=== PATIENT | male | born 1945 | race Caucasian/White ===

== ENCOUNTER → 2017-02-26 | Outpatient (CLI) | payer MEDICARE ==
[2017-02-26 13:36] LABS: Blood Urea Nitrogen 17 mg/dL (9-20); Non-African American GFR(MDRD) >60 (>60 ml/min/1.73 sqM)
--- NOTE | 2017-02-26 14:47 | CT ---
CT CHEST FOR PULMONARY EMBOLISM. EXAMINATION TYPE: CT angio chest DATE OF EXAM: 02/26/2017 INDICATION: Patient has no complaints at time of study. Follow up study for known thoracic aortic an eurysm. CT DLP: 290.3 mGycm, Automated exposure control for dose reduction was used. CONTRAST: Patient injected with 100 mL of Omnipaque 350. COMPARISON: 02/27/2016 TECHNIQUE: CT of the chest is performed on a spiral scan at 2 mm thick sections. Study is performed with intravenous contrast timed for evaluation for pulmonary embolism. This will limit additional po rtions of the evaluation. 3-D MIP images reconstructed by the technologist are reviewed on the compu ter in the coronal and sagittal planes. FINDINGS: No persistent filling defects are evident to suggest an acute pulmonary embolism. No mediastinal or hilar adenopathy enlarged by CT criteria is evident. The ascending aorta diameter at the level of the main pulmonary artery is 4.0 cm. The main pulmonary artery diameter at the bifur cation is 3.2 cm. Coronary artery calcification is present. There is a 0.5 cm nodule within the left lung base. Series 3 image 49. This is an interval change. So me air bronchograms are within the area of pneumonitis within the right middle lobe right infrahilar region. This is increasing peribronchial thickening this region. Limited CT section through the upper abdomen are unremarkable. IMPRESSIONS: 1. No acute pulmonary embolism. 2. Known thoracic aortic aneurysm currently measuring 4.0 cm in AP dimension . No increase in size fr om prior examination is evident.
== END | disposition home or self-care (01) ==
LOC: RADCTMAIN 12:58
PROVIDERS: ATTEND Thoracic Surgery (Cardiothoracic Vascular Surgery)
DX: I71.2 Thoracic aortic aneurysm, without rupture (principal)
CPT/HCPCS: 82565; 84520; 71275; 36415; Q9967

== ENCOUNTER 2017-05-01 10:38 | Inpatient (IN) | payer MEDICARE ==
[2017-05-01 10:56] LABS: Glucose,Whole Blood 112 mg/dL (75-99)
[2017-05-01] MEDS ORDERED: SODIUM CHLORIDE 0.9% 500 ML IV STA (11:16)
--- NOTE | 2017-05-01 11:22 | ED ---
General Adult HPI - General Chief complaint: Neuro Symptoms/Deficit Stated complaint: CVA Time Seen by Provider: 05/01/17 10:45 Source: patient, RN notes reviewed Mode of arrival: wheelchair Limitations: no limitations - History of Present Illness Initial comments: This is a 72-year-old male who presents emergency Department with a past medical history significant for multiple strokes and TIAs. Patient also spastic medical history significant for multiple myeloma and COPD as well as rheumatoid arthritis. Patient comes in today because approximately an hour and a half prior to arrival he started having some increased numbness to the left lower leg and foot and weakness as well. Patient states when he tried to walk he was dragging his foot. Patient states it's much improved now for the foot still feels a little bit numb. Patient denies any headache patient denies any visual disturbance or new speech disturbance. Patient states he's had a problem with his speech ever since a previous stroke but that is been unchanged today. Patient also has some left hand weakness but that is residual from a previous stroke as well. Patient denies any chest pain palpitations difficulty breathing or shortness of breath. Patient denies any recent fever chills or cough. Patient denies any recent trauma. Patient denies abdominal pain patient denies nausea vomiting or diarrhea. - Related Data Home Medications Medication Instructions Recorded Confirmed Omeprazole [Omeprazole] 20 mg PO QAM 07/31/14 05/01/17 Prazosin [Minipress] 1 mg PO HS 07/31/14 05/01/17 Simvastatin [Simvastatin] 10 mg PO HS 07/31/14 05/01/17 Aspirin 81 mg PO HS 08/03/14 05/01/17 Albuterol Inhaler [Ventolin Hfa 2 puff INHALATION Q6HR PRN 05/01/17 05/01/17 Inhaler] Ipratropium/Albuterol Sulfate 1 puff INHALATION RT-QID 05/01/17 05/01/17 [Combivent Respimat Inhaler] Loratadine-Pseudoeph 10-240 mg 1 tab PO HS 05/01/17 05/01/17 [Claritin-D 24 Hr] Tacoma-3 Fatty Acids [Tacoma-3] 1,000 mg PO HS 05/01/17 05/01/17 guaiFENesin [Mucinex] 600 mg PO BID 05/01/17 05/01/17 Allergies Allergy/AdvReac Type Severity Reaction Status Date / Time Sulfa (Sulfonamide Allergy Rash/Hives Verified 05/01/17 11:20 Antibiotics) Review of Systems ROS Statement: Those systems with pertinent positive or pertinent negative responses have been documented in the HPI. ROS Other: All systems not noted in ROS Statement are negative. 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, RIGHT VOCAL CHORD PARTIAL PARALYSIS, LEFT UPPER PALATE PARTIAL PARALYSIS, STATES POSSIBLE BLOOD CLOT IN PAST IN BRAIN History of Any Multi-Drug Resistant Organisms: None Reported Past Surgical History: Appendectomy, Hernia Repair, Orthopedic Surgery, Tonsillectomy Additional Past Surgical History / Comment(s): LEFT BUNION SX, HEMMORIODECTOMY Additional Past Anesthesia/Blood Transfusion Reaction / Comment(s): PARALYZED VOCAL CHORDS Past Psychological History: No Psychological Hx Reported Smoking Status: Former smoker Past Alcohol Use History: Occasional Past Drug Use History: None Reported General Exam - General Exam Comments Initial Comments: GENERAL: Patient is well-developed and well-nourished. Patient is nontoxic and well- hydrated and is in no acute distress. ENT: Neck is soft and supple. No significant lymphadenopathy is noted. Oropharynx is clear. Moist mucous membranes. Neck has full range of motion without eliciting any pain. EYES: The sclera were anicteric and conjunctiva were pink and moist. Extraocular movements were intact and pupils were equal round and reactive to light. Eyelids were unremarkable. PULMONARY: Unlabored respirations. Good breath sounds bilaterally. No audible rales rhonchi or wheezing was noted. CARDIOVASCULAR: There is a regular rate and rhythm without any murmurs gallops or rubs. ABDOMEN: Soft and nontender with normal bowel sounds. No palpable organomegaly was noted. There is no palpable pulsatile mass. SKIN: Skin is clear with no lesions or rashes and otherwise unremarkable. NEUROLOGIC: Patient is alert and oriented x3. Patient has some left-sided facial droop which she states is normal. Patient has some left arm weakness which she states is normal. Patient has some decreased sensation in the left lower leg and foot which she states is new today. Patient has slurred speech but it is at his baseline from a previous stroke. Symmetrical smile. MUSCULOSKELETAL: Normal extremities with adequate strength and full range of motion. No lower extremity swelling or edema. No calf tenderness. LYMPHATICS: No significant lymphadenopathy is noted PSYCHIATRIC: Normal psychiatric evaluation. Normal interpersonal interactions appears functionally intact in deals appropriately with others. No signs of depression. No signs of anxiety. Limitations: no limitations Course Vital Signs 05/01/17 05/01/17 05/01/17 10:41 10:55 11:10 Temperature 97.4 F L 97.8 F 97.7 F Pulse Rate 72 70 97 Respiratory 16 18 18 Rate Blood Pressure 153/88 161/102 161/102 O2 Sat by Pulse 97 94 L 97 Oximetry 05/01/17 05/01/17 11:25 11:55 Temperature 97.8 F 97.8 F Pulse Rate 70 63 Respiratory 16 16 Rate Blood Pressure 155/99 150/94 O2 Sat by Pulse 96 98 Oximetry Medical Decision Making - Medical Decision Making EKG shows normal sinus rhythm at 71 bpm MA interval is 196 QRS is 82 QT interval 364 QTC is 395 per patient's EKG shows no ST segment elevation or depression or T wave abnormalities are noted. CT of the brain shows no acute abnormality - Lab Data Result diagrams: 05/01/17 11:10 05/01/17 11:10 Lab Results 05/01/17 05/01/17 05/01/17 Range/Units 10:52 11:10 11:10 WBC 3.3 L (3.8-10.6) k/uL RBC 3.98 L (4.30-5.90) m/uL Hgb 13.6 (13.0-17.5) gm/dL Hct 41.5 (39.0-53.0) % MCV 104.4 H (80.0-100.0) fL MCH 34.1 (25.0-35.0) pg MCHC 32.7 (31.0-37.0) g/dL RDW 14.1 (11.5-15.5) % Plt Count 187 (150-450) k/uL Neutrophils % 65 % Lymphocytes % 19 % Monocytes % 5 % Eosinophils % 9 % Basophils % 1 % Neutrophils # 2.2 (1.3-7.7) k/uL Lymphocytes # 0.6 L (1.0-4.8) k/uL Monocytes # 0.2 (0-1.0) k/uL Eosinophils # 0.3 (0-0.7) k/uL Basophils # 0.0 (0-0.2) k/uL Macrocytosis Slight PT (9.0-12.0) sec INR (<1.2) APTT (22.0-30.0) sec Sodium (137-145) mmol/L Potassium (3.5-5.1) mmol/L Chloride (98-107) mmol/L Carbon Dioxide (22-30) mmol/L Anion Gap mmol/L BUN (9-20) mg/dL Creatinine (0.66-1.25) mg/dL Est GFR (MDRD) Af Amer (>60 ml/min/1.73 sqM) Est GFR (MDRD) Non-Af (>60 ml/min/1.73 sqM) Glucose (74-99) mg/dL POC Glucose (mg/dL) 112 H (75-99) mg/dL POC Glu Cold Patcher ID Gopal Arroyo Calcium (8.4-10.2) mg/dL Total Bilirubin (0.2-1.3) mg/dL AST (17-59) U/L ALT (21-72) U/L Alkaline Phosphatase (38-126) U/L Total Creatine Kinase 138 (55-170) U/L CK-MB (CK-2) 3.7 H* (0.0-2.4) ng/mL CK-MB (CK-2) Rel Index 2.7 Troponin I <0.012 (0.000-0.034) ng/mL Total Protein (6.3-8.2) g/dL Albumin (3.5-5.0) g/dL 05/01/17 05/01/17 Range/Units 11:10 11:10 WBC (3.8-10.6) k/uL RBC (4.30-5.90) m/uL Hgb (13.0-17.5) gm/dL Hct (39.0-53.0) % MCV (80.0-100.0) fL MCH (25.0-35.0) pg MCHC (31.0-37.0) g/dL RDW (11.5-15.5) % Plt Count (150-450) k/uL Neutrophils % % Lymphocytes % % Monocytes % % Eosinophils % % Basophils % % Neutrophils # (1.3-7.7) k/uL Lymphocytes # (1.0-4.8) k/uL Monocytes # (0-1.0) k/uL Eosinophils # (0-0.7) k/uL Basophils # (0-0.2) k/uL Macrocytosis PT 10.1 (9.0-12.0) sec INR 1.0 (<1.2) APTT 25.2 (22.0-30.0) sec Sodium 130 L (137-145) mmol/L Potassium 4.6 (3.5-5.1) mmol/L Chloride 91 L (98-107) mmol/L Carbon Dioxide 32 H (22-30) mmol/L Anion Gap 7 mmol/L BUN 12 (9-20) mg/dL Creatinine 0.57 L (0.66-1.25) mg/dL Est GFR (MDRD) Af Amer >60 (>60 ml/min/1.73 sqM) Est GFR (MDRD) Non-Af >60 (>60 ml/min/1.73 sqM) Glucose 90 (74-99) mg/dL POC Glucose (mg/dL) (75-99) mg/dL POC Glu Cold Patcher ID Calcium 9.3 (8.4-10.2) mg/dL Total Bilirubin 0.7 (0.2-1.3) mg/dL AST 35 (17-59) U/L ALT 39 (21-72) U/L Alkaline Phosphatase 80 (38-126) U/L Total Creatine Kinase (55-170) U/L CK-MB (CK-2) (0.0-2.4) ng/mL CK-MB (CK-2) Rel Index Troponin I (0.000-0.034) ng/mL Total Protein 7.6 (6.3-8.2) g/dL Albumin 3.9 (3.5-5.0) g/dL Disposition Clinical Impression: Cerebrovascular accident Disposition: ADMITTED IP TO THIS HOSP Referrals: Harish Alvarado DO [Primary Care Provider] - 1-2 days Time of Disposition: 12:52
[2017-05-01 11:27] LABS: Basophils % (A) 1 %; CH 35.3; Eosinophils # (A) 0.3 k/uL (0-0.7); Eosinophils % (A) 9 %; HCT 41.5 % (39.0-53.0); HDW 2.18; HGB 13.6 gm/dL (13.0-17.5); Luc # (Auto) 0.06; Luc % (Auto) 2; Lymphocytes # (A) 0.6 k/uL (1.0-4.8); Lymphocytes % (A) 19 %; MCH 34.1 pg (25.0-35.0); MCHC 32.7 g/dL (31.0-37.0); MCV 104.4 fL (80.0-100.0); Macrocytosis Slight; Mean Platelet Volume 7.7; Monocytes # (A) 0.2 k/uL (0-1.0); Monocytes % (A) 5 %; Neutrophils # (A) 2.2 k/uL (1.3-7.7); Neutrophils % (A) 65 %; RBC 3.98 m/uL (4.30-5.90); RDW 14.1 % (11.5-15.5); WBC 3.3 k/uL (3.8-10.6); WBC (Perox) 3.33
--- NOTE | 2017-05-01 11:31 | XR ---
EXAMINATION TYPE: XR chest 2V DATE OF EXAM: 05/01/2017 COMPARISON: 05/09/2016 HISTORY: Shortness of breath TECHNIQUE: Frontal and lateral views of the chest are obtained. FINDINGS: Scattered senescent parenchymal changes noted. Hyperinflation compatible with COPD. Right middle lobe infiltrate or atelectasis identified. Heart size is stable. Mediastinal structures are stable and grossly unremarkable. No evidence for hilar prominence. Degenerative changes dorsal spine. IMPRESSION: 1. Right middle lobe infiltrate or atelectasis identified.
[2017-05-01 11:35] LABS: ALT 39 U/L (21-72); AST 35 U/L (17-59); Alkaline Phosphatase 80 U/L (38-126); Anion Gap 7 mmol/L; Blood Urea Nitrogen 12 mg/dL (9-20); Calcium 9.3 mg/dL (8.4-10.2); Carbon Dioxide 32 mmol/L (22-30); Chloride 91 mmol/L (98-107); Glucose 90 mg/dL (74-99); Non-African American GFR(MDRD) >60 (>60 ml/min/1.73 sqM); Potassium 4.6 mmol/L (3.5-5.1); Sodium 130 mmol/L (137-145); Total Bilirubin 0.7 mg/dL (0.2-1.3); Total Protein 7.6 g/dL (6.3-8.2)
[2017-05-01 11:42] LABS: Partial Thromboplastin Time 25.2 sec (22.0-30.0); Prothrombin Time 10.1 sec (9.0-12.0)
[2017-05-01 11:46] LABS: Creatine Kinase 138 U/L (55-170)
--- NOTE | 2017-05-01 11:55 | CT ---
EXAMINATION TYPE: CT brain wo con for TPA DATE OF EXAM: 05/01/2017 HISTORY: CVA. Neuro deficits with inability to move left leg. CT DLP: 1116 mGycm. Automated Exposure Control for Dose Reduction was Utilized. TECHNIQUE: CT scan of the head is performed without contrast. COMPARISON: MRI brain October 27, 2011. FINDINGS: There is no acute intracranial hemorrhage or midline shift identified. There is diffuse v entricular and sulcal prominence consistent with diffuse age-related cerebral atrophy. There is low- attenuation in the periventricular white matter consistent with chronic small vessel ischemic change. New metallic foreign body anterior aspect of right globe causes streak artifact limiting evaluation at this level. There is mild to moderate mucosal thickening involving ethmoid and frontal sinuses zeferino aterally. There is mild mucosal thickening in the left sphenoid sinus. IMPRESSION: No acute intracranial hemorrhage or midline shift. There is mild to moderate diffuse ag e-related cerebral atrophy and chronic small vessel ischemic change noted with progression from 2012 MRI present.
[2017-05-01 11:58] LABS: Troponin I <0.012 ng/mL (0.000-0.034)
[2017-05-01 12:02] LABS: Creatine Kinase MB 3.7 ng/mL (0.0-2.4)
[2017-05-01] MEDS ORDERED: ALBUTEROL NEBULIZED 2.5 MG/3 ML INHALATION PRN (15:05)
[2017-05-01] MEDS ORDERED: ALPRAZolam 0.25 MG TAB PO PRN (15:06)
--- NOTE | 2017-05-01 15:28 | US ---
EXAMINATION TYPE: US carotid duplex BILAT DATE OF EXAM: 05/01/2017 COMPARISON: NONE CLINICAL HISTORY: Stenosis. EXAM MEASUREMENTS: RIGHT: Peak Systolic Velocity (PSV) cm/sec ----- Right CCA: 57.9 ----- Right ICA: 56.6 ----- Right ECA: 53.9 ICA/CCA ratio: 1.0 RIGHT: End Diastole cm/sec ----- Right CCA: 13.8 ----- Right ICA: 17.9 ----- Right ECA: 7.7 LEFT: Peak Systolic Velocity (PSV) cm/sec ----- Left CCA: 69.4 ----- Left ICA: 65.8 ----- Left ECA: 59.0 ICA/CCA ratio: 0.9 LEFT: End Diastole cm/sec ----- Left CCA: 19.1 ----- Left ICA: 20. ----- Left ECA: 9.8 VERTEBRALS (direction of flow): Right Vertebral: Antegrade Left Vertebral: Antegrade Rhythm: Normal Mild atherosclerotic plaque with no velocity elevations. Grayscale images show no significant focal plaque at carotid bulb level bilaterally. Velocity measu rements and ratios are within normal limits bilaterally. IMPRESSION: No hemodynamically significant stenosis is seen in either internal carotid artery.
--- NOTE | 2017-05-01 15:54 | FL ---
EXAMINATION TYPE: FL barium swallow w video DATE OF EXAM: 05/01/2017 MODIFIED SWALLOW / DEGLUTITION STUDY CLINICAL HISTORY: Rule out aspiration. Complex history of known vocal cord paralysis TECHNIQUE: Deglutition study is performed utilizing thin liquid barium, honey and nectar thick liqui d barium, barium thick applesauce, and barium coated cracker.. A total of 49 seconds of fluoroscopic time was utilized during procedure. Approximately 6 cine sequences were captured, no images are sent to PACS. COMPARISON: None. FINDINGS: The oral facial satisfactory initiation but there is marked abnormal propagation as there i s absent epiglottis inversion. Single episode of thin liquid barium shows contrast going to esophagus almost equal noncontrast into the trachea without cough reflex. Subsequent episodes of thicker modal ities showed no aspiration but poor or absent normal hypopharyngeal progression. Pooling of material in the proximal esophagus is seen. IMPRESSION: Abnormal study with perry aspiration and loss of normal pharyngeal propagation. Please re mala to speech therapist notes for further details if necessary.
[2017-05-01] MEDS ORDERED: RX INFO: IV CONTRAST WAS GIVEN 1 EACH MISC MISCELLANE PRN (15:59)
[2017-05-01] MEDS ORDERED: NON-FORMULARY DRUG (Ipratropium/Albuterol Sulfate [Combivent Respimat Inhaler] 1 PUFF) INHALATION SCH (16:00)
[2017-05-01] MEDS: hydrALAZINE HCL 20 MG/ML 1 ML VIAL IVP PRN (16:34)
[2017-05-01] MEDS ORDERED: GLYCOPYRROLATE INHALATION PRN (18:10)
[2017-05-01] MEDS ORDERED: INDACATEROL INHALATION PRN (18:10)
[2017-05-01] MEDS ORDERED: ALBUTEROL INHALATION PRN (18:14)
--- NOTE | 2017-05-01 18:28 | CT ---
EXAMINATION TYPE: CT neck chest w con DATE OF EXAM: 05/01/2017 6:09 PM COMPARISON: Chest CT scan 02/26/2017 HISTORY: Patient poor historian. Patient has known bilateral vocal cord paralysis. Patient complain s of difficulty swallowing. Patient had abnormal swallow test. CT DLP: 534.5 mGycm Automated exposure control for dose reduction was used. CONTRAST: CT scan of the neck is performed following with IV Contrast, patient injected with 100 mL of Omnipaqu e 300. Axial images are obtained, coronal and sagittal reformatted images are reviewed. FINDINGS: There is some patchy linear infiltrate and atelectasis along the right major fissure in the right mid dle lobe. There is linear density at the posterior lung bases consistent with also some infiltrate an d atelectasis. There is no pleural effusion. Heart size is normal. Thoracic aorta is atheromatous. I see no filling defects in the pulmonary arteries. There is no evidence of aortic dissection. Ascendin g aorta measures 4 cm. There is no mediastinal adenopathy. There are no hilar masses. There is air in the thoracic esophagus. There is normal branching pattern of the great vessels on the aortic arch. There is bilateral patency of the common internal and external carotid arteries. The carotid artery bifurcations appear widely patent. There is no evidence of stenosis. There is bilateral arterial flow in the vertebral arteries. There is arterial flow in the vertebrobasilar artery system. There is a large right posterior commun icating artery. IMPRESSION: There is bilateral linear infiltrate and atelectasis in the lower lung perrin as above t hat is slightly worse on the left side compared to last exam. There is no significant change on the right side. 4 cm aneurysm of the ascending aorta. No evidence of carotid artery stenosis. Normal vertebral arteri es. No evidence of pulmonary embolism.
[2017-05-01] MEDS ORDERED: LORazepam 2 MG/ML INJ IV PRN (18:36)
[2017-05-01] MEDS: D5W WITH KCL 20 MEQ/L 1,000 ML IV SCH (19:54)
--- NOTE | 2017-05-01 20:48 | HP ---
HISTORY AND PHYSICAL DATE OF SERVICE: 05/01/2017 CHIEF COMPLAINTS: Numbness and weakness of the left leg. HISTORY OF PRESENT ILLNESS: This 72-year-old gentleman with a past medical history of multiple medical problems, including CVA, TIA, GERD, history of rheumatoid arthritis, history of dysphagia, aspiration, history of multiple myeloma, history of appendectomy, being followed by Dr. Harish Matthews in the outpatient setting, was complaining of left leg numbness and tingling and the patient came to [facility] and was admitted for further evaluation and treatment. The patient was evaluated in the ER. There is no evidence of acute stroke at this time. The patient was apparently dragging the left foot. The patient also had a complicated, rather recent neurological illness where the patient has got weakness of the left vocal cord as well as the palate. The patient had surgery and Field implant. Previously patient was seen by Dr. Cullen. Apparently the patient had progressive dysphagia and was aspirating, according to him. Immediately after admission the patient had a videofluoroscopic swallow which showed abdominal study with perry aspiration and loss of normal pharyngeal propagation. The patient was also losing weight, several pounds. The patient at one time weighed 170 pounds, now 120 pounds, according to the patient and family. There is no history of any fever, rigors or chills. No history of headache, loss of consciousness, seizures. Chest x- ray shows possible atelectatic in the right lower lobe, possibly secondary to aspiration. The patient is complaining of generalized weakness, also. The patient apparently had a workup for lupus also with Dr. Vizcaino. The patient has a history of rheumatoid arthritis. The patient also had a swallow evaluation, as mentioned earlier. PAST MEDICAL HISTORY: 1. History of CVA, TIA. 2. History of rheumatoid arthritis. 3. History of Field implant in the throat. 4. History of multiple myeloma. 5. History of EGD. HOME MEDICATIONS: 1. Combivent 1 puff q.i.d. 2. Ventolin HFA 2 puffs q.6 p.r.n. 3. Mucinex 600 mg p.o. b.i.d. 4. Rousseau-3 1000 mg at bedtime. 5. Simvastatin 10 mg at bedtime. 6. Minipress 1 mg at bedtime. 7. Omeprazole 20 mg each morning. 8. Claritin-D 24 at bedtime. 9. Aspirin 81 mg at bedtime. 10.Utibron Neohaler. ALLERGIES: SULFA. FAMILY HISTORY: No history of strokes and cardiac problems in the family. SOCIAL HISTORY: Previous history of smoking. 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 REVIEW OF SYSTEMS: ENT: As mentioned earlier. CARDIOVASCULAR SYSTEM: No angina, palpitations. RESPIRATORY SYSTEM: As mentioned earlier. GI: As mentioned earlier. : As mentioned earlier. NERVOUS SYSTEM: No numbness. Otherwise as mentioned earlier. ALLERGY/IMMUNOLOGY: No asthma, hayfever. MUSCULOSKELETAL: As mentioned earlier. HEMATOLOGY/ONCOLOGY: No history of anemia. ENDOCRINE: No history of diabetes, hypothyroidism. CONSTITUTIONAL: As mentioned earlier. DERMATOLOGY: Negative. RHEUMATOLOGY: Negative. PSYCHIATRY: As mentioned earlier. PHYSICAL EXAMINATION: Patient is alert and oriented x3. Pulse is 65, blood pressure 181/109, respirations 20, temperature 97.6, pulse ox 96% on 2 L. HEENT: Conjunctivae normal. Oral mucosa moist. NECK: No jugular venous distention. No carotid bruit. No lymph node enlargement. CARDIOVASCULAR SYSTEM: S1, S2 muffled. No S3. No S4. RESPIRATORY SYSTEM: Breath sounds diminished at the bases. A few scattered rhonchi and crackles. ABDOMEN: Soft, scaphoid, nontender. No mass palpable. LEGS: No edema. No swelling. NERVOUS SYSTEM: Higher functions as mentioned earlier. Cranial nerves superior gaze paresis present. Exophthalmos present, right eye specifically. The patient had an implant on the eyelid previously. Moves all 4 limbs. Power is normal. Diffusely wasted. No sensory impairment. LYMPHATICS: No lymph node palpable in neck, axillae or groin. SKIN: No ulcer, rash, bleeding. JOINTS: No active deforming arthropathy. Chronic deformities present. LABS: WBC 3.3, hemoglobin 13.6, sodium 130. CK-MB is 3.7. ASSESSMENT: 1. Numbness and weakness of the left leg; possible acute transient ischemic attack. 2. Progressive dysphagia with left vocal cord as well as paralysis. Rule out bulbar or pseudobulbar palsy. 3. Dysphagia with aspiration risk. 4. Right lower lobe atelectasis. 5. Significant weakness and wasting and severe protein-calorie malnutrition, present on admission. 6. Leukopenia. 7. Increased mean corpuscular volume. 8. Hyponatremia. 9. History of rheumatoid arthritis. 10.History of cerebrovascular accident, transient ischemic attacks. 11.History of Phillips's esophagus and gastroesophageal reflux disease. RECOMMENDATIONS AND DISCUSSION: In this 72-year-old gentleman who presented with multiple complex medical issues , we will monitor the patient closely, continue the current medications, continue symptomatic treatment. Otherwise at this time we will continue with the neurovascular workup. Neurology will be consulted. Of concern is the significant aspiration and the findings on chest x-ray. I would strongly recommend the patient be kept n.p.o. and dietary evaluation for further nutritional supplement and possibly PEG tube placement. The prognosis is extremely guarded. We will continue with the neuro checks to rule out the possibility of an acute stroke. Otherwise, continue the rest of the medications, bronchodilators and incentive spirometry, proton pump inhibitors. Rest of the recommendations from Neurology. I discussed with the family at length, and family understands and agrees. Further recommendations to follow. KLAUS / OJN: [id number] / AFTAB
[2017-05-01] MEDS ORDERED: NON-FORMULARY DRUG (Omega-3 Fatty Acids [Omega-3] 1,000 MG) PO SCH (21:00)
[2017-05-01] MEDS: LEVALBUTEROL NEB 1.25 MG/3 ML AMP INHALATION SCH (21:00)
[2017-05-01] MEDS: GLYCOPYRROLATE INHALATION SCH (21:03)
[2017-05-01] MEDS: INDACATEROL INHALATION SCH (21:03)
[2017-05-01] MEDS: PRAZOSIN 1 MG CAP PO SCH (21:43)
[2017-05-01] MEDS: MELATONIN 3 MG TABLET PO SCH (21:43)
[2017-05-01] MEDS: LORATADINE-PSEUDOEPH 5-120 MG 1 EACH TAB.ER.12H PO SCH (21:43)
[2017-05-01] MEDS: guaiFENesin 600 MG TABLET.ER PO SCH (21:43)
[2017-05-01] MEDS: ATORVASTATIN 40 MG TAB PO SCH (21:43)
[2017-05-01] MEDS: ASPIRIN 81 MG PO SCH (21:43)
[2017-05-01] MEDS: HEPARIN SODIUM,PORCINE 5,000 UNIT/ML 1 ML VIAL SQ SCH (21:50)
[2017-05-01 22:13] LABS: Glucose,Whole Blood 86 mg/dL (75-99)
[2017-05-01] MEDS: OXYMETAZOLINE 0.05% NASL SPRAY 1 SPRAY BOTTLE NASAL SCH (22:21)
[2017-05-01] MEDS: ACETAMINOPHEN IV (For NPO) 1,000 MG in EMPTY BAG 1 BAG IVPB PRN (22:22)
[2017-05-02 05:33] LABS: Appearance,Urine Clear (Clear); Bilirubin,Urine Negative (Negative); Glucose,Urine (UA) Negative (Negative); Ketones,Urine Negative (Negative); Leukocyte Esterase,Urine Negative (Negative); Nitrite,Urine Negative (Negative); Protein,Urine Negative (Negative); Specific Gravity,Urine 1.018 (1.001-1.035); UA Billing (MACRO vs. MICRO) CHEM; Urobilinogen,Urine <2.0 mg/dL (<2.0)
[2017-05-02 05:48] LABS: Glucose,Whole Blood 91 mg/dL (75-99)
--- NOTE | 2017-05-02 05:58 | P.CNNES ---
History of Present Illness Consult date: 05/01/17 Requesting physician: Madison Bernstein Reason for Consult: TIA/CVA Chief complaint: left lower extremity deficit/weakness History of Present Illness: Neurology today requested a consultation a 72-year-old male with past medical history of CVA, TIA, GERD, history of rheumatoid arthritis, history of dysphagia , aspiration, history of multiple myeloma, history of appendectomy who was complaining of left leg numbness and tingling as well as left-sided weakness in the left lower extremity with ambulation. Initially when the patient began ambulating in the morning, the patient was unable to utilize left lower extremity and experienced what appears to be left-sided neglect in the left lower extremity. At home he began reportedly dragging his left lower extremity while ambulating. Patient presented to ED and the patient also complained of left vocal weakness and the left upper palate. Patient had surgery in [facility]. Patient reports he has had intermittent progressive dysphagia and aspiration at home. Patient was sent for a swallow study with imaging which showed perry aspiration and loss of normal pharyngeal propagation. Patient was also losing weight patient has lost approximately 50 pounds according to the ED note however it does not provide a timeframe. No history of fever, rigors or chills. No history of headache, loss of consciousness, seizures. Chest x-ray shows possible atelectasis right lower lobe possibly secondary to aspiration. Patient does have generalized weakness. Rheumatology has evaluated the patient for lupus. He does have a known history of rheumatoid arthritis. On contact, speech therapy was in the room. Speech therapy requested a CT of the neck with contrast. Study was ordered per request. Patient was alert and oriented 3, semi-followers, resting in bed in no acute distress. Patient reiterated medications above stated that with the exception of his vocal changes , he had returned to baseline. Patient expressed no other new neurological deficits other than previous notations. Patient denied any new lateralizing weakness other than stated. Patient denied vision changes, dizziness, new numbness and tingling, confusion. Review of laboratory blood work notes hyponatremia, elevated CK-MB. Review of Systems all systems not noted in HPI or negative Past Medical History Past Medical History: Blood Disorder, CVA/TIA, GERD/Reflux, Rheumatoid Arthritis (RA) Additional Past Medical History / Comment(s): DYSPHAGIA, ASPIRATION PRECAUTIONS , 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 Gaping esophagus, barretts esophagus. EGD. Multiple myeloma History of Any Multi-Drug Resistant Organisms: None Reported Past Surgical History: Appendectomy, Hernia Repair, Orthopedic Surgery, Tonsillectomy Additional Past Surgical History / Comment(s): LEFT BUNION SX, HEMMORIODECTOMY, (R) ring finger sx. Nasal reduction Additional Past Anesthesia/Blood Transfusion Reaction / Comment(s): PARALYZED VOCAL CHORDS Past Psychological History: No Psychological Hx Reported Smoking Status: Former smoker Past Alcohol Use History: Occasional Past Drug Use History: None Reported Medications and Allergies Home Medications Medication Instructions Recorded Confirmed Type Omeprazole [Omeprazole] 20 mg PO QAM 07/31/14 05/01/17 History Prazosin [Minipress] 1 mg PO HS 07/31/14 05/01/17 History Simvastatin [Simvastatin] 10 mg PO HS 07/31/14 05/01/17 History Aspirin 81 mg PO HS 08/03/14 05/01/17 History Albuterol Inhaler [Ventolin Hfa 2 puff INHALATION Q6HR PRN 05/01/17 05/01/17 History Inhaler] Indacaterol/Glycopyrrolate 05/01/17 History [Utibron Neohaler 27.5-15.6 Mcg] Ipratropium/Albuterol Sulfate 1 puff INHALATION RT-QID 05/01/17 05/01/17 History [Combivent Respimat Inhaler] Loratadine-Pseudoeph 10-240 mg 1 tab PO HS 05/01/17 05/01/17 History [Claritin-D 24 Hr] [place]-3 Fatty Acids [[place]-3] 1,000 mg PO HS 05/01/17 05/01/17 History guaiFENesin [Mucinex] 600 mg PO BID 05/01/17 05/01/17 History Allergies Allergy/AdvReac Type Severity Reaction Status Date / Time Sulfa (Sulfonamide Allergy Rash/Hives Verified 05/01/17 11:20 Antibiotics) Physical Examination - Vital Signs Vital Signs: Vital Signs Temp Pulse Pulse Resp BP BP BP 05/02/17 03:53 65 18 05/02/17 03:48 98.0 F 65 18 167/85 05/02/17 00:00 97.8 F 76 18 144/84 05/01/17 21:12 77 05/01/17 21:02 77 05/01/17 20:00 97.7 F 78 19 160/92 05/01/17 16:32 97.6 F 65 20 181/109 186/106 05/01/17 16:31 68 18 05/01/17 13:11 96.8 F L 68 18 192/108 05/01/17 13:06 97.3 F L 68 20 05/01/17 12:55 97.7 F 66 18 162/101 05/01/17 11:55 97.8 F 63 16 150/94 05/01/17 11:40 98 F 61 17 150/94 05/01/17 11:25 97.8 F 70 16 155/99 05/01/17 11:10 97.7 F 97 18 161/102 05/01/17 10:55 97.8 F 70 18 161/102 05/01/17 10:41 97.4 F L 72 16 153/88 Pulse Ox 05/02/17 03:53 05/02/17 03:48 94 L 05/02/17 00:00 97 05/01/17 21:12 05/01/17 21:02 05/01/17 20:00 96 05/01/17 16:32 98 05/01/17 16:31 05/01/17 13:11 96 05/01/17 13:06 98 05/01/17 12:55 97 05/01/17 11:55 98 05/01/17 11:40 96 05/01/17 11:25 96 05/01/17 11:10 97 05/01/17 10:55 94 L 05/01/17 10:41 97 Intake and Output 05/01/17 05/01/17 05/02/17 14:59 22:59 06:59 Intake Total 500 760 Output Total 600 Balance 500 160 Intake: Intake, IV Titration 500 760 Amount ACETAMINOPHEN IV (For NPO 400 ) 1,000 mg In Empty Bag 1 bag @ 400 mls/hr IVPB Q6HR PRN Rx#:[id number] D5w with KCl 20 Meq/l 1, 360 000 ml @ 60 mls/hr IV . [id number] MARILYN Rx#:[id number] Sodium Chloride 0.9% 500 500 ml @ 999 mls/hr IV .Q31M STA Rx#:[id number] Output: Urine 600 Other: Voiding Method Toilet Toilet Urinal # Voids 1 1 Weight 58.967 kg 58.967 kg Patient Weight 05/02/17 06:59 Weight 58.967 kg Constitutional: AOx3, cooperative HEENT: NC/AT, no facial asymmetry is seen. 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 Neurological: CN II-XII in tact, patient was AOx3, speech and language are normal the patient has vocal changes and pitch changes that are altered from baseline, no unilateralizing weakness, no seizure activity note on physical exam. Sensation was normal. Integementary: no rash, no erythema Psychiatric: mood and affect appropriate Results - Laboratory Findings CBC and BMP: 05/01/17 11:10 05/01/17 11:10 Abnormal Lab Findings: Abnormal Labs 05/01/17 05/01/17 05/01/17 10:52 11:10 11:10 WBC 3.3 L RBC 3.98 L MCV 104.4 H Lymphocytes # 0.6 L Sodium Chloride Carbon Dioxide Creatinine POC Glucose (mg/dL) 112 H CK-MB (CK-2) 3.7 H* 05/01/17 11:10 WBC RBC MCV Lymphocytes # Sodium 130 L Chloride 91 L Carbon Dioxide 32 H Creatinine 0.57 L POC Glucose (mg/dL) CK-MB (CK-2) Assessment and Plan (1) TIA (transient ischemic attack) Status: Acute (2) Dysphagia Status: Acute (3) Dysphasia Status: Acute (4) Aspiration into airway Status: Acute (5) Multiple myeloma Status: Acute Plan: Patient is known to have multiple comorbidities and is a complicated patient given his overall health status. Patient did have a CT of the brain which noted no acute intracranial hemorrhage or midline shift. Mild to moderate diffuse age-related cerebral atrophy and chronic small vessel ischemic changes with progression from 2012 MRI. Carotid Doppler noted no hemodynamically significant stenosis. Ordered: Laboratory blood work to include: ESR CRP LRP4 Ab MUSK Ab Acetylcholine receptor binding antibody Serum homocystine level EEG Lipid panel Neuro checks as ordered continue 81 mg aspirin daily prescribed Plavix 75 mg by mouth daily at bedtime Continue Lipitor 40 mg daily at bedtime Given symptoms upon rising, it is possible that the patient did experience a TIA , rule out myasthenia gravis due to the patient's difficulty with speech and swallowing, limb weakness and elevated CK-MB. His current status is returned to baseline with the exception of his vocal changes, speech, swallowing difficulties. status: Neurology will continue to follow and provide further updates as needed or warranted. Any questions contact our office. I discussed the patient's pertinent medical information with Dr. Sanchez. He agrees with the plan of care as implemented.
[2017-05-02 06:32] LABS: Basophils % (A) 1 %; CH 34.6; Eosinophils # (A) 0.2 k/uL (0-0.7); Eosinophils % (A) 10 %; HCT 41.4 % (39.0-53.0); HDW 2.12; HGB 13.6 gm/dL (13.0-17.5); Luc # (Auto) 0.08; Luc % (Auto) 4; Lymphocytes # (A) 0.8 k/uL (1.0-4.8); Lymphocytes % (A) 33 %; MCH 34.5 pg (25.0-35.0); MCHC 32.8 g/dL (31.0-37.0); MCV 105.1 fL (80.0-100.0); Macrocytosis Slight; Mean Platelet Volume 7.4; Monocytes # (A) 0.1 k/uL (0-1.0); Monocytes % (A) 6 %; Neutrophils # (A) 1.1 k/uL (1.3-7.7); Neutrophils % (A) 47 %; RBC 3.94 m/uL (4.30-5.90); RDW 13.4 % (11.5-15.5); WBC 2.3 k/uL (3.8-10.6); WBC (Perox) 2.46
[2017-05-02] MEDS: guaiFENesin 600 MG TABLET.ER PO SCH ×2 (06:46→22:10)
[2017-05-02 07:09] LABS: Anion Gap 6 mmol/L; Blood Urea Nitrogen 8 mg/dL (9-20); Calcium 9.2 mg/dL (8.4-10.2); Carbon Dioxide 31 mmol/L (22-30); Chloride 94 mmol/L (98-107); Cholesterol 140 mg/dL (<200); Glucose 88 mg/dL (74-99); HDL Cholesterol 62 mg/dL (40-60); Non-African American GFR(MDRD) >60 (>60 ml/min/1.73 sqM); Potassium 4.1 mmol/L (3.5-5.1); Sodium 131 mmol/L (137-145)
[2017-05-02 07:29] LABS: C Reactive Protein <5.0 mg/L (<10.0)
[2017-05-02] MEDS ORDERED: PANTOPRAZOLE 40 MG TABLET PO SCH (07:30)
[2017-05-02] MEDS: LEVALBUTEROL NEB 1.25 MG/3 ML AMP INHALATION SCH ×3 (07:47→19:40)
[2017-05-02] MEDS: GLYCOPYRROLATE INHALATION SCH ×2 (07:50→19:40)
[2017-05-02] MEDS: INDACATEROL INHALATION SCH ×2 (07:50→19:40)
[2017-05-02 08:43] LABS: Erythrocyte Sedimentation Rate 10 mm/hr (0-15)
[2017-05-02] MEDS: HEPARIN SODIUM,PORCINE 5,000 UNIT/ML 1 ML VIAL SQ SCH ×2 (08:47→20:16)
[2017-05-02] MEDS: PANTOPRAZOLE 40 MG/10 ML VIAL IVP SCH (08:47)
[2017-05-02] MEDS ORDERED: NON-FORMULARY DRUG (Omeprazole [Omeprazole] 20 MG) PO SCH (09:00)
[2017-05-02] MEDS: OXYMETAZOLINE 0.05% NASL SPRAY 1 SPRAY BOTTLE NASAL SCH ×2 (09:05→22:13)
[2017-05-02] MEDS: D5W WITH KCL 20 MEQ/L 1,000 ML IV SCH (09:05)
[2017-05-02 11:59] LABS: Glucose,Whole Blood 112 mg/dL (75-99)
[2017-05-02] MEDS ORDERED: MVI, ADULT NO.4 WITH VIT K 10 ML, TRACE (CONC-1ML/DOSE) 1 ML in AMINO ACID 4.25%-D10W+L... IV SCH ×3 (15:00)
[2017-05-02 15:09] LABS: Ionized Calcium 4.9 mg/dL (4.5-5.3)
[2017-05-02 15:17] LABS: ALT 38 U/L (21-72); AST 33 U/L (17-59); Alkaline Phosphatase 93 U/L (38-126); Anion Gap 9 mmol/L; Blood Urea Nitrogen 6 mg/dL (9-20); Calcium 9.3 mg/dL (8.4-10.2); Carbon Dioxide 31 mmol/L (22-30); Chloride 92 mmol/L (98-107); Glucose 111 mg/dL (74-99); Magnesium 1.7 mg/dL (1.6-2.3); Non-African American GFR(MDRD) >60 (>60 ml/min/1.73 sqM); Phosphorus 3.9 mg/dL (2.5-4.5); Potassium 4.3 mmol/L (3.5-5.1); Sodium 132 mmol/L (137-145); Total Bilirubin 0.7 mg/dL (0.2-1.3); Total Protein 7.8 g/dL (6.3-8.2)
[2017-05-02] MEDS: ACETAMINOPHEN IV (For NPO) 1,000 MG in EMPTY BAG 1 BAG IVPB PRN (15:33)
[2017-05-02 17:14] LABS: Glucose,Whole Blood 111 mg/dL (75-99)
[2017-05-02] MEDS: INSULIN LISPRO (humaLOG) 300 UNIT/3 ML VIAL SQ SCH ×2 (17:36→23:51)
[2017-05-02] MEDS: FAT EMULSION 20% 250 ML in EMPTY BAG 1 BAG IV SCH (17:50)
--- NOTE | 2017-05-02 18:07 | PN ---
PROGRESS NOTE DATE OF SERVICE: 05/02/2017 INTERVAL HISTORY: This 72-year-old gentleman who was admitted with numbness and weakness of the left side is being evaluated for TIA. Patient also has problems with dysphagia. The patient also has significant laceration also. 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 No chest pain. No palpitations. No fever. PAST MEDICAL HISTORY: Reviewed. REVIEW OF SYSTEMS: CARDIOVASCULAR: No angina. No palpitations. Respiration as mentioned earlier. GI: As mentioned earlier. no dysuria or retention. Nervous system as mentioned earlier. CURRENT MEDICATIONS ARE: Reviewed and include: 1. Tylenol 1000 mg q.6h p.r.n. 2. Ventolin 2 puffs q.i.d. p.r.n. 3. Xanax 0.5 t.i.d. 4. Aspirin 81 mg daily. 5. Lipitor 40 mg q.h.s. 6. TPN. 7. Mucinex. 8. Apresoline. 9. Meloxicam. 10.Xopenex. 11.Claritin-D. 12.Melatonin. 14.Protonix. PHYSICAL EXAM: Patient is alert, oriented times three. Pulse 74, blood pressure 116/68, respiration 18, temp 97 degrees, pulse ox 97% on room air. HEENT: Conjunctivae normal. NECK: No jugular venous distention. CARDIOVASCULAR: S1, S2 muffled. Respiration: Breath sounds diminished in the bases. A few scattered rhonchi and crackles. Emphysematous. ABDOMEN: Soft, nontender. No mass palpable. Legs no edema and no swelling. NERVOUS SYSTEM: Higher functions as mentioned. Moves all four limbs. No focal deficits. Lymphatics: No lymph nodes palpable in the neck, axillae or groin. Skin: No ulcer, rashes or bleeding. LAB STUDIES: WBC 2.6, hemoglobin 13.6, sodium 131. ASSESSMENT: 1. Numbness and weakness left leg possible acute transient ischemic attack. 2. dysphagia with left vocal cord as well as paralysis rule out bulbar palsy palsy. 3. Dysphagia with aspiration risk. 4. Right lower lobe atelectasis. 5. Significant weakness and recent severe protein calorie malnutrition. Present on admission. 6. Gait dysfunction. 7. Leukopenia. 8. Increased MCV. 9. Hyponatremia. 10.History of rheumatoid arthritis. 11.History of cerebrovascular accident, transient ischemic attack. 12.History of Phillips's esophagus and gastroesophageal reflux disease. RECOMMENDATIONS AND DISCUSSION: Recommend to continue current medications, management. Symptomatic treatment. Otherwise, at this time, I would recommend continue with the current medications. Continue the bronchodilators. TPN has been initiated. I would also recommend consultation with Dr. Joseph for a PEG tube. Discussed with dietitian and discussed with family at length. Prognosis extremely guarded because of multiple complex medical issues. Further recommendations to follow. MMODL / IJN: [id number] / MTDD
[2017-05-02 20:50] LABS: Glucose,Whole Blood 118 mg/dL (75-99)
[2017-05-02] MEDS: PRAZOSIN 1 MG CAP PO SCH (22:10)
[2017-05-02] MEDS: ATORVASTATIN 40 MG TAB PO SCH (22:10)
[2017-05-02] MEDS: LORATADINE-PSEUDOEPH 5-120 MG 1 EACH TAB.ER.12H PO SCH (22:10)
[2017-05-02] MEDS: MELATONIN 3 MG TABLET PO SCH (22:10)
[2017-05-02] MEDS: ASPIRIN 81 MG PO SCH (22:10)
--- NOTE | 2017-05-02 23:06 | P.PN ---
Subjective Progress Note Date: 05/02/17 Principal diagnosis: TIA Neurology is following on a 72-year-old male past medical history of CVA, TIA, GERD, history of rheumatoid arthritis, dysphagia, aspiration, history of multiple myeloma, history of appendectomy and was complaining of left leg numbness and tingling as well as left-sided weakness in the left lower extremity with ambulation. Initially when the patient began ambulating yesterday, the patient was unable to utilize the left lower extremity and experienced what appears to be left-sided neglect in the left lower extremity. At home he began reportedly dragging his left lower extremity while ambulating. Patient also complained of left focal weakness in the left upper palate. Patient has a past surgery to the throat with placement of a Field implant. Patient reports he has had intermittent progressive dysphagia, dysphasia and aspiration at home. Patient was sent for a swallow study which showed perry aspiration loss of normal pharyngeal propagation. Patient was also losing weight patient has lost partially 50 pounds according to the ED note however that does not provide a timeframe. No history of fever, rigors or chills. No history of headache, loss of consciousness or seizure. Chest x-ray showed possible atelectasis in the right lower lobe possibly secondary to aspiration. Patient does have generalized weakness. Rheumatology has evaluated the patient for lupus. He does have a known history of rheumatological arthritis. Interval update: May 02, 2017 On contact, patient was alert and oriented 3. He still complained of ongoing dysphagia but stated that his left lower extremity was almost back to baseline. Patient was semi fowlers in bed resting in no acute distress. Previously, the patient stated he had returned to baseline however he clarified stating that he was actually approximately 80% return to baseline yesterday. Patient denied vision changes, dizziness, new numbness and tingling, confusion. Review of laboratory blood work noted hyponatremia and elevated CK-MB. Objective - Vital Signs Vital signs: Vital Signs Temp 97.3 F L 05/02/17 20:00 Pulse 73 05/02/17 20:00 Resp 19 05/02/17 20:00 BP 159/94 05/02/17 20:00 Pulse Ox 93 L 05/02/17 20:00 Intake & Output 05/02/17 05/02/17 05/03/17 06:59 18:59 06:59 Intake Total 760 720 60 Output Total 600 0 Balance 160 720 60 Weight 54.6 kg 54.6 kg Intake: Intake, IV Titration 760 720 60 Amount ACETAMINOPHEN IV (For NPO 400 ) 1,000 mg In Empty Bag 1 bag @ 400 mls/hr IVPB Q6HR PRN Rx#:[id number] D5w with KCl 20 Meq/l 1, 360 720 60 000 ml @ 60 mls/hr IV . [id number] MARILYN Rx#:[id number] Output: Urine 600 0 Other: Voiding Method Toilet Toilet Toilet Urinal Urinal Urinal # Voids 1 1 - Exam Constitutional: AOx3, cooperative HEENT: NC/AT, no facial asymmetry is seen. Throat: Supple, no masses Respiratory: No increased work of breathing Cardiac: Regular rate and Rhythm GI: non tender, non distended Musculoskeletal: Maintenance Foreman strengths are equal bilaterally 4/5, Lower extremity strengths are equal bilaterally at 4/5. Neurological: CN II-XII in tact, patient was AOx3, speech and language are normal the patient has vocal changes and pitch changes that are altered from baseline, unilateralizing weakness in the left lower extremity, no seizure activity note on physical exam. Sensation was normal. Integementary: no rash, no erythema Psychiatric: mood and affect appropriate - Labs CBC & Chem 7: 05/02/17 05:27 05/02/17 14:52 Labs: Abnormal Lab Results - Last 24 Hours (Table) 05/02/17 05/02/17 05/02/17 Range/Units 05:27 05:27 11:33 WBC 2.3 L (3.8-10.6) k/uL RBC 3.94 L (4.30-5.90) m/uL MCV 105.1 H (80.0-100.0) fL Neutrophils # 1.1 L (1.3-7.7) k/uL Lymphocytes # 0.8 L (1.0-4.8) k/uL Sodium 131 L (137-145) mmol/L Chloride 94 L (98-107) mmol/L Carbon Dioxide 31 H (22-30) mmol/L BUN 8 L (9-20) mg/dL Creatinine 0.48 L (0.66-1.25) mg/dL Glucose (74-99) mg/dL POC Glucose (mg/dL) 112 H (75-99) mg/dL HDL Cholesterol 62 H (40-60) mg/dL 05/02/17 05/02/17 05/02/17 Range/Units 14:52 16:54 20:47 WBC (3.8-10.6) k/uL RBC (4.30-5.90) m/uL MCV (80.0-100.0) fL Neutrophils # (1.3-7.7) k/uL Lymphocytes # (1.0-4.8) k/uL Sodium 132 L (137-145) mmol/L Chloride 92 L (98-107) mmol/L Carbon Dioxide 31 H (22-30) mmol/L BUN 6 L (9-20) mg/dL Creatinine 0.49 L (0.66-1.25) mg/dL Glucose 111 H (74-99) mg/dL POC Glucose (mg/dL) 111 H 118 H (75-99) mg/dL HDL Cholesterol (40-60) mg/dL Assessment and Plan (1) TIA (transient ischemic attack) Status: Acute (2) Dysphagia Status: Acute (3) Dysphasia Status: Acute (4) Aspiration into airway Status: Acute (5) Multiple myeloma Status: Acute Plan: Patient is known to have multiple comorbidities and is a complicated patient given his overall health status. Patient did have a CT of the brain which noted no acute intracranial hemorrhage or midline shift. Mild to moderate diffuse age-related cerebral atrophy and chronic small vessel ischemic changes with progression from 2012 MRI. Carotid Doppler noted no hemodynamically significant stenosis. Ordered: Laboratory blood work to include: ESRpending CRPpending LRP4 Ab MUSK Ab-pending Acetylcholine receptor binding antibodypending Serum homocystine levelpending EEGpending Lipid panel Neuro checks as ordered continue 81 mg aspirin daily prescribed Plavix 75 mg by mouth daily at bedtime Continue Lipitor 40 mg daily at bedtime MRI of the brain with and without contrast Given symptoms upon rising, it is possible that the patient did experience a TIA , rule out myasthenia gravis due to the patient's difficulty with speech and swallowing, limb weakness and elevated CK-MB. His current status in the left lower extremity is almost returned to baseline. Patient still has difficulty with his vocal changes, speech, swallowing difficulties. status: Neurology will continue to follow and provide further updates as needed or warranted. Any questions contact our office. I discussed the patient's pertinent medical information with Dr. Sanchez. He agrees with the plan of care as implemented.
[2017-05-02 23:36] LABS: Glucose,Whole Blood 116 mg/dL (75-99)
[2017-05-03] MEDS: D5W WITH KCL 20 MEQ/L 1,000 ML IV SCH (00:40)
[2017-05-03 03:27] LABS: Glucose,Whole Blood 114 mg/dL (75-99)
[2017-05-03] MEDS: 1: MVI, ADULT NO.4 WITH VIT K 10 ML, TRACE (CONC-1ML/DOSE) 1 ML in AMINO ACID 4.25%-D10W IV SCH ×6 (04:22→15:18)
[2017-05-03 05:52] LABS: Glucose,Whole Blood 111 mg/dL (75-99)
[2017-05-03] MEDS: INSULIN LISPRO (humaLOG) 300 UNIT/3 ML VIAL SQ SCH ×4 (06:07→23:59)
[2017-05-03 06:33] LABS: Ionized Calcium 4.9 mg/dL (4.5-5.3)
[2017-05-03 06:44] LABS: Anion Gap 9 mmol/L; Basophils % (A) 0 %; Blood Urea Nitrogen 8 mg/dL (9-20); CH 34.5; CHCM 33.1; Calcium 9.6 mg/dL (8.4-10.2); Carbon Dioxide 29 mmol/L (22-30); Chloride 94 mmol/L (98-107); Eosinophils # (A) 0.2 k/uL (0-0.7); Eosinophils % (A) 6 %; Glucose 112 mg/dL (74-99); HDW 2.13; HGB 14.7 gm/dL (13.0-17.5); Luc # (Auto) 0.09; Luc % (Auto) 3; Lymphocytes # (A) 1.1 k/uL (1.0-4.8); Lymphocytes % (A) 31 %; MCH 34.4 pg (25.0-35.0); MCHC 32.8 g/dL (31.0-37.0); MCV 104.9 fL (80.0-100.0); Macrocytosis Slight; Magnesium 1.9 mg/dL (1.6-2.3); Mean Platelet Volume 7.4; Monocytes # (A) 0.2 k/uL (0-1.0); Monocytes % (A) 6 %; Neutrophils # (A) 1.9 k/uL (1.3-7.7); Neutrophils % (A) 54 %; Non-African American GFR(MDRD) >60 (>60 ml/min/1.73 sqM); Phosphorus 4.5 mg/dL (2.5-4.5); Potassium 4.6 mmol/L (3.5-5.1); RBC 4.29 m/uL (4.30-5.90); RDW 13.4 % (11.5-15.5); Sodium 132 mmol/L (137-145); WBC 3.5 k/uL (3.8-10.6); WBC (Perox) 3.12
[2017-05-03] MEDS: guaiFENesin 600 MG TABLET.ER PO SCH ×2 (06:58→21:05)
[2017-05-03] MEDS: LEVALBUTEROL NEB 1.25 MG/3 ML AMP INHALATION SCH ×4 (08:09→19:18)
[2017-05-03] MEDS: GLYCOPYRROLATE INHALATION SCH ×2 (08:11→19:28)
[2017-05-03] MEDS: INDACATEROL INHALATION SCH ×2 (08:11→19:28)
[2017-05-03] MEDS: OXYMETAZOLINE 0.05% NASL SPRAY 1 SPRAY BOTTLE NASAL SCH ×2 (09:01→21:08)
[2017-05-03] MEDS: HEPARIN SODIUM,PORCINE 5,000 UNIT/ML 1 ML VIAL SQ SCH ×2 (09:01→21:05)
[2017-05-03] MEDS: PANTOPRAZOLE 40 MG/10 ML VIAL IVP SCH (09:01)
[2017-05-03 11:53] LABS: Glucose,Whole Blood 138 mg/dL (75-99)
--- NOTE | 2017-05-03 15:47 | P.PN ---
Subjective Progress Note Date: 05/03/17 Principal diagnosis: TIA Neurology is following on a 72-year-old male past medical history of CVA, TIA, GERD, history of rheumatoid arthritis, dysphagia, aspiration, history of multiple myeloma, history of appendectomy and was complaining of left leg numbness and tingling as well as left-sided weakness in the left lower extremity with ambulation. Initially when the patient began ambulating yesterday, the patient was unable to utilize the left lower extremity and experienced what appears to be left-sided neglect in the left lower extremity. At home he began reportedly dragging his left lower extremity while ambulating. Patient also complained of left focal weakness in the left upper palate. Patient has a past surgery to the throat with placement of a Field implant. Patient reports he has had intermittent progressive dysphagia, dysphasia and aspiration at home. Patient was sent for a swallow study which showed perry aspiration loss of normal pharyngeal propagation. Patient was also losing weight patient has lost partially 50 pounds according to the ED note however that does not provide a timeframe. No history of fever, rigors or chills. No history of headache, loss of consciousness or seizure. Chest x-ray showed possible atelectasis in the right lower lobe possibly secondary to aspiration. Patient does have generalized weakness. Rheumatology has evaluated the patient for lupus. He does have a known history of rheumatological arthritis. Interval update: May 03, 2017 Patient was AOx3, resting in bed and in no acute distress. He states that dysphagia and dysphasia has decreased mildly since yesterday. Patient is inquiring about possible caloric management and supplementation. May 02, 2017 On contact, patient was alert and oriented 3. He still complained of ongoing dysphagia but stated that his left lower extremity was almost back to baseline. Patient was semi fowlers in bed resting in no acute distress. Previously, the patient stated he had returned to baseline however he clarified stating that he was actually approximately 80% return to baseline yesterday. Patient denied vision changes, dizziness, new numbness and tingling, confusion. Review of laboratory blood work noted hyponatremia and elevated CK-MB. Objective - Vital Signs Vital signs: Vital Signs Temp 96.7 F L 05/03/17 15:33 Pulse 65 05/03/17 15:33 Resp 16 05/03/17 15:33 BP 159/95 05/03/17 15:33 Pulse Ox 96 05/03/17 15:33 Intake & Output 05/02/17 05/03/17 05/03/17 18:59 06:59 18:59 Intake Total 720 729 Output Total 650 250 Balance 720 79 -250 Weight 54.6 kg 53.6 kg Intake: Intake, IV Titration 720 729 Amount Amino Acid 4.25%-D10w+ 140 Lytes*E* 1,000 ml @ 90 mls/hr IV .BY DURATION MARILYN Rx#:[id number] D5w with KCl 20 Meq/l 1, 720 000 ml @ 60 mls/hr IV . [id number] MARILYN Rx#:[id number] Fat Emulsion 20% 250 ml 189 In Empty Bag 1 bag @ 21 mls/hr IV DAILY@1800 MARILYN Rx#:[id number] Mvi, Adult No.4 with Vit 400 K 10 ml Trace (Conc-1Ml/ Dose) 1 ml In Amino Acid 4.25%-D10w+Lytes*E* 1,000 ml @ 50 mls/hr IV . [id number] MARILYN Rx#:[id number] Output: Urine 650 250 Other: Voiding Method Toilet Toilet Toilet Urinal Urinal Urinal # Voids 1 1 1 - Exam Constitutional: AOx3, cooperative HEENT: NC/AT, no facial asymmetry is seen. 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 Neurological: CN II-XII in tact, patient was AOx3, speech and language are normal the patient has vocal changes and pitch changes that are altered from baseline, unilateralizing weakness in the left lower extremity, no seizure activity note on physical exam. Sensation was normal. Integementary: no rash, no erythema Psychiatric: mood and affect appropriate - Labs CBC & Chem 7: 05/03/17 05:28 05/03/17 05:28 Labs: Abnormal Lab Results - Last 24 Hours (Table) 05/02/17 05/02/17 05/02/17 Range/Units 16:54 20:47 23:32 WBC (3.8-10.6) k/uL RBC (4.30-5.90) m/uL MCV (80.0-100.0) fL Sodium (137-145) mmol/L Chloride (98-107) mmol/L BUN (9-20) mg/dL Creatinine (0.66-1.25) mg/dL Glucose (74-99) mg/dL POC Glucose (mg/dL) 111 H 118 H 116 H (75-99) mg/dL 05/03/17 05/03/17 05/03/17 Range/Units 03:07 05:28 05:28 WBC 3.5 L (3.8-10.6) k/uL RBC 4.29 L (4.30-5.90) m/uL MCV 104.9 H (80.0-100.0) fL Sodium 132 L (137-145) mmol/L Chloride 94 L (98-107) mmol/L BUN 8 L (9-20) mg/dL Creatinine 0.50 L (0.66-1.25) mg/dL Glucose 112 H (74-99) mg/dL POC Glucose (mg/dL) 114 H (75-99) mg/dL 05/03/17 05/03/17 Range/Units 05:50 11:45 WBC (3.8-10.6) k/uL RBC (4.30-5.90) m/uL MCV (80.0-100.0) fL Sodium (137-145) mmol/L Chloride (98-107) mmol/L BUN (9-20) mg/dL Creatinine (0.66-1.25) mg/dL Glucose (74-99) mg/dL POC Glucose (mg/dL) 111 H 138 H (75-99) mg/dL Assessment and Plan (1) TIA (transient ischemic attack) Status: Acute (2) Dysphagia Status: Acute (3) Dysphasia Status: Acute (4) Aspiration into airway Status: Acute (5) Multiple myeloma Status: Acute Plan: Patient is known to have multiple comorbidities and is a complicated patient given his overall health status. Patient did have a CT of the brain which noted no acute intracranial hemorrhage or midline shift. Mild to moderate diffuse age-related cerebral atrophy and chronic small vessel ischemic changes with progression from 2012 MRI. Carotid Doppler noted no hemodynamically significant stenosis. Ordered: Laboratory blood work to include: ESRpending CRPpending LRP4 Ab MUSK Ab-pending Acetylcholine receptor binding antibodypending Serum homocystine levelpending EEGpending Lipid panel- elevated HDL Neuro checks as ordered continue 81 mg aspirin daily continue Plavix 75 mg by mouth daily at bedtime Continue Lipitor 40 mg daily at bedtime MRI of the brain with and without contrast- pending Given symptoms upon rising, it is possible that the patient did experience a TIA , rule out myasthenia gravis due to the patient's difficulty with speech and swallowing, limb weakness and elevated CK-MB. His current status in the left lower extremity is almost returned to baseline. Patient still has difficulty with his vocal changes, speech, swallowing difficulties. status: Neurology will continue to follow and provide further updates as needed or warranted. Any questions contact our office. I discussed the patient's pertinent medical information with Dr. Sanchez. He agrees with the plan of care as implemented.
--- NOTE | 2017-05-03 17:50 | PN ---
PROGRESS NOTE DATE OF SERVICE: 05/03/2017 INTERVAL HISTORY: This 72-year-old gentleman who was admitted with numbness and weakness of the left leg with possible acute TIA also had dysphagia which is rather progressive in onset. The patient also had bilateral weakness also. Patient also had features of severe malnutrition as well. Because of multiple risk, the PEG tube placement is contemplated. The patient has significant aspiration risk also. PAST MEDICAL HISTORY: Reviewed. REVIEW OF SYSTEMS: CARDIOVASCULAR: No angina. RESPIRATORY: As mentioned. GI: As mentioned earlier. : No dysuria. NERVOUS SYSTEM: As mentioned earlier. CURRENT MEDICATIONS ARE: Reviewed and include: 1. Ventolin 2 puffs q.i.d. and p.r.n. 2. Xanax. 3. PPN. 4. Aspirin 81 mg daily. 5. Lipitor 40 mg. 6. Heparin 3000 daily. 7. Xopenex. 8. Claritin. 9. Ativan. 10.Metolazone. 11.Protonix. 12.Prazosin. PHYSICAL EXAMINATION: Patient is alert, oriented x2. Pulse 68, blood pressure 160/105, respiration 18 , temperature 97 degrees, pulse ox 97% on room air. HEENT: Conjunctivae normal. Oral mucosa moist. NECK: No jugular venous distention. No carotid bruit. No lymph node enlargement. CARDIOVASCULAR: S1, S2. No S3, no S4. RESPIRATORY: Breath sounds diminished in the bases. Bilateral scattered rhonchi and crackles. ABDOMEN: Soft, scaphoid, nontender. No mass palpable. LEGS: No edema. No swelling. NERVOUS SYSTEM: Diffusely weak and emaciated. palsy present. LAB INVESTIGATIONS: WBC 3.2, sodium 132. ASSESSMENT: 1. Numbness and weakness of the left side possible acute transient ischemic attack. 2. Dysphagia with vocal cord as well as paralysis, rule out bulbar palsy. 3. Dysphagia with aspiration risk. 4. Right lower limb atelectasis. 5. Hypertension. 6. Significant weakness with recent weakness. 7. Severe protein calorie malnutrition, present on admission. 8. Gait dysfunction. 9. Leukopenia. 10.Increased MCV. 11.Hyponatremia. 12.History of rheumatoid arthritis. RECOMMENDATIONS AND DISCUSSION: I recommend to continue current management and continue with antiplatelet agents. Otherwise strict N.P.O., aspiration precautions. Consult GI for PEG tube placement. Overall prognosis is extremely guarded. The patient will require further neurologic evaluation also. Possibly tertiary care evaluation because of multiple complex medical issues. I would recommend a gastroenterology consultation as well. Currently the patient is severe malnutrition and patient will need PEG tube for nutrition management also. The prognosis guarded. Further recommendations to follow. Discussed with the family at length who understands and agrees. KLAUS / OJN: [id number] / MTDD
[2017-05-03] MEDS: FAT EMULSION 20% 250 ML in EMPTY BAG 1 BAG IV SCH (17:52)
[2017-05-03 17:59] LABS: Glucose,Whole Blood 133 mg/dL (75-99)
[2017-05-03] MEDS ORDERED: ARTIFICIAL TEARS-HYPROMELLOSE DROPS 15 ML BTL BOTH EYES PRN (20:56)
[2017-05-03] MEDS: ASPIRIN 81 MG PO SCH (21:04)
[2017-05-03] MEDS: MELATONIN 3 MG TABLET PO SCH (21:05)
[2017-05-03] MEDS: ATORVASTATIN 40 MG TAB PO SCH (21:05)
[2017-05-03] MEDS: PRAZOSIN 1 MG CAP PO SCH (21:05)
[2017-05-03] MEDS: LORATADINE-PSEUDOEPH 5-120 MG 1 EACH TAB.ER.12H PO SCH (21:05)
[2017-05-03 23:55] LABS: Glucose,Whole Blood 120 mg/dL (75-99)
--- NOTE | 2017-05-04 02:01 | P.CONS ---
History of Present Illness - Reason for Consult Consult date: 05/02/17 Dysphagia - History of Present Illness The patient is a 72-year-old male who was admitted to the hospital because of multiple issues including left leg numbness and tingling, dysphagia and aspiration. I'm asked to see him regarding dysphagia and weight loss. He had a video fluoroscopy after admission that showed perry aspiration. There is also significant change in his voice. The patient has multiple medical problems including CVA/TIA, gastroesophageal reflux disease, rheumatoid arthritis, multiple myeloma as well as weakness of left vocal cord and palate. He underwent Field procedure. Also had prior appendectomy. Review of Systems 12-point review of systems is otherwise negative except as mentioned above. Past Medical History Past Medical History: Blood Disorder, CVA/TIA, GERD/Reflux, Rheumatoid Arthritis (RA) Additional Past Medical History / Comment(s): DYSPHAGIA, ASPIRATION PRECAUTIONS , 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 Gaping esophagus, barretts esophagus. EGD. Multiple myeloma History of Any Multi-Drug Resistant Organisms: None Reported Past Surgical History: Appendectomy, Hernia Repair, Orthopedic Surgery, Tonsillectomy Additional Past Surgical History / Comment(s): LEFT BUNION SX, HEMMORIODECTOMY, (R) ring finger sx. Nasal reduction Additional Past Anesthesia/Blood Transfusion Reaction / Comm: PARALYZED VOCAL CHORDS Past Psychological History: No Psychological Hx Reported Smoking Status: Former smoker Past Alcohol Use History: Occasional Past Drug Use History: None Reported Medications and Allergies Home Medications Medication Instructions Recorded Confirmed Type Omeprazole [Omeprazole] 20 mg PO QAM 07/31/14 05/01/17 History Prazosin [Minipress] 1 mg PO HS 07/31/14 05/01/17 History Simvastatin [Simvastatin] 10 mg PO HS 07/31/14 05/01/17 History Aspirin 81 mg PO HS 08/03/14 05/01/17 History Albuterol Inhaler [Ventolin Hfa 2 puff INHALATION Q6HR PRN 05/01/17 05/01/17 History Inhaler] Indacaterol/Glycopyrrolate 05/01/17 History [Utibron Neohaler 27.5-15.6 Mcg] Ipratropium/Albuterol Sulfate 1 puff INHALATION RT-QID 05/01/17 05/01/17 History [Combivent Respimat Inhaler] Loratadine-Pseudoeph 10-240 mg 1 tab PO HS 05/01/17 05/01/17 History [Claritin-D 24 Hr] [place]-3 Fatty Acids [[place]-3] 1,000 mg PO HS 05/01/17 05/01/17 History guaiFENesin [Mucinex] 600 mg PO BID 05/01/17 05/01/17 History Allergies Allergy/AdvReac Type Severity Reaction Status Date / Time Sulfa (Sulfonamide Allergy Rash/Hives Verified 05/01/17 11:20 Antibiotics) Physical Exam Vitals: Vital Signs Temp Pulse Pulse Resp BP Pulse Ox 05/02/17 16:00 97.8 F 72 18 158/92 95 05/02/17 15:44 74 18 05/02/17 13:28 74 05/02/17 13:20 74 05/02/17 11:50 97.0 F L 74 18 162/89 97 05/02/17 11:49 75 18 05/02/17 08:00 96.7 F L 70 75 18 154/98 95 05/02/17 07:49 68 05/02/17 03:53 65 18 05/02/17 03:48 98.0 F 65 18 167/85 94 L 05/02/17 00:00 97.8 F 76 18 144/84 97 05/01/17 21:12 77 05/01/17 21:02 77 05/01/17 20:00 97.7 F 78 19 160/92 96 Intake and Output 05/02/17 05/02/17 05/02/17 06:59 14:59 22:59 Intake Total 760 720 Output Total 600 Balance 160 720 Intake: Intake, IV Titration 760 720 Amount ACETAMINOPHEN IV (For NPO 400 ) 1,000 mg In Empty Bag 1 bag @ 400 mls/hr IVPB Q6HR PRN Rx#:[id number] D5w with KCl 20 Meq/l 1, 360 720 000 ml @ 60 mls/hr IV . [id number] MARILYN Rx#:[id number] Output: Urine 600 Other: Voiding Method Toilet Toilet Toilet Urinal Urinal Urinal # Voids 1 1 Weight 54.6 kg 54.6 kg Patient Weight 10/08/17 06:59 Weight 54.6 kg General: Appeared stated age, chronically ill, very pleasant and in no acute distress Head and neck: Normocephalic and atraumatic, conjunctivae pink and sclerae not icteric, no masses and an echo tracheal shifts Lungs: Decreased breath sounds and end-expiratory rhonchi Heart: Regular, no abnormal sounds, murmurs, gallops or friction rubs Abdomen: Scaphoid, no masses or organomegalies or tenderness. Bowel sounds present Extremities: No clubbing, cyanosis or edema Neurologic: Alert and oriented 3. Cranial nerves grossly intact. No gross sensory or motor abnormalities Results CBC & Chem 7: 05/03/17 05:28 05/03/17 05:28 Labs: Abnormal Lab Results - Last 24 Hours (Table) 05/02/17 05/02/17 05/02/17 Range/Units 05:27 05:27 11:33 WBC 2.3 L (3.8-10.6) k/uL RBC 3.94 L (4.30-5.90) m/uL MCV 105.1 H (80.0-100.0) fL Neutrophils # 1.1 L (1.3-7.7) k/uL Lymphocytes # 0.8 L (1.0-4.8) k/uL Sodium 131 L (137-145) mmol/L Chloride 94 L (98-107) mmol/L Carbon Dioxide 31 H (22-30) mmol/L BUN 8 L (9-20) mg/dL Creatinine 0.48 L (0.66-1.25) mg/dL Glucose (74-99) mg/dL POC Glucose (mg/dL) 112 H (75-99) mg/dL HDL Cholesterol 62 H (40-60) mg/dL 05/02/17 05/02/17 Range/Units 14:52 16:54 WBC (3.8-10.6) k/uL RBC (4.30-5.90) m/uL MCV (80.0-100.0) fL Neutrophils # (1.3-7.7) k/uL Lymphocytes # (1.0-4.8) k/uL Sodium 132 L (137-145) mmol/L Chloride 92 L (98-107) mmol/L Carbon Dioxide 31 H (22-30) mmol/L BUN 6 L (9-20) mg/dL Creatinine 0.49 L (0.66-1.25) mg/dL Glucose 111 H (74-99) mg/dL POC Glucose (mg/dL) 111 H (75-99) mg/dL HDL Cholesterol (40-60) mg/dL Assessment and Plan Plan: This 72-year-old male with esophageal dysphagia with voice changes, aspiration and significant weight loss. The possibility of a neurologic disorder is being considered. Meanwhile, because of the significant weight loss, I agree with need of nutritional support and it seems that the patient and the family like to see this happen. I will consider placing a gastrostomy feeding tube on Thursday after I discuss with you.
[2017-05-04] MEDS: 1: MVI, ADULT NO.4 WITH VIT K 10 ML, TRACE (CONC-1ML/DOSE) 1 ML in AMINO ACID 4.25%-D10W IV SCH ×9 (02:09→23:55)
[2017-05-04] MEDS: INSULIN LISPRO (humaLOG) 300 UNIT/3 ML VIAL SQ SCH ×3 (06:06→17:59)
[2017-05-04 06:07] LABS: Glucose,Whole Blood 99 mg/dL (75-99)
[2017-05-04 06:36] LABS: Basophils % (A) 0 %; CH 34.6; CHCM 32.8; Eosinophils # (A) 0.1 k/uL (0-0.7); Eosinophils % (A) 4 %; HCT 43.9 % (39.0-53.0); HGB 14.2 gm/dL (13.0-17.5); Luc # (Auto) 0.08; Luc % (Auto) 3; Lymphocytes # (A) 0.8 k/uL (1.0-4.8); Lymphocytes % (A) 25 %; MCH 34.2 pg (25.0-35.0); MCHC 32.2 g/dL (31.0-37.0); MCV 106.1 fL (80.0-100.0); Macrocytosis Moderate; Mean Platelet Volume 7.1; Monocytes # (A) 0.2 k/uL (0-1.0); Monocytes % (A) 6 %; Neutrophils # (A) 1.8 k/uL (1.3-7.7); Neutrophils % (A) 62 %; RBC 4.14 m/uL (4.30-5.90); RDW 13.3 % (11.5-15.5); WBC (Perox) 3.08
[2017-05-04 06:55] LABS: Anion Gap 6 mmol/L; Blood Urea Nitrogen 14 mg/dL (9-20); Calcium 9.3 mg/dL (8.4-10.2); Carbon Dioxide 29 mmol/L (22-30); Chloride 97 mmol/L (98-107); Glucose 101 mg/dL (74-99); Magnesium 1.9 mg/dL (1.6-2.3); Non-African American GFR(MDRD) >60 (>60 ml/min/1.73 sqM); Phosphorus 4.6 mg/dL (2.5-4.5); Potassium 4.5 mmol/L (3.5-5.1); Sodium 132 mmol/L (137-145)
[2017-05-04] MEDS: LEVALBUTEROL NEB 1.25 MG/3 ML AMP INHALATION SCH ×3 (07:10→20:20)
[2017-05-04] MEDS: GLYCOPYRROLATE INHALATION SCH ×2 (07:59→20:29)
[2017-05-04] MEDS: INDACATEROL INHALATION SCH ×2 (07:59→20:29)
[2017-05-04] MEDS: HEPARIN SODIUM,PORCINE 5,000 UNIT/ML 1 ML VIAL SQ SCH ×2 (08:12→21:24)
[2017-05-04] MEDS: guaiFENesin 600 MG TABLET.ER PO SCH ×2 (08:12→21:57)
[2017-05-04] MEDS: PANTOPRAZOLE 40 MG/10 ML VIAL IVP SCH (08:52)
[2017-05-04] MEDS: OXYMETAZOLINE 0.05% NASL SPRAY 1 SPRAY BOTTLE NASAL SCH ×2 (08:52→21:25)
--- NOTE | 2017-05-04 11:35 | MR ---
EXAMINATION TYPE: MR brain wo/w con DATE OF EXAM: 05/04/2017 COMPARISON: 10/27/2011 HISTORY: CVA TECHNIQUE: Multiplanar, multisequence images of the brain and brainstem is performed without and with IV contras t, utilizing 5.5 mL intravenous Gadavist . FINDINGS: Diffusion weighted images demonstrate no evidence of a recent infarct or other diffusion ab normality. Moderate generalized degenerative change. Diffuse and numerous focal areas of abnormal signal the whi te matter are nonspecific in an noted bilaterally. All lesions measuring less than 5 mm. No enhancing lesions. Changes of chronic sinusitis are noted. There is a 1 cm area signal along the left frontal bone super ior to left orbital rim. This likely represents sinus disease within the frontal sinus. No enhancing mass. No midline shift. No cerebellopontine angle mass. Craniocervical junction maintain ed. Sella turcica is normal. IMPRESSION: 1. No acute process 2. Degenerative and nonspecific white matter changes. Remote microvascular ischemia favored. 3. Chronic sinusitis.
[2017-05-04] MEDS: hydrALAZINE HCL 20 MG/ML 1 ML VIAL IVP PRN (12:39)
[2017-05-04 13:26] LABS: Glucose,Whole Blood 119 mg/dL (75-99)
[2017-05-04] MEDS ORDERED: IV FLUID CONTINUATION 1,000 ML IV ONE (14:21)
[2017-05-04] MEDS ORDERED: PROPOFOL 10 MG/ML 20 ML VIAL IV ONE (14:31)
[2017-05-04] MEDS ORDERED: SODIUM CHLORIDE 0.9% 1,000 ML IV ONE (14:56)
--- NOTE | 2017-05-04 15:23 | P.PCN ---
Date of Procedure: 05/04/17 Procedure(s) Performed: Procedure: Esophagogastroduodenoscopy and placement of gastrostomy feeding tube. Preoperative diagnosis: Pre-esophageal dysphagia, aspiration and weight loss. Postoperative diagnosis: Successful placement of 20-[place] [employer] scientific gastrostomy feeding tube placement. Preparation sedation: Was provided by anesthesia. Brief clinical history: The patient is a 72-year-old male who was admitted to the hospital because of multiple issues including left leg numbness and tingling , dysphagia and aspiration. I was asked to see him regarding dysphagia and weight loss. He had a video fluoroscopy after admission that showed perry aspiration. There is also significant change in his voice. Because of his significant weight loss and aspiration and while his neurologic issues are investigated further, this evaluation was requested to rule out primary GI pathology and to place a gastrostomy feeding tube for nutritional support. The details are summarized in the history and physical and dictated consultation and progress notes. Procedure with the patient in the supine position and after informed consent and adequate sedation, I passed the Olympus-GIF 160 video upper endoscope through the cricopharyngeus down the esophagus. No obvious abnormalities were noted in the esophagus or any physical hindrance to the advancement of the endoscope through the cricopharyngeus. There was some asymetry in the hypopharynx and the arytenoid the area and the vocal cords but no masses seen. The endoscope was then passed into the stomach which was insufflated with air and inspected in detail including the retroflex view in the cardia and finally the endoscope was passed through the pylorus into the duodenum. There was a paraesophageal hiatal hernia but otherwise no obvious abnormalities or obstruction. At this point, we proceeded to cleansed the skin with Betadine, 1% Xylocaine was used for local anesthesia and a small incision was made using #11 blade. The needle trocar was then passed through the incision and once in the gastric lumen it was captured with the snare. A guidewire was then passed through the needle and itself captured with the snare and was withdrawn by withdrawing the endoscope. A 20-[place] [employer] scientific gastrostomy feeding tube was then passed over the guidewire through the mouth down the esophagus into the stomach and once it emerged through the abdominal incision it was pulled into position. I confirm the position of the tube bypassing the endoscope back into the stomach over the guidewire. The patient tolerated the procedure well. Plan: The patient was reassured. Will consult the dietitian regarding prescribing and advancing his tube feedings. Further plans based on his course.
--- NOTE | 2017-05-04 15:56 | P.PN ---
Subjective Progress Note Date: 05/04/17 Principal diagnosis: TIA Neurology is following on a 72-year-old male past medical history of CVA, TIA, GERD, history of rheumatoid arthritis, dysphagia, aspiration, history of multiple myeloma, history of appendectomy and was complaining of left leg numbness and tingling as well as left-sided weakness in the left lower extremity with ambulation. Initially when the patient began ambulating yesterday, the patient was unable to utilize the left lower extremity and experienced what appears to be left-sided neglect in the left lower extremity. At home he began reportedly dragging his left lower extremity while ambulating. Patient also complained of left focal weakness in the left upper palate. Patient has a past surgery to the throat with placement of a Field implant. Patient reports he has had intermittent progressive dysphagia, dysphasia and aspiration at home. Patient was sent for a swallow study which showed perry aspiration loss of normal pharyngeal propagation. Patient was also losing weight patient has lost partially 50 pounds according to the ED note however that does not provide a timeframe. No history of fever, rigors or chills. No history of headache, loss of consciousness or seizure. Chest x-ray showed possible atelectasis in the right lower lobe possibly secondary to aspiration. Patient does have generalized weakness. Rheumatology has evaluated the patient for lupus. He does have a known history of rheumatological arthritis. Interval update: May 04, 2017 Patient is AOx3, resting in bed in no acute distress. Patient has family at the bedside. He states that the dyspahsia and dysphagia have existed for several years in this state. He has actively worked with Dr Cullen. The myasthenia gravis panel has returned negative so far and based on testing it appears that this is mechanical. May 03, 2017 Patient was AOx3, resting in bed and in no acute distress. He states that dysphagia and dysphasia has decreased mildly since yesterday. Patient is inquiring about possible caloric management and supplementation. May 02, 2017 On contact, patient was alert and oriented 3. He still complained of ongoing dysphagia but stated that his left lower extremity was almost back to baseline. Patient was semi fowlers in bed resting in no acute distress. Previously, the patient stated he had returned to baseline however he clarified stating that he was actually approximately 80% return to baseline yesterday. Patient denied vision changes, dizziness, new numbness and tingling, confusion. Review of laboratory blood work noted hyponatremia and elevated CK-MB. Objective - Vital Signs Vital signs: Vital Signs Temp 96.5 F L 05/04/17 15:43 Pulse 72 05/04/17 15:43 Resp 16 05/04/17 15:43 BP 182/105 05/04/17 15:43 Pulse Ox 98 05/04/17 15:43 Intake & Output 05/03/17 05/04/17 05/04/17 18:59 06:59 18:59 Intake Total 1000 1380 50 Output Total 250 Balance 750 1380 50 Weight 53.9 kg 53.9 kg Intake: IV 50 Intake, IV Titration 1000 1380 Amount Amino Acid 4.25%-D10w+ 1000 Lytes*E* 1,000 ml @ 90 mls/hr IV .BY DURATION MARILYN Rx#:[id number] Fat Emulsion 20% 250 ml 189 In Empty Bag 1 bag @ 21 mls/hr IV DAILY@1800 MARILYN Rx#:[id number] Mvi, Adult No.4 with Vit 1191 K 10 ml Trace (Conc-1Ml/ Dose) 1 ml In Amino Acid 4.25%-D10w+Lytes*E* 1,000 ml @ 90 mls/hr IV .BY DURATION MARILYN Rx#: [id number] Output: Urine 250 Other: Voiding Method Toilet Toilet Urinal Urinal # Voids 1 1 - Exam Constitutional: AOx3, cooperative HEENT: NC/AT, no facial asymmetry is seen. Throat: Supple, no masses Respiratory: No increased work of breathing Cardiac: Regular rate and Rhythm GI: non tender, non distended Musculoskeletal: [place] strengths are equal bilaterally 4/5, Lower extremity strengths are equal bilaterally at 4/5. Neurological: CN II-XII in tact, patient was AOx3, speech and language are normal the patient has vocal changes and pitch changes that are altered from baseline, unilateralizing weakness in the left lower extremity, no seizure activity note on physical exam. Sensation was normal. Integementary: no rash, no erythema Psychiatric: mood and affect appropriate - Labs CBC & Chem 7: 05/04/17 05:26 05/04/17 05:26 Labs: Abnormal Lab Results - Last 24 Hours (Table) 05/03/17 05/03/17 05/04/17 Range/Units 17:57 23:52 05:26 WBC 3.0 L (3.8-10.6) k/uL RBC 4.14 L (4.30-5.90) m/uL MCV 106.1 H (80.0-100.0) fL Lymphocytes # 0.8 L (1.0-4.8) k/uL Sodium (137-145) mmol/L Chloride (98-107) mmol/L Creatinine (0.66-1.25) mg/dL Glucose (74-99) mg/dL POC Glucose (mg/dL) 133 H 120 H (75-99) mg/dL Phosphorus (2.5-4.5) mg/dL 05/04/17 05/04/17 Range/Units 05:26 13:13 WBC (3.8-10.6) k/uL RBC (4.30-5.90) m/uL MCV (80.0-100.0) fL Lymphocytes # (1.0-4.8) k/uL Sodium 132 L (137-145) mmol/L Chloride 97 L (98-107) mmol/L Creatinine 0.47 L (0.66-1.25) mg/dL Glucose 101 H (74-99) mg/dL POC Glucose (mg/dL) 119 H (75-99) mg/dL Phosphorus 4.6 H (2.5-4.5) mg/dL Assessment and Plan (1) TIA (transient ischemic attack) Status: Acute (2) Dysphagia Status: Acute (3) Dysphasia Status: Acute (4) Aspiration into airway Status: Acute (5) Multiple myeloma Status: Acute Plan: Patient is known to have multiple comorbidities and is a complicated patient given his overall health status. Patient did have a CT of the brain which noted no acute intracranial hemorrhage or midline shift. Mild to moderate diffuse age-related cerebral atrophy and chronic small vessel ischemic changes with progression from 2012 MRI. Carotid Doppler noted no hemodynamically significant stenosis. Ordered: Laboratory blood work to include: ESRpending CRPnormal MUSK Ab-pending Acetylcholine receptor binding antibody- normal Serum homocystine levelnormal EEGtaken, report yet to be filed Lipid panel- elevated HDL Neuro checks as ordered continue 81 mg aspirin daily continue Plavix 75 mg by mouth daily at bedtime Continue Lipitor 40 mg daily at bedtime MRI of the brain with and without contrast- white matter changes, suspect microvascular ischemia His current status in the left lower extremity is almost returned to baseline. Patient still has difficulty with his vocal changes, speech, swallowing difficulties. myasthenia gravis panel appears to be negative, recommend consult ear nose and throat, Dr. Schaefer. Patient sees a nose and throat physician noted for his condition. Patient did have a PEG tube placed for feeding today. status: Neurology will follow on as-needed basis. Any questions contact our office. Once the patient is discharged, advised the patient to follow up with our office within 10 days. I discussed the patient's pertinent medical information with Dr. Sanchez. He agrees with the plan of care as implemented.
--- NOTE | 2017-05-04 16:55 | P.PN ---
Subjective Progress Note Date: 05/04/17 Progress note being dictated for Dr. Bernstein. Interval history: This a 72-year-old gentleman admitted with left leg numbness, possible acute TIA in a patient with history of dysphagia, Field implant and multiple other medical issues. Presented with severe dysphagia and scheduled for PEG tube placement today with GI. Ambulating to and from bathroom , weak. MRI reporting non acute, degenerative and nonspecific white matter changes, remote microvascular ischemia. Patient states left-lower extremity weakness has returned to baseline. Objective - Vital Signs Vital signs: Vital Signs Temp 96.5 F L 05/04/17 15:43 Pulse 72 05/04/17 15:43 Resp 16 05/04/17 15:43 BP 182/105 05/04/17 15:43 Pulse Ox 98 05/04/17 15:43 Intake & Output 05/03/17 05/04/17 05/04/17 18:59 06:59 18:59 Intake Total 1000 1380 50 Output Total 250 Balance 750 1380 50 Weight 53.9 kg 53.9 kg Intake: IV 50 Intake, IV Titration 1000 1380 Amount Amino Acid 4.25%-D10w+ 1000 Lytes*E* 1,000 ml @ 90 mls/hr IV .BY DURATION MARILYN Rx#:[id number] Fat Emulsion 20% 250 ml 189 In Empty Bag 1 bag @ 21 mls/hr IV DAILY@1800 MARILYN Rx#:[id number] Mvi, Adult No.4 with Vit 1191 K 10 ml Trace (Conc-1Ml/ Dose) 1 ml In Amino Acid 4.25%-D10w+Lytes*E* 1,000 ml @ 90 mls/hr IV .BY DURATION MARILYN Rx#: [id number] Output: Urine 250 Other: Voiding Method Toilet Toilet Urinal Urinal # Voids 1 1 - Exam PHYSICAL EXAM: VITAL SIGNS: As above GENERAL: Sitting up in bed, no acute distress, cachectic, BMI 17.1 HEENT: Conjunctivae normal. eyes normal. NECK: No JVD. No thyroid enlargement. No LNs CARDIOVASCULAR: S1, S2 muffled. No murmur RESPIRATION: Breath sounds diminished in the bases. Scattered rhonchi and crackles. ABDOMEN: Soft, nontender . No guarding. no masses palpable.Bowel sounds heard. LEGS: No edema. no swelling PSYCHIATRY: Alert and oriented -3, mood and affect normal. NERVOUS SYSTEM: Cranial N 2-12 grossly normal. Moves all 4 limbs. Diffuse weakness, No focal deficits. No sensory deficit. Skin: no ulcer no rash - Labs CBC & Chem 7: 05/04/17 05:26 05/04/17 05:26 Labs: Abnormal Lab Results - Last 24 Hours (Table) 05/03/17 05/03/17 05/04/17 Range/Units 17:57 23:52 05:26 WBC 3.0 L (3.8-10.6) k/uL RBC 4.14 L (4.30-5.90) m/uL MCV 106.1 H (80.0-100.0) fL Lymphocytes # 0.8 L (1.0-4.8) k/uL Sodium (137-145) mmol/L Chloride (98-107) mmol/L Creatinine (0.66-1.25) mg/dL Glucose (74-99) mg/dL POC Glucose (mg/dL) 133 H 120 H (75-99) mg/dL Phosphorus (2.5-4.5) mg/dL 05/04/17 05/04/17 Range/Units 05:26 13:13 WBC (3.8-10.6) k/uL RBC (4.30-5.90) m/uL MCV (80.0-100.0) fL Lymphocytes # (1.0-4.8) k/uL Sodium 132 L (137-145) mmol/L Chloride 97 L (98-107) mmol/L Creatinine 0.47 L (0.66-1.25) mg/dL Glucose 101 H (74-99) mg/dL POC Glucose (mg/dL) 119 H (75-99) mg/dL Phosphorus 4.6 H (2.5-4.5) mg/dL Assessment and Plan Plan: 1. Numbness, weakness of the left side, possible acute TIA. 2. [ Dysphasia with vocal cord paralysis, rule out bulbar palsy, history of Field implant]. 3. [ Dysphagia with aspiration risk, PEG tube placement pending]. 4. [ Severe protein calorie malnutrition, BMI 17.1, present on admission]. 5. [ Gait dysfunction, significant weakness]. 6. [ Rheumatoid arthritis history]. 7. Hypertension Plan: Continue on current medication regime ,monitoring and symptomatic treatment. Strict aspiration precautions.NPO, awaiting peg tube placement. Recommend further neurological evaluation and possibly a tertiary center given multiple complex medical issues. Discussed at length with and patient at bedside; verbalized understanding and agreement with. Case management to assist with OP referral. The impression and plan of care has been dictated as directed as a scribe. : I performed a H&P examination of this patient and discussed the same with the dictator. I agree with the dictator's note. Any additional findings/opinions will be noted.
[2017-05-04] MEDS: FAT EMULSION 20% 250 ML in EMPTY BAG 1 BAG IV SCH (17:00)
[2017-05-04] MEDS ORDERED: ACETAMINOPHEN IV (For NPO) 1,000 MG in EMPTY BAG 1 BAG IVPB PRN (17:39)
[2017-05-04 18:02] LABS: Glucose,Whole Blood 118 mg/dL (75-99)
[2017-05-04] MEDS: amLODIPine 2.5 MG TAB PEG/G-TUBE SCH (18:27)
[2017-05-04] MEDS: ASPIRIN 81 MG PO SCH (21:24)
[2017-05-04] MEDS: ATORVASTATIN 40 MG TAB PO SCH (21:24)
[2017-05-04] MEDS: PRAZOSIN 1 MG CAP PO SCH (21:25)
[2017-05-04] MEDS: LORATADINE-PSEUDOEPH 5-120 MG 1 EACH TAB.ER.12H PO SCH (21:25)
[2017-05-04] MEDS: MELATONIN 3 MG TABLET PO SCH (21:25)
[2017-05-04] MEDS ORDERED: SCOPOLAMINE 1.5MG/72HR PATCH TRANSDERM SCH (23:00)
[2017-05-05 00:09] LABS: Glucose,Whole Blood 114 mg/dL (75-99)
[2017-05-05] MEDS: INSULIN LISPRO (humaLOG) 300 UNIT/3 ML VIAL SQ SCH ×4 (01:24→17:23)
--- NOTE | 2017-05-05 05:15 | EEG ---
ELECTROENCEPHALOGRAM REPORT DATE OF SERVICE: 05/04/2017. REASON FOR TESTING: Transient ischemic attack. DESCRIPTION OF THE RECORDING: This EEG was performed using a 21 channel digital electroencephalograph, following international 10-20 system. DESCRIPTION OF THE RECORDING: From the beginning of the tracing, and with patient's eyes closed, the background rhythm was mostly consisting of 8 to 9 Hz alpha frequency in the posterior occipital leads. No obvious asymmetry is seen. Photic stimulation was performed with a good driving response seen. No pathological waves were elicited. Hyperventilation was not performed. Occasional muscle artifacts and movement artifacts are seen. No epileptiform discharges were seen. The patient remains awake throughout the tracing. His EKG lead showed a regular rate and rhythm. INTERPRETATION: This awake EEG can be considered within normal limits. There is no asymmetry seen. No epileptiform discharges were noticed. The absence of epileptiform discharges does not rule out the diagnosis of epilepsy, therefore clinical correlation is recommended. MMGEORGE / OJN: [id number] /
[2017-05-05 05:49] LABS: Glucose,Whole Blood 104 mg/dL (75-99)
[2017-05-05 06:16] LABS: Basophils % (A) 0 %; CHCM 33.8; Eosinophils # (A) 0.1 k/uL (0-0.7); Eosinophils % (A) 1 %; HCT 39.9 % (39.0-53.0); HDW 2.16; HGB 12.8 gm/dL (13.0-17.5); Luc # (Auto) 0.05; Luc % (Auto) 1; Lymphocytes # (A) 0.6 k/uL (1.0-4.8); Lymphocytes % (A) 10 %; MCH 33.5 pg (25.0-35.0); MCHC 32.2 g/dL (31.0-37.0); MCV 104.3 fL (80.0-100.0); Macrocytosis Slight; Mean Platelet Volume 7.7; Monocytes # (A) 0.2 k/uL (0-1.0); Monocytes % (A) 3 %; Neutrophils # (A) 5.1 k/uL (1.3-7.7); Neutrophils % (A) 85 %; RBC 3.83 m/uL (4.30-5.90); RDW 14.1 % (11.5-15.5); WBC (Perox) 6.13
[2017-05-05 06:25] LABS: Anion Gap 7 mmol/L; Blood Urea Nitrogen 17 mg/dL (9-20); Carbon Dioxide 27 mmol/L (22-30); Chloride 95 mmol/L (98-107); Glucose 110 mg/dL (74-99); Magnesium 1.9 mg/dL (1.6-2.3); Non-African American GFR(MDRD) >60 (>60 ml/min/1.73 sqM); Phosphorus 4.4 mg/dL (2.5-4.5); Potassium 4.5 mmol/L (3.5-5.1); Sodium 129 mmol/L (137-145)
[2017-05-05] MEDS: GLYCOPYRROLATE INHALATION SCH ×2 (07:35→20:43)
[2017-05-05] MEDS: INDACATEROL INHALATION SCH ×2 (07:35→20:43)
[2017-05-05] MEDS: LEVALBUTEROL NEB 1.25 MG/3 ML AMP INHALATION SCH ×3 (08:47→20:42)
[2017-05-05] MEDS: amLODIPine 2.5 MG TAB PEG/G-TUBE SCH (08:50)
[2017-05-05] MEDS: OXYMETAZOLINE 0.05% NASL SPRAY 1 SPRAY BOTTLE NASAL SCH ×2 (08:50→21:22)
[2017-05-05] MEDS: PANTOPRAZOLE 40 MG/10 ML VIAL IVP SCH (08:50)
[2017-05-05] MEDS: HEPARIN SODIUM,PORCINE 5,000 UNIT/ML 1 ML VIAL SQ SCH ×2 (08:50→21:22)
--- NOTE | 2017-05-05 10:04 | P.PN ---
Subjective Progress Note Date: 05/05/17 Principal diagnosis: dysphagia S/P PEG. No complaints. TPN being weaned. Objective - Vital Signs Vital signs: Vital Signs Temp 96.1 F L 05/05/17 04:00 Pulse 94 05/05/17 09:02 Resp 18 05/05/17 04:00 BP 150/89 05/05/17 04:00 Pulse Ox 94 L 05/05/17 08:50 Intake & Output 05/04/17 05/05/17 05/05/17 18:59 06:59 18:59 Intake Total 1050 0 Output Total 0 Balance 1050 0 Weight 53.9 kg 54.7 kg Intake: IV 50 Intake, IV Titration 1000 Amount Amino Acid 4.25%-D10w+ 1000 Lytes*E* 1,000 ml @ 90 mls/hr IV .BY DURATION [facility]ILY[facility] Rx#:[id number] Oral 0 Output: Urine 0 Other: Voiding Method Toilet Urinal # Voids 1 1 0 - Constitutional General appearance: Present: no acute distress - EENT Eyes: Present: normal appearance ENT: Present: normal oropharynx - Neck Neck: Present: normal ROM - Respiratory Respiratory: bilateral: CTA - Cardiovascular Heart sounds: normal: S1, S2 - Gastrointestinal Gastrointestinal Comment(s): peg without erythema bleeding or drainage. BS positive. General gastrointestinal: Present: soft - Integumentary Integumentary: Present: normal turgor - Psychiatric Psychiatric: Present: A&O x's 3 - Labs CBC & Chem 7: 05/05/17 05:22 05/05/17 05:22 Labs: Abnormal Lab Results - Last 24 Hours (Table) 05/04/17 05/04/17 05/04/17 Range/Units 13:13 17:58 23:56 RBC (4.30-5.90) m/uL Hgb (13.0-17.5) gm/dL MCV (80.0-100.0) fL Lymphocytes # (1.0-4.8) k/uL Sodium (137-145) mmol/L Chloride (98-107) mmol/L Creatinine (0.66-1.25) mg/dL Glucose (74-99) mg/dL POC Glucose (mg/dL) 119 H 118 H 114 H (75-99) mg/dL 05/05/17 05/05/17 05/05/17 Range/Units 05:22 05:22 05:47 RBC 3.83 L (4.30-5.90) m/uL Hgb 12.8 L (13.0-17.5) gm/dL MCV 104.3 H (80.0-100.0) fL Lymphocytes # 0.6 L (1.0-4.8) k/uL Sodium 129 L (137-145) mmol/L Chloride 95 L (98-107) mmol/L Creatinine 0.40 L (0.66-1.25) mg/dL Glucose 110 H (74-99) mg/dL POC Glucose (mg/dL) 104 H (75-99) mg/dL Assessment and Plan Plan: Impression: 1. Preesophageal dysphagia with weight loss aspiration status post insertion of gastrostomy feeding tube. 2. Left-sided weakness possible acute TIA possible bulbar palsy history of Field implant. Recommendations: 1. Wean TPN. Aspiration precautions. GI prophylaxis. Start tube feeds 10 mL an hour and titrate up 10 mL every hour until goal is reached. Assessment and plan a care discussed with Dr. Dill
[2017-05-05] MEDS: 1: MVI, ADULT NO.4 WITH VIT K 10 ML, TRACE (CONC-1ML/DOSE) 1 ML in AMINO ACID 4.25%-D10W IV SCH ×6 (10:49→23:13)
[2017-05-05 11:23] LABS: Glucose,Whole Blood 100 mg/dL (75-99)
[2017-05-05 16:32] LABS: Glucose,Whole Blood 93 mg/dL (75-99)
[2017-05-05] MEDS: FAT EMULSION 20% 250 ML in EMPTY BAG 1 BAG IV SCH (17:23)
[2017-05-05] MEDS: MELATONIN 3 MG TABLET PO SCH (21:22)
[2017-05-05] MEDS: PRAZOSIN 1 MG CAP PO SCH (21:23)
[2017-05-05] MEDS: ATORVASTATIN 40 MG TAB PO SCH (21:23)
[2017-05-05] MEDS: LORATADINE-PSEUDOEPH 5-120 MG 1 EACH TAB.ER.12H PO SCH (21:23)
[2017-05-05] MEDS: ASPIRIN 81 MG PO SCH (21:23)
[2017-05-05 21:47] VITALS: RESP 16
[2017-05-05 23:57] LABS: Glucose,Whole Blood 105 mg/dL (75-99)
[2017-05-06] MEDS: INSULIN LISPRO (humaLOG) 300 UNIT/3 ML VIAL SQ SCH ×3 (01:24→12:02)
[2017-05-06 05:54] LABS: Glucose,Whole Blood 115 mg/dL (75-99)
[2017-05-06 05:56] LABS: Basophils % (A) 0 %; CH 34.8; CHCM 33.2; Eosinophils # (A) 0.1 k/uL (0-0.7); Eosinophils % (A) 3 %; HCT 39.7 % (39.0-53.0); HDW 2.14; Luc # (Auto) 0.09; Luc % (Auto) 2; Lymphocytes # (A) 0.8 k/uL (1.0-4.8); Lymphocytes % (A) 22 %; MCH 34.3 pg (25.0-35.0); MCHC 32.6 g/dL (31.0-37.0); MCV 105.3 fL (80.0-100.0); Macrocytosis Slight; Mean Platelet Volume 7.4; Monocytes # (A) 0.2 k/uL (0-1.0); Monocytes % (A) 6 %; Neutrophils # (A) 2.4 k/uL (1.3-7.7); Neutrophils % (A) 67 %; RBC 3.77 m/uL (4.30-5.90); RDW 13.4 % (11.5-15.5); WBC 3.5 k/uL (3.8-10.6); WBC (Perox) 3.65
[2017-05-06 06:03] LABS: Anion Gap 6 mmol/L; Blood Urea Nitrogen 14 mg/dL (9-20); Calcium 9.1 mg/dL (8.4-10.2); Carbon Dioxide 30 mmol/L (22-30); Chloride 95 mmol/L (98-107); Glucose 91 mg/dL (74-99); Magnesium 1.9 mg/dL (1.6-2.3); Non-African American GFR(MDRD) >60 (>60 ml/min/1.73 sqM); Phosphorus 4.6 mg/dL (2.5-4.5); Potassium 4.5 mmol/L (3.5-5.1); Sodium 131 mmol/L (137-145)
[2017-05-06] MEDS: INDACATEROL INHALATION SCH (09:02)
[2017-05-06] MEDS: GLYCOPYRROLATE INHALATION SCH (09:02)
[2017-05-06] MEDS: HEPARIN SODIUM,PORCINE 5,000 UNIT/ML 1 ML VIAL SQ SCH (09:04)
[2017-05-06] MEDS: amLODIPine 2.5 MG TAB PEG/G-TUBE SCH (09:04)
[2017-05-06] MEDS: PANTOPRAZOLE 40 MG/10 ML VIAL IVP SCH (09:04)
[2017-05-06] MEDS: OXYMETAZOLINE 0.05% NASL SPRAY 1 SPRAY BOTTLE NASAL SCH (09:05)
[2017-05-06] MEDS ORDERED: SODIUM CHLORIDE 0.9% 1,000 ML IV ONE (09:45)
--- NOTE | 2017-05-06 09:45 | P.PN ---
Subjective Progress Note Date: 05/05/17 Progress note being dictated for Dr. Edge 04/04/17 Interval history: This a 72-year-old gentleman admitted with left leg numbness, possible acute TIA in a patient with history of dysphagia, Field implant and multiple other medical issues. Presented with severe dysphagia and scheduled for PEG tube placement today with GI. Ambulating to and from bathroom , weak. MRI reporting non acute, degenerative and nonspecific white matter changes, remote microvascular ischemia. Patient states left-lower extremity weakness has returned to baseline. 04/05/17 doing well, left lower extremity weakness remains at baseline. status post PEG tube placement, tolerated procedure well. Tube feeds currently at 20 MLS/hr, with goal of 50 MLS per hour-tolerating well with minimal to no residuals. TPN and/lipids currently being weaned off. Denies chest pain, palpitations or increased shortness of breath. Sodium 129. Objective - Vital Signs Vital signs: Vital Signs Temp 97.1 F L 05/05/17 16:00 Pulse 70 05/05/17 16:00 Resp 18 05/05/17 16:00 BP 156/94 05/05/17 16:00 Pulse Ox 91 L 05/05/17 16:00 Intake & Output 05/04/17 05/05/17 05/05/17 18:59 06:59 18:59 Intake Total 1050 0 Output Total 0 Balance 1050 0 Weight 53.9 kg 54.7 kg Intake: IV 50 Intake, IV Titration 1000 Amount Amino Acid 4.25%-D10w+ 1000 Lytes*E* 1,000 ml @ 90 mls/hr IV .BY DURATION [facility] Rx#:[id number] Oral 0 Output: Urine 0 Other: Voiding Method Toilet Urinal # Voids 1 1 1 # Bowel Movements 0 - Exam PHYSICAL EXAM: VITAL SIGNS: As above GENERAL: Sitting up in bed, no acute distress, cachectic, HEENT: Conjunctivae normal. eyes normal. NECK: No JVD. No thyroid enlargement. No LNs CARDIOVASCULAR: S1, S2 muffled. No murmur RESPIRATION: Breath sounds diminished in the bases. Scattered rhonchi and crackles. ABDOMEN: Soft, nontender . PEG tube present-site clean dry, no erythema,No guarding. no masses palpable.positive Bowel sounds LEGS: No edema. no swelling PSYCHIATRY: Alert and oriented -3, mood and affect normal. NERVOUS SYSTEM: Cranial N 2-12 grossly normal. Moves all 4 limbs. Diffuse weakness, No focal deficits. No sensory deficit. Skin: no ulcer no rash - Labs CBC & Chem 7: 05/06/17 05:15 05/06/17 05:15 Labs: Abnormal Lab Results - Last 24 Hours (Table) 05/04/17 05/05/17 05/05/17 Range/Units 23:56 05:22 05:22 RBC 3.83 L (4.30-5.90) m/uL Hgb 12.8 L (13.0-17.5) gm/dL MCV 104.3 H (80.0-100.0) fL Lymphocytes # 0.6 L (1.0-4.8) k/uL Sodium 129 L (137-145) mmol/L Chloride 95 L (98-107) mmol/L Creatinine 0.40 L (0.66-1.25) mg/dL Glucose 110 H (74-99) mg/dL POC Glucose (mg/dL) 114 H (75-99) mg/dL 05/05/17 05/05/17 Range/Units 05:47 11:21 RBC (4.30-5.90) m/uL Hgb (13.0-17.5) gm/dL MCV (80.0-100.0) fL Lymphocytes # (1.0-4.8) k/uL Sodium (137-145) mmol/L Chloride (98-107) mmol/L Creatinine (0.66-1.25) mg/dL Glucose (74-99) mg/dL POC Glucose (mg/dL) 104 H 100 H (75-99) mg/dL Assessment and Plan Plan: 1. Numbness, weakness of the left side, possible acute TIA. 2. [ Dysphasia with vocal cord paralysis, rule out bulbar palsy, history of Field implant]. 3. [ Dysphagia with aspiration risk, status post PEG tube placement. 4. [ Severe protein calorie malnutrition, BMI 17.1, present on admission]. 5. [ Gait dysfunction, significant weakness]. 6. [ Rheumatoid arthritis history]. 7. Hypertension 8. Hypovolemic hyponatremia secondary to decreased intake. Plan: Continue on current medication regime , GI prophylaxis, monitoring and symptomatic treatment. Maintain strict aspiration precautions. Tube feeding advancement in progress to goal of 50. TPN/lipids as mentioned above currently being weaned off. Sodium 129, Fluid bolus ordered. Close monitoring of electrolytes with repeat labs ordered for a.m. Discharge planning in progress for tomorrow once tube feeds at goal, feeding pump arranged for home. currently away from bedside, patient updated on plan of care, verbalized understanding and agreement with. The impression and plan of care has been dictated as directed as a scribe. : I performed a H&P examination of this patient and discussed the same with the dictator. I agree with the dictator's note. Any additional findings/opinions will be noted.
[2017-05-06] MEDS: LEVALBUTEROL NEB 1.25 MG/3 ML AMP INHALATION SCH (10:53)
[2017-05-06] MEDS ORDERED: ACETAMINOPHEN TAB 500 MG TAB PO PRN (11:06)
[2017-05-06 11:29] LABS: Glucose,Whole Blood 113 mg/dL (75-99)
[2017-05-06] MEDS ORDERED: ALBUTEROL NEBULIZED 2.5 MG/3 ML INHALATION SCH (12:00)
[2017-05-06 14:04] VITALS: BP 127/82; PULSE 76; TEMP 96.6
--- NOTE | 2017-05-06 14:16 | P.DS ---
Providers Date of admission: 05/01/17 12:53 Expected date of discharge: 05/06/17 Attending physician: Madison Art Consults: 05/01/17 12:53 Consult Physician Routine Consulting Provider: Nba Sanchez Consult Reason/Comments: CVA Do you want consulting provider notified?: Yes GI, Dr. Nuha Dill, Dr. Joseph Primary care physician: [facility] Course: Final Diagnoses: 1. Numbness, weakness of the left side, possible acute TIA.MG work-up in progress. 2. [ Dysphasia with vocal cord paralysis, rule out bulbar palsy, history of Field implant]. 3. [ Dysphagia with aspiration risk, s/p PEG tube placement]. 4. [ Severe protein calorie malnutrition, BMI 17.1, present on admission]. 5. [ Gait dysfunction, significant weakness]. 6. [ Rheumatoid arthritis history]. 7. Hypertension 8. Hypovolemic Hyponatremia r/t decreased oral intake Hospital COurse:This is a 72-year-old gentleman admitted with left leg numbness , possible acute TIA in a patient with history of dysphagia,vocal cord paralysis , Field implant and multiple other medical issues. Evaluated by Neurology & GI. Neurology work-up completed.EEG within normal limits. Carotid dopple with no significant hemodynamic stenosis. MRI reporting non acute, degenerative and nonspecific white matter changes, remote microvascular ischemia.CT neck,CHest reported bibasilar atlectasis,4cm aneurysm of ascending aorta. Patient states left-lower extremity weakness has returned to baseline. Presented with severe dysphagia and underwent PEG tube placement. Tolerating TF at Goal with minimal to no residuals. Cleared by all consults for discharge.Recommend further neurological evaluation at a tertiary center given multiple complex medical issues.Referral sent TO [facility].Patient is being discharged home in a stable condition with guarded prognosis. The impression and plan of care has been dictated as directed as a scribe. : I performed a H&P examination of this patient and discussed the same with the dictator. I agree with the dictator's note. Any additional findings/opinions will be noted. Patient Condition at Discharge: Stable Plan - Discharge Summary New Discharge Prescriptions: New Artificial Tears-Hypromellose [Artificial Tear Drops] 1 drops BOTH EYES QID PRN bottle PRN Reason: Dry Eye(S) Atorvastatin [Lipitor] 40 mg PO HS #30 tab Oxymetazoline 0.05% Nasl [place] [Afrin 0.05% Nasal [place]] 2 spray NASAL BID bottle amLODIPine [Norvasc] 2.5 mg PEG/G-TUBE DAILY #30 tab Continue Prazosin [Minipress] 1 mg PO HS Omeprazole 20 mg PO QAM Aspirin 81 mg PO HS Loratadine-Pseudoeph 10-240 mg [Claritin-D 24 Hour] 1 tab PO HS guaiFENesin [Mucinex] 600 mg PO BID [place]-3 Fatty Acids [[place]-3] 1,000 mg PO HS Albuterol Inhaler [Ventolin Hfa Inhaler] 2 puff INHALATION Q6HR PRN PRN Reason: Shortness Of Breath Ipratropium/Albuterol Sulfate [Combivent Respimat Inhaler] 1 puff INHALATION RT-QID Indacaterol/Glycopyrrolate [Utibron Neohaler 27.5-15.6 Mcg] Discontinued Simvastatin [Simvastatin] 10 mg PO HS Discharge Medication List Omeprazole 20 mg PO QAM 07/31/14 [History] Prazosin [Minipress] 1 mg PO HS 07/31/14 [History] Aspirin 81 mg PO HS 08/03/14 [History] Albuterol Inhaler [Ventolin Hfa Inhaler] 2 puff INHALATION Q6HR PRN 05/01/17 [ History] Indacaterol/Glycopyrrolate [Ut[place]ron Neohaler 27.5-15.6 Mcg] 05/01/17 [History] Ipratropium/Albuterol Sulfate [Combivent Respimat Inhaler] 1 puff INHALATION RT- QID 05/01/17 [History] Loratadine-Pseudoeph 10-240 mg [Claritin-D 24 Hour] 1 tab PO HS 05/01/17 [ History] [place]-3 Fatty Acids [[place]-3] 1,000 mg PO HS 05/01/17 [History] guaiFENesin [Mucinex] 600 mg PO BID 05/01/17 [History] Artificial Tears-Hypromellose [Artificial Tear Drops] 1 drops BOTH EYES QID PRN bottle 05/06/17 [Rx] Atorvastatin [Lipitor] 40 mg PO HS #30 tab 05/06/17 [Rx] Oxymetazoline 0.05% Nasl [place] [Afrin 0.05% Nasal [place]] 2 spray NASAL BID bottle 05/06/17 [Rx] amLODIPine [Norvasc] 2.5 mg PEG/G-TUBE DAILY #30 tab 05/06/17 [Rx] Follow up Appointment(s)/Referral(s): [facility] neurology [Other] - 2 Weeks (Dr. Terrazas or Dr. Cruz at Neurology clinic.) Rolando Joseph MD [STAFF PHYSICIAN] - 1 Week [facility], [NON-STAFF] - 1 Week Harish Alvarado DO [Primary Care Provider] - 3 Days [facility], [REFERRING] - 1 Week Ambulatory/Diagnostic Orders: Basic Metabolic Panel [LAB.AMB] Time Frame: 3 Days, Location: Determined By Patient Patient Instructions/Handouts: Percutaneous Endoscopic Gastrostomy Insertion ( DC), How to Use and Care for Your PEG Tube (DC), Surgical Site Infections (DC), Tube Feeding (DC) Activity/Diet/Wound Care/Special Instructions: change mucinex, fish oil to liquid for peg tube. carotid US-CT of neck-H&P-Neurology [id number] and labs faxed to [facility] fax# [phone] phone# [phone] Strict Aspiration Precautions Peg tube feedings Jevity 1.5 at 50ml/hr Activity: limited till f/u Discharge Disposition: HOME WITH HOME HEALTH SERVICES
[2017-05-06 15:35] VITALS: BMI 17.8
== END 2017-05-06 15:45 | disposition home health service (06) | DRG 69 ==
LOC: EC 10:38 → 6SEL 12:53
PROVIDERS: ADMIT Hospitalist; ATTEND Hospitalist
PROC: 3E0336Z Introduction of Nutritional Substance into Peripheral Vein, Percutaneous Approach (ICD-10-PCS; 2017-05-02)
PROC: 0DJ08ZZ Inspection of Upper Intestinal Tract, Via Natural or Artificial Opening Endoscopic (ICD-10-PCS; 2017-05-04)
PROC: 0DH63UZ Insertion of Feeding Device into Stomach, Percutaneous Approach (ICD-10-PCS; principal; 2017-05-04 07:30)
DX: G45.9 Transient cerebral ischemic attack, unspecified (principal); E43 Unspecified severe protein-calorie malnutrition; J38.00 Paralysis of vocal cords and larynx, unspecified; I71.2 Thoracic aortic aneurysm, without rupture; J44.9 Chronic obstructive pulmonary disease, unspecified; E87.1 Hypo-osmolality and hyponatremia; J98.11 Atelectasis; Z68.1 Body mass index [BMI] 19.9 or less, adult; R13.10 Dysphagia, unspecified; M06.9 Rheumatoid arthritis, unspecified; R53.1 Weakness; K22.70 Barrett's esophagus without dysplasia; R26.9 Unspecified abnormalities of gait and mobility; I10 Essential (primary) hypertension; K44.9 Diaphragmatic hernia without obstruction or gangrene; K21.9 Gastro-esophageal reflux disease without esophagitis; R47.02 Dysphasia; E78.5 Hyperlipidemia, unspecified; Z87.891 Personal history of nicotine dependence; Z88.2 Allergy status to sulfonamides; Z79.82 Long term (current) use of aspirin; Z79.899 Other long term (current) drug therapy; Z85.79 Personal history of other malignant neoplasms of lymphoid, hematopoietic and related tissues; Z90.89 Acquired absence of other organs; Z90.49 Acquired absence of other specified parts of digestive tract; Z87.19 Personal history of other diseases of the digestive system; Z86.718 Personal history of other venous thrombosis and embolism
CPT/HCPCS: 36415; 43246; 70450; 70491; 70553; 71020; 71260; 74230; 80048; 80053; 80061; 81003; 82040; 82330; 82550; 82553; 83090; 83516; 83519; 83735; 84100; 84484; 85025; 85610; 85652; 85730; 86140; 93005; 93880; 94640; 94760; 95819; 99285

== ENCOUNTER 2017-08-08 21:01 | Inpatient (IN) | payer MEDICARE ==
[2017-08-08] MEDS ORDERED: ALBUTEROL NEBULIZED 2.5 MG/3 ML INHALATION STA (22:08)
[2017-08-08] MEDS ORDERED: SODIUM CHLORIDE 0.9% 1,000 ML IV STA (22:08)
[2017-08-08 22:19] LABS: Basophils % (A) 1 %; Eosinophils # (A) 0.1 k/uL (0-0.7); Eosinophils % (A) 1 %; HCT 36.6 % (39.0-53.0); Lymphocytes # (A) 0.9 k/uL (1.0-4.8); Lymphocytes % (A) 14 %; MCH 34.6 pg (25.0-35.0); MCHC 32.8 g/dL (31.0-37.0); MCV 105.5 fL (80.0-100.0); Macrocytosis Moderate; Mean Platelet Volume 8.3; Monocytes # (A) 0.2 k/uL (0-1.0); Monocytes % (A) 3 %; Neutrophils # (A) 5.1 k/uL (1.3-7.7); Neutrophils % (A) 81 %; Platelet Count 161 k/uL (150-450); RBC 3.47 m/uL (4.30-5.90); RDW 14.1 % (11.5-15.5); WBC 6.4 k/uL (3.8-10.6)
--- NOTE | 2017-08-08 22:20 | ED ---
General Adult HPI - General Chief complaint: Weakness Stated complaint: Weakness Time Seen by Provider: 08/08/17 21:25 Source: patient, family, RN notes reviewed, old records reviewed Mode of arrival: EMS Limitations: no limitations - History of Present Illness Initial comments: 72-year-old male history of multiple myeloma, COPD, Phillips's esophagus presenting with generalized weakness. Patient states he has had increase in his cough which is productive over the past several days. Denies fever. Denies headache. Denies vision changes or lightheadedness. Denies focal weakness. Denies chest pain. Denies abdominal pain. Patient is fed through a PEG tube. No diarrhea. Patient denies any lower extremity swelling. Denies any pain complaints. According to patient's he had an episode of confusion this was earlier in the day, patient was not answering patient's appropriately. This has resolved by the time my evaluation, he is alert and oriented. - Related Data Home Medications Medication Instructions Recorded Confirmed Omeprazole 20 mg PO QAM 07/31/14 05/01/17 Prazosin [Minipress] 1 mg PO HS 07/31/14 05/01/17 Aspirin 81 mg PO HS 08/03/14 05/01/17 Albuterol Inhaler [Ventolin Hfa 2 puff INHALATION Q6HR PRN 05/01/17 05/01/17 Inhaler] Indacaterol/Glycopyrrolate 05/01/17 [Utibron Neohaler 27.5-15.6 Mcg] Ipratropium/Albuterol Sulfate 1 puff INHALATION RT-QID 05/01/17 05/01/17 [Combivent Respimat Inhaler] Loratadine-Pseudoeph 10-240 mg 1 tab PO HS 05/01/17 05/01/17 [Claritin-D 24 Hour] [place]-3 Fatty Acids [[place]-3] 1,000 mg PO HS 05/01/17 05/01/17 guaiFENesin [Mucinex] 600 mg PO BID 05/01/17 05/01/17 Previous Rx's Medication Instructions Recorded Artificial Tears-Hypromellose 1 drops BOTH EYES QID PRN bottle 05/06/17 [Artificial Tear Drops] Atorvastatin [Lipitor] 40 mg PO HS #30 tab 05/06/17 Oxymetazoline 0.05% Nasl [place] 2 spray NASAL BID bottle 05/06/17 [Afrin 0.05% Nasal [place]] amLODIPine [Norvasc] 2.5 mg PEG/G-TUBE DAILY #30 tab 05/06/17 Allergies Allergy/AdvReac Type Severity Reaction Status Date / Time Sulfa (Sulfonamide Allergy Rash/Hives Verified 08/08/17 21:14 Antibiotics) Review of Systems ROS Statement: Those systems with pertinent positive or pertinent negative responses have been documented in the HPI. ROS Other: All systems not noted in ROS Statement are negative. Past Medical History Past Medical History: Blood Disorder, CVA/TIA, GERD/Reflux, Rheumatoid Arthritis (RA) Additional Past Medical History / Comment(s): DYSPHAGIA, ASPIRATION PRECAUTIONS , 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 Gaping esophagus, barretts esophagus. EGD. Multiple myeloma History of Any Multi-Drug Resistant Organisms: None Reported Past Surgical History: Appendectomy, Hernia Repair, Orthopedic Surgery, Tonsillectomy Additional Past Surgical History / Comment(s): LEFT BUNION SX, HEMMORIODECTOMY, (R) ring finger sx. Nasal reduction Additional Past Anesthesia/Blood Transfusion Reaction / Comment(s): PARALYZED VOCAL CHORDS Past Psychological History: No Psychological Hx Reported Smoking Status: Former smoker Past Alcohol Use History: Occasional Past Drug Use History: None Reported General Exam Limitations: no limitations General appearance: alert, cachectic Head exam: Present: atraumatic, normocephalic Eye exam: Present: normal appearance, PERRL ENT exam: Present: mucous membranes dry Neck exam: Present: normal inspection. Absent: tenderness, meningismus Respiratory exam: Present: wheezes, rales, rhonchi. Absent: respiratory distress Cardiovascular Exam: Present: regular rate, normal rhythm GI/Abdominal exam: Present: soft. Absent: distended, tenderness Extremities exam: Present: normal inspection, normal capillary refill. Absent: pedal edema Back exam: Present: normal inspection, full ROM. Absent: tenderness Neurological exam: Present: alert, oriented X3, CN II-XII intact. Absent: motor sensory deficit Psychiatric exam: Present: normal affect, normal mood Skin exam: Present: warm, dry, intact. Absent: cyanosis, diaphoretic Course Vital Signs 08/08/17 08/08/1718 21:04 21:10 22:18 Temperature 97.6 F Pulse Rate 77 76 97 Respiratory 18 18 Rate Blood Pressure 89/52 87/53 O2 Sat by Pulse 99 96 Oximetry 08/08/17 08/08/17 08/08/17 22:34 23:14 23:27 Temperature 100.2 F H Pulse Rate 98 75 87 Respiratory 18 18 Rate Blood Pressure 97/54 102/54 O2 Sat by Pulse 98 97 Oximetry 08/09/17 08/09/17 00:21 00:29 Temperature 99.4 F Pulse Rate 80 76 Respiratory 18 18 Rate Blood Pressure 88/58 99/58 O2 Sat by Pulse 96 94 L Oximetry EKG Findings - EKG Comments: EKG Findings:: EKG shows normal sinus rhythm, ventricular rate 72, AL of 01 90, QRS duration 80, QTc 396, no ST segment elevation Medical Decision Making - Medical Decision Making 72-year-old male presenting with generalized weakness, cough, dyspnea, fever. Patient blood pressure initially low, does respond to fluid hydration. According to family had an episode of altered mental status and confusion, this is resolved, likely secondary to low blood pressure. Laboratory studies reveal white blood cell count 6.4, hemoglobin 12, sodium 133, lactic acid normal 1.9, troponin negative, influenza is positive. CT negative for acute intracranial abnormality. Chest x-ray shows no right middle lung pneumonia versus atelectasis. Patient is started on antibiotics for concurrent community- acquired pneumonia in addition to his influenza. He will be admitted for IV antibiotics, IV hydration, and pulmonary evaluation. Diagnosis: COPD, community acquired pneumonia, influenza - Lab Data Result diagrams: 08/08/17 21:50 08/08/17 21:50 Lab Results 08/08/17 08/08/17 08/08/17 Range/Units 21:50 21:50 21:50 WBC 6.4 (3.8-10.6) k/uL RBC 3.47 L (4.30-5.90) m/uL Hgb 12.0 L (13.0-17.5) gm/dL Hct 36.6 L (39.0-53.0) % MCV 105.5 H (80.0-100.0) fL MCH 34.6 (25.0-35.0) pg MCHC 32.8 (31.0-37.0) g/dL RDW 14.1 (11.5-15.5) % Plt Count 161 (150-450) k/uL Neutrophils % 81 % Lymphocytes % 14 % Monocytes % 3 % Eosinophils % 1 % Basophils % 1 % Neutrophils # 5.1 (1.3-7.7) k/uL Lymphocytes # 0.9 L (1.0-4.8) k/uL Monocytes # 0.2 (0-1.0) k/uL Eosinophils # 0.1 (0-0.7) k/uL Basophils # 0.0 (0-0.2) k/uL Macrocytosis Moderate PT (9.0-12.0) sec INR (<1.2) APTT (22.0-30.0) sec Sodium 133 L (137-145) mmol/L Potassium 4.5 (3.5-5.1) mmol/L Chloride 95 L (98-107) mmol/L Carbon Dioxide 32 H (22-30) mmol/L Anion Gap 6 mmol/L BUN 20 (9-20) mg/dL Creatinine 0.80 (0.66-1.25) mg/dL Est GFR (MDRD) Af Amer >60 (>60 ml/min/1.73 sqM) Est GFR (MDRD) Non-Af >60 (>60 ml/min/1.73 sqM) Glucose 136 H (74-99) mg/dL Plasma Lactic Acid Cristian (0.7-2.0) mmol/L Calcium 8.8 (8.4-10.2) mg/dL Magnesium 1.8 (1.6-2.3) mg/dL Total Bilirubin 0.6 (0.2-1.3) mg/dL AST 53 (17-59) U/L ALT 59 (21-72) U/L Alkaline Phosphatase 80 (38-126) U/L Total Creatine Kinase 149 (55-170) U/L CK-MB (CK-2) 1.2 (0.0-2.4) ng/mL CK-MB (CK-2) Rel Index 0.8 Troponin I <0.012 (0.000-0.034) ng/mL Total Protein 7.3 (6.3-8.2) g/dL Albumin 3.6 (3.5-5.0) g/dL Urine Color Urine Appearance (Clear) Urine pH (5.0-8.0) Ur Specific [place] (1.001-1.035) Urine Protein (Negative) Urine Glucose (UA) (Negative) Urine Ketones (Negative) Urine Blood (Negative) Urine Nitrite (Negative) Urine Bilirubin (Negative) Urine Urobilinogen (<2.0) mg/dL Ur Leukocyte Esterase (Negative) Urine RBC (0-5) /hpf Urine WBC (0-5) /hpf Ur Squamous Epith Cells (0-4) /hpf Amorphous Sediment (None) /hpf Urine Bacteria (None) /hpf Hyaline Casts (0-2) /lpf Urine Mucus (None) /hpf Influenza Type A RNA (Not Detectd) Influenza Type B (PCR) (Not Detectd) 08/08/17 08/08/17 08/08/17 Range/Units 21:50 21:50 22:15 WBC (3.8-10.6) k/uL RBC (4.30-5.90) m/uL Hgb (13.0-17.5) gm/dL Hct (39.0-53.0) % MCV (80.0-100.0) fL MCH (25.0-35.0) pg MCHC (31.0-37.0) g/dL RDW (11.5-15.5) % Plt Count (150-450) k/uL Neutrophils % % Lymphocytes % % Monocytes % % Eosinophils % % Basophils % % Neutrophils # (1.3-7.7) k/uL Lymphocytes # (1.0-4.8) k/uL Monocytes # (0-1.0) k/uL Eosinophils # (0-0.7) k/uL Basophils # (0-0.2) k/uL Macrocytosis PT 10.5 (9.0-12.0) sec INR 1.1 (<1.2) APTT 24.7 (22.0-30.0) sec Sodium (137-145) mmol/L Potassium (3.5-5.1) mmol/L Chloride (98-107) mmol/L Carbon Dioxide (22-30) mmol/L Anion Gap mmol/L BUN (9-20) mg/dL Creatinine (0.66-1.25) mg/dL Est GFR (MDRD) Af Amer (>60 ml/min/1.73 sqM) Est GFR (MDRD) Non-Af (>60 ml/min/1.73 sqM) Glucose (74-99) mg/dL Plasma Lactic Acid Cristian 1.9 (0.7-2.0) mmol/L Calcium (8.4-10.2) mg/dL Magnesium (1.6-2.3) mg/dL Total Bilirubin (0.2-1.3) mg/dL AST (17-59) U/L ALT (21-72) U/L Alkaline Phosphatase (38-126) U/L Total Creatine Kinase (55-170) U/L CK-MB (CK-2) (0.0-2.4) ng/mL CK-MB (CK-2) Rel Index Troponin I (0.000-0.034) ng/mL Total Protein (6.3-8.2) g/dL Albumin (3.5-5.0) g/dL Urine Color Urine Appearance (Clear) Urine pH (5.0-8.0) Ur Specific [place] (1.001-1.035) Urine Protein (Negative) Urine Glucose (UA) (Negative) Urine Ketones (Negative) Urine Blood (Negative) Urine Nitrite (Negative) Urine Bilirubin (Negative) Urine Urobilinogen (<2.0) mg/dL Ur Leukocyte Esterase (Negative) Urine RBC (0-5) /hpf Urine WBC (0-5) /hpf Ur Squamous Epith Cells (0-4) /hpf Amorphous Sediment (None) /hpf Urine Bacteria (None) /hpf Hyaline Casts (0-2) /lpf Urine Mucus (None) /hpf Influenza Type A RNA Detected H (Not Detectd) Influenza Type B (PCR) Not Detected (Not Detectd) 08/08/17 Range/Units 22:22 WBC (3.8-10.6) k/uL RBC (4.30-5.90) m/uL Hgb (13.0-17.5) gm/dL Hct (39.0-53.0) % MCV (80.0-100.0) fL MCH (25.0-35.0) pg MCHC (31.0-37.0) g/dL RDW (11.5-15.5) % Plt Count (150-450) k/uL Neutrophils % % Lymphocytes % % Monocytes % % Eosinophils % % Basophils % % Neutrophils # (1.3-7.7) k/uL Lymphocytes # (1.0-4.8) k/uL Monocytes # (0-1.0) k/uL Eosinophils # (0-0.7) k/uL Basophils # (0-0.2) k/uL Macrocytosis PT (9.0-12.0) sec INR (<1.2) APTT (22.0-30.0) sec Sodium (137-145) mmol/L Potassium (3.5-5.1) mmol/L Chloride (98-107) mmol/L Carbon Dioxide (22-30) mmol/L Anion Gap mmol/L BUN (9-20) mg/dL Creatinine (0.66-1.25) mg/dL Est GFR (MDRD) Af Amer (>60 ml/min/1.73 sqM) Est GFR (MDRD) Non-Af (>60 ml/min/1.73 sqM) Glucose (74-99) mg/dL Plasma Lactic Acid Cristian (0.7-2.0) mmol/L Calcium (8.4-10.2) mg/dL Magnesium (1.6-2.3) mg/dL Total Bilirubin (0.2-1.3) mg/dL AST (17-59) U/L ALT (21-72) U/L Alkaline Phosphatase (38-126) U/L Total Creatine Kinase (55-170) U/L CK-MB (CK-2) (0.0-2.4) ng/mL CK-MB (CK-2) Rel Index Troponin I (0.000-0.034) ng/mL Total Protein (6.3-8.2) g/dL Albumin (3.5-5.0) g/dL Urine Color Yellow Urine Appearance Cloudy (Clear) Urine pH 7.5 (5.0-8.0) Ur Specific [place] 1.015 (1.001-1.035) Urine Protein 1+ H (Negative) Urine Glucose (UA) Negative (Negative) Urine Ketones Negative (Negative) Urine Blood Negative (Negative) Urine Nitrite Negative (Negative) Urine Bilirubin Negative (Negative) Urine Urobilinogen 4.0 (<2.0) mg/dL Ur Leukocyte Esterase Negative (Negative) Urine RBC 1 (0-5) /hpf Urine WBC 3 (0-5) /hpf Ur Squamous Epith Cells <1 (0-4) /hpf Amorphous Sediment Rare H (None) /hpf Urine Bacteria Rare H (None) /hpf Hyaline Casts 76 H (0-2) /lpf Urine Mucus Few H (None) /hpf Influenza Type A RNA (Not Detectd) Influenza Type B (PCR) (Not Detectd) Disposition Clinical Impression: Dehydration, COPD exacerbation, Community acquired pneumonia, Influenza A Disposition: ADMITTED IP TO THIS HOSP Condition: Stable Referrals: Harish Alvarado DO [Primary Care Provider] - 1-2 days Decision to Admit Reason: Admit from EC Decision Date: 08/09/17 Decision Time: 00:42
[2017-08-08 22:28] LABS: ALT 59 U/L (21-72); AST 53 U/L (17-59); Albumin 3.6 g/dL (3.5-5.0); Alkaline Phosphatase 80 U/L (38-126); Anion Gap 6 mmol/L; Blood Urea Nitrogen 20 mg/dL (9-20); Calcium 8.8 mg/dL (8.4-10.2); Carbon Dioxide 32 mmol/L (22-30); Chloride 95 mmol/L (98-107); Glucose 136 mg/dL (74-99); Magnesium 1.8 mg/dL (1.6-2.3); Potassium 4.5 mmol/L (3.5-5.1); Sodium 133 mmol/L (137-145); Total Bilirubin 0.6 mg/dL (0.2-1.3); Total Protein 7.3 g/dL (6.3-8.2)
[2017-08-08 22:39] LABS: Creatine Kinase 149 U/L (55-170)
[2017-08-08 22:52] LABS: Creatine Kinase MB 1.2 ng/mL (0.0-2.4); Troponin I <0.012 ng/mL (0.000-0.034)
[2017-08-08 23:15] LABS: INR 1.1 (<1.2); Partial Thromboplastin Time 24.7 sec (22.0-30.0); Prothrombin Time 10.5 sec (9.0-12.0)
--- NOTE | 2017-08-08 23:50 | CT ---
EXAMINATION TYPE: CT brain wo con DATE OF EXAM: 08/08/2017 COMPARISON: 05/01/2017 HISTORY: Weakness and chest congestion. CT DLP: 1051.7 mGycm Automated exposure control for dose reduction was used. FINDINGS: There is some cerebral cortical atrophy. There is no mass effect nor midline shift. There is no sign of intracranial hemorrhage. There is minimal hypodensity in the periventricular white matter. [place] um is intact. There is fluid level in right maxillary sinus. IMPRESSION: CEREBRAL ATROPHY AND MILD CHRONIC SMALL VESSEL ISCHEMIA. NO ACUTE INTRACRANIAL ABNORMALITY. NO CHANGE . NEW MILD RIGHT MAXILLARY SINUSITIS.
[2017-08-08 23:51] LABS: Amorphous Sediment,Urine Rare /hpf; Appearance,Urine Cloudy (Clear); Bacteria,Urine Rare /hpf; Bilirubin,Urine Negative (Negative); Blood,Urine Negative (Negative); Color,Urine Yellow; Glucose,Urine (UA) Negative (Negative); Hyaline Casts,Urine 76 /lpf (0-2); Ketones,Urine Negative (Negative); Leukocyte Esterase,Urine Negative (Negative); Mucus,Urine Few /hpf; Nitrite,Urine Negative (Negative); PH, Urine 7.5 (5.0-8.0); Protein,Urine 1+ (Negative); RBC,Urine 1 /hpf (0-5); Specific Gravity,Urine 1.015 (1.001-1.035); Squamous Epithelial Cell,Urine <1 /hpf (0-4); WBC,Urine 3 /hpf (0-5)
--- NOTE | 2017-08-08 23:57 | XR ---
EXAM: XR Chest, 2 Views CLINICAL HISTORY: Reason: Weakness TECHNIQUE: Frontal and lateral views of the chest. COMPARISON: No relevant prior studies available. FINDINGS: Lungs: Medial right lower lobe airspace opacities, suspicious for pneumonia versus atelectasis. Pleural space: No pleural effusion. No pneumothorax. Heart: No cardiomegaly. Mediastinum: Unremarkable. Bones/joints: No acute findings. Upper abdomen: Increased elevation of the right hemidiaphragm. IMPRESSION: 1. Medial right lower lobe airspace opacities, suspicious for pneumonia versus atelectasis. Correlate for pneumonia. 2. Increased elevation of the right hemidiaphragm.
[2017-08-09] MEDS ORDERED: SODIUM CHLORIDE 0.9% 500 ML IV ONE (00:18)
[2017-08-09] MEDS ORDERED: IPRATROPIUM-ALBUTEROL 3 ML NEB INHALATION PRN (00:30)
[2017-08-09] MEDS ORDERED: AZITHROMYCIN 500 MG in SODIUM CHLORIDE 0.9% 250 ML IVPB STA (00:34)
[2017-08-09] MEDS ORDERED: cefTRIAXone IN SWFI 1,000 MG/10 ML SYRINGE IVP STA (00:34)
[2017-08-09] MEDS ORDERED: ACETAMINOPHEN IV (For NPO) 1,000 MG in EMPTY BAG 1 BAG IVPB PRN (03:00)
[2017-08-09] MEDS: IPRATROPIUM-ALBUTEROL 3 ML NEB INHALATION SCH ×4 (07:00→20:32)
[2017-08-09] MEDS: guaiFENesin SYRUP 100MG/5ML 200 MG/10 ML CUP PO PRN (08:11)
[2017-08-09] MEDS ORDERED: predniSONE 20 MG TAB PO SCH (09:00)
[2017-08-09] MEDS ORDERED: guaiFENesin 600 MG TABLET.ER PO SCH (09:00)
[2017-08-09] MEDS ORDERED: methylPREDNISolone SOD SUCCI 40 MG/ML 1 ML VIAL IV SCH (09:00)
[2017-08-09 09:55] VITALS: BMI 19.7
--- NOTE | 2017-08-09 12:47 | P.CNPUL ---
History of Present Illness Consult date: 08/09/17 Requesting physician: Jovani Oglesby Reason for consult: pneumonia Chief complaint: productive cough, shortness of breath. History of present illness: this is a 72-year-old white male with history of multiple medical problems including severe COPD for which she sees Dr. Magdaleno on a regular basis. History of bulbar palsy disease,patient is still undergoing diagnostic workup at the [facility] for his bulbar palsy,but it is almost confirmed that this is what he truly has. Patient had long-standing history of dysphagia , recurrent episodes of aspiration, dysphonia and slurred speech, and history of dysarthria. No history of tongue fasciculations.patient also had previous history of CVA which may have been a contributing factor to his bulbar palsy.considering his previous history of aspiration, patient had a PEG tube placement, and he is only fed via PEG tube. Today the patient presented to the ER with mostly symptoms of cough, fever, shortness of breath. Cough was described as productive with thick yellow greenish phlegm. Chest x-ray showed evidence of right lower lobe pneumonia hence the patient was admitted, and this consult was initiated. Patient denies any headaches, no blurred vision, no dizziness, he does have symptoms of bulbar palsy as noted above. He has pulmonary symptoms as noted above. Had difficulty swallowing as noted above. Uses his PEG tube a regular basis. Denies any dysuria frequency urgency or hematuria, no aches and pains. Review of Systems 14 point review of systems were obtained, please refer to pertinent positives as noted in HPI otherwise remaining systems are negative. 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 Gaping esophagus, barretts esophagus. EGD. 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 Nasal reduction, PEG tube placement 10-2017 Additional Past Anesthesia/Blood Transfusion Reaction / Comment(s): PARALYZED VOCAL CHORDS Past Psychological History: No Psychological Hx Reported Smoking Status: Former smoker Past Alcohol Use History: Occasional Past Drug Use History: None Reported Medications and Allergies Home Medications Medication Instructions Recorded Confirmed Type Omeprazole 20 mg PO BID 07/31/14 08/09/17 History Prazosin [Minipress] 1 mg PO HS 07/31/14 08/09/17 History Aspirin 81 mg PO HS 08/03/14 08/09/17 History Albuterol Inhaler [Ventolin Hfa 2 puff INHALATION RT-Q6H PRN 05/01/17 08/09/17 History Inhaler] Ipratropium/Albuterol Sulfate 1 puff INHALATION RT-QID 05/01/17 08/09/17 History [Combivent Respimat Inhaler] Loratadine-Pseudoeph 10-240 mg 1 tab PO HS 05/01/17 08/09/17 History [Claritin-D 24 Hour] guaiFENesin [Mucinex] 600 mg PO BID 05/01/17 08/09/17 History Atorvastatin [Lipitor] 40 mg PO HS #30 tab 05/06/17 08/09/17 Rx Multivit-Min/FA/Lycopen/Lutein 1 tab PO DAILY 08/09/17 08/09/17 History [Centrum Silver Men Tablet] Allergies Allergy/AdvReac Type Severity Reaction Status Date / Time Sulfa (Sulfonamide Allergy Rash/Hives Verified 08/09/17 08:18 Antibiotics) Physical Exam Vitals: Vital Signs Temp Pulse Pulse Resp BP BP Pulse Ox 08/09/17 12:18 120 H 14 95/61 96 08/09/17 11:10 74 08/09/17 10:57 70 08/09/17 07:17 72 08/09/17 07:04 68 96 08/09/17 07:00 96.6 F L 67 20 96/63 96 08/09/17 01:57 98.6 F 78 18 103/67 97 08/09/17 01:34 101.7 F H 78 18 106/56 96 08/09/17 00:29 99.4 F 76 18 99/58 94 L 08/09/17 00:21 80 18 88/58 96 08/08/17 23:27 100.2 F H 87 18 102/54 97 08/08/17 23:14 75 18 97/54 98 08/08/17 22:34 98 08/08/17 22:18 97 08/08/17 21:10 76 18 87/53 96 08/08/17 21:04 97.6 F 77 18 89/52 99 Intake and Output 08/08/17 08/09/17 08/09/17 22:59 06:59 14:59 Intake Total 0 2880 Balance 0 2880 Intake: Oral 0 Tube Feeding 2880 Other: Voiding Method Toilet Toilet # Voids 1 Weight 60.781 kg 62.369 kg 62.369 kg Patient Weight 08/10/17 06:59 Weight 62.369 kg General appearance: alert, cachectic, in no form of respiratory distress. Head exam: Present: atraumatic, normocephalic Eye exam:PERRLA, EOMI, ENT exam: neck supple no neck masses no thyromegaly. No stridor noted. Neck exam: Present: normal inspection. Absent: tenderness, meningismus. No cervical lymphadenopathy noted. Respiratory exam:crackles or rhonchi and wheezes noted bilaterally especially at the right base. No chest wall tenderness. Cardiovascular Exam: Present: regular rate, normal rhythm GI/Abdominal exam: Present: soft. Absent: distended, tenderness. PEG tube is noted. No areas of erythema or cellulitis around the PEG tube. Extremities exam: Present: normal inspection, normal capillary refill. Absent: pedal edema Back exam: Present: normal inspection, full ROM. Absent: tenderness Neurological exam: no gross focal neurologic deficit, however the patient is noted to have difficulty with his speech, dysphonia is noted, dysarthria is noted, no evidence of fasciculations. Psychiatric exam: normal mood affect and normal mental status examination noted. Skin exam: no evidence of rashes erythema, and no cyanosis. Results - Laboratory Findings CBC and BMP: 08/08/17 21:50 08/08/17 21:50 PT/INR, D-dimer PT 10.5 sec (9.0-12.0) 08/08/17 21:50 INR 1.1 (<1.2) 08/08/17 21:50 Abnormal lab findings: Abnormal Labs 08/08/17 08/08/17 08/08/17 21:50 21:50 22:15 RBC 3.47 L Hgb 12.0 L Hct 36.6 L MCV 105.5 H Lymphocytes # 0.9 L Sodium 133 L Chloride 95 L Carbon Dioxide 32 H Glucose 136 H Urine Protein Amorphous Sediment Urine Bacteria Hyaline Casts Urine Mucus Influenza Type A RNA Detected H 08/08/17 22:22 RBC Hgb Hct MCV Lymphocytes # Sodium Chloride Carbon Dioxide Glucose Urine Protein 1+ H Amorphous Sediment Rare H Urine Bacteria Rare H Hyaline Casts 76 H Urine Mucus Few H Influenza Type A RNA - Diagnostic Findings Chest x-ray: image reviewed (right lower lobe pneumonia is strongly suspected.) Additional studies: CT of the brain showed cerebral atrophy, no acute intracranial abnormality noted. And mild right maxillary sinusitis was noted. Assessment and Plan Assessment: impression: 1Acute right lower lobe aspiration pneumonia in a patient with history of dysphagia, and history of bulbar palsy disease. 2history of multiple comorbidities including bulbar palsy disease, chronic dysphagia, chronic aspiration, history of left vocal cord paralysis, history of multiple myeloma, history of Phillips esophagus, history of previous CVA, history of rheumatoid arthritis, and history of severe underlying COPD. Recommendation:continue present course of bronchodilators, IV Solu-Medrol, discontinue Zithromax and Rocephin, patient will need to be placed on Zosyn, I will also recommend adding Levaquin,aspiration precautions, and will continue to follow. Patient will need to have GI and DVT prophylaxis also.prognosis is definitely guarded at this point. Time with Patient: Greater than 30
[2017-08-09] MEDS: PANTOPRAZOLE 40 MG/10 ML VIAL IVP SCH (14:26)
[2017-08-09] MEDS: methylPREDNISolone SOD SUCCI 40 MG/ML 1 ML VIAL IV SCH ×2 (14:26→23:29)
[2017-08-09] MEDS: ENOXAPARIN 40 MG/0.4 ML SYRINGE SQ SCH ×2 (14:27→14:33)
[2017-08-09] MEDS: LEVOFLOXACIN 750MG-D5W PMX 750 MG in DEXTROSE/WATER 1 150ML.BAG IVPB SCH (14:27)
[2017-08-09] MEDS ORDERED: PIPERACILLIN-TAZOBACTAM 3.375 GM in DEXTROSE/WATER 1 50ML.BAG IVPB SCH (16:00)
--- NOTE | 2017-08-09 16:34 | HP ---
HISTORY AND PHYSICAL CHIEF COMPLAINT: A 72-year-old white male with influenza A positive, cough, shortness of breath. HISTORY OF PRESENT ILLNESS: This is a 72-year-old white male with history of COPD, bulbar palsy disease for which he is seen at [facility]. He has a longstanding history of dysphagia, recurrent aspiration, dysphonia, slurred speech. He has a PEG tube in place. History of dysarthria. He became dehydrated with the flu. He came to the hospital with fever, shortness of breath, green yellow phlegm. Chest x-ray showed right lower lobe pneumonia. The patient placed on IV antibiotics, IV steroids and IV fluids and was admitted. He feels better since his admission. REVIEW OF SYSTEMS: Fourteen point review of systems negative except for as mentioned in HPI. PAST MEDICAL HISTORY: COPD, CVA, GERD, rheumatoid arthritis, esophageal dysmobility with PEG tube, blood disorder, vocal cord paralysis, [place] implant in throat, Phillips's esophagus, multiple myeloma, possible kidney disease he states, neurodegenerative disease. SURGERIES: Appendectomy, hernia repair, orthopedic surgery, tonsillectomy, nasal reduction, PEG tube placement in 2017, bunion surgery, hemorrhoidectomy, he has paralyzed vocal cords apparently. HOME MEDICINES: Include omeprazole, Minipress, aspirin, Ventolin HFA, Combivent, Claritin-D, Mucinex, Lipitor, Centrum Silver. PHYSICAL EXAMINATION: Pulse is 60s to 120s, respiratory 14-20, O2 94% to 96%, temp 97-100. CARDIOVASCULAR: S1, S2. LUNGS: Transmitted upper sounds, scattered wheeze and rhonchi. GI: PEG tube in place. VASCULAR: Normal dorsalis pedis, posterior tibial pulse. OPHTHALMOLOGIC: Pupils equal, round, reactive to light and accommodation. PSYCH: Fair mood and affect. NEUROLOGIC: Alert and orient x3. LABORATORY DATA: Sodium 133, potassium 4.5, BUN 20, creatinine 0.8, hemoglobin 12.0, white count 6.4. ASSESSMENT: 1. Chronic obstructive pulmonary disease exacerbation. 2. Right lower lobe pneumonia. 3. Aspiration pneumonia. 4. Possibly bulbar palsy disease. Continue IV is Solu-Medrol, IV antibiotics. Prognosis guarded. MMODL / IJN: [id number] /
[2017-08-09] MEDS: OSELTAMIVIR 75 MG CAP PO SCH (20:24)
[2017-08-09] MEDS ORDERED: AZITHROMYCIN 500 MG in SODIUM CHLORIDE 0.9% 250 ML IVPB SCH (23:00)
[2017-08-09] MEDS ORDERED: cefTRIAXone IN SWFI 1,000 MG/10 ML SYRINGE IVP SCH (23:00)
[2017-08-10] MEDS: ATENOLOL 25 MG TAB PO SCH ×3 (03:37→21:08)
[2017-08-10] MEDS: ENOXAPARIN 40 MG/0.4 ML SYRINGE SQ SCH (07:35)
[2017-08-10] MEDS: PANTOPRAZOLE 40 MG/10 ML VIAL IVP SCH (07:35)
[2017-08-10] MEDS: OSELTAMIVIR 75 MG CAP PO SCH ×2 (07:36→21:08)
[2017-08-10] MEDS: methylPREDNISolone SOD SUCCI 40 MG/ML 1 ML VIAL IV SCH ×3 (07:36→23:33)
[2017-08-10] MEDS: IPRATROPIUM-ALBUTEROL 3 ML NEB INHALATION SCH ×4 (08:04→19:53)
--- NOTE | 2017-08-10 08:39 | XR ---
EXAMINATION TYPE: XR chest 1V portable DATE OF EXAM: 08/10/2017 COMPARISON: 08/08/2017 HISTORY: Right lower lobe pneumonia TECHNIQUE: Single frontal view of the chest is obtained. FINDINGS: Persistent right-sided lower lobe consolidation. Left lung clear. No pneumothorax or inter stitial edema. Diffuse osteopenia and arthropathy of the shoulders. Heart size stable. IMPRESSION: Stable right lower lobe infiltrate.
[2017-08-10] MEDS: guaiFENesin SYRUP 100MG/5ML 200 MG/10 ML CUP PO PRN (08:54)
--- NOTE | 2017-08-10 10:23 | P.CRDCN ---
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 He came to hospital on the . Cardiology has been consulted because of atrial fibrillation. On his initial presentation patient was in sinus rhythm subsequently developed atrial fibrillation. At the time of my evaluation this morning he appears comfortable at rest hemodynamically stable and overall is getting better. When he first came to the hospital he was hypotensive. There is no prior cardiac history. He denies coronary artery disease hypertension diabetes congestive heart failure cardiac arrhythmia R valvular heart disease. Patient is currently on Tenormin 25 mg twice a day with better control of heart rate. I will continue this. I talked to patient about starting him on an anticoagulant understanding risks benefits he does not wish to start an anticoagulant at this time. Patient states that he bleeds easily even with an aspirin. I will check thyroid functions have not been done so far. I'm going to obtain a 2-D echo on him. Anticipate his atrial fibrillation resolving once the flu symptoms improved. Review of Systems Constitutional: Patient had fatigue tiredness and not feeling well and initial presentation Eyes: Denies blurred vision. Denies pain. Ears, nose, mouth and throat: Denies headache. Denies sore throat. Cardiovascular: Denies chest pain. Denies shortness of breath. Respiratory: Has cough with productive sputum Gastrointestinal: Denies abdominal pain. Denies diarrhea. Denies nausea. Denies vomiting. Has history of Phillips's esophagus Musculoskeletal: Denies myalgias. Integumentary: Denies pruritus. Denies rash. Neurological: Denies numbness. has weakness. Psychiatric: Denies anxiety. Denies depression. Endocrine: Denies fatigue. Denies weight change. Genitourinary: Denies burning, hematuria, frequency of urination. Hematological: No anemia or excess bleeding. 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 Gaping esophagus, barretts esophagus. EGD. 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 Nasal reduction, PEG tube placement Additional Past Anesthesia/Blood Transfusion Reaction / Comment(s): PARALYZED VOCAL CHORDS Past Psychological History: No Psychological Hx Reported Smoking Status: Former smoker Past Alcohol Use History: Occasional Past Drug Use History: None Reported Medications and Allergies Home Medications Medication Instructions Recorded Confirmed Type Omeprazole 20 mg PO BID 07/31/14 08/09/17 History Prazosin [Minipress] 1 mg PO HS 07/31/14 08/09/17 History Aspirin 81 mg PO HS 08/03/14 08/09/17 History Albuterol Inhaler [Ventolin Hfa 2 puff INHALATION RT-Q6H PRN 05/01/17 08/09/17 History Inhaler] Ipratropium/Albuterol Sulfate 1 puff INHALATION RT-QID 05/01/17 08/09/17 History [Combivent Respimat Inhaler] Loratadine-Pseudoeph 10-240 mg 1 tab PO HS 05/01/17 08/09/17 History [Claritin-D 24 Hour] guaiFENesin [Mucinex] 600 mg PO BID 05/01/17 08/09/17 History Atorvastatin [Lipitor] 40 mg PO HS #30 tab 05/06/17 08/09/17 Rx Multivit-Min/FA/Lycopen/Lutein 1 tab PO DAILY 08/09/17 08/09/17 History [Centrum Silver Men Tablet] Allergies Allergy/AdvReac Type Severity Reaction Status Date / Time Sulfa (Sulfonamide Allergy Rash/Hives Verified 08/09/17 08:18 Antibiotics) Physical Exam Vitals: Vital Signs Temp Pulse Pulse Pulse Resp BP BP 08/10/17 08:16 84 16 08/10/17 08:04 82 16 08/10/17 07:00 97.8 F 74 16 128/58 08/10/17 00:00 121 H 08/09/17 23:00 98.4 F 121 H 16 109/68 08/09/17 20:45 74 08/09/17 20:32 75 08/09/17 16:12 70 08/09/17 15:58 70 08/09/17 15:00 99.5 F 124 H 16 121/83 08/09/17 12:18 120 H 14 95/61 08/09/17 11:10 74 08/09/17 10:57 70 Pulse Ox 08/10/17 08:16 08/10/17 08:04 08/10/17 07:00 97 08/10/17 00:00 08/09/17 23:00 95 08/09/17 20:45 08/09/17 20:32 08/09/17 16:12 08/09/17 15:58 08/09/17 15:00 98 08/09/17 12:18 96 08/09/17 11:10 08/09/17 10:57 Intake and Output 08/09/17 08/10/17 08/10/17 22:59 06:59 14:59 Intake Total 1440 480 Balance 1440 480 Intake: Tube Feeding 1440 480 Other: Voiding Method Toilet Toilet # Voids 1 # Bowel Movements 1 General: The patient is awake and alert, in no distress, and does not appear acutely ill. Skin: Skin is warm and dry and no rashes or lesions are noted. Eye: Pupils are equal, round and reactive to light, extra-ocular movements are intact; there is normal conjunctiva bilaterally. Ears, nose, mouth and throat: There are moist mucous membranes and no oral lesions. Neck: The neck is supple, there is no tenderness or JVD. Cardiovascular: Irregular No murmur, rub or gallop is appreciated. Respiratory: Diminished air entry with occasional rhonchi bilaterally Gastrointestinal: Soft, non-distended, non-tender abdomen without masses or organomegaly noted. There is no rebound or guarding present. Bowel sounds are unremarkable. Back: There is no tenderness to palpation in the midline. There is no obvious deformity. Musculoskeletal: Normal ROM, no tenderness, There is no pedal edema. There is no calf tenderness or swelling. Extremities: No edema. Vascular: Femoral pulse is normal. Posterior tibial pulses are normal .Dorsalis pedis is palpable. Neurological: CN II-XII intact. There are no obvious motor or sensory deficits. Speech is normal. Psychiatric: Cooperative, appropriate mood & affect, normal judgment. Results 08/08/17 21:50 08/08/17 21:50 Current Medications Generic Name Dose Route Start Last Admin Trade Name Freq PRN Reason Stop Dose Admin Albuterol/Ipratropium 3 ml 08/09/17 00:30 Duoneb 0.5 Mg-3 Mg/3 Ml Soln INHALATION RT-Q4H PRN Shortness Of Breath Or Wheezing Albuterol/Ipratropium 3 ml 08/09/17 08:00 08/10/17 08:04 Duoneb 0.5 Mg-3 Mg/3 Ml Soln INHALATION 3 ml RT-QID MARILYN Administration Atenolol 25 mg 08/10/17 02:59 08/10/17 07:36 Tenormin PO 25 mg BID MARILYN Administration Enoxaparin Sodium 40 mg 08/09/17 13:00 08/10/17 07:35 Lovenox SQ 40 mg DAILY MARILYN Administration Guaifenesin 200 mg 08/09/17 02:52 08/10/17 08:54 Robitussin PO 200 mg Q4H PRN Administration Cough Acetaminophen 1,000 mg/ IV 100 mls @ 400 mls/hr 08/09/17 03:00 08/09/17 03:59 Solution IVPB 400 mls/hr Q4H PRN Administration Fever and/ or Pain Levofloxacin 750 mg/ IV 150 mls @ 100 mls/hr 08/09/17 13:00 08/09/17 14:27 Solution IVPB 100 mls/hr Q24H MARILYN Administration Methylprednisolone Sodium Succinate 40 mg 08/09/17 16:00 08/10/17 07:36 Solu-Medrol IV 40 mg Q8HR MARILYN Administration Oseltamivir Phosphate 75 mg 08/09/17 21:00 08/10/17 07:36 Tamiflu PO 08/14/17 09:01 75 mg Q12HR MARILYN Administration Pantoprazole Sodium 40 mg 08/09/17 13:00 08/10/17 07:35 Protonix IVP 40 mg DAILY MARILYN Administration Intake and Output 08/09/17 08/10/17 08/10/17 22:59 06:59 14:59 Intake Total 1440 480 Balance 1440 480 Intake: Tube Feeding 1440 480 Other: Voiding Method Toilet Toilet # Voids 1 # Bowel Movements 1 08/08/17 21:50 08/08/17 21:50 EKG Interpretations (text) Atrial fibrillation with nonspecific ST-T wave changes D she'll EKG showed normal sinus rhythm with baseline artifact Assessment and Plan Plan: Persistent atrial fibrillation New onset probably related to the influenza patient will not be started on anticoagulants as per his wishes I will obtain a 2-D echo I will treat him with beta blockers Anticipate his getting better once the influenza improves
--- NOTE | 2017-08-10 12:21 | P.CONS ---
History of Present Illness - Reason for Consult Consult date: 08/10/17 Reaction to Zosyn - History of Present Illness This is a 72-year-old male who has history of COPD and undergoing diagnostic workup in [facility] for bulbar palsy. He states his next visit is on August 18 when he is having genetic testing done. He has had a long-standing history of dysphagia, recurrent episodes of aspiration, dysphonia and slurred speech and dysarthria. Patient has had a PEG tube placed due to history of aspiration and this is his only source of nutrition. He receives 3 meals per day +2 servings after each of water. Patient states that on Thursday he did not get any sleep and on Thursday he was sleeping all day was feeling weak, disoriented and he couldn't stand up. Patient usually uses a cane for ambulation. 911 was called and he came into [facility] by ambulance for further evaluation. CAT scan of the brain showed cerebral atrophy and mild chronic small vessel ischemic changes. No acute intracranial process. New mid right maxillary sinusitis. He had a temperature of 101.7 but denies feeling he had fever, chills or rigors at home. He was tachycardic with hypotension. White count was 6.4. Creatinine 0.8. Urinalysis was cloudy, nitrate and leukoesterase negative, bacteria rare. Albumin 3.6. Blood culture showing no growth at 24 hours. Influenza testing positive for A. chest x-ray shows stable right lower lobe infiltrate. patient was started on IV Tylenol, Levaquin and Solu-Medrol. He was admitted to the [facility] floor and has been seen in consultation by Dr. Burton for right lower lobe pneumonia. Cardiology is also on consult for new onset atrial fibrillation with RVR. Patient does not have oxygen at home. He denies shortness of breath. He did have a little diarrhea or loose stool yesterday and this morning. He denies any dysuria. Patient does voice concern that he has not been resumed on Flomax. Regarding the reaction to Zosyn. Patient states that he developed a picky feeling in his hands and feet immediately when the Zosyn started infusing. He called the nurse back to his bedside even before she could get to the desk. He denies having any rash or increased shortness of breath, swelling. Review of Systems All systems: negative Constitutional: Reports chills, Reports fatigue, Reports fever, Reports malaise , Reports weakness Eyes: denies blurred vision, denies pain Ears, nose, mouth and throat: Reports mouth pain, Denies dental pain, Denies headache, Denies sore throat Cardiovascular: Reports shortness of breath, Denies chest pain, Denies edema, Denies leg edema, Denies lightheadedness, Denies syncope Respiratory: Reports cough, Reports dyspnea, Denies excessive sputum, Denies hemoptysis, Denies home oxygen Gastrointestinal: Reports diarrhea, Denies abdominal pain, Denies nausea, Denies vomiting Genitourinary: Denies dysuria Musculoskeletal: Reports muscle weakness, Denies myalgias Integumentary: Denies pruritus, Denies rash Neurological: Denies numbness, Denies weakness Psychiatric: Denies anxiety, Denies depression Endocrine: Denies fatigue, Denies weight change Past Medical History Past Medical History: Blood Disorder, COPD, CVA/TIA, GERD/Reflux, Rheumatoid Arthritis (RA) Additional Past Medical History / Comment(s): DYSPHAGIA, ASPIRATION PRECAUTIONS , 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 Gaping esophagus, barretts esophagus. EGD. 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 Nasal reduction, PEG tube placement , local cord surgery Additional Past Anesthesia/Blood Transfusion Reaction / Comm: PARALYZED VOCAL CHORDS Past Psychological History: No Psychological Hx Reported Smoking Status: Former smoker Past Alcohol Use History: Occasional Additional Past Alcohol Use History / Comment(s): Patient was a smoker for 10 years and quit in 1971. He lives at home with his . 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 He uses a cane for ambulation. Past Drug Use History: None Reported Medications and Allergies Home Medications Medication Instructions Recorded Confirmed Type Omeprazole 20 mg PO BID 07/31/14 08/09/17 History Prazosin [Minipress] 1 mg PO HS 07/31/14 08/09/17 History Aspirin 81 mg PO HS 08/03/14 08/09/17 History Albuterol Inhaler [Ventolin Hfa 2 puff INHALATION RT-Q6H PRN 05/01/17 08/09/17 History Inhaler] Ipratropium/Albuterol Sulfate 1 puff INHALATION RT-QID 05/01/17 08/09/17 History [Combivent Respimat Inhaler] Loratadine-Pseudoeph 10-240 mg 1 tab PO HS 05/01/17 08/09/17 History [Claritin-D 24 Hour] guaiFENesin [Mucinex] 600 mg PO BID 05/01/17 08/09/17 History Atorvastatin [Lipitor] 40 mg PO HS #30 tab 05/06/17 08/09/17 Rx Multivit-Min/FA/Lycopen/Lutein 1 tab PO DAILY 08/09/17 08/09/17 History [Centrum Silver Men Tablet] Allergies Allergy/AdvReac Type Severity Reaction Status Date / Time Sulfa (Sulfonamide Allergy Rash/Hives Verified 08/09/17 08:18 Antibiotics) Physical Exam Vitals: Vital Signs Temp Pulse Pulse Pulse Resp BP BP 08/10/17 08:16 84 16 08/10/17 08:04 82 16 08/10/17 07:00 97.8 F 74 16 128/58 08/10/17 00:00 121 H 08/09/17 23:00 98.4 F 121 H 16 109/68 08/09/17 20:45 74 08/09/17 20:32 75 08/09/17 16:12 70 08/09/17 15:58 70 08/09/17 15:00 99.5 F 124 H 16 121/83 08/09/17 12:18 120 H 14 95/61 Pulse Ox 08/10/17 08:16 08/10/17 08:04 08/10/17 07:00 97 08/10/17 00:00 08/09/17 23:00 95 08/09/17 20:45 08/09/17 20:32 08/09/17 16:12 08/09/17 15:58 08/09/17 15:00 98 08/09/17 12:18 96 Intake and Output 08/09/17 08/10/17 08/10/17 22:59 06:59 14:59 Intake Total 1440 480 Balance 1440 480 Intake: Tube Feeding 1440 480 Other: Voiding Method Toilet Toilet # Voids 1 # Bowel Movements 1 Gen: This is a thin 72-year-old male. He is sitting up in bed and appears to be in no acute distress. No respiratory distress is noted. HEENT: Head is atraumatic, normocephalic. Pupils equal, round. Sclerae is anicteric. Conjunctiva pink. Mucous membranes of the mouth are dry. Tongue is noted to have a crack in the center. NECK: Supple. No JVD. No lymphadenopathy. No thyromegaly. LUNGS: Crackles noted to bilateral bases. No intercostal retractions. HEART: Irregular rate and rhythm. No murmur. ABDOMEN: Soft. Bowel sounds are present. No masses. No tenderness. PEG tube in place. EXTREMITIES: No pedal edema. No calf tenderness. Dorsalis pedis +2 bilaterally. NEUROLOGICAL: Patient is awake, alert and oriented x3. Dysphonia and dysarthria noted.. Results Results: Laboratory Results WBC 6.4 k/uL (3.8-10.6) 08/08/17 21:50 RBC 3.47 m/uL (4.30-5.90) L 08/08/17 21:50 Hgb 12.0 gm/dL (13.0-17.5) L 08/08/17 21:50 Hct 36.6 % (39.0-53.0) L 08/08/17 21:50 MCV 105.5 fL (80.0-100.0) H 08/08/17 21:50 MCH 34.6 pg (25.0-35.0) 08/08/17 21:50 MCHC 32.8 g/dL (31.0-37.0) 08/08/17 21:50 RDW 14.1 % (11.5-15.5) 08/08/17 21:50 Plt Count 161 k/uL (150-450) 08/08/17 21:50 Neutrophils % 81 % 08/08/17 21:50 Lymphocytes % 14 % 08/08/17 21:50 Monocytes % 3 % 08/08/17 21:50 Eosinophils % 1 % 08/08/17 21:50 Basophils % 1 % 08/08/17 21:50 Neutrophils # 5.1 k/uL (1.3-7.7) 08/08/17 21:50 Lymphocytes # 0.9 k/uL (1.0-4.8) L 08/08/17 21:50 Monocytes # 0.2 k/uL (0-1.0) 08/08/17 21:50 Eosinophils # 0.1 k/uL (0-0.7) 08/08/17 21:50 Basophils # 0.0 k/uL (0-0.2) 08/08/17 21:50 Macrocytosis Moderate 08/08/17 21:50 PT 10.5 sec (9.0-12.0) 08/08/17 21:50 INR 1.1 (<1.2) 08/08/17 21:50 APTT 24.7 sec (22.0-30.0) 08/08/17 21:50 Sodium 133 mmol/L (137-145) L 08/08/17 21:50 Potassium 4.5 mmol/L (3.5-5.1) 08/08/17 21:50 Chloride 95 mmol/L (98-107) L 08/08/17 21:50 Carbon Dioxide 32 mmol/L (22-30) H 08/08/17 21:50 Anion Gap 6 mmol/L 08/08/17 21:50 BUN 20 mg/dL (9-20) 08/08/17 21:50 Creatinine 0.80 mg/dL (0.66-1.25) 08/08/17 21:50 Est GFR (MDRD) Af Amer >60 (>60 ml/min/1.73 sqM) 08/08/17 21:50 Est GFR (MDRD) Non-Af >60 (>60 ml/min/1.73 sqM) 08/08/17 21:50 Glucose 136 mg/dL (74-99) H 08/08/17 21:50 Plasma Lactic Acid Cristian 1.9 mmol/L (0.7-2.0) 08/08/17 21:50 Calcium 8.8 mg/dL (8.4-10.2) 08/08/17 21:50 Magnesium 1.8 mg/dL (1.6-2.3) 08/08/17 21:50 Total Bilirubin 0.6 mg/dL (0.2-1.3) 08/08/17 21:50 AST 53 U/L (17-59) 08/08/17 21:50 ALT 59 U/L (21-72) 08/08/17 21:50 Alkaline Phosphatase 80 U/L (38-126) 08/08/17 21:50 Total Creatine Kinase 149 U/L (55-170) 08/08/17 21:50 CK-MB (CK-2) 1.2 ng/mL (0.0-2.4) 08/08/17 21:50 CK-MB (CK-2) Rel Index 0.8 08/08/17 21:50 Troponin I <0.012 ng/mL (0.000-0.034) 08/08/17 21:50 Total Protein 7.3 g/dL (6.3-8.2) 08/08/17 21:50 Albumin 3.6 g/dL (3.5-5.0) 08/08/17 21:50 Urine Color Yellow 08/08/17 22:22 Urine Appearance Cloudy (Clear) 08/08/17 22:22 Urine pH 7.5 (5.0-8.0) 08/08/17 22:22 Ur Specific [place] 1.015 (1.001-1.035) 08/08/17 22:22 Urine Protein 1+ (Negative) H 08/08/17 22:22 Urine Glucose (UA) Negative (Negative) 08/08/17 22:22 Urine Ketones Negative (Negative) 08/08/17 22:22 Urine Blood Negative (Negative) 08/08/17 22:22 Urine Nitrite Negative (Negative) 08/08/17 22:22 Urine Bilirubin Negative (Negative) 08/08/17 22:22 Urine Urobilinogen 4.0 mg/dL (<2.0) 08/08/17 22:22 Ur Leukocyte Esterase Negative (Negative) 08/08/17 22:22 Urine RBC 1 /hpf (0-5) 08/08/17 22:22 Urine WBC 3 /hpf (0-5) 08/08/17 22:22 Ur Squamous Epith Cells <1 /hpf (0-4) 08/08/17 22:22 Amorphous Sediment Rare /hpf (None) H 08/08/17 22:22 Urine Bacteria Rare /hpf (None) H 08/08/17 22:22 Hyaline Casts 76 /lpf (0-2) H 08/08/17 22:22 Urine Mucus Few /hpf (None) H 08/08/17 22:22 Influenza Type A RNA Detected (Not Detectd) H 08/08/17 22:15 Influenza Type B (PCR) Not Detected (Not Detectd) 08/08/17 22:15 CBC & Chem 7: 08/08/17 21:50 08/08/17 21:50 Labs: Microbiology - Last 24 Hours (Table) 08/08/17 21:50 Blood Culture - Preliminary Blood No Growth after 24 hours Assessment and Plan Plan: This is a 72-year-old male patient presented to the hospital with signs of sepsis, influenza and right lower lobe pneumonia. Patient has been started on Tamiflu and is in isolation. Blood culture is showing no growth at 48 hours. Patient is also on Levaquin. There is concern the patient reaction to Zosyn for he developed a picky feeling in his hands and feet at the time the confusion started but did not have any rash, swelling, shortness of breath. Continue supportive care. Further recommendations as patient progresses. The above dictated assessment and findings were discussed with Dr. Sahu. The impression and plan of care have been directed as dictated. Bridget Valdez nurse practitioner acting as scribe for Dr. Sahu.
[2017-08-10] MEDS: LEVOFLOXACIN 750MG-D5W PMX 750 MG in DEXTROSE/WATER 1 150ML.BAG IVPB SCH (12:23)
--- NOTE | 2017-08-10 15:47 | P.PN ---
Subjective Progress Note Date: 08/10/17 Principal diagnosis: Acute right lower lobe aspiration pneumonia, influenza A positive this is a 72-year-old white male with history of multiple medical problems including severe COPD for which she sees Dr. Magdaleno on a regular basis. History of bulbar palsy disease,patient is still undergoing diagnostic workup at the [facility] for his bulbar palsy,but it is almost confirmed that this is what he truly has. Patient had long-standing history of dysphagia , recurrent episodes of aspiration, dysphonia and slurred speech, and history of dysarthria. No history of tongue fasciculations.patient also had previous history of CVA which may have been a contributing factor to his bulbar palsy.considering his previous history of aspiration, patient had a PEG tube placement, and he is only fed via PEG tube. Today the patient presented to the ER with mostly symptoms of cough, fever, shortness of breath. Cough was described as productive with thick yellow greenish phlegm. Chest x-ray showed evidence of right lower lobe pneumonia hence the patient was admitted, and this consult was initiated. Patient denies any headaches, no blurred vision, no dizziness, he does have symptoms of bulbar palsy as noted above. He has pulmonary symptoms as noted above. Had difficulty swallowing as noted above. Uses his PEG tube a regular basis. Denies any dysuria frequency urgency or hematuria, no aches and pains. On day 10/08/2017 patient seen in follow-up on medical surgical floor. Denies any acute distress. Remains on 2 L per nasal cannula with O2 sat at 97%. Afebrile, hemodynamically stable. Denies any worsening shortness of breath. X- ray from today shows cyst and right-sided lower lobe consolidation, left lung was clear, maybe a small improvement noted on the chest x-ray. Lung sounds are positive for a few scattered rhonchi over left lower lobe. Blood culture shows no growth at the 24-hour channing. No new lab work today. Patient's influenza screen was positive for influenza a, patient's currently on Tamiflu and Levaquin , azithromycin and Rocephin were discontinued. Overall continues to improve Objective - Vital Signs Vital signs: Vital Signs Temp 97.8 F 08/10/17 07:00 Pulse 82 08/10/17 11:56 Resp 16 08/10/17 11:56 BP 128/58 08/10/17 07:00 Pulse Ox 97 08/10/17 07:00 Intake & Output 08/09/17 08/10/17 08/10/17 18:59 06:59 18:59 Intake Total 4320 960 Balance 4320 960 Weight 62.369 kg 62.737 kg Intake: Tube Feeding 4320 960 Other: Voiding Method Toilet Toilet Toilet # Voids 1 # Bowel Movements 1 - Exam General appearance: alert, cachectic, in no form of respiratory distress. Head exam: Present: atraumatic, normocephalic Eye exam:PERRLA, EOMI, ENT exam: neck supple no neck masses no thyromegaly. No stridor noted. Neck exam: Present: normal inspection. Absent: tenderness, meningismus. No cervical lymphadenopathy noted. Respiratory exam: Generally diminished with a few scattered rhonchi at the lower lobe, no wheezes, no rales Cardiovascular Exam: Present: regular rate, normal rhythm GI/Abdominal exam: Present: soft. Absent: distended, tenderness. PEG tube is noted. No areas of erythema or cellulitis around the PEG tube. Extremities exam: Present: normal inspection, normal capillary refill. Absent: pedal edema Back exam: Present: normal inspection, full ROM. Absent: tenderness Neurological exam: no gross focal neurologic deficit, however the patient is noted to have difficulty with his speech, dysphonia is noted, dysarthria is noted, no evidence of fasciculations. Psychiatric exam: normal mood affect and normal mental status examination noted. Skin exam: no evidence of rashes erythema, and no cyanosis. - Labs CBC & Chem 7: 08/08/17 21:50 08/08/17 21:50 Labs: Microbiology - Last 24 Hours (Table) 08/08/17 21:50 Blood Culture - Preliminary Blood No Growth after 24 hours Assessment and Plan Plan: Assessment: 1 Acute right lower lobe aspiration pneumonia in a patient with history of dysphagia, and history of bulbar palsy disease. Empirically covered with Levaquin, Zithromax and Rocephin had been discontinued 2 Acute influenza A, patient was initiated on Tamiflu 3 history of multiple comorbidities including bulbar palsy disease, chronic dysphagia, chronic aspiration, history of left vocal cord paralysis, history of multiple myeloma, history of Phillips esophagus, history of previous CVA, history of rheumatoid arthritis, and history of severe underlying COPD. Recommendation: Continue bronchodilators, she was started on Zosyn last night, unfortunately he developed a reaction to it, with itching and rash. This was discontinued, patient was started on Levaquin. Continue Tamiflu continue with the rest of the medical treatments. I performed a history & physical examination of the patient and discussed their management with my nurse practitioner, Carol Key. I reviewed the nurse practitioner's note and agree with the documented findings and plan of care. Lung sounds are positive for a few scattered rhonchi at the left lower base. The findings and the impression was discussed with the patient. I attest to the documentation by the nurse practitioner. Time with Patient: Less than 30
--- NOTE | 2017-08-10 16:13 | CDI ---
Last Revision, June 2017 Documentation Clarification Form Date: 08/10/2017 3:11:00 PM From: Shauna Apodaca Admit Date: 08/08/2017 12:11:00 AM Patient Name: Sharri Ma Visit Number: [id number] ATTENTION: The Clinical Documentation Specialists (CDI) and [facility] Coding Staff appreciate your assistance in clarifying documentation. Please respond to the clarification below the line at the bottom and electronically sign. The CDI & [facility] Coding staff will review the response and follow-up if needed. Please note: Queries are made part of the Legal Health Record. If you have any questions, please contact the author of this message via ITS. Dr. Aaron Del Rosario, History/Risk factors: Blood disorder, cancer with chemo, copd, OA, SZ., thyroid disorder, B-12 Anemia presented to hospital with fever pericardial effusion present Clinical Indicators: Labs on admission: TOTAL PROTEIN 5.6, ALBUMIN 3.1, B12 294. labs 08/10: total protein 4.8, albumin 2.5 current BMI: 21.8 Treatment: Consults: Dr. Mantilla, Cardiothoracic surgery , Dr Sahu, Dr Arrington IV fluids with bolus x1 Lab monitoring Social Work Consult In your professional opinion, can you please specify: Mild Protein Malnutrition Mild Protein-Calorie Malnutrition Moderate Protein Malnutrition Moderate Protein-Calorie Malnutrition Other condition, please specify Unable to determine Please continue to document in your progress notes and discharge summary in order to capture severity of illness and risk of mortality. Include clinical findings that support your diagnosis. MTDD
--- NOTE | 2017-08-10 20:43 | P.PN ---
Subjective Progress Note Date: 08/10/17 Principal diagnosis: Influenza This is a 72-year-old male who has history of COPD and undergoing diagnostic workup in [facility] for bulbar palsy. He states his next visit is on August 18 when he is having genetic testing done. He has had a long-standing history of dysphagia, recurrent episodes of aspiration, dysphonia and slurred speech and dysarthria. Patient has had a PEG tube placed due to history of aspiration and this is his only source of nutrition. He receives 3 meals per day +2 servings after each of water. Patient states that on Thursday he did not get any sleep and on Thursday he was sleeping all day was feeling weak, disoriented and he couldn't stand up. Patient usually uses a cane for ambulation. 911 was called and he came into [facility] emergency center by ambulance for further evaluation. CAT scan of the brain showed cerebral atrophy and mild chronic small vessel ischemic changes. No acute intracranial process. New mid right maxillary sinusitis. He had a temperature of 101.7 but denies feeling he had fever, chills or rigors at home. He was tachycardic with hypotension. White count was 6.4. Creatinine 0.8. Urinalysis was cloudy, nitrate and leukoesterase negative, bacteria rare. Albumin 3.6. Blood culture showing no growth at 24 hours. Influenza testing positive for A. chest x-ray shows stable right lower lobe infiltrate. patient was started on IV Tylenol, Levaquin and Solu-Medrol. He was admitted to the [facility] floor and has been seen in consultation by Dr. Burton for right lower lobe pneumonia. Cardiology is also on consult for new onset atrial fibrillation with RVR. Patient does not have oxygen at home. He denies shortness of breath. He did have a little diarrhea or loose stool yesterday and this morning. He denies any dysuria. Patient does voice concern that he has not been resumed on Flomax. Regarding the reaction to Zosyn. Patient states that he developed a picky feeling in his hands and feet immediately when the Zosyn started infusing. He called the nurse back to his bedside even before she could get to the desk. He denies having any rash or increased shortness of breath, swelling. Please see the consult note is dictated by nurse practitioner Mrs. Bridget Valdez. Pleasant 72-year-old gentleman who's been having significant neurological disease under workup for diagnosis of bulbar palsy is developed a significant respiratory infection. Influenza A has been found. Receiving Tamiflu. Patient has many grandchildren who have been ill as is his . He does go to [employer] and has exposure the general public. Patient appears to have had a reaction to piperacillin tazobactam. His been stopped and is doing well this time. Secondary pneumonia which is of concern is being treated with the levofloxacin which is adequate at this time. Patient does have great difficulties but no perry aspiration has been noted as of late. Avoidance of Zosyn in the future. Fortunately is improving at this point in time. We'll complete the entire course of Tamiflu for his influenza A. I agree with evaluation, assessment and plan as dictated by nurse practitioner Mrs. Bridget Valdez. Objective - Vital Signs Vital signs: Vital Signs Temp 98.3 F 08/10/17 15:00 Pulse 80 08/10/17 20:12 Resp 16 08/10/17 15:00 BP 122/69 08/10/17 15:00 Pulse Ox 96 08/10/17 16:03 Intake & Output 08/10/17 08/10/17 08/11/17 06:59 18:59 06:59 Intake Total 960 Balance 960 Weight 62.737 kg Intake: Tube Feeding 960 Other: Voiding Method Toilet Toilet # Voids 1 # Bowel Movements 1 - Labs CBC & Chem 7: 08/08/17 21:50 08/08/17 21:50 Labs: Microbiology - Last 24 Hours (Table) 08/08/17 21:50 Blood Culture - Preliminary Blood No Growth after 24 hours
[2017-08-10] MEDS ORDERED: IBUPROFEN 400 MG TAB PO PRN (20:53)
[2017-08-10] MEDS ORDERED: PRAZOSIN 1 MG CAP PO SCH (21:00)
[2017-08-10 23:07] VITALS: RESP 17
[2017-08-11] MEDS: IPRATROPIUM-ALBUTEROL 3 ML NEB INHALATION SCH ×2 (07:40→11:34)
[2017-08-11 07:47] VITALS: TEMP 97.6
--- NOTE | 2017-08-11 09:21 | CDI ---
Last Revision, June 2017 Documentation Clarification Form Date: 08/10/2017 4:01:00 PM From: Shauna Apodaca RN Admit Date: 08/09/2017 12:34:00 AM Patient Name: Kae Ferro Visit Number: [id number] ATTENTION: The Clinical Documentation Specialists (CDI) and [facility] Coding Staff appreciate your assistance in clarifying documentation. Please respond to the clarification below the line at the bottom and electronically sign. The CDI & [facility] Coding staff will review the response and follow-up if needed. Please note: Queries are made part of the Legal Health Record. If you have any questions, please contact the author of this message via ITS. Dr. Jovani Oglesby Patient has been described as cachectic by pulmonary on 08/10 and the ED physician on 08/08. History/Risk Factors: pneumonia, dysphagia, recurrent aspiration, copd, peg tube, bulbar palsy disease, vocal cord paralysis, gerd, cva, barretts esophagus, multiple myeloma Clinical Indicators: Patients weight is 62.73 kg Patients height is 5f 10in Calculated BMI is 19.8 ID is reporting muscle weakness on 08/10 Treatments: Daily weights Dietary Consult Tube Feeding Dietitian to order With patient BMI of 19.8 , a clinical diagnoses needs to be documented by the physician. Please clarify: Emaciated Cachexia Underweight Other please specify Unable to determine Please continue to document in your progress notes and discharge summary in order to capture severity of illness and risk of mortality. Include clinical findings that support your diagnosis. MTDD
[2017-08-11] MEDS: methylPREDNISolone SOD SUCCI 40 MG/ML 1 ML VIAL IV SCH (09:25)
[2017-08-11] MEDS: ATENOLOL 25 MG TAB PO SCH (09:27)
[2017-08-11] MEDS: ENOXAPARIN 40 MG/0.4 ML SYRINGE SQ SCH (09:27)
[2017-08-11] MEDS: OSELTAMIVIR 75 MG CAP PO SCH (09:27)
[2017-08-11] MEDS: PANTOPRAZOLE 40 MG/10 ML VIAL IVP SCH (09:28)
--- NOTE | 2017-08-11 10:33 | ECHOF ---
Referral Reason:a-fib MEASUREMENTS -------- HEIGHT: 177.8 cm WEIGHT: 62.1 kg BP: 128/58 IVSd: 1.3 cm (0.6 - 1.1) LVIDd: 4.4 cm (3.9 - 5.3) LVPWd: 1.3 cm (0.6 - 1.1) IVSs: 1.6 cm LVIDs: 2.6 cm LVPWs: 1.6 cm LAESV Index (A-L): 45.76 ml/m Ao Diam: 3.2 cm (2.0 - 3.7) AV Cusp: 1.5 cm (1.5 - 2.6) LA Diam: 2.8 cm (2.7 - 3.8) RAP: 5.00 mmHg RVSP: 42.67 mmHg FINDINGS -------- Atrial fibrillation. This was a technically good study. No subcostals due to feeding tube. The left ventricular size is normal. There is mild concentric left ventricular hypertrophy. Overa ll left ventricular systolic function is normal with, an EF between 60 - 65 %. The right ventricle is normal in size and function. LA is severely dilated >40 ml/m2 RA appears enlarged. Aortic valve is trileaflet and is mildly thickened. There is no evidence of aortic regurgitation. There is no evidence of aortic stenosis. The mitral valve leaflets are mildly thickened. Moderate mitral regurgitation is present. Moderate tricuspid regurgitation present. There is mild pulmonary hypertension. The right ventric ular systolic pressure, as measured by Doppler, is 42.67mmHg. The pulmonic valve was not well visualized. The aortic root size is normal. IVC Not well visulized. The pericardium is normal. There is no pericardial effusion. CONCLUSIONS -------- 1. Atrial fibrillation. 2. This was a technically good study. 3. No subcostals due to feeding tube. 4. The left ventricular size is normal. 5. There is mild concentric left ventricular hypertrophy. 6. Overall left ventricular systolic function is normal with, an EF between 60 - 65 %. 7. LA is severely dilated >40 ml/m2 8. RA appears enlarged. 9. Aortic valve is trileaflet and is mildly thickened. 10. The mitral valve leaflets are mildly thickened. 11. Moderate mitral regurgitation is present. 12. Moderate tricuspid regurgitation present. 13. There is mild pulmonary hypertension. 14. The right ventricular systolic pressure, as measured by Doppler, is 42.67mmHg. 15. The pulmonic valve was not well visualized. 16. The aortic root size is normal. 17. IVC Not well visulized. 18. There is no pericardial effusion. PIPE COVERER: Nithin Shepard RDCS
--- NOTE | 2017-08-11 10:59 | P.PN ---
Subjective Progress Note Date: 08/11/17 Principal diagnosis: Acute right lower lobe aspiration pneumonia, influenza A positive this is a 72-year-old white male with history of multiple medical problems including severe COPD for which she sees Dr. Magdaleno on a regular basis. History of bulbar palsy disease,patient is still undergoing diagnostic workup at the [facility] for his bulbar palsy,but it is almost confirmed that this is what he truly has. Patient had long-standing history of dysphagia , recurrent episodes of aspiration, dysphonia and slurred speech, and history of dysarthria. No history of tongue fasciculations.patient also had previous history of CVA which may have been a contributing factor to his bulbar palsy.considering his previous history of aspiration, patient had a PEG tube placement, and he is only fed via PEG tube. Today the patient presented to the ER with mostly symptoms of cough, fever, shortness of breath. Cough was described as productive with thick yellow greenish phlegm. Chest x-ray showed evidence of right lower lobe pneumonia hence the patient was admitted, and this consult was initiated. Patient denies any headaches, no blurred vision, no dizziness, he does have symptoms of bulbar palsy as noted above. He has pulmonary symptoms as noted above. Had difficulty swallowing as noted above. Uses his PEG tube a regular basis. Denies any dysuria frequency urgency or hematuria, no aches and pains. On day 10/08/2017 patient seen in follow-up on medical surgical floor. Denies any acute distress. Remains on 2 L per nasal cannula with O2 sat at 97%. Afebrile, hemodynamically stable. Denies any worsening shortness of breath. X- ray from today shows cyst and right-sided lower lobe consolidation, left lung was clear, maybe a small improvement noted on the chest x-ray. Lung sounds are positive for a few scattered rhonchi over left lower lobe. Blood culture shows no growth at the 24-hour channing. No new lab work today. Patient's influenza screen was positive for influenza a, patient's currently on Tamiflu and Levaquin , azithromycin and Rocephin were discontinued. Overall continues to improve On 08/11/2017 patient seen again in follow-up. Doing well, no signs of any distress.remains on room air, denies any dyspnea. Vital signs are stable. Lung sounds are positive for a few scattered rhonchi at the lateral bases, patient is occasionally able to bring up some sputum. He states occasionally it is slightly blood-tinged, thinks it's from the dry nasal passages which have some intermittent bleeding. But he states the amount is very small. Blood culture remains negative at the 48 hour channing. No new lab work or chest x-ray today. Patient clinically continues to improve, requesting to go home today. Objective - Vital Signs Vital signs: Vital Signs Temp 97.6 F 08/11/17 07:00 Pulse 82 08/11/17 07:54 Resp 17 08/11/17 07:00 BP 142/94 08/11/17 07:00 Pulse Ox 96 08/11/17 07:00 Intake & Output 08/10/17 08/11/17 08/11/17 18:59 06:59 18:59 Intake Total 960 200 Balance 960 200 Weight 62.737 kg 62.5 kg Intake: Oral 200 Tube Feeding 960 Other: Voiding Method Toilet Toilet # Voids 3 - Exam General appearance: alert, cachectic, in no form of respiratory distress. Head exam: Present: atraumatic, normocephalic Eye exam:PERRLA, EOMI, ENT exam: neck supple no neck masses no thyromegaly. No stridor noted. Neck exam: Present: normal inspection. Absent: tenderness, meningismus. No cervical lymphadenopathy noted. Respiratory exam: Generally diminished with a few scattered rhonchi at the lower lobe, no wheezes, no rales Cardiovascular Exam: Present: regular rate, normal rhythm GI/Abdominal exam: Present: soft. Absent: distended, tenderness. PEG tube is noted. No areas of erythema or cellulitis around the PEG tube. Extremities exam: Present: normal inspection, normal capillary refill. Absent: pedal edema Back exam: Present: normal inspection, full ROM. Absent: tenderness Neurological exam: no gross focal neurologic deficit, however the patient is noted to have difficulty with his speech, dysphonia is noted, dysarthria is noted, no evidence of fasciculations. Psychiatric exam: normal mood affect and normal mental status examination noted. Skin exam: no evidence of rashes erythema, and no cyanosis. - Labs CBC & Chem 7: 08/08/17 21:50 08/08/17 21:50 Labs: Microbiology - Last 24 Hours (Table) 08/08/17 21:50 Blood Culture - Preliminary Blood No Growth after 48 hours Assessment and Plan Plan: Assessment: 1 Acute right lower lobe aspiration pneumonia in a patient with history of dysphagia, and history of bulbar palsy disease. Empirically covered with Levaquin, Zithromax and Rocephin had been discontinued 2 Acute influenza A, patient was initiated on Tamiflu 3 history of multiple comorbidities including bulbar palsy disease, chronic dysphagia, chronic aspiration, history of left vocal cord paralysis, history of multiple myeloma, history of Phillips esophagus, history of previous CVA, history of rheumatoid arthritis, and history of severe underlying COPD. Recommendation: Patient continues to improve, no acute complaints, no acute events overnight. Vital signs are stable, remains afebrile. Blood culture showed no growth. Continue outpatient course of Levaquin and Tamiflu. Prednisone taper. Patient will need a follow-up appointment with Dr. Magdaleno in the office in 7 days. Patient is stable for discharge home today. I performed a history & physical examination of the patient and discussed their management with my nurse practitioner, Carol Key. I reviewed the nurse practitioner's note and agree with the documented findings and plan of care. Lung sounds are positive for a few scattered rhonchi at the left lower base. The findings and the impression was discussed with the patient. I attest to the documentation by the nurse practitioner. Time with Patient: Less than 30
--- NOTE | 2017-08-11 11:14 | P.PN ---
Subjective Progress Note Date: 08/11/17 72-year-old gentleman with history of COPD dyslipidemia and bulbar palsey who is status post PEG tube placement comes in with symptoms of cough productive sputum not feeling well and was found to have influenza a along with pneumonia. He came to hospital on the . Cardiology has been consulted because of atrial fibrillation. On his initial presentation patient was in sinus rhythm subsequently developed atrial fibrillation. At the time of my evaluation this morning he appears comfortable at rest hemodynamically stable and overall is getting better. When he first came to the hospital he was hypotensive. There is no prior cardiac history. He denies coronary artery disease hypertension diabetes congestive heart failure cardiac arrhythmia R valvular heart disease. Patient is currently on Tenormin 25 mg twice a day with better control of heart rate. I will continue this. I talked to patient about starting him on an anticoagulant understanding risks benefits he does not wish to start an anticoagulant at this time. Patient states that he bleeds easily even with an aspirin. I will check thyroid functions have not been done so far. I'm going to obtain a 2-D echo on him. Anticipate his atrial fibrillation resolving once the flu symptoms improved. 08/11/2017 Mr. Ferro is see today in follow-up. He is currently maintaining sinus mechanism. He continues to deny chest pain, shortness of breath, palpitations or dizziness. Echocardiogram performed yesterday reveals preserved LV systolic function with EF 60-65&, severely dilated LA, enlarged RA, mildly thickened mitral valve with moderate MR, moderate TR and mild pulmonary hypertension with RVSP 42.67 mmHg. TSH 1.53. Objective - Vital Signs Vital signs: Vital Signs Temp 97.6 F 08/11/17 07:00 Pulse 82 08/11/17 07:54 Resp 17 08/11/17 07:00 BP 142/94 08/11/17 07:00 Pulse Ox 96 08/11/17 07:00 Intake & Output 08/10/17 08/11/17 08/11/17 18:59 06:59 18:59 Intake Total 960 200 Balance 960 200 Weight 62.737 kg 62.5 kg Intake: Oral 200 Tube Feeding 960 Other: Voiding Method Toilet Toilet # Voids 3 - Exam Blood pressure 142/94 heart rate 62 afebrile GENERAL: Well-appearing and in no acute distress. NECK: Supple without JVD or thyromegaly. LUNGS: Breath sounds clear to auscultation bilaterally. Respiration equal and unlabored. No wheezes, rales or rhonchi. Diminished. HEART: Regular rate and rhythm with systolic murmur at the apex, no rubs or gallops. S1 and S2 heard. EXTREMITIES: Normal range of motion, no edema. No clubbing or cyanosis. Peripheral pulses intact and strong. - Labs CBC & Chem 7: 08/08/17 21:50 08/08/17 21:50 Labs: Microbiology - Last 24 Hours (Table) 08/08/17 21:50 Blood Culture - Preliminary Blood No Growth after 48 hours Assessment and Plan Assessment: ASSESSMENT 1. New onset paroxysmal atrial fibrillation, no anticoagulation per patient request 2. Influenza A PLAN Continue with atenolol 25 mg PO BID as we previously ordered. Follow up with Holter monitor in [address] Dill in 4 weeks. We will continue to see him on an as needed basis. The above impression and plan of care have been discussed and directed by the signing physician. Mela Recio, nurse practitioner, acting as scribe for signing physician.
[2017-08-11] MEDS: LEVOFLOXACIN 750MG-D5W PMX 750 MG in DEXTROSE/WATER 1 150ML.BAG IVPB SCH (13:02)
[2017-08-11 15:29] VITALS: BP 130/78; PULSE 68
--- NOTE | 2017-08-13 13:40 | CDI ---
Last Revision, June 2017 Documentation Clarification Form Date: 08/10/2017 4:01:00 PM From: Shauna Apodaca RN Admit Date: 08/09/2017 12:34:00 AM Patient Name: Kae Ferro Visit Number: [id number] ATTENTION: The Clinical Documentation Specialists (CDI) and [facility] Coding Staff appreciate your assistance in clarifying documentation. Please respond to the clarification below the line at the bottom and electronically sign. The CDI & [facility] Coding staff will review the response and follow-up if needed. Please note: Queries are made part of the Legal Health Record. If you have any questions, please contact the author of this message via ITS. Dr. Jovani Oglesby, (Please answer at bottom of query or in an addenum) Patient has been described as cachectic by pulmonary on 08/10 and the ED physician on 08/08. History/Risk Factors: pneumonia, dysphagia, recurrent aspiration, copd, peg tube, bulbar palsy disease , vocal cord paralysis, gerd, cva, barretts esophagus, multiple myeloma Clinical Indicators: Patients weight is 62.73 kg Patients height is 5f 10in Calculated BMI is 19.8 ID is reporting muscle weakness on 08/10 Treatments: Daily weights Dietary Consult Tube Feeding Dietitian to order With patient BMI of 19.8 , a clinical diagnoses needs to be documented by the physician. Please clarify: Emaciated Cachexia Underweight Other please specify Unable to determine Please continue to document in your progress notes and discharge summary in order to capture severity of illness and risk of mortality. Include clinical findings that support your diagnosis. MTDD
--- NOTE | 2017-08-17 08:10 | CDI ---
Last Revision, June 2017 Documentation Clarification Form Date: 08/10/2017 4:01:00 PM From: Shauna Apodaca RN Admit Date: 08/09/2017 12:34:00 AM Patient Name: Kae Ferro Visit Number: [id number] ATTENTION: The Clinical Documentation Specialists (CDI) and [facility] Coding Staff appreciate your assistance in clarifying documentation. Please respond to the clarification below the line at the bottom and electronically sign. The CDI & [facility] Coding staff will review the response and follow-up if needed. Please note: Queries are made part of the Legal Health Record. If you have any questions, please contact the author of this message via ITS. Dr. Jovani Oglesby, Patient has been described as cachectic by pulmonary on 08/10 and the ED physician on 08/08. History/Risk Factors: pneumonia, dysphagia, recurrent aspiration, copd, peg tube, bulbar palsy disease, vocal cord paralysis, gerd, cva, barretts esophagus, multiple myeloma Clinical Indicators: Patients weight is 62.73 kg Patients height is 5f 10in Calculated BMI is 19.8 ID is reporting muscle weakness on 08/10 Treatments: Daily weights Dietary Consult Tube Feeding Dietitian to order With patient BMI of 19.8 , a clinical diagnoses needs to be documented by the physician. Please clarify: Emaciated Cachexia Underweight Other please specify Unable to determine Please continue to document in your progress notes and discharge summary in order to capture severity of illness and risk of mortality. Include clinical findings that support your diagnosis. MTDD
--- NOTE | 2017-09-14 00:45 | DS ---
DISCHARGE SUMMARY DATE OF ADMISSION: 08/09/2017. DATE OF DISCHARGE: 08/11/2017 MEDICATIONS: 1. Minipress 1 mg q.h.s. 2. Omeprazole 20 mg b.i.d. 3. Aspirin 81 mg daily. 4. Claritin-D 24 1 daily. 5. Mucinex 600 b.i.d. 6. Ventolin HFA inhaler 2 puffs q.6 hours p.r.n. 7. Combivent 1 puff q.i.d. 8. Tenormin 25 b.i.d. 9. Lipitor 40 mg daily. 10.Medrol Dosepak. 11.Levaquin 500 mg daily. 12.Tamiflu 75 b.i.d. CONDITION: Stable. PROGNOSIS: Guarded. Ambulate as tolerated. HOSPITAL COURSE OF EVENTS: 72-year-old female, who was admitted with cough, shortness of breath, and influenza A and found to have COPD exacerbation, right lower lobe pneumonia, aspiration pneumonia, possible bulbar palsy disease, IV steroids, IV antibiotics were given to the patient. He states cardiology saw the patient for atrial fibrillation. Had acute on chronic anemia. Patient was diagnosed with acute versus atrial fibrillation, new onset influenza. Beta blockers were given. Influenza was treated. Clearance Cutter, lehr cutter saw the patient. The patient was stabilized from medical standpoint. Infectious Disease, pulmonology saw him as well as cardiology. Follow up as outpatient. KLAUS / JESENIA: [id number] /
== END 2017-08-11 16:50 | disposition home or self-care (01) | DRG 178 ==
LOC: EC 21:01 → 4MS4W 08-09 00:34
PROVIDERS: ADMIT Family Medicine; ATTEND Family Medicine
DX: J69.0 Pneumonitis due to inhalation of food and vomit (principal); J44.1 Chronic obstructive pulmonary disease with (acute) exacerbation; I27.20 Pulmonary hypertension, unspecified; I48.0 Paroxysmal atrial fibrillation; I08.1 Rheumatic disorders of both mitral and tricuspid valves; J38.01 Paralysis of vocal cords and larynx, unilateral; R13.10 Dysphagia, unspecified; E86.0 Dehydration; J32.0 Chronic maxillary sinusitis; G83.9 Paralytic syndrome, unspecified; M06.9 Rheumatoid arthritis, unspecified; K21.9 Gastro-esophageal reflux disease without esophagitis; K22.70 Barrett's esophagus without dysplasia; J10.1 Influenza due to other identified influenza virus with other respiratory manifestations; E78.5 Hyperlipidemia, unspecified; T36.0X5A Adverse effect of penicillins, initial encounter; R47.1 Dysarthria and anarthria; Z90.49 Acquired absence of other specified parts of digestive tract; Z79.82 Long term (current) use of aspirin; Z79.899 Other long term (current) drug therapy; Z86.73 Personal history of transient ischemic attack (TIA), and cerebral infarction without residual deficits; Z93.1 Gastrostomy status; Z90.89 Acquired absence of other organs; Z87.19 Personal history of other diseases of the digestive system; Z87.891 Personal history of nicotine dependence; Z88.2 Allergy status to sulfonamides; Z85.79 Personal history of other malignant neoplasms of lymphoid, hematopoietic and related tissues
CPT/HCPCS: 36415; 70450; 71045; 71046; 80053; 81001; 82550; 82553; 83605; 83735; 84443; 84484; 85025; 85610; 85730; 87040; 87502; 93005; 93306; 94640; 94760; 96361; 96365; 96375; 99285

== ENCOUNTER 2017-08-22 08:36 | Emergency (ER) | payer MEDICARE ==
[2017-08-22] MEDS ORDERED: ACETAMINOPHEN TAB 500 MG TAB PO STA (08:54)
[2017-08-22] MEDS ORDERED: IPRATROPIUM-ALBUTEROL 3 ML NEB INHALATION STA (08:55)
--- NOTE | 2017-08-22 08:58 | ED ---
General Adult HPI - General Chief complaint: Shortness of Breath Stated complaint: SOB Time Seen by Provider: 08/22/17 08:42 Source: patient, family, EMS, RN notes reviewed Mode of arrival: EMS Limitations: no limitations - History of Present Illness Initial comments: Patient is a pleasant 72-year-old male presenting to the emergency department complaining of shortness of breath. Onset of symptoms was this morning. Patient has occasional productive cough. No fever. Patient feels much better with oxygen applied. Patient was in the hospital a week ago with pneumonia and influenza. Patient does have a history of similar symptoms previously associated with COPD. - Related Data Home Medications Medication Instructions Recorded Confirmed Omeprazole 20 mg PO BID 07/31/14 08/09/17 Prazosin [Minipress] 1 mg PO HS 07/31/14 08/09/17 Aspirin 81 mg PO HS 08/03/14 08/09/17 Albuterol Inhaler [Ventolin Hfa 2 puff INHALATION RT-Q6H PRN 05/01/17 08/09/17 Inhaler] Ipratropium/Albuterol Sulfate 1 puff INHALATION RT-QID 05/01/17 08/09/17 [Combivent Respimat Inhaler] Loratadine-Pseudoeph 10-240 mg 1 tab PO HS 05/01/17 08/09/17 [Claritin-D 24 Hour] guaiFENesin [Mucinex] 600 mg PO BID 05/01/17 08/09/17 Multivit-Min/FA/Lycopen/Lutein 1 tab PO DAILY 08/09/17 08/09/17 [Centrum Silver Men Tablet] Atenolol 25 mg PO BID 08/11/17 08/11/17 Levofloxacin [Levaquin] 500 mg PO DAILY 08/11/17 08/11/17 Oseltamivir [Tamiflu] BID 08/11/17 methylPREDNISolone [Medrol Dose 4 mg PO DIRECTED 08/11/17 08/11/17 Pack] Previous Rx's Medication Instructions Recorded Atorvastatin [Lipitor] 40 mg PO HS #30 tab 05/06/17 Atenolol [Tenormin] 25 mg PO BID #60 tab 08/11/17 Albuterol Nebulized [Ventolin 2.5 mg INHALATION QID PRN #125 nebu 08/22/17 Nebulized] predniSONE 20 mg PO BID #6 tab 08/22/17 Allergies Allergy/AdvReac Type Severity Reaction Status Date / Time Penicillins Allergy Itching Verified 08/22/17 08:46 piperacillin [From Zosyn] Allergy Itching Verified 08/11/17 15:36 Sulfa (Sulfonamide Allergy Rash/Hives Verified 08/09/17 08:18 Antibiotics) tazobactam [From Zosyn] Allergy Itching Verified 08/11/17 15:36 Review of Systems ROS Statement: Those systems with pertinent positive or pertinent negative responses have been documented in the HPI. ROS Other: All systems not noted in ROS Statement are negative. Constitutional: Denies: fever, chills Eyes: Denies: eye pain ENT: Denies: ear pain Respiratory: Reports: cough, dyspnea Cardiovascular: Denies: chest pain Endocrine: Reports: fatigue Gastrointestinal: Denies: abdominal pain Genitourinary: Denies: dysuria Musculoskeletal: Denies: back pain Skin: Denies: rash Neurological: Denies: weakness Past Medical History Past Medical History: Blood Disorder, COPD, CVA/TIA, GERD/Reflux, Rheumatoid Arthritis (RA) Additional Past Medical History / Comment(s): DYSPHAGIA, ASPIRATION PRECAUTIONS , 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 Gaping esophagus, barretts esophagus. EGD. 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 Nasal reduction, PEG tube placement , local cord surgery Additional Past Anesthesia/Blood Transfusion Reaction / Comment(s): PARALYZED VOCAL CHORDS Past Psychological History: Anxiety Smoking Status: Former smoker Past Alcohol Use History: Occasional Past Drug Use History: None Reported General Exam Limitations: no limitations General appearance: alert, in no apparent distress Head exam: Present: atraumatic Eye exam: Present: normal appearance, PERRL ENT exam: Present: normal oropharynx Neck exam: Present: normal inspection Respiratory exam: Present: wheezes Cardiovascular Exam: Present: regular rate, normal rhythm GI/Abdominal exam: Present: soft. Absent: tenderness Extremities exam: Present: normal inspection Back exam: Present: normal inspection Neurological exam: Present: alert Psychiatric exam: Present: normal affect, normal mood Skin exam: Present: normal color Course Vital Signs 08/22/17 08/22/17 08/22/17 08:37 09:41 09:51 Temperature 97.3 F L Pulse Rate 72 82 79 Respiratory 22 18 Rate Blood Pressure 111/66 106/72 O2 Sat by Pulse 99 100 Oximetry 08/22/17 08/22/17 08/22/17 09:52 10:14 10:48 Temperature Pulse Rate 80 82 Respiratory 18 Rate Blood Pressure 130/85 O2 Sat by Pulse 96 97 Oximetry EKG Findings - EKG Comments: EKG Findings:: Sinus rhythm at 69. PVC is present. IA 182. QRS 86. QT 390. QTC 417. Left axis. Normal QRS. No acute ST change. Medical Decision Making - Medical Decision Making Patient reevaluated and improved. Patient able to ambulate without desaturating. Patient is comfortable with discharge home. Patient and family updated on results and need for follow-up. Patient has no appointment with pulmonary Thursday however will try to get in sooner. - Lab Data Result diagrams: 08/22/17 08:45 08/22/17 08:45 Lab Results 08/22/17 08/22/17 08/22/17 Range/Units 08:45 08:45 08:45 WBC 6.4 (3.8-10.6) k/uL RBC 3.91 L (4.30-5.90) m/uL Hgb 13.3 (13.0-17.5) gm/dL Hct 39.9 (39.0-53.0) % MCV 102.1 H (80.0-100.0) fL MCH 34.0 (25.0-35.0) pg MCHC 33.3 (31.0-37.0) g/dL RDW 13.1 (11.5-15.5) % Plt Count 230 (150-450) k/uL Neutrophils % 59 % Lymphocytes % 32 % Monocytes % 4 % Eosinophils % 2 % Basophils % 0 % Neutrophils # 3.8 (1.3-7.7) k/uL Lymphocytes # 2.1 (1.0-4.8) k/uL Monocytes # 0.3 (0-1.0) k/uL Eosinophils # 0.1 (0-0.7) k/uL Basophils # 0.0 (0-0.2) k/uL Macrocytosis Slight PT (9.0-12.0) sec INR (<1.2) APTT (22.0-30.0) sec Sodium 134 L (137-145) mmol/L Potassium 4.5 (3.5-5.1) mmol/L Chloride 95 L (98-107) mmol/L Carbon Dioxide 29 (22-30) mmol/L Anion Gap 10 mmol/L BUN 22 H (9-20) mg/dL Creatinine 0.70 (0.66-1.25) mg/dL Est GFR (MDRD) Af Amer >60 (>60 ml/min/1.73 sqM) Est GFR (MDRD) Non-Af >60 (>60 ml/min/1.73 sqM) Glucose 97 (74-99) mg/dL Plasma Lactic Acid Cristian 2.9 H* (0.7-2.0) mmol/L Calcium 9.5 (8.4-10.2) mg/dL Total Bilirubin 1.0 (0.2-1.3) mg/dL AST 34 (17-59) U/L ALT 38 (21-72) U/L Alkaline Phosphatase 129 H (38-126) U/L Total Protein 7.4 (6.3-8.2) g/dL Albumin 3.6 (3.5-5.0) g/dL 08/22/17 Range/Units 08:45 WBC (3.8-10.6) k/uL RBC (4.30-5.90) m/uL Hgb (13.0-17.5) gm/dL Hct (39.0-53.0) % MCV (80.0-100.0) fL MCH (25.0-35.0) pg MCHC (31.0-37.0) g/dL RDW (11.5-15.5) % Plt Count (150-450) k/uL Neutrophils % % Lymphocytes % % Monocytes % % Eosinophils % % Basophils % % Neutrophils # (1.3-7.7) k/uL Lymphocytes # (1.0-4.8) k/uL Monocytes # (0-1.0) k/uL Eosinophils # (0-0.7) k/uL Basophils # (0-0.2) k/uL Macrocytosis PT 10.1 (9.0-12.0) sec INR 1.0 (<1.2) APTT 23.5 (22.0-30.0) sec Sodium (137-145) mmol/L Potassium (3.5-5.1) mmol/L Chloride (98-107) mmol/L Carbon Dioxide (22-30) mmol/L Anion Gap mmol/L BUN (9-20) mg/dL Creatinine (0.66-1.25) mg/dL Est GFR (MDRD) Af Amer (>60 ml/min/1.73 sqM) Est GFR (MDRD) Non-Af (>60 ml/min/1.73 sqM) Glucose (74-99) mg/dL Plasma Lactic Acid Cristian (0.7-2.0) mmol/L Calcium (8.4-10.2) mg/dL Total Bilirubin (0.2-1.3) mg/dL AST (17-59) U/L ALT (21-72) U/L Alkaline Phosphatase (38-126) U/L Total Protein (6.3-8.2) g/dL Albumin (3.5-5.0) g/dL - Radiology Data Radiology results: image reviewed (Chest x-ray shows improved aeration right lung base.) Disposition Clinical Impression: Acute exacerbation of chronic obstructive airways disease Disposition: HOME SELF-CARE Condition: Stable Instructions: COPD (Chronic Obstructive Pulmonary Disease) (ED) Additional Instructions: Please follow-up with Dr. Magdaleno in the beginning of the week. Please also follow-up with primary care physician in the next day or 2 for recheck. Return for fevers, difficulty breathing, worsening symptoms or other concerns. Prescriptions: Albuterol Nebulized [Ventolin Nebulized] 2.5 mg INHALATION QID PRN #125 nebu PRN Reason: Dyspnea predniSONE 20 mg PO BID #6 tab Referrals: Harish Alvarado DO [Primary Care Provider] - 1-2 days Gina Magdaleno MD [STAFF PHYSICIAN] - 1-2 days Time of Disposition: 11:16
[2017-08-22 09:16] LABS: Basophils % (A) 0 %; Eosinophils # (A) 0.1 k/uL (0-0.7); Eosinophils % (A) 2 %; HCT 39.9 % (39.0-53.0); HGB 13.3 gm/dL (13.0-17.5); Lymphocytes # (A) 2.1 k/uL (1.0-4.8); Lymphocytes % (A) 32 %; MCHC 33.3 g/dL (31.0-37.0); MCV 102.1 fL (80.0-100.0); Macrocytosis Slight; Mean Platelet Volume 8.1; Monocytes # (A) 0.3 k/uL (0-1.0); Monocytes % (A) 4 %; Neutrophils # (A) 3.8 k/uL (1.3-7.7); Neutrophils % (A) 59 %; Platelet Count 230 k/uL (150-450); RBC 3.91 m/uL (4.30-5.90); RDW 13.1 % (11.5-15.5); WBC 6.4 k/uL (3.8-10.6)
[2017-08-22 09:21] LABS: Partial Thromboplastin Time 23.5 sec (22.0-30.0); Prothrombin Time 10.1 sec (9.0-12.0)
[2017-08-22 09:24] LABS: ALT 38 U/L (21-72); AST 34 U/L (17-59); Albumin 3.6 g/dL (3.5-5.0); Alkaline Phosphatase 129 U/L (38-126); Anion Gap 10 mmol/L; Blood Urea Nitrogen 22 mg/dL (9-20); Calcium 9.5 mg/dL (8.4-10.2); Carbon Dioxide 29 mmol/L (22-30); Chloride 95 mmol/L (98-107); Glucose 97 mg/dL (74-99); Potassium 4.5 mmol/L (3.5-5.1); Sodium 134 mmol/L (137-145); Total Protein 7.4 g/dL (6.3-8.2)
[2017-08-22] MEDS ORDERED: METOPROLOL TARTRATE 25 MG TAB PO STA (09:25)
--- NOTE | 2017-08-22 09:39 | XR ---
EXAMINATION TYPE: XR chest 2V DATE OF EXAM: 08/22/2017 HISTORY: Fever. REFERENCE: Previous study dated 08/10/2017. FINDINGS: There is improved aeration of the right lung base. Some residual airspace disease persists. Pleural space are clear. The heart is not enlarged. There is unfolding of the thoracic aorta. IMPRESSION: IMPROVED AERATION, RIGHT LUNG BASE.
[2017-08-22] MEDS ORDERED: SODIUM CHLORIDE 0.9% 500 ML IV STA (10:13)
[2017-08-22 11:52] VITALS: BP 107/65; PULSE 78; RESP 20; TEMP 97.8
== END 2017-08-22 11:52 | disposition home or self-care (01) ==
LOC: EC 08:36
DX: J44.1 Chronic obstructive pulmonary disease with (acute) exacerbation (principal); K21.9 Gastro-esophageal reflux disease without esophagitis; M06.9 Rheumatoid arthritis, unspecified; F41.9 Anxiety disorder, unspecified; Z86.73 Personal history of transient ischemic attack (TIA), and cerebral infarction without residual deficits; Z87.891 Personal history of nicotine dependence; Z85.79 Personal history of other malignant neoplasms of lymphoid, hematopoietic and related tissues; Z79.82 Long term (current) use of aspirin; Z79.899 Other long term (current) drug therapy; Z88.0 Allergy status to penicillin; Z88.1 Allergy status to other antibiotic agents; Z88.2 Allergy status to sulfonamides; Z53.8 Procedure and treatment not carried out for other reasons
CPT/HCPCS: 36415; 71046; 80053; 83605; 85025; 85610; 85730; 87040; 93005; 94640; 99285

== ENCOUNTER 2018-01-28 15:22 | Emergency (ER) | payer MEDICARE ==
[2018-01-28 15:48] VITALS: RESP 20; TEMP 98.1
--- NOTE | 2018-01-28 18:06 | ED ---
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 Leakage from the PEG tube it isn't flushing well he does have the ability take some swallow fluid and pills per mouth. He does say he's been constipated recently no reports of fevers chills nausea vomiting sweats or other symptoms no diarrhea. No overt abdominal pain. - Related Data Home Medications Medication Instructions Recorded Confirmed Omeprazole 20 mg PO BID 07/31/14 01/28/18 Ipratropium/Albuterol Sulfate 1 puff INHALATION RT-QID 05/01/17 01/28/18 [Combivent Respimat Inhaler] Loratadine-Pseudoeph 10-240 mg 1 tab PO HS 05/01/17 01/28/18 [Claritin-D 24 Hour] guaiFENesin [Mucinex] 600 mg PO BID PRN 05/01/17 01/28/18 Multivit-Min/FA/Lycopen/Lutein 1 tab PO DAILY 08/09/17 01/28/18 [Centrum Silver Men Tablet] Albuterol Sulfate [Proventil Hfa] 2 puff INHALATION RT-QID PRN 01/28/18 01/28/18 Aspirin EC [Ecotrin Low Dose] 81 mg PO DAILY 01/28/18 01/28/18 Metoprolol Tartrate [Lopressor] 12.5 mg PO BID 01/28/18 01/28/18 Zolpidem Tartrate [Ambien] 5 mg PO Q48H PRN 01/28/18 01/28/18 Allergies Allergy/AdvReac Type Severity Reaction Status Date / Time Penicillins Allergy Itching Verified 01/28/18 15:50 piperacillin [From Zosyn] Allergy Itching Verified 01/28/18 17:27 Sulfa (Sulfonamide Allergy Rash/Hives Verified 01/28/18 17:27 Antibiotics) tazobactam [From Zosyn] Allergy Itching Verified 01/28/18 17:27 Review of Systems ROS Statement: Those systems with pertinent positive or pertinent negative responses have been documented in the HPI. ROS Other: All systems not noted in ROS Statement are negative. 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 Gaping esophagus, barretts esophagus. EGD. 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 Nasal reduction, PEG tube placement , local cord surgery Additional Past Anesthesia/Blood Transfusion Reaction / Comment(s): PARALYZED VOCAL CHORDS Past Psychological History: Anxiety Smoking Status: Former smoker Past Alcohol Use History: Occasional Past Drug Use History: None Reported General Exam - General Exam Comments Initial Comments: This is a well-developed asthenic appearing male who is awake alert oriented 3 Limitations: no limitations General appearance: alert, in no apparent distress Head exam: Present: atraumatic, normocephalic, normal inspection Eye exam: Present: normal appearance, PERRL, EOMI. Absent: scleral icterus, conjunctival injection, periorbital swelling ENT exam: Present: normal exam, mucous membranes moist Neck exam: Present: normal inspection. Absent: tenderness, meningismus, lymphadenopathy Respiratory exam: Present: normal lung sounds bilaterally. Absent: respiratory distress, wheezes, rales, rhonchi, stridor Cardiovascular Exam: Present: regular rate, normal rhythm, normal heart sounds. Absent: systolic murmur, diastolic murmur, rubs, gallop, clicks GI/Abdominal exam: Present: soft, normal bowel sounds, other (PEG tube is placed no active drainage at this time. Some proud flesh is noted around the site no evidence of any bleeding.). Absent: distended, tenderness, guarding, rebound, rigid Extremities exam: Present: normal inspection, full ROM, normal capillary refill. Absent: tenderness, pedal edema, joint swelling, calf tenderness Back exam: Present: normal inspection Neurological exam: Present: alert, oriented X3, CN II-XII intact Psychiatric exam: Present: normal affect, normal mood Skin exam: Present: warm, dry, intact, normal color. Absent: rash Course Vital Signs 01/28/18 15:47 Temperature 98.1 F Pulse Rate 76 Respiratory 20 Rate Blood Pressure 116/74 O2 Sat by Pulse 96 Oximetry Medical Decision Making - Radiology Data Radiology results: report reviewed (I did review the imaging and reports no acute findings are seen other than there is increased stool.), image reviewed Disposition Clinical Impression: Leaking PEG tube, Constipation Disposition: HOME SELF-CARE Condition: Good Instructions: Constipation (ED), How to Use and Care for Your PEG Tube (ED) Is patient prescribed a controlled substance at d/c from ED?: No Referrals: Gina Magdaleno MD [Primary Care Provider] - 1-2 days
--- NOTE | 2018-01-28 18:39 | XR ---
EXAMINATION TYPE: XR chest 2V DATE OF EXAM: 01/28/2018 COMPARISON: 08/28/2017 HISTORY: PEG tube loops. COPD. TECHNIQUE: Frontal and lateral views of the chest are obtained. FINDINGS: Heart size is normal. Thoracic aorta is atheromatous. There is slight elevated right diaphragm. Lungs are clear of consolidation. There is no heart failure. There is no sign of pleural effusion. The bon y thorax appears intact. IMPRESSION: Elevated right diaphragm could relate to partial paralysis. This is similar to old exam. No acute huang g disease.
--- NOTE | 2018-01-28 18:41 | XR ---
EXAMINATION TYPE: XR KUB DATE OF EXAM: 01/28/2018 COMPARISON: NONE HISTORY: PEG tube Loose TECHNIQUE: 2 upright views FINDINGS: There appears to be a PEG tube projected over the epigastrium. Its location is unclear. The re is no sign of intestinal obstruction or pneumoperitoneum. Fecal pattern is normal. IMPRESSION: Location of the PEG tube is unclear. The tip is projected over some air in the stomach an d this could be in the body of the stomach.
[2018-01-28] MEDS ORDERED: MAGNESIUM CITRATE 296 ML BOTTLE PO ONE (19:05)
[2018-01-28 19:29] VITALS: BP 118/74; PULSE 74
== END 2018-01-28 19:27 | disposition home or self-care (01) ==
LOC: EC 15:22
DX: K94.23 Gastrostomy malfunction (principal); K59.00 Constipation, unspecified; K21.9 Gastro-esophageal reflux disease without esophagitis; J44.9 Chronic obstructive pulmonary disease, unspecified; M06.9 Rheumatoid arthritis, unspecified; Z87.891 Personal history of nicotine dependence; Z79.82 Long term (current) use of aspirin; Z79.899 Other long term (current) drug therapy; Z88.0 Allergy status to penicillin; Z88.2 Allergy status to sulfonamides; Z90.49 Acquired absence of other specified parts of digestive tract
CPT/HCPCS: 71046; 74018; 99283

== ENCOUNTER 2018-04-13 20:59 | Inpatient (IN) | payer MEDICARE ==
[2018-04-13] MEDS ORDERED: SODIUM CHLORIDE 0.9% 1,000 ML IV STA (21:03)
[2018-04-13] MEDS ORDERED: methylPREDNISolone SOD SUCCI 125 MG/2 ML VIAL IV STA (21:03)
[2018-04-13] MEDS ORDERED: IPRATROPIUM-ALBUTEROL 3 ML NEB INHALATION STA ×2 (21:03→21:05)
--- NOTE | 2018-04-13 21:06 | ED ---
General Adult HPI - General Stated complaint: AIDE Time Seen by Provider: 04/13/18 21:03 Source: patient, EMS, RN notes reviewed Mode of arrival: EMS Limitations: no limitations - History of Present Illness Initial comments: Patient is a pleasant 73-year-old male presenting to the emergency department with difficulty breathing. Onset of symptoms was a few hours ago. Patient did take his inhaler once. Patient also received nebulizer treatment by EMS. Patient has had some improvement. Patient states his oxygen saturation was 98 home. EMS got 88. Patient states he is coughing however cannot bring up any congestion. No fevers. Patient does have a history of similar symptoms multiple times previously associated with COPD. - Related Data Home Medications Medication Instructions Recorded Confirmed Omeprazole 20 mg PO BID 07/31/14 04/13/18 Ipratropium/Albuterol Sulfate 1 puff INHALATION RT-QID 05/01/17 04/13/18 [Combivent Respimat Inhaler] Loratadine-Pseudoeph 10-240 mg 1 tab PO DAILY 05/01/17 04/13/18 [Claritin-D 24 Hour] guaiFENesin [Mucinex] 600 mg PO BID PRN 05/01/17 04/13/18 Multivit-Min/FA/Lycopen/Lutein 1 tab PO DAILY 08/09/17 04/13/18 [Centrum Silver Men Tablet] Albuterol Sulfate [Proventil Hfa] 2 puff INHALATION RT-QID PRN 01/28/18 04/13/18 Aspirin EC [Ecotrin Low Dose] 81 mg PO DAILY 01/28/18 04/13/18 Metoprolol Tartrate [Lopressor] 12.5 mg PO DAILY 01/28/18 04/13/18 Melatonin 5 mg PO HS 04/13/18 04/13/18 Prazosin [Minipress] 1 mg PO DAILY 04/13/18 04/13/18 Zolpidem [Ambien] 10 mg PO HS PRN 04/13/18 04/13/18 Allergies Allergy/AdvReac Type Severity Reaction Status Date / Time Penicillins Allergy Itching Verified 04/13/18 21:24 piperacillin [From Zosyn] Allergy Itching Verified 04/13/18 21:24 Sulfa (Sulfonamide Allergy Rash/Hives Verified 04/13/18 21:24 Antibiotics) tazobactam [From Zosyn] Allergy Itching Verified 04/13/18 21:24 Review of Systems ROS Statement: Those systems with pertinent positive or pertinent negative responses have been documented in the HPI. ROS Other: All systems not noted in ROS Statement are negative. 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 Gaping esophagus, barretts esophagus. EGD. 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 Nasal reduction, PEG tube placement , local cord surgery Additional Past Anesthesia/Blood Transfusion Reaction / Comment(s): PARALYZED VOCAL CHORDS Past Psychological History: Anxiety Smoking Status: Former smoker Past Alcohol Use History: Occasional Past Drug Use History: None Reported General Exam Limitations: no limitations General appearance: alert Head exam: Present: atraumatic Eye exam: Present: normal appearance, PERRL ENT exam: Present: normal oropharynx Neck exam: Present: normal inspection Respiratory exam: Present: wheezes, accessory muscle use Cardiovascular Exam: Present: regular rate, normal rhythm GI/Abdominal exam: Present: soft. Absent: tenderness Extremities exam: Present: normal inspection. Absent: pedal edema, calf tenderness Neurological exam: Present: alert Psychiatric exam: Present: normal affect, normal mood Skin exam: Present: normal color Course Vital Signs 04/13/18 04/13/18 04/13/18 21:01 21:08 21:14 Temperature 98.1 F Pulse Rate 88 80 Respiratory 18 20 Rate Blood Pressure 133/72 O2 Sat by Pulse 88 L Oximetry 04/13/18 21:29 Temperature Pulse Rate 88 Respiratory Rate Blood Pressure O2 Sat by Pulse Oximetry - Reevaluation(s) Reevaluation #1: 04/13/18 22:04 Patient does not meet sepsis criteria EKG Findings - EKG Comments: EKG Findings:: Normal sinus rhythm at 80. WA 180. QRS 82. QT 356. QTc 410. Left axis. LVH. No acute ST change. Medical Decision Making - Medical Decision Making Patient reevaluated and improved. Pulse ox 90% on 2 L. Patient and family updated on results and plan. - Lab Data Result diagrams: 04/13/18 21:08 04/13/18 21:08 Lab Results 04/13/18 04/13/18 04/13/18 Range/Units 21:08 21:08 21:08 WBC 5.2 (3.8-10.6) k/uL RBC 4.15 L (4.30-5.90) m/uL Hgb 13.7 (13.0-17.5) gm/dL Hct 42.4 (39.0-53.0) % MCV 102.0 H (80.0-100.0) fL MCH 32.9 (25.0-35.0) pg MCHC 32.3 (31.0-37.0) g/dL RDW 13.5 (11.5-15.5) % Plt Count 260 (150-450) k/uL Neutrophils % 58 % Lymphocytes % 33 % Monocytes % 4 % Eosinophils % 3 % Basophils % 0 % Neutrophils # 3.0 (1.3-7.7) k/uL Lymphocytes # 1.7 (1.0-4.8) k/uL Monocytes # 0.2 (0-1.0) k/uL Eosinophils # 0.1 (0-0.7) k/uL Basophils # 0.0 (0-0.2) k/uL Macrocytosis Slight PT (9.0-12.0) sec INR (<1.2) APTT (22.0-30.0) sec Sodium 131 L (137-145) mmol/L Potassium 4.6 (3.5-5.1) mmol/L Chloride 88 L (98-107) mmol/L Carbon Dioxide 34 H (22-30) mmol/L Anion Gap 9 mmol/L BUN 19 (9-20) mg/dL Creatinine 0.46 L (0.66-1.25) mg/dL Est GFR (CKD-EPI)AfAm >90 (>60 ml/min/1.73 sqM) Est GFR (CKD-EPI)NonAf >90 (>60 ml/min/1.73 sqM) Glucose 100 H (74-99) mg/dL Calcium 9.2 (8.4-10.2) mg/dL Total Bilirubin 0.5 (0.2-1.3) mg/dL AST 49 (17-59) U/L ALT 49 (21-72) U/L Alkaline Phosphatase 135 H (38-126) U/L Total Creatine Kinase 230 H (55-170) U/L CK-MB (CK-2) 4.7 H (0.0-2.4) ng/mL CK-MB (CK-2) Rel Index 2.0 Troponin I <0.012 (0.000-0.034) ng/mL Total Protein 8.3 H (6.3-8.2) g/dL Albumin 4.2 (3.5-5.0) g/dL 04/13/18 Range/Units 21:08 WBC (3.8-10.6) k/uL RBC (4.30-5.90) m/uL Hgb (13.0-17.5) gm/dL Hct (39.0-53.0) % MCV (80.0-100.0) fL MCH (25.0-35.0) pg MCHC (31.0-37.0) g/dL RDW (11.5-15.5) % Plt Count (150-450) k/uL Neutrophils % % Lymphocytes % % Monocytes % % Eosinophils % % Basophils % % Neutrophils # (1.3-7.7) k/uL Lymphocytes # (1.0-4.8) k/uL Monocytes # (0-1.0) k/uL Eosinophils # (0-0.7) k/uL Basophils # (0-0.2) k/uL Macrocytosis PT 9.8 (9.0-12.0) sec INR 1.0 (<1.2) APTT 22.6 (22.0-30.0) sec Sodium (137-145) mmol/L Potassium (3.5-5.1) mmol/L Chloride (98-107) mmol/L Carbon Dioxide (22-30) mmol/L Anion Gap mmol/L BUN (9-20) mg/dL Creatinine (0.66-1.25) mg/dL Est GFR (CKD-EPI)AfAm (>60 ml/min/1.73 sqM) Est GFR (CKD-EPI)NonAf (>60 ml/min/1.73 sqM) Glucose (74-99) mg/dL Calcium (8.4-10.2) mg/dL Total Bilirubin (0.2-1.3) mg/dL AST (17-59) U/L ALT (21-72) U/L Alkaline Phosphatase (38-126) U/L Total Creatine Kinase (55-170) U/L CK-MB (CK-2) (0.0-2.4) ng/mL CK-MB (CK-2) Rel Index Troponin I (0.000-0.034) ng/mL Total Protein (6.3-8.2) g/dL Albumin (3.5-5.0) g/dL - Radiology Data Radiology results: image reviewed (X-ray shows left lower lobe infiltrate) Disposition Clinical Impression: COPD exacerbation, Pneumonia Disposition: ADMITTED IP TO THIS HOSP Is patient prescribed a controlled substance at d/c from ED?: No Referrals: None,Stated [REFERRING] - 1-2 days Decision Time: 22:05
[2018-04-13 21:25] LABS: Basophils % (A) 0 %; Eosinophils # (A) 0.1 k/uL (0-0.7); Eosinophils % (A) 3 %; HCT 42.4 % (39.0-53.0); HGB 13.7 gm/dL (13.0-17.5); Lymphocytes # (A) 1.7 k/uL (1.0-4.8); Lymphocytes % (A) 33 %; MCH 32.9 pg (25.0-35.0); MCHC 32.3 g/dL (31.0-37.0); Macrocytosis Slight; Mean Platelet Volume 8.3; Monocytes # (A) 0.2 k/uL (0-1.0); Monocytes % (A) 4 %; Neutrophils % (A) 58 %; Platelet Count 260 k/uL (150-450); RBC 4.15 m/uL (4.30-5.90); RDW 13.5 % (11.5-15.5); WBC 5.2 k/uL (3.8-10.6)
[2018-04-13 21:31] LABS: Partial Thromboplastin Time 22.6 sec (22.0-30.0); Prothrombin Time 9.8 sec (9.0-12.0)
[2018-04-13 21:32] LABS: ALT 49 U/L (21-72); AST 49 U/L (17-59); Albumin 4.2 g/dL (3.5-5.0); Alkaline Phosphatase 135 U/L (38-126); Anion Gap 9 mmol/L; Blood Urea Nitrogen 19 mg/dL (9-20); Calcium 9.2 mg/dL (8.4-10.2); Carbon Dioxide 34 mmol/L (22-30); Chloride 88 mmol/L (98-107); Glucose 100 mg/dL (74-99); Potassium 4.6 mmol/L (3.5-5.1); Sodium 131 mmol/L (137-145); Total Bilirubin 0.5 mg/dL (0.2-1.3); Total Protein 8.3 g/dL (6.3-8.2)
[2018-04-13 21:43] LABS: Creatine Kinase 230 U/L (55-170)
--- NOTE | 2018-04-13 21:43 | XR ---
EXAMINATION TYPE: XR chest 1V portable DATE OF EXAM: 04/13/2018 COMPARISON: 01/28/2018 HISTORY: Difficulty breathing TECHNIQUE: Single frontal view of the chest is obtained. FINDINGS: There is some infiltrate in the left lower lobe. There is elevated right diaphragm and opa cification of the right lower hemithorax. Location of the right diaphragm is not clear. There is no h eart failure. IMPRESSION: There is new left lower lobe pneumonia compared to last exam. There is increased density at the right lung base consistent with elevated right diaphragm and right basilar atelectasis. Right pleural effusion is possible. This appears worse than last exam.
[2018-04-13 21:56] LABS: Creatine Kinase MB 4.7 ng/mL (0.0-2.4); Troponin I <0.012 ng/mL (0.000-0.034)
[2018-04-13] MEDS ORDERED: LEVOFLOXACIN 750MG-D5W PMX 750 MG in DEXTROSE/WATER 1 150ML.BAG IVPB STA (22:05)
[2018-04-13] MEDS ORDERED: PNEUMONIA PROTOCOL UTILIZED 1 EACH MISC PO PRN (22:05)
[2018-04-13] MEDS ORDERED: guaiFENesin 600 MG TABLET.ER PO PRN (22:07)
[2018-04-13] MEDS: SODIUM CHLORIDE 0.9% 1,000 ML IV SCH (22:40)
[2018-04-14] MEDS: IPRATROPIUM-ALBUTEROL 3 ML NEB INHALATION PRN ×2 (01:18→03:57)
--- NOTE | 2018-04-14 01:20 | P.HPIM ---
History of Present Illness H&P Date: 04/14/18 Chief Complaint: Difficulty in breathing after vomiting and aspirating 73-year-old male with history of COPD, partial vocal cord paralysis status post PEG tube insertion, Phillips's esophagus Patient presented to the hospital due to difficulty in breathing after aspirating. He reported that he was at his baseline status of health when he suddenly felt that occurred symptoms and eventually he throughout aspirated after which immediately his oxygen saturation has dropped he felt congested and creatinine pre-. He tried breathing treatment at home with no benefit and decided to call EMS and was brought to the hospital patient otherwise denies any fevers or chills denies any coughing denies any abdominal pain denies any changes in his bowel habits or urinary habits denies any GI bleeding. Patient has history of smoldering multiple myeloma. In the emergency department chest x-ray didn't show evidence of left lower lobe infiltrates suggestive of pneumonia. Patient otherwise denies any sick contact , recent traveling Review of Systems Pertinent positives as noted in HPI. 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 Gaping esophagus, barretts esophagus. EGD. 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 Nasal reduction, PEG tube placement , local cord surgery Additional Past Anesthesia/Blood Transfusion Reaction / Comment(s): PARALYZED VOCAL CHORDS Past Psychological History: Anxiety Smoking Status: Former smoker Past Alcohol Use History: Occasional Past Drug Use History: None Reported - Past Family History Sister(s) Additional Family Medical History / Comment(s): passed colon CA Brother(s) Additional Family Medical History / Comment(s): sarcidosis Mother Additional Family Medical History / Comment(s): lung CA Son(s) Family Medical History: Hypertension Additional Family Medical History / Comment(s): lymphoma, sarcoidosis Medications and Allergies Home Medications Medication Instructions Recorded Confirmed Type Omeprazole 20 mg PO BID 07/31/14 04/13/18 History Ipratropium/Albuterol Sulfate 1 puff INHALATION RT-QID 05/01/17 04/13/18 History [Combivent Respimat Inhaler] Loratadine-Pseudoeph 10-240 mg 1 tab PO DAILY 05/01/17 04/13/18 History [Claritin-D 24 Hour] guaiFENesin [Mucinex] 600 mg PO BID PRN 05/01/17 04/13/18 History Multivit-Min/FA/Lycopen/Lutein 1 tab PO DAILY 08/09/17 04/13/18 History [Centrum Silver Men Tablet] Albuterol Sulfate [Proventil Hfa] 2 puff INHALATION RT-QID PRN 01/28/18 History Aspirin EC [Ecotrin Low Dose] 81 mg PO DAILY 01/28/18 04/13/18 History Metoprolol Tartrate [Lopressor] 12.5 mg PO DAILY 01/28/18 04/13/18 History Melatonin 5 mg PO HS 04/13/18 04/13/18 History Prazosin [Minipress] 1 mg PO DAILY 04/13/18 04/13/18 History Zolpidem [Ambien] 10 mg PO HS PRN 04/13/18 04/13/18 History Allergies Allergy/AdvReac Type Severity Reaction Status Date / Time Penicillins Allergy Itching Verified 04/13/18 21:24 piperacillin [From Zosyn] Allergy Itching Verified 04/13/18 21:24 Sulfa (Sulfonamide Allergy Rash/Hives Verified 04/13/18 21:24 Antibiotics) tazobactam [From Zosyn] Allergy Itching Verified 04/13/18 21:24 Physical Exam Vitals: Vital Signs Temp Pulse Pulse Resp BP BP Pulse Ox 04/14/18 00:05 98.0 F 96 16 112/68 94 L 04/13/18 23:43 98.0 F 97 18 128/73 96 04/13/18 23:24 95 18 96 04/13/18 21:29 88 04/13/18 21:14 20 04/13/18 21:08 80 04/13/18 21:01 98.1 F 88 18 133/72 88 L Intake and Output 04/13/18 04/13/18 04/14/18 14:59 22:59 06:59 Other: Weight 68.039 kg Constitutional: No acute distress, conversant, pleasant, hoarseness of voice due to partial vocal cord paralysis Eyes: Anicteric sclerae, moist conjunctiva, no lid-lag Pupils equal round reactive to light ENMT: NC/AT Oropharynx clear, no erythema, exudates Neck: Supple, FROM, no masses, or JVD No carotid bruits No thyromegaly Lungs: Decreased breath sounds throughout, diffuse expiratory rhonchi and wheezes. Decreased breath sounds at lung base right worse than left Patient is using accessory muscles of respiration Cardiovascular: Heart regular in rate and rhythm, No murmurs, gallops, or rubs No peripheral edema Abdominal: Soft, PEG tube in place with healthy dry clean base Nontender, no guarding, rebound or rigidity Abdomen moving with respiration Normoactive bowel sounds No hepatomegaly, No splenomegaly No palpable mass No abdominal wall hernia noted Skin: Normal temperature, tone, texture, turgor No induration No subcutaneous nodules No rash, lesions No ulcers Extremities: No digital cyanosis No clubbing Pedal pulses intact and symmetrical Radial pulses intact and symmetrical No calf tenderness Psychiatric: Alert and oriented to person, place and time Appropriate affect fair judgment Neuro Muscles Strength 4/5 in all 4 extremities Sensation to light touch grossly present throughout Cranial nerves II-XII grossly intact No focal sensory deficits Lymphatics: no palpable cervical or supraclavicular , or inguinal lymph nodes Results CBC & Chem 7: 04/13/18 21:08 04/13/18 21:08 Labs: Abnormal Lab Results - Last 24 Hours (Table) 04/13/18 04/13/18 04/13/18 Range/Units 21:08 21:08 21:08 RBC 4.15 L (4.30-5.90) m/uL MCV 102.0 H (80.0-100.0) fL Sodium 131 L (137-145) mmol/L Chloride 88 L (98-107) mmol/L Carbon Dioxide 34 H (22-30) mmol/L Creatinine 0.46 L (0.66-1.25) mg/dL Glucose 100 H (74-99) mg/dL Alkaline Phosphatase 135 H (38-126) U/L Total Creatine Kinase 230 H (55-170) U/L CK-MB (CK-2) 4.7 H (0.0-2.4) ng/mL Total Protein 8.3 H (6.3-8.2) g/dL Assessment and Plan Assessment: 73 year old male with history of partial vocal cord paralysis, GERD, admitted as inpatient with anticipated length of stay of >48 hrs due to acute hypoxic respiratory failure due to aspiration pneumonia resulting in acute COPD exacerbation Plan: acute hypoxic respiratory failure acute aspiration pneumonia acute COPD exacerbation partial vocal cord paralysis smoldering multiple myeloma Hyponatremia , mild , asymptomatic histroy of barrettes esophagus GERD oxygen via nasal canula, keep O2 sat >92% levofloxacin , follow up cultures, and urine legionella antigen IV steroids , inhalers supportive care aspiration precautions PEG tube feeding mucinex BID Heparin sc tid for DVT prophylaxis resume home medications continue PPI Preformed a thorough record review from recent hospitalization Aug 2017, for Pneumonia 2/2 flu. Surrogate decision-maker: patients CODE STATUS:full code Discussed with: Patient, ER, RN Anticipated discharge: 48-[address]: home A total of 50 minutes was spent on the care of this complex patient more than 50 % of the time was spent in counseling and care coordination.
[2018-04-14] MEDS: methylPREDNISolone SOD SUCCI 125 MG/2 ML VIAL IV SCH ×5 (01:38→23:30)
[2018-04-14] MEDS: IPRATROPIUM-ALBUTEROL 3 ML NEB INHALATION SCH ×4 (07:22→19:38)
[2018-04-14 08:22] LABS: Glucose,Whole Blood 154 mg/dL (75-99)
[2018-04-14] MEDS: HEPARIN SODIUM,PORCINE 5,000 UNIT/ML 1 ML VIAL SQ SCH ×3 (09:46→23:30)
[2018-04-14] MEDS: PANTOPRAZOLE 40 MG TABLET PO SCH ×2 (09:47→21:51)
[2018-04-14] MEDS: ASPIRIN 81 MG PO SCH (09:47)
[2018-04-14] MEDS: LORATADINE-PSEUDOEPH 5-120 MG 1 EACH TAB.ER.12H PO SCH (09:47)
[2018-04-14] MEDS: METOPROLOL TARTRATE 12.5 MG TAB PO SCH (09:47)
[2018-04-14] MEDS: PRAZOSIN 1 MG CAP PO SCH (09:48)
[2018-04-14 09:50] VITALS: BMI 22.8
[2018-04-14 09:52] LABS: ALT 42 U/L (21-72); AST 44 U/L (17-59); Albumin 3.7 g/dL (3.5-5.0); Alkaline Phosphatase 111 U/L (38-126); Anion Gap 12 mmol/L; Blood Urea Nitrogen 12 mg/dL (9-20); Calcium 9.2 mg/dL (8.4-10.2); Carbon Dioxide 26 mmol/L (22-30); Chloride 91 mmol/L (98-107); Glucose 146 mg/dL (74-99); Potassium 5.1 mmol/L (3.5-5.1); Sodium 129 mmol/L (137-145); Total Bilirubin 0.6 mg/dL (0.2-1.3); Total Protein 7.4 g/dL (6.3-8.2)
[2018-04-14 10:01] LABS: HCT 39.4 % (39.0-53.0); HGB 12.7 gm/dL (13.0-17.5); MCH 33.3 pg (25.0-35.0); MCHC 32.3 g/dL (31.0-37.0); MCV 102.9 fL (80.0-100.0); Macrocytosis Slight; Mean Platelet Volume 7.2; Platelet Count 229 k/uL (150-450); RBC 3.83 m/uL (4.30-5.90); RDW 13.7 % (11.5-15.5); WBC 5.9 k/uL (3.8-10.6)
[2018-04-14] MEDS: SODIUM CHLORIDE 0.9% 1,000 ML IV SCH (10:21)
[2018-04-14 10:40] LABS: Lymphocytes # (M) 0.18 k/uL (1.0-4.8); Monocytes # (M) 0.18 k/uL (0-1.0); Myelocytes # (M) 0.06 k/uL (0); Myelocytes % 1 %; Nucleated Red Blood Cells 0 /100 WBC (0-0)
[2018-04-14 10:41] LABS: Band Neutrophils % 12 %; Metamyelocytes # (M) 0.12 k/uL (0); Metamyelocytes % 2 %; Neutrophils % (M) 80 %; Total Cells Counted 200; Toxic Granulation Present
--- NOTE | 2018-04-14 10:41 | XR ---
EXAMINATION TYPE: XR chest 2V DATE OF EXAM: 04/14/2018 COMPARISON: Prior chest 04/13/2018 HISTORY: Pneumonia TECHNIQUE: Frontal and lateral views of the chest are obtained. FINDINGS: Findings are similar. The right hemidiaphragm is obscured, there is blunting of the costop hrenic angles. Patient is rotated. No evident pneumothorax. Heart size is likely stable but obscured. Pulmonary vascularity and amira are unchanged. Prominent lung volumes suggest underlying COPD. The ao rta is dense. There is elevated right hemidiaphragm. IMPRESSION: There may be lower lobe atelectasis versus pneumonia and associated effusion right great er than left. Follow-up to resolution.
[2018-04-14 11:42] LABS: Glucose,Whole Blood 259 mg/dL (75-99)
[2018-04-14] MEDS ORDERED: guaiFENesin SYRUP 100MG/5ML 200 MG/10 ML CUP PO PRN (13:18)
--- NOTE | 2018-04-14 13:19 | P.CNPUL ---
History of Present Illness Consult date: 04/14/18 Requesting physician: Tiny Monreal Reason for consult: dyspnea, cough, hypoxemia, pneumonia, abnormal CXR/CT Chief complaint: Aspiration pneumonia, hypoxemia, cough History of present illness: This is a 73-year-old white male patient who follows with Dr. Matthews from [place] as his PCP, presented to the emergency department by ambulance, on oral 04/15/2018 at 2100 for difficulty breathing. 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 Patient was also evaluated for bulbar palsy at the [facility], and the genetic testing came back negative. Patient does bolus tube feedings, with Jevity 1.5 2 8 ounce cans 3 times daily, patient took his evening tube feedings, and shortly afterward started experiencing reflux of gastric contents, and started vigorously coughing, and choking subsequently desaturated into the 70s. Patient had undergone medialization thyroplasty of the left vocal cord by ENT specialist which helped with his symptoms of dyspnea and aspiration, however he continues to have episodes of on and off aspiration especially with liquids. Patient does take some fluids by mouth, small amounts of water, and occasionally coffee, but otherwise no other food. In terms of the COPD, the patient is maintained on Anoro Ellipta and Combivent, and he has a portable oxygen as well as oxygen concentrator on as-needed basis at 2 L/m. Patient has been active on the regular basis, and his COPD has been well controlled. Quit smoking many years ago. Other medical history includes multiple myeloma, rheumatoid arthritis, anxiety. Chest x-ray completed in the emergency room showed left lower lobe infiltrate and elevation of the right hemidiaphragm with right basilar atelectasis or pleural effusion. Patient has ALLERGIES to penicillins, sulfonamides, and tazobactam, hence patient was started on Levaquin , nebulized bronchodilators, IV steroids, and admitted for further management. Review of Systems All systems: negative Constitutional: Denies chills, Denies fever Eyes: denies blurred vision, denies pain Ears, nose, mouth and throat: Denies headache, Denies sore throat Cardiovascular: Denies chest pain, Denies shortness of breath Respiratory: Reports dyspnea, Reports home oxygen, Reports respiratory infections, Reports wheezing, Denies cough Gastrointestinal: Reports as per HPI, Denies abdominal pain, Denies diarrhea, Denies nausea, Denies vomiting Musculoskeletal: Denies myalgias Integumentary: Denies pruritus, Denies rash Neurological: Reports as per HPI, Denies numbness, Denies weakness Psychiatric: Denies anxiety, Denies depression Endocrine: Denies fatigue, Denies weight change Past Medical History Past Medical History: Blood Disorder, COPD, CVA/TIA, GERD/Reflux, Rheumatoid Arthritis (RA) Additional Past Medical History / Comment(s): DYSPHAGIA, ASPIRATION PRECAUTIONS , 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 Gaping esophagus, barretts esophagus. EGD. 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 Nasal reduction, PEG tube placement , local cord surgery Additional Past Anesthesia/Blood Transfusion Reaction / Comment(s): PARALYZED VOCAL CHORDS Past Psychological History: Anxiety Smoking Status: Former smoker Past Alcohol Use History: Occasional Past Drug Use History: None Reported - Past Family History Sister(s) Additional Family Medical History / Comment(s): passed colon CA Brother(s) Additional Family Medical History / Comment(s): sarcidosis Mother Additional Family Medical History / Comment(s): lung CA Son(s) Family Medical History: Hypertension Additional Family Medical History / Comment(s): lymphoma, sarcoidosis Medications and Allergies Home Medications Medication Instructions Recorded Confirmed Type Omeprazole 20 mg PO BID 07/31/14 04/13/18 History Ipratropium/Albuterol Sulfate 1 puff INHALATION RT-QID 05/01/17 04/13/18 History [Combivent Respimat Inhaler] Loratadine-Pseudoeph 10-240 mg 1 tab PO DAILY 05/01/17 04/13/18 History [Claritin-D 24 Hour] guaiFENesin [Mucinex] 600 mg PO BID PRN 05/01/17 04/13/18 History Multivit-Min/FA/Lycopen/Lutein 1 tab PO DAILY 08/09/17 04/13/18 History [Centrum Silver Men Tablet] Albuterol Sulfate [Proventil Hfa] 2 puff INHALATION RT-QID PRN 01/28/18 History Aspirin EC [Ecotrin Low Dose] 81 mg PO DAILY 01/28/18 04/13/18 History Metoprolol Tartrate [Lopressor] 12.5 mg PO DAILY 01/28/18 04/13/18 History Melatonin 5 mg PO HS 04/13/18 04/13/18 History Prazosin [Minipress] 1 mg PO DAILY 04/13/18 04/13/18 History Zolpidem [Ambien] 10 mg PO HS PRN 04/13/18 04/13/18 History Allergies Allergy/AdvReac Type Severity Reaction Status Date / Time Penicillins Allergy Itching Verified 04/13/18 21:24 piperacillin [From Zosyn] Allergy Itching Verified 04/13/18 21:24 Sulfa (Sulfonamide Allergy Rash/Hives Verified 04/13/18 21:24 Antibiotics) tazobactam [From Zosyn] Allergy Itching Verified 04/13/18 21:24 Physical Exam Vitals: Vital Signs Temp Pulse Pulse Resp BP BP Pulse Ox 04/14/18 11:08 84 04/14/18 10:58 83 04/14/18 07:33 82 04/14/18 07:24 80 04/14/18 06:18 96.8 F L 107 H 18 136/87 97 04/14/18 04:08 88 04/14/18 03:57 84 04/14/18 01:20 92 04/14/18 00:05 98.0 F 96 16 112/68 94 L 04/13/18 23:56 94 L 04/13/18 23:43 98.0 F 97 18 128/73 96 04/13/18 23:24 95 18 96 04/13/18 21:29 88 04/13/18 21:14 20 04/13/18 21:08 80 04/13/18 21:01 98.1 F 88 18 133/72 88 L Intake and Output 04/13/18 04/14/18 04/14/18 22:59 06:59 14:59 Output Total 625 Balance -625 Output: Urine 625 Other: # Voids 3 Weight 68.039 kg 68.039 kg GENERAL EXAM: Alert, pleasant, 73-year-old white male comfortable in no apparent distress. HEAD: Normocephalic/atraumatic. EYES: Normal reaction of pupils, equal size. Conjunctiva pink, sclera white. NOSE: Clear with pink turbinates. THROAT: No erythema or exudates. NECK: No masses, no JVD, no thyroid enlargement, no adenopathy. CHEST: No chest wall deformity. Symmetrical expansion. LUNGS: Equal air entry with diffuse rhonchi, rales, and end expiratory wheezing. CVS: Regular rate and rhythm, normal S1 and S2, no gallops, no murmurs, no rubs ABDOMEN: Soft, nontender. No hepatosplenomegaly, normal bowel sounds, no guarding or rigidity. Patient has a left abdominal PEG tube in place EXTREMITIES: No clubbing, no edema, no cyanosis, 2+ pulses and upper and lower extremities. MUSCULOSKELETAL: Muscle strength and tone normal. SPINE: No scoliosis or deformity SKIN: No rashes CENTRAL NERVOUS SYSTEM: Alert and oriented -3. No focal deficits, tone is normal in all 4 extremities. PSYCHIATRIC: Alert and oriented -3. Appropriate affect. Intact judgment and insight. Results - Laboratory Findings CBC and BMP: 04/14/18 09:02 04/14/18 09:02 PT/INR, D-dimer PT 9.8 sec (9.0-12.0) 04/13/18 21:08 INR 1.0 (<1.2) 04/13/18 21:08 Abnormal lab findings: Abnormal Labs 04/13/18 04/13/18 04/13/18 21:08 21:08 21:08 RBC 4.15 L Hgb MCV 102.0 H Lymphocytes # (Manual) Metamyelocytes # (Man) Myelocytes # (Manual) Sodium 131 L Chloride 88 L Carbon Dioxide 34 H Creatinine 0.46 L Glucose 100 H POC Glucose (mg/dL) Alkaline Phosphatase 135 H Total Creatine Kinase 230 H CK-MB (CK-2) 4.7 H Total Protein 8.3 H 04/14/18 04/14/18 04/14/18 07:25 09:02 09:02 RBC 3.83 L Hgb 12.7 L MCV 102.9 H Lymphocytes # (Manual) 0.18 L Metamyelocytes # (Man) 0.12 H Myelocytes # (Manual) 0.06 H Sodium 129 L Chloride 91 L Carbon Dioxide Creatinine 0.38 L Glucose 146 H POC Glucose (mg/dL) 154 H Alkaline Phosphatase Total Creatine Kinase CK-MB (CK-2) Total Protein 04/14/18 11:28 RBC Hgb MCV Lymphocytes # (Manual) Metamyelocytes # (Man) Myelocytes # (Manual) Sodium Chloride Carbon Dioxide Creatinine Glucose POC Glucose (mg/dL) 259 H Alkaline Phosphatase Total Creatine Kinase CK-MB (CK-2) Total Protein - Diagnostic Findings Chest x-ray: report reviewed, image reviewed Additional studies: EKG reviewed Assessment and Plan Plan: Assessment: #1. Acute on chronic hypoxemic respiratory failure secondary to acute aspiration on tube feeding. Chest x-ray showed new left lower lobe infiltrate, and elevated right hemidiaphragm with basilar atelectasis. #2. Acute COPD exacerbation secondary to above #3. Chronic dysphagia and aspiration due to vocal cord paralysis related to history of CVA. Patient receives all of his nutrition via his PEG tube, Jevity 1.5, 2 cans 3 times a day. Patient only takes sips of water and occasionally coffee by mouth #4. Previous episodes of aspiration pneumonia #5. Hyponatremia, patient has a degree of chronic hyponatremia with serum sodium ranging from 129-134 #6. Chronic obstructive pulmonary disease with chronic hypoxemic respiratory failure #7. History multiple myeloma #8. GERD/reflux, history of Phillips esophagus #9. History of rheumatoid arthritis Plan: Continue IV antibiotics, IV Solu-Medrol, nebulized bronchodilators. Patient can resume his tube feedings, he is requesting bolus feedings instead of continuous tube feedings. We will decrease the amount of cans given in one time , and increased the frequency instead to meet his nutritional goals. We'll consult RD for recommendations. Continue GI and DVT prophylaxis, we'll continue to follow I performed a history & physical examination of the patient and discussed their management with my nurse practitioner, Carol Key. I reviewed the nurse practitioner's note and agree with the documented findings and plan of care. Lung sounds are positive for diffuse rhonchi, and wheezes. The findings and the impression was discussed with the patient. I attest to the documentation by the nurse practitioner. Time with Patient: Greater than 30
--- NOTE | 2018-04-14 14:59 | P.PN ---
Progress Note - Text Progress Note Date: 04/14/18 Interval note for no associated with billing on 04/14 please see H&P by Dr. Tamayo Patient seen and examined at bedside. He is feeling much improved. Her shortness of breath is almost completely resolved. His coughing is much decreased. No nausea or vomiting at this point in time. He has already tolerated 1 bolus tube feeding. Aspiration event, rule out aspiration pneumonia -Pulmonary recommendations -IV antibiotics -Repeat chest x-ray in a.m. Vocal cord paralysis Acute exacerbation of COPD Smoldering multiple myeloma Hyponatremia, chronic, slightly below baseline History of Phillips's esophagus
[2018-04-14 16:11] LABS: Hemoglobin A1C 5.3 % (4.0-6.0)
[2018-04-14] MEDS: CLINDAMYCIN 600 MG in DEXTROSE 5% IN WATER 50 ML IVPB SCH ×2 (16:21)
[2018-04-14 17:15] LABS: Glucose,Whole Blood 181 mg/dL (75-99)
[2018-04-14 21:16] LABS: Glucose,Whole Blood 150 mg/dL (75-99)
[2018-04-14] MEDS: ZOLPIDEM 10 MG TAB PO PRN (21:51)
[2018-04-14] MEDS: MELATONIN 5 MG TABLET PO SCH (23:26)
[2018-04-14] MEDS: LEVOFLOXACIN 750MG-D5W PMX 750 MG in DEXTROSE/WATER 1 150ML.BAG IVPB SCH (23:28)
[2018-04-15] MEDS: CLINDAMYCIN 600 MG in DEXTROSE 5% IN WATER 50 ML IVPB SCH ×6 (01:30→15:24)
[2018-04-15] MEDS: methylPREDNISolone SOD SUCCI 125 MG/2 ML VIAL IV SCH ×4 (05:54→22:29)
[2018-04-15] MEDS: IPRATROPIUM-ALBUTEROL 3 ML NEB INHALATION SCH ×4 (07:11→19:55)
[2018-04-15 07:40] LABS: Glucose,Whole Blood 134 mg/dL (75-99)
[2018-04-15 07:57] LABS: HCT 37.6 % (39.0-53.0); HGB 12.8 gm/dL (13.0-17.5); MCH 34.7 pg (25.0-35.0); MCV 102.1 fL (80.0-100.0); Macrocytosis Slight; Mean Platelet Volume 7.4; Platelet Count 221 k/uL (150-450); RBC 3.68 m/uL (4.30-5.90); RDW 13.4 % (11.5-15.5)
[2018-04-15 08:18] LABS: Anion Gap 7 mmol/L; Blood Urea Nitrogen 15 mg/dL (9-20); Calcium 9.6 mg/dL (8.4-10.2); Carbon Dioxide 32 mmol/L (22-30); Chloride 92 mmol/L (98-107); Glucose 123 mg/dL (74-99); Potassium 4.9 mmol/L (3.5-5.1); Sodium 131 mmol/L (137-145)
[2018-04-15] MEDS: METOPROLOL TARTRATE 12.5 MG TAB PO SCH (08:30)
[2018-04-15] MEDS: PANTOPRAZOLE 40 MG TABLET PO SCH ×2 (08:30→22:05)
[2018-04-15] MEDS: HEPARIN SODIUM,PORCINE 5,000 UNIT/ML 1 ML VIAL SQ SCH ×2 (08:30→15:24)
[2018-04-15] MEDS: PRAZOSIN 1 MG CAP PO SCH (08:30)
[2018-04-15] MEDS: LORATADINE-PSEUDOEPH 5-120 MG 1 EACH TAB.ER.12H PO SCH (08:30)
[2018-04-15] MEDS: ASPIRIN 81 MG PO SCH (08:30)
--- NOTE | 2018-04-15 08:39 | XR ---
EXAMINATION TYPE: XR chest 2V DATE OF EXAM: 04/15/2018 COMPARISON: 04/14/2018 HISTORY: Shortness of breath TECHNIQUE: Frontal and lateral views of the chest are obtained. FINDINGS: Scattered senescent parenchymal changes noted. Hyperinflation compatible with COPD. Patchy basilar densities persist although are improved. Heart size is stable. Mediastinal structures are stable and grossly unremarkable. No evidence for hilar prominence. Degenerative changes dorsal spine. IMPRESSION: 1. Improving basilar pneumonia.
[2018-04-15 11:36] LABS: Glucose,Whole Blood 142 mg/dL (75-99)
[2018-04-15] MEDS: guaiFENesin 600 MG TABLET.ER PO SCH ×2 (12:30→22:05)
[2018-04-15 16:57] LABS: Glucose,Whole Blood 151 mg/dL (75-99)
--- NOTE | 2018-04-15 17:25 | P.PN ---
Subjective Progress Note Date: 04/15/18 Principal diagnosis: Acute on chronic hypoxemic respiratory failure secondary to acute aspiration pneumonia This is a 73-year-old white male patient who follows with Dr. Matthews from [place] as his PCP, presented to the emergency department by ambulance, on oral at 2100 for difficulty breathing. 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 Patient was also evaluated for bulbar palsy at the [facility], and the genetic testing came back negative. Patient does bolus tube feedings, with Jevity 1.5 2 8 ounce cans 3 times daily, patient took his evening tube feedings, and shortly afterward started experiencing reflux of gastric contents, and started vigorously coughing , and choking subsequently desaturated into the 70s. Patient had undergone medialization thyroplasty of the left vocal cord by ENT specialist which helped with his symptoms of dyspnea and aspiration, however he continues to have episodes of on and off aspiration especially with liquids. Patient does take some fluids by mouth, small amounts of water, and occasionally coffee, but otherwise no other food. In terms of the COPD, the patient is maintained on Anoro Ellipta and Combivent, and he has a portable oxygen as well as oxygen concentrator on as-needed basis at 2 L/m. Patient has been active on the regular basis, and his COPD has been well controlled. Quit smoking many years ago. Other medical history includes multiple myeloma, rheumatoid arthritis, anxiety. Chest x-ray completed in the emergency room showed left lower lobe infiltrate and elevation of the right hemidiaphragm with right basilar atelectasis or pleural effusion. Patient has ALLERGIES to penicillins, sulfonamides, and tazobactam, hence patient was started on Levaquin, nebulized bronchodilators, IV steroids, and admitted for further management. On 04/15/2018 patient seen in follow-up on medical surgical floor. Feeling and breathing better today, less congested. And sounds are positive for dementia breath sounds over right lower lobe, scattered rhonchi. Patient continues on Levaquin and clindamycin, nebulized bronchodilators, and IV steroids, improving. No fever or chills, currently on 2 L per nasal cannula his pulse ox is 92%. Tolerating his tube feedings, and is instilling 1 can at a time, and waiting in between the second can. No recurrent aspiration. As remains stable , patient is ambulating to the bathroom, when well. Cultures are negative. He is bringing up some sputum. Objective - Vital Signs Vital signs: Vital Signs Temp 98.6 F 04/15/18 07:20 Pulse 88 04/15/18 11:00 Resp 16 04/15/18 08:00 BP 157/89 04/15/18 07:20 Pulse Ox 92 L 04/15/18 07:20 Intake & Output 04/14/18 04/15/18 04/15/18 18:59 06:59 18:59 Intake Total 600 Balance 600 Weight 68.039 kg 64 kg Intake: Oral 600 Other: Voiding Method Toilet # Voids 5 - Exam GENERAL EXAM: Alert, pleasant, 73-year-old white male comfortable in no apparent distress. HEAD: Normocephalic/atraumatic. EYES: Normal reaction of pupils, equal size. Conjunctiva pink, sclera white. NOSE: Clear with pink turbinates. THROAT: No erythema or exudates. NECK: No masses, no JVD, no thyroid enlargement, no adenopathy. CHEST: No chest wall deformity. Symmetrical expansion. LUNGS: Diminished breath sounds over right lower lobe, diffuse rhonchi CVS: Regular rate and rhythm, normal S1 and S2, no gallops, no murmurs, no rubs ABDOMEN: Soft, nontender. No hepatosplenomegaly, normal bowel sounds, no guarding or rigidity. Patient has a left abdominal PEG tube in place EXTREMITIES: No clubbing, no edema, no cyanosis, 2+ pulses and upper and lower extremities. MUSCULOSKELETAL: Muscle strength and tone normal. SPINE: No scoliosis or deformity SKIN: No rashes CENTRAL NERVOUS SYSTEM: Alert and oriented -3. No focal deficits, tone is normal in all 4 extremities. PSYCHIATRIC: Alert and oriented -3. Appropriate affect. Intact judgment and insight. - Labs CBC & Chem 7: 04/15/18 07:37 04/15/18 07:37 Labs: Abnormal Lab Results - Last 24 Hours (Table) 04/14/18 04/14/18 04/15/18 Range/Units 16:56 20:47 07:37 RBC 3.68 L (4.30-5.90) m/uL Hgb 12.8 L (13.0-17.5) gm/dL Hct 37.6 L (39.0-53.0) % MCV 102.1 H (80.0-100.0) fL Sodium (137-145) mmol/L Chloride (98-107) mmol/L Carbon Dioxide (22-30) mmol/L Creatinine (0.66-1.25) mg/dL Glucose (74-99) mg/dL POC Glucose (mg/dL) 181 H 150 H (75-99) mg/dL 04/15/18 04/15/18 04/15/18 Range/Units 07:37 07:38 11:22 RBC (4.30-5.90) m/uL Hgb (13.0-17.5) gm/dL Hct (39.0-53.0) % MCV (80.0-100.0) fL Sodium 131 L (137-145) mmol/L Chloride 92 L (98-107) mmol/L Carbon Dioxide 32 H (22-30) mmol/L Creatinine 0.40 L (0.66-1.25) mg/dL Glucose 123 H (74-99) mg/dL POC Glucose (mg/dL) 134 H 142 H (75-99) mg/dL Microbiology - Last 24 Hours (Table) 04/13/18 21:15 Blood Culture - Preliminary Blood No Growth after 24 hours Assessment and Plan Plan: Assessment: #1. Acute on chronic hypoxemic respiratory failure secondary to acute aspiration pneumonia, bilaterally. Chest x-ray showed new left lower lobe infiltrate, and elevated right hemidiaphragm with right basilar consolidation #2. Acute COPD exacerbation secondary to above #3. Chronic dysphagia and aspiration due to vocal cord paralysis related to history of CVA. Patient receives all of his nutrition via his PEG tube, Jevity 1.5, 2 cans 3 times a day. Patient only takes sips of water and occasionally coffee by mouth #4. Previous episodes of aspiration pneumonia #5. Hyponatremia, patient has a degree of chronic hyponatremia with serum sodium ranging from 129-134 #6. Chronic obstructive pulmonary disease with chronic hypoxemic respiratory failure #7. History multiple myeloma #8. GERD/reflux, history of Phillips esophagus #9. History of rheumatoid arthritis Plan: Continue Levaquin and clindamycin, IV Solu-Medrol, nebulized bronchodilators, Mucinex. Remains congested although improving, will schedule patient for bronchoscopy with BAL tomorrow with Dr. Burton. NPO after midnight. I performed a history & physical examination of the patient and discussed their management with my nurse practitioner, Carol Key. I reviewed the nurse practitioner's note and agree with the documented findings and plan of care. Lung sounds are positive for diffuse rhonchi, and wheezes. The findings and the impression was discussed with the patient. I attest to the documentation by the nurse practitioner. Time with Patient: Less than 30
--- NOTE | 2018-04-15 20:27 | P.PN ---
Subjective Progress Note Date: 04/15/18 (Delayed charting patient seen at 1030) Principal diagnosis: shortness of breath Patient health history of COPD, partial paralysis with history of multiple aspirations status post PEG tube, and Phillips's esophagus who presented to the emergency department after an aspiration event. On arrival to the emergency department he was hypoxic with O2 sat of 88% on 4 L nasal cannula. Initial laboratory analysis was unremarkable other than his chronic hyponatremia. Chest x-ray some mild basilar pneumonia. He was started on Levaquin and admitted for further monitoring. By pulmonary who recommended continuing antibiotics. His home Mucinex was restarted. Plan is for bronchoscopy on 04/16. Patient seen and examined at bedside. Feeling much better than yesterday, coughing up less. Shortness of breath improving. Feeling almost back to baseline. No nausea or vomiting. No diarrhea. Patient states that doing his bolus feeds more often the left liquid seems to agree with him. We discussed the importance of spacing out his flushes accordingly and using half the amount of clot should as he is taking twice the frequency of feedings. Objective - Vital Signs Vital signs: Vital Signs Temp 98.4 F 04/15/18 13:50 Pulse 86 04/15/18 19:56 Resp 16 04/15/18 16:00 BP 139/77 04/15/18 13:50 Pulse Ox 95 04/15/18 19:56 Intake & Output 04/15/18 04/15/18 04/16/18 06:59 18:59 06:59 Weight 64 kg Other: Voiding Method Toilet # Voids 1 - Exam General: Ill appearing, no distress, appears at stated age Derm: warm, dry Head: atraumatic, normocephalic, symmetric Eyes: EOMI, no lid lag, anicteric sclera Mouth: no lip lesion, mucus membranes moist Cardiovascular: S1S2 reg, no murmur, positive posterior tibial pulse bilateral, Lungs: Coarse breath sounds bilateral, no rhonchi, no rales , no accessory muscle use Abdominal: soft, nontender to palpation, no guarding, no appreciable organomegaly Ext: no gross muscle atrophy, no edema, no contractures Neuro: Hyphophonia, Proprioception intact Psych: Alert, oriented, appropriate affect - Labs CBC & Chem 7: 04/15/18 07:37 04/15/18 07:37 Labs: Abnormal Lab Results - Last 24 Hours (Table) 04/14/18 04/15/18 04/15/18 Range/Units 20:47 07:37 07:37 RBC 3.68 L (4.30-5.90) m/uL Hgb 12.8 L (13.0-17.5) gm/dL Hct 37.6 L (39.0-53.0) % MCV 102.1 H (80.0-100.0) fL Sodium 131 L (137-145) mmol/L Chloride 92 L (98-107) mmol/L Carbon Dioxide 32 H (22-30) mmol/L Creatinine 0.40 L (0.66-1.25) mg/dL Glucose 123 H (74-99) mg/dL POC Glucose (mg/dL) 150 H (75-99) mg/dL 04/15/18 04/15/18 04/15/18 Range/Units 07:38 11:22 16:56 RBC (4.30-5.90) m/uL Hgb (13.0-17.5) gm/dL Hct (39.0-53.0) % MCV (80.0-100.0) fL Sodium (137-145) mmol/L Chloride (98-107) mmol/L Carbon Dioxide (22-30) mmol/L Creatinine (0.66-1.25) mg/dL Glucose (74-99) mg/dL POC Glucose (mg/dL) 134 H 142 H 151 H (75-99) mg/dL Microbiology - Last 24 Hours (Table) 04/13/18 21:15 Blood Culture - Preliminary Blood No Growth after 24 hours Assessment and Plan Assessment: Aspiration event with bilateral aspiration pneumonia -Pulmonary recommendations -Levaquin - decrease amount of tube feeding but increase frequency of feedings. 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
[2018-04-15 20:52] LABS: Glucose,Whole Blood 157 mg/dL (75-99)
[2018-04-15] MEDS: MELATONIN 5 MG TABLET PO SCH (22:05)
[2018-04-15] MEDS: ZOLPIDEM 10 MG TAB PO PRN (22:52)
[2018-04-15] MEDS: LEVOFLOXACIN 750MG-D5W PMX 750 MG in DEXTROSE/WATER 1 150ML.BAG IVPB SCH (22:52)
[2018-04-15 23:45] VITALS: RESP 20
[2018-04-16] MEDS: CLINDAMYCIN 600 MG in DEXTROSE 5% IN WATER 50 ML IVPB SCH ×4 (01:00→07:41)
[2018-04-16] MEDS: HEPARIN SODIUM,PORCINE 5,000 UNIT/ML 1 ML VIAL SQ SCH ×2 (01:01→07:42)
[2018-04-16 07:01] VITALS: BP 137/89; TEMP 96.8
[2018-04-16 07:27] LABS: Glucose,Whole Blood 129 mg/dL (75-99)
[2018-04-16] MEDS: ASPIRIN 81 MG PO SCH (07:42)
[2018-04-16] MEDS: LORATADINE-PSEUDOEPH 5-120 MG 1 EACH TAB.ER.12H PO SCH (07:42)
[2018-04-16] MEDS: guaiFENesin 600 MG TABLET.ER PO SCH (07:42)
[2018-04-16] MEDS: METOPROLOL TARTRATE 12.5 MG TAB PO SCH (07:43)
[2018-04-16] MEDS: PANTOPRAZOLE 40 MG TABLET PO SCH (07:43)
[2018-04-16] MEDS: methylPREDNISolone SOD SUCCI 125 MG/2 ML VIAL IV SCH (07:43)
[2018-04-16] MEDS: PRAZOSIN 1 MG CAP PO SCH (07:43)
[2018-04-16] MEDS: IPRATROPIUM-ALBUTEROL 3 ML NEB INHALATION SCH ×3 (08:16→15:27)
[2018-04-16 08:57] LABS: Anion Gap 5 mmol/L; Blood Urea Nitrogen 19 mg/dL (9-20); Calcium 9.2 mg/dL (8.4-10.2); Carbon Dioxide 33 mmol/L (22-30); Chloride 92 mmol/L (98-107); Glucose 109 mg/dL (74-99); Potassium 4.7 mmol/L (3.5-5.1); Sodium 130 mmol/L (137-145)
[2018-04-16 11:20] LABS: Glucose,Whole Blood 116 mg/dL (75-99)
[2018-04-16] MEDS ORDERED: ARTIFICIAL TEARS-HYPROMELLOSE DROPS 15 ML BTL BOTH EYES PRN (12:02)
[2018-04-16] MEDS ORDERED: IV FLUID CONTINUATION 1,000 ML IV ONE (12:14)
[2018-04-16] MEDS ORDERED: GLYCOPYRROLATE 0.2 MG/ML 2 ML VIAL ONE (12:32)
[2018-04-16] MEDS ORDERED: PROPOFOL 10 MG/ML 20 ML VIAL IV ONE (12:32)
[2018-04-16] MEDS ORDERED: KETAMINE 10 MG/ML 20 ML VIAL ONE (12:32)
[2018-04-16] MEDS ORDERED: MIDAZOLAM 2 MG/2 ML VIAL ONE (12:32)
[2018-04-16] MEDS ORDERED: LIDOCAINE 2% INJ 20 MG/ML INTRATRACH ONE (12:42)
--- NOTE | 2018-04-16 13:04 | P.PN ---
Subjective Progress Note Date: 04/16/18 Principal diagnosis: Acute on chronic hypoxemic respiratory failure secondary to acute aspiration pneumonia This is a 73-year-old white male patient who follows with Dr. Matthews from [facility] as his PCP, presented to the emergency department by ambulance, on oral at 2100 for difficulty breathing. 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 Patient was also evaluated for bulbar palsy at the [facility], and the genetic testing came back negative. Patient does bolus tube feedings, with Jevity 1.5 2 8 ounce cans 3 times daily, patient took his evening tube feedings, and shortly afterward started experiencing reflux of gastric contents, and started vigorously coughing , and choking subsequently desaturated into the 70s. Patient had undergone medialization thyroplasty of the left vocal cord by ENT specialist which helped with his symptoms of dyspnea and aspiration, however he continues to have episodes of on and off aspiration especially with liquids. Patient does take some fluids by mouth, small amounts of water, and occasionally coffee, but otherwise no other food. In terms of the COPD, the patient is maintained on Anoro Ellipta and Combivent, and he has a portable oxygen as well as oxygen concentrator on as-needed basis at 2 L/m. Patient has been active on the regular basis, and his COPD has been well controlled. Quit smoking many years ago. Other medical history includes multiple myeloma, rheumatoid arthritis, anxiety. Chest x-ray completed in the emergency room showed left lower lobe infiltrate and elevation of the right hemidiaphragm with right basilar atelectasis or pleural effusion. Patient has ALLERGIES to penicillins, sulfonamides, and tazobactam, hence patient was started on Levaquin, nebulized bronchodilators, IV steroids, and admitted for further management. On 04/15/2018 patient seen in follow-up on medical surgical floor. Feeling and breathing better today, less congested. And sounds are positive for dementia breath sounds over right lower lobe, scattered rhonchi. Patient continues on Levaquin and clindamycin, nebulized bronchodilators, and IV steroids, improving. No fever or chills, currently on 2 L per nasal cannula his pulse ox is 92%. Tolerating his tube feedings, and is instilling 1 can at a time, and waiting in between the second can. No recurrent aspiration. As remains stable , patient is ambulating to the bathroom, when well. Cultures are negative. He is bringing up some sputum. On 04/16/2018 patient seen in follow-up on medical surgical floor. Still remains congested, at times he is able to bring up some sputum, lung sounds are positive for diffuse rhonchi. Continues on abiotic coverage including Levaquin and clindamycin, blood cultures showed no growth after 48 hours, sputum culture was not collected. Patient is awaiting his bronchoscopy today. Remains afebrile, he is ambulating in the room, tolerating activity well. Pulse ox is 92% on 2 L. Today's labs have been reviewed, no CBC, BMP showed sodium of 1:30 , potassium is 4.7, chloride is 92, CO2 is 33, BUN is 19, creatinine is 0.40. Urine Legionella antigen was negative. Objective - Vital Signs Vital signs: Vital Signs Temp 96.8 F L 04/16/18 05:50 Pulse 80 04/16/18 08:27 Resp 20 04/16/18 05:50 BP 137/89 04/16/18 05:50 Pulse Ox 92 L 04/16/18 05:50 Intake & Output 04/15/18 04/16/18 04/16/18 18:59 06:59 18:59 Intake Total 200 Balance 200 Weight 66.5 kg Intake: IV 200 Other: # Voids 1 1 - Exam GENERAL EXAM: Alert, pleasant, 73-year-old white male comfortable in no apparent distress. HEAD: Normocephalic/atraumatic. EYES: Normal reaction of pupils, equal size. Conjunctiva pink, sclera white. NOSE: Clear with pink turbinates. THROAT: No erythema or exudates. NECK: No masses, no JVD, no thyroid enlargement, no adenopathy. CHEST: No chest wall deformity. Symmetrical expansion. LUNGS: Diminished breath sounds over right lower lobe, diffuse rhonchi CVS: Regular rate and rhythm, normal S1 and S2, no gallops, no murmurs, no rubs ABDOMEN: Soft, nontender. No hepatosplenomegaly, normal bowel sounds, no guarding or rigidity. Patient has a left abdominal PEG tube in place EXTREMITIES: No clubbing, no edema, no cyanosis, 2+ pulses and upper and lower extremities. MUSCULOSKELETAL: Muscle strength and tone normal. SPINE: No scoliosis or deformity SKIN: No rashes CENTRAL NERVOUS SYSTEM: Alert and oriented -3. No focal deficits, tone is normal in all 4 extremities. PSYCHIATRIC: Alert and oriented -3. Appropriate affect. Intact judgment and insight. - Labs CBC & Chem 7: 04/15/18 07:37 04/16/18 08:09 Labs: Abnormal Lab Results - Last 24 Hours (Table) 04/15/18 04/15/18 04/16/18 Range/Units 16:56 20:36 07:24 Sodium (137-145) mmol/L Chloride (98-107) mmol/L Carbon Dioxide (22-30) mmol/L Creatinine (0.66-1.25) mg/dL Glucose (74-99) mg/dL POC Glucose (mg/dL) 151 H 157 H 129 H (75-99) mg/dL 04/16/18 04/16/18 Range/Units 08:09 11:15 Sodium 130 L (137-145) mmol/L Chloride 92 L (98-107) mmol/L Carbon Dioxide 33 H (22-30) mmol/L Creatinine 0.40 L (0.66-1.25) mg/dL Glucose 109 H (74-99) mg/dL POC Glucose (mg/dL) 116 H (75-99) mg/dL Microbiology - Last 24 Hours (Table) 04/13/18 21:15 Blood Culture - Preliminary Blood No Growth after 48 hours Assessment and Plan Plan: Assessment: #1. Acute on chronic hypoxemic respiratory failure secondary to acute aspiration pneumonia, bilaterally. Chest x-ray showed new left lower lobe infiltrate, and elevated right hemidiaphragm with right basilar consolidation #2. Acute COPD exacerbation secondary to above #3. Chronic dysphagia and aspiration due to vocal cord paralysis related to history of CVA. Patient receives all of his nutrition via his PEG tube, Jevity 1.5, 2 cans 3 times a day. Patient only takes sips of water and occasionally coffee by mouth #4. Previous episodes of aspiration pneumonia #5. Hyponatremia, patient has a degree of chronic hyponatremia with serum sodium ranging from 129-134 #6. Chronic obstructive pulmonary disease with chronic hypoxemic respiratory failure #7. History multiple myeloma #8. GERD/reflux, history of Phillips esophagus #9. History of rheumatoid arthritis Plan: We'll proceed with bronchoscopy today, continue current antibiotic coverage for now, with Levaquin and clindamycin. Remains congested, although improving, but slowly. Continue IV steroids, nebulized bronchodilators. We'll continue to follow. I performed a history & physical examination of the patient and discussed their management with my nurse practitioner, Carol Key. I reviewed the nurse practitioner's note and agree with the documented findings and plan of care. Lung sounds are positive for diffuse rhonchi, and wheezes. The findings and the impression was discussed with the patient. I attest to the documentation by the nurse practitioner. Time with Patient: Less than 30
--- NOTE | 2018-04-16 13:52 | PCN ---
PROCEDURE NOTE PROCEDURE PERFORMED: Bronchoscopy, bronchoalveolar lavage, washings of both lower lobes, and random washings from both lungs. PREOPERATIVE DIAGNOSIS: Aspiration pneumonia, unable to clear secretions. POSTOPERATIVE DIAGNOSIS: Aspiration pneumonia. Unable to clear secretions. ANESTHESIA USED: IV conscious sedation. Please refer to [facility] documentation. PROCEDURE: The patient was prepared according to the bronchoscopy protocol. The patient was placed in a supine position, O2 was applied via nasal cannula, we monitored his O2 saturation continuously, blood pressure was intermittently monitored, and cardiac rhythm was continuously monitored. After adequate IV conscious sedation, a few mL of lidocaine were instilled into the right naris, bronchoscope was advanced through the right naris down to the area of the vocal cords. Lidocaine was applied over the vocal cords, which were noted to be patent, and the bronchoscope was advanced further down to the trachea, thorough examination was done of the trachea, lui, right upper lobe, right middle lobe, right lower lobe, left upper lobe lingula and left lower lobe. There was evidence of significant thick purulent secretions in both lungs, and in all different lobes but mostly in the right middle lobe, right lower lobe, left lower lobe and lingula. Bronchoalveolar lavage of the lower lobes done on both sides, washings of all the purulent secretions and suctioning done from all different lobes and segments. The procedure was well tolerated, no evidence of any immediate complications. The fluid which was obtained was sent for different diagnostic studies. MMODL / IJN: [id number] /
[2018-04-16 15:40] VITALS: PULSE 82
[2018-04-16] MEDS ORDERED: CLINDAMYCIN 150 MG CAP PO SCH (16:00)
[2018-04-16 18:29] LABS: Appearance,BF Cloudy; Color,BF Yellow
[2018-04-16 18:30] LABS: Nucleated Cells, Body Fluid 19750 /uL; RBC, Body Fluid 2125 /uL
[2018-04-16 18:43] LABS: Mononuclear WBC,Body Fluid 3 %; Polynuclear WBC,Body Fluid 97 %; Total Cells Counted,Body Fluid 100
--- NOTE | 2018-04-16 20:03 | P.DS ---
Providers Date of admission: 04/13/18 22:05 Expected date of discharge: 04/16/18 Attending physician: Tiny Monreal MD Consults: 04/13/18 22:05 Consult Physician Routine Consulting Provider: Gina Magdaleno Consult Reason/Comments: dyspnea Do you want consulting provider notified?: Yes Primary care physician: Harish Alvarado [facility] Course: Discharge Diagnosis: Aspiration event Bilateral aspiration pneumonia Acute exacerbation of COPD Chronic hyponatremia Acute hypoxic respiratory failure Focal cord paralysis Smoldering multiple myeloma History of Phillips's esophagus Hospital Course: Patient health history of COPD, partial paralysis with history of multiple aspirations status post PEG tube, and Phillips's esophagus who presented to the emergency department after an aspiration event. On arrival to the emergency department he was hypoxic with O2 sat of 88% on 4 L nasal cannula. Initial laboratory analysis was unremarkable other than his chronic hyponatremia. Chest x-ray showed mild basilar pneumonia. He was started on Levaquin and admitted for further monitoring. He was seen by pulmonary who recommended continuing antibiotics. His home Mucinex was restarted. His oxygenation improved daily. His tube feeding regimen was transitioned from 2 cans per feeding to 1 can per feeding with increased frequency. We subsequently reduced his free water by half with each feeding. He underwent bronchoscopy on 04/16 was found to have thick purulent secretions. Dr. Mathias suggested starting clindamycin instead of Levaquin to finish treating his aspiration pneumonia. His breathing had much improved. He was determined stable for discharge home. He will complete an additional 5 day course of clindamycin. He will follow-up with Dr. Magdaleno next week and Dr. Matthews as well. He was given a prescription have a repeat basic metabolic profile drawn in one week's time to ensure that his hyponatremia remained stable with adjustment of his tube feeding regimen. Patient seen and examined at bedside. Breathing much improved. No nausea, vomiting, or diarrhea. No chest pain. No questions on discharge injections. Vital signs reviewed and stable. General: non toxic, no distress, appears at stated age Derm: warm, dry Head: atraumatic, normocephalic, symmetric Eyes: EOMI, no lid lag, anicteric sclera Mouth: no lip lesion, mucus membranes moist Cardiovascular: S1S2 reg, no murmur, positive posterior tibial pulse bilateral, Lungs: Course breath sounds bilaterally, no rhonchi, no rales , no accessory muscle use Abdominal: soft, nontender to palpation, no guarding, no appreciable organomegaly Ext: no gross muscle atrophy, no edema, no contractures Neuro: CN II-XI grossly intact, no focal neuro deficits Psych: Alert, oriented, appropriate affect A total of 35 minutes of time were spent preparing this complex discharge summary . Pertinent Studies: Checks left valentine-new left lower lobe pneumonia was persistent increased density right lung base consistent with elevated right hemidiaphragm Procedures: Bronchoscopy with bronchial washing 04/16 Patient Condition at Discharge: Good Plan - Discharge Summary Discharge Rx Participant: No New Discharge Prescriptions: New Clindamycin [Cleocin] 450 mg PO Q8H #45 capsule Continue Omeprazole 20 mg PO BID Loratadine-Pseudoeph 10-240 mg [Claritin-D 24 Hour] 1 tab PO DAILY guaiFENesin [Mucinex] 600 mg PO BID PRN PRN Reason: Congestion Ipratropium/Albuterol Sulfate [Combivent Respimat Inhaler] 1 puff INHALATION RT-QID Multivit-Min/FA/Lycopen/Lutein [Centrum Silver Men Tablet] 1 tab PO DAILY Metoprolol Tartrate [Lopressor] 12.5 mg PO DAILY Aspirin EC [Ecotrin Low Dose] 81 mg PO DAILY Albuterol Sulfate [Proventil Hfa] 2 puff INHALATION RT-QID PRN PRN Reason: Shortness Of Breath Zolpidem [Ambien] 10 mg PO HS PRN PRN Reason: Insomnia Prazosin [Minipress] 1 mg PO DAILY Melatonin 5 mg PO HS Discharge Medication List Omeprazole 20 mg PO BID 07/31/14 [History] Ipratropium/Albuterol Sulfate [Combivent Respimat Inhaler] 1 puff INHALATION RT- QID 05/01/17 [History] Loratadine-Pseudoeph 10-240 mg [Claritin-D 24 Hour] 1 tab PO DAILY 05/01/17 [ History] guaiFENesin [Mucinex] 600 mg PO BID PRN 05/01/17 [History] Multivit-Min/FA/Lycopen/Lutein [Centrum Silver Men Tablet] 1 tab PO DAILY [History] Albuterol Sulfate [Proventil Hfa] 2 puff INHALATION RT-QID PRN 01/28/18 [History ] Aspirin EC [Ecotrin Low Dose] 81 mg PO DAILY 01/28/18 [History] Metoprolol Tartrate [Lopressor] 12.5 mg PO DAILY 01/28/18 [History] Melatonin 5 mg PO HS 04/13/18 [History] Prazosin [Minipress] 1 mg PO DAILY 04/13/18 [History] Zolpidem [Ambien] 10 mg PO HS PRN 04/13/18 [History] Clindamycin [Cleocin] 450 mg PO Q8H #45 capsule 04/16/18 [Rx] Follow up Appointment(s)/Referral(s): Harish Alvarado DO [Primary Care Provider] - 3 Days [facility], [REFERRING] - As Needed (Tube feedings) Gina Magdaleno MD [STAFF PHYSICIAN] - 1 Week Ambulatory/Diagnostic Orders: Basic Metabolic Panel [LAB.AMB] Time Frame: 1 Week, Location: None Selected Patient Instructions/Handouts: Aspiration Pneumonia (DC), COPD (Chronic Obstructive Pulmonary Disease) (DC) Activity/Diet/Wound Care/Special Instructions: Continue current tube feeding regiment as adjusted in the hospital Activity as tolerated. Discharge Disposition: HOME WITH HOME HEALTH SERVICES
== END 2018-04-16 17:33 | disposition home health service (06) | DRG 166 ==
LOC: SUPCPDRO 20:59 → EC 20:59 → 4MS4W 22:05
PROVIDERS: ADMIT Internal Medicine; ATTEND Internal Medicine
PROC: 0BDJ8ZX Extraction of Left Lower Lung Lobe, Via Natural or Artificial Opening Endoscopic, Diagnostic (ICD-10-PCS; 2018-04-16)
PROC: 0BDD8ZX Extraction of Right Middle Lung Lobe, Via Natural or Artificial Opening Endoscopic, Diagnostic (ICD-10-PCS; 2018-04-16)
PROC: 0BDH8ZX Extraction of Lung Lingula, Via Natural or Artificial Opening Endoscopic, Diagnostic (ICD-10-PCS; 2018-04-16)
PROC: 0BDF8ZX Extraction of Right Lower Lung Lobe, Via Natural or Artificial Opening Endoscopic, Diagnostic (ICD-10-PCS; 2018-04-16)
PROC: 0B9J8ZX Drainage of Left Lower Lung Lobe, Via Natural or Artificial Opening Endoscopic, Diagnostic (ICD-10-PCS; principal; 2018-04-16 08:05)
PROC: 0B9F8ZX Drainage of Right Lower Lung Lobe, Via Natural or Artificial Opening Endoscopic, Diagnostic (ICD-10-PCS; 2018-04-16 08:05)
DX: J69.0 Pneumonitis due to inhalation of food and vomit (principal); J96.21 Acute and chronic respiratory failure with hypoxia; J44.1 Chronic obstructive pulmonary disease with (acute) exacerbation; C90.00 Multiple myeloma not having achieved remission; E87.1 Hypo-osmolality and hyponatremia; J38.00 Paralysis of vocal cords and larynx, unspecified; R13.10 Dysphagia, unspecified; E86.0 Dehydration; Z93.1 Gastrostomy status; M06.9 Rheumatoid arthritis, unspecified; F03.90 Unspecified dementia, unspecified severity, without behavioral disturbance, psychotic disturbance, mood disturbance, and anxiety; K21.9 Gastro-esophageal reflux disease without esophagitis; K22.70 Barrett's esophagus without dysplasia; K13.79 Other lesions of oral mucosa; Z79.82 Long term (current) use of aspirin; Z79.899 Other long term (current) drug therapy; Z87.891 Personal history of nicotine dependence; Z90.49 Acquired absence of other specified parts of digestive tract; Z86.59 Personal history of other mental and behavioral disorders; Z86.73 Personal history of transient ischemic attack (TIA), and cerebral infarction without residual deficits; Z88.1 Allergy status to other antibiotic agents; Z88.0 Allergy status to penicillin; Z88.2 Allergy status to sulfonamides; Z80.0 Family history of malignant neoplasm of digestive organs; Z80.1 Family history of malignant neoplasm of trachea, bronchus and lung; Z80.7 Family history of other malignant neoplasms of lymphoid, hematopoietic and related tissues; Z82.49 Family history of ischemic heart disease and other diseases of the circulatory system
CPT/HCPCS: 31624; 31645; 36415; 71045; 71046; 80048; 80053; 82550; 82553; 83036; 84484; 85025; 85027; 85610; 85730; 87040; 87070; 87102; 87116; 87205; 87206; 87449; 89050; 93005; 94640; 94760; 96361; 96365; 96374; 99285

== ENCOUNTER 2018-04-19 00:48 | Emergency (ER) | payer MEDICARE ==
[2018-04-19 01:12] LABS: Basophils % (A) 0 %; Eosinophils # (A) 0.1 k/uL (0-0.7); Eosinophils % (A) 2 %; HCT 40.2 % (39.0-53.0); HGB 13.6 gm/dL (13.0-17.5); Lymphocytes # (A) 0.9 k/uL (1.0-4.8); Lymphocytes % (A) 15 %; MCH 34.6 pg (25.0-35.0); MCHC 33.9 g/dL (31.0-37.0); MCV 102.1 fL (80.0-100.0); Macrocytosis Slight; Mean Platelet Volume 7.9; Monocytes # (A) 0.3 k/uL (0-1.0); Monocytes % (A) 6 %; Neutrophils # (A) 4.3 k/uL (1.3-7.7); Neutrophils % (A) 76 %; Platelet Count 213 k/uL (150-450); RBC 3.93 m/uL (4.30-5.90); RDW 13.2 % (11.5-15.5); WBC 5.7 k/uL (3.8-10.6)
[2018-04-19 01:20] LABS: Partial Thromboplastin Time 23.4 sec (22.0-30.0)
[2018-04-19 01:23] LABS: Anion Gap 7 mmol/L; Calcium 8.9 mg/dL (8.4-10.2); Carbon Dioxide 33 mmol/L (22-30); Chloride 91 mmol/L (98-107); Glucose 104 mg/dL (74-99); Sodium 131 mmol/L (137-145); Total Bilirubin 0.8 mg/dL (0.2-1.3)
[2018-04-19 01:26] LABS: Albumin 3.2 g/dL (3.5-5.0); Blood Urea Nitrogen 26 mg/dL (9-20); Magnesium 2.1 mg/dL (1.6-2.3); Potassium 5.1 mmol/L (3.5-5.1); Total Protein 6.9 g/dL (6.3-8.2)
--- NOTE | 2018-04-19 01:26 | XR ---
EXAMINATION TYPE: XR chest 1V portable DATE OF EXAM: 04/19/2018 COMPARISON: 04/15/2018 HISTORY: Difficulty breathing TECHNIQUE: Single frontal view of the chest is obtained. FINDINGS: There is blunting of right costophrenic angle. There is probably a subpulmonic pleural eff usion. There is some linear density at the left lung base consistent with subsegmental atelectasis. T here is no heart failure. Thoracic aorta is atheromatous. There are chest leads. IMPRESSION: There is subpulmonic right pleural effusion and probably some infiltrate and atelectasis at the right lung base that is unchanged. Left lower lobe infiltrate and atelectasis unchanged. No h eart failure.
[2018-04-19 01:27] LABS: ALT 40 U/L (21-72); AST 39 U/L (17-59); Alkaline Phosphatase 85 U/L (38-126)
[2018-04-19 01:39] LABS: Creatine Kinase 74 U/L (55-170)
[2018-04-19 01:52] LABS: Creatine Kinase MB 2.6 ng/mL (0.0-2.4); Troponin I <0.012 ng/mL (0.000-0.034)
[2018-04-19] MEDS ORDERED: IPRATROPIUM-ALBUTEROL 3 ML NEB INHALATION STA (02:18)
[2018-04-19] MEDS ORDERED: SODIUM CHLORIDE 0.9% 500 ML IV STA (02:29)
[2018-04-19 03:02] LABS: Appearance,Urine Clear (Clear); Bilirubin,Urine Negative (Negative); Blood,Urine Negative (Negative); Color,Urine Yellow; Glucose,Urine (UA) Negative (Negative); Ketones,Urine Negative (Negative); Leukocyte Esterase,Urine Negative (Negative); Nitrite,Urine Negative (Negative); Protein,Urine Trace (Negative); Specific Gravity,Urine 1.021 (1.001-1.035)
--- NOTE | 2018-04-19 03:46 | ED ---
SOB HPI - General Chief Complaint: Shortness of Breath Stated Complaint: AIDE Time Seen by Provider: 04/19/18 00:56 Source: EMS Mode of arrival: EMS Limitations: altered mental status, physical limitation - History of Present Illness Initial Comments: This patient is a 73-year-old man with a history of COPD as well as a neuromuscular disorder that he did not recall name of. Patient states he is currently being worked up for this new diagnosis. He comes tonight because she was feeling a little more short of breath than usual, having a nonproductive cough, and his stated that he appeared confused. Denying fever or chills. No productive cough. No chest pain. No leg pain or swelling MD Complaint: shortness of breath -: hour(s) Severity: mild Consistency: constant Improves With: nothing Worsens With: nothing Known History Of: COPD Associated Symptoms: denies other symptoms - Related Data Home Medications Medication Instructions Recorded Confirmed Omeprazole 20 mg PEG/G-TUBE BID 07/31/14 04/22/18 Ipratropium/Albuterol Sulfate 1 puff INHALATION RT-QID 05/01/17 04/22/18 [Combivent Respimat Inhaler] Loratadine-Pseudoeph 10-240 mg 1 tab PEG/G-TUBE DAILY 05/01/17 04/22/18 [Claritin-D 24 Hour] Multivit-Min/FA/Lycopen/Lutein 1 tab PEG/G-TUBE DAILY 08/09/17 04/22/18 [Centrum Silver Men Tablet] Albuterol Sulfate [Proventil Hfa] 2 puff INHALATION RT-QID PRN 01/28/18 04/22/18 Aspirin EC [Ecotrin Low Dose] 81 mg PEG/G-TUBE DAILY 01/28/18 04/22/18 Metoprolol Tartrate [Lopressor] 12.5 mg PEG/G-TUBE DAILY 01/28/18 04/22/18 Melatonin 5 mg PEG/G-TUBE HS 04/13/18 04/22/18 Prazosin [Minipress] 1 mg PEG/G-TUBE DAILY 04/13/18 04/22/18 Zolpidem [Ambien] 10 mg PEG/G-TUBE HS PRN 04/13/18 04/22/18 Tamsulosin HCl [Flomax] 1 tablet PEG/G-TUBE DAILY 04/19/18 04/22/18 Acetylcysteine [Mucomyst] 4 ml PO DAILY PRN 04/22/18 04/22/18 guaiFENesin [Mucinex] 600 mg PO BID 04/23/18 04/23/18 Previous Rx's Medication Instructions Recorded Cefdinir Oral Susp [Omnicef Oral 15 ml PO Q12H #90 ml 04/26/18 Susp] Allergies Allergy/AdvReac Type Severity Reaction Status Date / Time Penicillins Allergy Itching Verified 04/22/18 11:11 piperacillin [From Zosyn] Allergy Itching Verified 04/22/18 11:11 Sulfa (Sulfonamide Allergy Rash/Hives Verified 04/22/18 11:11 Antibiotics) tazobactam [From Zosyn] Allergy Itching Verified 04/22/18 11:11 Review of Systems ROS Statement: Those systems with pertinent positive or pertinent negative responses have been documented in the HPI. ROS Other: All systems not noted in ROS Statement are negative. Constitutional: Denies: fever, chills Respiratory: Reports: cough, dyspnea. 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 Gaping esophagus, barretts esophagus. EGD,. 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 Nasal reduction, PEG tube placement , local cord surgery, Additional Past Anesthesia/Blood Transfusion Reaction / Comment(s): PARALYZED VOCAL CHORDS Past Psychological History: Anxiety Smoking Status: Former smoker Past Alcohol Use History: Occasional Past Drug Use History: None Reported - Past Family History Sister(s) Additional Family Medical History / Comment(s): passed colon CA Brother(s) Additional Family Medical History / Comment(s): sarcidosis Mother Additional Family Medical History / Comment(s): lung CA Son(s) Family Medical History: Hypertension Additional Family Medical History / Comment(s): lymphoma, sarcoidosis General Exam Limitations: altered mental status, physical limitation General appearance: alert, in no apparent distress Head exam: Present: atraumatic, normocephalic Eye exam: Present: normal appearance. Absent: scleral icterus, conjunctival injection ENT exam: Present: normal oropharynx Respiratory exam: Present: wheezes. Absent: respiratory distress, rales, rhonchi, stridor, chest wall tenderness, accessory muscle use, decreased breath sounds Cardiovascular Exam: Present: regular rate, normal rhythm, normal heart sounds. Absent: systolic murmur, diastolic murmur, rubs, gallop GI/Abdominal exam: Present: soft. Absent: tenderness, guarding Extremities exam: Present: normal inspection, normal capillary refill. Absent: pedal edema, calf tenderness Neurological exam: Present: alert, oriented X3, CN II-XII intact, other (Mild dysarthria which the patient's states is his baseline). Absent: motor sensory deficit Skin exam: Present: warm, dry, intact, normal color. Absent: rash Course Vital Signs 04/19/18 04/19/18 04/19/18 00:50 02:15 02:36 Temperature 96.9 F L Pulse Rate 130 H 83 88 Respiratory 32 H 26 H Rate Blood Pressure 94/63 91/62 O2 Sat by Pulse 100 95 Oximetry 04/19/18 04/19/18 04/19/18 02:40 02:44 04:09 Temperature 97.7 F Pulse Rate 84 83 81 Respiratory 20 18 Rate Blood Pressure 105/72 108/71 O2 Sat by Pulse 99 97 Oximetry 04/19/18 04:15 Temperature Pulse Rate 85 Respiratory 18 Rate Blood Pressure 120/74 O2 Sat by Pulse 97 Oximetry Medical Decision Making - Medical Decision Making Following patient's evaluation, he is reassessed and feels well, wants go home. We discussed appropriate follow-up as well as further care and return parameters. - Lab Data Result diagrams: 04/19/18 00:55 04/19/18 00:55 Lab Results 04/19/18 04/19/18 04/19/18 Range/Units 00:55 00:55 00:55 WBC 5.7 (3.8-10.6) k/uL RBC 3.93 L (4.30-5.90) m/uL Hgb 13.6 (13.0-17.5) gm/dL Hct 40.2 (39.0-53.0) % MCV 102.1 H (80.0-100.0) fL MCH 34.6 (25.0-35.0) pg MCHC 33.9 (31.0-37.0) g/dL RDW 13.2 (11.5-15.5) % Plt Count 213 (150-450) k/uL Neutrophils % 76 % Lymphocytes % 15 % Monocytes % 6 % Eosinophils % 2 % Basophils % 0 % Neutrophils # 4.3 (1.3-7.7) k/uL Lymphocytes # 0.9 L (1.0-4.8) k/uL Monocytes # 0.3 (0-1.0) k/uL Eosinophils # 0.1 (0-0.7) k/uL Basophils # 0.0 (0-0.2) k/uL Macrocytosis Slight PT (9.0-12.0) sec INR (<1.2) APTT (22.0-30.0) sec Sodium 131 L (137-145) mmol/L Potassium 5.1 (3.5-5.1) mmol/L Chloride 91 L (98-107) mmol/L Carbon Dioxide 33 H (22-30) mmol/L Anion Gap 7 mmol/L BUN 26 H (9-20) mg/dL Creatinine 0.50 L (0.66-1.25) mg/dL Est GFR (CKD-EPI)AfAm >90 (>60 ml/min/1.73 sqM) Est GFR (CKD-EPI)NonAf >90 (>60 ml/min/1.73 sqM) Glucose 104 H (74-99) mg/dL Calcium 8.9 (8.4-10.2) mg/dL Magnesium 2.1 (1.6-2.3) mg/dL Total Bilirubin 0.8 (0.2-1.3) mg/dL AST 39 (17-59) U/L ALT 40 (21-72) U/L Alkaline Phosphatase 85 (38-126) U/L Total Creatine Kinase 74 (55-170) U/L CK-MB (CK-2) 2.6 H (0.0-2.4) ng/mL CK-MB (CK-2) Rel Index 3.5 Troponin I <0.012 (0.000-0.034) ng/mL NT-Pro-B Natriuret Pep pg/mL Total Protein 6.9 (6.3-8.2) g/dL Albumin 3.2 L (3.5-5.0) g/dL Urine Color Urine Appearance (Clear) Urine pH (5.0-8.0) Ur Specific [place] (1.001-1.035) Urine Protein (Negative) Urine Glucose (UA) (Negative) Urine Ketones (Negative) Urine Blood (Negative) Urine Nitrite (Negative) Urine Bilirubin (Negative) Urine Urobilinogen (<2.0) mg/dL Ur Leukocyte Esterase (Negative) 04/19/18 04/19/18 04/19/18 Range/Units 00:55 00:55 02:37 WBC (3.8-10.6) k/uL RBC (4.30-5.90) m/uL Hgb (13.0-17.5) gm/dL Hct (39.0-53.0) % MCV (80.0-100.0) fL MCH (25.0-35.0) pg MCHC (31.0-37.0) g/dL RDW (11.5-15.5) % Plt Count (150-450) k/uL Neutrophils % % Lymphocytes % % Monocytes % % Eosinophils % % Basophils % % Neutrophils # (1.3-7.7) k/uL Lymphocytes # (1.0-4.8) k/uL Monocytes # (0-1.0) k/uL Eosinophils # (0-0.7) k/uL Basophils # (0-0.2) k/uL Macrocytosis PT 10.0 (9.0-12.0) sec INR 1.0 (<1.2) APTT 23.4 (22.0-30.0) sec Sodium (137-145) mmol/L Potassium (3.5-5.1) mmol/L Chloride (98-107) mmol/L Carbon Dioxide (22-30) mmol/L Anion Gap mmol/L BUN (9-20) mg/dL Creatinine (0.66-1.25) mg/dL Est GFR (CKD-EPI)AfAm (>60 ml/min/1.73 sqM) Est GFR (CKD-EPI)NonAf (>60 ml/min/1.73 sqM) Glucose (74-99) mg/dL Calcium (8.4-10.2) mg/dL Magnesium (1.6-2.3) mg/dL Total Bilirubin (0.2-1.3) mg/dL AST (17-59) U/L ALT (21-72) U/L Alkaline Phosphatase (38-126) U/L Total Creatine Kinase (55-170) U/L CK-MB (CK-2) (0.0-2.4) ng/mL CK-MB (CK-2) Rel Index Troponin I (0.000-0.034) ng/mL NT-Pro-B Natriuret Pep 5710 pg/mL Total Protein (6.3-8.2) g/dL Albumin (3.5-5.0) g/dL Urine Color Yellow Urine Appearance Clear (Clear) Urine pH 6.0 (5.0-8.0) Ur Specific [place] 1.021 (1.001-1.035) Urine Protein Trace H (Negative) Urine Glucose (UA) Negative (Negative) Urine Ketones Negative (Negative) Urine Blood Negative (Negative) Urine Nitrite Negative (Negative) Urine Bilirubin Negative (Negative) Urine Urobilinogen 6.0 (<2.0) mg/dL Ur Leukocyte Esterase Negative (Negative) Disposition Clinical Impression: COPD exacerbation, Dehydration Disposition: HOME SELF-CARE Condition: Fair Instructions: Dehydration (ED), COPD (Chronic Obstructive Pulmonary Disease) ( ED) Is patient prescribed a controlled substance at d/c from ED?: No Referrals: Harish Alvarado DO [Primary Care Provider] - 1-2 days
[2018-04-19 04:14] VITALS: RESP 18; TEMP 97.7
[2018-04-19 04:16] VITALS: BP 120/74; PULSE 85
== END 2018-04-19 04:33 | disposition home or self-care (01) ==
LOC: EC 00:48
DX: J44.1 Chronic obstructive pulmonary disease with (acute) exacerbation (principal); E86.0 Dehydration; K21.9 Gastro-esophageal reflux disease without esophagitis; F41.9 Anxiety disorder, unspecified; Z87.891 Personal history of nicotine dependence; Z86.73 Personal history of transient ischemic attack (TIA), and cerebral infarction without residual deficits; Z90.49 Acquired absence of other specified parts of digestive tract; Z98.890 Other specified postprocedural states; Z79.82 Long term (current) use of aspirin; Z79.899 Other long term (current) drug therapy; Z88.0 Allergy status to penicillin; Z88.1 Allergy status to other antibiotic agents; Z88.2 Allergy status to sulfonamides
CPT/HCPCS: 36415; 71045; 80053; 81003; 82550; 82553; 83735; 83880; 84484; 85025; 85610; 85730; 87040; 93005; 96360; 99285

== ENCOUNTER 2018-04-22 10:36 | Inpatient (IN) | payer MEDICARE ==
[2018-04-22] MEDS ORDERED: SODIUM CHLORIDE 0.9% 500 ML IV STA (10:38)
[2018-04-22] MEDS ORDERED: IPRATROPIUM-ALBUTEROL 3 ML NEB INHALATION STA (10:38)
[2018-04-22 11:15] LABS: Basophils % (A) 0 %; Eosinophils # (A) 0.1 k/uL (0-0.7); Eosinophils % (A) 1 %; HCT 38.3 % (39.0-53.0); Lymphocytes # (A) 0.4 k/uL (1.0-4.8); Lymphocytes % (A) 8 %; MCHC 33.9 g/dL (31.0-37.0); MCV 103.1 fL (80.0-100.0); Macrocytosis Slight; Mean Platelet Volume 7.7; Monocytes # (A) 0.3 k/uL (0-1.0); Monocytes % (A) 5 %; Neutrophils # (A) 4.8 k/uL (1.3-7.7); Neutrophils % (A) 85 %; Platelet Count 227 k/uL (150-450); RBC 3.71 m/uL (4.30-5.90); RDW 13.2 % (11.5-15.5); WBC 5.6 k/uL (3.8-10.6)
[2018-04-22 11:25] LABS: Partial Thromboplastin Time 23.7 sec (22.0-30.0); Prothrombin Time 9.7 sec (9.0-12.0)
[2018-04-22 11:26] LABS: ALT 33 U/L (21-72); AST 28 U/L (17-59); Albumin 3.1 g/dL (3.5-5.0); Alkaline Phosphatase 92 U/L (38-126); Anion Gap 5 mmol/L; Blood Urea Nitrogen 20 mg/dL (9-20); Calcium 8.7 mg/dL (8.4-10.2); Carbon Dioxide 34 mmol/L (22-30); Chloride 92 mmol/L (98-107); Glucose 104 mg/dL (74-99); Magnesium 1.9 mg/dL (1.6-2.3); Potassium 4.7 mmol/L (3.5-5.1); Sodium 131 mmol/L (137-145); Total Bilirubin 0.6 mg/dL (0.2-1.3); Total Protein 6.3 g/dL (6.3-8.2)
--- NOTE | 2018-04-22 11:31 | ED ---
General Adult HPI - General Chief complaint: Shortness of Breath Stated complaint: low pulse ox Time Seen by Provider: 04/22/18 10:37 Source: patient, EMS, RN notes reviewed, old records reviewed Mode of arrival: EMS Limitations: no limitations - History of Present Illness Initial comments: 73-year-old male history of COPD and multiple myeloma presents for evaluation of cough and dyspnea. Patient has had recent admission with aspiration pneumonia. He had completed antibiotics this morning. He was noted at home to be both hypoxic and hypotensive. EMS reported blood pressure 70 systolic, oxygen saturation initially in the 70s however this responded to supplemental oxygen. Patient is normally on 2 L home O2 which he does use intermittently. He is being worked up at the [facility] for neuromuscular weakness, possible amyloidosis. Patient denies fever or chills. Denies chest pain. Cough is productive of yellow sputum. - Related Data Home Medications Medication Instructions Recorded Confirmed Omeprazole 20 mg PEG/G-TUBE BID 07/31/14 04/22/18 Ipratropium/Albuterol Sulfate 1 puff INHALATION RT-QID 05/01/17 04/22/18 [Combivent Respimat Inhaler] Loratadine-Pseudoeph 10-240 mg 1 tab PEG/G-TUBE DAILY 05/01/17 04/22/18 [Claritin-D 24 Hour] Multivit-Min/FA/Lycopen/Lutein 1 tab PEG/G-TUBE DAILY 08/09/17 04/22/18 [Centrum Silver Men Tablet] Albuterol Sulfate [Proventil Hfa] 2 puff INHALATION RT-QID PRN 01/28/18 04/22/18 Aspirin EC [Ecotrin Low Dose] 81 mg PEG/G-TUBE DAILY 01/28/18 04/22/18 Metoprolol Tartrate [Lopressor] 12.5 mg PEG/G-TUBE DAILY 01/28/18 04/22/18 Melatonin 5 mg PEG/G-TUBE HS 04/13/18 04/22/18 Prazosin [Minipress] 1 mg PEG/G-TUBE DAILY 04/13/18 04/22/18 Zolpidem [Ambien] 10 mg PEG/G-TUBE HS PRN 04/13/18 04/22/18 Tamsulosin HCl [Flomax] 1 tablet PEG/G-TUBE DAILY 04/19/18 04/22/18 Acetylcysteine [Mucomyst] 4 ml PO DAILY PRN 04/22/18 04/22/18 Allergies Allergy/AdvReac Type Severity Reaction Status Date / Time Penicillins Allergy Itching Verified 04/22/18 11:11 piperacillin [From Zosyn] Allergy Itching Verified 04/22/18 11:11 Sulfa (Sulfonamide Allergy Rash/Hives Verified 04/22/18 11:11 Antibiotics) tazobactam [From Zosyn] Allergy Itching Verified 04/22/18 11:11 Review of Systems ROS Statement: Those systems with pertinent positive or pertinent negative responses have been documented in the HPI. ROS Other: All systems not noted in ROS Statement are negative. 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 Gaping esophagus, barretts esophagus. EGD,. 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 Nasal reduction, PEG tube placement , local cord surgery, Additional Past Anesthesia/Blood Transfusion Reaction / Comment(s): PARALYZED VOCAL CHORDS Past Psychological History: Anxiety Smoking Status: Former smoker Past Alcohol Use History: Occasional Past Drug Use History: None Reported - Past Family History Sister(s) Additional Family Medical History / Comment(s): passed colon CA Brother(s) Additional Family Medical History / Comment(s): sarcidosis Mother Additional Family Medical History / Comment(s): lung CA Son(s) Family Medical History: Hypertension Additional Family Medical History / Comment(s): lymphoma, sarcoidosis General Exam Limitations: no limitations General appearance: alert, in no apparent distress Head exam: Present: atraumatic, normocephalic Eye exam: Present: normal appearance, PERRL ENT exam: Present: normal exam Neck exam: Present: normal inspection. Absent: tenderness, meningismus Respiratory exam: Present: wheezes, rhonchi Cardiovascular Exam: Present: regular rate, normal rhythm GI/Abdominal exam: Present: soft, other (PEG tube). Absent: distended, tenderness Extremities exam: Present: normal inspection, normal capillary refill Neurological exam: Present: alert, oriented X3 Psychiatric exam: Present: normal affect, normal mood Skin exam: Present: warm, dry, intact. Absent: cyanosis, diaphoretic Course Vital Signs 04/22/18 04/22/18 04/22/18 10:39 11:05 11:07 Temperature 97.0 F L Pulse Rate 69 67 Respiratory 18 20 Rate Blood Pressure 87/54 O2 Sat by Pulse 99 Oximetry 04/22/18 04/22/18 04/22/18 11:15 11:50 13:20 Temperature Pulse Rate 69 67 66 Respiratory 18 18 Rate Blood Pressure 122/77 130/79 O2 Sat by Pulse 98 99 Oximetry EKG Findings - EKG Comments: EKG Findings:: EKG: Normal sinus rhythm, there is some baseline artifact, no ST segment elevation, rate of 66, AK interval 188, QRS duration 82, QTC 383 Medical Decision Making - Medical Decision Making 73-year-old male presenting with hypotension, hypoxia, and dyspnea. Chest x- ray obtained, does show concern for bilateral atelectasis versus infiltrate. Patient has normal white blood cell count, stable hemoglobin, troponin and BNP are negative. Urinalysis is pending. Given the initial vital signs patient will be admitted for treatment of presumed early pneumonia. Given antibiotics in the emergency department. Patient is evaluated by Dr. España, will be admitted for further treatment and evaluation. - Lab Data Result diagrams: 04/22/18 10:55 04/22/18 10:55 Lab Results 04/22/18 04/22/18 04/22/18 Range/Units 10:55 10:55 10:55 WBC 5.6 (3.8-10.6) k/uL RBC 3.71 L (4.30-5.90) m/uL Hgb 13.0 (13.0-17.5) gm/dL Hct 38.3 L (39.0-53.0) % MCV 103.1 H (80.0-100.0) fL MCH 35.0 (25.0-35.0) pg MCHC 33.9 (31.0-37.0) g/dL RDW 13.2 (11.5-15.5) % Plt Count 227 (150-450) k/uL Neutrophils % 85 % Lymphocytes % 8 % Monocytes % 5 % Eosinophils % 1 % Basophils % 0 % Neutrophils # 4.8 (1.3-7.7) k/uL Lymphocytes # 0.4 L (1.0-4.8) k/uL Monocytes # 0.3 (0-1.0) k/uL Eosinophils # 0.1 (0-0.7) k/uL Basophils # 0.0 (0-0.2) k/uL Macrocytosis Slight PT (9.0-12.0) sec INR (<1.2) APTT (22.0-30.0) sec Sodium 131 L (137-145) mmol/L Potassium 4.7 (3.5-5.1) mmol/L Chloride 92 L (98-107) mmol/L Carbon Dioxide 34 H (22-30) mmol/L Anion Gap 5 mmol/L BUN 20 (9-20) mg/dL Creatinine 0.54 L (0.66-1.25) mg/dL Est GFR (CKD-EPI)AfAm >90 (>60 ml/min/1.73 sqM) Est GFR (CKD-EPI)NonAf >90 (>60 ml/min/1.73 sqM) Glucose 104 H (74-99) mg/dL Calcium 8.7 (8.4-10.2) mg/dL Magnesium 1.9 (1.6-2.3) mg/dL Total Bilirubin 0.6 (0.2-1.3) mg/dL AST 28 (17-59) U/L ALT 33 (21-72) U/L Alkaline Phosphatase 92 (38-126) U/L Total Creatine Kinase 60 (55-170) U/L CK-MB (CK-2) 2.1 (0.0-2.4) ng/mL CK-MB (CK-2) Rel Index 3.5 Troponin I <0.012 (0.000-0.034) ng/mL NT-Pro-B Natriuret Pep pg/mL Total Protein 6.3 (6.3-8.2) g/dL Albumin 3.1 L (3.5-5.0) g/dL Urine Color Urine Appearance (Clear) Urine pH (5.0-8.0) Ur Specific [place] (1.001-1.035) Urine Protein (Negative) Urine Glucose (UA) (Negative) Urine Ketones (Negative) Urine Blood (Negative) Urine Nitrite (Negative) Urine Bilirubin (Negative) Urine Urobilinogen (<2.0) mg/dL Ur Leukocyte Esterase (Negative) Urine RBC (0-5) /hpf Urine WBC (0-5) /hpf Ur Squamous Epith Cells (0-4) /hpf Amorphous Sediment (None) /hpf Urine Mucus (None) /hpf 04/22/18 04/22/18 04/22/18 Range/Units 10:55 10:55 13:00 WBC (3.8-10.6) k/uL RBC (4.30-5.90) m/uL Hgb (13.0-17.5) gm/dL Hct (39.0-53.0) % MCV (80.0-100.0) fL MCH (25.0-35.0) pg MCHC (31.0-37.0) g/dL RDW (11.5-15.5) % Plt Count (150-450) k/uL Neutrophils % % Lymphocytes % % Monocytes % % Eosinophils % % Basophils % % Neutrophils # (1.3-7.7) k/uL Lymphocytes # (1.0-4.8) k/uL Monocytes # (0-1.0) k/uL Eosinophils # (0-0.7) k/uL Basophils # (0-0.2) k/uL Macrocytosis PT 9.7 (9.0-12.0) sec INR 1.0 (<1.2) APTT 23.7 (22.0-30.0) sec Sodium (137-145) mmol/L Potassium (3.5-5.1) mmol/L Chloride (98-107) mmol/L Carbon Dioxide (22-30) mmol/L Anion Gap mmol/L BUN (9-20) mg/dL Creatinine (0.66-1.25) mg/dL Est GFR (CKD-EPI)AfAm (>60 ml/min/1.73 sqM) Est GFR (CKD-EPI)NonAf (>60 ml/min/1.73 sqM) Glucose (74-99) mg/dL Calcium (8.4-10.2) mg/dL Magnesium (1.6-2.3) mg/dL Total Bilirubin (0.2-1.3) mg/dL AST (17-59) U/L ALT (21-72) U/L Alkaline Phosphatase (38-126) U/L Total Creatine Kinase (55-170) U/L CK-MB (CK-2) (0.0-2.4) ng/mL CK-MB (CK-2) Rel Index Troponin I (0.000-0.034) ng/mL NT-Pro-B Natriuret Pep 110 pg/mL Total Protein (6.3-8.2) g/dL Albumin (3.5-5.0) g/dL Urine Color Yellow Urine Appearance Cloudy (Clear) Urine pH 8.0 (5.0-8.0) Ur Specific [place] 1.018 (1.001-1.035) Urine Protein 1+ H (Negative) Urine Glucose (UA) Negative (Negative) Urine Ketones Negative (Negative) Urine Blood Trace H (Negative) Urine Nitrite Negative (Negative) Urine Bilirubin Negative (Negative) Urine Urobilinogen 8.0 (<2.0) mg/dL Ur Leukocyte Esterase Negative (Negative) Urine RBC 26 H (0-5) /hpf Urine WBC 2 (0-5) /hpf Ur Squamous Epith Cells 1 (0-4) /hpf Amorphous Sediment Rare H (None) /hpf Urine Mucus Rare H (None) /hpf Disposition Clinical Impression: COPD exacerbation, Pneumonia Disposition: ADMITTED IP TO THIS [facility] Condition: Stable Is patient prescribed a controlled substance at d/c from ED?: No Referrals: Harish Alvarado DO [Primary Care Provider] - 1-2 days Decision to Admit Reason: Admit from EC Decision Date: 04/22/18 Decision Time: 13:49
[2018-04-22 11:33] LABS: Creatine Kinase 60 U/L (55-170)
[2018-04-22 11:46] LABS: Creatine Kinase MB 2.1 ng/mL (0.0-2.4); Troponin I <0.012 ng/mL (0.000-0.034)
--- NOTE | 2018-04-22 11:51 | XR ---
EXAMINATION TYPE: XR chest 2V DATE OF EXAM: 04/22/2018 COMPARISON: 04/19/2018 TECHNIQUE: PA and lateral views submitted. HISTORY: Difficulty breathing FINDINGS: The lungs are clear and there is no pneumothorax, pleural effusion, or focal pneumonia. Arthropathy of the shoulders. Elevated right hemidiaphragm. Subsegmental consolidation at both lung bases. IMPRESSION: 1. Stable elevated right hemidiaphragm with bilateral atelectasis or infiltrate..
[2018-04-22] MEDS ORDERED: VANCOMYCIN IV PER PHARMACY 1 EACH MISC MISCELLANE PRN (12:41)
[2018-04-22] MEDS ORDERED: LEVOFLOXACIN 500MG-D5W PMX 500 MG in DEXTROSE/WATER 1 100ML.BAG IVPB STA (12:41)
[2018-04-22] MEDS ORDERED: DEXAMETHASONE SOD PHOSPHATE 10 MG/ML 1 ML VIAL IV STA (12:42)
[2018-04-22] MEDS ORDERED: VANCOMYCIN 1,250 MG in SODIUM CHLORIDE 0.9% 250 ML IVPB STA (12:43)
[2018-04-22] MEDS: SODIUM CHLORIDE 0.9% 1,000 ML IV SCH (13:14)
[2018-04-22 13:22] LABS: Amorphous Sediment,Urine Rare /hpf; Appearance,Urine Cloudy (Clear); Bilirubin,Urine Negative (Negative); Blood,Urine Trace (Negative); Color,Urine Yellow; Glucose,Urine (UA) Negative (Negative); Ketones,Urine Negative (Negative); Leukocyte Esterase,Urine Negative (Negative); Mucus,Urine Rare /hpf; Nitrite,Urine Negative (Negative); Protein,Urine 1+ (Negative); RBC,Urine 26 /hpf (0-5); Specific Gravity,Urine 1.018 (1.001-1.035); Squamous Epithelial Cell,Urine 1 /hpf (0-4); WBC,Urine 2 /hpf (0-5)
[2018-04-22] MEDS ORDERED: NALOXONE 0.4 MG/ML 1 ML VIAL IV PRN (13:46)
--- NOTE | 2018-04-22 14:24 | P.HPIM ---
History of Present Illness This is a pleasant 73 years old male with past medical history: Multiple myeloma , COPD, CVA/TIA, GERD, rheumatoid arthritis, dysphagia with aspiration precautions with vocal cord paralysis status post PEG tube , rheumatoid arthritis Phillips's esophagus. Ex-smoker He is a patient of Harish Nobles. Patient was recently discharged from the hospital for aspiration pneumonia. Today he presents because of dizziness when he told his 5 that he needs a chair to sit on. His been going on for a few hours today and when they checked his blood pressure at home it was low at 86/63 and his oxygen saturation was 74%. On 2 L oxygen via nasal cannula at home for his COPD. He is not steroid dependent, patient also gives a history of loose bowel movements for about one week since he hasn't hospital. The last 24 hours he had 4-5 bowel movements which are very soft/loose. No blood there light brown in color. Patient has some breathing problems this morning also his known case of COPD. Denies chest pain. Patient states that he had some reflux and possibly aspirated last week when he was in the hospital.. Patient also complaining of from cough with white phlegm for about one week and a half. At baseline patients can ambulate using a cane In the emergency room, his vitals were stable he was not febrile with temperature 90.7 oxygen saturating 99% on 4 L oxygen via NC. On admission his blood pressure was 87/54, currently 1:30/79 No leukocytosis. Rest of the CBC was unremarkable. Sodium mildly low at 131, potassium 4.7, creatinine 0.54. Unremarkable. UA was positive for 26 RBCs in the urine. Chest x-ray shows stable elevated right hemidiaphragm with bilateral atelectasis or infiltrate in ED patient received 10 mg of IV Decadron, breathing treatment rate was started on Levaquin and vancomycin plus IV fluids Review of Systems CONSTITUTIONAL: No fever, no malaise, no fatigue. HEENT: No recent visual problems or hearing problems. Denied any sore throat. CARDIOVASCULAR: No orthopnea, PND, no palpitations, no syncope. PULMONARY: No shortness of breath, no cough, no hemoptysis. GASTROINTESTINAL: No diarrhea, no nausea, no vomiting, no abdominal pain. Normoactive bowel sounds. NEUROLOGICAL: No headaches, no weakness, no numbness. HEMATOLOGICAL: Denies any bleeding or petechiae. GENITOURINARY: Denies any burning micturition, frequency, or urgency. MUSCULOSKELETAL/RHEUMATOLOGICAL: Denies any joint pain, swelling, or any muscle pain. ENDOCRINE: Denies any polyuria or polydipsia. 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 Gaping esophagus, barretts esophagus. EGD,. 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 Nasal reduction, PEG tube placement , local cord surgery, Additional Past Anesthesia/Blood Transfusion Reaction / Comment(s): PARALYZED VOCAL CHORDS Past Psychological History: Anxiety Smoking Status: Former smoker Past Alcohol Use History: Occasional Past Drug Use History: None Reported - Past Family History Sister(s) Additional Family Medical History / Comment(s): passed colon CA Brother(s) Additional Family Medical History / Comment(s): sarcidosis Mother Additional Family Medical History / Comment(s): lung CA Son(s) Family Medical History: Hypertension Additional Family Medical History / Comment(s): lymphoma, sarcoidosis Medications and Allergies Home Medications Medication Instructions Recorded Confirmed Type Omeprazole 20 mg PEG/G-TUBE BID 07/31/14 04/22/18 History Ipratropium/Albuterol Sulfate 1 puff INHALATION RT-QID 05/01/17 04/22/18 History [Combivent Respimat Inhaler] Loratadine-Pseudoeph 10-240 mg 1 tab PEG/G-TUBE DAILY 05/01/17 04/22/18 History [Claritin-D 24 Hour] Multivit-Min/FA/Lycopen/Lutein 1 tab PEG/G-TUBE DAILY 08/09/17 04/22/18 History [Centrum Silver Men Tablet] Albuterol Sulfate [Proventil Hfa] 2 puff INHALATION RT-QID PRN 01/28/18 History Aspirin EC [Ecotrin Low Dose] 81 mg PEG/G-TUBE DAILY 01/28/18 04/22/18 History Metoprolol Tartrate [Lopressor] 12.5 mg PEG/G-TUBE DAILY 01/28/18 04/22/18 History Melatonin 5 mg PEG/G-TUBE HS 04/13/18 04/22/18 History Prazosin [Minipress] 1 mg PEG/G-TUBE DAILY 04/13/18 04/22/18 History Zolpidem [Ambien] 10 mg PEG/G-TUBE HS PRN 04/13/18 04/22/18 History Tamsulosin HCl [Flomax] 1 tablet PEG/G-TUBE DAILY 04/19/18 04/22/18 History Acetylcysteine [Mucomyst] 4 ml PO DAILY PRN 04/22/18 04/22/18 History Allergies Allergy/AdvReac Type Severity Reaction Status Date / Time Penicillins Allergy Itching Verified 04/22/18 11:11 piperacillin [From Zosyn] Allergy Itching Verified 04/22/18 11:11 Sulfa (Sulfonamide Allergy Rash/Hives Verified 04/22/18 11:11 Antibiotics) tazobactam [From Zosyn] Allergy Itching Verified 04/22/18 11:11 Physical Exam Vitals: Vital Signs Temp Pulse Resp BP Pulse Ox 04/22/18 13:20 66 18 130/79 99 04/22/18 11:50 67 18 122/77 98 04/22/18 11:15 69 04/22/18 11:07 20 04/22/18 11:05 67 04/22/18 10:39 97.0 F L 69 18 87/54 99 Intake and Output 04/21/18 04/22/18 04/22/18 22:59 06:59 14:59 Other: Weight 67.132 kg -GENERAL: The patient is alert and oriented x3, not in any acute distress. He looks thin and emaciated. Patient with slurred speech, which is his baseline from vocal cord paralysis probably HEENT: Pupils are round and equally reacting to light. EOMI. No scleral icterus. No conjunctival pallor. Normocephalic, atraumatic. No pharyngeal erythema. No thyromegaly. CARDIOVASCULAR: S1 and S2 present. No murmurs, rubs, or gallops. -PULMONARY: Chest is clear to auscultation, no wheezing, bilateral basal crepitation and harsh breath sounds -ABDOMEN: Soft, nontender, nondistended, normoactive bowel sounds. No palpable organomegaly. PEG tube is in a Place with no surrounding inflammation or cellulitis MUSCULOSKELETAL: No joint swelling or deformity. EXTREMITIES: No cyanosis, clubbing, or pedal edema. NEUROLOGICAL: Gross neurological examination did not reveal any focal deficits. SKIN: No rashes. Results CBC & Chem 7: 04/22/18 10:55 04/22/18 10:55 Labs: Abnormal Lab Results - Last 24 Hours (Table) 04/22/18 04/22/18 04/22/18 Range/Units 10:55 10:55 13:00 RBC 3.71 L (4.30-5.90) m/uL Hct 38.3 L (39.0-53.0) % MCV 103.1 H (80.0-100.0) fL Lymphocytes # 0.4 L (1.0-4.8) k/uL Sodium 131 L (137-145) mmol/L Chloride 92 L (98-107) mmol/L Carbon Dioxide 34 H (22-30) mmol/L Creatinine 0.54 L (0.66-1.25) mg/dL Glucose 104 H (74-99) mg/dL Albumin 3.1 L (3.5-5.0) g/dL Urine Protein 1+ H (Negative) Urine Blood Trace H (Negative) Urine RBC 26 H (0-5) /hpf Amorphous Sediment Rare H (None) /hpf Urine Mucus Rare H (None) /hpf Assessment and Plan Assessment: Possible bilateral pneumonia, rule out aspiration pneumonia Loose bowel movement for about a week, rule out C. diff Hypotension, resolved History of multiple myeloma History of vocal cord paralysis with aspiration precautions History of Phillips's esophagus. COPD, not in acute exacerbation History of CVA/TIA Plan: This is a pleasant 73 years old male who presents with possible bilateral lower lobe pneumonia. Continue with antibiotics, continue same treatment. Continue symptomatic treatment. Resume home medication. cAll infectious disease consult. We'll ask oncology team with Dr. Arrington to evaluate the patient. Follow- up culture results. Monitor lytes and vitals. DVT and GI prophylaxis. Further recommendations based on the clinical course of the patient. DVT prophylaxis: Subcutaneous heparin GI prophylaxis: Pepcid PT/OT: Pending Prognosis is
[2018-04-22] MEDS ORDERED: ACETYLCYSTEINE 800 MG/4 ML VIAL PO PRN (18:11)
[2018-04-22] MEDS: IPRATROPIUM-ALBUTEROL 3 ML NEB INHALATION SCH (19:53)
[2018-04-22] MEDS: TAMSULOSIN 0.4 MG CAP.ER.24H PO SCH (20:06)
[2018-04-22] MEDS: PANTOPRAZOLE SODIUM 40 MG GRANULE PKT PEG/G-TUBE SCH (20:06)
[2018-04-22] MEDS: MELATONIN 5 MG TABLET PEG/G-TUBE SCH (20:07)
[2018-04-22] MEDS: HEPARIN SODIUM,PORCINE 5,000 UNIT/ML 1 ML VIAL SQ SCH (20:07)
[2018-04-23] MEDS ORDERED: VANCOMYCIN 1,500 MG in SODIUM CHLORIDE 0.9% 250 ML IVPB SCH (06:00)
[2018-04-23 07:22] LABS: Anion Gap 2 mmol/L; Blood Urea Nitrogen 14 mg/dL (9-20); Calcium 8.5 mg/dL (8.4-10.2); Carbon Dioxide 35 mmol/L (22-30); Chloride 93 mmol/L (98-107); Glucose 89 mg/dL (74-99); Potassium 4.8 mmol/L (3.5-5.1); Sodium 130 mmol/L (137-145)
[2018-04-23 07:23] LABS: Basophils % (A) 0 %; Eosinophils % (A) 0 %; HCT 37.1 % (39.0-53.0); HGB 11.9 gm/dL (13.0-17.5); Lymphocytes # (A) 0.8 k/uL (1.0-4.8); Lymphocytes % (A) 14 %; MCH 33.9 pg (25.0-35.0); MCHC 32.2 g/dL (31.0-37.0); MCV 105.4 fL (80.0-100.0); Macrocytosis Slight; Mean Platelet Volume 7.2; Monocytes # (A) 0.3 k/uL (0-1.0); Monocytes % (A) 5 %; Neutrophils # (A) 4.4 k/uL (1.3-7.7); Neutrophils % (A) 78 %; Platelet Count 221 k/uL (150-450); RBC 3.52 m/uL (4.30-5.90); RDW 13.1 % (11.5-15.5); WBC 5.6 k/uL (3.8-10.6)
[2018-04-23] MEDS: PRAZOSIN 1 MG CAP PEG/G-TUBE SCH (08:40)
[2018-04-23] MEDS: METOPROLOL TARTRATE 12.5 MG TAB PEG/G-TUBE SCH (08:41)
[2018-04-23] MEDS: PANTOPRAZOLE SODIUM 40 MG GRANULE PKT PEG/G-TUBE SCH (08:41)
[2018-04-23] MEDS: MULTIVITAMINS, THERA 1 EACH TAB PEG/G-TUBE SCH (08:41)
[2018-04-23] MEDS: HEPARIN SODIUM,PORCINE 5,000 UNIT/ML 1 ML VIAL SQ SCH ×2 (08:42→21:12)
[2018-04-23] MEDS: LORATADINE-PSEUDOEPH 5-120 MG 1 EACH TAB.ER.12H PO SCH ×2 (08:42→21:03)
[2018-04-23] MEDS: ASPIRIN 81 MG PEG/G-TUBE SCH (08:42)
[2018-04-23] MEDS: SODIUM CHLORIDE 0.9% 1,000 ML IV SCH ×2 (08:43→16:26)
[2018-04-23] MEDS: IPRATROPIUM-ALBUTEROL 3 ML NEB INHALATION SCH ×4 (08:54→19:46)
--- NOTE | 2018-04-23 12:08 | P.CNPUL ---
History of Present Illness Consult date: 04/23/18 Reason for consult: dyspnea, cough, pneumonia, abnormal CXR/CT Chief complaint: Cough and shortness of breath History of present illness: Pulmonary consultation dated 04/23/2018 This is a 73-year-old male with a history of multiple myeloma and COPD who presents with complaints of cough and shortness of breath. The patient was recently inpatient with an episode of aspiration pneumonia. The patient apparently underwent bronchoscopy by my partner and sampling was negative. The patient's chest x-ray on this admission shows a chronic elevation of the right hemidiaphragm and some minimal atelectasis at the lung bases. Nothing really looks significant in the way of pneumonia. Anyway, the patient presented to the emergency department with saturations in the 70s and blood pressures in the 70s. Currently doing much better. Normally he is on 2 L of oxygen 24 7. He is apparently being worked up at [facility] for neuromuscular weakness and possible amyloidosis. He apparently does have a history of multiple myeloma. Today, the patient is feeling better. His was in the room with him. He typically does not lay flat but rather sleeps in a lazy boy with a head of his bed elevated. In addition to multiple myeloma, he has a history of COPD, CVA, GERD, rheumatoid arthritis, this patient with previous episodes of aspiration pneumonia, left vocal cord paralysis, partial vocal cord paralysis on the right and a history of Phillips's esophagus. The patient is a former smoker. Review of Systems A 14 point review of system is positive for shortness of breath chest congestion cough and occasional phlegm production. He apparently was recently admitted with a diagnosis of aspiration pneumonia and underwent bronchoscopy by my partner. Sampling at that time was negative. 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 Gaping esophagus, barretts esophagus. EGD, pt stated had flu and pne vaccines but not sure of dates,senior writer unable to verify dates at time of admit d/t office closed. 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 Nasal reduction, PEG tube placement , local cord surgery, Additional Past Anesthesia/Blood Transfusion Reaction / Comment(s): PARALYZED VOCAL CHORDS Past Psychological History: Anxiety Smoking Status: Former smoker Past Alcohol Use History: Occasional Additional Past Alcohol Use History / Comment(s): Patient started smoking 1961 and quit in 1971-smoked 1 ppd. He lives at home with his . 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 home , [employer]. He uses a cane for ambulation. 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 Past Drug Use History: None Reported - Past Family History Sister(s) Additional Family Medical History / Comment(s): passed colon CA Brother(s) Additional Family Medical History / Comment(s): sarcidosis Mother Additional Family Medical History / Comment(s): lung CA Son(s) Family Medical History: Hypertension Additional Family Medical History / Comment(s): lymphoma, sarcoidosis Medications and Allergies Home Medications Medication Instructions Recorded Confirmed Type Omeprazole 20 mg PEG/G-TUBE BID 07/31/14 04/22/18 History Ipratropium/Albuterol Sulfate 1 puff INHALATION RT-QID 05/01/17 04/22/18 History [Combivent Respimat Inhaler] Loratadine-Pseudoeph 10-240 mg 1 tab PEG/G-TUBE DAILY 05/01/17 04/22/18 History [Claritin-D 24 Hour] Multivit-Min/FA/Lycopen/Lutein 1 tab PEG/G-TUBE DAILY 08/09/17 04/22/18 History [Centrum Silver Men Tablet] Albuterol Sulfate [Proventil Hfa] 2 puff INHALATION RT-QID PRN 01/28/18 History Aspirin EC [Ecotrin Low Dose] 81 mg PEG/G-TUBE DAILY 01/28/18 04/22/18 History Metoprolol Tartrate [Lopressor] 12.5 mg PEG/G-TUBE DAILY 01/28/18 04/22/18 History Melatonin 5 mg PEG/G-TUBE HS 04/13/18 04/22/18 History Prazosin [Minipress] 1 mg PEG/G-TUBE DAILY 04/13/18 04/22/18 History Zolpidem [Ambien] 10 mg PEG/G-TUBE HS PRN 04/13/18 04/22/18 History Tamsulosin HCl [Flomax] 1 tablet PEG/G-TUBE DAILY 04/19/18 04/22/18 History Acetylcysteine [Mucomyst] 4 ml PO DAILY PRN 04/22/18 04/22/18 History Allergies Allergy/AdvReac Type Severity Reaction Status Date / Time Penicillins Allergy Itching Verified 04/22/18 11:11 piperacillin [From Zosyn] Allergy Itching Verified 04/22/18 11:11 Sulfa (Sulfonamide Allergy Rash/Hives Verified 04/22/18 11:11 Antibiotics) tazobactam [From Zosyn] Allergy Itching Verified 04/22/18 11:11 Physical Exam Osteopathic Statement: *. No significant issues noted on an osteopathic structural exam other than those noted in the History and Physical/Consult. Vitals: Vital Signs Temp Pulse Pulse Resp BP BP Pulse Ox 04/23/18 09:10 100 04/23/18 08:55 86 04/23/18 05:00 97.5 F L 81 16 159/94 98 04/22/18 21:00 98.6 F 97 16 151/89 93 L 04/22/18 20:12 94 04/22/18 19:54 96 20 95 04/22/18 16:27 97.8 F 82 18 160/87 96 04/22/18 15:10 97.7 F 74 18 141/78 97 04/22/18 13:20 66 18 130/79 99 Intake and Output 04/22/18 04/23/18 04/23/18 22:59 06:59 14:59 Intake Total 590 590 Balance 590 590 Intake: Oral 590 590 Other: Voiding Method Toilet Toilet # Voids 2 No acute distress, oriented 3. Nasal O2 in place. HEENT examination is grossly unremarkable. Mucous membranes are moist. No oral lesions. Neck supple. Full range of motion. No adenopathy thyromegaly or neck vein distention. Cardiovascular examination reveals regular rhythm rate. S1-S2 normal. No S3 or S4. No discernible murmur noted. Lungs reveal occasional coarse rhonchi. A few scattered crackles are appreciated. Breath sounds equal bilaterally. No wheezes. Abdomen soft bowel sounds are heard. No masses or tenderness. Extremities are intact. No cyanosis clubbing or edema. Skin is without rash or lesion. Neurologic examination is brief but nonfocal. Results - Laboratory Findings CBC and BMP: 04/23/18 06:44 04/23/18 06:44 PT/INR, D-dimer PT 9.7 sec (9.0-12.0) 04/22/18 10:55 INR 1.0 (<1.2) 04/22/18 10:55 Abnormal lab findings: Abnormal Labs 04/22/18 04/22/18 04/22/18 10:55 10:55 13:00 RBC 3.71 L Hgb Hct 38.3 L MCV 103.1 H Lymphocytes # 0.4 L Sodium 131 L Chloride 92 L Carbon Dioxide 34 H Creatinine 0.54 L Glucose 104 H Albumin 3.1 L Urine Protein 1+ H Urine Blood Trace H Urine RBC 26 H Amorphous Sediment Rare H Urine Mucus Rare H 04/23/18 04/23/18 06:44 06:44 RBC 3.52 L Hgb 11.9 L Hct 37.1 L MCV 105.4 H Lymphocytes # 0.8 L Sodium 130 L Chloride 93 L Carbon Dioxide 35 H Creatinine 0.40 L Glucose Albumin Urine Protein Urine Blood Urine RBC Amorphous Sediment Urine Mucus - Diagnostic Findings Chest x-ray: report reviewed, image reviewed (Chest x-ray, labs, and medications are reviewed.) Assessment and Plan Assessment: Assessment Cough and shortness of breath, likely reflecting a episode of tracheobronchitis rather than perry pneumonia. Chronically elevated right hemidiaphragm Bibasilar atelectasis Recent episode of aspiration pneumonia requiring bronchoscopy and BAL, samples alternating out negative History of multiple myeloma Vocal cord paralysis History of COPD History of CVA History of GERD History of rheumatoid arthritis History of chronic dysphagia History of Phillips's esophagus Currently being evaluated by [facility] for a neurodegenerative disease Plan: Plan dated 04/23/2018 White count 5.6 hemoglobin 11.9 hematocrit 37.1 and normal platelet count. Sodium 138 potassium 4.8 chloride 73 CO2 35. Anion gap normal. BUN and creatinine were 14 and 0.40, respectively. C. diff studies were negative. X- ray labs and medications are reviewed. Chest x-ray reveals only bibasilar linear atelectasis and a chronically elevated right diaphragm. No perry pneumonia seen in my opinion. I doubt the need for anything other than oral antibiotics. I will also add a Medrol Dosepak for some bronchospasm and bronchial inflammation. Time with Patient: Greater than 30
--- NOTE | 2018-04-23 13:47 | P.CONS ---
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 Vision has history of rheumatoid arthritis not currently on DMARD. He is status post PEG tube placement due to history of aspiration and weight loss. He states he has had a weight gain of 32 pounds over the past year secondary to the PEG tube. He is taking medications orally but most are being crushed and go through his PEG tube. He had a recent hospitalization April 13 through April 16 at which time he was treated for aspiration pneumonia, COPD exacerbation, acute hypoxic respiratory failure. He was discharged on clindamycin for 5 day course which she completed and he was also set up for oxygen. He came into the [facility] ER on April 19 due to shortness of breath and he noted trouble swallowing his pills that day. He was stabilized and then discharged home. Yesterday he was experiencing dizziness and felt like he was going to pass out and his blood pressure was 86/63 and pulse ox was 74% on oxygen. His called 911 and ambulance brought him into [facility] emergency center for evaluation. His chest x-ray showed stable elevated right hemidiaphragm with bilateral atelectasis or infiltrate. His white count was at 5.6, he was afebrile, creatinine 0.54. Albumin 3.1. He was checked for C. diff which was negative. He states he was having loose stools for about a week 4-5 stools per day but this morning he had a soft formed bowel movement. Blood cultures status received and sputum culture has been sent. Patient has been seen by Dr. Mendez with no perry pneumonia seen in his opinion. And no need for any other antibiotics but oral. Medrol dose pack was ordered Dr. Ricci. Patient did receive Decadron in the ER.. Patient did receive Decadron, Levaquin and vancomycin in the emergency center and admitted to the [facility] floor and continued on vancomycin. Patient has a follow-up appointment with [facility] for a muscle and nerve biopsies and is known to have an abdominal aneurysm that is being monitored. Review of Systems All systems: negative Constitutional: Reports weakness, Reports weight gain, Denies chills, Denies fever Eyes: denies blurred vision, denies pain Ears, nose, mouth and throat: Reports vertigo, Denies dental pain, Denies headache, Denies mouth pain, Denies sore throat Cardiovascular: Reports dyspnea on exertion, Reports lightheadedness, Denies chest pain, Denies edema, Denies leg edema, Denies shortness of breath, Denies syncope Respiratory: Reports cough with sputum, Reports dyspnea, Reports home oxygen, Denies cough, Denies excessive sputum, Denies hemoptysis, Denies wheezing Gastrointestinal: Denies abdominal pain, Denies diarrhea, Denies melena, Denies nausea, Denies vomiting Genitourinary: Denies dysuria, Denies urinary frequency Musculoskeletal: Denies myalgias Integumentary: Denies color changes, Denies pruritus, Denies rash, Denies wounds Neurological: Denies numbness, Denies weakness Psychiatric: Denies anxiety, Denies depression Endocrine: Denies fatigue, Denies weight change Past Medical History Past Medical History: Blood Disorder, COPD, CVA/TIA, GERD/Reflux, Rheumatoid Arthritis (RA) Additional Past Medical History / Comment(s): DYSPHAGIA, ASPIRATION PRECAUTIONS , 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 Gaping esophagus, barretts esophagus. 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 Nasal reduction, PEG tube placement , local cord surgery, Additional Past Anesthesia/Blood Transfusion Reaction / Comm: PARALYZED VOCAL CHORDS Past Psychological History: Anxiety Smoking Status: Former smoker Past Alcohol Use History: Occasional Additional Past Alcohol Use History / Comment(s): Patient started smoking 1961 and quit in 1971-smoked 1 ppd. He lives at home with his . 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 There are no animals in the home. He enjoys deer hunting. He has traveled throughout the [place] with his and cruises to [place] in the [facility]. home 02, neb. He uses a cane for ambulation. Past Drug Use History: None Reported - Past Family History Sister(s) Additional Family Medical History / Comment(s): passed colon CA Brother(s) Additional Family Medical History / Comment(s): sarcidosis Mother Additional Family Medical History / Comment(s): lung CA Son(s) Family Medical History: Hypertension Additional Family Medical History / Comment(s): lymphoma, sarcoidosis Medications and Allergies Home Medications Medication Instructions Recorded Confirmed Type Omeprazole 20 mg PEG/G-TUBE BID 07/31/14 04/22/18 History Ipratropium/Albuterol Sulfate 1 puff INHALATION RT-QID 05/01/17 04/22/18 History [Combivent Respimat Inhaler] Loratadine-Pseudoeph 10-240 mg 1 tab PEG/G-TUBE DAILY 05/01/17 04/22/18 History [Claritin-D 24 Hour] Multivit-Min/FA/Lycopen/Lutein 1 tab PEG/G-TUBE DAILY 08/09/17 04/22/18 History [Centrum Silver Men Tablet] Albuterol Sulfate [Proventil Hfa] 2 puff INHALATION RT-QID PRN 01/28/18 History Aspirin EC [Ecotrin Low Dose] 81 mg PEG/G-TUBE DAILY 01/28/18 04/22/18 History Metoprolol Tartrate [Lopressor] 12.5 mg PEG/G-TUBE DAILY 01/28/18 04/22/18 History Melatonin 5 mg PEG/G-TUBE HS 04/13/18 04/22/18 History Prazosin [Minipress] 1 mg PEG/G-TUBE DAILY 04/13/18 04/22/18 History Zolpidem [Ambien] 10 mg PEG/G-TUBE HS PRN 04/13/18 04/22/18 History Tamsulosin HCl [Flomax] 1 tablet PEG/G-TUBE DAILY 04/19/18 04/22/18 History Acetylcysteine [Mucomyst] 4 ml PO DAILY PRN 04/22/18 04/22/18 History guaiFENesin [Mucinex] 600 mg PO BID 04/23/18 04/23/18 History Cefdinir Oral Susp [Omnicef Oral 15 ml PO Q12H #90 ml 04/26/18 Rx Susp] Furosemide [Lasix] 20 mg PO DAILY #30 tab 04/29/18 Rx Allergies Allergy/AdvReac Type Severity Reaction Status Date / Time Penicillins Allergy Itching Verified 04/22/18 11:11 piperacillin [From Zosyn] Allergy Itching Verified 04/22/18 11:11 Sulfa (Sulfonamide Allergy Rash/Hives Verified 04/22/18 11:11 Antibiotics) tazobactam [From Zosyn] Allergy Itching Verified 04/22/18 11:11 Physical Exam Vitals: Vital Signs Temp Pulse Pulse Resp BP BP Pulse Ox 04/23/18 09:10 100 04/23/18 08:55 86 04/23/18 05:00 97.5 F L 81 16 159/94 98 04/22/18 21:00 98.6 F 97 16 151/89 93 L 04/22/18 20:12 94 04/22/18 19:54 96 20 95 04/22/18 16:27 97.8 F 82 18 160/87 96 04/22/18 15:10 97.7 F 74 18 141/78 97 04/22/18 13:20 66 18 130/79 99 04/22/18 11:50 67 18 122/77 98 04/22/18 11:15 69 04/22/18 11:07 20 04/22/18 11:05 67 04/22/18 10:39 97.0 F L 69 18 87/54 99 Intake and Output 04/22/18 04/23/18 04/23/18 22:59 06:59 14:59 Intake Total 590 590 Balance 590 590 Intake: Oral 590 590 Other: Voiding Method Toilet Toilet # Voids 2 Gen: This is a 73-year-old male patient. He is sitting up in bed and appears to be comfortable. HEENT: Head is atraumatic, normocephalic. Pupils equal, round. Sclerae is anicteric. Conjunctiva slightly pale. Mucous members of the mouth are moist. No oral lesions or thrush noted. NECK: Supple. No JVD. No lymphadenopathy. No thyromegaly. LUNGS: Coarse breath sounds. No wheezing. No accessory muscle usage. No intercostal retractions. HEART: Regular rate and rhythm. No murmur. ABDOMEN: Soft. Bowel sounds are present. No masses. No tenderness. PEG tube in place with no erythema or significant drainage at the site. EXTREMITIES: No pedal edema. No calf tenderness. Dorsalis pedis palpable bilaterally. NEUROLOGICAL: Patient is awake, alert and oriented x3. No focal neural deficits. Results Results: Laboratory Results WBC 5.6 k/uL (3.8-10.6) 04/23/18 06:44 RBC 3.52 m/uL (4.30-5.90) L 04/23/18 06:44 Hgb 11.9 gm/dL (13.0-17.5) L 04/23/18 06:44 Hct 37.1 % (39.0-53.0) L 04/23/18 06:44 MCV 105.4 fL (80.0-100.0) H 04/23/18 06:44 MCH 33.9 pg (25.0-35.0) 04/23/18 06:44 MCHC 32.2 g/dL (31.0-37.0) 04/23/18 06:44 RDW 13.1 % (11.5-15.5) 04/23/18 06:44 Plt Count 221 k/uL (150-450) 04/23/18 06:44 Neutrophils % 78 % 04/23/18 06:44 Lymphocytes % 14 % 04/23/18 06:44 Monocytes % 5 % 04/23/18 06:44 Eosinophils % 0 % 04/23/18 06:44 Basophils % 0 % 04/23/18 06:44 Neutrophils # 4.4 k/uL (1.3-7.7) 04/23/18 06:44 Lymphocytes # 0.8 k/uL (1.0-4.8) L 04/23/18 06:44 Monocytes # 0.3 k/uL (0-1.0) 04/23/18 06:44 Eosinophils # 0.0 k/uL (0-0.7) 04/23/18 06:44 Basophils # 0.0 k/uL (0-0.2) 04/23/18 06:44 Macrocytosis Slight 04/23/18 06:44 PT 9.7 sec (9.0-12.0) 04/22/18 10:55 INR 1.0 (<1.2) 04/22/18 10:55 APTT 23.7 sec (22.0-30.0) 04/22/18 10:55 Sodium 130 mmol/L (137-145) L 04/23/18 06:44 Potassium 4.8 mmol/L (3.5-5.1) 04/23/18 06:44 Chloride 93 mmol/L (98-107) L 04/23/18 06:44 Carbon Dioxide 35 mmol/L (22-30) H 04/23/18 06:44 Anion Gap 2 mmol/L 04/23/18 06:44 BUN 14 mg/dL (9-20) 04/23/18 06:44 Creatinine 0.40 mg/dL (0.66-1.25) L 04/23/18 06:44 Est GFR (CKD-EPI)AfAm >90 (>60 ml/min/1.73 sqM) 04/23/18 06:44 Est GFR (CKD-EPI)NonAf >90 (>60 ml/min/1.73 sqM) 04/23/18 06:44 Glucose 89 mg/dL (74-99) 04/23/18 06:44 Calcium 8.5 mg/dL (8.4-10.2) 04/23/18 06:44 Magnesium 1.9 mg/dL (1.6-2.3) 04/22/18 10:55 Total Bilirubin 0.6 mg/dL (0.2-1.3) 04/22/18 10:55 AST 28 U/L (17-59) 04/22/18 10:55 ALT 33 U/L (21-72) 04/22/18 10:55 Alkaline Phosphatase 92 U/L (38-126) 04/22/18 10:55 Total Creatine Kinase 60 U/L (55-170) 04/22/18 10:55 CK-MB (CK-2) 2.1 ng/mL (0.0-2.4) 04/22/18 10:55 CK-MB (CK-2) Rel Index 3.5 04/22/18 10:55 Troponin I <0.012 ng/mL (0.000-0.034) 04/22/18 10:55 NT-Pro-B Natriuret Pep 110 pg/mL 04/22/18 10:55 Total Protein 6.3 g/dL (6.3-8.2) 04/22/18 10:55 Albumin 3.1 g/dL (3.5-5.0) L 04/22/18 10:55 Urine Color Yellow 04/22/18 13:00 Urine Appearance Cloudy (Clear) 04/22/18 13:00 Urine pH 8.0 (5.0-8.0) 04/22/18 13:00 Ur Specific [place] 1.018 (1.001-1.035) 04/22/18 13:00 Urine Protein 1+ (Negative) H 04/22/18 13:00 Urine Glucose (UA) Negative (Negative) 04/22/18 13:00 Urine Ketones Negative (Negative) 04/22/18 13:00 Urine Blood Trace (Negative) H 04/22/18 13:00 Urine Nitrite Negative (Negative) 04/22/18 13:00 Urine Bilirubin Negative (Negative) 04/22/18 13:00 Urine Urobilinogen 8.0 mg/dL (<2.0) 04/22/18 13:00 Ur Leukocyte Esterase Negative (Negative) 04/22/18 13:00 Urine RBC 26 /hpf (0-5) H 04/22/18 13:00 Urine WBC 2 /hpf (0-5) 04/22/18 13:00 Ur Squamous Epith Cells 1 /hpf (0-4) 04/22/18 13:00 Amorphous Sediment Rare /hpf (None) H 04/22/18 13:00 Urine Mucus Rare /hpf (None) H 04/22/18 13:00 C. difficile (EIA) Intrp Negative (Negative) 04/23/18 06:00 CBC & Chem 7: 04/28/18 09:55 04/29/18 07:10 Labs: Abnormal Lab Results - Last 24 Hours (Table) 04/22/18 04/22/18 04/22/18 Range/Units 10:55 10:55 13:00 RBC 3.71 L (4.30-5.90) m/uL Hgb (13.0-17.5) gm/dL Hct 38.3 L (39.0-53.0) % MCV 103.1 H (80.0-100.0) fL Lymphocytes # 0.4 L (1.0-4.8) k/uL Sodium 131 L (137-145) mmol/L Chloride 92 L (98-107) mmol/L Carbon Dioxide 34 H (22-30) mmol/L Creatinine 0.54 L (0.66-1.25) mg/dL Glucose 104 H (74-99) mg/dL Albumin 3.1 L (3.5-5.0) g/dL Urine Protein 1+ H (Negative) Urine Blood Trace H (Negative) Urine RBC 26 H (0-5) /hpf Amorphous Sediment Rare H (None) /hpf Urine Mucus Rare H (None) /hpf 04/23/18 04/23/18 Range/Units 06:44 06:44 RBC 3.52 L (4.30-5.90) m/uL Hgb 11.9 L (13.0-17.5) gm/dL Hct 37.1 L (39.0-53.0) % MCV 105.4 H (80.0-100.0) fL Lymphocytes # 0.8 L (1.0-4.8) k/uL Sodium 130 L (137-145) mmol/L Chloride 93 L (98-107) mmol/L Carbon Dioxide 35 H (22-30) mmol/L Creatinine 0.40 L (0.66-1.25) mg/dL Glucose (74-99) mg/dL Albumin (3.5-5.0) g/dL Urine Protein (Negative) Urine Blood (Negative) Urine RBC (0-5) /hpf Amorphous Sediment (None) /hpf Urine Mucus (None) /hpf Assessment and Plan Plan: This is a 73-year-old male patient who presented to the hospital with acute hypoxic respiratory failure and most likely tracheobronchitis on x-ray versus pneumonia and hypotension possibly related to dehydration from diarrhea which has subsequently resolved. Antibiotics will be addressed. Did use supportive care. Further recommendations as patient progresses. The above dictated assessment and findings were discussed with Dr. Sahu. The impression and plan of care have been directed as dictated. Bridget Valdez nurse practitioner acting as scribe for Dr. Sahu.
[2018-04-23 14:06] VITALS: BMI 22.5
[2018-04-23] MEDS: methylPREDNISolone 4 MG TAB TAPER PO SCH (14:59)
[2018-04-23] MEDS: guaiFENesin SYRUP 100MG/5ML 200 MG/10 ML CUP PO SCH ×3 (15:00→21:12)
[2018-04-23] MEDS: BACITRACIN OINT 1 EACH PACKET TOPICAL SCH (15:01)
--- NOTE | 2018-04-23 16:46 | P.CON ---
Consult Note - . 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 Vision has history of rheumatoid arthritis not currently on DMARD. He is status post PEG tube placement due to history of aspiration and weight loss. He states he has had a weight gain of 32 pounds over the past year secondary to the PEG tube. He is taking medications orally but most are being crushed and go through his PEG tube. He had a recent hospitalization April 13 through April 16 at which time he was treated for aspiration pneumonia, COPD exacerbation, acute hypoxic respiratory failure. He was discharged on clindamycin for 5 day course which she completed and he was also set up for oxygen. He came into the [facility] ER on April 19 due to shortness of breath and he noted trouble swallowing his pills that day. He was stabilized and then discharged home. Yesterday he was experiencing dizziness and felt like he was going to pass out and his blood pressure was 86/63 and pulse ox was 74% on oxygen. His called 911 and ambulance brought him into [facility] emergency center for evaluation. His chest x-ray showed stable elevated right hemidiaphragm with bilateral atelectasis or infiltrate. His white count was at 5.6, he was afebrile, creatinine 0.54. Albumin 3.1. He was checked for C. diff which was negative. He states he was having loose stools for about a week 4-5 stools per day but this morning he had a soft formed bowel movement. Blood cultures status received and sputum culture has been sent. Patient has been seen by Dr. Mendez with no perry pneumonia seen in his opinion. And no need for any other antibiotics but oral. Medrol dose pack was ordered Dr. Ricci. Patient did receive Decadron in the ER.. Patient did receive Decadron, Levaquin and vancomycin in the emergency center and [facility] and continued on vancomycin. Patient has a follow-up appointment with [facility] for a muscle and nerve biopsies and is known to have an abdominal aneurysm that is being monitored. Please see the consult note is dictated by nurse practitioner Mrs. Bridget Valdez. Has related this very pleasant 73-year-old gym and has significant neuromuscular disease that is being worked up [facility]. He has been seen by pulmonary critical care at this time does not appear to have pneumonia. He is being treated with steroids for some bronchospasm and was some purulent tracheobronchitis oral antibiotic therapy will be initiated with cefuroxime. The patient does have some difficulties with the thickness of the secretions and relates that Mucomyst at home has helped him at times. We discussed that he likely is not getting enough free water and a daily basis. This will keep him somewhat chronically dehydrated which will keep his secretions thick. I suggested they get a picture that is clear that they can put his name on and fill it daily with water, the patient can then throughout the day make sure he is getting enough fluid through his PEG tube to keep his hydration well. The family can also help him to ensure that after medications due to free water flush. And I am in full agreement to limit the amount of free water to get him right before a meal so that doesn't decrease his ability to take in protein nutrition and reduce the risk of reflux. I agree with evaluation, assessment and plan as dictated by nurse practitioner Mrs. Bridget Valdez.
--- NOTE | 2018-04-23 17:58 | P.PN ---
Subjective Assessment: Possible tracheobronchitis rather than bilateral pneumonia Loose bowel movement for about a week, C. diff: Negative Hypotension, resolved Essential hypertension History of neuromuscular disorder History of vocal cord paralysis with aspiration precautions History of Phillips's esophagus. COPD, not in acute exacerbation History of CVA/TIA Plan: This is a pleasant 73 years old male who presents with Possible tracheobronchitis rather than bilateral pneumonia as per pulmonary evaluation. Pulmonary and infectious disease evaluation is appreciated. Vancomycin has been discontinued went and patient was started on CEFDINIR oral syrup, as well as Medrol Dosepak . Metoprolol was started at 12.5 mg. Continue with antibiotics, continue same treatment. Continue symptomatic treatment. Resume home medication. Follow-up culture results. Monitor lytes and vitals. DVT and GI prophylaxis. Further recommendations based on the clinical course of the patient. DVT prophylaxis: Subcutaneous heparin GI prophylaxis: Pepcid PT/OT: Home with family Prognosis is Objective - Vital Signs Vital signs: Vital Signs Temp 98.2 F 04/23/18 13:10 Pulse 88 04/23/18 16:32 Resp 18 04/23/18 13:10 BP 110/67 04/23/18 13:10 Pulse Ox 97 04/23/18 13:10 Intake & Output 04/22/18 04/23/18 04/23/18 18:59 06:59 18:59 Intake Total 1180 474 Balance 1180 474 Weight 67.132 kg 67.132 kg Intake: Oral 1180 Tube Feeding 474 Other: Voiding Method Toilet Toilet Toilet # Voids 2 3 # Bowel Movements 1 - Exam -GENERAL: The patient is alert and oriented x3, not in any acute distress. He looks thin and emaciated. Patient with slurred speech, which is his baseline from vocal cord paralysis probably HEENT: Pupils are round and equally reacting to light. EOMI. No scleral icterus. No conjunctival pallor. Normocephalic, atraumatic. No pharyngeal erythema. No thyromegaly. CARDIOVASCULAR: S1 and S2 present. No murmurs, rubs, or gallops. -PULMONARY: Chest is clear to auscultation, no wheezing, bilateral basal crepitation and harsh breath sounds -ABDOMEN: Soft, nontender, nondistended, normoactive bowel sounds. No palpable organomegaly. PEG tube is in a Place with no surrounding inflammation or cellulitis MUSCULOSKELETAL: No joint swelling or deformity. EXTREMITIES: No cyanosis, clubbing, or pedal edema. NEUROLOGICAL: Gross neurological examination did not reveal any focal deficits. SKIN: No rashes. - Labs CBC & Chem 7: 04/23/18 06:44 04/23/18 06:44 Labs: Abnormal Lab Results - Last 24 Hours (Table) 04/23/18 04/23/18 Range/Units 06:44 06:44 RBC 3.52 L (4.30-5.90) m/uL Hgb 11.9 L (13.0-17.5) gm/dL Hct 37.1 L (39.0-53.0) % MCV 105.4 H (80.0-100.0) fL Lymphocytes # 0.8 L (1.0-4.8) k/uL Sodium 130 L (137-145) mmol/L Chloride 93 L (98-107) mmol/L Carbon Dioxide 35 H (22-30) mmol/L Creatinine 0.40 L (0.66-1.25) mg/dL Microbiology - Last 24 Hours (Table) 04/23/18 09:26 Sputum Culture - Preliminary Sputum 04/22/18 10:55 Blood Culture - Preliminary Blood No Growth after 24 hours Assessment and Plan Assessment: Possible bilateral pneumonia, rule out aspiration pneumonia Loose bowel movement for about a week, rule out C. diff Hypotension, resolved History of multiple myeloma History of vocal cord paralysis with aspiration precautions History of Phillips's esophagus. COPD, not in acute exacerbation History of CVA/TIA Plan: This is a pleasant 73 years old male who presents with possible bilateral lower lobe pneumonia. Continue with antibiotics, continue same treatment. Continue symptomatic treatment. Resume home medication. cAll infectious disease consult. We'll ask oncology team with Dr. Arrington to evaluate the patient. Follow- up culture results. Monitor lytes and vitals. DVT and GI prophylaxis. Further recommendations based on the clinical course of the patient. DVT prophylaxis: Subcutaneous heparin GI prophylaxis: Pepcid PT/OT: Pending Prognosis is
[2018-04-23] MEDS: MELATONIN 5 MG TABLET PEG/G-TUBE SCH (21:03)
[2018-04-23] MEDS: TAMSULOSIN 0.4 MG CAP.ER.24H PO SCH (21:03)
[2018-04-23] MEDS: CEFDINIR ORAL SUSP 1,500 MG/60 ML BOTTLE PEG/G-TUBE SCH (21:04)
[2018-04-23 21:42] LABS: Appearance,Urine Clear (Clear); Bilirubin,Urine Negative (Negative); Blood,Urine Negative (Negative); Color,Urine Yellow; Glucose,Urine (UA) Negative (Negative); Ketones,Urine Negative (Negative); Leukocyte Esterase,Urine Negative (Negative); Nitrite,Urine Negative (Negative); Protein,Urine Negative (Negative); Specific Gravity,Urine 1.015 (1.001-1.035)
[2018-04-24] MEDS ORDERED: VANCOMYCIN TROUGH DUE 1 EACH MISC MISCELLANE ONE (05:00)
[2018-04-24 05:41] LABS: Basophils % (A) 0 %; Eosinophils % (A) 0 %; HCT 35.6 % (39.0-53.0); HGB 11.6 gm/dL (13.0-17.5); Lymphocytes % (A) 20 %; MCH 34.3 pg (25.0-35.0); MCHC 32.6 g/dL (31.0-37.0); MCV 105.2 fL (80.0-100.0); Macrocytosis Slight; Mean Platelet Volume 7.1; Monocytes # (A) 0.3 k/uL (0-1.0); Monocytes % (A) 6 %; Neutrophils # (A) 3.4 k/uL (1.3-7.7); Neutrophils % (A) 71 %; Platelet Count 211 k/uL (150-450); RBC 3.39 m/uL (4.30-5.90); RDW 13.4 % (11.5-15.5); WBC 4.8 k/uL (3.8-10.6)
[2018-04-24 05:53] LABS: Anion Gap 3 mmol/L; Blood Urea Nitrogen 14 mg/dL (9-20); Calcium 8.5 mg/dL (8.4-10.2); Carbon Dioxide 34 mmol/L (22-30); Chloride 89 mmol/L (98-107); Glucose 88 mg/dL (74-99); Potassium 4.4 mmol/L (3.5-5.1); Sodium 126 mmol/L (137-145)
[2018-04-24] MEDS: IPRATROPIUM-ALBUTEROL 3 ML NEB INHALATION SCH ×4 (07:14→20:02)
[2018-04-24] MEDS: guaiFENesin SYRUP 100MG/5ML 200 MG/10 ML CUP PO SCH ×4 (09:00→23:07)
[2018-04-24] MEDS: MULTIVITAMINS, THERA 1 EACH TAB PEG/G-TUBE SCH (09:12)
[2018-04-24] MEDS: methylPREDNISolone 4 MG TAB TAPER PO SCH (09:14)
[2018-04-24] MEDS: ASPIRIN 81 MG PEG/G-TUBE SCH (09:14)
[2018-04-24] MEDS: LORATADINE-PSEUDOEPH 5-120 MG 1 EACH TAB.ER.12H PO SCH ×2 (09:14→21:03)
[2018-04-24] MEDS: HEPARIN SODIUM,PORCINE 5,000 UNIT/ML 1 ML VIAL SQ SCH ×2 (09:14→21:03)
[2018-04-24] MEDS: PANTOPRAZOLE SODIUM 40 MG GRANULE PKT PEG/G-TUBE SCH (09:14)
[2018-04-24] MEDS: METOPROLOL TARTRATE 12.5 MG TAB PEG/G-TUBE SCH (09:14)
[2018-04-24] MEDS: PRAZOSIN 1 MG CAP PEG/G-TUBE SCH (09:14)
[2018-04-24] MEDS: CEFDINIR ORAL SUSP 1,500 MG/60 ML BOTTLE PEG/G-TUBE SCH ×2 (09:14→21:03)
[2018-04-24] MEDS: SODIUM CHLORIDE 0.9% 1,000 ML IV SCH (09:16)
[2018-04-24] MEDS: BACITRACIN OINT 1 EACH PACKET TOPICAL SCH (12:16)
--- NOTE | 2018-04-24 13:52 | P.PN ---
Subjective Progress Note Date: 04/24/18 Principal diagnosis: Acute bronchitis and diarrhea Mr. Ferro is a 72-year-old male with a past medical history of partial paralysis of left throat, pallor, vocal cord, and in face, history of Phillips's esophagitis coming to the hospital with a chief complaint of dizziness and feeling like passing out. Patient was having diarrhea for about a week 4-5 loose stools. She has blood pressure at home was very low 86 x 63 and his oxygen saturation was 74% and so 911 was called and patient brought into the hospital. Patient was recently admitted to the hospital from April 13 was April 16 and he was treated for aspiration pneumonia, COPD exacerbation and a acute hypoxic respiratory failure. Patient was discharged on clindamycin that he completed. Patient had C. diff checked that was negative. 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 He states he is supposed to get a nerve and muscle biopsy. Today the patient is sitting up in the bed appears to be no acute distress he does not have any active ongoing complaints. Review of systems Constitutional: Denies having any fevers chills or rigors Cardiovascular: No chest pain or palpitations Respiratory: Patient complains that he has sputum that is very thick in consistency when he coughs it up and that it is difficult for him to cough without. GI: No abdominal pain nausea vomiting , diarrhea - resolved. : denies hematuria or dysuria Objective - Vital Signs Vital signs: Vital Signs Temp 97.5 F L 04/24/18 11:17 Pulse 78 04/24/18 11:17 Resp 20 04/24/18 11:17 BP 141/77 04/24/18 11:17 Pulse Ox 97 04/24/18 11:17 Intake & Output 04/23/18 04/24/18 04/24/18 18:59 06:59 18:59 Intake Total 948 815 960 Balance 948 815 960 Weight 67.132 kg Intake: Intake, IV Titration 225 Amount Sodium Chloride 0.9% 1, 225 000 ml @ 75 mls/hr IV . [id number] [facility] Rx#:[id number] Oral 590 Tube Feeding 948 960 Other: Voiding Method Toilet Toilet Toilet # Voids 3 2 # Bowel Movements 1 - Exam Gen: This is a 73-year-old male patient. No acute distress HEENT: Temporal wasting is noted .Head is atraumatic, normocephalic. Pupils equal, round. Sclerae is anicteric. Conjunctiva slightly pale. Mucous members of the mouth are moist. No oral lesions or thrush noted. NECK: Supple. No JVD. No lymphadenopathy. No thyromegaly. LUNGS: Coarse breath sounds. No wheezing. No accessory muscle usage. No intercostal retractions. HEART: Regular rate and rhythm. No murmur. ABDOMEN: Soft. Bowel sounds are present. No masses. No tenderness. PEG tube in place with no erythema or significant drainage at the site. EXTREMITIES: No pedal edema. No calf tenderness. Dorsalis pedis palpable bilaterally. NEUROLOGICAL: Patient is awake, alert and oriented x3. No focal neural deficits. - Labs CBC & Chem 7: 04/24/18 05:30 04/24/18 05:30 Labs: Abnormal Lab Results - Last 24 Hours (Table) 04/24/18 04/24/18 Range/Units 05:30 05:30 RBC 3.39 L (4.30-5.90) m/uL Hgb 11.6 L (13.0-17.5) gm/dL Hct 35.6 L (39.0-53.0) % MCV 105.2 H (80.0-100.0) fL Sodium 126 L (137-145) mmol/L Chloride 89 L (98-107) mmol/L Carbon Dioxide 34 H (22-30) mmol/L Creatinine 0.34 L (0.66-1.25) mg/dL Microbiology - Last 24 Hours (Table) 04/22/18 10:55 Blood Culture - Preliminary Blood No Growth after 48 hours 04/23/18 09:26 Gram Stain - Preliminary Sputum Sputum Culture - Preliminary Gram Neg Bacilli Assessment and Plan Assessment: ASSESSMENT Cough most likely secondary to tracheobronchitis Acute diarrhea; resolved; C. 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 Multiple myeloma Neuromuscular disorder -he is currently being evaluated for related at [facility] Recent episode of aspiration pneumonia Chronically elevated right hemidiaphragm History of rheumatoid arthritis PEG tube for feeding At risk for aspiration GI DVT prophylaxis Plan: Patient was initially started on IV vancomycin that was discontinued and patient was started on Cefdinir oral syrup by ESAU Sahu. Continue with Medrol Dosepak. Sputum cultures pending. Patient's sodium dropped to 126 and he is getting IV fluids which will be discontinued and now monitor lytes for tomorrow morning. Continue with the rest of his medication regimen. Continue with PEG tube feeds. Elevation of the head end of the bed for a risk of aspiration pneumonia. Overall prognosis is guarded. Hematology consult pending. Further recommendations to follow depending on the progress of the patient.
--- NOTE | 2018-04-24 13:53 | P.PN ---
Subjective Progress Note Date: 04/24/18 Principal diagnosis: Cough shortness of breath and phlegm production Progress note dated 04/24/2018 73-year-old male who we thought we saw him yesterday likely had an episode of tracheobronchitis rather than perry pneumonia. The patient does have a history of chronically elevated right hemidiaphragm by basilar atelectasis recent episode of aspiration pneumonia requiring bronchoscopy/BAL, multiple myeloma, vocal cord paralysis, COPD, CVA, GERD, rheumatoid arthritis, chronic dysphagia, Phillips's esophagus, and possibly a neurodegenerative disease which is being evaluated and worked up at [facility]. Currently, the patient is doing reasonably well. Apparently last night he had loss of phlegm and secretions. Sometimes is difficult for him to get it out. He clinically looks relatively well though. His chest x-ray showed a chronically elevated right hemidiaphragm and some right basilar atelectasis. Labs from today show a white count of 4.8 hemoglobin 11.6 hematocrit 35.6 and a normal platelet count. Sodium 126, potassium 4.4 chloride is 89 CO2 34. BUN and creatinine were normal. Sputum sample showing gram-negative bacilli yet to be identified. Blood cultures were negative. Clinically, the patient looks reasonably well. We did recommend aspiration precautions with head of bed elevated at all times. Objective - Vital Signs Vital signs: Vital Signs Temp 97.5 F L 04/24/18 11:17 Pulse 78 04/24/18 11:17 Resp 20 04/24/18 11:17 BP 141/77 04/24/18 11:17 Pulse Ox 97 04/24/18 11:17 Intake & Output 04/23/18 04/24/18 04/24/18 18:59 06:59 18:59 Intake Total 948 815 960 Balance 948 815 960 Weight 67.132 kg Intake: Intake, IV Titration 225 Amount Sodium Chloride 0.9% 1, 225 000 ml @ 75 mls/hr IV . [id number] [facility] Rx#:[id number] Oral 590 Tube Feeding 948 960 Other: Voiding Method Toilet Toilet Toilet # Voids 3 2 # Bowel Movements 1 - Exam No acute distress, oriented 3. Nasal O2 in place. HEENT examination is grossly unremarkable. Mucous membranes are moist. No oral lesions. Neck supple. Full range of motion. No adenopathy thyromegaly or neck vein distention. Cardiovascular examination reveals regular rhythm rate. S1-S2 normal. No S3 or S4. No discernible murmur noted. Heart sounds are distant. Heart rate is 80 bpm. Lungs reveal diffuse coarse rhonchi bilaterally. A few crackles are appreciated. Breath sounds equal bilaterally. No wheezes. Abdomen soft bowel sounds are heard. No masses or tenderness. Extremities are intact. No cyanosis clubbing or edema. Skin is without rash or lesion. Neurologic examination is brief but nonfocal. - Labs CBC & Chem 7: 04/24/18 05:30 04/24/18 05:30 Labs: Abnormal Lab Results - Last 24 Hours (Table) 04/24/18 04/24/18 Range/Units 05:30 05:30 RBC 3.39 L (4.30-5.90) m/uL Hgb 11.6 L (13.0-17.5) gm/dL Hct 35.6 L (39.0-53.0) % MCV 105.2 H (80.0-100.0) fL Sodium 126 L (137-145) mmol/L Chloride 89 L (98-107) mmol/L Carbon Dioxide 34 H (22-30) mmol/L Creatinine 0.34 L (0.66-1.25) mg/dL Microbiology - Last 24 Hours (Table) 04/22/18 10:55 Blood Culture - Preliminary Blood No Growth after 48 hours 04/23/18 09:26 Gram Stain - Preliminary Sputum Sputum Culture - Preliminary Gram Neg Bacilli Assessment and Plan Assessment: Assessment Cough and shortness of breath, likely reflecting a episode of tracheobronchitis rather than perry pneumonia. Chronically elevated right hemidiaphragm Bibasilar atelectasis Recent episode of aspiration pneumonia requiring bronchoscopy and BAL, samples negative History of multiple myeloma Vocal cord paralysis History of COPD History of CVA History of GERD History of rheumatoid arthritis History of chronic dysphagia History of Phillips's esophagus Currently being evaluated by [facility] for a neurodegenerative disease Plan: Plan dated 04/23/2018 White count 5.6 hemoglobin 11.9 hematocrit 37.1 and normal platelet count. Sodium 138 potassium 4.8 chloride 73 CO2 35. Anion gap normal. BUN and creatinine were 14 and 0.40, respectively. C. diff studies were negative. X- ray labs and medications are reviewed. Chest x-ray reveals only bibasilar linear atelectasis and a chronically elevated right diaphragm. No perry pneumonia seen in my opinion. I doubt the need for anything other than oral antibiotics. I will also add a Medrol Dosepak for some bronchospasm and bronchial inflammation. Plan dated 04/24/2018 Sputum from April 23 shows gram-negative bacilli yet to be identified. Also , from April 24, white count 4.8 implement 11.6 hematocrit 35.6 and platelet count is normal. Sodium 126 potassium 4.4 chloride 89 CO2 34. BUN 14 with a creatinine of 0.34. Medications are reviewed. Given the gram-negative bacilli which is not yet been identified in the sputum from the , antibiotics may need to be changed. We'll allow infectious disease to do that. Additional recommendations and suggestions are forthcoming. The patient should be chronically an aspiration precautions. He such as food slowly. Additional recommendations and suggestions are forthcoming. Time with Patient: Less than 30
[2018-04-24] MEDS: TAMSULOSIN 0.4 MG CAP.ER.24H PO SCH (21:03)
[2018-04-24] MEDS: MELATONIN 5 MG TABLET PEG/G-TUBE SCH (21:03)
[2018-04-25] MEDS: IPRATROPIUM-ALBUTEROL 3 ML NEB INHALATION SCH ×4 (06:55→20:08)
[2018-04-25 07:15] LABS: Basophils % (A) 0 %; Eosinophils % (A) 0 %; HCT 35.9 % (39.0-53.0); HGB 11.8 gm/dL (13.0-17.5); Lymphocytes # (A) 1.3 k/uL (1.0-4.8); Lymphocytes % (A) 23 %; Macrocytosis Slight; Mean Platelet Volume 7.3; Monocytes # (A) 0.3 k/uL (0-1.0); Monocytes % (A) 5 %; Neutrophils # (A) 3.8 k/uL (1.3-7.7); Neutrophils % (A) 68 %; Platelet Count 219 k/uL (150-450); RBC 3.48 m/uL (4.30-5.90); RDW 13.2 % (11.5-15.5); WBC 5.5 k/uL (3.8-10.6)
[2018-04-25 07:26] LABS: Anion Gap 4 mmol/L; Blood Urea Nitrogen 13 mg/dL (9-20); Calcium 8.5 mg/dL (8.4-10.2); Carbon Dioxide 35 mmol/L (22-30); Chloride 85 mmol/L (98-107); Glucose 76 mg/dL (74-99); Potassium 4.5 mmol/L (3.5-5.1); Sodium 124 mmol/L (137-145)
[2018-04-25] MEDS: HEPARIN SODIUM,PORCINE 5,000 UNIT/ML 1 ML VIAL SQ SCH ×2 (09:05→21:09)
[2018-04-25] MEDS: LORATADINE-PSEUDOEPH 5-120 MG 1 EACH TAB.ER.12H PO SCH ×2 (09:05→21:08)
[2018-04-25] MEDS: guaiFENesin SYRUP 100MG/5ML 200 MG/10 ML CUP PO SCH ×4 (09:05→21:12)
[2018-04-25] MEDS: CEFDINIR ORAL SUSP 1,500 MG/60 ML BOTTLE PEG/G-TUBE SCH ×2 (09:05→21:09)
[2018-04-25] MEDS: METOPROLOL TARTRATE 12.5 MG TAB PEG/G-TUBE SCH (09:06)
[2018-04-25] MEDS: MULTIVITAMINS, THERA 1 EACH TAB PEG/G-TUBE SCH (09:06)
[2018-04-25] MEDS: PANTOPRAZOLE SODIUM 40 MG GRANULE PKT PEG/G-TUBE SCH (09:06)
[2018-04-25] MEDS: PRAZOSIN 1 MG CAP PEG/G-TUBE SCH (09:06)
[2018-04-25] MEDS: ASPIRIN 81 MG PEG/G-TUBE SCH (09:06)
[2018-04-25] MEDS: methylPREDNISolone 4 MG TAB TAPER PO SCH (09:06)
--- NOTE | 2018-04-25 12:00 | P.PN ---
Subjective Progress Note Date: 04/25/18 Principal diagnosis: Cough shortness of breath and phlegm production Progress note dated 04/24/2018 73-year-old male who we thought we saw him yesterday likely had an episode of tracheobronchitis rather than perry pneumonia. The patient does have a history of chronically elevated right hemidiaphragm by basilar atelectasis recent episode of aspiration pneumonia requiring bronchoscopy/BAL, multiple myeloma, vocal cord paralysis, COPD, CVA, GERD, rheumatoid arthritis, chronic dysphagia, Phillips's esophagus, and possibly a neurodegenerative disease which is being evaluated and worked up at [facility]. Currently, the patient is doing reasonably well. Apparently last night he had loss of phlegm and secretions. Sometimes is difficult for him to get it out. He clinically looks relatively well though. His chest x-ray showed a chronically elevated right hemidiaphragm and some right basilar atelectasis. Labs from today show a white count of 4.8 hemoglobin 11.6 hematocrit 35.6 and a normal platelet count. Sodium 126, potassium 4.4 chloride is 89 CO2 34. BUN and creatinine were normal. Sputum sample showing gram-negative bacilli yet to be identified. Blood cultures were negative. Clinically, the patient looks reasonably well. We did recommend aspiration precautions with head of bed elevated at all times. Progress note dated 04/25/2018 73-year-old male seen in consultation at couple days ago with an episode of tracheobronchitis. The patient does have a history of chronically elevated right hemidiaphragm, and also has a history of aspiration pneumonia multiple myeloma vocal cord paralysis COPD CVA GERD rheumatoid arthritis chronic dysphagia Phillips's esophagus and a neurodegenerative disease which is currently being evaluated at the [facility]. The patient continues to be improved each day. Less and less in the way of secretions or any other pulmonary complaints for that matter. Slept well last night. We do recommend that of the bed elevated at 45 at all times. The patient's white count is 5.5 hemoglobin 11.8 hematocrit 35.9 and platelet count is normal. Sodium 124 potassium 4.5 chloride 85 CO2 35 BUN 13 and creatinine 0.39. Sputum showing 2 different gram-negative bacilli, they have yet to be identified. Blood cultures were negative. Objective - Vital Signs Vital signs: Vital Signs Temp 98.1 F 04/25/18 05:00 Pulse 92 04/25/18 11:19 Resp 16 04/25/18 09:05 BP 168/93 04/25/18 05:00 Pulse Ox 98 04/25/18 05:00 Intake & Output 04/24/18 04/25/18 04/25/18 18:59 06:59 18:59 Intake Total 1815 670 240 Balance 1815 670 240 Intake: Intake, IV Titration 375 80 Amount Sodium Chloride 0.9% 1, 375 80 000 ml @ 75 mls/hr IV . [id number] [facility] Rx#:[id number] Oral 590 Tube Feeding 1440 240 Other: Voiding Method Toilet Toilet Toilet # Voids 2 1 - Exam No acute distress, oriented 3. Nasal O2 in place. The patient has a fair amount of chest congestion when he coughs. HEENT examination is grossly unremarkable. Mucous membranes are moist. No oral lesions. Neck supple. Full range of motion. No adenopathy thyromegaly or neck vein distention. Cardiovascular examination reveals regular rhythm rate. S1-S2 normal. No S3 or S4. No discernible murmur noted. Heart sounds are distant. Heart rate is 80 bpm. Lungs reveal diffuse coarse rhonchi bilaterally. A few crackles are appreciated. Breath sounds equal bilaterally. No wheezes. Today's exam is a bit more normal. Not completely. He still has significant rhonchi. Breath sounds though, are improved. Abdomen soft bowel sounds are heard. No masses or tenderness. Extremities are intact. No cyanosis clubbing or edema. Skin is without rash or lesion. Neurologic examination is brief but nonfocal. - Labs CBC & Chem 7: 04/25/18 06:23 04/25/18 06:23 Labs: Abnormal Lab Results - Last 24 Hours (Table) 04/25/18 04/25/18 Range/Units 06:23 06:23 RBC 3.48 L (4.30-5.90) m/uL Hgb 11.8 L (13.0-17.5) gm/dL Hct 35.9 L (39.0-53.0) % MCV 103.0 H (80.0-100.0) fL Sodium 124 L (137-145) mmol/L Chloride 85 L (98-107) mmol/L Carbon Dioxide 35 H (22-30) mmol/L Creatinine 0.39 L (0.66-1.25) mg/dL Microbiology - Last 24 Hours (Table) 04/23/18 09:26 Gram Stain - Preliminary Sputum Sputum Culture - Preliminary Gram Neg Bacilli Gram Neg Bacilli#2 04/22/18 10:55 Blood Culture - Preliminary Blood No Growth after 48 hours Assessment and Plan Assessment: Assessment Cough and shortness of breath, likely reflecting a episode of tracheobronchitis rather than perry pneumonia. Two different gram-negative bacilli in sputum, yet to be identified. Chronically elevated right hemidiaphragm Bibasilar atelectasis Recent episode of aspiration pneumonia requiring bronchoscopy and BAL, samples negative History of multiple myeloma Vocal cord paralysis History of COPD History of CVA History of GERD History of rheumatoid arthritis History of chronic dysphagia History of Phillips's esophagus Currently being evaluated by [facility] for a neurodegenerative disease Plan: Plan dated 04/23/2018 White count 5.6 hemoglobin 11.9 hematocrit 37.1 and normal platelet count. Sodium 138 potassium 4.8 chloride 73 CO2 35. Anion gap normal. BUN and creatinine were 14 and 0.40, respectively. C. diff studies were negative. X- ray labs and medications are reviewed. Chest x-ray reveals only bibasilar linear atelectasis and a chronically elevated right diaphragm. No perry pneumonia seen in my opinion. I doubt the need for anything other than oral antibiotics. I will also add a Medrol Dosepak for some bronchospasm and bronchial inflammation. Plan dated 04/24/2018 Sputum from April 23 shows gram-negative bacilli yet to be identified. Also , from April 24, white count 4.8 implement 11.6 hematocrit 35.6 and platelet count is normal. Sodium 126 potassium 4.4 chloride 89 CO2 34. BUN 14 with a creatinine of 0.34. Medications are reviewed. Given the gram-negative bacilli which is not yet been identified in the sputum from the , antibiotics may need to be changed. We'll allow infectious disease to do that. Additional recommendations and suggestions are forthcoming. The patient should be chronically an aspiration precautions. He such as food slowly. Additional recommendations and suggestions are forthcoming. Plan dated 04/25/2018 The patient continues to show improvement on a daily basis. As below, labs are reviewed. Sputum from April 23 showing 2 different gram-negative bacilli, yet to be identified. The patient will stay on current breathing medications including Mucomyst Omnicef guaifenesin and steroids. Prognosis is guarded. We' ll continue to follow closely. Hopeful discharge in next 24-48 hours. Time with Patient: Less than 30
--- NOTE | 2018-04-25 13:20 | P.CONS ---
History of Present Illness - Reason for Consult Consult date: 04/23/18 - History of Present Illness Mr Pal is a pleasant WM, with multiple, but well controlled medical problems. He was noted to have increase in MCV to 102 in 11/08. This has persisted, with drop in WBC to 3.4 at the same time. On 05/02/15, MCV was 102.9, WBC 3.2, with Hgb now down to 12.9, from 14.5 in 11/08. He was thus referred here for further evaluation and recommendations. There was a questionable h/o a bleeding dyscrasia in his teens, but he has had multiple surgeries since without a problem. Additional w/u was ordered. 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 His OSCAR was also positive at 1:1280. He had a bone marrow aspiration and biopsy on 06/24/15, revealing 15-20% involvement. His dsDNA was also positive. 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 He was referred to Rheumatology and was placed on Plaquenil. He was admitted to [facility] in early 05/12 with new onset LE weakness. He was found to have aspiration and had a PEG placed. 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 His disease was felt to be stable and continued observation was recommended. the patient had a recent hospitalization for shortness of breath, that was found to be due to mucous plugging, and improved with antibiotics aspiration. He was readmitted, with again increased shortness of breath, and cough. He denied any fever or chills. consult was placed for further evaluation and recommendations Review of Systems Constitutional: Reports weakness, Reports weight loss Eyes: denies blurred vision, denies pain Ears: deny: decreased hearing, ear discharge, earache, tinnitus Ears, nose, mouth and throat: Reports dysphagia, Reports voice changes Cardiovascular: Reports decreased exercise tolerance Respiratory: Reports congestion, Reports cough with sputum, Reports dyspnea Gastrointestinal: Denies abdominal pain, Denies diarrhea, Denies nausea, Denies vomiting Genitourinary: Reports as per HPI Musculoskeletal: Reports muscle weakness Integumentary: Reports as per HPI, Denies pruritus, Denies rash Neurological: Reports as per HPI, Reports change in speech, Reports weakness Psychiatric: Denies anxiety, Denies depression Endocrine: Reports fatigue, Reports weight change Hematologic/Lymphatic: Reports as per HPI Past Medical History Past Medical History: Blood Disorder, COPD, CVA/TIA, GERD/Reflux, Rheumatoid Arthritis (RA) Additional Past Medical History / Comment(s): DYSPHAGIA, ASPIRATION PRECAUTIONS , 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 Gaping esophagus, barretts esophagus. EGD, pt stated had flu and pne vaccines but not sure of dates,copy writer unable to verify dates at time of admit d/t office closed. 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 Nasal reduction, PEG tube placement , local cord surgery, Additional Past Anesthesia/Blood Transfusion Reaction / Comm: PARALYZED VOCAL CHORDS Past Psychological History: Anxiety Smoking Status: Former smoker Past Alcohol Use History: Occasional Additional Past Alcohol Use History / Comment(s): Patient started smoking 1961 and quit in 1971-smoked 1 ppd. He lives at home with his . 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 There are no animals in the home. He enjoys deer hunting. He has traveled throughout the [place] with his and cruises to [place] in the [facility]. home 02, [facility]. He uses a cane for ambulation. Past Drug Use History: None Reported - Past Family History Sister(s) Additional Family Medical History / Comment(s): passed colon CA Brother(s) Additional Family Medical History / Comment(s): sarcidosis Mother Additional Family Medical History / Comment(s): lung CA Son(s) Family Medical History: Hypertension Additional Family Medical History / Comment(s): lymphoma, sarcoidosis Medications and Allergies Home Medications Medication Instructions Recorded Confirmed Type Omeprazole 20 mg PEG/G-TUBE BID 07/31/14 04/22/18 History Ipratropium/Albuterol Sulfate 1 puff INHALATION RT-QID 05/01/17 04/22/18 History [Combivent Respimat Inhaler] Loratadine-Pseudoeph 10-240 mg 1 tab PEG/G-TUBE DAILY 05/01/17 04/22/18 History [Claritin-D 24 Hour] Multivit-Min/FA/Lycopen/Lutein 1 tab PEG/G-TUBE DAILY 08/09/17 04/22/18 History [Centrum Silver Men Tablet] Albuterol Sulfate [Proventil Hfa] 2 puff INHALATION RT-QID PRN 01/28/18 History Aspirin EC [Ecotrin Low Dose] 81 mg PEG/G-TUBE DAILY 01/28/18 04/22/18 History Metoprolol Tartrate [Lopressor] 12.5 mg PEG/G-TUBE DAILY 01/28/18 04/22/18 History Melatonin 5 mg PEG/G-TUBE HS 04/13/18 04/22/18 History Prazosin [Minipress] 1 mg PEG/G-TUBE DAILY 04/13/18 04/22/18 History Zolpidem [Ambien] 10 mg PEG/G-TUBE HS PRN 04/13/18 04/22/18 History Tamsulosin HCl [Flomax] 1 tablet PEG/G-TUBE DAILY 04/19/18 04/22/18 History Acetylcysteine [Mucomyst] 4 ml PO DAILY PRN 04/22/18 04/22/18 History guaiFENesin [Mucinex] 600 mg PO BID 04/23/18 04/23/18 History Allergies Allergy/AdvReac Type Severity Reaction Status Date / Time Penicillins Allergy Itching Verified 04/22/18 11:11 piperacillin [From Zosyn] Allergy Itching Verified 04/22/18 11:11 Sulfa (Sulfonamide Allergy Rash/Hives Verified 04/22/18 11:11 Antibiotics) tazobactam [From Zosyn] Allergy Itching Verified 04/22/18 11:11 Physical Exam Vitals: Vital Signs Temp Pulse Pulse Resp BP Pulse Ox 04/23/18 16:32 88 04/23/18 16:18 88 04/23/18 13:10 98.2 F 69 18 110/67 97 04/23/18 12:47 80 04/23/18 12:36 78 04/23/18 09:10 100 04/23/18 08:55 86 04/23/18 05:00 97.5 F L 81 16 159/94 98 04/22/18 21:00 98.6 F 97 16 151/89 93 L 04/22/18 20:12 94 04/22/18 19:54 96 20 95 Intake and Output 04/23/18 04/23/18 04/23/18 06:59 14:59 22:59 Intake Total 590 Balance 590 Intake: Oral 590 Other: Voiding Method Toilet Toilet Toilet # Voids 2 3 # Bowel Movements 1 Weight 67.132 kg - Constitutional General appearance: mild distress - EENT Eyes: EOMI, PERRLA ENT: hearing grossly normal, normal oropharynx - Neck Neck: no lymphadenopathy Thyroid: bilateral: normal size - Respiratory Respiratory: bilateral: diminished - Cardiovascular Rhythm: regular Heart sounds: normal: S1, S2 - Gastrointestinal PEG tube site clean General gastrointestinal: normal bowel sounds, soft - Integumentary Integumentary: normal - Neurologic Neurologic: CNII-XII intact - Musculoskeletal Musculoskeletal: generalized weakness, strength equal bilaterally - Psychiatric Psychiatric: A&O x's 3, appropriate affect Results CBC & Chem 7: 04/25/18 06:23 04/25/18 06:23 Labs: Abnormal Lab Results - Last 24 Hours (Table) 04/23/18 04/23/18 Range/Units 06:44 06:44 RBC 3.52 L (4.30-5.90) m/uL Hgb 11.9 L (13.0-17.5) gm/dL Hct 37.1 L (39.0-53.0) % MCV 105.4 H (80.0-100.0) fL Lymphocytes # 0.8 L (1.0-4.8) k/uL Sodium 130 L (137-145) mmol/L Chloride 93 L (98-107) mmol/L Carbon Dioxide 35 H (22-30) mmol/L Creatinine 0.40 L (0.66-1.25) mg/dL Microbiology - Last 24 Hours (Table) 04/23/18 09:26 Sputum Culture - Preliminary Sputum 04/22/18 10:55 Blood Culture - Preliminary Blood No Growth after 24 hours Chest x-ray: report reviewed Assessment and Plan (1) COPD exacerbation Narrative/Plan: the patient was recently discharged for her shortness of breath, and then readmitted for the same. Chest x-ray does not show obvious pneumonia. However the patient has been having progressive dysphagia, and also has a weak cough with upper airway congestion. During his previous admission, he was found to have mucous plugging. His current presentation is likely multifactorial, due to upper airway congestion, cough with difficulty clearing secretions, leading to exacerbation of his known COPD. The patient states that he is feeling better with ongoing treatment, including use of mucolytics. Defer to the admitting service and palliative medicine for ongoing treatment Current Visit: Yes Status: Acute Code(s): J44.1 - CHRONIC OBSTRUCTIVE PULMONARY DISEASE W (ACUTE) EXACERBATION SNOMED Code(s): 908767107131004 (2) Multiple myeloma Narrative/Plan: the patient has a asymptomatic, smoldering myeloma, that has been followed with observation. He has had no evidence of progression. He had follow-up exam and labs earlier this month, again showing no progression. He has been evaluated at the [facility]. the specific question was if his underlying myeloma was causing his neurologic issues and a paraneoplastic panel. So far, off to extensive evaluation, there has been no evidence of the same, and therefore treatment of the myeloma has not been recommended CBC is overall stable with mild drop in hemoglobin, that would be explained by his acute illness. Continue to monitor. At this time, no acute oncologic intervention is required Current Visit: No Status: Acute Code(s): C90.00 - MULTIPLE MYELOMA NOT HAVING ACHIEVED REMISSION SNOMED Code(s): 246098793
[2018-04-25] MEDS: BACITRACIN OINT 1 EACH PACKET TOPICAL SCH (14:32)
--- NOTE | 2018-04-25 17:01 | P.PN ---
Subjective Progress Note Date: 04/25/18 Principal diagnosis: Acute bronchitis and diarrhea Mr. Ferro is a 72-year-old male with a past medical history of partial paralysis of left throat, pallor, vocal cord, and in face, history of Phillips's esophagitis coming to the hospital with a chief complaint of dizziness and feeling like passing out. Patient was having diarrhea for about a week 4-5 loose stools. She has blood pressure at home was very low 86 x 63 and his oxygen saturation was 74% and so 911 was called and patient brought into the hospital. Patient was recently admitted to the hospital from April 13 was April 16 and he was treated for aspiration pneumonia, COPD exacerbation and a acute hypoxic respiratory failure. Patient was discharged on clindamycin that he completed. Patient had C. diff checked that was negative. 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 He states he is supposed to get a nerve and muscle biopsy. On 04/25/18 - Today the patient is lying in the bed appears to be no acute distress he does not have any active ongoing complaints. His is at the bedside. Review of systems Constitutional: Denies having any fevers chills or rigors Cardiovascular: No chest pain or palpitations Respiratory: Patient complains that he has sputum that is very thick in consistency when he coughs it up and that it is difficult for him to cough without. GI: No abdominal pain nausea vomiting , diarrhea - resolved. : denies hematuria or dysuria Objective - Vital Signs Vital signs: Vital Signs Temp 98.0 F 04/25/18 13:05 Pulse 95 04/25/18 16:16 Resp 20 04/25/18 13:05 BP 113/64 04/25/18 13:05 Pulse Ox 93 L 04/25/18 13:05 Intake & Output 04/24/18 04/25/18 04/25/18 18:59 06:59 18:59 Intake Total 1815 670 480 Balance 1815 670 480 Intake: Intake, IV Titration 375 80 Amount Sodium Chloride 0.9% 1, 375 80 000 ml @ 75 mls/hr IV . [id number] [facility] Rx#:[id number] Oral 590 Tube Feeding 1440 480 Other: Voiding Method Toilet Toilet Toilet # Voids 2 1 1 - Exam Gen: This is a 73-year-old male patient. No acute distress HEENT: Temporal wasting is noted .Head is atraumatic, normocephalic. Pupils equal, round. Sclerae is anicteric. Conjunctiva slightly pale. Mucous members of the mouth are moist. No oral lesions or thrush noted. NECK: Supple. No JVD. No lymphadenopathy. No thyromegaly. LUNGS: Coarse breath sounds. No wheezing. No accessory muscle usage. No intercostal retractions. HEART: Regular rate and rhythm. No murmur. ABDOMEN: Soft. Bowel sounds are present. No masses. No tenderness. PEG tube in place with no erythema or significant drainage at the site. EXTREMITIES: No pedal edema. No calf tenderness. Dorsalis pedis palpable bilaterally. NEUROLOGICAL: Patient is awake, alert and oriented x3. No focal neural deficits on groos exam. - Labs CBC & Chem 7: 04/25/18 06:23 04/25/18 06:23 Labs: Abnormal Lab Results - Last 24 Hours (Table) 04/25/18 04/25/18 Range/Units 06:23 06:23 RBC 3.48 L (4.30-5.90) m/uL Hgb 11.8 L (13.0-17.5) gm/dL Hct 35.9 L (39.0-53.0) % MCV 103.0 H (80.0-100.0) fL Sodium 124 L (137-145) mmol/L Chloride 85 L (98-107) mmol/L Carbon Dioxide 35 H (22-30) mmol/L Creatinine 0.39 L (0.66-1.25) mg/dL Microbiology - Last 24 Hours (Table) 04/22/18 10:55 Blood Culture - Preliminary Blood No Growth after 72 hours 04/23/18 09:26 Gram Stain - Preliminary Sputum Sputum Culture - Preliminary Gram Neg Bacilli Gram Neg Bacilli#2 Assessment and Plan Assessment: ASSESSMENT Cough most likely secondary to tracheobronchitis Acute diarrhea; resolved; C. 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 Multiple myeloma Neuromuscular disorder -he is currently being evaluated for related at [facility] Recent episode of aspiration pneumonia Chronically elevated right hemidiaphragm History of rheumatoid arthritis PEG tube for feeding At risk for aspiration GI DVT prophylaxis Plan: Patient was initially started on IV vancomycin that was discontinued and patient was started on Cefdinir oral syrup by ESAU Sahu. Continue with Medrol Dosepak. Sputum cultures pending. Patient's sodium dropped to 126 and he is getting IV fluids were discontinued yesterday and today his sodium dropped to 124. Will check urine lytes. We will have nephrology consult. Continue with the rest of his medication regimen. Continue with PEG tube feeds. Elevation of the head end of the bed for a risk of aspiration pneumonia. Overall prognosis is guarded. Hematology consult pending. Further recommendations to follow depending on the progress of the patient.
[2018-04-25 20:56] LABS: Creatinine,Urine Random 30.1 mg/dL
[2018-04-25] MEDS: MELATONIN 5 MG TABLET PEG/G-TUBE SCH (21:08)
[2018-04-25] MEDS: TAMSULOSIN 0.4 MG CAP.ER.24H PO SCH (21:08)
[2018-04-26] MEDS: methylPREDNISolone 4 MG TAB TAPER PO SCH (07:28)
[2018-04-26] MEDS: ASPIRIN 81 MG PEG/G-TUBE SCH (07:28)
[2018-04-26] MEDS: PANTOPRAZOLE SODIUM 40 MG GRANULE PKT PEG/G-TUBE SCH (07:29)
[2018-04-26] MEDS: LORATADINE-PSEUDOEPH 5-120 MG 1 EACH TAB.ER.12H PO SCH ×2 (07:29→21:58)
[2018-04-26] MEDS: METOPROLOL TARTRATE 12.5 MG TAB PEG/G-TUBE SCH (07:29)
[2018-04-26] MEDS: PRAZOSIN 1 MG CAP PEG/G-TUBE SCH (07:30)
[2018-04-26] MEDS: CEFDINIR ORAL SUSP 1,500 MG/60 ML BOTTLE PEG/G-TUBE SCH ×2 (07:30→21:58)
[2018-04-26] MEDS: HEPARIN SODIUM,PORCINE 5,000 UNIT/ML 1 ML VIAL SQ SCH ×2 (07:31→21:58)
[2018-04-26] MEDS: MULTIVITAMINS, THERA 1 EACH TAB PEG/G-TUBE SCH (07:31)
[2018-04-26] MEDS: guaiFENesin SYRUP 100MG/5ML 200 MG/10 ML CUP PO SCH ×4 (07:33→21:57)
[2018-04-26] MEDS: IPRATROPIUM-ALBUTEROL 3 ML NEB INHALATION SCH ×4 (07:53→19:56)
[2018-04-26 08:32] LABS: Basophils % (A) 0 %; Eosinophils % (A) 0 %; HCT 38.3 % (39.0-53.0); HGB 12.8 gm/dL (13.0-17.5); Lymphocytes # (A) 1.5 k/uL (1.0-4.8); Lymphocytes % (A) 20 %; MCHC 33.5 g/dL (31.0-37.0); MCV 101.5 fL (80.0-100.0); Macrocytosis Slight; Mean Platelet Volume 7.2; Monocytes # (A) 0.4 k/uL (0-1.0); Monocytes % (A) 5 %; Neutrophils # (A) 5.4 k/uL (1.3-7.7); Neutrophils % (A) 74 %; Platelet Count 237 k/uL (150-450); RBC 3.77 m/uL (4.30-5.90); RDW 13.3 % (11.5-15.5); WBC 7.4 k/uL (3.8-10.6)
[2018-04-26 08:50] LABS: Anion Gap 8 mmol/L; Blood Urea Nitrogen 12 mg/dL (9-20); Calcium 8.8 mg/dL (8.4-10.2); Carbon Dioxide 30 mmol/L (22-30); Chloride 84 mmol/L (98-107); Glucose 83 mg/dL (74-99); Potassium 4.7 mmol/L (3.5-5.1); Sodium 122 mmol/L (137-145); Uric Acid 1.9 mg/dL (3.5-8.5)
--- NOTE | 2018-04-26 09:51 | P.PN ---
Subjective 73-year-old male who we thought we saw him yesterday likely had an episode of tracheobronchitis rather than perry pneumonia. The patient does have a history of chronically elevated right hemidiaphragm by basilar atelectasis recent episode of aspiration pneumonia requiring bronchoscopy/BAL, multiple myeloma, vocal cord paralysis, COPD, CVA, GERD, rheumatoid arthritis, chronic dysphagia, Phillips's esophagus, and possibly a neurodegenerative disease which is being evaluated and worked up at [facility]. Currently, the patient is doing reasonably well. Apparently last night he had loss of phlegm and secretions. Sometimes is difficult for him to get it out. He clinically looks relatively well though. His chest x-ray showed a chronically elevated right hemidiaphragm and some right basilar atelectasis. Labs from today show a white count of 4.8 hemoglobin 11.6 hematocrit 35.6 and a normal platelet count. Sodium 126, potassium 4.4 chloride is 89 CO2 34. BUN and creatinine were normal. Sputum sample showing gram-negative bacilli yet to be identified. Blood cultures were negative. Clinically, the patient looks reasonably well. We did recommend aspiration precautions with head of bed elevated at all times. 04/26/2018 Patient was lying in bed not in distress comfortable. No more dizziness. His diarrhea is resolving as per patient yesterday have 2-3 times bowel movement and there were also amounts and the mental between solids and liquids. He still have little cuff right lung but is better. And patient thinks his breathing is better than when he came in Objective - Vital Signs Vital signs: Vital Signs Temp 97.9 F 04/26/18 05:00 Pulse 84 04/26/18 08:06 Resp 16 04/26/18 05:00 BP 141/79 04/26/18 05:00 Pulse Ox 92 L 04/26/18 05:00 Intake & Output 04/25/18 04/26/18 04/26/18 18:59 06:59 18:59 Intake Total 480 1420 Balance 480 1420 Intake: Oral 1180 Tube Feeding 480 240 Other: Voiding Method Toilet Toilet # Voids 1 2 - Exam -GENERAL: The patient is alert and oriented x3, not in any acute distress. He looks thin and emaciated. Patient with slurred speech, which is his baseline from vocal cord paralysis probably HEENT: Pupils are round and equally reacting to light. EOMI. No scleral icterus. No conjunctival pallor. Normocephalic, atraumatic. No pharyngeal erythema. No thyromegaly. CARDIOVASCULAR: S1 and S2 present. No murmurs, rubs, or gallops. -PULMONARY: Chest is clear to auscultation, no wheezing, bilateral basal crepitation and harsh breath sounds -ABDOMEN: Soft, nontender, nondistended, normoactive bowel sounds. No palpable organomegaly. PEG tube is in a Place with no surrounding inflammation or cellulitis MUSCULOSKELETAL: No joint swelling or deformity. EXTREMITIES: No cyanosis, clubbing, or pedal edema. NEUROLOGICAL: Gross neurological examination did not reveal any focal deficits. SKIN: No rashes. - Labs CBC & Chem 7: 04/26/18 07:27 04/26/18 07:27 Labs: Abnormal Lab Results - Last 24 Hours (Table) 04/26/18 04/26/18 Range/Units 07:27 07:27 RBC 3.77 L (4.30-5.90) m/uL Hgb 12.8 L (13.0-17.5) gm/dL Hct 38.3 L (39.0-53.0) % MCV 101.5 H (80.0-100.0) fL Sodium 122 L (137-145) mmol/L Chloride 84 L (98-107) mmol/L Creatinine 0.42 L (0.66-1.25) mg/dL Uric Acid 1.9 L (3.5-8.5) mg/dL Microbiology - Last 24 Hours (Table) 04/22/18 10:55 Blood Culture - Preliminary Blood No Growth after 72 hours 04/23/18 09:26 Gram Stain - Preliminary Sputum Sputum Culture - Preliminary Gram Neg Bacilli Gram Neg Bacilli#2 Assessment and Plan Assessment: Possible tracheobronchitis rather than bilateral pneumonia Loose bowel movement for about a week, C. diff: Negative Hypotension, resolved Essential hypertension History of neuromuscular disorder History of vocal cord paralysis with aspiration precautions History of Phillips's esophagus. COPD, not in acute exacerbation History of CVA/TIA Plan: This is a pleasant 73 years old male who presents with Possible tracheobronchitis rather than bilateral pneumonia as per pulmonary evaluation. Pulmonary and infectious disease evaluation is appreciated. Vancomycin has been discontinued went and patient was started on CEFDINIR oral syrup, as well as Medrol Dosepak . Metoprolol was started at 12.5 mg. Continue with antibiotics, continue same treatment. Continue symptomatic treatment. Resume home medication. Follow-up culture results. Monitor lytes and vitals. DVT and GI prophylaxis. Further recommendations based on the clinical course of the patient. DVT prophylaxis: Subcutaneous heparin GI prophylaxis: Pepcid PT/OT: Home with family Prognosis is guarded
[2018-04-26] MEDS: BACITRACIN OINT 1 EACH PACKET TOPICAL SCH (13:01)
--- NOTE | 2018-04-26 15:54 | P.PN ---
Subjective Progress Note Date: 04/26/18 Principal diagnosis: Hypoxia Patient seen this am no issues. Objective - Vital Signs Vital signs: Vital Signs Temp 98.3 F 04/26/18 12:39 Pulse 70 04/26/18 12:39 Resp 18 04/26/18 12:39 BP 111/67 04/26/18 12:39 Pulse Ox 95 04/26/18 12:39 Intake & Output 04/25/18 04/26/18 04/26/18 18:59 06:59 18:59 Intake Total 480 1420 240 Balance 480 1420 240 Intake: Oral 1180 Tube Feeding 480 240 240 Other: Voiding Method Toilet Toilet Toilet # Voids 1 2 2 - Exam - Constitutional General appearance: mild distress - EENT Eyes: EOMI, PERRLA ENT: hearing grossly normal, normal oropharynx - Neck Neck: no lymphadenopathy Thyroid: bilateral: normal size - Respiratory Respiratory: bilateral: diminished - Cardiovascular Rhythm: regular Heart sounds: normal: S1, S2 - Gastrointestinal PEG tube site clean General gastrointestinal: normal bowel sounds, soft - Integumentary Integumentary: normal - Neurologic Neurologic: CNII-XII intact - Musculoskeletal Musculoskeletal: generalized weakness, strength equal bilaterally - Psychiatric Psychiatric: A&O x's 3, appropriate affect - Labs CBC & Chem 7: 04/26/18 07:27 04/26/18 07:27 Labs: Abnormal Lab Results - Last 24 Hours (Table) 04/26/18 04/26/18 Range/Units 07:27 07:27 RBC 3.77 L (4.30-5.90) m/uL Hgb 12.8 L (13.0-17.5) gm/dL Hct 38.3 L (39.0-53.0) % MCV 101.5 H (80.0-100.0) fL Sodium 122 L (137-145) mmol/L Chloride 84 L (98-107) mmol/L Creatinine 0.42 L (0.66-1.25) mg/dL Uric Acid 1.9 L (3.5-8.5) mg/dL Microbiology - Last 24 Hours (Table) 04/22/18 10:55 Blood Culture - Preliminary Blood No Growth after 96 hours Assessment and Plan Plan: Assessment and Recommendations: Assessment and Plan (1) COPD exacerbation Narrative/Plan: . The patient states that he is feeling better with ongoing treatment, including use of mucolytics. Defer to the admitting service and palliative medicine for ongoing treatment Current Visit: Yes Status: Acute Code(s): J44.1 - CHRONIC OBSTRUCTIVE PULMONARY DISEASE W (ACUTE) EXACERBATION SNOMED Code(s): 664830050287254 (2) Multiple myeloma Narrative/Plan: the patient has a asymptomatic, smoldering myeloma, that has been followed with observation. - Continue on observation Current Visit: No Status: Acute Code(s): C90.00 - MULTIPLE MYELOMA NOT HAVING ACHIEVED REMISSION SNOMED Code(s): 258208001
[2018-04-26] MEDS: SODIUM CHLORIDE 0.9% 1,000 ML IV SCH (16:54)
--- NOTE | 2018-04-26 19:14 | CONS ---
CONSULTATION REASON FOR CONSULT: Hyponatremia. HISTORY OF PRESENT ILLNESS: Patient is a 73-year-old male who is admitted to the hospital on 04/22/2018 with complaints of dizziness. He was hypotensive when he first came in, his blood pressure was 86/63, and he was hypoxic with O2 sats of 74%. The patient does have underlying COPD, history of CVA/TIA with vocal cord paralysis. Currently has a PEG tube in place. The patient has a history of Phillips's esophagus as well. He states that he has had low sodium previously. However, on this admission, it was noted to be at 131 mEq/L initially and then dropped down to 126 and 122 today. I do not see any normal saline. Currently, the patient did receive a bolus initially on admission. Currently his IV fluids are hep welled. The patient denies any nausea, vomiting, diarrhea. His urine osmolality was high at 520. This was done yesterday with a random urine sodium of 132. The patient denies any numbness, tingling, weakness. PAST MEDICAL HISTORY: COPD, vocal cord paralysis with PEG tube, multiple myeloma, history of CVA/TIA. Rheumatoid arthritis, Phillips's esophagus. PAST SURGICAL HISTORY: Appendectomy, hernia repair, tonsillectomy, hemorrhoidectomy, vocal cord surgeries, PEG tube placement. SOCIAL HISTORY: Patient is a former smoker. No history of drug abuse or alcohol abuse. MEDICATIONS: Prior to admission included omeprazole, loratadine, aspirin, melatonin, Lopressor, Minipress, Ambien, Flomax, Mucomyst. ALLERGIES: Include PENICILLIN AND PIPERACILLIN, SULFA, ZOSYN. EXAMINATION: Patient is currently comfortable, awake, alert, oriented x3. He is not in any acute distress. Blood pressure was 111/67, heart rate 95 per minute. He is afebrile. Examination of the heart S1, S2. Examination of lungs bilateral breath sounds are heard. Abdomen is soft, nontender. Examination lower extremities shows no evidence of edema. 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 Patient moving all 4 extremities. LAB: Show sodium 122, potassium 4.7, serum creatinine 0.42. Urine osmolality 520. Random urine sodium 132. I do not see a TSH. Hemoglobin was 11.9 g/dL. ASSESSMENT: 1. Hyponatremia, possibly hypovolemic. However, it appears that the serum sodium worsened with the administration of saline. The patient was hypotensive at the time of admission. Therefore, I will rechallenge him with saline. I will draw a sodium level prior to the saline administration. The urine osmolality is high, and if the serum sodium worsens with the saline, then we are likely dealing with SIADH. TSH and random cortisol level will be ordered as well. The patient may need 3% saline if his sodium worsens further. 2. History of vocal cord paralysis with PEG Tube maintained on tube feedings. 3. History of chronic obstructive pulmonary disease. 4. History of cerebrovascular accident. 5. History of rheumatoid arthritis. 6. Possible neurodegenerative disorder being followed at [facility]. PLAN: Check sodium level now. Check TSH and cortisol level as well and rechallenge with saline. Thank you for this consultation. We will continue to follow the patient with you during his hospitalization. KLAUS / JESENIA: [id number] /
[2018-04-26] MEDS ORDERED: FUROSEMIDE 10 MG/ML 2 ML VIAL IV STA (20:51)
[2018-04-26] MEDS: TAMSULOSIN 0.4 MG CAP.ER.24H PO SCH (21:57)
[2018-04-26] MEDS: MELATONIN 5 MG TABLET PEG/G-TUBE SCH (21:57)
--- NOTE | 2018-04-26 22:36 | P.PN ---
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 Vision has history of rheumatoid arthritis not currently on DMARD. He is status post PEG tube placement due to history of aspiration and weight loss. He states he has had a weight gain of 32 pounds over the past year secondary to the PEG tube. He is taking medications orally but most are being crushed and go through his PEG tube. He had a recent hospitalization April 13 through April 16 at which time he was treated for aspiration pneumonia, COPD exacerbation, acute hypoxic respiratory failure. He was discharged on clindamycin for 5 day course which she completed and he was also set up for oxygen. He came into the [facility] ER on April 19 due to shortness of breath and he noted trouble swallowing his pills that day. He was stabilized and then discharged home. Yesterday he was experiencing dizziness and felt like he was going to pass out and his blood pressure was 86/63 and pulse ox was 74% on oxygen. His called 911 and ambulance brought him into [facility] emergency center for evaluation. His chest x-ray showed stable elevated right hemidiaphragm with bilateral atelectasis or infiltrate. His white count was at 5.6, he was afebrile, creatinine 0.54. Albumin 3.1. He was checked for C. diff which was negative. He states he was having loose stools for about a week 4-5 stools per day but this morning he had a soft formed bowel movement. Blood cultures status received and sputum culture has been sent. Patient has been seen by Dr. Mendez with no perry pneumonia seen in his opinion. And no need for any other antibiotics but oral. Medrol dose pack was ordered Dr. Ricci. Patient did receive Decadron in the ER.. Patient did receive Decadron, Levaquin and vancomycin in the emergency center and admitted to the [facility] floor and continued on vancomycin. Patient has a follow-up appointment with [place] for a muscle and nerve biopsies and is known to have an abdominal aneurysm that is being monitored. 04/26/2018 patient is feeling somewhat better. He has been evaluated by pulmonary critical care and is agreed that some tracheobronchitis is likely occurring without perry pneumonia. His antibiotic therapy is being streamlined and he is on a per PEG steroid therapy. Likely for discharge home soon. The patient himself is feeling somewhat better. The loose stools have improved. Objective - Vital Signs Vital signs: Vital Signs Temp 97.6 F 04/26/18 20:45 Pulse 77 04/26/18 20:45 Resp 18 04/26/18 20:45 BP 154/74 04/26/18 20:45 Pulse Ox 96 04/26/18 20:45 Intake & Output 04/26/18 04/26/18 04/27/18 06:59 18:59 06:59 Intake Total 1420 480 Balance 1420 480 Weight 67.132 kg Intake: Oral 1180 Tube Feeding 240 480 Other: Voiding Method Toilet Toilet # Voids 2 2 - Exam Gen: This is a 73-year-old male patient. He is sitting up in bed and appears to be comfortable. HEENT: Head is atraumatic, normocephalic. Pupils equal, round. Sclerae is anicteric. Conjunctiva slightly pale. Mucous members of the mouth are moist. No oral lesions or thrush noted. NECK: Supple. No JVD. No lymphadenopathy. No thyromegaly. LUNGS: Coarse breath sounds. No wheezing. No accessory muscle usage. No intercostal retractions. HEART: Regular rate and rhythm. No murmur. ABDOMEN: Soft. Bowel sounds are present. No masses. No tenderness. PEG tube in place with no erythema or significant drainage at the site. EXTREMITIES: No pedal edema. No calf tenderness. Dorsalis pedis palpable bilaterally. NEUROLOGICAL: Patient is awake, alert and oriented x3. He has some significant generalized weakness - Labs CBC & Chem 7: 04/26/18 07:27 04/26/18 20:00 Labs: Abnormal Lab Results - Last 24 Hours (Table) 04/26/18 04/26/18 04/26/18 Range/Units 07:27 07:27 15:31 RBC 3.77 L (4.30-5.90) m/uL Hgb 12.8 L (13.0-17.5) gm/dL Hct 38.3 L (39.0-53.0) % MCV 101.5 H (80.0-100.0) fL Sodium 122 L 122 L (137-145) mmol/L Chloride 84 L (98-107) mmol/L Creatinine 0.42 L (0.66-1.25) mg/dL Uric Acid 1.9 L (3.5-8.5) mg/dL 04/26/18 Range/Units 20:00 RBC (4.30-5.90) m/uL Hgb (13.0-17.5) gm/dL Hct (39.0-53.0) % MCV (80.0-100.0) fL Sodium 123 L (137-145) mmol/L Chloride (98-107) mmol/L Creatinine (0.66-1.25) mg/dL Uric Acid (3.5-8.5) mg/dL Microbiology - Last 24 Hours (Table) 04/22/18 10:55 Blood Culture - Preliminary Blood No Growth after 96 hours Laboratory Results WBC 7.4 k/uL (3.8-10.6) 04/26/18 07:27 RBC 3.77 m/uL (4.30-5.90) L 04/26/18 07:27 Hgb 12.8 gm/dL (13.0-17.5) L 04/26/18 07:27 Hct 38.3 % (39.0-53.0) L 04/26/18 07:27 MCV 101.5 fL (80.0-100.0) H 04/26/18 07:27 MCH 34.0 pg (25.0-35.0) 04/26/18 07: MCHC 33.5 g/dL (31.0-37.0) 04/26/18 07:27 RDW 13.3 % (11.5-15.5) 04/26/18 07:27 Plt Count 237 k/uL (150-450) 04/26/18 07:27 Neutrophils % 74 % 04/26/18 07:27 Lymphocytes % 20 % 04/26/18 07:27 Monocytes % 5 % 04/26/18 07:27 Eosinophils % 0 % 04/26/18 07:27 Basophils % 0 % 04/26/18 07:27 Neutrophils # 5.4 k/uL (1.3-7.7) 04/26/18 07:27 Lymphocytes # 1.5 k/uL (1.0-4.8) 04/26/18 07:27 Monocytes # 0.4 k/uL (0-1.0) 04/26/18 07:27 Eosinophils # 0.0 k/uL (0-0.7) 04/26/18 07:27 Basophils # 0.0 k/uL (0-0.2) 04/26/18 07:27 Macrocytosis Slight 04/26/18 07:27 PT 9.7 sec (9.0-12.0) 04/22/18 10:55 INR 1.0 (<1.2) 04/22/18 10:55 APTT 23.7 sec (22.0-30.0) 04/22/18 10:55 Sodium 123 mmol/L (137-145) L 04/26/18 20:00 Potassium 4.7 mmol/L (3.5-5.1) 04/26/18 07:27 Chloride 84 mmol/L (98-107) L 04/26/18 07:27 Carbon Dioxide 30 mmol/L (22-30) 04/26/18 07:27 Anion Gap 8 mmol/L 04/26/18 07:27 BUN 12 mg/dL (9-20) 04/26/18 07:27 Creatinine 0.42 mg/dL (0.66-1.25) L 04/26/18 07:27 Est GFR (CKD-EPI)AfAm >90 (>60 ml/min/1.73 sqM) 04/26/18 07:27 Est GFR (CKD-EPI)NonAf >90 (>60 ml/min/1.73 sqM) 04/26/18 07:27 Glucose 83 mg/dL (74-99) 04/26/18 07:27 Uric Acid 1.9 mg/dL (3.5-8.5) L 04/26/18 07:27 Calcium 8.8 mg/dL (8.4-10.2) 04/26/18 07:27 Magnesium 1.9 mg/dL (1.6-2.3) 04/22/18 10:55 Total Bilirubin 0.6 mg/dL (0.2-1.3) 04/22/18 10:55 AST 28 U/L (17-59) 04/22/18 10:55 ALT 33 U/L (21-72) 04/22/18 10:55 Alkaline Phosphatase 92 U/L (38-126) 04/22/18 10:55 Total Creatine Kinase 60 U/L (55-170) 04/22/18 10:55 CK-MB (CK-2) 2.1 ng/mL (0.0-2.4) 04/22/18 10:55 CK-MB (CK-2) Rel Index 3.5 04/22/18 10:55 Troponin I <0.012 ng/mL (0.000-0.034) 04/22/18 10:55 NT-Pro-B Natriuret Pep 110 pg/mL 04/22/18 10:55 Total Protein 6.3 g/dL (6.3-8.2) 04/22/18 10:55 Albumin 3.1 g/dL (3.5-5.0) L 04/22/18 10:55 TSH 0.734 mIU/L (0.465-4.680) 04/26/18 15:31 Cortisol 3 ug/dL 04/26/18 15:31 Urine Color Yellow 04/23/18 21:30 Urine Appearance Clear (Clear) 04/23/18 21:30 Urine pH 7.0 (5.0-8.0) 04/23/18 21:30 Ur Specific [place] 1.012 (1.001-1.035) 04/25/18 20:00 Urine Protein Negative (Negative) 04/23/18 21:30 Urine Glucose (UA) Negative (Negative) 04/23/18 21:30 Urine Ketones Negative (Negative) 04/23/18 21:30 Urine Blood Negative (Negative) 04/23/18 21:30 Urine Nitrite Negative (Negative) 04/23/18 21:30 Urine Bilirubin Negative (Negative) 04/23/18 21:30 Urine Urobilinogen 3.0 mg/dL (<2.0) 04/23/18 21:30 Ur Leukocyte Esterase Negative (Negative) 04/23/18 21:30 Urine RBC 26 /hpf (0-5) H 04/22/18 13:00 Urine WBC 2 /hpf (0-5) 04/22/18 13:00 Ur Squamous Epith Cells 1 /hpf (0-4) 04/22/18 13:00 Amorphous Sediment Rare /hpf (None) H 04/22/18 13:00 Urine Mucus Rare /hpf (None) H 04/22/18 13:00 Urine Osmolality 520 mosm/kg (50-1400) 04/25/18 20:00 Ur Random Creatinine 30.1 mg/dL 04/25/18 20:00 Ur Random Sodium 132 mmol/L 04/25/18 20:00 Vancomycin Trough <5.0 ug/mL 04/24/18 07:36 C. difficile (EIA) Intrp Negative (Negative) 04/23/18 06:00 Microbiology 04/22/18 10:55 Blood Blood Culture - Preliminary No Growth after 96 hours 04/23/18 09:26 Sputum Gram Stain - Preliminary 04/23/18 09:26 Sputum Sputum Culture - Preliminary Gram Neg Bacilli Gram Neg Bacilli#2 - Imaging and Cardiology Chest x-ray: report reviewed (no new infiltrate) Assessment and Plan (1) COPD exacerbation Narrative/Plan: very pleasant 73-year-old gentleman has significant neuromuscular disease that is being worked up [facility]. He has been seen by pulmonary critical care at this time does not appear to have pneumonia. He is being treated with steroids for some bronchospasm and was some purulent tracheobronchitis oral antibiotic therapy will be initiated with cefuroxime. The patient does have some difficulties with the thickness of the secretions and relates that Mucomyst at home has helped him at times. We discussed that he likely is not getting enough free water and a daily basis. This will keep him somewhat chronically dehydrated which will keep his secretions thick. I suggested they get a picture that is clear that they can put his name on and fill it daily with water, the patient can then throughout the day make sure he is getting enough fluid through his PEG tube to keep his hydration well. The family can also help him to ensure that after medications due to free water flush. And I am in full agreement to limit the amount of free water to get him right before a meal so that doesn't decrease his ability to take in protein nutrition and reduce the risk of reflux. 04/26/2018 patient is feeling somewhat better. He is having less difficulties with thick mucus. He has been seen by nephrology for his hyponatremia and possible SIADH. Workup is in progress. Once this is improved will likely be ready for discharge to his home. Antibiotic therapy as per PEG to complete the treatment of his tracheobronchitis over the next few days. Current Visit: Yes Status: Acute Code(s): J44.1 - CHRONIC OBSTRUCTIVE PULMONARY DISEASE W (ACUTE) EXACERBATION SNOMED Code(s): 291473622346694
[2018-04-27 02:04] LABS: Anion Gap 9 mmol/L; Blood Urea Nitrogen 19 mg/dL (9-20); Calcium 8.7 mg/dL (8.4-10.2); Carbon Dioxide 29 mmol/L (22-30); Chloride 84 mmol/L (98-107); Glucose 92 mg/dL (74-99); Potassium 4.5 mmol/L (3.5-5.1); Sodium 122 mmol/L (137-145)
[2018-04-27 08:21] LABS: Anion Gap 3 mmol/L; Blood Urea Nitrogen 17 mg/dL (9-20); Calcium 8.6 mg/dL (8.4-10.2); Carbon Dioxide 36 mmol/L (22-30); Chloride 85 mmol/L (98-107); Glucose 80 mg/dL (74-99); Potassium 4.7 mmol/L (3.5-5.1); Sodium 124 mmol/L (137-145)
[2018-04-27] MEDS: PRAZOSIN 1 MG CAP PEG/G-TUBE SCH (08:28)
[2018-04-27] MEDS: methylPREDNISolone 4 MG TAB TAPER PO SCH (08:28)
[2018-04-27] MEDS: CEFDINIR ORAL SUSP 1,500 MG/60 ML BOTTLE PEG/G-TUBE SCH ×2 (08:29→20:56)
[2018-04-27] MEDS: ASPIRIN 81 MG PEG/G-TUBE SCH (08:29)
[2018-04-27] MEDS: PANTOPRAZOLE SODIUM 40 MG GRANULE PKT PEG/G-TUBE SCH (08:29)
[2018-04-27] MEDS: MULTIVITAMINS, THERA 1 EACH TAB PEG/G-TUBE SCH (08:29)
[2018-04-27] MEDS: LORATADINE-PSEUDOEPH 5-120 MG 1 EACH TAB.ER.12H PO SCH ×2 (08:29→20:57)
[2018-04-27] MEDS: METOPROLOL TARTRATE 12.5 MG TAB PEG/G-TUBE SCH (08:29)
[2018-04-27] MEDS: HEPARIN SODIUM,PORCINE 5,000 UNIT/ML 1 ML VIAL SQ SCH ×2 (08:29→20:56)
[2018-04-27] MEDS: guaiFENesin SYRUP 100MG/5ML 200 MG/10 ML CUP PO SCH ×4 (08:45→20:56)
[2018-04-27] MEDS: IPRATROPIUM-ALBUTEROL 3 ML NEB INHALATION SCH ×4 (10:02→20:18)
[2018-04-27] MEDS: BACITRACIN OINT 1 EACH PACKET TOPICAL SCH (11:09)
--- NOTE | 2018-04-27 13:17 | P.PN ---
Subjective 73-year-old male who we thought we saw him yesterday likely had an episode of tracheobronchitis rather than perry pneumonia. The patient does have a history of chronically elevated right hemidiaphragm by basilar atelectasis recent episode of aspiration pneumonia requiring bronchoscopy/BAL, multiple myeloma, vocal cord paralysis, COPD, CVA, GERD, rheumatoid arthritis, chronic dysphagia, Phillips's esophagus, and possibly a neurodegenerative disease which is being evaluated and worked up at [facility]. Currently, the patient is doing reasonably well. Apparently last night he had loss of phlegm and secretions. Sometimes is difficult for him to get it out. He clinically looks relatively well though. His chest x-ray showed a chronically elevated right hemidiaphragm and some right basilar atelectasis. Labs from today show a white count of 4.8 hemoglobin 11.6 hematocrit 35.6 and a normal platelet count. Sodium 126, potassium 4.4 chloride is 89 CO2 34. BUN and creatinine were normal. Sputum sample showing gram-negative bacilli yet to be identified. Blood cultures were negative. Clinically, the patient looks reasonably well. We did recommend aspiration precautions with head of bed elevated at all times. 04/26/2018 Patient was lying in bed not in distress comfortable. No more dizziness. His diarrhea is resolving as per patient yesterday have 2-3 times bowel movement and there were also amounts and the mental between solids and liquids. He still have little cuff right lung but is better. And patient thinks his breathing is better than when he came in 04/27/2018 patient sterile feels better, with no more dizziness, his breathing and diarrhea are improving. No pain. Some cough with white phlegm but is stable. However patient's sodium still 124 and is on IV fluids as per nephrology recommendations were following the case closely Objective - Vital Signs Vital signs: Vital Signs Temp 97.4 F L 04/27/18 12:32 Pulse 68 04/27/18 12:32 Resp 20 04/27/18 12:32 BP 110/66 04/27/18 12:32 Pulse Ox 94 L 04/27/18 12:32 Intake & Output 04/26/18 04/27/18 04/27/18 18:59 06:59 18:59 Intake Total 480 825 474 Balance 480 825 474 Weight 67.132 kg Intake: Intake, IV Titration 825 Amount Sodium Chloride 0.9% 1, 825 000 ml @ 50 mls/hr IV . Q20H [facility] Rx#:[id number] Tube Feeding 480 474 Other: Voiding Method Toilet Toilet # Voids 2 - Exam -GENERAL: The patient is alert and oriented x3, not in any acute distress. He looks thin and emaciated. Patient with slurred speech, which is his baseline from vocal cord paralysis probably HEENT: Pupils are round and equally reacting to light. EOMI. No scleral icterus. No conjunctival pallor. Normocephalic, atraumatic. No pharyngeal erythema. No thyromegaly. CARDIOVASCULAR: S1 and S2 present. No murmurs, rubs, or gallops. -PULMONARY: Chest is clear to auscultation, no wheezing, bilateral basal crepitation and harsh breath sounds -ABDOMEN: Soft, nontender, nondistended, normoactive bowel sounds. No palpable organomegaly. PEG tube is in a Place with no surrounding inflammation or cellulitis MUSCULOSKELETAL: No joint swelling or deformity. EXTREMITIES: No cyanosis, clubbing, or pedal edema. NEUROLOGICAL: Gross neurological examination did not reveal any focal deficits. SKIN: No rashes. - Labs CBC & Chem 7: 04/26/18 07:27 04/27/18 07:26 Labs: Abnormal Lab Results - Last 24 Hours (Table) 04/26/18 04/26/18 04/27/18 Range/Units 15:31 20:00 01:27 Sodium 122 L 123 L 122 L (137-145) mmol/L Chloride 84 L (98-107) mmol/L Carbon Dioxide (22-30) mmol/L Creatinine 0.41 L (0.66-1.25) mg/dL 04/27/18 Range/Units 07:26 Sodium 124 L (137-145) mmol/L Chloride 85 L (98-107) mmol/L Carbon Dioxide 36 H (22-30) mmol/L Creatinine 0.45 L (0.66-1.25) mg/dL Microbiology - Last 24 Hours (Table) 04/22/18 10:55 Blood Culture - Preliminary Blood No Growth after 120 hours Assessment and Plan Assessment: Possible tracheobronchitis rather than bilateral pneumonia Hyponatremia, nephrology R following the case Loose bowel movement for about a week, C. diff: Negative Hypotension, resolved Essential hypertension History of neuromuscular disorder History of vocal cord paralysis with aspiration precautions History of Phillips's esophagus. COPD, not in acute exacerbation History of CVA/TIA Plan: This is a pleasant 73 years old male who presents with Possible tracheobronchitis rather than bilateral pneumonia as per pulmonary evaluation. Pulmonary and infectious disease evaluation is appreciated. Vancomycin has been discontinued went and patient was started on CEFDINIR oral syrup, as well as Medrol Dosepak . Metoprolol was started at 12.5 mg. patient's sodium was low 122, coming up gradually to 124 on IV fluids. Nephrology following the case. Continue with antibiotics, continue same treatment. Continue symptomatic treatment. Resume home medication. Follow-up culture results. Monitor lytes and vitals. DVT and GI prophylaxis. Further recommendations based on the clinical course of the patient. DVT prophylaxis: Subcutaneous heparin GI prophylaxis: Pepcid PT/OT: Home with family Prognosis is guarded
--- NOTE | 2018-04-27 14:58 | P.PN ---
Subjective Progress Note Date: 04/26/18 Principal diagnosis: Acute tracheobronchitis, no clear evidence of pneumonia Progress note dated 04/24/2018 73-year-old male who we thought we saw him yesterday likely had an episode of tracheobronchitis rather than perry pneumonia. The patient does have a history of chronically elevated right hemidiaphragm by basilar atelectasis recent episode of aspiration pneumonia requiring bronchoscopy/BAL, multiple myeloma, vocal cord paralysis, COPD, CVA, GERD, rheumatoid arthritis, chronic dysphagia, Phillips's esophagus, and possibly a neurodegenerative disease which is being evaluated and worked up at [facility]. Currently, the patient is doing reasonably well. Apparently last night he had loss of phlegm and secretions. Sometimes is difficult for him to get it out. He clinically looks relatively well though. His chest x-ray showed a chronically elevated right hemidiaphragm and some right basilar atelectasis. Labs from today show a white count of 4.8 hemoglobin 11.6 hematocrit 35.6 and a normal platelet count. Sodium 126, potassium 4.4 chloride is 89 CO2 34. BUN and creatinine were normal. Sputum sample showing gram-negative bacilli yet to be identified. Blood cultures were negative. Clinically, the patient looks reasonably well. We did recommend aspiration precautions with head of bed elevated at all times. Progress note dated 04/25/2018 73-year-old male seen in consultation at couple days ago with an episode of tracheobronchitis. The patient does have a history of chronically elevated right hemidiaphragm, and also has a history of aspiration pneumonia multiple myeloma vocal cord paralysis COPD CVA GERD rheumatoid arthritis chronic dysphagia Phillips's esophagus and a neurodegenerative disease which is currently being evaluated at the [facility]. The patient continues to be improved each day. Less and less in the way of secretions or any other pulmonary complaints for that matter. Slept well last night. We do recommend that of the bed elevated at 45 at all times. The patient's white count is 5.5 hemoglobin 11.8 hematocrit 35.9 and platelet count is normal. Sodium 124 potassium 4.5 chloride 85 CO2 35 BUN 13 and creatinine 0.39. Sputum showing 2 different gram-negative bacilli, they have yet to be identified. Blood cultures were negative. On 04/26/2018 patient seen in follow-up on medical surgical floor. He is alert and awake, in no acute distress, pulse ox of 2 L per nasal cannula is 94%. Sputum cultures are positive for 2 different gram-negative bacilli organisms, and the final culture is pending, in the meanwhile patient has no ongoing fever or chills. Patient has no occasional cough with production of some white phlegm , which is stable. Patient is having some diarrhea. C. diff was negative. Today's serum sodium is 123, nephrology is following. No neurological deficits , altered mentation. Cortisol was checked, and it is low at 3, TSH is within normal limits. he is currently on oral Ceftin year, will await the results the final sputum cultures. Objective - Vital Signs Vital signs: Vital Signs Temp 97.4 F L 04/27/18 12:32 Pulse 71 04/27/18 13:49 Resp 20 04/27/18 12:32 BP 110/66 04/27/18 12:32 Pulse Ox 94 L 04/27/18 12:32 Intake & Output 04/26/18 04/27/18 04/27/18 18:59 06:59 18:59 Intake Total 413 893 4423 Balance 612 341 2833 Weight 67.132 kg Intake: Intake, IV Titration 825 400 Amount Sodium Chloride 0.9% 1, 825 400 000 ml @ 50 mls/hr IV . Q20H [facility] Rx#:[id number] Tube Feeding 480 948 Other: Voiding Method Toilet Toilet # Voids 2 - Exam GENERAL EXAM: Alert, pleasant, cachectic 73-year-old white male, comfortable in no apparent distress. Patient has muffled garbled voice due to his history of vocal cord paralysis HEAD: Normocephalic/atraumatic. EYES: Normal reaction of pupils, equal size. Conjunctiva pink, sclera white. NOSE: Clear with pink turbinates. THROAT: No erythema or exudates. NECK: No masses, no JVD, no thyroid enlargement, no adenopathy. CHEST: No chest wall deformity. Symmetrical expansion. LUNGS: Equal air entry with no crackles, wheeze, rhonchi or dullness. CVS: Regular rate and rhythm, normal S1 and S2, no gallops, no murmurs, no rubs ABDOMEN: Soft, nontender. No hepatosplenomegaly, normal bowel sounds, no guarding or rigidity. Patient has a PEG tube in the left upper quadrant, and patient receives bolus tube feedings 2 cans 3 times daily. EXTREMITIES: No clubbing, no edema, no cyanosis, 2+ pulses and upper and lower extremities. MUSCULOSKELETAL: Muscle strength and tone normal. SPINE: No scoliosis or deformity SKIN: No rashes CENTRAL NERVOUS SYSTEM: Alert and oriented -3. No focal deficits, tone is normal in all 4 extremities. PSYCHIATRIC: Alert and oriented -3. Appropriate affect. Intact judgment and insight. - Labs CBC & Chem 7: 04/26/18 07:27 04/27/18 12:35 Labs: Abnormal Lab Results - Last 24 Hours (Table) 04/26/18 04/26/18 04/27/18 Range/Units 15:31 20:00 01:27 Sodium 122 L 123 L 122 L (137-145) mmol/L Chloride 84 L (98-107) mmol/L Carbon Dioxide (22-30) mmol/L Creatinine 0.41 L (0.66-1.25) mg/dL 04/27/18 04/27/18 Range/Units 07:26 12:35 Sodium 124 L 124 L (137-145) mmol/L Chloride 85 L (98-107) mmol/L Carbon Dioxide 36 H (22-30) mmol/L Creatinine 0.45 L (0.66-1.25) mg/dL Microbiology - Last 24 Hours (Table) 04/22/18 10:55 Blood Culture - Preliminary Blood No Growth after 120 hours Assessment and Plan Plan: Assessment: Cough and shortness of breath, likely reflecting a episode of tracheobronchitis rather than perry pneumonia. Two different gram-negative bacilli in sputum, yet to be identified. Chronically elevated right hemidiaphragm Bibasilar atelectasis Recent episode of aspiration pneumonia requiring bronchoscopy and BAL, samples negative Hyponatremia History of multiple myeloma Vocal cord paralysis History of COPD History of CVA History of GERD History of rheumatoid arthritis History of chronic dysphagia History of Phillips's esophagus Plan: Continue current antibiotic coverage, still awaiting the results of the final sputum cultures. Clinically patient is improving, less congested, less short of breath. Nephrology is following regarding the hyponatremia. I'll continue the Medrol Dosepak, nebulized bronchodilators. I performed a history & physical examination of the patient and discussed their management with my nurse practitioner, Carol Key. I reviewed the nurse practitioner's note and agree with the documented findings and plan of care. Lung sounds are positive for clear breath sounds. The findings and the impression was discussed with the patient. I attest to the documentation by the nurse practitioner. Time with Patient: Less than 30
--- NOTE | 2018-04-27 16:29 | P.PN ---
Subjective Progress Note Date: 04/27/18 Principal diagnosis: Acute tracheobronchitis, no clear evidence of pneumonia Progress note dated 04/24/2018 73-year-old male who we thought we saw him yesterday likely had an episode of tracheobronchitis rather than perry pneumonia. The patient does have a history of chronically elevated right hemidiaphragm by basilar atelectasis recent episode of aspiration pneumonia requiring bronchoscopy/BAL, multiple myeloma, vocal cord paralysis, COPD, CVA, GERD, rheumatoid arthritis, chronic dysphagia, Phillips's esophagus, and possibly a neurodegenerative disease which is being evaluated and worked up at [facility]. Currently, the patient is doing reasonably well. Apparently last night he had loss of phlegm and secretions. Sometimes is difficult for him to get it out. He clinically looks relatively well though. His chest x-ray showed a chronically elevated right hemidiaphragm and some right basilar atelectasis. Labs from today show a white count of 4.8 hemoglobin 11.6 hematocrit 35.6 and a normal platelet count. Sodium 126, potassium 4.4 chloride is 89 CO2 34. BUN and creatinine were normal. Sputum sample showing gram-negative bacilli yet to be identified. Blood cultures were negative. Clinically, the patient looks reasonably well. We did recommend aspiration precautions with head of bed elevated at all times. Progress note dated 04/25/2018 73-year-old male seen in consultation at couple days ago with an episode of tracheobronchitis. The patient does have a history of chronically elevated right hemidiaphragm, and also has a history of aspiration pneumonia multiple myeloma vocal cord paralysis COPD CVA GERD rheumatoid arthritis chronic dysphagia Phillips's esophagus and a neurodegenerative disease which is currently being evaluated at the [facility]. The patient continues to be improved each day. Less and less in the way of secretions or any other pulmonary complaints for that matter. Slept well last night. We do recommend that of the bed elevated at 45 at all times. The patient's white count is 5.5 hemoglobin 11.8 hematocrit 35.9 and platelet count is normal. Sodium 124 potassium 4.5 chloride 85 CO2 35 BUN 13 and creatinine 0.39. Sputum showing 2 different gram-negative bacilli, they have yet to be identified. Blood cultures were negative. On 04/26/2018 patient seen in follow-up on medical surgical floor. He is alert and awake, in no acute distress, pulse ox of 2 L per nasal cannula is 94%. Sputum cultures are positive for 2 different gram-negative bacilli organisms, and the final culture is pending, in the meanwhile patient has no ongoing fever or chills. Patient has no occasional cough with production of some white phlegm , which is stable. Patient is having some diarrhea. C. diff was negative. Today's serum sodium is 123, nephrology is following. No neurological deficits , altered mentation. Cortisol was checked, and it is low at 3, TSH is within normal limits. he is currently on oral Ceftin year, will await the results the final sputum cultures. On 04/27/2018 patient seen in follow-up in medical surgical floor. Still has no occasional cough, lung sounds are essentially clear, she is afebrile, currently on 2 L per nasal cannula, his pulse ox is 94%. Serum sodium is up to 124, patient is on infusion of 0.9 normal saline at a rate of 50 ML per hour, clinically patient is not having any alteration of mental status, no confusion, no paresthesias. His diarrhea has improved. No ongoing fever or chills. He is tolerating his tube feedings. They organisms in his sputum cultures are yet to be identified, and patient is on oral Ceftin. Service is following. Overall patient reports feeling better, dissipate discharge home soon. Objective - Vital Signs Vital signs: Vital Signs Temp 97.4 F L 04/27/18 12:32 Pulse 71 04/27/18 13:49 Resp 20 04/27/18 12:32 BP 110/66 04/27/18 12:32 Pulse Ox 94 L 04/27/18 12:32 Intake & Output 04/26/18 04/27/18 04/27/18 18:59 06:59 18:59 Intake Total 696 296 7059 Balance 020 329 8127 Weight 67.132 kg Intake: Intake, IV Titration 825 400 Amount Sodium Chloride 0.9% 1, 825 400 000 ml @ 50 mls/hr IV . Q20H [facility] Rx#:[id number] Tube Feeding 480 948 Other: Voiding Method Toilet Toilet # Voids 2 - Exam GENERAL EXAM: Alert, pleasant, cachectic 73-year-old white male, comfortable in no apparent distress. Patient has muffled garbled voice due to his history of vocal cord paralysis HEAD: Normocephalic/atraumatic. EYES: Normal reaction of pupils, equal size. Conjunctiva pink, sclera white. NOSE: Clear with pink turbinates. THROAT: No erythema or exudates. NECK: No masses, no JVD, no thyroid enlargement, no adenopathy. CHEST: No chest wall deformity. Symmetrical expansion. LUNGS: Equal air entry with no crackles, wheeze, rhonchi or dullness. CVS: Regular rate and rhythm, normal S1 and S2, no gallops, no murmurs, no rubs ABDOMEN: Soft, nontender. No hepatosplenomegaly, normal bowel sounds, no guarding or rigidity. Patient has a PEG tube in the left upper quadrant, and patient receives bolus tube feedings 2 cans 3 times daily. EXTREMITIES: No clubbing, no edema, no cyanosis, 2+ pulses and upper and lower extremities. MUSCULOSKELETAL: Muscle strength and tone normal. SPINE: No scoliosis or deformity SKIN: No rashes CENTRAL NERVOUS SYSTEM: Alert and oriented -3. No focal deficits, tone is normal in all 4 extremities. PSYCHIATRIC: Alert and oriented -3. Appropriate affect. Intact judgment and insight. - Labs CBC & Chem 7: 04/26/18 07:27 04/27/18 12:35 Labs: Abnormal Lab Results - Last 24 Hours (Table) 04/26/18 04/27/18 04/27/18 Range/Units 20:00 01:27 07:26 Sodium 123 L 122 L 124 L (137-145) mmol/L Chloride 84 L 85 L (98-107) mmol/L Carbon Dioxide 36 H (22-30) mmol/L Creatinine 0.41 L 0.45 L (0.66-1.25) mg/dL 04/27/18 Range/Units 12:35 Sodium 124 L (137-145) mmol/L Chloride (98-107) mmol/L Carbon Dioxide (22-30) mmol/L Creatinine (0.66-1.25) mg/dL Microbiology - Last 24 Hours (Table) 04/22/18 10:55 Blood Culture - Preliminary Blood No Growth after 120 hours Assessment and Plan Plan: Assessment: Cough and shortness of breath, likely reflecting a episode of tracheobronchitis rather than perry pneumonia. Two different gram-negative bacilli in sputum, yet to be identified. Chronically elevated right hemidiaphragm Bibasilar atelectasis Recent episode of aspiration pneumonia requiring bronchoscopy and BAL, samples negative Hyponatremia History of multiple myeloma Vocal cord paralysis History of COPD History of CVA History of GERD History of rheumatoid arthritis History of chronic dysphagia History of Phillips's esophagus Plan: Continue current antibiotic coverage, still awaiting the results of the final sputum cultures. Clinically patient is improving, less congested, less short of breath. Sodium is improving, no neurological symptoms, no altered mentation , no seizures. We'll continue the Medrol Dosepak, nebulized bronchodilators. I performed a history & physical examination of the patient and discussed their management with my nurse practitioner, Carol Key. I reviewed the nurse practitioner's note and agree with the documented findings and plan of care. Lung sounds are positive for clear breath sounds. The findings and the impression was discussed with the patient. I attest to the documentation by the nurse practitioner. Time with Patient: Less than 30
[2018-04-27] MEDS ORDERED: FUROSEMIDE 10 MG/ML 2 ML VIAL IV STA (16:59)
[2018-04-27] MEDS ORDERED: FUROSEMIDE 20 MG TAB PO STA (17:08)
[2018-04-27] MEDS: SODIUM CHLORIDE 0.9% 1,000 ML IV SCH ×2 (17:37→18:27)
[2018-04-27] MEDS: TAMSULOSIN 0.4 MG CAP.ER.24H PO SCH (20:56)
[2018-04-27] MEDS: MELATONIN 5 MG TABLET PEG/G-TUBE SCH (20:56)
[2018-04-27 21:40] LABS: Anion Gap 7 mmol/L; Blood Urea Nitrogen 21 mg/dL (9-20); Calcium 8.6 mg/dL (8.4-10.2); Carbon Dioxide 34 mmol/L (22-30); Chloride 85 mmol/L (98-107); Glucose 106 mg/dL (74-99); Potassium 4.6 mmol/L (3.5-5.1); Sodium 126 mmol/L (137-145)
--- NOTE | 2018-04-27 21:53 | PN ---
PROGRESS NOTE Patient is seen for followup for hyponatremia. He was started on a saline at 50 mL/hour. I did give him a small dose of Lasix last night. Sodium went up to 123 and this morning it was at 124 mEq/L. Overall patient denies any significant complaints. He is not receiving any significant amount of free water through his tube feeding. TSH was not high; however, serum cortisol level was on the lower side. On examination today, blood pressure is 121/80, heart rate 72 per minute. He is afebrile. EXAMINATION OF THE HEART: S1, S2. EXAMINATION OF LUNGS: Bilateral breath sounds are heard. ABDOMEN: Soft, non-tender. PEG tube is in place. Examination of lower extremities shows no evidence of edema. [employer] exam is grossly intact. Labs reveal sodium of 124 today, potassium 4.7, BUN 17, serum creatinine 0.45. Serum cortisol was low at 3. TSH was 0.734. ASSESSMENT: 1. Hyponatremia, currently euvolemic with some improvement with saline and Lasix. Urine osmolality was high, suggestive of underlying SIADH. However, since the patient's blood pressure was low when he first came in, there was concern about hypovolemia. I will increase the saline to 75 mL/hour and we will repeat another small dose of Lasix. If his sodium does not improve significantly, I will start him on tolvaptan. Patient should continue with the fluid restriction. 2. Pneumonia with sputum culture growing Gram-negative bacilli. 3. History of vocal cord paralysis. 4. History of Phillips's esophagus. 5. Hypertension. PLAN: Increase saline to 75 mL/hour, 20 mg of Lasix p.o. x1, and if the serum sodium level does not improve significantly, I will start him on tolvaptan. Continue with fluid restriction and avoid a lot of free water down the feeding tube. The cortisol level is low because of patient being on Solu-Medrol. I will avoid sodium chloride tabs, given his elevated blood pressure readings previously. MMODL / IJN: [id number] /
[2018-04-28] MEDS: SODIUM CHLORIDE 0.9% 1,000 ML IV SCH (08:03)
[2018-04-28] MEDS: guaiFENesin SYRUP 100MG/5ML 200 MG/10 ML CUP PO SCH ×4 (08:47→21:32)
[2018-04-28] MEDS: PRAZOSIN 1 MG CAP PEG/G-TUBE SCH (08:48)
[2018-04-28] MEDS: ASPIRIN 81 MG PEG/G-TUBE SCH (08:48)
[2018-04-28] MEDS: MULTIVITAMINS, THERA 1 EACH TAB PEG/G-TUBE SCH (08:48)
[2018-04-28] MEDS: METOPROLOL TARTRATE 12.5 MG TAB PEG/G-TUBE SCH (08:48)
[2018-04-28] MEDS: PANTOPRAZOLE SODIUM 40 MG GRANULE PKT PEG/G-TUBE SCH (08:48)
[2018-04-28] MEDS: methylPREDNISolone 4 MG TAB TAPER PO SCH (08:48)
[2018-04-28] MEDS: LORATADINE-PSEUDOEPH 5-120 MG 1 EACH TAB.ER.12H PO SCH ×2 (08:49→21:20)
[2018-04-28] MEDS: HEPARIN SODIUM,PORCINE 5,000 UNIT/ML 1 ML VIAL SQ SCH ×2 (08:49→21:20)
[2018-04-28] MEDS: CEFDINIR ORAL SUSP 1,500 MG/60 ML BOTTLE PEG/G-TUBE SCH ×2 (08:49→21:20)
[2018-04-28] MEDS: IPRATROPIUM-ALBUTEROL 3 ML NEB INHALATION SCH ×4 (09:12→20:38)
[2018-04-28 10:20] LABS: Anion Gap 7 mmol/L; Blood Urea Nitrogen 14 mg/dL (9-20); Calcium 8.4 mg/dL (8.4-10.2); Carbon Dioxide 34 mmol/L (22-30); Chloride 87 mmol/L (98-107); Glucose 96 mg/dL (74-99); Potassium 4.3 mmol/L (3.5-5.1); Sodium 128 mmol/L (137-145)
[2018-04-28 11:25] LABS: Basophils % (A) 0 %; Eosinophils % (A) 1 %; HCT 36.1 % (39.0-53.0); HGB 12.1 gm/dL (13.0-17.5); Lymphocytes % (A) 13 %; MCH 34.5 pg (25.0-35.0); MCHC 33.5 g/dL (31.0-37.0); MCV 102.9 fL (80.0-100.0); Macrocytosis Slight; Mean Platelet Volume 8.7; Monocytes # (A) 0.2 k/uL (0-1.0); Monocytes % (A) 3 %; Neutrophils # (A) 6.1 k/uL (1.3-7.7); Neutrophils % (A) 83 %; Platelet Count 227 k/uL (150-450); RBC 3.51 m/uL (4.30-5.90); RDW 13.2 % (11.5-15.5); WBC 7.4 k/uL (3.8-10.6)
[2018-04-28] MEDS: BACITRACIN 500 UNIT/GM OINT 28.4 GM TUBE TOPICAL SCH (12:41)
--- NOTE | 2018-04-28 14:27 | P.PN ---
Subjective Progress Note Date: 04/28/18 Principal diagnosis: Acute tracheobronchitis. 73-year-old male who we thought we saw him yesterday likely had an episode of tracheobronchitis rather than perry pneumonia. The patient does have a history of chronically elevated right hemidiaphragm by basilar atelectasis recent episode of aspiration pneumonia requiring bronchoscopy/BAL, multiple myeloma, vocal cord paralysis, COPD, CVA, GERD, rheumatoid arthritis, chronic dysphagia, Phillips's esophagus, and possibly a neurodegenerative disease which is being evaluated and worked up at [facility]. Currently, the patient is doing reasonably well. Apparently last night he had loss of phlegm and secretions. Sometimes is difficult for him to get it out. He clinically looks relatively well though. His chest x-ray showed a chronically elevated right hemidiaphragm and some right basilar atelectasis. Labs from today show a white count of 4.8 hemoglobin 11.6 hematocrit 35.6 and a normal platelet count. Sodium 126, potassium 4.4 chloride is 89 CO2 34. BUN and creatinine were normal. Sputum sample showing gram-negative bacilli yet to be identified. Blood cultures were negative. Clinically, the patient looks reasonably well. We did recommend aspiration precautions with head of bed elevated at all times. On 04/26/2018 patient seen in follow-up on medical surgical floor. He is alert and awake, in no acute distress, pulse ox of 2 L per nasal cannula is 94%. Sputum cultures are positive for 2 different gram-negative bacilli organisms, and the final culture is pending, in the meanwhile patient has no ongoing fever or chills. Patient has no occasional cough with production of some white phlegm , which is stable. Patient is having some diarrhea. C. diff was negative. Today's serum sodium is 123, nephrology is following. No neurological deficits , altered mentation. Cortisol was checked, and it is low at 3, TSH is within normal limits. he is currently on oral Ceftin year, will await the results the final sputum cultures. On 04/27/2018 patient seen in follow-up in medical surgical floor. Still has no occasional cough, lung sounds are essentially clear, she is afebrile, currently on 2 L per nasal cannula, his pulse ox is 94%. Serum sodium is up to 124, patient is on infusion of 0.9 normal saline at a rate of 50 ML per hour, clinically patient is not having any alteration of mental status, no confusion, no paresthesias. His diarrhea has improved. No ongoing fever or chills. He is tolerating his tube feedings. They organisms in his sputum cultures are yet to be identified, and patient is on oral Ceftin. Service is following. Overall patient reports feeling better, dissipate discharge home soon. The patient is seen again today 04/28/2018 in follow-up on the regular medical floor. He is currently resting quite comfortably in bed. He denies any worsening shortness of breath, cough or congestion. He was anxious to go home however he still has hyponatremia current sodium 128. White count 7.5. Hemoglobin 12.1. Creatinine 0.45. Nephrology is correcting his sodium. Objective - Vital Signs Vital signs: Vital Signs Temp 96.7 F L 04/28/18 14:01 Pulse 75 04/28/18 14:01 Resp 20 04/28/18 14:01 BP 125/75 04/28/18 14:01 Pulse Ox 96 04/28/18 14:01 Intake & Output 04/27/18 04/28/18 04/28/18 18:59 06:59 18:59 Intake Total 1348 Balance 1348 Weight 67.132 kg Intake: Intake, IV Titration 400 Amount Sodium Chloride 0.9% 1, 400 000 ml @ 50 mls/hr IV . Q20H [facility] Rx#:[id number] Tube Feeding 948 Other: Voiding Method Toilet Toilet # Voids 3 # Bowel Movements 1 - Exam GENERAL EXAM: Alert, pleasant, cachectic 73-year-old white male, comfortable in no apparent distress. Patient has muffled garbled voice due to his history of vocal cord paralysis HEAD: Normocephalic/atraumatic. EYES: Normal reaction of pupils, equal size. Conjunctiva pink, sclera white. NOSE: Clear with pink turbinates. THROAT: No erythema or exudates. NECK: No masses, no JVD, no thyroid enlargement, no adenopathy. CHEST: No chest wall deformity. Symmetrical expansion. LUNGS: Equal air entry with no crackles, wheeze, rhonchi or dullness. CVS: Regular rate and rhythm, normal S1 and S2, no gallops, no murmurs, no rubs ABDOMEN: Soft, nontender. No hepatosplenomegaly, normal bowel sounds, no guarding or rigidity. Patient has a PEG tube in the left upper quadrant, and patient receives bolus tube feedings 2 cans 3 times daily. EXTREMITIES: No clubbing, no edema, no cyanosis, 2+ pulses and upper and lower extremities. MUSCULOSKELETAL: Muscle strength and tone normal. SPINE: No scoliosis or deformity SKIN: No rashes CENTRAL NERVOUS SYSTEM: Alert and oriented -3. No focal deficits, tone is normal in all 4 extremities. PSYCHIATRIC: Alert and oriented -3. Appropriate affect. Intact judgment and insight. - Labs CBC & Chem 7: 04/28/18 09:55 04/28/18 09:55 Labs: Abnormal Lab Results - Last 24 Hours (Table) 04/27/18 04/28/18 04/28/18 Range/Units 21:10 09:55 09:55 RBC 3.51 L (4.30-5.90) m/uL Hgb 12.1 L (13.0-17.5) gm/dL Hct 36.1 L (39.0-53.0) % MCV 102.9 H (80.0-100.0) fL Sodium 126 L 128 L (137-145) mmol/L Chloride 85 L 87 L (98-107) mmol/L Carbon Dioxide 34 H 34 H (22-30) mmol/L BUN 21 H (9-20) mg/dL Creatinine 0.43 L 0.45 L (0.66-1.25) mg/dL Glucose 106 H (74-99) mg/dL Microbiology - Last 24 Hours (Table) 04/22/18 10:55 Blood Culture - Final Blood No Growth after 144 hours Assessment and Plan Assessment: Assessment: Acute tracheobronchitis rather than perry pneumonia. Two different gram-negative bacilli in sputum, yet to be identified. Chronically elevated right hemidiaphragm Bibasilar atelectasis Recent episode of aspiration pneumonia requiring bronchoscopy and BAL, samples negative Hyponatremia History of multiple myeloma Vocal cord paralysis History of COPD History of CVA History of GERD History of rheumatoid arthritis History of chronic dysphagia History of Phillips's esophagus Plan: The patient was seen and evaluated by Dr. Magdaleno. He is stable from the pulmonary standpoint and could be discharged home once cleared by nephrology. I, the cosigning physician, performed a history & physical examination of the patient. Lungs sounds are clear. Maintaining good O2 saturations in the 90s on 2 L/m per nasal cannula I discussed the assessment and plan of care with my nurse practitioner, Kisha Suazo. I attest to the above note as dictated by her.
--- NOTE | 2018-04-28 16:22 | P.PN ---
Subjective Progress Note Date: 04/28/18 Progress note being dictated for Dr. Edge. Interval history:73-year-old male who we thought we saw him yesterday likely had an episode of tracheobronchitis rather than perry pneumonia. The patient does have a history of chronically elevated right hemidiaphragm by basilar atelectasis recent episode of aspiration pneumonia requiring bronchoscopy/BAL, multiple myeloma, vocal cord paralysis, COPD, CVA, GERD, rheumatoid arthritis, chronic dysphagia, Phillips's esophagus, and possibly a neurodegenerative disease which is being evaluated and worked up at [facility]. Currently, the patient is doing reasonably well. Apparently last night he had loss of phlegm and secretions. Sometimes is difficult for him to get it out. He clinically looks relatively well though. His chest x-ray showed a chronically elevated right hemidiaphragm and some right basilar atelectasis. Labs from today show a white count of 4.8 hemoglobin 11.6 hematocrit 35.6 and a normal platelet count. Sodium 126, potassium 4.4 chloride is 89 CO2 34. BUN and creatinine were normal. Sputum sample showing gram-negative bacilli yet to be identified. Blood cultures were negative. Clinically, the patient looks reasonably well. We did recommend aspiration precautions with head of bed elevated at all times. 04/26/2018 Patient was lying in bed not in distress comfortable. No more dizziness. His diarrhea is resolving as per patient yesterday have 2-3 times bowel movement and there were also amounts and the mental between solids and liquids. He still have little cuff right lung but is better. And patient thinks his breathing is better than when he came in 04/27/2018 patient sterile feels better, with no more dizziness, his breathing and diarrhea are improving. No pain. Some cough with white phlegm but is stable. However patient's sodium still 124 and is on IV fluids as per nephrology recommendations were following the case closely 04/28/2018 maintained on IV fluid hydration, sodium continues to improve currently 128. Maintained on IV antibiotics, steroids, nebulized bronchodilators. Denies chest pain, palpitations or increased shortness of breath. Eagerl for discharge. Objective - Vital Signs Vital signs: Vital Signs Temp 96.7 F L 04/28/18 14:01 Pulse 75 04/28/18 14:01 Resp 20 04/28/18 14:01 BP 125/75 04/28/18 14:01 Pulse Ox 96 04/28/18 14:01 Intake & Output 04/27/18 04/28/18 04/28/18 18:59 06:59 18:59 Intake Total 1348 600 Output Total 3 Balance 1348 597 Weight 67.132 kg Intake: Intake, IV Titration 400 600 Amount Sodium Chloride 0.9% 1, 400 000 ml @ 50 mls/hr IV . Q20H [facility] Rx#:[id number] Sodium Chloride 0.9% 1, 600 000 ml @ 75 mls/hr IV . [id number] [facility] Rx#:[id number] Tube Feeding 948 Output: Urine 3 Other: Voiding Method Toilet Toilet # Voids 3 # Bowel Movements 1 - Exam -GENERAL: The patient is sitting up at side of bed, alert and oriented x3, not in any acute distress. He looks thin and emaciated. Patient with slurred speech, which is his baseline from vocal cord paralysis probably HEENT: Pupils are round and equally reacting to light. EOMI. No scleral icterus. No conjunctival pallor. Normocephalic, atraumatic. No pharyngeal erythema. No thyromegaly. CARDIOVASCULAR: S1 and S2 present. No murmurs, rubs, or gallops. -PULMONARY: Chest is clear to auscultation, no wheezing, bilateral basal crepitation and harsh breath sounds -ABDOMEN: Soft, nontender, nondistended, normoactive bowel sounds. No palpable organomegaly. PEG tube is in a Place with no surrounding inflammation or cellulitis MUSCULOSKELETAL: No joint swelling or deformity. EXTREMITIES: No cyanosis, clubbing, or pedal edema. NEUROLOGICAL: Gross neurological examination did not reveal any focal deficits. SKIN: No rashes. Microbiology 04/22/18 10:55 Blood Blood Culture - Final No Growth after 144 hours 04/23/18 09:26 Sputum Gram Stain - Preliminary 04/23/18 09:26 Sputum Sputum Culture - Preliminary Gram Neg Bacilli Gram Neg Bacilli#2 - Labs CBC & Chem 7: 04/28/18 09:55 04/28/18 09:55 Labs: Abnormal Lab Results - Last 24 Hours (Table) 04/27/18 04/28/18 04/28/18 Range/Units 21:10 09:55 09:55 RBC 3.51 L (4.30-5.90) m/uL Hgb 12.1 L (13.0-17.5) gm/dL Hct 36.1 L (39.0-53.0) % MCV 102.9 H (80.0-100.0) fL Sodium 126 L 128 L (137-145) mmol/L Chloride 85 L 87 L (98-107) mmol/L Carbon Dioxide 34 H 34 H (22-30) mmol/L BUN 21 H (9-20) mg/dL Creatinine 0.43 L 0.45 L (0.66-1.25) mg/dL Glucose 106 H (74-99) mg/dL Microbiology - Last 24 Hours (Table) 04/22/18 10:55 Blood Culture - Final Blood No Growth after 144 hours Assessment and Plan Assessment: Acute tracheobronchitis rather than bilateral pneumonia Hyponatremia, possible SIADH Loose bowel movement for about a week, C. diff: Negative Hypotension, resolved Essential hypertension History of neuromuscular disorder History of vocal cord paralysis with aspiration precautions History of Phillips's esophagus. COPD, not in acute exacerbation History of CVA/TIA Plan: Continue on current medication regime ,monitoring and symptomatic treatment. Continue on antibiotics, steroids. Maintain fluid restrictions. Tolvatan as per nephrology. Sodium improving, up to 128. IV fluids have been discontinued with repeat sodium level at 8 PM. Follow closely with nephrology. Discharge planning in progress. The impression and plan of care has been dictated as directed. : I performed a history and examination of this patient, discussed the same with the dictator. I agree with the dictator's note ,documented as a scribe. Any additional findings or plans will be noted.
--- NOTE | 2018-04-28 19:36 | PN ---
PROGRESS NOTE Patient is seen for followup for hyponatremia. He is currently maintained on 75 mL an hour of normal saline. Patient received Lasix yesterday. His urine osmolality was elevated suggesting underlying SIADH. I will discontinue the normal saline. There was concern for hypovolemic hyponatremia initially as patient was also hypotensive when he 1st came in. The patient wants to go home. However, I feel he should stay 1 more day so that we can decide if he needs a small dose of tolvaptan. The patient is maintained on fluid restriction. He is maintained on tube feedings. PHYSICAL EXAMINATION: Blood pressure was 125/75, heart rate 75 per minute. He is afebrile. Examination of the heart S1, S2. Examination of the lungs bilateral breath sounds are heard. Abdomen is soft, nontender. Examination of lower extremities shows no significant edema. STAFF SCIENTIST exam is grossly intact. LAB: Show sodium 128, potassium 4.3, serum creatinine 0.45, hemoglobin 12.1. ASSESSMENT: 1. Hyponatremia initially hypovolemic, however, serum sodium worsened with saline. Therefore it was discontinued. Urine osmolality was also high suggesting a component of SIADH. Currently, patient is maintained on normal saline. He has received couple of doses of Lasix. His serum sodium has come up. I will discontinue the saline. We will repeat another sodium this evening. I was considering tolvaptan if his sodium did not improve. However, since he is up to 128, we can hold off on that unless his sodium drops this evening. The patient can be discharged tomorrow and we will decide if he needs tolvaptan depending on his repeat sodium levels. He should continue with oral fluid restriction. Continue with the tube feedings. I have asked him to avoid high salt intake as his blood pressure has been on the high side occasionally. The serum cortisol was low, but that was inaccurate as patient is on Solu-Medrol. His TSH was within normal range. 2. History of vocal cord paralysis. 3. History of Phillips's esophagus. 4. Pneumonia with sputum culture growing gram-negative bacilli, maintained on antibiotics in the form of Omnicef. MMODL / IJN: [id number] /
[2018-04-28] MEDS: MELATONIN 5 MG TABLET PEG/G-TUBE SCH (21:20)
[2018-04-28] MEDS: TAMSULOSIN 0.4 MG CAP.ER.24H PO SCH (21:20)
[2018-04-28] MEDS ORDERED: TOLVAPTAN 15 MG 1/2 TABLET PO ONE (21:46)
[2018-04-29] MEDS: IPRATROPIUM-ALBUTEROL 3 ML NEB INHALATION SCH ×2 (07:09→13:50)
[2018-04-29] MEDS: MULTIVITAMINS, THERA 1 EACH TAB PEG/G-TUBE SCH (08:25)
[2018-04-29] MEDS: METOPROLOL TARTRATE 12.5 MG TAB PEG/G-TUBE SCH (08:25)
[2018-04-29] MEDS: PANTOPRAZOLE SODIUM 40 MG GRANULE PKT PEG/G-TUBE SCH (08:25)
[2018-04-29] MEDS: PRAZOSIN 1 MG CAP PEG/G-TUBE SCH (08:25)
[2018-04-29] MEDS: HEPARIN SODIUM,PORCINE 5,000 UNIT/ML 1 ML VIAL SQ SCH (08:26)
[2018-04-29] MEDS: CEFDINIR ORAL SUSP 1,500 MG/60 ML BOTTLE PEG/G-TUBE SCH ×2 (08:26→10:29)
[2018-04-29] MEDS: ASPIRIN 81 MG PEG/G-TUBE SCH (08:26)
[2018-04-29] MEDS: LORATADINE-PSEUDOEPH 5-120 MG 1 EACH TAB.ER.12H PO SCH (08:26)
[2018-04-29 08:50] LABS: Anion Gap 5 mmol/L; Blood Urea Nitrogen 13 mg/dL (9-20); Carbon Dioxide 38 mmol/L (22-30); Chloride 92 mmol/L (98-107); Glucose 87 mg/dL (74-99); Potassium 5.1 mmol/L (3.5-5.1); Sodium 135 mmol/L (137-145)
[2018-04-29] MEDS: BACITRACIN 500 UNIT/GM OINT 28.4 GM TUBE TOPICAL SCH (10:31)
[2018-04-29] MEDS: guaiFENesin SYRUP 100MG/5ML 200 MG/10 ML CUP PO SCH (10:32)
--- NOTE | 2018-04-29 11:28 | P.DS ---
Providers Date of admission: 04/22/18 13:46 Expected date of discharge: 04/29/18 Attending physician: MD Dr. Minesh Dinero Consults: 04/22/18 14:18 Consult Physician Routine Consulting Provider: Siddharth Arrington Consult Reason/Comments: h/o MM Do you want consulting provider notified?: Yes 04/22/18 14:21 Consult Physician Urgent Consulting Provider: Hussein Mendez Consult Reason/Comments: recurrent pna Do you want consulting provider notified?: Yes 04/22/18 22:32 Consult Physician Routine Consulting Provider: Jovani Sahu Consult Reason/Comments: bilateral pna Do you want consulting provider notified?: Yes 04/25/18 17:43 Consult Physician Routine Consulting Provider: Rizwan John Consult Reason/Comments: drop in sodium Do you want consulting provider notified?: Yes Primary care physician: Harish Alvarado [facility] Course: Final Diagnoses: Acute tracheobronchitis rather than bilateral pneumonia Hyponatremia, possible SIADH Loose bowel movement for about a week, C. diff: Negative Hypotension, resolved Essential hypertension History of neuromuscular disorder History of vocal cord paralysis with aspiration precautions History of Phillips's esophagus. COPD, not in acute exacerbation History of CVA/TIA Hospital course:73-year-old male who we thought we saw him yesterday likely had an episode of tracheobronchitis rather than perry pneumonia. The patient does have a history of chronically elevated right hemidiaphragm by basilar atelectasis recent episode of aspiration pneumonia requiring bronchoscopy/BAL, multiple myeloma, vocal cord paralysis, COPD, CVA, GERD, rheumatoid arthritis, chronic dysphagia, Phillips's esophagus, and possibly a neurodegenerative disease which is being evaluated and worked up at [facility]. Currently, the patient is doing reasonably well. Apparently last night he had loss of phlegm and secretions. Sometimes is difficult for him to get it out. He clinically looks relatively well though. His chest x-ray showed a chronically elevated right hemidiaphragm and some right basilar atelectasis. Labs from today show a white count of 4.8 hemoglobin 11.6 hematocrit 35.6 and a normal platelet count. Sodium 126, potassium 4.4 chloride is 89 CO2 34. BUN and creatinine were normal. Sputum sample showing gram-negative bacilli yet to be identified. Blood cultures were negative. Clinically, the patient looks reasonably well. We did recommend aspiration precautions with head of bed elevated at all times. 04/26/2018 Patient was lying in bed not in distress comfortable. No more dizziness. His diarrhea is resolving as per patient yesterday have 2-3 times bowel movement and there were also amounts and the mental between solids and liquids. He still have little cuff right lung but is better. And patient thinks his breathing is better than when he came in 04/27/2018 patient sterile feels better, with no more dizziness, his breathing and diarrhea are improving. No pain. Some cough with white phlegm but is stable. However patient's sodium still 124 and is on IV fluids as per nephrology recommendations were following the case closely 04/28/2018 maintained on IV fluid hydration, sodium continues to improve currently 128. Maintained on IV antibiotics, steroids, nebulized bronchodilators. Denies chest pain, palpitations or increased shortness of breath. Eager for discharge. Fluid restrictions maintained, IV fluids discontinued. Received a dose of Talvaptan.Sodium up to 135 this morning. Patient will be discharged home today in a stable condition with guarded prognosis pending nephrology's final DC recommendations. - Exam -GENERAL: The patient is sitting up at side of bed, alert and oriented x3, not in any acute distress. CARDIOVASCULAR: S1 and S2 present. No murmurs, rubs, or gallops. -PULMONARY: Chest is clear to auscultation, no wheezing, bilateral basal crepitation and harsh breath sounds -ABDOMEN: Soft, nontender, nondistended, normoactive bowel sounds. No palpable organomegaly. PEG tube is in a Place with no surrounding inflammation or cellulitis NEUROLOGICAL: Gross neurological examination did not reveal any focal deficits. Microbiology 04/22/18 10:55 Blood Blood Culture - Final No Growth after 144 hours 04/23/18 09:26 Sputum Gram Stain - Preliminary 04/23/18 09:26 Sputum Sputum Culture - Preliminary Gram Neg Bacilli Gram Neg Bacilli#2 The impression and plan of care has been dictated as directed. : I performed a history and examination of this patient, discussed the same with the dictator. I agree with the dictator's note ,documented as a scribe. Any additional findings or plans will be noted. Time taken: 35 minutes Patient Condition at Discharge: Stable Plan - Discharge Summary Discharge Rx Participant: Yes New Discharge Prescriptions: New Cefdinir Oral Susp [Omnicef Oral Susp] 15 ml PO Q12H #90 ml Continue Omeprazole 20 mg PEG/G-TUBE BID Loratadine-Pseudoeph 10-240 mg [Claritin-D 24 Hour] 1 tab PEG/G-TUBE DAILY Ipratropium/Albuterol Sulfate [Combivent Respimat Inhaler] 1 puff INHALATION RT-QID Multivit-Min/FA/Lycopen/Lutein [Centrum Silver Men Tablet] 1 tab PEG/G-TUBE DAILY Metoprolol Tartrate [Lopressor] 12.5 mg PEG/G-TUBE DAILY Aspirin EC [Ecotrin Low Dose] 81 mg PEG/G-TUBE DAILY Albuterol Sulfate [Proventil Hfa] 2 puff INHALATION RT-QID PRN PRN Reason: Shortness Of Breath Zolpidem [Ambien] 10 mg PEG/G-TUBE HS PRN PRN Reason: Insomnia Prazosin [Minipress] 1 mg PEG/G-TUBE DAILY Melatonin 5 mg PEG/G-TUBE HS Tamsulosin HCl [Flomax] 1 tablet PEG/G-TUBE DAILY Acetylcysteine [Mucomyst] 4 ml PO DAILY PRN PRN Reason: Cough guaiFENesin [Mucinex] 600 mg PO BID Discharge Medication List Omeprazole 20 mg PEG/G-TUBE BID 07/31/14 [History] Ipratropium/Albuterol Sulfate [Combivent Respimat Inhaler] 1 puff INHALATION RT- QID 05/01/17 [History] Loratadine-Pseudoeph 10-240 mg [Claritin-D 24 Hour] 1 tab PEG/G-TUBE DAILY 05/01 [History] Multivit-Min/FA/Lycopen/Lutein [Centrum Silver Men Tablet] 1 tab PEG/G-TUBE DAILY 08/09/17 [History] Albuterol Sulfate [Proventil Hfa] 2 puff INHALATION RT-QID PRN 01/28/18 [History ] Aspirin EC [Ecotrin Low Dose] 81 mg PEG/G-TUBE DAILY 01/28/18 [History] Metoprolol Tartrate [Lopressor] 12.5 mg PEG/G-TUBE DAILY 01/28/18 [History] Melatonin 5 mg PEG/G-TUBE HS 04/13/18 [History] Prazosin [Minipress] 1 mg PEG/G-TUBE DAILY 04/13/18 [History] Zolpidem [Ambien] 10 mg PEG/G-TUBE HS PRN 04/13/18 [History] Tamsulosin HCl [Flomax] 1 tablet PEG/G-TUBE DAILY 04/19/18 [History] Acetylcysteine [Mucomyst] 4 ml PO DAILY PRN 04/22/18 [History] guaiFENesin [Mucinex] 600 mg PO BID 04/23/18 [History] Cefdinir Oral Susp [Omnicef Oral Susp] 15 ml PO Q12H #90 ml 04/26/18 [Rx] Follow up Appointment(s)/Referral(s): Fauzia Guerrero MD [STAFF PHYSICIAN] - 1 Week (office will call patient to schedule appt after they get patient records) Harish Alvarado DO [Primary Care Provider] - 05/03/18 11:30 am Gina Magdaleno MD [STAFF PHYSICIAN] - 05/14/18 10:15 am Ambulatory/Diagnostic Orders: Basic Metabolic Panel [LAB.AMB] Time Frame: 3 Days, Location: None Selected Patient Instructions/Handouts: Methylprednisolone (By mouth), Cefdinir (By mouth) Activity/Diet/Wound Care/Special Instructions: pending Nephrology final dc rec.
--- NOTE | 2018-04-29 12:20 | P.PN ---
Subjective Patient is seen in follow-up for hyponatremia. Sodium level initially improved with normal saline but last night dropped to 127. He received a dose of Samsca 15 mg once. Sodium level up to 135 today. He is maintained on tube feeds via PEG tube. Denies chest pain or shortness of breath. GFR at baseline. Vital signs are stable. General: The patient appeared well nourished and normally developed. HEENT: Head exam is unremarkable. Neck is without jugular venous distension. LUNGS: Lungs are clear to auscultation and percussion. Breath sounds decreased. HEART: Rate and Rhythm are regular. First and second heart sounds normal. No murmurs, rubs or gallops. ABDOMEN: Abdominal exam reveals normal bowel sounds. Non-tender and non- distended. No evidence of peritonitis. EXTREMITITES: No clubbing, cyanosis, or edema. Objective - Vital Signs Vital signs: Vital Signs Temp 97.4 F L 04/29/18 05:00 Pulse 76 04/29/18 07:24 Resp 18 04/29/18 05:00 BP 149/94 04/29/18 05:00 Pulse Ox 98 04/29/18 05:00 Intake & Output 04/28/18 04/29/18 04/29/18 18:59 06:59 18:59 Intake Total 600 45 474 Output Total 3 Balance 597 45 474 Weight 67.132 kg Intake: Intake, IV Titration 600 Amount Sodium Chloride 0.9% 1, 600 000 ml @ 75 mls/hr IV . [id number] [facility] Rx#:[id number] Oral 45 Tube Feeding 474 Output: Urine 3 Other: Voiding Method Toilet Toilet Toilet # Voids 2 - Labs CBC & Chem 7: 04/28/18 09:55 04/29/18 07:10 Labs: Abnormal Lab Results - Last 24 Hours (Table) 04/28/18 04/29/18 Range/Units 19:56 07:10 Sodium 127 L 135 L (137-145) mmol/L Chloride 92 L (98-107) mmol/L Carbon Dioxide 38 H (22-30) mmol/L Creatinine 0.50 L (0.66-1.25) mg/dL Microbiology - Last 24 Hours (Table) 04/22/18 10:55 Blood Culture - Final Blood No Growth after 144 hours Assessment and Plan Plan: Assessment: 1. Hyponatremia. Initially hypovolemic improved with IV hydration. There appears to be a component of SIADH from respiratory infection as well. Status post 1 dose of Samsca last night. Sodium level up to 135 today. 2. History of vocal cord paralysis maintained on tube feeds. 3. Pneumonia with sputum culture positive for gram-negative bacilli. Maintain on antibiotics. Plan: Advised 50-60 oz fluid restriction per day. Add Lasix 20 mg orally once daily. Repeat BMP and magnesium level in 2-3 days postdischarge. Follow up outpatient in the next 1-2 weeks.
[2018-04-29 13:12] VITALS: BP 101/66; PULSE 73; RESP 22; TEMP 97.9
== END 2018-04-29 13:40 | disposition home or self-care (01) | DRG 191 ==
LOC: EC 10:36 → 5MS5E 13:46
PROVIDERS: ADMIT Internal Medicine; ATTEND Internal Medicine
DX: J44.0 Chronic obstructive pulmonary disease with (acute) lower respiratory infection (principal); C90.00 Multiple myeloma not having achieved remission; E22.2 Syndrome of inappropriate secretion of antidiuretic hormone; G12.9 Spinal muscular atrophy, unspecified; J98.11 Atelectasis; J20.9 Acute bronchitis, unspecified; Z87.891 Personal history of nicotine dependence; E86.0 Dehydration; E86.1 Hypovolemia; F41.9 Anxiety disorder, unspecified; G70.9 Myoneural disorder, unspecified; I10 Essential (primary) hypertension; I71.4 Abdominal aortic aneurysm, without rupture; J38.00 Paralysis of vocal cords and larynx, unspecified; K22.70 Barrett's esophagus without dysplasia; K21.0 Gastro-esophageal reflux disease with esophagitis; M06.9 Rheumatoid arthritis, unspecified; Z79.899 Other long term (current) drug therapy; Z80.0 Family history of malignant neoplasm of digestive organs; Z80.1 Family history of malignant neoplasm of trachea, bronchus and lung; Z80.7 Family history of other malignant neoplasms of lymphoid, hematopoietic and related tissues; Z82.49 Family history of ischemic heart disease and other diseases of the circulatory system; Z86.73 Personal history of transient ischemic attack (TIA), and cerebral infarction without residual deficits; Z87.01 Personal history of pneumonia (recurrent); Z93.1 Gastrostomy status; Z99.81 Dependence on supplemental oxygen; D47.2 Monoclonal gammopathy; Z88.1 Allergy status to other antibiotic agents; Z88.0 Allergy status to penicillin; Z88.2 Allergy status to sulfonamides; R13.10 Dysphagia, unspecified; R19.7 Diarrhea, unspecified; J98.6 Disorders of diaphragm; R09.02 Hypoxemia
CPT/HCPCS: 36415; 71046; 80048; 80053; 80202; 81001; 81003; 82533; 82550; 82553; 82570; 83735; 83880; 83935; 84295; 84300; 84443; 84484; 84550; 85025; 85610; 85730; 87040; 87070; 87077; 87186; 87205; 87324; 93005; 94640; 94760; 96361; 96365; 99285

== ENCOUNTER 2018-08-29 17:36 | Emergency (ER) | payer MEDICARE ==
[2018-08-29 17:48] VITALS: TEMP 97.7
[2018-08-29] MEDS ORDERED: DIPH,PERTUS(ACELL)TETVAC-LF 0.5 ML VIAL IM ONE (18:00)
[2018-08-29] MEDS ORDERED: LIDOCAINE 1% INJ 10MG/ML (20 ML MDV) SQ ONE (18:18)
--- NOTE | 2018-08-29 18:18 | XR ---
EXAMINATION TYPE: XR foot complete RT DATE OF EXAM: 08/29/2018 COMPARISON: NONE HISTORY: Pain TECHNIQUE: 3 views FINDINGS: There is narrowing and spurring at the first MP joint. There is extensive hypertrophic spur formation. There is a dorsal dislocation of the IP joint of the big toe. The tarsal bones are intact . The other toes appear intact. IMPRESSION: Posterior dorsal dislocation of the IP joint of the big toe right foot. 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
[2018-08-29] MEDS ORDERED: CEPHALEXIN 500 MG CAP PO STA (18:45)
--- NOTE | 2018-08-29 18:45 | ED ---
General Adult HPI - General Chief complaint: Extremity Injury, Lower Stated complaint: Broken Toe Time Seen by Provider: 08/29/18 17:50 Source: patient, RN notes reviewed, old records reviewed Mode of arrival: wheelchair Limitations: no limitations - History of Present Illness Initial comments: 73-year-old male presents status post slip and fall with right great toe pain and deformity. Patient was in his basic, slipped on wet tile, fell injuring his right great toe. Denies head or neck trauma. Patient does have history of neuromuscular disorder, currently being followed at [facility]. Patient has no other complaints. - Related Data Home Medications Medication Instructions Recorded Confirmed Omeprazole 20 mg PEG/G-TUBE BID 07/31/14 08/29/18 Ipratropium/Albuterol Sulfate 1 puff INHALATION RT-QID 05/01/17 08/29/18 [Combivent Respimat Inhaler] Loratadine-Pseudoeph 10-240 mg 1 tab PEG/G-TUBE DAILY 05/01/17 08/29/18 [Claritin-D 24 Hour] Multivit-Min/FA/Lycopen/Lutein 1 tab PEG/G-TUBE DAILY 08/09/17 08/29/18 [Centrum Silver Men Tablet] Albuterol Sulfate [Proventil Hfa] 2 puff INHALATION RT-QID PRN 01/28/18 08/29/18 Aspirin EC [Ecotrin Low Dose] 81 mg PEG/G-TUBE DAILY 01/28/18 08/29/18 Metoprolol Tartrate [Lopressor] 25 mg PEG/G-TUBE BID 01/28/18 08/29/18 Acetylcysteine [Mucomyst] 4 ml PO DAILY PRN 04/22/18 08/29/18 guaiFENesin [Mucinex] 600 mg PEG/G-TUBE BID 04/23/18 08/29/18 Zolpidem [Ambien] 5 mg PEG/G-TUBE HS PRN 08/29/18 08/29/18 Previous Rx's Medication Instructions Recorded Cephalexin [Keflex] 500 mg PO Q12HR #10 cap 08/29/18 Allergies Allergy/AdvReac Type Severity Reaction Status Date / Time Penicillins Allergy Itching Verified 08/29/18 18:33 piperacillin [From Zosyn] Allergy Itching Verified 08/29/18 18:33 Sulfa (Sulfonamide Allergy Rash/Hives Verified 08/29/18 18:33 Antibiotics) tazobactam [From Zosyn] Allergy Itching Verified 08/29/18 18:33 Review of Systems ROS Statement: Those systems with pertinent positive or pertinent negative responses have been documented in the HPI. ROS Other: All systems not noted in ROS Statement are negative. 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 Gaping esophagus, barretts esophagus. 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 Nasal reduction, PEG tube placement , local cord surgery, Additional Past Anesthesia/Blood Transfusion Reaction / Comment(s): PARALYZED VOCAL CHORDS Past Psychological History: Anxiety Smoking Status: Former smoker Past Alcohol Use History: Occasional Past Drug Use History: None Reported - Past Family History Sister(s) Additional Family Medical History / Comment(s): passed colon CA Brother(s) Additional Family Medical History / Comment(s): sarcidosis Mother Additional Family Medical History / Comment(s): lung CA Son(s) Family Medical History: Hypertension Additional Family Medical History / Comment(s): lymphoma, sarcoidosis General Exam Limitations: no limitations General appearance: alert, in no apparent distress Head exam: Present: atraumatic, normocephalic Eye exam: Present: normal appearance, PERRL ENT exam: Present: normal exam Neck exam: Present: normal inspection. Absent: tenderness, meningismus Respiratory exam: Present: normal lung sounds bilaterally. Absent: respiratory distress, wheezes Cardiovascular Exam: Present: regular rate, normal rhythm GI/Abdominal exam: Present: soft. Absent: distended, tenderness Extremities exam: Present: other (Right foot: Deformity right great toe, laceration, abrasion to the plantar surface, less than 1 cm) Back exam: Present: normal inspection, full ROM Neurological exam: Present: alert, oriented X3, CN II-XII intact. Absent: motor sensory deficit Psychiatric exam: Present: normal affect, normal mood Skin exam: Present: warm, dry, abrasion (Abrasion, laceration to the plantar surface right great toe) Course Vital Signs 08/29/18 17:45 Temperature 97.7 F Pulse Rate 93 Respiratory 18 Rate Blood Pressure 117/81 O2 Sat by Pulse 97 Oximetry - Reevaluation(s) Reevaluation #1: 08/29/18 18:46 Patient has had cefdinir without ALLERGIC reaction Procedures - Orthopedic Joint Reduction Joint #1 Consent Obtained: verbal consent Side: right Joint Reduction Location: toe Analgesia: digital block Local Anesthetic Used: Lidocaine 1% Amount of Anesthetic Used (mLs): 5 Technique Used: traction/counter-traction, direct manipulation Post-Reduction Neuro Exam: intact Post-Reduction Vascular Exam: intact Post Reduction X-Ray Obtained: Yes Post Reduction X-Ray Results: reduced Splint Applied: Yes Patient Tolerated Procedure: well Medical Decision Making - Medical Decision Making 73-year-old male with dislocation right great toe, this is reduced in the emergency department after digital block. Patient tolerates procedure well. There is an abrasion laceration to the plantar surface, this may be secondary to dislocation or from the injury itself. I did not repair is secondary to infection risk. We will start patient on antibiotics, close monitoring for signs of infection. Will follow with primary care physician and return with signs of infection or worsening symptoms. Small plantar laceration is irrigated with 2 L normal saline, clean dressing applied. Placed in postoperative shoe. I discussed case with orthopedics on-call Dr. Hwang, we both agreed that outpatient follow-up is appropriate for this patient, dressing applied in the emergency department, will follow-up in 24-48 hours. Disposition Clinical Impression: Dislocation of great toe, right, open Disposition: HOME SELF-CARE Condition: Good Instructions (If sedation given, give patient instructions): Toe Fracture (ED) Prescriptions: Cephalexin [Keflex] 500 mg PO Q12HR #10 cap Is patient prescribed a controlled substance at d/c from ED?: No Referrals: Harish Alvarado DO [Primary Care Provider] - 1-2 days Randal Hwang MD [Medical Doctor] - 1-2 days Time of Disposition: 18:41
--- NOTE | 2018-08-29 18:53 | XR ---
EXAMINATION TYPE: XR toes RT DATE OF EXAM: 08/29/2018 COMPARISON: Today HISTORY: Postreduction TECHNIQUE: 2 views FINDINGS: There is anatomic reduction of the IP joint of the big toe. I see no fracture line. IMPRESSION: Anatomic reduction.
[2018-08-29 19:36] VITALS: BP 135/93; PULSE 81; RESP 16
== END 2018-08-29 19:35 | disposition home or self-care (01) ==
LOC: EC 17:36
DX: S93.111A Dislocation of interphalangeal joint of right great toe, initial encounter (principal); S91.111A Laceration without foreign body of right great toe without damage to nail, initial encounter; J44.9 Chronic obstructive pulmonary disease, unspecified; K21.9 Gastro-esophageal reflux disease without esophagitis; Z87.39 Personal history of other diseases of the musculoskeletal system and connective tissue; Z86.73 Personal history of transient ischemic attack (TIA), and cerebral infarction without residual deficits; Z87.891 Personal history of nicotine dependence; Z23 Encounter for immunization; Z79.82 Long term (current) use of aspirin; Z79.899 Other long term (current) drug therapy; Z88.0 Allergy status to penicillin; Z88.1 Allergy status to other antibiotic agents; Z88.2 Allergy status to sulfonamides; W01.0XXA Fall on same level from slipping, tripping and stumbling without subsequent striking against object, initial encounter
CPT/HCPCS: 73630; 73660; 90715; 99284; 28660; 90471; J2001

== ENCOUNTER 2018-10-24 22:12 | Inpatient (IN) | payer MEDICARE ==
[2018-10-24] MEDS ORDERED: SODIUM CHLORIDE 0.9% 1,000 ML IV STA (22:23)
[2018-10-24] MEDS ORDERED: metroNIDAZOLE-NS PMX 500 MG in SALINE 1 100ML.BAG IVPB STA (22:34)
[2018-10-24] MEDS ORDERED: DEXAMETHASONE SOD PHOSPHATE 10 MG/ML 1 ML VIAL IV STA (22:34)
[2018-10-24] MEDS ORDERED: IPRATROPIUM-ALBUTEROL 3 ML NEB INHALATION STA (22:34)
[2018-10-24] MEDS ORDERED: cefTRIAXone IN SWFI 1,000 MG/10 ML SYRINGE IVP STA (22:34)
[2018-10-24] MEDS ORDERED: SODIUM CHLORIDE 0.9% 1,000 ML IV ONE (22:44)
--- NOTE | 2018-10-24 22:44 | ED ---
General Adult HPI - General Chief complaint: ENT Stated complaint: Aspiration Time Seen by Provider: 10/24/18 22:17 Source: patient, family, RN notes reviewed, old records reviewed Mode of arrival: ambulatory Limitations: no limitations - History of Present Illness Initial comments: 73-year-old male history of neuromuscular disorder, FOSMN. Patient presents with worsening dyspnea. He had a rash to his PEG tube, had a coughing spell and aspirated. He does have history of COPD. He is not currently on home nebs, does use rescue inhaler. He's had subjective fever and chills. Patient denies chest pain. Denies abdominal pain or current nausea vomiting. No lower extremity swelling. No history of CAD or CHF. - Related Data Home Medications Medication Instructions Recorded Confirmed Omeprazole 20 mg PEG/G-TUBE BID 07/31/14 10/24/18 Ipratropium/Albuterol Sulfate 1 puff INHALATION RT-QID 05/01/17 10/24/18 [Combivent Respimat Inhaler] Loratadine-Pseudoeph 10-240 mg 1 tab PEG/G-TUBE DAILY 05/01/17 10/24/18 [Claritin-D 24 Hour] Albuterol Sulfate [Proventil Hfa] 2 puff INHALATION RT-QID PRN 01/28/18 10/24/18 Aspirin EC [Ecotrin Low Dose] 81 mg PEG/G-TUBE DAILY 01/28/18 10/24/18 guaiFENesin [Mucinex] 600 mg PEG/G-TUBE BID 04/23/18 10/24/18 Zolpidem [Ambien] 5 mg PEG/G-TUBE HS PRN 08/29/18 10/24/18 Fluticasone/Vilanterol [Breo 1 puff INHALATION RT-DAILY 10/24/18 10/24/18 Ellipta 200-25 Mcg INH] Allergies Allergy/AdvReac Type Severity Reaction Status Date / Time Penicillins Allergy Itching Verified 10/24/18 22:54 piperacillin [From Zosyn] Allergy Itching Verified 10/24/18 22:54 Sulfa (Sulfonamide Allergy Rash/Hives Verified 10/24/18 22:54 Antibiotics) tazobactam [From Zosyn] Allergy Itching Verified 10/24/18 22:54 Review of Systems ROS Statement: Those systems with pertinent positive or pertinent negative responses have been documented in the HPI. ROS Other: All systems not noted in ROS Statement are negative. 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 Gaping esophagus, barretts esophagus. 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 Nasal reduction, PEG tube placement , local cord surgery, Additional Past Anesthesia/Blood Transfusion Reaction / Comment(s): PARALYZED V OCAL CHORDS Past Psychological History: Anxiety Smoking Status: Former smoker Past Alcohol Use History: Occasional Past Drug Use History: None Reported - Past Family History Sister(s) Additional Family Medical History / Comment(s): passed colon CA Brother(s) Additional Family Medical History / Comment(s): sarcidosis Mother Additional Family Medical History / Comment(s): lung CA Son(s) Family Medical History: Hypertension Additional Family Medical History / Comment(s): lymphoma, sarcoidosis General Exam Limitations: no limitations General appearance: alert, in no apparent distress Head exam: Present: atraumatic, normocephalic Eye exam: Present: normal appearance, PERRL ENT exam: Present: mucous membranes dry Neck exam: Present: normal inspection. Absent: tenderness, meningismus Respiratory exam: Present: respiratory distress, wheezes, rhonchi Cardiovascular Exam: Present: normal rhythm, tachycardia GI/Abdominal exam: Present: soft. Absent: distended, tenderness Extremities exam: Present: normal inspection, normal capillary refill. Absent: pedal edema Neurological exam: Present: alert, oriented X3, CN II-XII intact, other (Very weak voice, no focal findings). Absent: motor sensory deficit Psychiatric exam: Present: normal affect, normal mood Skin exam: Present: warm, dry, intact. Absent: cyanosis, diaphoretic Course Vital Signs 10/24/18 10/24/18 10/24/18 22:16 23:18 23:28 Temperature 96.9 F L Pulse Rate 109 H 103 H 101 H Respiratory 20 Rate Blood Pressure 68/53 O2 Sat by Pulse 86 L Oximetry EKG Findings - EKG Comments: EKG Findings:: EKG: Normal sinus rhythm, left axis deviation and LVH, no ST segment elevation, rate of 99, MA interval 194, QRS duration 72, QTC 418 Medical Decision Making - Medical Decision Making 73-year-old male presenting with cough and dyspnea, concern for aspiration. Patient has COPD and neuromuscular disorder. Workup in the emergency department reveals normal blood cell count, stable hemoglobin, normal lactic acid 1.8. Chest x-ray shows bilateral infiltrate and pneumonia, worse on the left lower lobe. Patient is started on ceftriaxone and Flagyl as he has penicillin ALLERGY. Will be admitted for treatment of COPD, pneumonia, aspiration pneumonia. - Lab Data Result diagrams: 10/24/18 22:55 10/24/18 22:55 Lab Results 10/24/18 10/24/18 10/24/18 Range/Units 22:55 22:55 22:55 WBC 5.7 (3.8-10.6) k/uL RBC 4.42 (4.30-5.90) m/uL Hgb 14.1 (13.0-17.5) gm/dL Hct 42.8 (39.0-53.0) % MCV 96.8 (80.0-100.0) fL MCH 31.9 (25.0-35.0) pg MCHC 33.0 (31.0-37.0) g/dL RDW 13.4 (11.5-15.5) % Plt Count 173 (150-450) k/uL Neutrophils % (Manual) 78 % Band Neutrophils % 12 % Lymphocytes % (Manual) 8 % Monocytes % (Manual) 3 % Eosinophils % (Manual) 1 % Neutrophils # (Manual) 5.10 (1.3-7.7) k/uL Lymphocytes # (Manual) 0.46 L (1.0-4.8) k/uL Monocytes # (Manual) 0.17 (0-1.0) k/uL Eosinophils # (Manual) 0.06 (0-0.7) k/uL Nucleated RBCs 0 (0-0) /100 WBC Manual Slide Review Performed PT 9.8 (9.0-12.0) sec INR 0.9 (<1.2) APTT 22.6 (22.0-30.0) sec Sodium 131 L (137-145) mmol/L Potassium 5.1 (3.5-5.1) mmol/L Chloride 92 L (98-107) mmol/L Carbon Dioxide 32 H (22-30) mmol/L Anion Gap 7 mmol/L BUN 21 H (9-20) mg/dL Creatinine 0.39 L (0.66-1.25) mg/dL Est GFR (CKD-EPI)AfAm >90 (>60 ml/min/1.73 sqM) Est GFR (CKD-EPI)NonAf >90 (>60 ml/min/1.73 sqM) Glucose 106 H (74-99) mg/dL Plasma Lactic Acid Cristian (0.7-2.0) mmol/L Calcium 9.2 (8.4-10.2) mg/dL Magnesium 1.8 (1.6-2.3) mg/dL Total Bilirubin 1.0 (0.2-1.3) mg/dL AST 41 (17-59) U/L ALT 61 (21-72) U/L Alkaline Phosphatase 137 H (38-126) U/L Total Protein 7.6 (6.3-8.2) g/dL Albumin 3.9 (3.5-5.0) g/dL 10/24/18 Range/Units 22:55 WBC (3.8-10.6) k/uL RBC (4.30-5.90) m/uL Hgb (13.0-17.5) gm/dL Hct (39.0-53.0) % MCV (80.0-100.0) fL MCH (25.0-35.0) pg MCHC (31.0-37.0) g/dL RDW (11.5-15.5) % Plt Count (150-450) k/uL Neutrophils % (Manual) % Band Neutrophils % % Lymphocytes % (Manual) % Monocytes % (Manual) % Eosinophils % (Manual) % Neutrophils # (Manual) (1.3-7.7) k/uL Lymphocytes # (Manual) (1.0-4.8) k/uL Monocytes # (Manual) (0-1.0) k/uL Eosinophils # (Manual) (0-0.7) k/uL Nucleated RBCs (0-0) /100 WBC Manual Slide Review PT (9.0-12.0) sec INR (<1.2) APTT (22.0-30.0) sec Sodium (137-145) mmol/L Potassium (3.5-5.1) mmol/L Chloride (98-107) mmol/L Carbon Dioxide (22-30) mmol/L Anion Gap mmol/L BUN (9-20) mg/dL Creatinine (0.66-1.25) mg/dL Est GFR (CKD-EPI)AfAm (>60 ml/min/1.73 sqM) Est GFR (CKD-EPI)NonAf (>60 ml/min/1.73 sqM) Glucose (74-99) mg/dL Plasma Lactic Acid Cristian 1.8 (0.7-2.0) mmol/L Calcium (8.4-10.2) mg/dL Magnesium (1.6-2.3) mg/dL Total Bilirubin (0.2-1.3) mg/dL AST (17-59) U/L ALT (21-72) U/L Alkaline Phosphatase (38-126) U/L Total Protein (6.3-8.2) g/dL Albumin (3.5-5.0) g/dL Disposition Clinical Impression: Pneumonia, Dehydration, Aspiration into airway [facility] Condition: Stable Is patient prescribed a controlled substance at d/c from ED?: No Referrals: Harish Alvarado DO [Primary Care Provider] - 1-2 days Decision to Admit Reason: Admit from EC Decision Date: 10/25/18 Decision Time: 00:13
[2018-10-24 23:09] LABS: HCT 42.8 % (39.0-53.0); HGB 14.1 gm/dL (13.0-17.5); MCH 31.9 pg (25.0-35.0); MCV 96.8 fL (80.0-100.0); Mean Platelet Volume 8.2; Platelet Count 173 k/uL (150-450); RBC 4.42 m/uL (4.30-5.90); RDW 13.4 % (11.5-15.5); WBC 5.7 k/uL (3.8-10.6)
[2018-10-24 23:19] LABS: ALT 61 U/L (21-72); AST 41 U/L (17-59); Albumin 3.9 g/dL (3.5-5.0); Alkaline Phosphatase 137 U/L (38-126); Anion Gap 7 mmol/L; Blood Urea Nitrogen 21 mg/dL (9-20); Calcium 9.2 mg/dL (8.4-10.2); Carbon Dioxide 32 mmol/L (22-30); Chloride 92 mmol/L (98-107); Glucose 106 mg/dL (74-99); Magnesium 1.8 mg/dL (1.6-2.3); Potassium 5.1 mmol/L (3.5-5.1); Sodium 131 mmol/L (137-145); Total Protein 7.6 g/dL (6.3-8.2)
[2018-10-24 23:24] LABS: INR 0.9 (<1.2); Partial Thromboplastin Time 22.6 sec (22.0-30.0); Prothrombin Time 9.8 sec (9.0-12.0)
[2018-10-24 23:47] LABS: Band Neutrophils % 12 %; Eosinophils # (M) 0.06 k/uL (0-0.7); Lymphocytes # (M) 0.46 k/uL (1.0-4.8); Monocytes # (M) 0.17 k/uL (0-1.0); Neutrophils % (M) 78 %; Nucleated Red Blood Cells 0 /100 WBC (0-0); Total Cells Counted 200
--- NOTE | 2018-10-24 23:54 | XR ---
EXAM: XR Chest, 2 Views CLINICAL HISTORY: ITS.REASON XR Reason: difficulty breathing TECHNIQUE: Frontal and lateral views of the chest. COMPARISON: 04/22/18. FINDINGS: Lungs: Bibasilar infiltrates/consolidation. Pleural space: Possible trace pleural effusions. Heart: Likely stable cardiomediastinal silhouette. Mediastinum: See above. Bones/joints: No acute fracture. IMPRESSION: 1. Bibasilar infiltrates/consolidation. Correlate clinically for inflammatory/infectious process. 2. Possible trace pleural effusions.
[2018-10-25 02:15] LABS: Appearance,Urine Clear (Clear); Bilirubin,Urine Negative (Negative); Blood,Urine Negative (Negative); Color,Urine Yellow; Glucose,Urine (UA) Negative (Negative); Ketones,Urine 1+ (Negative); Leukocyte Esterase,Urine Negative (Negative); Nitrite,Urine Negative (Negative); Protein,Urine Trace (Negative); Specific Gravity,Urine 1.017 (1.001-1.035); Urobilinogen,Urine <2.0 mg/dL (<2.0)
[2018-10-25] MEDS: metroNIDAZOLE-NS PMX 500 MG in SALINE 1 100ML.BAG IVPB SCH ×3 (02:15→16:36)
[2018-10-25] MEDS: IPRATROPIUM-ALBUTEROL 3 ML NEB INHALATION SCH ×4 (07:31→20:12)
[2018-10-25] MEDS: methylPREDNISolone SOD SUCCI 125 MG/2 ML VIAL IV SCH ×3 (07:56→17:47)
[2018-10-25] MEDS: SYMBICORT 160-4.5 MCG INHALER INHALATION SCH (20:12)
--- NOTE | 2018-10-25 23:36 | P.HPIM ---
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 Patient says that she did have a coughing spell and aspirated. Otherwise denied any fever or chills. Denied any chest pain. No nausea vomiting or diarrhea. No sputum production. Patient thought he has aspirated and came to ER for evaluation. Otherwise no history of heart problems. No leg swelling. Chest x-ray showed bibasilar infiltrate/consolidation. Correlate clinically for intermittently/infectious process. Possible trace pleural effusions. No leukocytosis. EKG showed normal sinus rhythm Patient is tachycardic, tachypneic and hypoxic on admission. Review of Systems Constitutional: Patient denies any fever or chills . No generalized weakness or weight loss. Abdomen: Patient denied nausea vomiting and diarrhea and abdominal pain. Cardiovascular: Patient denies any chest pain or short of breath no palpitations. Respiratory: Cough without sputum production. No shortness of breath Neurologic: Patient denied any numbness or tingling headache. Musculoskeletal: Patient denies any complaints of joint swelling or deformity. Skin: Negative Psychiatric: Negative Endocrine: No heat or cold intolerance. No recent weight gain. Genitourinary: No dysuria or hematuria. 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 Gaping esophagus, barretts esophagus. 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 Nasal reduction, PEG tube placement , local cord surgery, Additional Past Anesthesia/Blood Transfusion Reaction / Comment(s): PARALYZED VOCAL CHORDS Past Psychological History: Anxiety Smoking Status: Former smoker Past Alcohol Use History: Occasional Past Drug Use History: None Reported - Past Family History Sister(s) Additional Family Medical History / Comment(s): passed colon CA Brother(s) Additional Family Medical History / Comment(s): sarcidosis Mother Additional Family Medical History / Comment(s): lung CA Son(s) Family Medical History: Hypertension Additional Family Medical History / Comment(s): lymphoma, sarcoidosis Medications and Allergies Home Medications Medication Instructions Recorded Confirmed Type Omeprazole 20 mg PEG/G-TUBE BID 07/31/14 10/24/18 History Ipratropium/Albuterol Sulfate 1 puff INHALATION RT-QID 05/01/17 10/24/18 History [Combivent Respimat Inhaler] Loratadine-Pseudoeph 10-240 mg 1 tab PEG/G-TUBE DAILY 05/01/17 10/24/18 History [Claritin-D 24 Hour] Albuterol Sulfate [Proventil Hfa] 2 puff INHALATION RT-QID PRN 01/28/18 10/24/18 History Aspirin EC [Ecotrin Low Dose] 81 mg PEG/G-TUBE DAILY 01/28/18 10/24/18 History guaiFENesin [Mucinex] 600 mg PEG/G-TUBE BID 04/23/18 10/24/18 History Zolpidem [Ambien] 5 mg PEG/G-TUBE HS PRN 08/29/18 10/24/18 History Fluticasone/Vilanterol [Breo 1 puff INHALATION RT-DAILY 10/24/18 10/24/18 History Ellipta 200-25 Mcg INH] Allergies Allergy/AdvReac Type Severity Reaction Status Date / Time Penicillins Allergy Itching Verified 10/24/18 22:54 piperacillin [From Zosyn] Allergy Itching Verified 10/24/18 22:54 Sulfa (Sulfonamide Allergy Rash/Hives Verified 10/24/18 22:54 Antibiotics) tazobactam [From Zosyn] Allergy Itching Verified 10/24/18 22:54 Physical Exam Vitals: Vital Signs Temp Pulse Resp BP Pulse Ox 10/25/18 11:14 112 H 10/25/18 11:03 112 H 10/25/18 10:00 133/47 10/25/18 08:00 111 H 20 122/91 95 10/25/18 07:57 113 H 20 122/91 96 10/25/18 07:42 108 H 10/25/18 07:32 96 10/25/18 06:00 111 H 20 105/87 10/25/18 05:26 111 H 20 137/94 97 10/25/18 04:00 128 H 20 139/118 10/25/18 02:59 98.3 F 103 H 20 104/73 96 10/25/18 02:00 20 104/77 10/25/18 01:15 23 10/25/18 01:07 25 H 10/25/18 00:34 102 H 18 130/89 97 10/25/18 00:09 99 19 110/83 96 10/25/18 00:00 98 20 112/80 10/24/18 23:28 101 H 10/24/18 23:18 103 H 10/24/18 22:34 104 H 26 H 95 10/24/18 22:16 96.9 F L 109 H 20 68/53 86 L Intake and Output 10/24/18 10/25/18 10/25/18 22:59 06:59 14:59 Other: Weight 67.132 kg PHYSICAL EXAMINATION: Patient is lying in the bed comfortably, no acute distress, awake alert and oriented.. HEENT: Normocephalic. Neck is supple. Pupils reactive. Nostrils clear. Oral cavity is moist. Ears reveal no drainage. Neck reveals no JVD, carotid bruits, or thyromegaly. CHEST EXAMINATION: Trachea is central. Symmetrical expansion. Bibasilar diminished air entry. Scattered rhonchi. Otherwise Lung perrin clear to auscultation and percussion. CARDIAC: Normal S1, S2 with no gallops. No murmurs ABDOMEN: Soft. PEG tube is in place. Bowel sounds normal. No organomegaly. No abdominal bruits. Extremities: reveal no edema. No clubbing or cyanosis Neurologically awake, alert, oriented x3 . Generalized muscle weakness and atrophy. No focal deficits noted Skin: No rash or skin lesions. Psychiatric: Coperative. Nonsuicidal Musculoskeletal: No joint swelling or deformity. Normal range of motion. Results CBC & Chem 7: 10/24/18 22:55 10/24/18 22:55 Labs: Abnormal Lab Results - Last 24 Hours (Table) 10/24/18 10/24/18 10/25/18 Range/Units 22:55 22:55 02:02 Lymphocytes # (Manual) 0.46 L (1.0-4.8) k/uL Sodium 131 L (137-145) mmol/L Chloride 92 L (98-107) mmol/L Carbon Dioxide 32 H (22-30) mmol/L BUN 21 H (9-20) mg/dL Creatinine 0.39 L (0.66-1.25) mg/dL Glucose 106 H (74-99) mg/dL Alkaline Phosphatase 137 H (38-126) U/L Urine Protein Trace H (Negative) Urine Ketones 1+ H (Negative) Thrombosis Risk Factor Assmnt - DVT/VTE Prophylaxis DVT/VTE Prophylaxis: Pharmacologic Prophylaxis ordered Assessment and Plan Assessment: Bibasilar infiltrates due to aspiration pneumonia. Acute hypoxic respiratory failure on admission. 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 Continue with duo nebs and IV steroids. Pulmonary was consulted. Continue with home medications and further recommendations based on the clinical course. Prognosis is guarded with multiple medical problems and comorbid conditions. PEG tube feeding. Aspiration precautions. Time with Patient: Greater than 30
[2018-10-26] MEDS: methylPREDNISolone SOD SUCCI 125 MG/2 ML VIAL IV SCH ×5 (00:25→23:28)
[2018-10-26] MEDS: metroNIDAZOLE-NS PMX 500 MG in SALINE 1 100ML.BAG IVPB SCH ×3 (00:26→08:41)
[2018-10-26 07:24] LABS: Glucose,Whole Blood 135 mg/dL (75-99)
[2018-10-26] MEDS: ASPIRIN 81 MG PEG/G-TUBE SCH (08:30)
[2018-10-26] MEDS: PANTOPRAZOLE SODIUM 40 MG GRANULE PKT PEG/G-TUBE SCH (08:31)
[2018-10-26] MEDS: IPRATROPIUM-ALBUTEROL 3 ML NEB INHALATION SCH ×4 (08:57→18:53)
[2018-10-26 11:54] LABS: Glucose,Whole Blood 136 mg/dL (75-99)
--- NOTE | 2018-10-26 12:19 | P.CNPUL ---
History of Present Illness Consult date: 10/26/18 Requesting physician: Johnathon E Sheet Reason for consult: dyspnea, cough, hypoxemia, pneumonia, abnormal CXR/CT Chief complaint: acute bibasilar pneumonia, left greater than the right History of present illness: This is a 73-year-old white female patient of Dr. 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 Patient has had numerous episodes of aspiration pneumonia. he does take some fluids by mouth small amounts of water, but no solids. Patient has a history of COPD, is on home oxygen at 2 L/m. Patient is an ex-smoker, quit smoking many years ago. Other history includes multiple myeloma, rheumatoid arthritis, anxiety. Patient has chronic elevation of the right hemidiaphragm. patient has had previous bronchoscopies with BAL and bronchial washings from on 04/15/2018 were positive for Serratia marcescens and Acromobacter xylose, with resistance to multiple antibiotics, but susceptible to meropenem. On 10/24/2018 patient presented to the emergency department with his family for complaints of worsening shortness of breath, coughing spell, he thinks he may have aspirated, his oxygen needs increased, he did have a subjective fever and chills. Denied any chest pain, denied any ongoing nausea or vomiting. chest x-ray was completed and showed a bibasilar infiltrates, left greater than the right suspicious for pneumonic infiltrates. lab work was completed and showed white blood cell count of 5.7, hemoglobin of 14.1, sodium was 131, potassium is 5.1, chloride was 92, CO2 is 32, BUN is 21 creatinine 0.39, influenza was negative, urinalysis was negative. Patient was started on Rocephin and Flagyl, and was admitted for further management. patient is seen on the medical surgical floor, onto his of oxygen, with a pulse ox of 92%, afebrile, hemodynamically stable, he denies any acute complaints. Lung sounds are positive for scattered crackles and rhonchi at the bases. Review of Systems All systems: negative Constitutional: Denies chills, Denies fever Eyes: denies blurred vision, denies pain Ears, nose, mouth and throat: Denies headache, Denies sore throat Cardiovascular: Denies chest pain, Denies shortness of breath Respiratory: Reports dyspnea, Reports home oxygen, Reports respiratory infections, Reports wheezing, Denies cough Gastrointestinal: Denies abdominal pain, Denies diarrhea, Denies nausea, Denies vomiting Musculoskeletal: Denies myalgias Integumentary: Denies pruritus, Denies rash Neurological: Denies numbness, Denies weakness Psychiatric: Denies anxiety, Denies depression Endocrine: Denies fatigue, Denies weight change Past Medical History Past Medical History: Blood Disorder, COPD, CVA/TIA, GERD/Reflux, Rheumatoid Arthritis (RA) Additional Past Medical History / Comment(s): DYSPHAGIA, ASPIRATION PRECAUTIONS, 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 Gaping esophagus, barretts esophagus. 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 Nasal reduction, PEG tube placement , local cord surgery, Additional Past Anesthesia/Blood Transfusion Reaction / Comment(s): PARALYZED VOCAL CHORDS Past Psychological History: Anxiety Smoking Status: Former smoker Past Alcohol Use History: Occasional Past Drug Use History: None Reported - Past Family History Sister(s) Additional Family Medical History / Comment(s): passed colon CA Brother(s) Additional Family Medical History / Comment(s): sarcidosis Mother Additional Family Medical History / Comment(s): lung CA Son(s) Family Medical History: Hypertension Additional Family Medical History / Comment(s): lymphoma, sarcoidosis Medications and Allergies Home Medications Medication Instructions Recorded Confirmed Type Omeprazole 20 mg PEG/G-TUBE BID 07/31/14 10/24/18 History Ipratropium/Albuterol Sulfate 1 puff INHALATION RT-QID 05/01/17 10/24/18 History [Combivent Respimat Inhaler] Loratadine-Pseudoeph 10-240 mg 1 tab PEG/G-TUBE DAILY 05/01/17 10/24/18 History [Claritin-D 24 Hour] Albuterol Sulfate [Proventil Hfa] 2 puff INHALATION RT-QID PRN 01/28/18 10/24/18 History Aspirin EC [Ecotrin Low Dose] 81 mg PEG/G-TUBE DAILY 01/28/18 10/24/18 History guaiFENesin [Mucinex] 600 mg PEG/G-TUBE BID 04/23/18 10/24/18 History Zolpidem [Ambien] 5 mg PEG/G-TUBE HS PRN 08/29/18 10/24/18 History Fluticasone/Vilanterol [Breo 1 puff INHALATION RT-DAILY 10/24/18 10/24/18 History Ellipta 200-25 Mcg INH] Allergies Allergy/AdvReac Type Severity Reaction Status Date / Time Penicillins Allergy Itching Verified 10/24/18 22:54 piperacillin [From Zosyn] Allergy Itching Verified 10/24/18 22:54 Sulfa (Sulfonamide Allergy Rash/Hives Verified 10/24/18 22:54 Antibiotics) tazobactam [From Zosyn] Allergy Itching Verified 10/24/18 22:54 Physical Exam Vitals: Vital Signs Temp Pulse Pulse Resp BP BP Pulse Ox 10/26/18 09:09 104 H 10/26/18 08:58 104 H 10/26/18 08:48 97.7 F 80 16 128/85 92 L 10/26/18 00:59 97.6 F 89 16 114/72 95 10/25/18 20:27 100 10/25/18 20:13 100 10/25/18 20:03 97.5 F L 109 H 18 115/77 93 L 10/25/18 17:27 100 10/25/18 17:15 100 10/25/18 16:17 98.6 F 94 20 115/76 94 L 10/25/18 15:53 98.1 F 16 L 20 120/86 96 Intake and Output 10/25/18 10/26/18 10/26/18 22:59 06:59 14:59 Other: Voiding Method Toilet # Voids 2 1 1 # Bowel Movements 1 GENERAL EXAM: Alert, pleasant, 73-year-old white male, with slurring of the speech, on 2 L of oxygen per nasal cannulacomfortable in no apparent distress. HEAD: Normocephalic/atraumatic. EYES: Normal reaction of pupils, equal size. Conjunctiva pink, sclera white. NOSE: Clear with pink turbinates. THROAT: No erythema or exudates. NECK: No masses, no JVD, no thyroid enlargement, no adenopathy. CHEST: No chest wall deformity. Symmetrical expansion. LUNGS: Equal air entry with scattered crackles and rhonchi CVS: Regular rate and rhythm, normal S1 and S2, no gallops, no murmurs, no rubs ABDOMEN: Soft, nontender. No hepatosplenomegaly, normal bowel sounds, no guarding or rigidity.PEG tube in place Tube feeding infusing EXTREMITIES: No clubbing, no edema, no cyanosis, 2+ pulses and upper and lower extremities. MUSCULOSKELETAL: Muscle strength and tone normal. SPINE: No scoliosis or deformity SKIN: No rashes CENTRAL NERVOUS SYSTEM: Alert and oriented -3. No focal deficits, tone is normal in all 4 extremities. PSYCHIATRIC: Alert and oriented -3. Appropriate affect. Intact judgment and insight. Results - Laboratory Findings CBC and BMP: 10/24/18 22:55 10/24/18 22:55 PT/INR, D-dimer PT 9.8 sec (9.0-12.0) 10/24/18 22:55 INR 0.9 (<1.2) 10/24/18 22:55 Abnormal lab findings: Abnormal Labs 10/24/18 10/24/18 10/25/18 22:55 22:55 02:02 Lymphocytes # (Manual) 0.46 L Sodium 131 L Chloride 92 L Carbon Dioxide 32 H BUN 21 H Creatinine 0.39 L Glucose 106 H POC Glucose (mg/dL) Alkaline Phosphatase 137 H Urine Protein Trace H Urine Ketones 1+ H 10/26/18 10/26/18 07:13 11:43 Lymphocytes # (Manual) Sodium Chloride Carbon Dioxide BUN Creatinine Glucose POC Glucose (mg/dL) 135 H 136 H Alkaline Phosphatase Urine Protein Urine Ketones - Diagnostic Findings Chest x-ray: report reviewed, image reviewed Assessment and Plan Plan: assessment: #1. Acute on chronic hypoxemic respiratory failure related to bibasilar pneumonia, left greater than right, possibly related to aspiration #2. severe dyspnea, coughing spells, bronchospasm related to the above, improved #3. acute COPD exacerbation related to aspiration #4. Chronic dysphagia and aspiration due to vocal cord paralysis related to history of CVA. Chronic PEG tube in place #5. Previous episodes of aspiration pneumonia #6. Hyponatremia, patient has a degree of chronic hyponatremia, usually serum sodium ranges from 129 2-134 #7. Chronic obstructive pulmonary disease with chronic hypoxemic respiratory failure #8. History of multiple myeloma #9. GERD/reflux, history of Phillips's esophagus #10. History of rheumatoid arthritis Plan: We'll switch the antibiotics from Rocephin and Flagyl to meropenem, previous bronchoscopy cultures have been reviewed, and cultures were positive for Serratia marcescens and gram-negative negative organisms with resistance to multiple antibiotics. He is feeling better, clinically improving, we'll continue the IV steroids nebulized bronchodilators continue supportive treatment. Tolerating tube feedings, no further episodes of nausea or vomiting, he is back to his baseline oxygen, continue good oxygenation. continue to follow and make further recommendations I performed a history & physical examination of the patient and discussed their management with my nurse practitioner, Carol Key. I reviewed the nurse practitioner's note and agree with the documented findings and plan of care. Lung sounds are positive for diffuse wheezes throughout the lung perrin. The findings and the impression was discussed with the patient. I attest to the documentation by the nurse practitioner. Time with Patient: Greater than 30
[2018-10-26] MEDS: MEROPENEM 1 GM in SODIUM CHLORIDE 0.9% 100 ML IVPB SCH ×2 (15:34→23:28)
[2018-10-26 15:50] LABS: Anion Gap 8 mmol/L; Blood Urea Nitrogen 28 mg/dL (9-20); Calcium 9.8 mg/dL (8.4-10.2); Carbon Dioxide 34 mmol/L (22-30); Chloride 97 mmol/L (98-107); Glucose 179 mg/dL (74-99); Potassium 4.8 mmol/L (3.5-5.1); Sodium 139 mmol/L (137-145)
[2018-10-26 17:39] LABS: Glucose,Whole Blood 136 mg/dL (75-99)
[2018-10-26] MEDS: SYMBICORT 160-4.5 MCG INHALER INHALATION SCH (18:52)
[2018-10-26] MEDS ORDERED: METOPROLOL TARTRATE 25 MG TAB PO STA (20:07)
[2018-10-26 20:48] LABS: Glucose,Whole Blood 204 mg/dL (75-99)
--- NOTE | 2018-10-26 20:53 | XR ---
EXAMINATION TYPE: XR chest 1V portable DATE OF EXAM: 10/26/2018 COMPARISON: 10/24/2018 HISTORY: Tachycardia TECHNIQUE: Single frontal view of the chest is obtained. FINDINGS: Heart is enlarged. There is blunting of right costophrenic angle. There is some atelectasi s at the lung bases. Thoracic aorta is atheromatous. IMPRESSION: Right pleural effusion. Basilar pulmonary atelectasis. No significant change compared to old exam. No heart failure.
[2018-10-26] MEDS: DILTIAZEM 125 MG in SODIUM CHLORIDE 0.9% 100 ML IV SCH (22:10)
[2018-10-26] MEDS ORDERED: HEPARIN SODIUM,PORCINE 5,000 UNIT/ML 1 ML VIAL IV ONE (23:56)
[2018-10-26] MEDS ORDERED: HEPARIN SODIUM,PORCINE 5,000 UNIT/ML 1 ML VIAL IV PRN (23:56)
[2018-10-27] MEDS: HEPARIN SOD,PORK IN 0.45% NACL 25,000 UNIT in 0.45% NACL 1 250ML.BAG IV SCH ×2 (00:46→23:46)
[2018-10-27 01:12] LABS: Partial Thromboplastin Time 22.4 sec (22.0-30.0); Prothrombin Time 10.4 sec (9.0-12.0)
[2018-10-27 06:16] LABS: Glucose,Whole Blood 135 mg/dL (75-99)
[2018-10-27] MEDS: INSULIN ASPART (NovoLOG) 100 UNIT/ML VIAL SQ SCH ×4 (06:16→20:23)
[2018-10-27] MEDS: methylPREDNISolone SOD SUCCI 125 MG/2 ML VIAL IV SCH ×4 (06:33→23:18)
[2018-10-27 07:48] LABS: Basophils % (A) 0 %; Eosinophils % (A) 0 %; HCT 36.8 % (39.0-53.0); HGB 12.2 gm/dL (13.0-17.5); Lymphocytes # (A) 0.6 k/uL (1.0-4.8); Lymphocytes % (A) 7 %; MCHC 33.2 g/dL (31.0-37.0); MCV 99.4 fL (80.0-100.0); Mean Platelet Volume 8.7; Monocytes # (A) 0.4 k/uL (0-1.0); Monocytes % (A) 4 %; Neutrophils # (A) 7.7 k/uL (1.3-7.7); Neutrophils % (A) 88 %; Platelet Count 168 k/uL (150-450); RDW 13.6 % (11.5-15.5); WBC 8.8 k/uL (3.8-10.6)
[2018-10-27 08:25] LABS: Anion Gap 3 mmol/L; Blood Urea Nitrogen 28 mg/dL (9-20); Calcium 9.5 mg/dL (8.4-10.2); Carbon Dioxide 37 mmol/L (22-30); Chloride 100 mmol/L (98-107); Glucose 125 mg/dL (74-99); Potassium 4.8 mmol/L (3.5-5.1); Sodium 140 mmol/L (137-145)
[2018-10-27] MEDS: ASPIRIN 81 MG PEG/G-TUBE SCH (08:36)
[2018-10-27] MEDS: PANTOPRAZOLE SODIUM 40 MG GRANULE PKT PEG/G-TUBE SCH (08:36)
[2018-10-27] MEDS: SYMBICORT 160-4.5 MCG INHALER INHALATION SCH ×3 (08:42→20:38)
[2018-10-27] MEDS: IPRATROPIUM-ALBUTEROL 3 ML NEB INHALATION SCH ×5 (08:42→20:38)
--- NOTE | 2018-10-27 09:34 | P.CRDCN ---
History of Present Illness History of present illness: This is Dr. Orozco dictating a consult on this patient The patient was interviewed and examined by me IMPRESSION / ASSESSMENT: Paroxysmal atrial fibrillation RVR. This time in the setting of bilateral pneumonitis He says he's had 1 episode before Bilateral pneumonitis on IV antibiotics Prior history of CVA PLAN: Continue IV heparin and start oral anticoagulants U Coumadin or one of the new agents Start oral verapamil 180 mg by mouth daily long-acting and then tomorrow IV Cardizem can be discontinued 2-D echo and Doppler study to assess chronic structural function once atrial fibrillation is rate controlled HPI patient presented with pneumonitis with worsening dyspnea. He was having coughing spells. He denied any fever chills no nausea vomiting or diarrhea No leukocytosis initially he was in normal sinus rhythm but he was tachycardic tachypneic and hypoxic on admission Later he went to atrial fibrillation with RVR and currently was consulted protocol to that. Currently is on a Cardizem drip He's had atrial fibrillation once before but is not on oral anticoagulants at home ROS: No fever chills or rigors, no cough, phlegm or expectoration, no nausea, vomiting or diarrhea, no hematuria, dysuria, no musculoskeletal complaints, no strokes or seizures, no skin lesions. EXAMINATION: On examination he is mildly tachypneic but able to rest in bed at 20-30 angle Blood pressure 131/86. His mercury pulse rate between 90-110 beats a minute afebrile Breath sounds are reduced bilaterally with bilateral rhonchi and crackles at the bases Heart sounds are irregular no murmurs Abdomen soft Extremities are warm to lie no JVD REVIEW OF LABS, ECG & MEDICAL DATA Chest x-ray shows bibasilar infiltrates First 12-lead ECG shows sinus rhythm 99 beats a minute narrow QRS normal MS interval normal ST segments Telemetry shows atrial fibrillation with RVR Hemoglobin 12.2, white count 8.8, potassium normal sodium normal BUN 28 creatinine 0.4 to, TSH 0.98 Past Medical History Past Medical History: Blood Disorder, COPD, CVA/TIA, GERD/Reflux, Rheumatoid Arthritis (RA) Additional Past Medical History / Comment(s): DYSPHAGIA, ASPIRATION PRECAUTIONS, 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 Gaping esophagus, barretts esophagus. 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 Nasal reduction, PEG tube placement , local cord surgery, Additional Past Anesthesia/Blood Transfusion Reaction / Comment(s): PARALYZED VOCAL CHORDS Past Psychological History: Anxiety Smoking Status: Former smoker Past Alcohol Use History: Occasional Past Drug Use History: None Reported - Past Family History Sister(s) Additional Family Medical History / Comment(s): passed colon CA Brother(s) Additional Family Medical History / Comment(s): sarcidosis Mother Additional Family Medical History / Comment(s): lung CA Son(s) Family Medical History: Hypertension Additional Family Medical History / Comment(s): lymphoma, sarcoidosis Medications and Allergies Home Medications Medication Instructions Recorded Confirmed Type Omeprazole 20 mg PEG/G-TUBE BID 07/31/14 10/24/18 History Ipratropium/Albuterol Sulfate 1 puff INHALATION RT-QID 05/01/17 10/24/18 History [Combivent Respimat Inhaler] Loratadine-Pseudoeph 10-240 mg 1 tab PEG/G-TUBE DAILY 05/01/17 10/24/18 History [Claritin-D 24 Hour] Albuterol Sulfate [Proventil Hfa] 2 puff INHALATION RT-QID PRN 01/28/18 10/24/18 History Aspirin EC [Ecotrin Low Dose] 81 mg PEG/G-TUBE DAILY 01/28/18 10/24/18 History guaiFENesin [Mucinex] 600 mg PEG/G-TUBE BID 04/23/18 10/24/18 History Zolpidem [Ambien] 5 mg PEG/G-TUBE HS PRN 08/29/18 10/24/18 History Fluticasone/Vilanterol [Breo 1 puff INHALATION RT-DAILY 10/24/18 10/24/18 History Ellipta 200-25 Mcg INH] Allergies Allergy/AdvReac Type Severity Reaction Status Date / Time Penicillins Allergy Itching Verified 10/24/18 22:54 piperacillin [From Zosyn] Allergy Itching Verified 10/24/18 22:54 Sulfa (Sulfonamide Allergy Rash/Hives Verified 10/24/18 22:54 Antibiotics) tazobactam [From Zosyn] Allergy Itching Verified 10/24/18 22:54 Physical Exam Vitals: Vital Signs Temp Pulse Pulse Resp BP Pulse Ox 10/27/18 09:17 94 10/27/18 09:06 106 H 10/27/18 07:46 97.2 F L 76 18 131/86 96 10/27/18 03:45 97.7 F 116 H 17 122/88 91 L 10/27/18 00:18 98.1 F 119 H 18 126/84 98 10/26/18 21:00 126 H 18 111/88 94 L 10/26/18 20:18 136 H 107/80 10/26/18 20:13 129 H 110/83 10/26/18 20:04 125 H 15 139/73 93 L 10/26/18 19:09 100 10/26/18 18:56 100 10/26/18 15:25 100 10/26/18 15:13 100 10/26/18 15:00 97.8 F 90 16 121/76 94 L 10/26/18 13:25 92 10/26/18 13:11 92 Intake and Output 10/26/18 10/27/18 10/27/18 22:59 06:59 14:59 Intake Total 0 10.583 69.953 Output Total 200 100 Balance -200 -89.417 69.953 Intake: Intake, IV Titration 10.583 69.953 Amount Diltiazem 125 mg In 10.583 Sodium Chloride 0.9% 100 ml @ 5 MG/HR 5 mls/hr IV .Q24H [facility] Rx#:[id number] Heparin Sod,Pork in 0.45% 69.953 NaCl 25,000 unit In 0.45 % NaCl 1 250ml.bag @ 12 UNITS/KG/HR 8.056 mls/hr IV .Q24H [facility] Rx#: [id number] Other 0 Output: Urine 200 100 Other: Voiding Method Toilet Toilet Urinal Urinal # Voids 3 # Bowel Movements 1 Weight 69.2 kg Results 10/27/18 07:04 10/27/18 07:04 Coagulation 10/27/18 10/27/18 Range/Units 00:46 07:04 PT 10.4 (9.0-12.0) sec APTT 22.4 33.6 H (22.0-30.0) sec CBC 10/27/18 Range/Units 07:04 WBC 8.8 (3.8-10.6) k/uL RBC 3.70 L (4.30-5.90) m/uL Hgb 12.2 L (13.0-17.5) gm/dL Hct 36.8 L (39.0-53.0) % Plt Count 168 (150-450) k/uL Comprehensive Metabolic Panel 10/26/18 10/27/18 Range/Units 15:13 07:04 Sodium 139 140 (137-145) mmol/L Potassium 4.8 4.8 (3.5-5.1) mmol/L Chloride 97 L 100 (98-107) mmol/L Carbon Dioxide 34 H 37 H (22-30) mmol/L BUN 28 H 28 H (9-20) mg/dL Creatinine 0.49 L 0.42 L (0.66-1.25) mg/dL Glucose 179 H 125 H (74-99) mg/dL Calcium 9.8 9.5 (8.4-10.2) mg/dL Current Medications Generic Name Dose Route Start Last Admin Trade Name Freq PRN Reason Stop Dose Admin Albuterol/Ipratropium 3 ml 10/25/18 00:08 Duoneb 0.5 Mg-3 Mg/3 Ml Soln INHALATION RT-Q4H PRN Shortness Of Breath Or Wheezing Albuterol/Ipratropium 3 ml 10/25/18 08:00 10/27/18 09:02 Duoneb 0.5 Mg-3 Mg/3 Ml Soln INHALATION 3 ml RT-QID [facility] Administration Aspirin 81 mg 10/26/18 09:00 10/27/18 08:36 Aspirin PEG/G-TUBE 81 mg DAILY [facility] Administration Budesonide/Formoterol Fumarate 2 puff 10/26/18 08:00 10/27/18 09:02 Symbicort 160-4.5 Mcg Inhaler INHALATION 2 puff RT-BID [facility] Administration Heparin Sodium (Porcine) 0 unit 10/26/18 23:56 Heparin IV PER PROTOCOL PRN Low PTT Protocol Meropenem 1 gm/ Sodium 100 mls @ 200 mls/hr 10/26/18 16:00 10/26/18 23:28 Chloride IVPB 200 mls/hr Q8HR [facility] Administration Protocol Diltiazem HCl 125 mg/ Sodium 125 mls @ 5 mls/hr 10/26/18 20:30 10/27/18 00:17 Chloride IV 10 mg/hr .Q24H [facility] 10 mls/hr Infusion 5 MG/HR Heparin Sodium/Sodium Chloride 250 mls @ 8.056 mls/hr 10/27/18 00:00 10/27/18 09:27 25,000 unit/ Sodium Chloride IV 9.8 units/kg/hr .Q24H [facility] 6.579 mls/hr Titration Protocol 12 UNITS/KG/HR Insulin Aspart 0 unit 10/27/18 07:30 10/27/18 06:16 Novolog SQ Not Given ACHS [facility] Protocol Methylprednisolone Sodium Succinate 60 mg 10/25/18 06:00 10/27/18 06:33 Solu-Medrol IV 60 mg Q6HR [facility] Administration Pantoprazole Sodium 40 mg 10/26/18 07:30 10/27/18 08:36 Protonix PEG/G-TUBE 40 mg AC-[id number] [facility] Administration Zolpidem Tartrate 5 mg 10/25/18 12:05 Ambien PEG/G-TUBE HS PRN Insomnia Intake and Output 10/26/18 10/27/18 10/27/18 22:59 06:59 14:59 Intake Total 0 10.583 69.953 Output Total 200 100 Balance -200 -89.417 69.953 Intake: Intake, IV Titration 10.583 69.953 Amount Diltiazem 125 mg In 10.583 Sodium Chloride 0.9% 100 ml @ 5 MG/HR 5 mls/hr IV .Q24H [facility] Rx#:[id number] Heparin Sod,Pork in 0.45% 69.953 NaCl 25,000 unit In 0.45 % NaCl 1 250ml.bag @ 12 UNITS/KG/HR 8.056 mls/hr IV .Q24H [facility] Rx#: [id number] Other 0 Output: Urine 200 100 Other: Voiding Method Toilet Toilet Urinal Urinal # Voids 3 # Bowel Movements 1 Weight 69.2 kg 10/27/18 07:04 10/27/18 07:04
[2018-10-27] MEDS: MEROPENEM 1 GM in SODIUM CHLORIDE 0.9% 100 ML IVPB SCH ×3 (09:35→23:19)
[2018-10-27] MEDS: VERAPAMIL SR 180 MG TABLET.ER PO SCH (12:06)
[2018-10-27 12:10] LABS: Glucose,Whole Blood 138 mg/dL (75-99)
[2018-10-27 16:34] LABS: Glucose,Whole Blood 175 mg/dL (75-99)
[2018-10-27] MEDS: DILTIAZEM 125 MG in SODIUM CHLORIDE 0.9% 100 ML IV SCH (20:21)
[2018-10-27 20:35] LABS: Glucose,Whole Blood 133 mg/dL (75-99)
--- NOTE | 2018-10-27 23:29 | P.PN ---
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 Patient says that she did have a coughing spell and aspirated. Otherwise denied any fever or chills. Denied any chest pain. No nausea vomiting or diarrhea. No sputum production. Patient thought he has aspirated and came to ER for evaluation. Otherwise no history of heart problems. No leg swelling. Chest x-ray showed bibasilar infiltrate/consolidation. Correlate clinically for intermittently/infectious process. Possible trace pleural effusions. No leukocytosis. EKG showed normal sinus rhythm Patient is tachycardic, tachypneic and hypoxic on admission. 10/26/2018 Patient says that she did have some improvement in the breathing status. Antibiotics have been changed to meropenem as per previous cultures. Pulmonary has seen the patient. Otherwise patient developed atrial fibrillation with RVR. Patient will be transferred to telemetry unit. Started on Cardizem drip and heparin drip will be started. Mark bernard does have history of paroxysmal atrial fibrillation currently not on any anticoagulation at home. No further nausea vomiting or abdominal pain. No fever no chills. Tolerating PEG tube feeding. Denied any coughing spells again. Current medications reviewed. Objective - Vital Signs Vital signs: Vital Signs Temp 97.8 F 10/26/18 15:00 Pulse 136 H 10/26/18 20:18 Resp 15 10/26/18 20:04 BP 107/80 10/26/18 20:18 Pulse Ox 93 L 10/26/18 20:04 Intake & Output 10/26/18 10/26/18 10/27/18 06:59 18:59 06:59 Intake Total 0 Balance 0 Intake: Other 0 Other: Voiding Method Toilet # Voids 1 3 # Bowel Movements 1 1 - Exam PHYSICAL EXAMINATION: Patient is lying in the bed comfortably, no acute distress, awake alert and oriented.. HEENT: Normocephalic. Neck is supple. Pupils reactive. Nostrils clear. Oral cavity is moist. Ears reveal no drainage. Neck reveals no JVD, carotid bruits, or thyromegaly. CHEST EXAMINATION: Trachea is central. Symmetrical expansion. Bibasilar diminished air entry. Scattered rhonchi. Otherwise Lung perrin clear to auscultation and percussion. CARDIAC: Normal S1, S2 with no gallops. No murmurs ABDOMEN: Soft. PEG tube is in place. Bowel sounds normal. No organomegaly. No abdominal bruits. Extremities: reveal no edema. No clubbing or cyanosis Neurologically awake, alert, oriented x3 . Generalized muscle weakness and atrophy. No focal deficits noted Skin: No rash or skin lesions. Psychiatric: Coperative. Nonsuicidal Musculoskeletal: No joint swelling or deformity. Normal range of motion. - Labs CBC & Chem 7: 10/27/18 07:04 10/27/18 07:04 Labs: Abnormal Lab Results - Last 24 Hours (Table) 10/26/18 10/26/18 10/26/18 Range/Units 07:13 11:43 15:13 Chloride 97 L (98-107) mmol/L Carbon Dioxide 34 H (22-30) mmol/L BUN 28 H (9-20) mg/dL Creatinine 0.49 L (0.66-1.25) mg/dL Glucose 179 H (74-99) mg/dL POC Glucose (mg/dL) 135 H 136 H (75-99) mg/dL 10/26/18 10/26/18 Range/Units 17:28 20:37 Chloride (98-107) mmol/L Carbon Dioxide (22-30) mmol/L BUN (9-20) mg/dL Creatinine (0.66-1.25) mg/dL Glucose (74-99) mg/dL POC Glucose (mg/dL) 136 H 204 H (75-99) mg/dL Microbiology - Last 24 Hours (Table) 10/24/18 22:55 Blood Culture - Preliminary Blood No Growth after 24 hours Assessment and Plan Assessment: Bibasilar infiltrates due to aspiration pneumonia. Acute hypoxic respiratory failure on admission. Atrial fibrillation with rapid regular rate Paroxysmal fibrillation history not on any anticoagulation currently at home. 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 Patient will be continued on antibiotics in the form of ceftriaxone and Flagyl was started. Changed to meropenem. Continue with duo nebs and IV steroids. Pulmonary is following.. Continue with home medications and further recommendations based on the clinical course. Prognosis is guarded with multiple medical problems and comorbid conditions. PEG tube feeding. Aspiration precautions. Time with Patient: Greater than 30
--- NOTE | 2018-10-27 23:33 | P.PN ---
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 Patient says that she did have a coughing spell and aspirated. Otherwise denied any fever or chills. Denied any chest pain. No nausea vomiting or diarrhea. No sputum production. Patient thought he has aspirated and came to ER for evaluation. Otherwise no history of heart problems. No leg swelling. Chest x-ray showed bibasilar infiltrate/consolidation. Correlate clinically for intermittently/infectious process. Possible trace pleural effusions. No leukocytosis. EKG showed normal sinus rhythm Patient is tachycardic, tachypneic and hypoxic on admission. 10/26/2018 Patient says that she did have some improvement in the breathing status. Antibiotics have been changed to meropenem as per previous cultures. Pulmonary has seen the patient. Otherwise patient developed atrial fibrillation with RVR. Patient will be transferred to telemetry unit. Started on Cardizem drip and heparin drip will be started. A bernard does have history of paroxysmal atrial fibrillation currently not on any anticoagulation at home. No further nausea vomiting or abdominal pain. No fever no chills. Tolerating PEG tube feeding. Denied any coughing spells again. 10/27/2018 Patient denied any complaints of chest pain or worsening shortness of breath. Heart rate is better controlled. Patient is being continued on heparin drip and Cardizem drip. Her verapamil was started as per cardiology recommendations. Currently on antibiotics in the form of meropenem. Continued on IV steroids and breathing treatments. Pulmonary is following as well. No fever no chills. No nausea vomiting or abdominal pain. Patient did have a coughing spell again this morning. Denied any aspiration.. Current medications reviewed. Objective - Vital Signs Vital signs: Vital Signs Temp 97.9 F 10/27/18 21:45 Pulse 99 10/27/18 21:46 Resp 18 10/27/18 21:45 BP 157/99 10/27/18 21:45 Pulse Ox 93 L 10/27/18 21:45 Intake & Output 04/10/1210/27/18 10/28/18 06:59 18:59 06:59 Intake Total 10.583 245.116 Output Total 300 500 100 Balance -289.417 -254.884 -100 Weight 69.2 kg Intake: Intake, IV Titration 10.583 245.116 Amount Diltiazem 125 mg In 10.583 114.417 Sodium Chloride 0.9% 100 ml @ 5 MG/HR 5 mls/hr IV .Q24H [facility] Rx#:[id number] Heparin Sod,Pork in 0.45% 130.699 NaCl 25,000 unit In 0.45 % NaCl 1 250ml.bag @ 12 UNITS/KG/HR 8.056 mls/hr IV .Q24H [facility] Rx#: [id number] Output: Urine 300 500 100 Other: Voiding Method Toilet Toilet Urinal Urinal # Voids 3 # Bowel Movements 1 - Exam PHYSICAL EXAMINATION: Patient is lying in the bed comfortably, no acute distress, awake alert and oriented.. HEENT: Normocephalic. Neck is supple. Pupils reactive. Nostrils clear. Oral cavity is moist. Ears reveal no drainage. Neck reveals no JVD, carotid bruits, or thyromegaly. CHEST EXAMINATION: Trachea is central. Symmetrical expansion. Bibasilar diminished air entry. Scattered rhonchi. Otherwise Lung perrin clear to au scultation and percussion. CARDIAC: Normal S1, S2 with no gallops. No murmurs ABDOMEN: Soft. PEG tube is in place. Bowel sounds normal. No organomegaly. No abdominal bruits. Extremities: reveal no edema. No clubbing or cyanosis Neurologically awake, alert, oriented x3 . Generalized muscle weakness and atrophy. No focal deficits noted Skin: No rash or skin lesions. Psychiatric: Coperative. Nonsuicidal Musculoskeletal: No joint swelling or deformity. Normal range of motion. - Labs CBC & Chem 7: 10/27/18 07:04 10/27/18 07:04 Labs: Abnormal Lab Results - Last 24 Hours (Table) 10/27/18 10/27/18 10/27/18 Range/Units 06:15 07:04 07:04 RBC 3.70 L (4.30-5.90) m/uL Hgb 12.2 L (13.0-17.5) gm/dL Hct 36.8 L (39.0-53.0) % Lymphocytes # 0.6 L (1.0-4.8) k/uL APTT (22.0-30.0) sec Carbon Dioxide 37 H (22-30) mmol/L BUN 28 H (9-20) mg/dL Creatinine 0.42 L (0.66-1.25) mg/dL Glucose 125 H (74-99) mg/dL POC Glucose (mg/dL) 135 H (75-99) mg/dL 10/27/18 10/27/18 10/27/18 Range/Units 07:04 11:49 16:21 RBC (4.30-5.90) m/uL Hgb (13.0-17.5) gm/dL Hct (39.0-53.0) % Lymphocytes # (1.0-4.8) k/uL APTT 33.6 H (22.0-30.0) sec Carbon Dioxide (22-30) mmol/L BUN (9-20) mg/dL Creatinine (0.66-1.25) mg/dL Glucose (74-99) mg/dL POC Glucose (mg/dL) 138 H 175 H (75-99) mg/dL 10/27/18 10/27/18 Range/Units 20:19 21:57 RBC (4.30-5.90) m/uL Hgb (13.0-17.5) gm/dL Hct (39.0-53.0) % Lymphocytes # (1.0-4.8) k/uL APTT 40.2 H (22.0-30.0) sec Carbon Dioxide (22-30) mmol/L BUN (9-20) mg/dL Creatinine (0.66-1.25) mg/dL Glucose (74-99) mg/dL POC Glucose (mg/dL) 133 H (75-99) mg/dL Microbiology - Last 24 Hours (Table) 10/24/18 22:55 Blood Culture - Preliminary Blood No Growth after 48 hours Assessment and Plan Assessment: Bibasilar infiltrates due to aspiration pneumonia. Acute hypoxic respiratory failure on admission. Atrial fibrillation with rapid regular rate Paroxysmal fibrillation history not on any anticoagulation currently at home. Dysphagia, currently on PEG tube feeding Facial onset sensory motor neuropathy with generalized muscle atrophy and weakness Rheumatoid arthritis History of CVA/TIA COPD not on home oxygen GERD Vocal cord paralysis history Multiple myeloma Anxiety Previous history of smoking DVT prophylaxis Plan: Patient will be continued on Cardizem drip and heparin drip. Patient was on antibiotics in the form of ceftriaxone and Flagyl. Changed to meropenem. Continue with duo nebs and IV steroids. Pulmonary is following.. Continue with home medications and further recommendations based on the clinical course. Prognosis is guarded with multiple medical problems and comorbid conditions. PEG tube feeding. Aspiration precautions. Time with Patient: Greater than 30
[2018-10-28 05:56] LABS: Glucose,Whole Blood 138 mg/dL (75-99)
[2018-10-28] MEDS: INSULIN ASPART (NovoLOG) 100 UNIT/ML VIAL SQ SCH ×4 (06:45→22:14)
[2018-10-28] MEDS: methylPREDNISolone SOD SUCCI 125 MG/2 ML VIAL IV SCH ×4 (06:45→23:33)
[2018-10-28] MEDS: SYMBICORT 160-4.5 MCG INHALER INHALATION SCH ×2 (07:37→19:34)
[2018-10-28] MEDS: IPRATROPIUM-ALBUTEROL 3 ML NEB INHALATION SCH ×4 (07:37→19:34)
[2018-10-28] MEDS: DILTIAZEM 125 MG in SODIUM CHLORIDE 0.9% 100 ML IV SCH (08:50)
[2018-10-28] MEDS: PANTOPRAZOLE SODIUM 40 MG GRANULE PKT PEG/G-TUBE SCH (08:55)
[2018-10-28] MEDS: ASPIRIN 81 MG PEG/G-TUBE SCH (08:55)
[2018-10-28] MEDS: VERAPAMIL SR 180 MG TABLET.ER PO SCH ×2 (08:55→10:41)
[2018-10-28] MEDS: MEROPENEM 1 GM in SODIUM CHLORIDE 0.9% 100 ML IVPB SCH ×3 (09:12→23:33)
[2018-10-28 11:27] LABS: Glucose,Whole Blood 186 mg/dL (75-99)
[2018-10-28] MEDS: VERAPAMIL SR 240 MG TABLET.ER PO SCH (12:00)
--- NOTE | 2018-10-28 14:44 | P.PN ---
Subjective Progress Note Date: 10/28/18 Is a 73-year-old female who presented to the hospital with symptoms of worsening dyspnea, currently receiving treatment for pneumonia. Patient also has atrial fibrillation, continues to be in A. fib today with rate under adequate control in the 80s, blood pressure 137/90. Recent echo showed normal LV function. We'll discontinue the IV heparin today and start the patient on Eliquis. Follow along with you now on an as-needed basis only, please don't hesitate to call with any questions. Objective - Vital Signs Vital signs: Vital Signs Temp 97.1 F L 10/28/18 11:55 Pulse 90 10/28/18 11:55 Resp 18 10/28/18 11:55 BP 137/91 10/28/18 11:55 Pulse Ox 95 10/28/18 11:55 Intake & Output 10/27/18 10/28/18 10/28/18 18:59 06:59 18:59 Intake Total 245.116 44.129 215.416 Output Total 500 600 Balance -254.884 -555.871 215.416 Weight 70.4 kg Intake: Intake, IV Titration 245.116 44.129 215.416 Amount Diltiazem 125 mg In 114.417 124.833 Sodium Chloride 0.9% 100 ml @ 5 MG/HR 5 mls/hr IV .Q24H [facility] Rx#:[id number] Heparin Sod,Pork in 0.45% 130.699 44.129 90.583 NaCl 25,000 unit In 0.45 % NaCl 1 250ml.bag @ 12 UNITS/KG/HR 8.056 mls/hr IV .Q24H [facility] Rx#: [id number] Output: Urine 500 600 Other: Voiding Method Toilet Toilet Urinal Urinal # Voids 3 1 # Bowel Movements 1 1 - Exam HEAD: Normocephalic/atraumatic. EYES: Normal reaction of pupils, equal size. Conjunctiva pink, sclera white. NOSE: Clear with pink turbinates. THROAT: No erythema or exudates. NECK: No masses, no JVD, no thyroid enlargement, no adenopathy. CHEST: No chest wall deformity. Symmetrical expansion. LUNGS: Equal air entry with scattered crackles and rhonchi CVS: Regular rate and rhythm, normal S1 and S2, no gallops, no murmurs, no rubs ABDOMEN: Soft, nontender. No hepatosplenomegaly, normal bowel sounds, no guarding or rigidity.PEG tube in place Tube feeding infusing EXTREMITIES: No clubbing, no edema, no cyanosis, 2+ pulses and upper and lower extremities. MUSCULOSKELETAL: Muscle strength and tone normal. SPINE: No scoliosis or deformity SKIN: No rashes CENTRAL NERVOUS SYSTEM: Alert and oriented -3. No focal deficits, tone is normal in all 4 extremities. PSYCHIATRIC: Alert and oriented -3. Appropriate affect. Intact judgment and insight. - Labs CBC & Chem 7: 10/27/18 07:04 10/27/18 07:04 Labs: Abnormal Lab Results - Last 24 Hours (Table) 10/27/18 10/27/18 10/27/18 Range/Units 16:21 20:19 21:57 APTT 40.2 H (22.0-30.0) sec POC Glucose (mg/dL) 175 H 133 H (75-99) mg/dL 10/28/18 10/28/18 10/28/18 Range/Units 05:55 06:50 11:16 APTT 43.6 H (22.0-30.0) sec POC Glucose (mg/dL) 138 H 186 H (75-99) mg/dL Microbiology - Last 24 Hours (Table) 10/24/18 22:55 Blood Culture - Preliminary Blood No Growth after 72 hours Assessment and Plan Plan: assessment and plan: #1. Acute on chronic hypoxemic respiratory failure related to bibasilar pneum onia, left greater than right, possibly related to aspiration #2. severe dyspnea, coughing spells, bronchospasm related to the above, improved #3. acute COPD exacerbation related to aspiration #4. Chronic dysphagia and aspiration due to vocal cord paralysis related to history of CVA. Chronic PEG tube in place #5. Previous episodes of aspiration pneumonia #6. Hyponatremia, patient has a degree of chronic hyponatremia, usually serum sodium ranges from 129 2-134 #7. Chronic obstructive pulmonary disease with chronic hypoxemic respiratory failure #8. History of multiple myeloma #9. GERD/reflux, history of Phillips's esophagus #10. History of rheumatoid arthritis #11 paroxysmal atrial fibrillation Plan We will discontinue the IV heparin and start the patient on Eliquis today. Follow along with you now on an as-needed basis only, please don't hesitate to call with any questions. DNP note has been reviewed, I agree with a documented findings and plan of care. Patient was seen and examined.
[2018-10-28] MEDS: APIXABAN 5 MG TAB PO SCH ×2 (16:07→22:15)
[2018-10-28 16:23] LABS: Glucose,Whole Blood 121 mg/dL (75-99)
[2018-10-28 20:50] LABS: Glucose,Whole Blood 165 mg/dL (75-99)
[2018-10-28] MEDS: guaiFENesin 600 MG TABLET.ER PO SCH (22:15)
[2018-10-29] MEDS: IPRATROPIUM-ALBUTEROL 3 ML NEB INHALATION PRN (05:29)
[2018-10-29 05:45] LABS: Glucose,Whole Blood 130 mg/dL (75-99)
[2018-10-29] MEDS: INSULIN ASPART (NovoLOG) 100 UNIT/ML VIAL SQ SCH ×4 (06:27→22:06)
[2018-10-29] MEDS: methylPREDNISolone SOD SUCCI 125 MG/2 ML VIAL IV SCH ×2 (06:32→12:55)
[2018-10-29] MEDS: IPRATROPIUM-ALBUTEROL 3 ML NEB INHALATION SCH ×4 (07:06→19:36)
[2018-10-29] MEDS: SYMBICORT 160-4.5 MCG INHALER INHALATION SCH ×2 (07:06→19:40)
[2018-10-29] MEDS ORDERED: VERAPAMIL SR 240 MG TABLET.ER PO SCH (09:00)
[2018-10-29] MEDS: MEROPENEM 1 GM in SODIUM CHLORIDE 0.9% 100 ML IVPB SCH ×3 (09:07→23:17)
[2018-10-29] MEDS: ASPIRIN 81 MG PEG/G-TUBE SCH (09:13)
[2018-10-29] MEDS: PANTOPRAZOLE SODIUM 40 MG GRANULE PKT PEG/G-TUBE SCH (09:13)
[2018-10-29] MEDS: APIXABAN 5 MG TAB PO SCH ×2 (09:13→22:06)
[2018-10-29] MEDS: VERAPAMIL SR 240 MG TABLET.ER PO SCH (09:14)
[2018-10-29] MEDS: guaiFENesin 600 MG TABLET.ER PO SCH (09:14)
[2018-10-29 11:33] LABS: Glucose,Whole Blood 149 mg/dL (75-99)
[2018-10-29 16:43] LABS: Glucose,Whole Blood 186 mg/dL (75-99)
[2018-10-29] MEDS: methylPREDNISolone SOD SUCCI 40 MG/ML 1 ML VIAL IV SCH ×2 (17:05→23:17)
[2018-10-29] MEDS ORDERED: MD COMMUNICATION TO PHARMACY 1 EACH MISC PO PRN (17:58)
[2018-10-29] MEDS ORDERED: [UNRECOGNIZED DRUG - OTHER] PO PRN (18:09)
[2018-10-29 20:56] LABS: Glucose,Whole Blood 172 mg/dL (75-99)
[2018-10-30] MEDS: INSULIN ASPART (NovoLOG) 100 UNIT/ML VIAL SQ SCH ×4 (06:20→21:48)
[2018-10-30 06:33] LABS: Glucose,Whole Blood 123 mg/dL (75-99)
[2018-10-30] MEDS: PANTOPRAZOLE SODIUM 40 MG GRANULE PKT PEG/G-TUBE SCH (06:39)
[2018-10-30] MEDS: SYMBICORT 160-4.5 MCG INHALER INHALATION SCH ×2 (06:58→21:44)
[2018-10-30] MEDS: IPRATROPIUM-ALBUTEROL 3 ML NEB INHALATION SCH ×4 (06:58→21:44)
[2018-10-30] MEDS: VERAPAMIL SR 240 MG TABLET.ER PO SCH (10:17)
[2018-10-30] MEDS: MEROPENEM 1 GM in SODIUM CHLORIDE 0.9% 100 ML IVPB SCH ×3 (10:18→23:15)
[2018-10-30] MEDS: APIXABAN 5 MG TAB PO SCH ×2 (10:18→21:48)
[2018-10-30] MEDS: ASPIRIN 81 MG PEG/G-TUBE SCH (10:18)
[2018-10-30] MEDS: methylPREDNISolone SOD SUCCI 40 MG/ML 1 ML VIAL IV SCH ×3 (10:18→23:14)
[2018-10-30 11:59] LABS: Glucose,Whole Blood 143 mg/dL (75-99)
--- NOTE | 2018-10-30 12:48 | P.PN ---
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 Patient says that she did have a coughing spell and aspirated. Otherwise denied any fever or chills. Denied any chest pain. No nausea vomiting or diarrhea. No sputum production. Patient thought he has aspirated and came to ER for evaluation. Otherwise no history of heart problems. No leg swelling. Chest x-ray showed bibasilar infiltrate/consolidation. Correlate clinically for intermittently/infectious process. Possible trace pleural effusions. No leukocytosis. EKG showed normal sinus rhythm Patient is tachycardic, tachypneic and hypoxic on admission. 10/26/2018 Patient says that she did have some improvement in the breathing status. Antibiotics have been changed to meropenem as per previous cultures. Pulmonary has seen the patient. Otherwise patient developed atrial fibrillation with RVR. Patient will be transferred to telemetry unit. Started on Cardizem drip and heparin drip will be started. A bernard does have history of paroxysmal atrial fibrillation currently not on any anticoagulation at home. No further nausea vomiting or abdominal pain. No fever no chills. Tolerating PEG tube feeding. Denied any coughing spells again. 10/27/2018 Patient denied any complaints of chest pain or worsening shortness of breath. Heart rate is better controlled. Patient is being continued on heparin drip and Cardizem drip. Her verapamil was started as per cardiology recommendations. Currently on antibiotics in the form of meropenem. Continued on IV steroids and breathing treatments. Pulmonary is following as well. No fever no chills. No nausea vomiting or abdominal pain. Patient did have a coughing spell again this morning. Denied any aspiration.. 10/28/2018 Patient is still complaining of shortness of breath not back to baseline. Heart rate is better controlled. Heparin drip has been discontinued. Patient was started on liquids twice daily. Patient is being continued on breathing treatments and IV steroids and antibiotics in the form of meropenem. Pulmonary and cardiology is on board. Current medications reviewed. Objective - Vital Signs Vital signs: Vital Signs Temp 97.4 F L 10/28/18 20:12 Pulse 88 10/28/18 20:12 Resp 18 10/28/18 20:12 BP 133/66 10/28/18 20:12 Pulse Ox 94 L 10/28/18 20:12 Intake & Output 10/28/18 10/28/18 10/29/18 06:59 18:59 06:59 Intake Total 44.129 3095.416 Output Total 600 Balance -330.627 1528.416 Weight 70.4 kg 70.4 kg Intake: Intake, IV Titration 44.129 215.416 Amount Diltiazem 125 mg In 124.833 Sodium Chloride 0.9% 100 ml @ 5 MG/HR 5 mls/hr IV .Q24H [facility] Rx#:[id number] Heparin Sod,Pork in 0.45% 44.129 90.583 NaCl 25,000 unit In 0.45 % NaCl 1 250ml.bag @ 12 UNITS/KG/HR 8.056 mls/hr IV .Q24H [facility] Rx#: [id number] Tube Feeding 2880 Output: Urine 600 Other: Voiding Method Toilet Toilet Toilet Urinal Urinal Urinal # Voids 1 # Bowel Movements 1 - Exam PHYSICAL EXAMINATION: Patient is lying in the bed comfortably, no acute distress, awake alert and oriented.. HEENT: Normocephalic. Neck is supple. Pupils reactive. Nostrils clear. Oral cavity is moist. Ears reveal no drainage. Neck reveals no JVD, carotid bruits, or thyromegaly. CHEST EXAMINATION: Trachea is central. Symmetrical expansion. Bibasilar diminished air entry. Scattered rhonchi. Bibasilar crackles. No wheezing.. CARDIAC: Normal S1, S2 with no gallops. No murmurs ABDOMEN: Soft. PEG tube is in place. Bowel sounds normal. No organomegaly. No abdominal bruits. Extremities: reveal no edema. No clubbing or cyanosis Neurologically awake, alert, oriented x3 . Generalized muscle weakness and atrophy. No focal deficits noted Skin: No rash or skin lesions. Psychiatric: Coperative. Nonsuicidal Musculoskeletal: No joint swelling or deformity. Normal range of motion. - Labs CBC & Chem 7: 10/27/18 07:04 10/27/18 07:04 Labs: Abnormal Lab Results - Last 24 Hours (Table) 10/27/18 10/28/18 10/28/18 Range/Units 21:57 05:55 06:50 APTT 40.2 H 43.6 H (22.0-30.0) sec POC Glucose (mg/dL) 138 H (75-99) mg/dL 10/28/18 10/28/18 10/28/18 Range/Units 11:16 16:19 20:48 APTT (22.0-30.0) sec POC Glucose (mg/dL) 186 H 121 H 165 H (75-99) mg/dL Microbiology - Last 24 Hours (Table) 10/24/18 22:55 Blood Culture - Preliminary Blood No Growth after 72 hours Assessment and Plan Assessment: Bibasilar infiltrates due to aspiration pneumonia. Acute hypoxic respiratory failure on admission. Atrial fibrillation with rapid regular rate. Rate controlled. Started on anticoagulation with liquids. Paroxysmal fibrillation history not on any anticoagulation currently at home. 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 Continue with verapamil and liquids.. Patient was on antibiotics in the form of ceftriaxone and Flagyl. Changed to meropenem. Continue with duo nebs and IV steroids. Pulmonary is following.. Continue with home medications and further recommendations based on the clinical course. Prognosis is guarded with mu ltiple medical problems and comorbid conditions. PEG tube feeding. Aspiration precautions. Time with Patient: Greater than 30
--- NOTE | 2018-10-30 12:49 | P.PN ---
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 Patient says that she did have a coughing spell and aspirated. Otherwise denied any fever or chills. Denied any chest pain. No nausea vomiting or diarrhea. No sputum production. Patient thought he has aspirated and came to ER for evaluation. Otherwise no history of heart problems. No leg swelling. Chest x-ray showed bibasilar infiltrate/consolidation. Correlate clinically for intermittently/infectious process. Possible trace pleural effusions. No leukocytosis. EKG showed normal sinus rhythm Patient is tachycardic, tachypneic and hypoxic on admission. 10/26/2018 Patient says that she did have some improvement in the breathing status. Antibiotics have been changed to meropenem as per previous cultures. Pulmonary has seen the patient. Otherwise patient developed atrial fibrillation with RVR. Patient will be transferred to telemetry unit. Started on Cardizem drip and heparin drip will be started. A bernard does have history of paroxysmal atrial fibrillation currently not on any anticoagulation at home. No further nausea vomiting or abdominal pain. No fever no chills. Tolerating PEG tube feeding. Denied any coughing spells again. 10/27/2018 Patient denied any complaints of chest pain or worsening shortness of breath. Heart rate is better controlled. Patient is being continued on heparin drip and Cardizem drip. Her verapamil was started as per cardiology recommendations. Currently on antibiotics in the form of meropenem. Continued on IV steroids and breathing treatments. Pulmonary is following as well. No fever no chills. No nausea vomiting or abdominal pain. Patient did have a coughing spell again this morning. Denied any aspiration.. 10/28/2018 Patient is still complaining of shortness of breath not back to baseline. Heart rate is better controlled. Heparin drip has been discontinued. Patient was started on liquids twice daily. Patient is being continued on breathing treatments and IV steroids and antibiotics in the form of meropenem. Pulmonary and cardiology is on board. 10/29/2018 Patient denied any complaints of chest pain. Shortness of breath is not at baseline. Otherwise heart rate is controlled and being continued on verapamil and liquids. Currently on antibiotics in the form of meropenem. Pulmonary is on board. No fever no chills. No headache or dizziness or lightheadedness. No nausea vomiting or abdominal pain or diarrhea. Current medications reviewed. Objective - Vital Signs Vital signs: Vital Signs Temp 97.3 F L 10/29/18 20:30 Pulse 97 10/29/18 20:30 Resp 17 10/29/18 20:30 BP 147/84 10/29/18 20:30 Pulse Ox 98 10/29/18 20:30 Intake & Output 10/29/18 10/29/18 10/30/18 06:59 18:59 06:59 Intake Total 2880 2880 Output Total 350 120 100 Balance 2530 2760 -100 Weight 69.5 kg Intake: Oral 0 Tube Feeding 2880 2880 Output: Urine 350 120 100 Other: Voiding Method Toilet Toilet Toilet Urinal Urinal Urinal # Voids 1 1 - Exam PHYSICAL EXAMINATION: Patient is lying in the bed comfortably, no acute distress, awake alert and oriented.. HEENT: Normocephalic. Neck is supple. Pupils reactive. Nostrils clear. Oral cavity is moist. Ears reveal no drainage. Neck reveals no JVD, carotid bruits, or thyromegaly. CHEST EXAMINATION: Trachea is central. Symmetrical expansion. Bibasilar diminished air entry. Scattered rhonchi. Bibasilar crackles. No wheezing.. CARDIAC: Normal S1, S2 with no gallops. No murmurs ABDOMEN: Soft. PEG tube is in place. Bowel sounds normal. No organomegaly. No abdominal bruits. Extremities: reveal no edema. No clubbing or cyanosis Neurologically awake, alert, oriented x3 . Generalized muscle weakness and atrophy. No focal deficits noted Skin: No rash or skin lesions. Psychiatric: Coperative. Nonsuicidal Musculoskeletal: No joint swelling or deformity. Normal range of motion. - Labs CBC & Chem 7: 10/27/18 07:04 10/27/18 07:04 Labs: Abnormal Lab Results - Last 24 Hours (Table) 10/29/18 10/29/18 10/29/18 Range/Units 05:42 11:29 16:35 POC Glucose (mg/dL) 130 H 149 H 186 H (75-99) mg/dL 10/29/18 Range/Units 20:24 POC Glucose (mg/dL) 172 H (75-99) mg/dL Microbiology - Last 24 Hours (Table) 10/24/18 22:55 Blood Culture - Preliminary Blood No Growth after 96 hours Assessment and Plan Assessment: Bibasilar infiltrates due to aspiration pneumonia. Acute hypoxic respiratory failure on admission. Atrial fibrillation with rapid regular rate. Rate controlled. Started on anticoagulation with liquids. Paroxysmal fibrillation history not on any anticoagulation currently at home. 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 Continue with verapamil and liquids.. Patient was on antibiotics in the form of ceftriaxone and Flagyl. Changed to meropenem. Continue with duo nebs and IV steroids. Pulmonary is following.. Continue with home medications and further recommendations based on the clinical course. Prognosis is guarded with multiple medical problems and comorbid conditions. PEG tube feeding. Aspiration precautions. Time with Patient: Greater than 30
--- NOTE | 2018-10-30 13:10 | XR ---
EXAMINATION TYPE: XR chest 1V DATE OF EXAM: 10/30/2018 HISTORY: Pneumonia. REFERENCE: Previous study dated 10/26/2018. FINDINGS: There is worsening right-sided airspace disease. There is improving atelectasis on the left . Heart size is obscured. I suspect a right-sided effusion. IMPRESSION: WORSENING RIGHT-SIDED PNEUMONIA.
[2018-10-30 14:15] LABS: Basophils % (A) 0 %; Eosinophils % (A) 0 %; HCT 37.6 % (39.0-53.0); HGB 12.5 gm/dL (13.0-17.5); Lymphocytes # (A) 0.4 k/uL (1.0-4.8); Lymphocytes % (A) 5 %; MCHC 33.3 g/dL (31.0-37.0); MCV 96.1 fL (80.0-100.0); Mean Platelet Volume 11.1; Monocytes # (A) 0.5 k/uL (0-1.0); Monocytes % (A) 6 %; Neutrophils # (A) 6.6 k/uL (1.3-7.7); Neutrophils % (A) 87 %; Platelet Count 158 k/uL (150-450); RBC 3.91 m/uL (4.30-5.90); RDW 15.8 % (11.5-15.5); WBC 7.6 k/uL (3.8-10.6)
[2018-10-30 14:37] LABS: Blood Urea Nitrogen 34 mg/dL (9-20); Calcium 9.2 mg/dL (8.4-10.2); Chloride 92 mmol/L (98-107); Glucose 112 mg/dL (74-99); Potassium 5.2 mmol/L (3.5-5.1); Sodium 137 mmol/L (137-145)
[2018-10-30 14:45] LABS: Anion Gap 3 mmol/L
[2018-10-30 14:46] LABS: Carbon Dioxide 42 mmol/L (22-30)
[2018-10-30 17:00] LABS: Glucose,Whole Blood 153 mg/dL (75-99)
[2018-10-30 20:30] LABS: Glucose,Whole Blood 162 mg/dL (75-99)
[2018-10-30] MEDS: ZOLPIDEM 5 MG TAB PEG/G-TUBE PRN (23:14)
--- NOTE | 2018-10-31 01:25 | P.PN ---
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 Patient says that she did have a coughing spell and aspirated. Otherwise denied any fever or chills. Denied any chest pain. No nausea vomiting or diarrhea. No sputum production. Patient thought he has aspirated and came to ER for evaluation. Otherwise no history of heart problems. No leg swelling. Chest x-ray showed bibasilar infiltrate/consolidation. Correlate clinically for intermittently/infectious process. Possible trace pleural effusions. No leukocytosis. EKG showed normal sinus rhythm Patient is tachycardic, tachypneic and hypoxic on admission. 10/26/2018 Patient says that she did have some improvement in the breathing status. Antibiotics have been changed to meropenem as per previous cultures. Pulmonary has seen the patient. Otherwise patient developed atrial fibrillation with RVR. Patient will be transferred to telemetry unit. Started on Cardizem drip and heparin drip will be started. A bernard does have history of paroxysmal atrial fibrillation currently not on any anticoagulation at home. No further nausea vomiting or abdominal pain. No fever no chills. Tolerating PEG tube feeding. Denied any coughing spells again. 10/27/2018 Patient denied any complaints of chest pain or worsening shortness of breath. Heart rate is better controlled. Patient is being continued on heparin drip and Cardizem drip. Her verapamil was started as per cardiology recommendations. Currently on antibiotics in the form of meropenem. Continued on IV steroids and breathing treatments. Pulmonary is following as well. No fever no chills. No nausea vomiting or abdominal pain. Patient did have a coughing spell again this morning. Denied any aspiration.. 10/28/2018 Patient is still complaining of shortness of breath not back to baseline. Heart rate is better controlled. Heparin drip has been discontinued. Patient was started on liquids twice daily. Patient is being continued on breathing treatments and IV steroids and antibiotics in the form of meropenem. Pulmonary and cardiology is on board. 10/29/2018 Patient denied any complaints of chest pain. Shortness of breath is not at baseline. Otherwise heart rate is controlled and being continued on verapamil and liquids. Currently on antibiotics in the form of meropenem. Pulmonary is on board. No fever no chills. No headache or dizziness or lightheadedness. No nausea vomiting or abdominal pain or diarrhea. 10/30/2018 Patient is still having shortness of breath at baseline. Currently on breathing treatments and IV steroids along with antibiotics in the form of meropenem. Repeat chest x-ray was ordered. Pulmonary was contacted for further recommendations. No fever no chills. No leukocytosis. Patient does have poor respiratory effort secondary to generalized weakness. Continue to follow closely. No commerce of chest pain. Current medications reviewed. Objective - Vital Signs Vital signs: Vital Signs Temp 98.1 F 10/30/18 15:50 Pulse 82 10/30/18 21:52 Resp 18 10/30/18 15:50 BP 149/96 10/30/18 15:50 Pulse Ox 99 10/30/18 16:14 Intake & Output 10/30/18 10/30/18 10/31/18 06:59 18:59 06:59 Intake Total 1440 Output Total 100 400 250 Balance -100 1040 -250 Weight 69 kg Intake: Tube Feeding 1440 Output: Urine 100 400 250 Other: Voiding Method Toilet Urinal # Voids 1 1 # Bowel Movements 1 - Exam PHYSICAL EXAMINATION: Patient is lying in the bed comfortably, no acute distress, awake alert and oriented.. HEENT: Normocephalic. Neck is supple. Pupils reactive. Nostrils clear. Oral cavity is moist. Ears reveal no drainage. Neck reveals no JVD, carotid bruits, or thyromegaly. CHEST EXAMINATION: Trachea is central. Symmetrical expansion. Bibasilar dimini shed air entry. Scattered rhonchi. Bibasilar crackles. No wheezing.. CARDIAC: Normal S1, S2 with no gallops. No murmurs ABDOMEN: Soft. PEG tube is in place. Bowel sounds normal. No organomegaly. No abdominal bruits. Extremities: reveal no edema. No clubbing or cyanosis Neurologically awake, alert, oriented x3 . Generalized muscle weakness and atrophy. No focal deficits noted Skin: No rash or skin lesions. Psychiatric: Coperative. Nonsuicidal Musculoskeletal: No joint swelling or deformity. Normal range of motion. - Labs CBC & Chem 7: 10/30/18 13:49 10/30/18 13:49 Labs: Abnormal Lab Results - Last 24 Hours (Table) 10/30/18 10/30/18 10/30/18 Range/Units :19 11:55 13:49 RBC 3.91 L (4.30-5.90) m/uL Hgb 12.5 L (13.0-17.5) gm/dL Hct 37.6 L (39.0-53.0) % RDW 15.8 H (11.5-15.5) % Lymphocytes # 0.4 L (1.0-4.8) k/uL Potassium (3.5-5.1) mmol/L Chloride (98-107) mmol/L Carbon Dioxide (22-30) mmol/L BUN (9-20) mg/dL Creatinine (0.66-1.25) mg/dL Glucose (74-99) mg/dL POC Glucose (mg/dL) 123 H 143 H (75-99) mg/dL 10/30/18 10/30/18 10/30/18 Range/Units 13:49 16:57 20:25 RBC (4.30-5.90) m/uL Hgb (13.0-17.5) gm/dL Hct (39.0-53.0) % RDW (11.5-15.5) % Lymphocytes # (1.0-4.8) k/uL Potassium 5.2 H (3.5-5.1) mmol/L Chloride 92 L (98-107) mmol/L Carbon Dioxide 42 H* (22-30) mmol/L BUN 34 H (9-20) mg/dL Creatinine 0.42 L (0.66-1.25) mg/dL Glucose 112 H (74-99) mg/dL POC Glucose (mg/dL) 153 H 162 H (75-99) mg/dL Microbiology - Last 24 Hours (Table) 10/24/18 22:55 Blood Culture - Preliminary Blood No Growth after 120 hours Assessment and Plan Assessment: Bibasilar infiltrates due to aspiration pneumonia. Acute hypoxic respiratory failure on admission. Atrial fibrillation with rapid regular rate. Rate controlled. Started on anticoagulation with liquids. Paroxysmal fibrillation history not on any anticoagulation currently at home. 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 Continue with verapamil and Eliquis.. Patient was on antibiotics in the form of ceftriaxone and Flagyl. Changed to meropenem. Continue with duo nebs and IV steroids. Pulmonary is following.. Continue with home medications and further recommendations based on the clinical course. Prognosis is guarded with multiple medical problems and comorbid conditions. PEG tube feeding. Aspiration precautions. Time with Patient: Greater than 30
[2018-10-31 05:46] LABS: Glucose,Whole Blood 111 mg/dL (75-99)
[2018-10-31] MEDS: INSULIN ASPART (NovoLOG) 100 UNIT/ML VIAL SQ SCH ×4 (06:11→21:54)
[2018-10-31] MEDS: PANTOPRAZOLE SODIUM 40 MG GRANULE PKT PEG/G-TUBE SCH (06:17)
[2018-10-31 07:08] LABS: Basophils % (A) 0 %; Eosinophils % (A) 0 %; HCT 40.3 % (39.0-53.0); HGB 13.2 gm/dL (13.0-17.5); Lymphocytes # (A) 0.8 k/uL (1.0-4.8); Lymphocytes % (A) 11 %; MCH 31.9 pg (25.0-35.0); MCHC 32.7 g/dL (31.0-37.0); MCV 97.6 fL (80.0-100.0); Macrocytosis Slight; Monocytes # (A) 0.5 k/uL (0-1.0); Monocytes % (A) 8 %; Neutrophils # (A) 5.3 k/uL (1.3-7.7); Neutrophils % (A) 79 %; Platelet Count 170 k/uL (150-450); RBC 4.13 m/uL (4.30-5.90); RDW 15.7 % (11.5-15.5); WBC 6.7 k/uL (3.8-10.6)
[2018-10-31 07:17] LABS: Blood Urea Nitrogen 32 mg/dL (9-20); Calcium 9.3 mg/dL (8.4-10.2); Chloride 89 mmol/L (98-107); Glucose 102 mg/dL (74-99); Potassium 5.3 mmol/L (3.5-5.1); Sodium 136 mmol/L (137-145)
[2018-10-31 07:24] LABS: Anion Gap 6 mmol/L
[2018-10-31 08:06] LABS: Carbon Dioxide 41 mmol/L (22-30)
[2018-10-31] MEDS: SYMBICORT 160-4.5 MCG INHALER INHALATION SCH ×2 (08:45→20:49)
[2018-10-31] MEDS: IPRATROPIUM-ALBUTEROL 3 ML NEB INHALATION SCH ×4 (08:45→20:49)
[2018-10-31] MEDS: VERAPAMIL SR 240 MG TABLET.ER PO SCH (09:50)
[2018-10-31] MEDS: ASPIRIN 81 MG PEG/G-TUBE SCH (09:50)
[2018-10-31] MEDS: MEROPENEM 1 GM in SODIUM CHLORIDE 0.9% 100 ML IVPB SCH ×3 (09:50→23:40)
[2018-10-31] MEDS: methylPREDNISolone SOD SUCCI 40 MG/ML 1 ML VIAL IV SCH ×3 (09:51→23:40)
[2018-10-31] MEDS: APIXABAN 5 MG TAB PO SCH ×2 (09:51→20:23)
[2018-10-31 11:29] LABS: Glucose,Whole Blood 123 mg/dL (75-99)
[2018-10-31 16:10] LABS: Glucose,Whole Blood 159 mg/dL (75-99)
[2018-10-31] MEDS ORDERED: DEXTROSE 10% IN WATER 500 ML in EMPTY BAG 1 BAG IV SCH (18:00)
[2018-10-31 21:20] LABS: Glucose,Whole Blood 152 mg/dL (75-99)
[2018-10-31] MEDS: ZOLPIDEM 5 MG TAB PEG/G-TUBE PRN (21:48)
--- NOTE | 2018-11-01 00:18 | P.PN ---
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 Patient says that she did have a coughing spell and aspirated. Otherwise denied any fever or chills. Denied any chest pain. No nausea vomiting or diarrhea. No sputum production. Patient thought he has aspirated and came to ER for evaluation. Otherwise no history of heart problems. No leg swelling. Chest x-ray showed bibasilar infiltrate/consolidation. Correlate clinically for intermittently/infectious process. Possible trace pleural effusions. No leukocytosis. EKG showed normal sinus rhythm Patient is tachycardic, tachypneic and hypoxic on admission. 10/26/2018 Patient says that she did have some improvement in the breathing status. Antibiotics have been changed to meropenem as per previous cultures. Pulmonary has seen the patient. Otherwise patient developed atrial fibrillation with RVR. Patient will be transferred to telemetry unit. Started on Cardizem drip and heparin drip will be started. A bernard does have history of paroxysmal atrial fibrillation currently not on any anticoagulation at home. No further nausea vomiting or abdominal pain. No fever no chills. Tolerating PEG tube feeding. Denied any coughing spells again. 10/27/2018 Patient denied any complaints of chest pain or worsening shortness of breath. Heart rate is better controlled. Patient is being continued on heparin drip and Cardizem drip. Her verapamil was started as per cardiology recommendations. Currently on antibiotics in the form of meropenem. Continued on IV steroids and breathing treatments. Pulmonary is following as well. No fever no chills. No nausea vomiting or abdominal pain. Patient did have a coughing spell again this morning. Denied any aspiration.. 10/28/2018 Patient is still complaining of shortness of breath not back to baseline. Heart rate is better controlled. Heparin drip has been discontinued. Patient was started on liquids twice daily. Patient is being continued on breathing treatments and IV steroids and antibiotics in the form of meropenem. Pulmonary and cardiology is on board. 10/29/2018 Patient denied any complaints of chest pain. Shortness of breath is not at baseline. Otherwise heart rate is controlled and being continued on verapamil and liquids. Currently on antibiotics in the form of meropenem. Pulmonary is on board. No fever no chills. No headache or dizziness or lightheadedness. No nausea vomiting or abdominal pain or diarrhea. 10/30/2018 Patient is still having shortness of breath at baseline. Currently on breathing treatments and IV steroids along with antibiotics in the form of meropenem. Repeat chest x-ray was ordered. Pulmonary was contacted for further recommendations. No fever no chills. No leukocytosis. Patient does have poor respiratory effort secondary to generalized weakness. Continue to follow closely. No commerce of chest pain. 10/31/2018 Patient says that she is feeling better today. Repeat chest x-ray yesterday showed worsening right lower lobe pneumonia. Patient is being converted on antibiotics in the form of meropenem. ID will be consulted. Patient was encouraged with the breathing and respiratory effort. Anticipate discharge with final antibiotic recommendations. Current medications reviewed. Objective - Vital Signs Vital signs: Vital Signs Temp 96.4 F L 10/31/18 16:10 Pulse 82 10/31/18 17:04 Resp 18 10/31/18 16:10 BP 137/99 10/31/18 16:10 Pulse Ox 97 10/31/18 16:10 Intake & Output 10/31/18 10/31/18 11/01/18 06:59 18:59 06:59 Output Total 250 Balance -250 Weight 73.4 kg 73.4 kg Output: Urine 250 Other: Voiding Method Toilet Urinal - Exam PHYSICAL EXAMINATION: Patient is lying in the bed comfortably, no acute distress, awake alert and oriented.. HEENT: Normocephalic. Neck is supple. Pupils reactive. Nostrils clear. Oral cavity is moist. Ears reveal no drainage. Neck reveals no JVD, carotid bruits, or thyromegaly. CHEST EXAMINATION: Trachea is central. Symmetrical expansion. Bibasilar diminished air entry. Scattered rhonchi. Bibasilar crackles. No wheezing.. CARDIAC: Normal S1, S2 with no gallops. No murmurs ABDOMEN: Soft. PEG tube is in place. Bowel sounds normal. No organomegaly. No abdominal bruits. Extremities: reveal no edema. No clubbing or cyanosis Neurologically awake, alert, oriented x3 . Generalized muscle weakness and atro phy. No focal deficits noted Skin: No rash or skin lesions. Psychiatric: Coperative. Nonsuicidal Musculoskeletal: No joint swelling or deformity. Normal range of motion. - Labs CBC & Chem 7: 10/31/18 05:57 10/31/18 05:57 Labs: Abnormal Lab Results - Last 24 Hours (Table) 10/30/18 10/31/18 10/31/18 Range/Units 20:25 05:45 05:57 RBC 4.13 L (4.30-5.90) m/uL RDW 15.7 H (11.5-15.5) % Lymphocytes # 0.8 L (1.0-4.8) k/uL Sodium (137-145) mmol/L Potassium (3.5-5.1) mmol/L Chloride (98-107) mmol/L Carbon Dioxide (22-30) mmol/L BUN (9-20) mg/dL Creatinine (0.66-1.25) mg/dL Glucose (74-99) mg/dL POC Glucose (mg/dL) 162 H 111 H (75-99) mg/dL 10/31/18 10/31/18 10/31/18 Range/Units 05:57 11:27 16:08 RBC (4.30-5.90) m/uL RDW (11.5-15.5) % Lymphocytes # (1.0-4.8) k/uL Sodium 136 L (137-145) mmol/L Potassium 5.3 H (3.5-5.1) mmol/L Chloride 89 L (98-107) mmol/L Carbon Dioxide 41 H* (22-30) mmol/L BUN 32 H (9-20) mg/dL Creatinine 0.44 L (0.66-1.25) mg/dL Glucose 102 H (74-99) mg/dL POC Glucose (mg/dL) 123 H 159 H (75-99) mg/dL Microbiology - Last 24 Hours (Table) 10/24/18 22:55 Blood Culture - Final Blood No Growth after 144 hours Assessment and Plan Assessment: Bibasilar infiltrates due to aspiration pneumonia. Acute hypoxic respiratory failure on admission. Saturating well on nausea cannula now. Atrial fibrillation with rapid regular rate. Rate controlled with verapamil. Started on anticoagulation with liquids. Paroxysmal fibrillation history not on any anticoagulation currently at home. 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 Continue with verapamil and Eliquis.. Patient was on antibiotics in the form of ceftriaxone and Flagyl. Changed to meropenem. Continue with duo nebs and IV steroids. Pulmonary is following.. Continue with home medications and further recommendations based on the clinical course. Prognosis is guarded with multiple medical problems and comorbid conditions. PEG tube feeding. Aspiration precautions and deep breathing exercises.. Time with Patient: Greater than 30
[2018-11-01] MEDS: INSULIN ASPART (NovoLOG) 100 UNIT/ML VIAL SQ SCH ×4 (06:10→21:26)
[2018-11-01 06:24] LABS: Glucose,Whole Blood 123 mg/dL (75-99)
[2018-11-01] MEDS: PANTOPRAZOLE SODIUM 40 MG GRANULE PKT PEG/G-TUBE SCH (06:29)
[2018-11-01] MEDS: ASPIRIN 81 MG PEG/G-TUBE SCH (08:16)
[2018-11-01] MEDS: VERAPAMIL SR 240 MG TABLET.ER PO SCH (08:16)
[2018-11-01] MEDS: APIXABAN 5 MG TAB PO SCH ×2 (08:16→20:14)
[2018-11-01] MEDS: methylPREDNISolone SOD SUCCI 40 MG/ML 1 ML VIAL IV SCH ×3 (08:17→23:20)
[2018-11-01] MEDS: MEROPENEM 1 GM in SODIUM CHLORIDE 0.9% 100 ML IVPB SCH ×2 (08:20→16:22)
[2018-11-01] MEDS: IPRATROPIUM-ALBUTEROL 3 ML NEB INHALATION SCH ×4 (08:22→18:56)
[2018-11-01] MEDS: SYMBICORT 160-4.5 MCG INHALER INHALATION SCH ×2 (08:22→18:56)
[2018-11-01 11:10] LABS: Glucose,Whole Blood 180 mg/dL (75-99)
[2018-11-01] MEDS ORDERED: VANCOMYCIN IV PER PHARMACY 1 EACH MISC MISCELLANE PRN (12:31)
[2018-11-01 16:26] LABS: Glucose,Whole Blood 160 mg/dL (75-99)
[2018-11-01] MEDS: VANCOMYCIN 1,250 MG in SODIUM CHLORIDE 0.9% 250 ML IVPB SCH ×2 (17:14→21:26)
[2018-11-01 21:00] LABS: Glucose,Whole Blood 143 mg/dL (75-99)
[2018-11-02] MEDS: MEROPENEM 1 GM in SODIUM CHLORIDE 0.9% 100 ML IVPB SCH ×3 (00:06→16:33)
--- NOTE | 2018-11-02 01:37 | CONS ---
CONSULTATION DATE OF SERVICE: 11/01/2018. REASON FOR CONSULTATION: Worsening pneumonia. HISTORY OF PRESENT ILLNESS: The patient is a 73-year-old male with a past medical history significant for vocal cord paralysis. The patient did have a PEG tube for feeding dysphagia and left upper previous history of CVA and history of aspiration pneumonia. The patient has been brought into the ER at [facility] on 10/24/2018 with concern for possible episodes of aspiration as the patient apparently has been vomiting and prior to that the patient did have a congested cough increasing requirement off supplemental oxygen and subjective fever. With these symptoms, the patient has been brought into the ER. The patient's cough has been mild to moderate in intensity. Has reported some blood-stained sputum. On admission, the patient did have a chest x-ray shows bibasilar infiltrates consolidation for infectious process. The patient did not have high- grade fever or elevated white count. The patient was initially started on Rocephin and Flagyl. Subsequent antibiotic was switched to meropenem by the Pulmonary service. The patient did have a chest x-ray completed on 10/30/2018 which shows worsening right- sided pneumonia that prompted this infectious disease consultation. The patient remains to be afebrile. He seemed to be breathing slightly comfortably per the present at bedside as she provided most of the history. The patient denies having any chest pain. No further nausea or vomiting. No abdominal pain. No diarrhea. Cough remains to productive sputum. REVIEW OF SYSTEMS: Positive points have been mentioned in HPI. Rest of the system has been negative. PAST MEDICAL HISTORY: Of COPD, CVA, TIA, gastroesophageal reflux disease, rheumatoid arthritis, vocal cord paralysis, aspiration pneumonia, left partial paralysis. PAST SURGICAL HISTORY: Appendectomy, hernia repair: Tonsillectomy. Left bunion surgery. Hemorrhoidectomy. SOCIAL HISTORY: Remote history of smoking. No drinking or drug use. FAMILY HISTORY: Sister with history of colon cancer. Brother history of sarcoidosis. Mother history of lung cancer. Father history of lymphoma and sarcoidosis. ALLERGIES: PENICILLIN and PIPERACILLIN for a rash and SULFA. MEDICATION: Medications include the patient is currently on DuoNeb, Eliquis, aspirin, Senokot, NovoLog, meropenem 1 g q.8 hours: Solu-Medrol, Protonix, Verapamil and Ambien. PHYSICAL EXAMINATION: VITAL SIGNS: Blood pressure 133/82 with a pulse of 66, temperature 98.1. He is 98% on 3 L nasal cannula. General description is an elderly male lying in bed in no distress. No tachypnea or accessory muscle for respiration use. HEENT: No pallor or scleral icterus. Oral mucosa membranes are dry. Neck trachea central. No thyromegaly. Lungs unlabored breathing. Coarse breath sounds. No wheeze. Heart S1, S2. Regular rate and rhythm. Extremities: No edema of the feet. Skin examination: No rash or mass palpable. Neurological: Patient is awake, alert, mood and affect normal. LABS: Hemoglobin 13.1, white count 6.7, BUN of 32, creatinine 0.44. 5.3. Urine is negative. Influenza serology was negative. Blood cultures negative. No sputum has been collected. DIAGNOSTIC IMPRESSION AND PLAN: Patient with worsening right lower lobe pneumonia. The patient has been admitted to the hospital with concern for an aspiration process and this patient previously has grown resistant gram negative from the sputum though at this time the patient seems to have worsening of despite being under good gram-negative coverage with a question of possible gram-positive pathogen responsible for the right lower lobe pneumonia. PLAN: 1. We will obtain sputum for Gram stain culture and sensitivity. 2. We will add vancomycin pharmacy to dose target of 15 while watching kidney function and closely. Continue meropenem for now. 3. We will follow on his clinical condition and culture to further adjust medication if needed. Thank you for this consultation. Will follow this patient along with you. MMODL / IJN: [id number] /
[2018-11-02] MEDS: VANCOMYCIN 1,250 MG in SODIUM CHLORIDE 0.9% 250 ML IVPB SCH ×3 (05:22→21:38)
[2018-11-02] MEDS: IPRATROPIUM-ALBUTEROL 3 ML NEB INHALATION PRN (05:43)
[2018-11-02] MEDS: INSULIN ASPART (NovoLOG) 100 UNIT/ML VIAL SQ SCH ×4 (06:07→21:38)
[2018-11-02 06:10] LABS: Glucose,Whole Blood 118 mg/dL (75-99)
[2018-11-02] MEDS: PANTOPRAZOLE SODIUM 40 MG GRANULE PKT PEG/G-TUBE SCH (06:16)
[2018-11-02] MEDS: methylPREDNISolone SOD SUCCI 40 MG/ML 1 ML VIAL IV SCH ×2 (07:44→16:33)
[2018-11-02] MEDS: ASPIRIN 81 MG PEG/G-TUBE SCH (07:44)
[2018-11-02] MEDS: VERAPAMIL SR 240 MG TABLET.ER PO SCH (07:44)
[2018-11-02] MEDS: APIXABAN 5 MG TAB PO SCH ×2 (07:44→20:35)
[2018-11-02] MEDS: IPRATROPIUM-ALBUTEROL 3 ML NEB INHALATION SCH ×4 (09:00→19:47)
[2018-11-02] MEDS: SYMBICORT 160-4.5 MCG INHALER INHALATION SCH ×2 (09:11→19:46)
[2018-11-02 11:19] LABS: Glucose,Whole Blood 125 mg/dL (75-99)
[2018-11-02] MEDS ORDERED: VANCOMYCIN TROUGH DUE 1 EACH MISC MISCELLANE ONE (13:00)
[2018-11-02 16:22] LABS: Glucose,Whole Blood 155 mg/dL (75-99)
[2018-11-02] MEDS ORDERED: METOPROLOL TARTRATE 25 MG TAB PO STA ×2 (20:26→22:07)
--- NOTE | 2018-11-02 21:08 | PN ---
PROGRESS NOTE DATE OF SERVICE: 11/02/2018 REASON FOR FOLLOWUP: Pneumonia. INTERVAL HISTORY: The patient is afebrile this morning. The patient is breathing slightly comfortably. The patient did have a cough with blood-stained sputum. No nausea, no vomiting. No abdominal pain. No diarrhea. PHYSICAL EXAMINATION: Blood pressure 125/90 with a pulse of 51, temperature 98.3. He is 94% on 2 L nasal cannula. General description is an elderly male lying in bed in no distress. Respiratory system: Unlabored breathing, decreased breath sounds at the bases. No wheeze. Heart S1, S2. Regular rate and rhythm. Abdomen is soft. No tenderness. Extremities are no edema of the feet. LABS: No new labs have been obtained today. The sputum culture done yesterday is currently pending. Blood culture has been negative. DIAGNOSTIC IMPRESSION AND PLAN: Patient with right lower lobe pneumonia, did not respond to initial IV meropenem, currently on vancomycin. Did have some improvement. We will wait for the sputum culture to finalize to determine his discharge antibiotics. was present at bedside. Questions and concerns were answered. MMODL / IJN: [id number] /
[2018-11-02 21:09] LABS: Glucose,Whole Blood 168 mg/dL (75-99)
[2018-11-03] MEDS: methylPREDNISolone SOD SUCCI 40 MG/ML 1 ML VIAL IV SCH (00:06)
--- NOTE | 2018-11-03 01:12 | P.PN ---
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 Patient says that she did have a coughing spell and aspirated. Otherwise denied any fever or chills. Denied any chest pain. No nausea vomiting or diarrhea. No sputum production. Patient thought he has aspirated and came to ER for evaluation. Otherwise no history of heart problems. No leg swelling. Chest x-ray showed bibasilar infiltrate/consolidation. Correlate clinically for intermittently/infectious process. Possible trace pleural effusions. No leukocytosis. EKG showed normal sinus rhythm Patient is tachycardic, tachypneic and hypoxic on admission. 10/26/2018 Patient says that she did have some improvement in the breathing status. Antibiotics have been changed to meropenem as per previous cultures. Pulmonary has seen the patient. Otherwise patient developed atrial fibrillation with RVR. Patient will be transferred to telemetry unit. Started on Cardizem drip and heparin drip will be started. A bernard does have history of paroxysmal atrial fibrillation currently not on any anticoagulation at home. No further nausea vomiting or abdominal pain. No fever no chills. Tolerating PEG tube feeding. Denied any coughing spells again. 10/27/2018 Patient denied any complaints of chest pain or worsening shortness of breath. Heart rate is better controlled. Patient is being continued on heparin drip and Cardizem drip. Her verapamil was started as per cardiology recommendations. Currently on antibiotics in the form of meropenem. Continued on IV steroids and breathing treatments. Pulmonary is following as well. No fever no chills. No nausea vomiting or abdominal pain. Patient did have a coughing spell again this morning. Denied any aspiration.. 10/28/2018 Patient is still complaining of shortness of breath not back to baseline. Heart rate is better controlled. Heparin drip has been discontinued. Patient was started on liquids twice daily. Patient is being continued on breathing treatments and IV steroids and antibiotics in the form of meropenem. Pulmonary and cardiology is on board. 10/29/2018 Patient denied any complaints of chest pain. Shortness of breath is not at baseline. Otherwise heart rate is controlled and being continued on verapamil and liquids. Currently on antibiotics in the form of meropenem. Pulmonary is on board. No fever no chills. No headache or dizziness or lightheadedness. No nausea vomiting or abdominal pain or diarrhea. 10/30/2018 Patient is still having shortness of breath at baseline. Currently on breathing treatments and IV steroids along with antibiotics in the form of meropenem. Repeat chest x-ray was ordered. Pulmonary was contacted for further recommendations. No fever no chills. No leukocytosis. Patient does have poor respiratory effort secondary to generalized weakness. Continue to follow closely. No commerce of chest pain. 10/31/2018 Patient says that he is feeling better today. Repeat chest x-ray yesterday showed worsening right lower lobe pneumonia. Patient is being converted on antibiotics in the form of meropenem. ID will be consulted. Patient was encouraged with the breathing and respiratory effort. Anticipate discharge with final antibiotic recommendations. 11/01/2018 Patient is still having some shortness of breath. No chest pain. Sputum Culture was sent. Currently on meropenem. Changed to vancomycin. ID is following. Further recommendations based on the culture report. No fever no chills. Leukocytosis improved. Patient was encouraged with deep breathing exercises. Current medications reviewed. Objective - Vital Signs Vital signs: Vital Signs Temp 98.1 F 11/01/18 16:00 Pulse 90 11/01/18 19:11 Resp 20 11/01/18 16:00 BP 133/82 11/01/18 16:00 Pulse Ox 98 11/01/18 16:00 Intake & Output 11/01/18 11/01/18 11/02/18 06:59 18:59 06:59 Intake Total 2880 Output Total 150 Balance -150 2880 Weight 72.8 kg Intake: Tube Feeding 2880 Output: Urine 150 Other: Voiding Method Toilet Toilet Urinal Urinal - Exam PHYSICAL EXAMINATION: Patient is lying in the bed comfortably, no acute distress, awake alert and oriented.. HEENT: Normocephalic. Neck is supple. Pupils reactive. Nostrils clear. Oral cavity is moist. Ears reveal no drainage. Neck reveals no JVD, carotid bruits, or thyromegaly. CHEST EXAMINATION: Trachea is central. Symmetrical expansion. Bibasilar diminished air entry. Scattered rhonchi. Bibasilar crackles. No wheezing.. CARDIAC: Normal S1, S2 with no gallops. No murmurs ABDOMEN: Soft. PEG tube is in place. Bowel sounds normal. No organomegaly. No abdominal bruits. Extremities: reveal no edema. No clubbing or cyanosis Neurologically awake, alert, oriented x3 . Generalized muscle weakness and atrophy. No focal deficits noted Skin: No rash or skin lesions. Psychiatric: Coperative. Nonsuicidal Musculoskeletal: No joint swelling or deformity. Normal range of motion. - Labs CBC & Chem 7: 10/31/18 05:57 10/31/18 05:57 Labs: Abnormal Lab Results - Last 24 Hours (Table) 11/01/18 11/01/18 11/01/18 Range/Units 06:09 11:08 16:24 POC Glucose (mg/dL) 123 H 180 H 160 H (75-99) mg/dL 11/01/18 Range/Units 20:52 POC Glucose (mg/dL) 143 H (75-99) mg/dL Microbiology - Last 24 Hours (Table) 11/01/18 15:20 Sputum Culture - Preliminary Sputum Assessment and Plan Assessment: Bibasilar infiltrates due to aspiration pneumonia. Acute hypoxic respiratory failure on admission. Saturating well on nausea cannula now. Atrial fibrillation with rapid regular rate. Rate controlled with verapamil. Started on anticoagulation with liquids. Paroxysmal fibrillation history not on any anticoagulation currently at home. Dysphagia, currently on PEG tube feeding Facial onset sensory motor neuropathy with generalized muscle atrophy and weakn ess Rheumatoid arthritis History of CVA/TIA COPD not on home oxygen GERD Vocal cord paralysis history Multiple myeloma Anxiety Previous history of smoking DVT prophylaxis Plan: Cardizem drip and heparin drip has been discontinued. Continue with verapamil and Eliquis.. Patient was on antibiotics in the form of ceftriaxone and Flagyl. Changed to meropenem---> vancomycin. Continue with duo nebs and IV steroids--po. Pulmonary has seen the patient.. Continue with home medications and further recommendations based on the clinical course. Prognosis is guarded with multiple medical problems and comorbid conditions. PEG tube feeding. Aspiration precautions and deep breathing exercises.. Time with Patient: Greater than 30
--- NOTE | 2018-11-03 01:18 | P.PN ---
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 Patient says that she did have a coughing spell and aspirated. Otherwise denied any fever or chills. Denied any chest pain. No nausea vomiting or diarrhea. No sputum production. Patient thought he has aspirated and came to ER for evaluation. Otherwise no history of heart problems. No leg swelling. Chest x-ray showed bibasilar infiltrate/consolidation. Correlate clinically for intermittently/infectious process. Possible trace pleural effusions. No leukocytosis. EKG showed normal sinus rhythm Patient is tachycardic, tachypneic and hypoxic on admission. 10/26/2018 Patient says that she did have some improvement in the breathing status. Antibiotics have been changed to meropenem as per previous cultures. Pulmonary has seen the patient. Otherwise patient developed atrial fibrillation with RVR. Patient will be transferred to telemetry unit. Started on Cardizem drip and heparin drip will be started. A bernard does have history of paroxysmal atrial fibrillation currently not on any anticoagulation at home. No further nausea vomiting or abdominal pain. No fever no chills. Tolerating PEG tube feeding. Denied any coughing spells again. 10/27/2018 Patient denied any complaints of chest pain or worsening shortness of breath. Heart rate is better controlled. Patient is being continued on heparin drip and Cardizem drip. Her verapamil was started as per cardiology recommendations. Currently on antibiotics in the form of meropenem. Continued on IV steroids and breathing treatments. Pulmonary is following as well. No fever no chills. No nausea vomiting or abdominal pain. Patient did have a coughing spell again this morning. Denied any aspiration.. 10/28/2018 Patient is still complaining of shortness of breath not back to baseline. Heart rate is better controlled. Heparin drip has been discontinued. Patient was started on liquids twice daily. Patient is being continued on breathing treatments and IV steroids and antibiotics in the form of meropenem. Pulmonary and cardiology is on board. 10/29/2018 Patient denied any complaints of chest pain. Shortness of breath is not at baseline. Otherwise heart rate is controlled and being continued on verapamil and liquids. Currently on antibiotics in the form of meropenem. Pulmonary is on board. No fever no chills. No headache or dizziness or lightheadedness. No nausea vomiting or abdominal pain or diarrhea. 10/30/2018 Patient is still having shortness of breath at baseline. Currently on breathing treatments and IV steroids along with antibiotics in the form of meropenem. Repeat chest x-ray was ordered. Pulmonary was contacted for further recommendations. No fever no chills. No leukocytosis. Patient does have poor respiratory effort secondary to generalized weakness. Continue to follow closely. No commerce of chest pain. 10/31/2018 Patient says that he is feeling better today. Repeat chest x-ray yesterday showed worsening right lower lobe pneumonia. Patient is being converted on antibiotics in the form of meropenem. ID will be consulted. Patient was encouraged with the breathing and respiratory effort. Anticipate discharge with final antibiotic recommendations. 11/01/2018 Patient is still having some shortness of breath. No chest pain. Sputum Culture was sent. Currently on meropenem. Changed to vancomycin. ID is following. Further recommendations based on the culture report. No fever no chills. Leukocytosis improved. Patient was encouraged with deep breathing exercises. 2018 Patient says that he is feeling better today. Continued on vancomycin. ID is on board. Awaiting final sputum culture report. Further recommendations based on the culture report. Follow-up repeat labs tomorrow. Anticipate discharge next 24-48 hours. Current medications reviewed. Objective - Vital Signs Vital signs: Vital Signs Temp 99.1 F 11/02/18 20:00 Pulse 90 11/02/18 20:03 Resp 19 11/02/18 20:00 BP 152/77 11/02/18 20:00 Pulse Ox 97 11/02/18 20:00 Intake & Output 11/02/18 11/02/18 11/03/18 06:59 18:59 06:59 Intake Total 2880 Output Total 350 400 Balance -350 2480 Weight 71.4 kg Intake: Tube Feeding 2880 Output: Urine 350 400 Other: Voiding Method Toilet Urinal # Voids 3 - Exam PHYSICAL EXAMINATION: Patient is lying in the bed comfortably, no acute distress, awake alert and oriented.. HEENT: Normocephalic. Neck is supple. Pupils reactive. Nostrils clear. Oral cavity is moist. Ears reveal no drainage. Neck reveals no JVD, carotid bruits, or thyromegaly. CHEST EXAMINATION: Trachea is central. Symmetrical expansion. Bibasilar diminished air entry. Scattered rhonchi. Bibasilar crackles. No wheezing.. CARDIAC: Normal S1, S2 with no gallops. No murmurs ABDOMEN: Soft. PEG tube is in place. Bowel sounds normal. No organomegaly. No abdominal bruits. Extremities: reveal no edema. No clubbing or cyanosis Neurologically awake, alert, oriented x3 . Generalized muscle weakness and atrophy. No focal deficits noted Skin: No rash or skin lesions. Psychiatric: Coperative. Nonsuicidal Musculoskeletal: No joint swelling or deformity. Normal range of motion. - Labs CBC & Chem 7: 10/31/18 05:57 10/31/18 05:57 Labs: Abnormal Lab Results - Last 24 Hours (Table) 11/02/18 11/02/18 11/02/18 Range/Units 06:06 11:17 16:18 POC Glucose (mg/dL) 118 H 125 H 155 H (75-99) mg/dL 11/02/18 Range/Units 21:08 POC Glucose (mg/dL) 168 H (75-99) mg/dL Microbiology - Last 24 Hours (Table) 11/01/18 15:20 Gram Stain - Preliminary Sputum Sputum Culture - Preliminary Assessment and Plan Assessment: Bibasilar infiltrates due to aspiration pneumonia. Acute hypoxic respiratory failure on admission. Saturating well on nausea cannula now. Atrial fibrillation with rapid regular rate. Rate controlled with verapamil. Started on anticoagulation with liquids. Paroxysmal fibrillation history not on any anticoagulation currently at home. Dysphagia, currently on PEG tube feeding Facial onset sensory motor neuropathy with generalized muscle atrophy and weakn ess Rheumatoid arthritis History of CVA/TIA COPD not on home oxygen GERD Vocal cord paralysis history Multiple myeloma Anxiety Previous history of smoking DVT prophylaxis Plan: Cardizem drip and heparin drip has been discontinued. Continue with verapamil and Eliquis.. Patient was on antibiotics in the form of ceftriaxone and Flagyl. Changed to meropenem---> vancomycin. Continue with duo nebs and IV steroids--po. Pulmonary has seen the patient.. Continue with home medications and further recommendations based on the clinical course. Prognosis is guarded with multiple medical problems and comorbid conditions. PEG tube feeding. Aspiration precautions and deep breathing exercises.. Time with Patient: Greater than 30
[2018-11-03] MEDS ORDERED: VANCOMYCIN TROUGH DUE 1 EACH MISC MISCELLANE ONE (05:00)
[2018-11-03 05:39] LABS: Glucose,Whole Blood 119 mg/dL (75-99)
[2018-11-03] MEDS: INSULIN ASPART (NovoLOG) 100 UNIT/ML VIAL SQ SCH ×5 (05:41→21:27)
[2018-11-03] MEDS: PANTOPRAZOLE SODIUM 40 MG GRANULE PKT PEG/G-TUBE SCH (06:21)
[2018-11-03 06:40] LABS: Blood Urea Nitrogen 33 mg/dL (9-20); Calcium 9.2 mg/dL (8.4-10.2); Chloride 87 mmol/L (98-107); Glucose 86 mg/dL (74-99); Potassium 5.6 mmol/L (3.5-5.1); Sodium 135 mmol/L (137-145)
[2018-11-03] MEDS: VANCOMYCIN 1,250 MG in SODIUM CHLORIDE 0.9% 250 ML IVPB SCH (06:45)
[2018-11-03 06:46] LABS: Anion Gap 0 mmol/L
[2018-11-03 06:49] LABS: Carbon Dioxide 48 mmol/L (22-30)
[2018-11-03] MEDS: APIXABAN 5 MG TAB PO SCH ×2 (08:10→19:45)
[2018-11-03] MEDS: ASPIRIN 81 MG PEG/G-TUBE SCH (08:10)
[2018-11-03] MEDS: VERAPAMIL SR 240 MG TABLET.ER PO SCH (08:10)
[2018-11-03] MEDS: predniSONE 20 MG TAB PO SCH (08:11)
[2018-11-03] MEDS: IPRATROPIUM-ALBUTEROL 3 ML NEB INHALATION SCH ×4 (08:57→20:06)
[2018-11-03] MEDS: SYMBICORT 160-4.5 MCG INHALER INHALATION SCH ×2 (08:57→20:04)
[2018-11-03 11:10] VITALS: BMI 22.5
[2018-11-03 11:41] LABS: Glucose,Whole Blood 90 mg/dL (75-99)
[2018-11-03] MEDS: METOPROLOL TARTRATE 25 MG TAB PO SCH ×2 (15:31→19:45)
[2018-11-03] MEDS: VANCOMYCIN 1,500 MG in SODIUM CHLORIDE 0.9% 250 ML IVPB SCH ×2 (15:41→21:27)
[2018-11-03] MEDS ORDERED: SODIUM POLYSTYRENE SULFONATE 15 GM/60 ML BOTTLE PO STA (15:58)
--- NOTE | 2018-11-03 16:23 | PN ---
PROGRESS NOTE DATE OF SERVICE: 11/03/2018 REASON FOR FOLLOWUP: Right lower lobe pneumonia. INTERVAL HISTORY: The patient is currently afebrile. The patient is breathing more comfortably. He denies having any chest pain mostly dry in nature now. No nausea. No vomiting. No abdominal pain and no diarrhea. PHYSICAL EXAMINATION: Blood pressure is 126/91 with a pulse of 61, temperature 97.5. He is 99% on 2 L nasal cannula. General description is an elderly male lying in bed in no distress. RESPIRATORY SYSTEM: Unlabored breathing with decreased breath sounds at the base. No wheeze. HEART: S1, S2. Regular rate and rhythm. ABDOMEN: Soft. No tenderness. EXTREMITIES: No edema of the feet. LABS: BUN of 33, creatinine 0.46. Sputum cultures currently pending. Blood culture has been negative. DIAGNOSTIC IMPRESSION AND PLAN: Patient with right lower lobe pneumonia. Patient failed to respond to initial IV meropenem therapy. Seems to be responding to the IV vancomycin. That should be continued for now. We are waiting for the sputum cultures to finalize to determine his discharge antibiotic, which is currently pending. Continue supportive care. MMODL / IJN: [id number] /
[2018-11-03 16:54] LABS: Glucose,Whole Blood 138 mg/dL (75-99)
--- NOTE | 2018-11-03 16:56 | P.PN ---
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 Patient says that she did have a coughing spell and aspirated. Otherwise denied any fever or chills. Denied any chest pain. No nausea vomiting or diarrhea. No sputum production. Patient thought he has aspirated and came to ER for evaluation. Otherwise no history of heart problems. No leg swelling. Chest x-ray showed bibasilar infiltrate/consolidation. Correlate clinically for intermittently/infectious process. Possible trace pleural effusions. No leukocytosis. EKG showed normal sinus rhythm Patient is tachycardic, tachypneic and hypoxic on admission. 10/26/2018 Patient says that she did have some improvement in the breathing status. Antibiotics have been changed to meropenem as per previous cultures. Pulmonary has seen the patient. Otherwise patient developed atrial fibrillation with RVR. Patient will be transferred to telemetry unit. Started on Cardizem drip and heparin drip will be started. A bernard does have history of paroxysmal atrial fibrillation currently not on any anticoagulation at home. No further nausea vomiting or abdominal pain. No fever no chills. Tolerating PEG tube feeding. Denied any coughing spells again. 10/27/2018 Patient denied any complaints of chest pain or worsening shortness of breath. Heart rate is better controlled. Patient is being continued on heparin drip and Cardizem drip. Her verapamil was started as per cardiology recommendations. Currently on antibiotics in the form of meropenem. Continued on IV steroids and breathing treatments. Pulmonary is following as well. No fever no chills. No nausea vomiting or abdominal pain. Patient did have a coughing spell again this morning. Denied any aspiration.. 10/28/2018 Patient is still complaining of shortness of breath not back to baseline. Heart rate is better controlled. Heparin drip has been discontinued. Patient was started on liquids twice daily. Patient is being continued on breathing treatments and IV steroids and antibiotics in the form of meropenem. Pulmonary and cardiology is on board. 10/29/2018 Patient denied any complaints of chest pain. Shortness of breath is not at baseline. Otherwise heart rate is controlled and being continued on verapamil and liquids. Currently on antibiotics in the form of meropenem. Pulmonary is on board. No fever no chills. No headache or dizziness or lightheadedness. No nausea vomiting or abdominal pain or diarrhea. 10/30/2018 Patient is still having shortness of breath at baseline. Currently on breathing treatments and IV steroids along with antibiotics in the form of meropenem. Repeat chest x-ray was ordered. Pulmonary was contacted for further recommendations. No fever no chills. No leukocytosis. Patient does have poor respiratory effort secondary to generalized weakness. Continue to follow anil sely. No commerce of chest pain. 10/31/2018 Patient says that he is feeling better today. Repeat chest x-ray yesterday showed worsening right lower lobe pneumonia. Patient is being converted on an tibiotics in the form of meropenem. ID will be consulted. Patient was encouraged with the breathing and respiratory effort. Anticipate discharge with final antibiotic recommendations. 11/01/2018 Patient is still having some shortness of breath. No chest pain. Sputum Culture was sent. Currently on meropenem. Changed to vancomycin. ID is following. Further recommendations based on the culture report. No fever no chills. Leukocytosis improved. Patient was encouraged with deep breathing exercises. 2018 Patient says that he is feeling better today. Continued on vancomycin. ID is on board. Awaiting final sputum culture report. Further recommendations based on the culture report. Follow-up repeat labs tomorrow. Anticipate discharge next 24-48 hours. 11/03/2018 Patient is feeling much better wanted to go home but patient blood pressure is borderline and patient was started on beta jairon today with borderline blood pressure. Patient is also hyperkalemic with serum potassium of 5.6. Elevated serum potassium is probably because of his diet and PEG tube feedings which was switched to Nepro and with contribution from verapamil. Sputum cultures are negative. Patient is being continued on same antibiotics today. Constitutional: Denied any fatigue denied any fever. Cardio vascular: denied any chest pain, palpitations Gastrointestinal denied any nausea vomiting Pulmonary: Denied any shortness of breath cough Neurologic denied any new focal deficits All inpatient medications were reviewed and appropriate changes in these medications as dictated in the interval history and assessment and plan. Objective - Vital Signs Vital signs: Vital Signs Temp 97.9 F 11/03/18 15:24 Pulse 90 04/10/19 16:15 Resp 18 11/03/18 15:24 BP 86/56 11/03/18 15:24 Pulse Ox 97 11/03/18 15:24 Intake & Output 11/02/18 11/03/18 11/03/18 18:59 06:59 18:59 Intake Total 2880 250 1440 Output Total 400 650 Balance 2480 -400 1440 Weight 71.3 kg 71.3 kg Intake: Intake, IV Titration 250 Amount Vancomycin 1,250 mg In 250 Sodium Chloride 0.9% 250 ml @ 125 mls/hr IVPB Q8H [facility] Rx#:[id number] Tube Feeding 2880 1440 Output: Urine 400 650 Other: Voiding Method Toilet Urinal Incontinent # Voids 3 - Exam PHYSICAL EXAMINATION: Patient is lying in the bed comfortably, no acute distress, awake alert and oriented.. HEENT: Normocephalic. Neck is supple. Pupils reactive. Nostrils clear. Oral cavity is moist. Ears reveal no drainage. Neck reveals no JVD, carotid bruits, or thyromegaly. CHEST EXAMINATION: Trachea is central. Symmetrical expansion. Bibasilar dim inished air entry. Scattered rhonchi. Bibasilar crackles. No wheezing.. CARDIAC: Normal S1, S2 with no gallops. No murmurs ABDOMEN: Soft. PEG tube is in place. Bowel sounds normal. No organomegaly. No abdominal bruits. Extremities: reveal no edema. No clubbing or cyanosis Neurologically awake, alert, oriented x3 . Generalized muscle weakness and atrophy. No focal deficits noted Skin: No rash or skin lesions. Psychiatric: Coperative. Nonsuicidal Musculoskeletal: No joint swelling or deformity. Normal range of motion. - Labs CBC & Chem 7: 10/31/18 05:57 11/03/18 05:56 Labs: Abnormal Lab Results - Last 24 Hours (Table) 11/02/18 11/03/18 11/03/18 Range/Units 21:08 05:38 05:56 Sodium 135 L (137-145) mmol/L Potassium 5.6 H (3.5-5.1) mmol/L Chloride 87 L (98-107) mmol/L Carbon Dioxide 48 H* (22-30) mmol/L BUN 33 H (9-20) mg/dL Creatinine 0.46 L (0.66-1.25) mg/dL POC Glucose (mg/dL) 168 H 119 H (75-99) mg/dL Assessment and Plan Plan: Aspiration pneumonia. Acute hypoxic respiratory failure on admission. Patient is off oxygen and saturating well. Atrial fibrillation with rapid regular rate. Patient rate is not controlled well borderline low blood pressure continue with verapamil added due to jairon -Hyperlipidemia due to above-mentioned reasons PEG tube feedings were changed to Nepro Paroxysmal fibrillation history not on any anticoagulation currently at home. Dysphagia, currently on PEG tube feeding sensory motor neuropathy with involvement of facial nerve with generalized muscle atrophy and weakness Rheumatoid arthritis History of CVA/TIA COPD not on home oxygen GERD Vocal cord paralysis history Multiple myeloma Anxiety Previous history of smoking DVT prophylaxis Plan: Continue with verapamil and Eliquis.. Continue meropenem---> vancomycin. Continue with duo nebs and IV steroids--po. Pulmonary has seen the patient.. Continue with home medications and further recommendations based on the clinical course. Prognosis is guarded with multiple medical problems and comorbid conditions. PEG tube feeding. Aspiration precautions and deep breathing exercises.. Repeat basic metabolic profile possibility of discharge tomorrow
[2018-11-03 20:54] LABS: Glucose,Whole Blood 134 mg/dL (75-99)
[2018-11-04 05:48] LABS: Glucose,Whole Blood 84 mg/dL (75-99)
[2018-11-04] MEDS: INSULIN ASPART (NovoLOG) 100 UNIT/ML VIAL SQ SCH ×4 (05:49→20:50)
[2018-11-04] MEDS: PANTOPRAZOLE SODIUM 40 MG GRANULE PKT PEG/G-TUBE SCH (06:34)
[2018-11-04] MEDS: VANCOMYCIN 1,500 MG in SODIUM CHLORIDE 0.9% 250 ML IVPB SCH ×3 (06:34→22:07)
[2018-11-04 06:40] LABS: HCT 38.2 % (39.0-53.0); HGB 11.7 gm/dL (13.0-17.5); MCH 31.7 pg (25.0-35.0); MCHC 30.6 g/dL (31.0-37.0); Macrocytosis Slight; Mean Platelet Volume 9.8; Platelet Count 174 k/uL (150-450); RBC 3.69 m/uL (4.30-5.90); RDW 13.4 % (11.5-15.5)
[2018-11-04 06:43] LABS: MCV 103.6 fL (80.0-100.0)
[2018-11-04 06:49] LABS: Blood Urea Nitrogen 35 mg/dL (9-20); Calcium 8.8 mg/dL (8.4-10.2); Chloride 87 mmol/L (98-107); Glucose 72 mg/dL (74-99); Potassium 4.7 mmol/L (3.5-5.1); Sodium 134 mmol/L (137-145)
[2018-11-04 06:55] LABS: Anion Gap 3 mmol/L
[2018-11-04 06:57] LABS: Carbon Dioxide 44 mmol/L (22-30)
[2018-11-04] MEDS: IPRATROPIUM-ALBUTEROL 3 ML NEB INHALATION SCH ×4 (08:33→20:29)
[2018-11-04] MEDS: SYMBICORT 160-4.5 MCG INHALER INHALATION SCH ×2 (08:33→20:29)
[2018-11-04] MEDS: VERAPAMIL SR 240 MG TABLET.ER PO SCH (09:19)
[2018-11-04] MEDS: ASPIRIN 81 MG PEG/G-TUBE SCH (09:19)
[2018-11-04] MEDS: predniSONE 20 MG TAB PO SCH (09:20)
[2018-11-04] MEDS: APIXABAN 5 MG TAB PO SCH ×2 (09:20→20:37)
[2018-11-04] MEDS: METOPROLOL TARTRATE 25 MG TAB PO SCH ×2 (09:20→20:37)
[2018-11-04 11:17] LABS: Glucose,Whole Blood 85 mg/dL (75-99)
--- NOTE | 2018-11-04 12:54 | P.PN ---
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 Patient says that she did have a coughing spell and aspirated. Otherwise denied any fever or chills. Denied any chest pain. No nausea vomiting or diarrhea. No sputum production. Patient thought he has aspirated and came to ER for evaluation. Otherwise no history of heart problems. No leg swelling. Chest x-ray showed bibasilar infiltrate/consolidation. Correlate clinically for intermittently/infectious process. Possible trace pleural effusions. No leukocytosis. EKG showed normal sinus rhythm Patient is tachycardic, tachypneic and hypoxic on admission. 10/26/2018 Patient says that she did have some improvement in the breathing status. Antibiotics have been changed to meropenem as per previous cultures. Pulmonary has seen the patient. Otherwise patient developed atrial fibrillation with RVR. Patient will be transferred to telemetry unit. Started on Cardizem drip and heparin drip will be started. A bernard does have history of paroxysmal atrial fibrillation currently not on any anticoagulation at home. No further nausea vomiting or abdominal pain. No fever no chills. Tolerating PEG tube feeding. Denied any coughing spells again. 10/27/2018 Patient denied any complaints of chest pain or worsening shortness of breath. Heart rate is better controlled. Patient is being continued on heparin drip and Cardizem drip. Her verapamil was started as per cardiology recommendations. Currently on antibiotics in the form of meropenem. Continued on IV steroids and breathing treatments. Pulmonary is following as well. No fever no chills. No nausea vomiting or abdominal pain. Patient did have a coughing spell again this morning. Denied any aspiration.. 10/28/2018 Patient is still complaining of shortness of breath not back to baseline. Heart rate is better controlled. Heparin drip has been discontinued. Patient was started on liquids twice daily. Patient is being continued on breathing treatments and IV steroids and antibiotics in the form of meropenem. Pulmonary and cardiology is on board. 10/29/2018 Patient denied any complaints of chest pain. Shortness of breath is not at baseline. Otherwise heart rate is controlled and being continued on verapamil and liquids. Currently on antibiotics in the form of meropenem. Pulmonary is on board. No fever no chills. No headache or dizziness or lightheadedness. No nausea vomiting or abdominal pain or diarrhea. 10/30/2018 Patient is still having shortness of breath at baseline. Currently on breathing treatments and IV steroids along with antibiotics in the form of meropenem. Repeat chest x-ray was ordered. Pulmonary was contacted for further recommendations. No fever no chills. No leukocytosis. Patient does have poor respiratory effort secondary to generalized weakness. Continue to follow anil angel. No commerce of chest pain. 10/31/2018 Patient says that he is feeling better today. Repeat chest x-ray yesterday showed worsening right lower lobe pneumonia. Patient is being converted on an tibiotics in the form of meropenem. ID will be consulted. Patient was encouraged with the breathing and respiratory effort. Anticipate discharge with final antibiotic recommendations. 11/01/2018 Patient is still having some shortness of breath. No chest pain. Sputum Culture was sent. Currently on meropenem. Changed to vancomycin. ID is following. Further recommendations based on the culture report. No fever no chills. Leukocytosis improved. Patient was encouraged with deep breathing exercises. 2018 Patient says that he is feeling better today. Continued on vancomycin. ID is on board. Awaiting final sputum culture report. Further recommendations based on the culture report. Follow-up repeat labs tomorrow. Anticipate discharge next 24-48 hours. 11/03/2018 Patient is feeling much better wanted to go home but patient blood pressure is borderline and patient was started on beta jairon today with borderline blood pressure. Patient is also hyperkalemic with serum potassium of 5.6. Elevated serum potassium is probably because of his diet and PEG tube feedings which was switched to Nepro and with contribution from verapamil. Sputum cultures are negative. Patient is being continued on same antibiotics today. 11/04/2018 Patient's serum potassium improved but patient remains significantly tachycardic at rest discussed with cardiology recommending amiodarone patient will be started on 400 mg of amiodarone and metoprolol will be discontinued in couple days. Verapamil will be continued. Patient is not happy that he is not being discharged today. Sputum cultures are showing Pseudomonas which is sensitive to ciprofloxacin patient will be discharged on pseudomonal dose of ciprofloxacin for 10 days Constitutional: Denied any fatigue denied any fever. Cardio vascular: denied any chest pain, palpitations Gastrointestinal denied any nausea vomiting Pulmonary: Denied any shortness of breath cough Neurologic denied any new focal deficits All inpatient medications were reviewed and appropriate changes in these medications as dictated in the interval history and assessment and plan. Objective - Vital Signs Vital signs: Vital Signs Temp 97.2 F L 11/04/18 11:17 Pulse 118 H 11/04/18 12:40 Resp 18 11/04/18 11:17 BP 110/67 11/04/18 11:17 Pulse Ox 96 11/04/18 11:17 Intake & Output 11/03/18 11/04/18 11/04/18 18:59 06:59 18:59 Intake Total 2880 640 640 Output Total 200 700 100 Balance 2680 -60 540 Weight 71.3 kg 70.9 kg Intake: Oral 0 Tube Feeding 2880 640 640 Output: Urine 200 700 100 Other: Voiding Method Toilet Toilet Urinal Urinal Incontinent Incontinent # Voids 2 2 1 - Exam PHYSICAL EXAMINATION: Patient is lying in the bed comfortably, no acute distress, awake alert and oriented.. HEENT: Normocephalic. Neck is supple. Pupils reactive. Nostrils clear. Oral ca vity is moist. Ears reveal no drainage. Neck reveals no JVD, carotid bruits, or thyromegaly. CHEST EXAMINATION: Trachea is central. Symmetrical expansion. Bibasilar diminished air entry. Scattered rhonchi. Bibasilar crackles. No wheezing.. CARDIAC: Normal S1, S2 with no gallops. No murmurs , patient is irregularly irregular rhythm tachycardic ABDOMEN: Soft. PEG tube is in place. Bowel sounds normal. No organomegaly. No abdominal bruits. Extremities: reveal no edema. No clubbing or cyanosis Neurologically awake, alert, oriented x3 . Generalized muscle weakness and atrophy. No focal deficits noted Skin: No rash or skin lesions. Psychiatric: Coperative. Nonsuicidal Musculoskeletal: No joint swelling or deformity. Normal range of motion. - Labs CBC & Chem 7: 11/04/18 06:26 11/04/18 06:26 Labs: Abnormal Lab Results - Last 24 Hours (Table) 11/03/18 11/03/18 11/04/18 Range/Units 16:22 20:51 06:26 RBC 3.69 L (4.30-5.90) m/uL Hgb 11.7 L (13.0-17.5) gm/dL Hct 38.2 L (39.0-53.0) % MCV 103.6 H D (80.0-100.0) fL MCHC 30.6 L (31.0-37.0) g/dL Sodium (137-145) mmol/L Chloride (98-107) mmol/L Carbon Dioxide (22-30) mmol/L BUN (9-20) mg/dL Creatinine (0.66-1.25) mg/dL Glucose (74-99) mg/dL POC Glucose (mg/dL) 138 H 134 H (75-99) mg/dL 11/04/18 Range/Units 06:26 RBC (4.30-5.90) m/uL Hgb (13.0-17.5) gm/dL Hct (39.0-53.0) % MCV (80.0-100.0) fL MCHC (31.0-37.0) g/dL Sodium 134 L (137-145) mmol/L Chloride 87 L (98-107) mmol/L Carbon Dioxide 44 H* (22-30) mmol/L BUN 35 H (9-20) mg/dL Creatinine 0.46 L (0.66-1.25) mg/dL Glucose 72 L (74-99) mg/dL POC Glucose (mg/dL) (75-99) mg/dL Microbiology - Last 24 Hours (Table) 11/01/18 15:20 Gram Stain - Final Sputum Sputum Culture - Final Pseudomonas aeruginosa Assessment and Plan Plan: Aspiration pneumonia. Acute hypoxic respiratory failure on admission. Patient is off oxygen and saturating well. Atrial fibrillation with rapid regular rate. Patient rate is not controlled well borderline low blood pressure continue with verapamil a, on metoprolol 25 mg twice a day and amiodarone is being added patient blood pressure is borderline -Hyperlipidemia due to above-mentioned reasons PEG tube feedings were changed to Nepro Paroxysmal fibrillation history not on any anticoagulation currently at home. Dysphagia, currently on PEG tube feeding sensory motor neuropathy with involvement of facial nerve with generalized muscle atrophy and weakness Rheumatoid arthritis History of CVA/TIA COPD not on home oxygen GERD Vocal cord paralysis history Multiple myeloma Anxiety Previous history of smoking DVT prophylaxis hyperkalemia improved Plan: Continue with verapamil , metoprolol, amiodarone and Eliquis.metoprolol will be discontinued in couple days. patient is presently on ciprofloxacin as well as vancomycin vancomycin will be discontinue and upon discharge and Cipro will be continued for 10 days treating for pseudomonal aspiration pneumonia Continue with greg champagnes and he was steroids Prognosis is guarded with multiple medical problems and comorbid conditions. PEG tube feeding. Aspiration precautions and deep breathing exercises.. Repeat basic metabolic profile possibility of discharge tomorrow
[2018-11-04 16:36] LABS: Glucose,Whole Blood 161 mg/dL (75-99)
[2018-11-04] MEDS: CEFEPIME 2 GM in SODIUM CHLORIDE 0.9% 100 ML IVPB SCH (17:22)
--- NOTE | 2018-11-04 19:57 | PN ---
PROGRESS NOTE DATE OF SERVICE: 11/04/2018 REASON FOR FOLLOWUP: Pseudomonas aeruginosa pneumonia. INTERVAL HISTORY: The patient is currently afebrile. The patient has been breathing more comfortably. The patient's cough has decreased in intensity. It is mostly dry in nature now. No chest pain. No nausea or vomiting. No abdominal pain or diarrhea. PHYSICAL EXAMINATION: Blood pressure 110/67 with a pulse of 71, temperature 97.2. He is 96% on 3 L nasal cannula. General description is an elderly male lying in bed in no distress. RESPIRATORY SYSTEM: Unlabored breathing. Decreased breath sounds in the bases. No wheeze. HEART: S1, S2. Irregular rhythm. ABDOMEN: Soft. No tenderness. EXTREMITIES: No edema of the feet. LABS: BUN of 35, creatinine 0.46, hemoglobin 11.7, white count 8.0. Sputum with Pseudomonas aeruginosa that is sensitive to quinolones. DIAGNOSTIC IMPRESSION AND PLAN: Patient with Pseudomonas aeruginosa pneumonia currently. Antibiotic has been switched over to cefepime 2 grams q.12 hours. The patient has just been started on amiodarone. That will contraindicate the use of Cipro on discharge. Will discuss with the admitting physician, trying to get in touch with Cardiology about whether the patient's heart rate can be controlled without amiodarone. If not, he will need a midline for outpatient IV cefepime therapy. Continue with supportive care. MMODL / IJN: [id number] /
[2018-11-04 20:33] LABS: Glucose,Whole Blood 121 mg/dL (75-99)
[2018-11-04] MEDS ORDERED: CIPROFLOXACIN HCL 250 MG TAB PO SCH (21:00)
[2018-11-05] MEDS: CEFEPIME 2 GM in SODIUM CHLORIDE 0.9% 100 ML IVPB SCH ×3 (00:55→19:31)
[2018-11-05] MEDS ORDERED: VANCOMYCIN TROUGH DUE 1 EACH MISC MISCELLANE ONE (05:00)
[2018-11-05 05:49] LABS: HCT 36.6 % (39.0-53.0); HGB 11.5 gm/dL (13.0-17.5); MCHC 31.5 g/dL (31.0-37.0); MCV 101.6 fL (80.0-100.0); Macrocytosis Slight; Mean Platelet Volume 9.3; Platelet Count 177 k/uL (150-450); RDW 13.5 % (11.5-15.5); WBC 7.7 k/uL (3.8-10.6)
[2018-11-05 06:01] LABS: Blood Urea Nitrogen 28 mg/dL (9-20); Calcium 8.4 mg/dL (8.4-10.2); Chloride 89 mmol/L (98-107); Glucose 79 mg/dL (74-99); Potassium 4.5 mmol/L (3.5-5.1); Sodium 131 mmol/L (137-145)
[2018-11-05 06:11] LABS: Anion Gap 0 mmol/L
[2018-11-05] MEDS: VANCOMYCIN 1,500 MG in SODIUM CHLORIDE 0.9% 250 ML IVPB SCH ×2 (06:12→16:43)
[2018-11-05 06:26] LABS: Carbon Dioxide 42 mmol/L (22-30)
[2018-11-05 07:14] LABS: Glucose,Whole Blood 83 mg/dL (75-99)
[2018-11-05 07:30] VITALS: RESP 16
[2018-11-05] MEDS: APIXABAN 5 MG TAB PO SCH (08:21)
[2018-11-05] MEDS: ASPIRIN 81 MG PEG/G-TUBE SCH (08:21)
[2018-11-05] MEDS: VERAPAMIL SR 240 MG TABLET.ER PO SCH (08:22)
[2018-11-05] MEDS: predniSONE 20 MG TAB PO SCH (08:23)
[2018-11-05] MEDS: METOPROLOL TARTRATE 25 MG TAB PO SCH (08:23)
[2018-11-05] MEDS: INSULIN ASPART (NovoLOG) 100 UNIT/ML VIAL SQ SCH ×4 (08:24→20:09)
[2018-11-05] MEDS ORDERED: AMIODARONE 200 MG TAB PO SCH (09:00)
[2018-11-05] MEDS: SYMBICORT 160-4.5 MCG INHALER INHALATION SCH (09:06)
[2018-11-05] MEDS: IPRATROPIUM-ALBUTEROL 3 ML NEB INHALATION SCH ×3 (09:06→16:18)
[2018-11-05 11:17] LABS: Glucose,Whole Blood 124 mg/dL (75-99)
[2018-11-05] MEDS: PANTOPRAZOLE SODIUM 40 MG GRANULE PKT PEG/G-TUBE SCH (11:31)
[2018-11-05] MEDS ORDERED: SODIUM CHLORIDE 0.9% 1,000 ML IV SCH (13:00)
[2018-11-05 15:01] VITALS: BP 106/75; PULSE 92; TEMP 97.9
--- NOTE | 2018-11-05 15:41 | P.PN ---
Subjective We have been asked to see Mr. Ferro again during this hospitalization secondary to uncontrolled ventricular rates. He is currently maintained on metoprolol 50 mg twice a day and verapamil 240 mg daily. Blood pressure currently is 106/75 with a heart rate of 92. Laboratory data reviewed, WBC 7.7, hemoglobin 11.5, platelets 177, sodium 131, potassium 4.5, creatinine 0.36 CO2 level XLII. There was some discussion about possibly starting the patient on amiodarone for better heart rate control at a lower dose of 400 mg daily. However he preferred antibiotic per infectious disease for going home as oral Cipro which is contraindicated along with amiodarone. Apparently there is no other antibiotic choice other than IV antibiotics which would like to try to avoid. Therefore we will discontinue amiodarone and increase metoprolol to 25 mg 3 times a day. He is seen and examined resting comfortably in bed with his at the bedside. He has no active chest discomfort, shortness of breath, dizziness or palpitations. Overall he continues to feel very tired and weak. GENERAL: No acute distress. NECK: Supple without JVD or thyromegaly. LUNGS: Scattered rhonchi, no wheezes or rales. Diminished bilaterally. Respiration equal and unlabored. HEART: Irregular rate and rhythm without murmurs, rubs or gallops. S1 and S2 heard. EXTREMITIES: Normal range of motion, no edema. No clubbing or cyanosis. Peripheral pulses intact. ASSESSMENT Paroxysmal atrial fibrillation with poorly controlled ventricular rates, on long-term anticoagulation with Eliquis Acute on chronic hypoxic respiratory failure secondary to bibasilar pneumonia Bibasilar pneumonia Chronic dysphasia secondary to vocal cord paralysis secondary to CVA, PEG tube in place yet Acute exacerbation of COPD secondary to aspiration Hyponatremia PLAN Discontinue amiodarone, he has only received one dose this morning. Continue verapamil and increase lopressor to 25 mg TID. Lengthy discussion had with the patient and his regrading close blood pressure and heart rate at home. Nurse Practitioner note has been reviewed, I agree with a documented findings and plan of care. Patient was seen and examined. Objective - Vital Signs Vital signs: Vital Signs Temp 97.9 F 11/05/18 15:01 Pulse 92 11/05/18 15:01 Resp 16 11/05/18 15:01 BP 106/75 11/05/18 15:01 Pulse Ox 96 11/05/18 15:01 Intake & Output 11/04/18 11/05/18 11/05/18 18:59 06:59 18:59 Intake Total 543 667 3605 Output Total 400 Balance 087 741 2198 Weight 71 kg Intake: Intake, IV Titration 450 Amount Cefepime 2 gm In Sodium 200 Chloride 0.9% 100 ml @ 200 mls/hr IVPB Q12HR@ 0000,1200 MARILYN Rx#: [id number] Vancomycin 1,500 mg In 250 Sodium Chloride 0.9% 250 ml @ 125 mls/hr IVPB Q8H MARILYN Rx#:[id number] Tube Feeding 640 1040 Output: Urine 400 Other: Voiding Method Toilet Urinal Urinal Diaper Incontinent Incontinent # Voids 1 2 - Labs CBC & Chem 7: 11/05/18 05:31 11/05/18 05:31 Labs: Abnormal Lab Results - Last 24 Hours (Table) 11/04/18 11/04/18 11/05/18 Range/Units 16:34 20:30 05:31 RBC 3.60 L (4.30-5.90) m/uL Hgb 11.5 L (13.0-17.5) gm/dL Hct 36.6 L (39.0-53.0) % MCV 101.6 H (80.0-100.0) fL Sodium (137-145) mmol/L Chloride (98-107) mmol/L Carbon Dioxide (22-30) mmol/L BUN (9-20) mg/dL Creatinine (0.66-1.25) mg/dL POC Glucose (mg/dL) 161 H 121 H (75-99) mg/dL 11/05/18 11/05/18 Range/Units 05:31 11:15 RBC (4.30-5.90) m/uL Hgb (13.0-17.5) gm/dL Hct (39.0-53.0) % MCV (80.0-100.0) fL Sodium 131 L (137-145) mmol/L Chloride 89 L (98-107) mmol/L Carbon Dioxide 42 H* (22-30) mmol/L BUN 28 H (9-20) mg/dL Creatinine 0.36 L (0.66-1.25) mg/dL POC Glucose (mg/dL) 124 H (75-99) mg/dL
[2018-11-05] MEDS ORDERED: METOPROLOL TARTRATE 25 MG TAB PO SCH (16:00)
--- NOTE | 2018-11-05 16:01 | P.DS ---
Providers Date of admission: 10/25/18 00:08 Attending physician: Johnathon España MD Consults: 10/25/18 00:08 Consult Physician Routine Consulting Provider: Gina Magdaleno Consult Reason/Comments: PNA, COPD Do you want consulting provider notified?: Yes 10/26/18 20:38 Consult Physician Routine Consulting Provider: Fabrice Mantilla Consult Reason/Comments: atrial fib Do you want consulting provider notified?: Yes 10/31/18 10:59 Consult Physician Routine Consulting Provider: Darling Reyes Consult Reason/Comments: worsening pnuemonia Do you want consulting provider notified?: Yes 11/04/18 12:26 Consult Physician Routine Consulting Provider: Jonah Orozco Consult Reason/Comments: A.fib with RVR Do you want consulting provider notified?: Yes Primary care physician: Harish Alvarado [facility] Course: 73-year-old male with a known history of facial onset sensory motor neuropathy, multiple myeloma, 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 Patient says that she did have a coughing spell and aspirated. Otherwise denied any fever or chills. Denied any chest pain. No nausea vomiting or diarrhea. No sputum production. Patient thought he has aspirated and came to ER for evaluation. Otherwise no history of heart problems. No leg swelling. Chest x-ray showed bibasilar infiltrate/consolidation. Correlate clinically for intermittently/infectious process. Possible trace pleural effusions. No leukocytosis. EKG showed normal sinus rhythm Patient is tachycardic, tachypneic and hypoxic on admission. 10/26/2018 Patient says that she did have some improvement in the breathing status. Antibiotics have been changed to meropenem as per previous cultures. Pulmonary has seen the patient. Otherwise patient developed atrial fibrillation with RVR. Patient will be transferred to telemetry unit. Started on Cardizem drip and heparin drip will be started. Mark beranrd does have history of paroxysmal atrial fibrillation currently not on any anticoagulation at home. No further nausea vomiting or abdominal pain. No fever no chills. Tolerating PEG tube feeding. Denied any coughing spells again. 10/27/2018 Patient denied any complaints of chest pain or worsening shortness of breath. H eart rate is better controlled. Patient is being continued on heparin drip and Cardizem drip. Her verapamil was started as per cardiology recommendations. Currently on antibiotics in the form of meropenem. Continued on IV steroids and breathing treatments. Pulmonary is following as well. No fever no chills. No nausea vomiting or abdominal pain. Patient did have a coughing spell again this morning. Denied any aspiration.. 10/28/2018 Patient is still complaining of shortness of breath not back to baseline. Heart rate is better controlled. Heparin drip has been discontinued. Patient was started on liquids twice daily. Patient is being continued on breathing treatments and IV steroids and antibiotics in the form of meropenem. Pulmonary and cardiology is on board. 10/29/2018 Patient denied any complaints of chest pain. Shortness of breath is not at baseline. Otherwise heart rate is controlled and being continued on verapamil and liquids. Currently on antibiotics in the form of meropenem. Pulmonary is on board. No fever no chills. No headache or dizziness or lightheadedness. No nausea vomiting or abdominal pain or diarrhea. 10/30/2018 Patient is still having shortness of breath at baseline. Currently on breathing treatments and IV steroids along with antibiotics in the form of meropenem. Repeat chest x-ray was ordered. Pulmonary was contacted for further rec ommendations. No fever no chills. No leukocytosis. Patient does have poor respiratory effort secondary to generalized weakness. Continue to follow closely. No commerce of chest pain. 10/31/2018 Patient says that he is feeling better today. Repeat chest x-ray yesterday showed worsening right lower lobe pneumonia. Patient is being converted on antibiotics in the form of meropenem. ID will be consulted. Patient was encouraged with the breathing and respiratory effort. Anticipate discharge with final antibiotic recommendations. 11/01/2018 Patient is still having some shortness of breath. No chest pain. Sputum Culture was sent. Currently on meropenem. Changed to vancomycin. ID is following. Further recommendations based on the culture report. No fever no chills. Leukocytosis improved. Patient was encouraged with deep breathing exercises. 2018 Patient says that he is feeling better today. Continued on vancomycin. ID is on board. Awaiting final sputum culture report. Further recommendations based on the culture report. Follow-up repeat labs tomorrow. Anticipate discharge next 24-48 hours. 11/03/2018 Patient is feeling much better wanted to go home but patient blood pressure is borderline and patient was started on beta jairon today with borderline blood pressure. Patient is also hyperkalemic with serum potassium of 5.6. Elevated serum potassium is probably because of his diet and PEG tube feedings which was switched to Nepro and with contribution from verapamil. Sputum cultures are negative. Patient is being continued on same antibiotics today. 11/04/2018 Patient's serum potassium improved but patient remains significantly tachycardic at rest discussed with cardiology recommending amiodarone patient will be started on 400 mg of amiodarone and metoprolol will be discontinued in couple days. Verapamil will be continued. Patient is not happy that he is not being discharged today. Sputum cultures are showing Pseudomonas which is sensitive to ciprofloxacin patient will be discharged on pseudomonal dose of ciprofloxacin for 10 days 11/05/2018 Patient is clinically doing well heart rate is well controlled at this point of time patient will not be discharged on amiodarone as it has in traction significant with the ciprofloxacin and patient is being discharged on Cipro 750 twice a day for pseudomonal pneumonia. Patient will receive a second dose of cefepime before his discharge today and will start the Cipro from tomorrow morning amiodarone was discontinued and patient was started on 25 3 times a day. Rate is well controlled patient is definitely high risk for readmission insisting on discharge will be discharged today. - Exam PHYSICAL EXAMINATION: Patient is lying in the bed comfortably, no acute distress, awake alert and oriented.. HEENT: Normocephalic. Neck is supple. Pupils reactive. Nostrils clear. Oral cavity is moist. Ears reveal no drainage. Neck reveals no JVD, carotid bruits, or thyromegaly. CHEST EXAMINATION: Trachea is central. Symmetrical expansion. Bibasilar diminished air entry. Scattered rhonchi. Bibasilar crackles. No wheezing.. CARDIAC: Normal S1, S2 with no gallops. No murmurs , patient is irregularly irregular rhythm tachycardic ABDOMEN: Soft. PEG tube is in place. Bowel sounds normal. No organomegaly. No abdominal bruits. Extremities: reveal no edema. No clubbing or cyanosis Neurologically awake, alert, oriented x3 . Generalized muscle weakness and atrophy. No focal deficits noted Skin: No rash or skin lesions. Psychiatric: Coperative. Nonsuicidal Musculoskeletal: No joint swelling or deformity. Normal range of motion. Assessment and Plan Plan: Aspiration pneumonia. Acute hypoxic respiratory failure on admission. Patient is off oxygen and saturating well. Atrial fibrillation presently rate controlled and patient will be continued on above-mentioned medications upon discharge Patient appears to have persistent atrial fibrillation Dysphagia, currently on PEG tube feeding sensory motor neuropathy with involvement of facial nerve with generalized muscle atrophy and weakness Rheumatoid arthritis History of CVA/TIA COPD not on home oxygen GERD Vocal cord paralysis history Multiple myeloma Anxiety hyperkalemia improved Patient Condition at Discharge: Stable Plan - Discharge Summary New Discharge Prescriptions: New Apixaban [Eliquis] 5 mg PO BID #60 tab Verapamil Sr [Isoptin Sr] 240 mg PO DAILY #30 tablet.er Metoprolol Tartrate [Lopressor] 25 mg PO TID #90 tab Ciprofloxacin HCl [Cipro] 750 mg PO BID #20 tablet predniSONE 10 mg PO DAILY #30 tab Continue Omeprazole 20 mg PEG/G-TUBE BID Loratadine-Pseudoeph 10-240 mg [Claritin-D 24 Hour] 1 tab PEG/G-TUBE DAILY Ipratropium/Albuterol Sulfate [Combivent Respimat Inhaler] 1 puff INHALATION RT-QID Aspirin EC [Ecotrin Low Dose] 81 mg PEG/G-TUBE DAILY Albuterol Sulfate [Proventil Hfa] 2 puff INHALATION RT-QID PRN PRN Reason: Shortness Of Breath guaiFENesin [Mucinex] 600 mg PEG/G-TUBE BID Zolpidem [Ambien] 5 mg PEG/G-TUBE HS PRN PRN Reason: Insomnia Fluticasone/Vilanterol [Breo Ellipta 200-25 Mcg INH] 1 puff INHALATION RT- DAILY Discharge Medication List Omeprazole 20 mg PEG/G-TUBE BID 07/31/14 [History] Ipratropium/Albuterol Sulfate [Combivent Respimat Inhaler] 1 puff INHALATION RT- QID 05/01/17 [History] Loratadine-Pseudoeph 10-240 mg [Claritin-D 24 Hour] 1 tab PEG/G-TUBE DAILY 05/01/17 [History] Albuterol Sulfate [Proventil Hfa] 2 puff INHALATION RT-QID PRN 07/05/18 [History] Aspirin EC [Ecotrin Low Dose] 81 mg PEG/G-TUBE DAILY 01/28/18 [History] guaiFENesin [Mucinex] 600 mg PEG/G-TUBE BID 04/23/18 [History] Zolpidem [Ambien] 5 mg PEG/G-TUBE HS PRN 08/29/18 [History] Fluticasone/Vilanterol [Breo Ellipta 200-25 Mcg INH] 1 puff INHALATION RT-DAILY 10/24/18 [History] Apixaban [Eliquis] 5 mg PO BID #60 tab 11/05/18 [Rx] Ciprofloxacin HCl [Cipro] 750 mg PO BID #20 tablet 11/05/18 [Rx] Metoprolol Tartrate [Lopressor] 25 mg PO TID #90 tab 11/05/18 [Rx] Verapamil Sr [Isoptin Sr] 240 mg PO DAILY #30 tablet.er 11/05/18 [Rx] predniSONE 10 mg PO DAILY #30 tab 11/05/18 [Rx] Follow up Appointment(s)/Referral(s): [facility], [NON-STAFF] - Harish Alvarado DO [Primary Care Provider] - 1-2 days (Please call appointment on day of discharge. ) Darling Reyes MD [STAFF PHYSICIAN] - 11/15/18 10:45 am Keith Dill MD [STAFF PHYSICIAN] - 11/22/18 12:45 pm Gina Magdaleno MD [STAFF PHYSICIAN] - 12/09/18 2:00 pm Ambulatory/Diagnostic Orders: Basic Metabolic Panel [LAB.AMB] Time Frame: 3 Days, Location: None Selected Patient Instructions/Handouts: A-fib (Atrial Fibrillation) (DC), Aspiration Pneumonia (DC), Hyperkalemia (DC), Safe Use of Anticoagulants (DC) Discharge Disposition: HOME WITH HOME HEALTH SERVICES
--- NOTE | 2018-11-05 16:28 | PN ---
PROGRESS NOTE DATE OF SERVICE: 11/05/2018. REASON FOR FOLLOWUP: Pseudomonas aeruginosa pneumonia. INTERVAL HISTORY: The patient is currently afebrile. Patient is breathing comfortably. The patient heart rate is control after adjustment of his metoprolol dose to q.8 hours. The patient denies having any chest pain. Occasional cough. No abdominal pain or any diarrhea. PHYSICAL EXAMINATION: Blood pressure 106/75 with a pulse of 92 temperature 97.9. He is 96% on room air. General description is an elderly male lying in bed in no distress. Respiratory system: Unlabored breathing. Decreased breath sounds at the bases. No wheeze. Heart S1, S2. Regular rate and rhythm. Abdomen soft, no tenderness. LABS: Hemoglobin 11.5, white count 7.7, BUN of 28, creatinine 0.36. DIAGNOSTIC IMPRESSION AND PLAN: Patient with Pseudomonas aeruginosa pneumonia. Patient seemed to have shown clinical improvement. Currently on cefepime. The patient amiodarone has been discontinued. Hence, we will be able to use oral ciprofloxacin 750 twice a day for another 10 days to finish course of therapy. Plan of care discussed with discharging physician. Continue supportive care. MMODL / IJN: [id number] /
[2018-11-05 16:46] LABS: Glucose,Whole Blood 159 mg/dL (75-99)
[2018-11-05 19:22] LABS: Glucose,Whole Blood 115 mg/dL (75-99)
== END 2018-11-05 20:58 | disposition home health service (06) | DRG 177 ==
LOC: EC 22:12 → 4SSUR 10-25 00:08 → 3SCARD 10-26 20:39 → 4SSUR 11-04 21:15
PROVIDERS: ADMIT Internal Medicine; ATTEND Internal Medicine
DX: J69.0 Pneumonitis due to inhalation of food and vomit (principal); J96.21 Acute and chronic respiratory failure with hypoxia; I48.1 Persistent atrial fibrillation; C90.00 Multiple myeloma not having achieved remission; E87.1 Hypo-osmolality and hyponatremia; J44.1 Chronic obstructive pulmonary disease with (acute) exacerbation; J44.0 Chronic obstructive pulmonary disease with (acute) lower respiratory infection; J15.1 Pneumonia due to Pseudomonas; Z86.73 Personal history of transient ischemic attack (TIA), and cerebral infarction without residual deficits; Z80.1 Family history of malignant neoplasm of trachea, bronchus and lung; Z80.0 Family history of malignant neoplasm of digestive organs; Z80.7 Family history of other malignant neoplasms of lymphoid, hematopoietic and related tissues; E86.0 Dehydration; E87.5 Hyperkalemia; F41.9 Anxiety disorder, unspecified; G62.9 Polyneuropathy, unspecified; I48.0 Paroxysmal atrial fibrillation; J38.01 Paralysis of vocal cords and larynx, unilateral; K21.9 Gastro-esophageal reflux disease without esophagitis; K22.70 Barrett's esophagus without dysplasia; M06.9 Rheumatoid arthritis, unspecified; R47.02 Dysphasia; Z79.01 Long term (current) use of anticoagulants; Z79.899 Other long term (current) drug therapy; Z82.49 Family history of ischemic heart disease and other diseases of the circulatory system; Z87.01 Personal history of pneumonia (recurrent); Z87.891 Personal history of nicotine dependence; Z93.1 Gastrostomy status; Z99.81 Dependence on supplemental oxygen; G71.09 Other specified muscular dystrophies; Z79.82 Long term (current) use of aspirin; Z88.1 Allergy status to other antibiotic agents; Z88.0 Allergy status to penicillin; Z88.2 Allergy status to sulfonamides
CPT/HCPCS: 36415; 71045; 71046; 80048; 80053; 80202; 81003; 83605; 83735; 84443; 85025; 85027; 85610; 85730; 87040; 87070; 87077; 87186; 87205; 87502; 93005; 94640; 94760; 96361; 96365; 96366; 96367; 96375; 96376; 99285

== ENCOUNTER 2018-11-06 15:22 | Inpatient (IN) | payer MEDICARE ==
--- NOTE | 2018-11-06 15:59 | ED ---
General Adult HPI - General Chief complaint: Recheck/Abnormal Lab/Rx Stated complaint: LOW BP Source: patient, EMS, RN notes reviewed, old records reviewed Mode of arrival: EMS Limitations: no limitations - History of Present Illness Initial comments: Chief complaint and history of present illness this is a 73-year-old man with multiple medical problems. Recently discharged just yesterday after having been in hospital for approximately 12 days for aspiration pneumonia. Family was checking his blood pressure at home and reported to be low. EMS run sheet states the blood pressure at home was 86 systolic. Around emergency room it was 110/48. Patient has no complaints of pain, no shortness of breath. He reports he slightly dizzy. - Related Data Home Medications Medication Instructions Recorded Confirmed Omeprazole 20 mg PEG/G-TUBE BID 07/31/14 11/06/18 Loratadine-Pseudoeph 10-240 mg 1 tab PEG/G-TUBE DAILY 05/01/17 11/06/18 [Claritin-D 24 Hour] Aspirin EC [Ecotrin Low Dose] 81 mg PEG/G-TUBE DAILY 01/28/18 11/06/18 guaiFENesin [Mucinex] 600 mg PEG/G-TUBE BID 04/23/18 11/06/18 Fluticasone/Vilanterol [Breo 1 puff INHALATION RT-DAILY 10/24/18 11/06/18 Ellipta 200-25 Mcg INH] Albuterol Inhaler [Ventolin Hfa 1 - 2 puff INHALATION RT-Q6H PRN 11/06/18 11/06/18 Inhaler] Apixaban [Eliquis] 5 mg PEG/G-TUBE BID 11/06/18 11/06/18 Ipratropium-Albuterol Nebulize 3 ml INHALATION RT-QID PRN 11/06/18 11/06/18 [Duoneb 0.5 mg-3 mg/3 ml Soln] Metoprolol Tartrate [Lopressor] 25 mg PEG/G-TUBE TID 11/06/18 11/06/18 Verapamil HCl [Verapamil ER] 240 mg PEG/G-TUBE DAILY 11/06/18 11/06/18 Zolpidem [Ambien] 10 mg PEG/G-TUBE HS PRN 11/06/18 11/06/18 predniSONE See Taper PEG/G-TUBE DIRECTED 11/06/18 11/06/18 Previous Rx's Medication Instructions Recorded Ciprofloxacin HCl [Cipro] 750 mg PO BID #20 tablet 11/05/18 Allergies Allergy/AdvReac Type Severity Reaction Status Date / Time Penicillins Allergy Itching Verified 11/06/18 16:07 piperacillin [From Zosyn] Allergy Itching Verified 11/06/18 16:07 Sulfa (Sulfonamide Allergy Rash/Hives Verified 11/06/18 16:07 Antibiotics) tazobactam [From Zosyn] Allergy Itching Verified 11/06/18 16:07 Review of Systems ROS Statement: Those systems with pertinent positive or pertinent negative responses have been documented in the HPI. Review of systems. Patient's denying any significant changes over before. As noted above he hasn't significant multiple medical issues. Including a blood disorder, COPD, neuromuscular disorder FOSMN, CVA, GERD, RA. Also history of vocal cord paralysis family history includes colon cancer, sarcoidosis, lung cancer, hypertension and lymphoma.. Patient is fed through a PEG tube Past surgeries include appendectomy, hernia repair, PEG tube, nasal reduction, left bunionectomy, hemorrhoidectomy, tonsillectomy. Had a coughing spell proximal for 2 weeks ago resulting in aspiration pneumonia. He was admitted that time for further evaluation and management. Also has a history of COPD. Patient is an ex-smoker no alcohol use. ALLERGIES include penicillin, Zosyn, sulfa. ROS Other: All systems not noted in ROS Statement are negative. 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 Gaping esophagus, barretts esophagus. 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 Nasal reduction, PEG tube placement , local cord jonas rgery, Additional Past Anesthesia/Blood Transfusion Reaction / Comment(s): PARALYZED VOCAL CHORDS Past Psychological History: Anxiety Smoking Status: Former smoker Past Alcohol Use History: Occasional Past Drug Use History: None Reported - Past Family History Sister(s) Additional Family Medical History / Comment(s): passed colon CA Brother(s) Additional Family Medical History / Comment(s): sarcidosis Mother Additional Family Medical History / Comment(s): lung CA Son(s) Family Medical History: Hypertension Additional Family Medical History / Comment(s): lymphoma, sarcoidosis General Exam - General Exam Comments Initial Comments: General: The patient is awake and alert, presents via ambulance because of low blood pressure at home as observed by family and EMS. Patient reports she was slightly dizzy at home. Denying any chest pain. Vital signs here in emergency room showed a temperature 98.2 axillary pulse 61 respiratory rate 18 pulse ox 99% on 2 L and blood pressure 110/48 Eye: Pupils are equal, round and reactive to light, extra-ocular movements are intact; there is normal conjunctiva bilaterally. No signs of icterus. Ears, nose, mouth and throat: Dry mucous membranes but the patient states he is able to drink water. Neck: The neck is supple, there is no tenderness. Cardiovascular: There is a regular rate and rhythm. No murmur, rub or gallop is appreciated. Respiratory: Lungs are clear to auscultation, respirations are non-labored, breath sounds are equal. No wheezes, stridor, rales, or rhonchi. Patient is on 2 L 24 hours a day. Currently denying shortness of breath. Recently in hospital for aspirati on pneumonia and discharged just yesterday. Gastrointestinal: Soft, non-distended, non-tender abdomen without masses or organomegaly noted. . No CVA tenderness. Bowel sounds are unremarkable. Patient had a feeding PEG tube. Rectal examination soft stool, black stool. Back: Currently denying back pain Musculoskeletal: Normal ROM, no tenderness, minimal edema denying calf or leg pain. Neurological: Patient has a neuromuscular disorder, FOSMN focal onset sensory motor neuropathy. Skin: Skin is warm and dry and no rashes or lesions are noted. Psychiatric: Cooperative, . Limitations: no limitations Course Vital Signs 11/06/18 11/06/18 15:24 16:24 Temperature 98.2 F Pulse Rate 61 Pulse Rate [ 59 L Right Sitting Pulse Oximetery ] Pulse Rate [ 61 Right Supine Pulse Oximetery ] Respiratory 18 18 Rate Blood Pressure 110/48 Blood Pressure 93/67 [Left Arm Sitting] Blood Pressure 94/71 [Left Arm Supine] O2 Sat by Pulse 99 Oximetry EKG Findings - EKG Comments: EKG Findings:: EKG was done and reviewed at 1559 showing rate controlled A. fib rate 69. QRS [address] Johns Medical Decision Making - Medical Decision Making Medical decision making; the patient is brought to the emergency room because of low blood pressure at home confirmed by EMS upon their arrival. The patient's labs show white count of 8 hemoglobin 11 hematocrit of 33, INR 1.0. The patient's potassium is 4.5 with BUN of 42 creatinine 0.5 one a GFR of 90. Glucose 133. BNP 2570, troponin less than 0.012. The patient's hemoglobin approximately 2 weeks ago was 14 with hematocrit of 42, today's hemoglobin is 11 with a hematocrit of 33. No history of bleeding. Patient is on eliquis for A. fib. The patient was asked about stool color he said is been very dark lately. Rectal examination found black stool. Sample sent for occult testing. Case discussed with Dr. Bernstein, on-call for Dr. Matthews. Patient be admitted his service. L Oquist to be stopped at this time. Patient received IV fluids. He will have bed rest with bedside commode with assistance. He'll have serial H&H. - Lab Data Result diagrams: 11/06/18 15:51 11/06/18 15:51 Lab Results 11/06/18 11/06/18 11/06/18 Range/Units 15:51 15:51 15:51 WBC 8.5 (3.8-10.6) k/uL RBC 3.34 L (4.30-5.90) m/uL Hgb 11.1 L (13.0-17.5) gm/dL Hct 33.8 L (39.0-53.0) % MCV 101.3 H (80.0-100.0) fL MCH 33.2 (25.0-35.0) pg MCHC 32.8 (31.0-37.0) g/dL RDW 14.6 (11.5-15.5) % Plt Count 184 (150-450) k/uL Neutrophils % 93 % Lymphocytes % 4 % Monocytes % 2 % Eosinophils % 0 % Basophils % 0 % Neutrophils # 7.9 H (1.3-7.7) k/uL Lymphocytes # 0.3 L (1.0-4.8) k/uL Monocytes # 0.2 (0-1.0) k/uL Eosinophils # 0.0 (0-0.7) k/uL Basophils # 0.0 (0-0.2) k/uL Macrocytosis Slight PT (9.0-12.0) sec INR (<1.2) APTT (22.0-30.0) sec Sodium 132 L (137-145) mmol/L Potassium 4.5 (3.5-5.1) mmol/L Chloride 91 L (98-107) mmol/L Carbon Dioxide 39 H (22-30) mmol/L Anion Gap 2 mmol/L BUN 42 H (9-20) mg/dL Creatinine 0.51 L (0.66-1.25) mg/dL Est GFR (CKD-EPI)AfAm >90 (>60 ml/min/1.73 sqM) Est GFR (CKD-EPI)NonAf >90 (>60 ml/min/1.73 sqM) Glucose 133 H (74-99) mg/dL Plasma Lactic Acid Cristian 1.4 (0.7-2.0) mmol/L Calcium 8.4 (8.4-10.2) mg/dL Total Bilirubin 0.8 (0.2-1.3) mg/dL AST 35 (17-59) U/L ALT 52 (21-72) U/L Alkaline Phosphatase 66 (38-126) U/L Troponin I (0.000-0.034) ng/mL NT-Pro-B Natriuret Pep pg/mL Total Protein 5.1 L (6.3-8.2) g/dL Albumin 2.6 L (3.5-5.0) g/dL Urine Color Urine Appearance (Clear) Urine pH (5.0-8.0) Ur Specific [place] (1.001-1.035) Urine Protein (Negative) Urine Glucose (UA) (Negative) Urine Ketones (Negative) Urine Blood (Negative) Urine Nitrite (Negative) Urine Bilirubin (Negative) Urine Urobilinogen (<2.0) mg/dL Ur Leukocyte Esterase (Negative) Urine WBC (0-5) /hpf Ur Squamous Epith Cells (0-4) /hpf Urine Bacteria (None) /hpf Hyaline Casts (0-2) /lpf Urine Mucus (None) /hpf Stool Occult Blood (Negative) 11/06/18 11/06/18 11/06/18 Range/Units 15:51 15:51 15:51 WBC (3.8-10.6) k/uL RBC (4.30-5.90) m/uL Hgb (13.0-17.5) gm/dL Hct (39.0-53.0) % MCV (80.0-100.0) fL MCH (25.0-35.0) pg MCHC (31.0-37.0) g/dL RDW (11.5-15.5) % Plt Count (150-450) k/uL Neutrophils % % Lymphocytes % % Monocytes % % Eosinophils % % Basophils % % Neutrophils # (1.3-7.7) k/uL Lymphocytes # (1.0-4.8) k/uL Monocytes # (0-1.0) k/uL Eosinophils # (0-0.7) k/uL Basophils # (0-0.2) k/uL Macrocytosis PT 10.5 (9.0-12.0) sec INR 1.0 (<1.2) APTT 24.9 (22.0-30.0) sec Sodium (137-145) mmol/L Potassium (3.5-5.1) mmol/L Chloride (98-107) mmol/L Carbon Dioxide (22-30) mmol/L Anion Gap mmol/L BUN (9-20) mg/dL Creatinine (0.66-1.25) mg/dL Est GFR (CKD-EPI)AfAm (>60 ml/min/1.73 sqM) Est GFR (CKD-EPI)NonAf (>60 ml/min/1.73 sqM) Glucose (74-99) mg/dL Plasma Lactic Acid Cristian (0.7-2.0) mmol/L Calcium (8.4-10.2) mg/dL Total Bilirubin (0.2-1.3) mg/dL AST (17-59) U/L ALT (21-72) U/L Alkaline Phosphatase (38-126) U/L Troponin I <0.012 (0.000-0.034) ng/mL NT-Pro-B Natriuret Pep 2570 pg/mL Total Protein (6.3-8.2) g/dL Albumin (3.5-5.0) g/dL Urine Color Urine Appearance (Clear) Urine pH (5.0-8.0) Ur Specific [place] (1.001-1.035) Urine Protein (Negative) Urine Glucose (UA) (Negative) Urine Ketones (Negative) Urine Blood (Negative) Urine Nitrite (Negative) Urine Bilirubin (Negative) Urine Urobilinogen (<2.0) mg/dL Ur Leukocyte Esterase (Negative) Urine WBC (0-5) /hpf Ur Squamous Epith Cells (0-4) /hpf Urine Bacteria (None) /hpf Hyaline Casts (0-2) /lpf Urine Mucus (None) /hpf Stool Occult Blood (Negative) 11/06/18 11/06/18 Range/Units 16:30 17:00 WBC (3.8-10.6) k/uL RBC (4.30-5.90) m/uL Hgb (13.0-17.5) gm/dL Hct (39.0-53.0) % MCV (80.0-100.0) fL MCH (25.0-35.0) pg MCHC (31.0-37.0) g/dL RDW (11.5-15.5) % Plt Count (150-450) k/uL Neutrophils % % Lymphocytes % % Monocytes % % Eosinophils % % Basophils % % Neutrophils # (1.3-7.7) k/uL Lymphocytes # (1.0-4.8) k/uL Monocytes # (0-1.0) k/uL Eosinophils # (0-0.7) k/uL Basophils # (0-0.2) k/uL Macrocytosis PT (9.0-12.0) sec INR (<1.2) APTT (22.0-30.0) sec Sodium (137-145) mmol/L Potassium (3.5-5.1) mmol/L Chloride (98-107) mmol/L Carbon Dioxide (22-30) mmol/L Anion Gap mmol/L BUN (9-20) mg/dL Creatinine (0.66-1.25) mg/dL Est GFR (CKD-EPI)AfAm (>60 ml/min/1.73 sqM) Est GFR (CKD-EPI)NonAf (>60 ml/min/1.73 sqM) Glucose (74-99) mg/dL Plasma Lactic Acid Cristian (0.7-2.0) mmol/L Calcium (8.4-10.2) mg/dL Total Bilirubin (0.2-1.3) mg/dL AST (17-59) U/L ALT (21-72) U/L Alkaline Phosphatase (38-126) U/L Troponin I (0.000-0.034) ng/mL NT-Pro-B Natriuret Pep pg/mL Total Protein (6.3-8.2) g/dL Albumin (3.5-5.0) g/dL Urine Color Yellow Urine Appearance Cloudy (Clear) Urine pH 6.0 (5.0-8.0) Ur Specific [place] 1.018 (1.001-1.035) Urine Protein Trace H (Negative) Urine Glucose (UA) Negative (Negative) Urine Ketones Negative (Negative) Urine Blood Negative (Negative) Urine Nitrite Negative (Negative) Urine Bilirubin Negative (Negative) Urine Urobilinogen <2.0 (<2.0) mg/dL Ur Leukocyte Esterase Negative (Negative) Urine WBC 5 (0-5) /hpf Ur Squamous Epith Cells 1 (0-4) /hpf Urine Bacteria Rare H (None) /hpf Hyaline Casts 1 (0-2) /lpf Urine Mucus Occasional H (None) /hpf Stool Occult Blood Positive (Negative) Disposition Clinical Impression: Hypotension due to medication, Hypotension due to blood loss Disposition: ADMITTED IP TO THIS HOSP Condition: Serious Is patient prescribed a controlled substance at d/c from ED?: No Referrals: Harish Alvarado DO [Primary Care Provider] - 1-2 days
[2018-11-06 16:14] LABS: Basophils % (A) 0 %; Eosinophils % (A) 0 %; HCT 33.8 % (39.0-53.0); HGB 11.1 gm/dL (13.0-17.5); Lymphocytes # (A) 0.3 k/uL (1.0-4.8); Lymphocytes % (A) 4 %; MCH 33.2 pg (25.0-35.0); MCHC 32.8 g/dL (31.0-37.0); MCV 101.3 fL (80.0-100.0); Macrocytosis Slight; Mean Platelet Volume 9.7; Monocytes # (A) 0.2 k/uL (0-1.0); Monocytes % (A) 2 %; Neutrophils # (A) 7.9 k/uL (1.3-7.7); Neutrophils % (A) 93 %; Platelet Count 184 k/uL (150-450); RBC 3.34 m/uL (4.30-5.90); RDW 14.6 % (11.5-15.5); WBC 8.5 k/uL (3.8-10.6)
[2018-11-06 16:20] LABS: Partial Thromboplastin Time 24.9 sec (22.0-30.0); Prothrombin Time 10.5 sec (9.0-12.0)
[2018-11-06 16:29] LABS: ALT 52 U/L (21-72); AST 35 U/L (17-59); Albumin 2.6 g/dL (3.5-5.0); Alkaline Phosphatase 66 U/L (38-126); Anion Gap 2 mmol/L; Blood Urea Nitrogen 42 mg/dL (9-20); Calcium 8.4 mg/dL (8.4-10.2); Carbon Dioxide 39 mmol/L (22-30); Chloride 91 mmol/L (98-107); Glucose 133 mg/dL (74-99); Potassium 4.5 mmol/L (3.5-5.1); Sodium 132 mmol/L (137-145); Total Bilirubin 0.8 mg/dL (0.2-1.3); Total Protein 5.1 g/dL (6.3-8.2)
--- NOTE | 2018-11-06 16:32 | XR ---
EXAMINATION TYPE: XR chest 2V DATE OF EXAM: 11/06/2018 COMPARISON: 10/30/2018 HISTORY: Atrial fibrillation TECHNIQUE: Frontal and lateral views of the chest are obtained. FINDINGS: . There is airspace consolidation at the right lung base. There is moderate right pleural effusion. T here is mild pulmonary vascular congestion. There is minimal infiltrate left lower lobe. There are ch est leads. Bony thorax appears intact. IMPRESSION: Congestive heart failure. Right lower lobe pneumonia and pleural fluid. Small left pleural effusion. No change.
[2018-11-06] MEDS ORDERED: SODIUM CHLORIDE 0.9% 500 ML 500 ML IV ONE (16:54)
[2018-11-06 17:11] LABS: Appearance,Urine Cloudy (Clear); Bacteria,Urine Rare /hpf; Bilirubin,Urine Negative (Negative); Blood,Urine Negative (Negative); Color,Urine Yellow; Glucose,Urine (UA) Negative (Negative); Hyaline Casts,Urine 1 /lpf (0-2); Ketones,Urine Negative (Negative); Leukocyte Esterase,Urine Negative (Negative); Mucus,Urine Occasional /hpf; Nitrite,Urine Negative (Negative); Protein,Urine Trace (Negative); Specific Gravity,Urine 1.018 (1.001-1.035); Squamous Epithelial Cell,Urine 1 /hpf (0-4); Urobilinogen,Urine <2.0 mg/dL (<2.0)
[2018-11-06] MEDS ORDERED: ACETAMINOPHEN TAB 325 MG TAB PO PRN (17:17)
[2018-11-06] MEDS ORDERED: NALOXONE 0.4 MG/ML 1 ML VIAL IV PRN (17:17)
[2018-11-06] MEDS ORDERED: ALBUTEROL NEBULIZED 2.5 MG/3 ML INHALATION PRN (17:24)
[2018-11-06] MEDS: SODIUM CHLORIDE 0.9% 1,000 ML IV SCH (18:04)
[2018-11-06] MEDS: CIPROFLOXACIN HCL 250 MG TAB PO SCH (21:29)
[2018-11-06] MEDS: FAMOTIDINE 20 MG TAB PO SCH (21:29)
[2018-11-07 06:39] LABS: Basophils % (A) 0 %; Eosinophils % (A) 0 %; HCT 36.7 % (39.0-53.0); HGB 11.5 gm/dL (13.0-17.5); Lymphocytes # (A) 0.6 k/uL (1.0-4.8); Lymphocytes % (A) 5 %; MCH 31.9 pg (25.0-35.0); MCHC 31.4 g/dL (31.0-37.0); MCV 101.4 fL (80.0-100.0); Macrocytosis Slight; Mean Platelet Volume 9.3; Monocytes # (A) 0.5 k/uL (0-1.0); Monocytes % (A) 4 %; Neutrophils # (A) 10.9 k/uL (1.3-7.7); Neutrophils % (A) 90 %; Platelet Count 183 k/uL (150-450); RBC 3.62 m/uL (4.30-5.90); RDW 13.5 % (11.5-15.5); WBC 12.1 k/uL (3.8-10.6)
[2018-11-07] MEDS: SODIUM CHLORIDE 0.9% 1,000 ML IV SCH ×2 (06:48→22:38)
[2018-11-07] MEDS: SYMBICORT 160-4.5 MCG INHALER INHALATION SCH ×2 (08:02→21:14)
[2018-11-07] MEDS: IPRATROPIUM-ALBUTEROL 3 ML NEB INHALATION PRN ×2 (08:03→12:52)
[2018-11-07] MEDS ORDERED: LORATADINE 10 MG TAB PEG/G-TUBE PRN (11:54)
[2018-11-07] MEDS ORDERED: predniSONE 10 MG TAB PEG/G-TUBE SCH ×2 (12:00)
--- NOTE | 2018-11-07 14:06 | P.HPIM ---
History of Present Illness Patient is a pleasant 71-year-old gentleman was recently discharged from the hospital after he was treated for aspiration pneumonia and atrial fibrillation. Multiple medication agents were made during that hospital patient because of the drug interactions and his blood pressure at that time was borderline during that hospitalization. Patient was finally discharged on verapamil and metoprolol for atrial fibrillation rate controlled on Eliquis. Patient is doing well except for his blood pressures are quite low with systolics going up to low 80s because of which her family is concerned brought him to ER in ER his blood pressure is 1 10 x 48 although as per EMS documentation his blood pressure was running in 80 systolic. Patient to felt a little bit dizzy denied any syncopal episode denied any nausea vomiting abdominal pain. Patient was comparing of dark stools 3 yesterday with some blood in the stools. Patient was started on Eliquis is also on Plavix at home. Patient on Eliquis for atrial fibrillation. This is being held presently patient hemoglobin is fairly stable and at 11 now we'll repeat hemoglobin again tomorrow close clinical monitoring patient will be started on Protonix for this. Patient is presently on ciprofloxacin which she is supposed to complete therapy of 10 days total from his last discharge for his pseudomonal pneumonia. Because of significant interaction between Cipro and amiodarone basia gore was not discharged on amiodarone didn't last hospitalization. Review of Systems REVIEW OF SYSTEMS: CONSTITUTIONAL: No fever, no malaise, no fatigue. HEENT: No recent visual problems or hearing problems. Denied any sore throat. CARDIOVASCULAR: No chest pain, orthopnea, PND, no palpitations, no syncope. PULMONARY: No shortness of breath, no cough, no hemoptysis. GASTROINTESTINAL: No diarrhea, no nausea, no vomiting, no abdominal pain. NEUROLOGICAL: No headaches, no weakness, no numbness. HEMATOLOGICAL: Denies any bleeding or petechiae. GENITOURINARY: Denies any burning micturition, frequency, or urgency. MUSCULOSKELETAL/RHEUMATOLOGICAL: Denies any joint pain, swelling, or any muscle pain. ENDOCRINE: Denies any polyuria or polydipsia. The rest of the 14-point review of systems is negative. 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 Gaping esophagus, barretts esophagus. 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 Nasal reduction, PEG tube placement , local cord surgery, Additional Past Anesthesia/Blood Transfusion Reaction / Comment(s): PARALYZED VOCAL CHORDS Past Psychological History: Anxiety Smoking Status: Former smoker Past Alcohol Use History: Occasional Additional Past Alcohol Use History / Comment(s): Patient started smoking 1961 and quit in 1971-smoked 1 ppd. He lives at home with his . 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 There are no animals in the home. He enjoys deer hunting. He has traveled throughout the [place] with his and cruises to [place] in the [employer] [facility]. [facility]. He uses a cane for ambulation. Past Drug Use History: None Reported - Past Family History Sister(s) Additional Family Medical History / Comment(s): passed colon CA Brother(s) Additional Family Medical History / Comment(s): sarcidosis Mother Additional Family Medical History / Comment(s): lung CA Son(s) Family Medical History: Hypertension Additional Family Medical History / Comment(s): lymphoma, sarcoidosis Medications and Allergies Home Medications Medication Instructions Recorded Confirmed Type Omeprazole 20 mg PEG/G-TUBE BID 07/31/14 11/06/18 History Loratadine-Pseudoeph 10-240 mg 1 tab PEG/G-TUBE DAILY 05/01/17 11/06/18 History [Claritin-D 24 Hour] Aspirin EC [Ecotrin Low Dose] 81 mg PEG/G-TUBE DAILY 01/28/18 11/06/18 History guaiFENesin [Mucinex] 600 mg PEG/G-TUBE BID 04/23/18 11/06/18 History Fluticasone/Vilanterol [Breo 1 puff INHALATION RT-DAILY 10/24/18 11/06/18 History Ellipta 200-25 Mcg INH] Ciprofloxacin HCl [Cipro] 750 mg PO BID #20 tablet 11/05/18 11/06/18 Rx Albuterol Inhaler [Ventolin Hfa 1 - 2 puff INHALATION RT-Q6H PRN 11/06/18 11/06/18 History Inhaler] Apixaban [Eliquis] 5 mg PEG/G-TUBE BID 11/06/18 11/06/18 History Ipratropium-Albuterol Nebulize 3 ml INHALATION RT-QID PRN 11/06/18 11/06/18 History [Duoneb 0.5 mg-3 mg/3 ml Soln] Metoprolol Tartrate [Lopressor] 25 mg PEG/G-TUBE TID 11/06/18 11/06/18 History Verapamil HCl [Verapamil ER] 240 mg PEG/G-TUBE DAILY 11/06/18 11/06/18 History Zolpidem [Ambien] 10 mg PEG/G-TUBE HS PRN 11/06/18 11/06/18 History predniSONE See Taper PEG/G-TUBE DIRECTED 11/06/18 11/06/18 History Allergies Allergy/AdvReac Type Severity Reaction Status Date / Time Penicillins Allergy Itching Verified 11/06/18 16:07 piperacillin [From Zosyn] Allergy Itching Verified 11/06/18 16:07 Sulfa (Sulfonamide Allergy Rash/Hives Verified 11/06/18 16:07 Antibiotics) tazobactam [From Zosyn] Allergy Itching Verified 11/06/18 16:07 Physical Exam Vitals: Vital Signs Temp Pulse Pulse Pulse Pulse Resp BP 11/07/18 13:04 72 11/07/18 12:52 68 11/07/18 11:52 81 61 18 11/07/18 11:02 97.6 F 81 18 11/07/18 08:14 92 11/07/18 08:03 92 11/07/18 08:00 97.6 F 120 H 61 18 11/07/18 04:00 97 F L 90 16 11/07/18 00:00 96 F L 80 16 11/06/18 20:00 97 F L 90 16 11/06/18 18:50 98.3 F 88 18 11/06/18 18:05 97.3 F L 79 18 116/87 11/06/18 17:26 71 18 102/74 11/06/18 16:24 59 L 61 18 11/06/18 15:24 98.2 F 61 18 110/48 BP BP Pulse Ox 11/07/18 13:04 11/07/18 12:52 11/07/18 11:52 11/07/18 11:02 104/73 94 L 11/07/18 08:14 11/07/18 08:03 11/07/18 08:00 117/95 96 11/07/18 04:00 114/69 3 L 11/07/18 00:00 118/76 96 11/06/18 20:00 113/82 98 11/06/18 18:50 111/78 98 11/06/18 18:05 98 11/06/18 17:26 98 11/06/18 16:24 93/67 94/71 11/06/18 15:24 99 Intake and Output 11/06/18 11/07/18 11/07/18 22:59 06:59 14:59 Intake Total 240 Output Total 50 Balance -50 240 Intake: Oral 240 Output: Urine 50 Other: # Voids 1 1 Weight 71.214 kg 73.3 kg PHYSICAL EXAMINATION: GENERAL: The patient is alert and oriented x3, not in any acute distress. Well developed, well nourished. She does have speech about his which are chronic. HEENT: Pupils are round and equally reacting to light. EOMI. No scleral icterus. No conjunctival pallor. Normocephalic, atraumatic. No pharyngeal erythema. No thyromegaly. CARDIOVASCULAR: S1 and S2 present. No murmurs, rubs, or gallops. PULMONARY: Chest is clear to auscultation, no wheezing or crackles. ABDOMEN: Soft, nontender, nondistended, normoactive bowel sounds. No palpable organomegaly. has a PEG tube in place PEG tube site doesn't appear to be infected at this time. MUSCULOSKELETAL: No joint swelling or deformity. EXTREMITIES: No cyanosis, clubbing, or pedal edema. NEUROLOGICAL: Gross neurological examination did not reveal any focal deficits. SKIN: No rashes. Results CBC & Chem 7: 11/07/18 06:12 11/06/18 15:51 Labs: Abnormal Lab Results - Last 24 Hours (Table) 11/06/18 11/06/18 11/06/18 Range/Units 15:51 15:51 16:30 WBC (3.8-10.6) k/uL RBC 3.34 L (4.30-5.90) m/uL Hgb 11.1 L (13.0-17.5) gm/dL Hct 33.8 L (39.0-53.0) % MCV 101.3 H (80.0-100.0) fL Neutrophils # 7.9 H (1.3-7.7) k/uL Lymphocytes # 0.3 L (1.0-4.8) k/uL Sodium 132 L (137-145) mmol/L Chloride 91 L (98-107) mmol/L Carbon Dioxide 39 H (22-30) mmol/L BUN 42 H (9-20) mg/dL Creatinine 0.51 L (0.66-1.25) mg/dL Glucose 133 H (74-99) mg/dL Total Protein 5.1 L (6.3-8.2) g/dL Albumin 2.6 L (3.5-5.0) g/dL Urine Protein Trace H (Negative) Urine Bacteria Rare H (None) /hpf Urine Mucus Occasional H (None) /hpf 11/07/18 Range/Units 06:12 WBC 12.1 H (3.8-10.6) k/uL RBC 3.62 L (4.30-5.90) m/uL Hgb 11.5 L (13.0-17.5) gm/dL Hct 36.7 L (39.0-53.0) % MCV 101.4 H (80.0-100.0) fL Neutrophils # 10.9 H (1.3-7.7) k/uL Lymphocytes # 0.6 L (1.0-4.8) k/uL Sodium (137-145) mmol/L Chloride (98-107) mmol/L Carbon Dioxide (22-30) mmol/L BUN (9-20) mg/dL Creatinine (0.66-1.25) mg/dL Glucose (74-99) mg/dL Total Protein (6.3-8.2) g/dL Albumin (3.5-5.0) g/dL Urine Protein (Negative) Urine Bacteria (None) /hpf Urine Mucus (None) /hpf Assessment and Plan Plan: -Hypotension: Secondary to multiple medication changes that were made during last hospitalization. Patient blood pressure is borderline unfortunately there is nothing much that can be done regarding his of blood pressure medications except of monitoring here for couple days with the same medications that his verapamil and metoprolol. -Possible upper GI bleed: As patient is not wheezing at this time I'll try to discontinue oral prednisone unless his blood pressure drops and use inhaled grayson roids for his COPD along with Protonix twice a day close monitoring for any more GI bleed if at all that happens patient will need upper GI endoscopy and gastroenterology was consulted -Dysphagia chronic patient has PEG tube feedings presently which will be continued -Persistent atrial fibrillation presently rate with mildly increased heart rate continue with present regimen and monitor closely and titrate his medications for heart rate control depending on the blood pressure and heart rate and hold off anticoagulation because of this possible GI bleed [facility] TIA in the past -Recent pseudomonal pneumonia for which patient will be continued on ciprofloxacin. -Gastroesophageal reflux disease -Vocal cord paralysis -Multiple myeloma Has an anxiety disorder
[2018-11-07] MEDS: CIPROFLOXACIN HCL 250 MG TAB PO SCH ×2 (14:09→22:30)
[2018-11-07] MEDS: METOPROLOL TARTRATE 25 MG TAB PEG/G-TUBE SCH ×3 (14:09→22:31)
[2018-11-07] MEDS: FAMOTIDINE 20 MG TAB PO SCH (14:37)
[2018-11-07] MEDS: VERAPAMIL SR 240 MG TABLET.ER PO SCH (16:35)
[2018-11-07 17:18] LABS: Glucose,Whole Blood 129 mg/dL (75-99)
[2018-11-07 17:35] VITALS: BMI 23.1
[2018-11-07 20:28] LABS: Glucose,Whole Blood 106 mg/dL (75-99)
[2018-11-08 06:57] LABS: Glucose,Whole Blood 76 mg/dL (75-99)
[2018-11-08] MEDS: IPRATROPIUM-ALBUTEROL 3 ML NEB INHALATION PRN ×4 (07:52→19:34)
[2018-11-08] MEDS: SYMBICORT 160-4.5 MCG INHALER INHALATION SCH ×2 (07:52→19:32)
[2018-11-08] MEDS: PANTOPRAZOLE 40 MG/10 ML VIAL IVP SCH (08:35)
[2018-11-08] MEDS: METOPROLOL TARTRATE 25 MG TAB PEG/G-TUBE SCH (08:36)
[2018-11-08] MEDS: CIPROFLOXACIN HCL 250 MG TAB PO SCH ×2 (08:37→22:34)
[2018-11-08] MEDS: SODIUM CHLORIDE 0.9% 1,000 ML IV SCH ×2 (08:46→22:13)
[2018-11-08] MEDS ORDERED: PSEUDOEPHEDRINE 30 MG TAB PEG/G-TUBE PRN (09:00)
[2018-11-08 11:14] LABS: Glucose,Whole Blood 121 mg/dL (75-99)
[2018-11-08] MEDS: VERAPAMIL SR 240 MG TABLET.ER PO SCH (12:13)
--- NOTE | 2018-11-08 16:13 | P.PN ---
Subjective 71-year-old gentleman was recently discharged from the hospital after he was treated for aspiration pneumonia and atrial fibrillation. Multiple medication agents were made during that hospital patient because of the drug interactions and his blood pressure at that time was borderline during that hospitalization. Patient was finally discharged on verapamil and metoprolol for atrial fibrillation rate controlled on Eliquis. Patient is doing well except for his blood pressures are quite low with systolics going up to low 80s because of which her family is concerned brought him to ER in ER his blood pressure is 1 10 x 48 although as per EMS documentation his blood pressure was running in 80 systolic. Patient to felt a little bit dizzy denied any syncopal episode denied any nausea vomiting abdominal pain. Patient was comparing of dark stools 3 yesterday with some blood in the stools. Patient was started on Eliquis is also on Plavix at home. Patient on Eliquis for atrial fibrillation. This is being held presently patient hemoglobin is fairly stable and at 11 now we'll repeat hemoglobin again tomorrow close clinical monitoring patient will be started on Protonix for this. Patient is presently on ciprofloxacin which she is supposed to complete therapy of 10 days total from his last discharge for his pseudomonal pneumonia. Because of significant interaction between Cipro and amiodarone patient was not discharged on amiodarone didn't last hospitalization. 11/08/2018 Patient blood pressure is actually elevated today and patient only received 12.5 of metoprolol in spite of which his heart rate is okay will continue with 12.5 metoprolol along with rapid small continue to monitor 1 more day. We will consult gastroenterology to figure out appropriate time to start him back on Eliquis patient is also on Plavix which probably can be discontinued patient is on Plavix for possibility of for TIA in the past although patient is on Eliquis now will not require Plavix hopefully just with single an agent patient will not have any more GI bleed. Same thing was discussed with the family and if he has GI bleed just with Eliquis then this need to be discontinued as well.rest and benefits of continuation of Eliquis was provided to the patient. Constitutional: Denied any fatigue denied any fever. Cardio vascular: denied any chest pain, palpitations Gastrointestinal denied any nausea vomiting Pulmonary: Denied any shortness of breath cough Neurologic denied any new focal deficits All inpatient medications were reviewed and appropriate changes in these medications as dictated in the interval history and assessment and plan. Objective - Vital Signs Vital signs: Vital Signs Temp 97.6 F 11/08/18 11:30 Pulse 63 11/08/18 15:09 Resp 16 11/08/18 11:30 BP 108/62 11/08/18 15:09 Pulse Ox 96 11/08/18 15:09 Intake & Output 11/07/18 11/08/18 11/08/18 18:59 06:59 18:59 Intake Total 240 480 720 Output Total 400 Balance 240 80 720 Weight 73.3 kg Intake: Oral 240 240 Tube Feeding 480 480 Output: Urine 400 Other: Voiding Method Toilet Toilet Urinal Urinal # Voids 1 1 1 # Bowel Movements 1 1 - Exam HYSICAL EXAMINATION: GENERAL: The patient is alert and oriented x3, not in any acute distress. Well developed, well nourished. She does have speech about his which are chronic. HEENT: Pupils are round and equally reacting to light. EOMI. No scleral icterus. No conjunctival pallor. Normocephalic, atraumatic. No pharyngeal erythema. No thyromegaly. CARDIOVASCULAR: S1 and S2 present. No murmurs, rubs, or gallops. PULMONARY: Chest is clear to auscultation, no wheezing or crackles. ABDOMEN: Soft, nontender, nondistended, normoactive bowel sounds. No palpable organomegaly. has a PEG tube in place PEG tube site doesn't appear to be infected at this time. MUSCULOSKELETAL: No joint swelling or deformity. EXTREMITIES: No cyanosis, clubbing, or pedal edema. NEUROLOGICAL: Gross neurological examination did not reveal any focal deficits. SKIN: No rashes. - Labs CBC & Chem 7: 11/07/18 06:12 11/06/18 15:51 Labs: Abnormal Lab Results - Last 24 Hours (Table) 11/07/18 11/07/18 11/08/18 Range/Units 17:15 20:26 11:12 POC Glucose (mg/dL) 129 H 106 H 121 H (75-99) mg/dL Assessment and Plan Plan: -Hypotension: Secondary to multiple medication changes that were made during last hospitalization. blood pressure improved now continued same dose of verapamil and patient is an 12.5 3 times a day of metoprolol -Possible upper GI bleed: no more GI bleed at this time patient does have a dark stools or blood in the stools. Continue to monitor tonight, probably can be resumed on Eliquis tomorrow. -Dysphagia chronic patient has PEG tube feedings presently which will be continued -Persistent atrial fibrillation presently rate ontrolled -CVA TIA in the past -Recent pseudomonal pneumonia for which patient will be continued on ciprofloxacin. -Gastroesophageal reflux disease -Vocal cord paralysis -Multiple myeloma Has an anxiety disorder
[2018-11-08 16:58] LABS: Glucose,Whole Blood 144 mg/dL (75-99)
[2018-11-08 20:39] LABS: Glucose,Whole Blood 122 mg/dL (75-99)
[2018-11-08] MEDS: METOPROLOL TARTRATE 12.5 MG TAB PO SCH (22:34)
[2018-11-09 06:55] LABS: Glucose,Whole Blood 84 mg/dL (75-99)
[2018-11-09 07:10] VITALS: RESP 18
[2018-11-09 07:43] LABS: HCT 34.5 % (39.0-53.0); HGB 10.8 gm/dL (13.0-17.5); MCH 32.2 pg (25.0-35.0); MCHC 31.4 g/dL (31.0-37.0); MCV 102.4 fL (80.0-100.0); Macrocytosis Slight; Mean Platelet Volume 8.8; Platelet Count 159 k/uL (150-450); RBC 3.37 m/uL (4.30-5.90); RDW 14.3 % (11.5-15.5); WBC 7.9 k/uL (3.8-10.6)
[2018-11-09 08:00] LABS: Potassium 5.3 mmol/L (3.5-5.1)
[2018-11-09] MEDS: SYMBICORT 160-4.5 MCG INHALER INHALATION SCH (08:38)
[2018-11-09] MEDS: IPRATROPIUM-ALBUTEROL 3 ML NEB INHALATION PRN ×2 (08:38→11:32)
[2018-11-09] MEDS: SODIUM CHLORIDE 0.9% 1,000 ML IV SCH (08:57)
[2018-11-09] MEDS: CIPROFLOXACIN HCL 250 MG TAB PO SCH (09:29)
[2018-11-09] MEDS: PANTOPRAZOLE 40 MG/10 ML VIAL IVP SCH (09:29)
[2018-11-09] MEDS: VERAPAMIL SR 240 MG TABLET.ER PO SCH (09:30)
[2018-11-09] MEDS: METOPROLOL TARTRATE 12.5 MG TAB PO SCH (09:30)
[2018-11-09 11:05] LABS: Glucose,Whole Blood 138 mg/dL (75-99)
[2018-11-09 11:44] VITALS: BP 111/71; TEMP 97.3
[2018-11-09 11:45] VITALS: PULSE 72
[2018-11-09] MEDS ORDERED: SODIUM POLYSTYRENE SULFONATE 15 GM/60 ML BOTTLE PO STA (12:46)
--- NOTE | 2018-11-09 14:32 | P.CONS ---
History of Present Illness - Reason for Consult Consult date: 11/09/18 GI bleed Requesting physician: Aline Edge - Chief Complaint Low blood pressure - History of Present Illness 73-year-old gentleman recently hospitalized for aspiration pneumonia admitted with low blood pressures. Patient states he is very sensitive to blood pressure medications. He has a history of underlying neuromuscular disorder, GERD, Phillips's esophagus, multiple myeloma, vocal cord paralysis, brain thrombus possible TIA maintain on Eliquis/Plavix. Patient states he passed a bowel movement the other day that was painless blood tinged. Last colonoscopy between 7-10 years. No recent EGD. Denies abdominal pain presently. Tolerating his tube feeds. Admission hemoglobin 11.1 presently 10.8. INR 1.0. FOBT positive. BUN 42-46. Creatinine 0.9. No recent EGD. Review of Systems Constitutional: Denies fever, chills, sweats, weight gain, or loss. HEENT: Focal cord paralysis. Negative for migraines, blurred vision or loss, earaches, drainage, tinnitus, oral mucosal lesions, dysphagia, or odynophagia. Cardiac: Negative for chest pain, arrhythmias, or palpitation. Respiratory: Negative for shortness of breath, hemoptysis, cough, or sputum production. Gastrointestinal: See HPI for pertinent findings. Genitourinary: Negative for hematuria, urgency, frequency, polyuria, dysuria, or penile discharge. Musculoskeletal: Neuromuscular disease. Neurologic: Negative for stroke or TIA. Endocrine: Negative for thyroid problems. Skin: Negative for rash or itching. Psychiatric: Negative history for depression and anxiety Past Medical History Past Medical History: Blood Disorder, COPD, CVA/TIA, GERD/Reflux, Rheumatoid Arthritis (RA) Additional Past Medical History / Comment(s): DYSPHAGIA, ASPIRATION PRECAUTIONS, 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 Gaping esophagus, barretts esophagus. 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 Nasal reduction, PEG tube placement , local cord surgery, Additional Past Anesthesia/Blood Transfusion Reaction / Comm: PARALYZED VOCAL CHORDS Past Psychological History: Anxiety Smoking Status: Former smoker Past Alcohol Use History: Occasional Additional Past Alcohol Use History / Comment(s): Patient started smoking 1961 and quit in 1971-smoked 1 ppd. He lives at home with his . 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 There are no animals in the home. He enjoys deer hunting. He has traveled throughout the [place] with his and cruises to [place] in the [facility]. home , . He uses a cane for ambulation. Past Drug Use History: None Reported - Past Family History Sister(s) Additional Family Medical History / Comment(s): passed colon CA Brother(s) Additional Family Medical History / Comment(s): sarcidosis Mother Additional Family Medical History / Comment(s): lung CA Son(s) Family Medical History: Hypertension Additional Family Medical History / Comment(s): lymphoma, sarcoidosis Medications and Allergies Home Medications Medication Instructions Recorded Confirmed Type Omeprazole 20 mg PEG/G-TUBE BID 07/31/14 11/06/18 History Loratadine-Pseudoeph 10-240 mg 1 tab PEG/G-TUBE DAILY 05/01/17 11/06/18 History [Claritin-D 24 Hour] Aspirin EC [Ecotrin Low Dose] 81 mg PEG/G-TUBE DAILY 01/28/18 11/06/18 History guaiFENesin [Mucinex] 600 mg PEG/G-TUBE BID 04/23/18 11/06/18 History Fluticasone/Vilanterol [Breo 1 puff INHALATION RT-DAILY 10/24/18 11/06/18 History Ellipta 200-25 Mcg INH] Ciprofloxacin HCl [Cipro] 750 mg PO BID #20 tablet 11/05/18 11/06/18 Rx Albuterol Inhaler [Ventolin Hfa 1 - 2 puff INHALATION RT-Q6H PRN 11/06/18 11/06/18 History Inhaler] Apixaban [Eliquis] 5 mg PEG/G-TUBE BID 11/06/18 11/06/18 History Ipratropium-Albuterol Nebulize 3 ml INHALATION RT-QID PRN 11/06/18 11/06/18 History [Duoneb 0.5 mg-3 mg/3 ml Soln] Metoprolol Tartrate [Lopressor] 25 mg PEG/G-TUBE TID 11/06/18 11/06/18 History Verapamil HCl [Verapamil ER] 240 mg PEG/G-TUBE DAILY 11/06/18 11/06/18 History Zolpidem [Ambien] 10 mg PEG/G-TUBE HS PRN 11/06/18 11/06/18 History predniSONE See Taper PEG/G-TUBE DIRECTED 11/06/18 11/06/18 History Allergies Allergy/AdvReac Type Severity Reaction Status Date / Time Penicillins Allergy Itching Verified 11/06/18 16:07 piperacillin [From Zosyn] Allergy Itching Verified 11/06/18 16:07 Sulfa (Sulfonamide Allergy Rash/Hives Verified 11/06/18 16:07 Antibiotics) tazobactam [From Zosyn] Allergy Itching Verified 11/06/18 16:07 Physical Exam Vitals: Vital Signs Temp Pulse Pulse Pulse Resp BP BP 11/09/18 11:44 72 11/09/18 11:32 72 11/09/18 11:15 97.3 F L 64 18 111/71 11/09/18 08:50 64 11/09/18 08:38 68 11/09/18 07:09 97.4 F L 69 18 139/77 11/08/18 23:12 16 11/08/18 21:00 97.6 F 68 17 92/49 11/08/18 19:45 68 11/08/18 19:34 66 11/08/18 16:21 68 11/08/18 16:08 72 11/08/18 16:00 63 68 16 11/08/18 15:09 63 108/62 Pulse Ox 11/09/18 11:44 11/09/18 11:32 11/09/18 11:15 100 11/09/18 08:50 11/09/18 08:38 11/09/18 07:09 96 11/08/18 23:12 11/08/18 21:00 97 11/08/18 19:45 11/08/18 19:34 11/08/18 16:21 11/08/18 16:08 11/08/18 16:00 11/08/18 15:09 96 Intake and Output 11/08/18 11/09/18 11/09/18 22:59 06:59 14:59 Other: Voiding Method Toilet Toilet Toilet Urinal Urinal Urinal # Voids 1 # Bowel Movements 1 Weight 74.5 kg General appearance: The patient is alert, oriented, in no acute distress. HET: Head is normocephalic and atraumatic. Pupils are equal and reactive. Oropharynx is clear without lesions. Neck: Supple without lymphadenopathy. Trachea midline. Heart: S1 S2. Regular rate and rhythm. Lungs: No crackles or wheezes are heard. Abdomen: Soft, nontender, nondistended with bowel sounds. PEG tube without drainage. No peritoneal signs. No palpable organomegaly or masses. Extremities: Normal skin color and turgor. No cyanosis, rash, ulceration, clubbing, or edema. Radial and pedal pulses are 2/4 bilaterally. Neurological: No focal deficits. Strength and sensation are grossly intact. Results CBC & Chem 7: 11/09/18 07:02 11/09/18 07:02 Labs: Abnormal Lab Results - Last 24 Hours (Table) 11/08/18 11/08/18 11/09/18 Range/Units 16:57 20:18 07:02 RBC 3.37 L (4.30-5.90) m/uL Hgb 10.8 L (13.0-17.5) gm/dL Hct 34.5 L (39.0-53.0) % MCV 102.4 H (80.0-100.0) fL Sodium (137-145) mmol/L Potassium (3.5-5.1) mmol/L Chloride (98-107) mmol/L Carbon Dioxide (22-30) mmol/L BUN (9-20) mg/dL Glucose (74-99) mg/dL POC Glucose (mg/dL) 144 H 122 H (75-99) mg/dL 11/09/18 11/09/18 Range/Units 07:02 11:04 RBC (4.30-5.90) m/uL Hgb (13.0-17.5) gm/dL Hct (39.0-53.0) % MCV (80.0-100.0) fL Sodium 135 L (137-145) mmol/L Potassium 5.3 H (3.5-5.1) mmol/L Chloride 88 L (98-107) mmol/L Carbon Dioxide 47 H* (22-30) mmol/L BUN 46 H (9-20) mg/dL Glucose 70 L (74-99) mg/dL POC Glucose (mg/dL) 138 H (75-99) mg/dL Assessment and Plan (1) GI bleed Narrative/Plan: 73-year-old gentleman with a history of underlying neuromuscular disease chronic dysphagia with PEG tube history of atrial fibrillation brain thrombus possible TIA maintained on anticoagulation and Plavix presents with episodes of hypotension which he treats to multiple blood pressure medication changes recently as well as painless blood tinged bowel movement which she describes more red than black in nature. Underlying upper GI pathology such as peptic ulcer disease cannot be excluded. Possible small bowel source possible acute colonic ischemic pathology from hypotension possible inflammatory possible colonic diverticular in nature. Current Visit: Yes Status: Acute Code(s): K92.2 - GASTROINTESTINAL HE MORRHAGE, UNSPECIFIED SNOMED Code(s): 08412628 (2) Hypotension Current Visit: Yes Status: Acute Code(s): I95.9 - HYPOTENSION, UNSPECIFIED SNOMED Code(s): 82148414 (3) Neuromuscular disease Current Visit: Yes Status: Acute Code(s): G70.9 - MYONEURAL DISORDER, UNSPECIFIED SNOMED Code(s): 279074555 (4) Dysphagia Current Visit: Yes Status: Acute Code(s): R13.10 - DYSPHAGIA, UNSPECIFIED SNOMED Code(s): 77278845 (5) Multiple myeloma Current Visit: No Status: Acute Code(s): C90.00 - MULTIPLE MYELOMA NOT STEWART VING ACHIEVED REMISSION SNOMED Code(s): 030965031 Plan: 1. Continue present medical therapy. Omeprazole 20 mg twice daily. Patient is not interested in pursuing inpatient endoscopic exams at this time. He requesting conservative measures. Advised to follow with PCP in 1 week and with GI service as needed. CBC monitoring in the outpatient setting. Patient is agreeable with this plan of care. Discharge per medicine. Thank you for this kind referral and the opportunity to participate in the care of your patient. This consultation was discussed with Dr. Garg. The impression and plan of care have been directed as dictated.
--- NOTE | 2018-11-09 14:40 | P.DS ---
Providers Date of admission: 11/06/18 17:24 Attending physician: Madison Bernstein Consults: 11/08/18 14:34 Consult Physician Routine Consulting Provider: Fidel Garg Consult Reason/Comments: GI bleed Do you want consulting provider notified?: Yes Primary care physician: Harish Alvarado Hospital Course: 71-year-old gentleman was recently discharged from the hospital after he was treated for aspiration pneumonia and atrial fibrillation. Multiple medication agents were made during that hospital patient because of the drug interactions and his blood pressure at that time was borderline during that hospitalization. Patient was finally discharged on verapamil and metoprolol for atrial fibrillation rate controlled on Eliquis. Patient is doing well except for his blood pressures are quite low with systolics going up to low 80s because of which her family is concerned brought him to ER in ER his blood pressure is 1 10 x 48 although as per EMS documentation his blood pressure was running in 80 systolic. Patient to felt a little bit dizzy denied any syncopal episode denied any nausea vomiting abdominal pain. Patient was comparing of dark stools 3 yesterday with some blood in the stools. Patient was started on Eliquis is also on Plavix at home. Patient on Eliquis for atrial fibrillation. This is being held presently patient hemoglobin is fairly stable and at 11 now we'll repeat hemoglobin again tomorrow close clinical monitoring patient will be started on Protonix for this. Patient is presently on ciprofloxacin which she is supposed to complete therapy of 10 days total from his last discharge for his pseudomonal pneumonia. Because of significant interaction between Cipro and amiodarone patient was not discharged on amiodarone didn't last hospitalization. 11/08/2018 Patient blood pressure is actually elevated today and patient only received 12.5 of metoprolol in spite of which his heart rate is okay will continue with 12.5 metoprolol along with rapid small continue to monitor 1 more day. We will consult gastroenterology to figure out appropriate time to start him back on Eliquis patient is also on Plavix which probably can be discontinued patient is on Plavix for possibility of for TIA in the past although patient is on Eliquis now will not require Plavix hopefully just with single an agent patient will not have any more GI bleed. Same thing was discussed with the family and if he has GI bleed just with Eliquis then this need to be discontinued as well.rest and benefits of continuation of Eliquis was provided to the patient. 11/09/2018 Patient is clinically looking well except for some crackles in left lower lung perrin because of which I'm obtaining chest x-ray today. No more GI bleed. Patient will be resumed on Eliquis asked to monitor for any more dark stools or blood in the stools and if that happens he need to discontinue Eliquis as well patient's antiplatelet therapy was discontinued. Patient is late taking a lesser dose of metoprolol with which his heart rate is well controlled patient will be discharged on the dose. Patient was evaluated by gastroenterology. HYSICAL EXAMINATION: GENERAL: The patient is alert and oriented x3, not in any acute distress. Well developed, well nourished. She does have speech about his which are chronic. HEENT: Pupils are round and equally reacting to light. EOMI. No scleral icterus. No conjunctival pallor. Normocephalic, atraumatic. No pharyngeal erythema. No thyromegaly. CARDIOVASCULAR: S1 and S2 present. No murmurs, rubs, or gallops. PULMONARY: Crackles in left lower lung bases ABDOMEN: Soft, nontender, nondistended, normoactive bowel sounds. No palpable organomegaly. has a PEG tube in place PEG tube site doesn't appear to be infected at this time. MUSCULOSKELETAL: No joint swelling or deformity. EXTREMITIES: No cyanosis, clubbing, or pedal edema. NEUROLOGICAL: Gross neurological examination did not reveal any focal deficits. SKIN: No rashes. Assessment and Plan Plan: -Hypotension: Secondary to multiple medication changes that were made during last hospitalization. Blood pressure is good now. -Possible upper GI bleed: no more GI bleed at this time patient does have a dark stools or blood in the stools. Patient will be resumed back on Eliquis antiplatelet therapy will be discontinued -Dysphagia chronic patient has PEG tube feedings presently which will be continued -Persistent atrial fibrillation presently rate controlled -CVA TIA in the past -Recent pseudomonal pneumonia for which patient will be continued on ciprofloxa tawnya. Patient will need 5 more days of therapy -Gastroesophageal reflux disease -Vocal cord paralysis -Multiple myeloma anxiety disorder Patient Condition at Discharge: Serious Plan - Discharge Summary New Discharge Prescriptions: New Metoprolol Tartrate [Lopressor] 12.5 mg PO BID tab Continue Zolpidem [Ambien] 10 mg PEG/G-TUBE HS PRN PRN Reason: Insomnia Albuterol Inhaler [Ventolin Hfa Inhaler] 1 - 2 puff INHALATION RT-Q6H PRN PRN Reason: Shortness Of Breath predniSONE See Taper PEG/G-TUBE DIRECTED Verapamil HCl [Verapamil ER] 240 mg PEG/G-TUBE DAILY Apixaban [Eliquis] 5 mg PEG/G-TUBE BID Ipratropium-Albuterol Nebulize [Duoneb 0.5 mg-3 mg/3 ml Soln] 3 ml INHALATION RT-QID PRN PRN Reason: Shortness Of Breath Discontinued Aspirin EC [Ecotrin Low Dose] 81 mg PEG/G-TUBE DAILY Metoprolol Tartrate [Lopressor] 25 mg PEG/G-TUBE TID No Action Omeprazole 20 mg PEG/G-TUBE BID Loratadine-Pseudoeph 10-240 mg [Claritin-D 24 Hour] 1 tab PEG/G-TUBE DAILY guaiFENesin [Mucinex] 600 mg PEG/G-TUBE BID Fluticasone/Vilanterol [Breo Ellipta 200-25 Mcg INH] 1 puff INHALATION RT- DAILY Ciprofloxacin HCl [Cipro] 750 mg PO BID #20 tablet Discharge Medication List Omeprazole 20 mg PEG/G-TUBE BID 07/31/14 [History] Loratadine-Pseudoeph 10-240 mg [Claritin-D 24 Hour] 1 tab PEG/G-TUBE DAILY 05/01/17 [History] guaiFENesin [Mucinex] 600 mg PEG/G-TUBE BID 04/23/18 [History] Fluticasone/Vilanterol [Breo Ellipta 200-25 Mcg INH] 1 puff INHALATION RT-DAILY 10/24/18 [History] Ciprofloxacin HCl [Cipro] 750 mg PO BID #20 tablet 11/05/18 [Rx] Albuterol Inhaler [Ventolin Hfa Inhaler] 1 - 2 puff INHALATION RT-Q6H PRN 11/06/18 [History] Apixaban [Eliquis] 5 mg PEG/G-TUBE BID 11/06/18 [History] Ipratropium-Albuterol Nebulize [Duoneb 0.5 mg-3 mg/3 ml Soln] 3 ml INHALATION RT-QID PRN 11/06/18 [History] Verapamil HCl [Verapamil ER] 240 mg PEG/G-TUBE DAILY 11/06/18 [History] Zolpidem [Ambien] 10 mg PEG/G-TUBE HS PRN 11/06/18 [History] predniSONE See Taper PEG/G-TUBE DIRECTED 11/06/18 [History] Metoprolol Tartrate [Lopressor] 12.5 mg PO BID tab 11/09/18 [Rx] Follow up Appointment(s)/Referral(s): [facility], [NON-STAFF] - 1 Week Harish Alvarado DO [Primary Care Provider] - 3 Days
--- NOTE | 2018-11-09 15:00 | XR ---
EXAMINATION TYPE: XR chest 2V DATE OF EXAM: 11/09/2018 COMPARISON: 11/06/2018 TECHNIQUE: PA and lateral views submitted. HISTORY: Shortness of breath FINDINGS: Bilateral consolidation and pleural effusion greater on the right. Heart size stable. No pneumothorax . Atherosclerotic change aorta. Arthropathy of the shoulders. Interstitial pattern noted. IMPRESSION: 1. Bilateral consolidation and small effusion greater on the right. Correlate for pneumonia. Underlyi ng venous congestion not excluded.
== END 2018-11-09 16:40 | disposition home health service (06) | DRG 312 ==
LOC: EC 15:22 → 3SCARD 17:24 → 3NMEDONC 11-07 15:56
PROVIDERS: ADMIT Hospitalist; ATTEND Hospitalist
DX: I95.2 Hypotension due to drugs (principal); J15.1 Pneumonia due to Pseudomonas; C90.00 Multiple myeloma not having achieved remission; I48.1 Persistent atrial fibrillation; K92.1 Melena; F41.9 Anxiety disorder, unspecified; G70.9 Myoneural disorder, unspecified; J38.00 Paralysis of vocal cords and larynx, unspecified; J44.9 Chronic obstructive pulmonary disease, unspecified; K21.9 Gastro-esophageal reflux disease without esophagitis; K22.70 Barrett's esophagus without dysplasia; M06.9 Rheumatoid arthritis, unspecified; Z79.01 Long term (current) use of anticoagulants; Z79.02 Long term (current) use of antithrombotics/antiplatelets; Z80.0 Family history of malignant neoplasm of digestive organs; Z80.1 Family history of malignant neoplasm of trachea, bronchus and lung; Z80.7 Family history of other malignant neoplasms of lymphoid, hematopoietic and related tissues; Z82.49 Family history of ischemic heart disease and other diseases of the circulatory system; Z86.73 Personal history of transient ischemic attack (TIA), and cerebral infarction without residual deficits; Z87.891 Personal history of nicotine dependence; Z93.1 Gastrostomy status; Z88.1 Allergy status to other antibiotic agents; Z88.0 Allergy status to penicillin; Z88.2 Allergy status to sulfonamides; R13.10 Dysphagia, unspecified
CPT/HCPCS: 36415; 71046; 80048; 80053; 81001; 82272; 83605; 83880; 84484; 85025; 85027; 85610; 85730; 93005; 94640; 96360; 99285

== ENCOUNTER 2018-11-17 13:52 | Emergency (ER) | payer MEDICARE ==
[2018-11-17 14:53] LABS: Basophils % (A) 0 %; Eosinophils # (A) 0.1 k/uL (0-0.7); Eosinophils % (A) 3 %; HCT 35.2 % (39.0-53.0); HGB 11.6 gm/dL (13.0-17.5); Lymphocytes # (A) 0.5 k/uL (1.0-4.8); Lymphocytes % (A) 13 %; MCH 33.1 pg (25.0-35.0); MCV 100.5 fL (80.0-100.0); Macrocytosis Slight; Mean Platelet Volume 8.8; Monocytes # (A) 0.2 k/uL (0-1.0); Monocytes % (A) 4 %; Neutrophils # (A) 3.1 k/uL (1.3-7.7); Neutrophils % (A) 77 %; Platelet Count 157 k/uL (150-450); RDW 15.4 % (11.5-15.5)
[2018-11-17 15:03] LABS: ALT 51 U/L (21-72); AST 34 U/L (17-59); Albumin 3.4 g/dL (3.5-5.0); Alkaline Phosphatase 85 U/L (38-126); Anion Gap 3 mmol/L; Blood Urea Nitrogen 32 mg/dL (9-20); Calcium 8.8 mg/dL (8.4-10.2); Carbon Dioxide 38 mmol/L (22-30); Chloride 94 mmol/L (98-107); Glucose 73 mg/dL (74-99); Potassium 4.7 mmol/L (3.5-5.1); Sodium 135 mmol/L (137-145); Total Bilirubin 0.8 mg/dL (0.2-1.3); Total Protein 6.1 g/dL (6.3-8.2)
[2018-11-17 15:04] LABS: Creatine Kinase 33 U/L (55-170)
--- NOTE | 2018-11-17 15:04 | ED ---
General Adult HPI - General Chief complaint: Recheck/Abnormal Lab/Rx Stated complaint: hypotension Time Seen by Provider: 11/17/18 14:20 Source: patient, family, RN notes reviewed Mode of arrival: wheelchair Limitations: no limitations - History of Present Illness Initial comments: This is a 73-year-old male who presents with complaints of low blood pressure and some fatigue today. He recently was admitted for aspiration pneumonia his on that he had a blood pressure 91/61.78/56 12 x 91/67. He does have a history of A. fib also is currently not any blood thinners initial blood pressure 104/74. He denies any headache dizziness blurry vision nausea vomiting he does have decrease oral intake due to PEG tube use. - Related Data Home Medications Medication Instructions Recorded Confirmed Omeprazole 20 mg PEG/G-TUBE BID 07/31/14 11/17/18 Loratadine-Pseudoeph 10-240 mg 1 tab PEG/G-TUBE DAILY 05/01/17 11/17/18 [Claritin-D 24 Hour] guaiFENesin [Mucinex] 600 mg PEG/G-TUBE BID 04/23/18 11/17/18 Fluticasone/Vilanterol [Breo 1 puff INHALATION RT-DAILY 10/24/18 11/17/18 Ellipta 200-25 Mcg INH] Albuterol Inhaler [Ventolin Hfa 1 - 2 puff INHALATION RT-Q6H PRN 11/06/18 11/17/18 Inhaler] Apixaban [Eliquis] 5 mg PEG/G-TUBE BID 11/06/18 11/17/18 Ipratropium-Albuterol Nebulize 3 ml INHALATION RT-QID PRN 11/06/18 11/17/18 [Duoneb 0.5 mg-3 mg/3 ml Soln] Verapamil HCl [Verapamil ER] 240 mg PEG/G-TUBE DAILY 11/06/18 11/17/18 Zolpidem [Ambien] 10 mg PEG/G-TUBE HS PRN 11/06/18 11/17/18 Ciprofloxacin HCl [Cipro] 750 mg PEG/G-TUBE BID 11/17/18 11/17/18 Metoprolol Tartrate [Lopressor] 12.5 mg PEG/G-TUBE BID 11/17/18 11/17/18 Allergies Allergy/AdvReac Type Severity Reaction Status Date / Time Penicillins Allergy Itching Verified 11/17/18 14:25 piperacillin [From Zosyn] Allergy Itching Verified 11/17/18 14:25 Sulfa (Sulfonamide Allergy Rash/Hives Verified 11/17/18 14:25 Antibiotics) tazobactam [From Zosyn] Allergy Itching Verified 11/17/18 14:25 Review of Systems ROS Statement: Those systems with pertinent positive or pertinent negative responses have been documented in the HPI. ROS Other: All systems not noted in ROS Statement are negative. 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 Gaping esophagus, barretts esophagus. 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 Nasal reduction, PEG tube placement , local cord surgery, Additional Past Anesthesia/Blood Transfusion Reaction / Comment(s): PARALYZED VOCAL CHORDS Past Psychological History: Anxiety Smoking Status: Former smoker Past Alcohol Use History: Occasional Past Drug Use History: None Reported - Past Family History Sister(s) Additional Family Medical History / Comment(s): passed colon CA Brother(s) Additional Family Medical History / Comment(s): sarcidosis Mother Additional Family Medical History / Comment(s): lung CA Son(s) Family Medical History: Hypertension Additional Family Medical History / Comment(s): lymphoma, sarcoidosis General Exam - General Exam Comments Initial Comments: This a well-developed sec appearing male who is awake alert oriented 3 Limitations: no limitations General appearance: alert, in no apparent distress Head exam: Present: atraumatic, normocephalic, normal inspection Eye exam: Present: normal appearance, PERRL, EOMI. Absent: scleral icterus, conjunctival injection, periorbital swelling ENT exam: Present: mucous membranes dry Neck exam: Present: normal inspection. Absent: tenderness, meningismus, lymphadenopathy Respiratory exam: Present: normal lung sounds bilaterally. Absent: respiratory distress, wheezes, rales, rhonchi, stridor Cardiovascular Exam: Present: normal rhythm, tachycardia, normal heart sounds. Absent: systolic murmur, diastolic murmur, rubs, gallop, clicks GI/Abdominal exam: Present: soft, normal bowel sounds, other (PEG tube in place no evidence of any drainage or discharge). Absent: distended, tenderness, guarding, rebound, rigid Extremities exam: Present: normal inspection, full ROM, normal capillary refill. Absent: tenderness, pedal edema, joint swelling, calf tenderness Back exam: Present: normal inspection Neurological exam: Present: alert, oriented X3, CN II-XII intact Psychiatric exam: Present: normal affect, normal mood Skin exam: Present: warm, dry, intact, normal color. Absent: rash Course Vital Signs 11/17/18 11/17/18 14:03 17:27 Temperature 98.3 F Pulse Rate 53 L 67 Respiratory 20 Rate Blood Pressure 88/60 O2 Sat by Pulse 98 Oximetry - Reevaluation(s) Reevaluation #1: 11/17/18 17:35 Age and did feel somewhat short of breath he does get frequent updraft treatments one was ordered. EKG Findings - EKG Results: EKG: interpreted by ERMD, sinus rhythm (Sinus bradycardia first-degree AV block rate was 53. Interval 234 QRS 84 QT since QTC 46/380. Criteria for LVH.) Medical Decision Making - Medical Decision Making Patient is feeling improved after IV hydration. He is not require admission at this time I did discuss findings with him and his family he will be discharged and continue with current treatment he did get encouragement for increasing fluid by PEG tube. Continue with his follow-ups as planned. - Lab Data Result diagrams: 11/17/18 14:25 11/17/18 14:25 Lab Results 11/17/18 11/17/18 11/17/18 Range/Units 14:25 14:25 14:25 WBC 4.0 (3.8-10.6) k/uL RBC 3.50 L (4.30-5.90) m/uL Hgb 11.6 L (13.0-17.5) gm/dL Hct 35.2 L (39.0-53.0) % MCV 100.5 H (80.0-100.0) fL MCH 33.1 (25.0-35.0) pg MCHC 33.0 (31.0-37.0) g/dL RDW 15.4 (11.5-15.5) % Plt Count 157 (150-450) k/uL Neutrophils % 77 % Lymphocytes % 13 % Monocytes % 4 % Eosinophils % 3 % Basophils % 0 % Neutrophils # 3.1 (1.3-7.7) k/uL Lymphocytes # 0.5 L (1.0-4.8) k/uL Monocytes # 0.2 (0-1.0) k/uL Eosinophils # 0.1 (0-0.7) k/uL Basophils # 0.0 (0-0.2) k/uL Macrocytosis Slight Sodium 135 L (137-145) mmol/L Potassium 4.7 (3.5-5.1) mmol/L Chloride 94 L (98-107) mmol/L Carbon Dioxide 38 H (22-30) mmol/L Anion Gap 3 mmol/L BUN 32 H (9-20) mg/dL Creatinine 0.85 (0.66-1.25) mg/dL Est GFR (CKD-EPI)AfAm >90 (>60 ml/min/1.73 sqM) Est GFR (CKD-EPI)NonAf 85 (>60 ml/min/1.73 sqM) Glucose 73 L (74-99) mg/dL Calcium 8.8 (8.4-10.2) mg/dL Magnesium 2.0 (1.6-2.3) mg/dL Total Bilirubin 0.8 (0.2-1.3) mg/dL AST 34 (17-59) U/L ALT 51 (21-72) U/L Alkaline Phosphatase 85 (38-126) U/L Total Creatine Kinase 33 L (55-170) U/L CK-MB (CK-2) 1.7 (0.0-2.4) ng/mL CK-MB (CK-2) Rel Index 5.2 Troponin I <0.012 (0.000-0.034) ng/mL Total Protein 6.1 L (6.3-8.2) g/dL Albumin 3.4 L (3.5-5.0) g/dL - Radiology Data Radiology results: report reviewed (I did review the imaging and report there does appear to be some improvement though still residual findings. Unclear as to the complete significant.), image reviewed Disposition Clinical Impression: Dehydration, Hypotensive episode Disposition: HOME SELF-CARE Condition: Good Instructions (If sedation given, give patient instructions): Dehydration (ED), Hypotension (ED) Is patient prescribed a controlled substance at d/c from ED?: No Referrals: Harish Alvarado DO [Primary Care Provider] - 1-2 days
[2018-11-17 15:18] LABS: Creatine Kinase MB 1.7 ng/mL (0.0-2.4); Troponin I <0.012 ng/mL (0.000-0.034)
--- NOTE | 2018-11-17 15:41 | XR ---
EXAMINATION TYPE: XR chest 2V DATE OF EXAM: 11/17/2018 COMPARISON: 11/09/2018 HISTORY: Cough TECHNIQUE: Frontal and lateral views of the chest are obtained. FINDINGS: There is chronic right hemidiaphragm elevation. Multifocal atelectasis is again seen. Righ t infrahilar density has improved however the right hilum is ill-defined. Cardia mediastinal silhouet te is upper limits of normal. Diffuse osseous demineralization is seen. IMPRESSION: Although there is improved aeration of the lungs multifocal atelectasis remains with rig ht infrahilar ill-definition given the chronic right hemidiaphragm elevation. Nonemergent CT could ex clude right perihilar mass.
[2018-11-17] MEDS ORDERED: SODIUM CHLORIDE 0.9% 1,000 ML IV STA (16:04)
[2018-11-17] MEDS ORDERED: IPRATROPIUM-ALBUTEROL 3 ML NEB INHALATION STA (17:07)
[2018-11-17 17:55] VITALS: BP 116/78; PULSE 77; RESP 18; TEMP 97.6
== END 2018-11-17 17:55 | disposition home or self-care (01) ==
LOC: EC 13:52
DX: I95.9 Hypotension, unspecified (principal); E86.0 Dehydration; R00.0 Tachycardia, unspecified; I48.91 Unspecified atrial fibrillation; J44.9 Chronic obstructive pulmonary disease, unspecified; K21.9 Gastro-esophageal reflux disease without esophagitis; Z87.891 Personal history of nicotine dependence; Z88.0 Allergy status to penicillin; Z88.2 Allergy status to sulfonamides; Z79.01 Long term (current) use of anticoagulants; Z79.51 Long term (current) use of inhaled steroids; Z79.899 Other long term (current) drug therapy; Z86.73 Personal history of transient ischemic attack (TIA), and cerebral infarction without residual deficits; Z85.79 Personal history of other malignant neoplasms of lymphoid, hematopoietic and related tissues; Z93.1 Gastrostomy status; Z82.49 Family history of ischemic heart disease and other diseases of the circulatory system
CPT/HCPCS: 36415; 71046; 80053; 82550; 82553; 83735; 84484; 85025; 93005; 94640; 96360; 99285

== ENCOUNTER 2018-12-01 10:36 | Inpatient (IN) | payer MEDICARE ==
[2018-12-01] MEDS ORDERED: SODIUM CHLORIDE 0.9% 1,000 ML IV STA (11:05)
[2018-12-01] MEDS ORDERED: DILTIAZEM DRIP BOLUS FROM BAG 1 MG SOLN IV ONE (11:05)
--- NOTE | 2018-12-01 11:10 | ED ---
General Adult HPI - General Chief complaint: Dizziness Stated complaint: LOWER BP, DIZZINESS, SHAKING Time Seen by Provider: 12/01/18 10:48 Source: patient, family, RN/MD, RN notes reviewed Mode of arrival: wheelchair Limitations: no limitations - History of Present Illness Initial comments: Patient is a pleasant 73-year-old male presenting to the emergency department from Dr. Arrington's office. Call was received by Dr. Watters. While there patient felt lightheaded and had a near syncopal episode. Dr. Arrington did find patient to have a high heart rate and felt concern for A. fib with RVR. Patient states he does have a previous history of atrial fibrillation. Patient has not been taking his medication much secondary to having low blood pressure. Patient states symptoms have near resolved at this point and feels almost normal. Patient denies any palpitations. No chest pain or dyspnea. No confusion or weakness. No speech changes. - Related Data Home Medications Medication Instructions Recorded Confirmed Omeprazole 20 mg PEG/G-TUBE BID 07/31/14 12/01/18 Loratadine-Pseudoeph 10-240 mg 1 tab PEG/G-TUBE DAILY 05/01/17 12/01/18 [Claritin-D 24 Hour] guaiFENesin [Mucinex] 600 mg PEG/G-TUBE BID 04/23/18 12/01/18 Fluticasone/Vilanterol [Breo 1 puff INHALATION RT-DAILY 10/24/18 12/01/18 Ellipta 200-25 Mcg INH] Albuterol Inhaler [Ventolin Hfa 1 - 2 puff INHALATION RT-Q6H PRN 11/06/18 12/01/18 Inhaler] Ipratropium-Albuterol Nebulize 3 ml INHALATION RT-QID PRN 11/06/18 12/01/18 [Duoneb 0.5 mg-3 mg/3 ml Soln] Zolpidem [Ambien] 10 mg PEG/G-TUBE HS PRN 11/06/18 12/01/18 Allergies Allergy/AdvReac Type Severity Reaction Status Date / Time Penicillins Allergy Itching Verified 12/01/18 11:23 piperacillin [From Zosyn] Allergy Itching Verified 12/01/18 11:23 Sulfa (Sulfonamide Allergy Rash/Hives Verified 12/01/18 11:23 Antibiotics) tazobactam [From Zosyn] Allergy Itching Verified 12/01/18 11:23 Review of Systems ROS Statement: Those systems with pertinent positive or pertinent negative responses have been documented in the HPI. ROS Other: All systems not noted in ROS Statement are negative. Constitutional: Denies: fever Eyes: Denies: eye pain ENT: Denies: ear pain Respiratory: Denies: cough, dyspnea Cardiovascular: Denies: chest pain, palpitations Endocrine: Denies: fatigue Gastrointestinal: Denies: abdominal pain Genitourinary: Denies: dysuria Musculoskeletal: Denies: back pain Skin: Denies: rash Neurological: Reports: other (Lightheaded). 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 Gaping esophagus, barretts esophagus. 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 Nasal reduction, PEG tube placement , local cord surgery, Additional Past Anesthesia/Blood Transfusion Reaction / Comment(s): PARALYZED VOCAL CHORDS Past Psychological History: Anxiety Smoking Status: Former smoker Past Alcohol Use History: Occasional Past Drug Use History: None Reported - Past Family History Sister(s) Additional Family Medical History / Comment(s): passed colon CA Brother(s) Additional Family Medical History / Comment(s): sarcidosis Mother Additional Family Medical History / Comment(s): lung CA Son(s) Family Medical History: Hypertension Additional Family Medical History / Comment(s): lymphoma, sarcoidosis General Exam Limitations: no limitations General appearance: alert, in no apparent distress Head exam: Present: atraumatic, normocephalic Eye exam: Present: normal appearance, PERRL Neck exam: Present: normal inspection Respiratory exam: Present: normal lung sounds bilaterally Cardiovascular Exam: Present: tachycardia, irregular rhythm Expanded Peripheral pulses: 2+: Radial (R), Radial (L), Posterior Tibialis (R), Posterior Tibialis (L) GI/Abdominal exam: Present: soft. Absent: tenderness Extremities exam: Present: normal inspection Neurological exam: Present: alert, oriented X3, CN II-XII intact. Absent: motor sensory deficit Expanded Neurological exam: Present: protecting the airway Patient oriented to: Present: person, place, time Speech: Present: fluid speech Cranial nerves: EOM's Intact: Normal Motor strength exam: RUE: 5, LUE: 5, RLE: 5, LLE: 5 Eye Response: (4) open spontaneously Motor Response: (6) obeys commands Verbal Response: (5) oriented Psychiatric exam: Present: normal affect, normal mood Skin exam: Present: normal color Course Vital Signs 12/01/18 12/01/18 12/01/18 10:45 11:20 12:00 Temperature 98.2 F Pulse Rate 58 L 135 H 112 H Respiratory 20 18 18 Rate Blood Pressure 68/41 86/72 99/70 O2 Sat by Pulse 97 98 Oximetry EKG Findings - EKG Comments: EKG Findings:: Atrial flutter with RVR, rate 146. 21 AV conduction. QRS 76. QT to 46. QTc 383. Left axis. LVH criteria. Nonspecific ST-T. Medical Decision Making - Medical Decision Making Patient has been told he is not to receive anticoagulants. Patient reevaluated. Heart rate 105-110. Blood pressure twice in the upper 90s. Patient and family updated on results and plan. Case was discussed in detail with Dr. vyas, who will admit covering for Dr. Matthews. - Lab Data Result diagrams: 12/01/18 11:00 12/01/18 11:00 Lab Results 12/01/18 12/01/18 12/01/18 Range/Units 11:00 11:00 11:00 WBC 5.9 (3.8-10.6) k/uL RBC 3.83 L (4.30-5.90) m/uL Hgb 12.3 L (13.0-17.5) gm/dL Hct 38.2 L (39.0-53.0) % MCV 99.8 (80.0-100.0) fL MCH 32.2 (25.0-35.0) pg MCHC 32.3 (31.0-37.0) g/dL RDW 14.2 (11.5-15.5) % Plt Count 242 (150-450) k/uL Neutrophils % (Manual) 70 % Lymphocytes % (Manual) 23 % Monocytes % (Manual) 6 % Eosinophils % (Manual) 1 % Neutrophils # (Manual) 4.13 (1.3-7.7) k/uL Lymphocytes # (Manual) 1.36 (1.0-4.8) k/uL Monocytes # (Manual) 0.35 (0-1.0) k/uL Eosinophils # (Manual) 0.06 (0-0.7) k/uL Nucleated RBCs 0 (0-0) /100 WBC Manual Slide Review Performed RBC Morphology Normal PT 9.4 (9.0-12.0) sec INR 0.9 (<1.2) APTT 23.3 (22.0-30.0) sec Sodium 134 L (137-145) mmol/L Potassium 4.5 (3.5-5.1) mmol/L Chloride 86 L (98-107) mmol/L Anion Gap 8 mmol/L BUN 42 H (9-20) mg/dL Creatinine 0.98 (0.66-1.25) mg/dL Est GFR (CKD-EPI)AfAm 88 (>60 ml/min/1.73 sqM) Est GFR (CKD-EPI)NonAf 76 (>60 ml/min/1.73 sqM) Glucose 71 L (74-99) mg/dL Calcium 10.0 (8.4-10.2) mg/dL Magnesium 2.2 (1.6-2.3) mg/dL Total Bilirubin 0.6 (0.2-1.3) mg/dL AST 41 (17-59) U/L ALT 41 (21-72) U/L Alkaline Phosphatase 98 (38-126) U/L Creatine Kinase 52 L (55-170) U/L Troponin I (0.000-0.034) ng/mL Total Protein 7.6 (6.3-8.2) g/dL Albumin 4.3 (3.5-5.0) g/dL TSH 6.060 H (0.465-4.680) mIU/L 12/01/18 Range/Units 11:00 WBC (3.8-10.6) k/uL RBC (4.30-5.90) m/uL Hgb (13.0-17.5) gm/dL Hct (39.0-53.0) % MCV (80.0-100.0) fL MCH (25.0-35.0) pg MCHC (31.0-37.0) g/dL RDW (11.5-15.5) % Plt Count (150-450) k/uL Neutrophils % (Manual) % Lymphocytes % (Manual) % Monocytes % (Manual) % Eosinophils % (Manual) % Neutrophils # (Manual) (1.3-7.7) k/uL Lymphocytes # (Manual) (1.0-4.8) k/uL Monocytes # (Manual) (0-1.0) k/uL Eosinophils # (Manual) (0-0.7) k/uL Nucleated RBCs (0-0) /100 WBC Manual Slide Review RBC Morphology PT (9.0-12.0) sec INR (<1.2) APTT (22.0-30.0) sec Sodium (137-145) mmol/L Potassium (3.5-5.1) mmol/L Chloride (98-107) mmol/L Anion Gap mmol/L BUN (9-20) mg/dL Creatinine (0.66-1.25) mg/dL Est GFR (CKD-EPI)AfAm (>60 ml/min/1.73 sqM) Est GFR (CKD-EPI)NonAf (>60 ml/min/1.73 sqM) Glucose (74-99) mg/dL Calcium (8.4-10.2) mg/dL Magnesium (1.6-2.3) mg/dL Total Bilirubin (0.2-1.3) mg/dL AST (17-59) U/L ALT (21-72) U/L Alkaline Phosphatase (38-126) U/L Creatine Kinase (55-170) U/L Troponin I <0.012 (0.000-0.034) ng/mL Total Protein (6.3-8.2) g/dL Albumin (3.5-5.0) g/dL TSH (0.465-4.680) mIU/L - Radiology Data Radiology results: image reviewed (Chest x-ray reveals no acute process) Critical Care Time Critical Care Time: Yes Total Critical Care Time: 33 Disposition Clinical Impression: Atrial flutter with rapid ventricular response, Dehydration Disposition: ADMITTED IP TO THIS HOSP Is patient prescribed a controlled substance at d/c from ED?: No Referrals: Harish Alvarado DO [Primary Care Provider] - 1-2 days Decision Time: 12:52
[2018-12-01] MEDS ORDERED: DILTIAZEM 125 MG in SODIUM CHLORIDE 0.9% 100 ML IV SCH (11:15)
[2018-12-01 11:23] LABS: HCT 38.2 % (39.0-53.0); HGB 12.3 gm/dL (13.0-17.5); MCH 32.2 pg (25.0-35.0); MCHC 32.3 g/dL (31.0-37.0); MCV 99.8 fL (80.0-100.0); Mean Platelet Volume 8.3; Platelet Count 242 k/uL (150-450); RBC 3.83 m/uL (4.30-5.90); RDW 14.2 % (11.5-15.5); WBC 5.9 k/uL (3.8-10.6)
[2018-12-01 11:27] LABS: INR 0.9 (<1.2); Partial Thromboplastin Time 23.3 sec (22.0-30.0); Prothrombin Time 9.4 sec (9.0-12.0)
[2018-12-01 11:33] LABS: Albumin 4.3 g/dL (3.5-5.0); Magnesium 2.2 mg/dL (1.6-2.3); Potassium 4.5 mmol/L (3.5-5.1); Total Bilirubin 0.6 mg/dL (0.2-1.3); Total Protein 7.6 g/dL (6.3-8.2)
--- NOTE | 2018-12-01 11:46 | XR ---
EXAMINATION TYPE: XR chest 2V DATE OF EXAM: 12/01/2018 COMPARISON: 11/17/2018 HISTORY: 73-year-old male dysrhythmia TECHNIQUE: AP and lateral views FINDINGS: Heart remains upper limits of normal in size. Continued elevation of the right hemidiaphragm with res olution of the previous small right effusion. Strandy atelectasis mid and lower lungs. No consolidati on or pleural effusion seen. IMPRESSION: Continued elevation of the right hemidiaphragm. Resolution of the previous small right effusion. Some strandy lower lung atelectasis without acute process seen.
[2018-12-01 11:55] LABS: Eosinophils # (M) 0.06 k/uL (0-0.7); Lymphocytes # (M) 1.36 k/uL (1.0-4.8); Monocytes # (M) 0.35 k/uL (0-1.0); Neutrophils # (M) 4.13 k/uL (1.3-7.7); Neutrophils % (M) 70 %; Nucleated Red Blood Cells 0 /100 WBC (0-0); Total Cells Counted 100
[2018-12-01] MEDS ORDERED: SODIUM CHLORIDE 0.9% 500 ML 500 ML IV STA (12:44)
[2018-12-01] MEDS ORDERED: NALOXONE 0.4 MG/ML 1 ML VIAL IV PRN (12:52)
[2018-12-01 13:32] VITALS: BMI 21.2
[2018-12-01] MEDS ORDERED: ALBUTEROL INHALER 60 PUFF/8 GM INHALER INHALATION PRN (15:59)
[2018-12-01] MEDS ORDERED: ZOLPIDEM 10 MG TAB PEG/G-TUBE PRN (15:59)
[2018-12-01] MEDS: APIXABAN 5 MG TAB PO SCH ×2 (17:04→22:19)
[2018-12-01] MEDS: SODIUM CHLORIDE 0.9% 1,000 ML IV SCH ×2 (19:54→22:33)
[2018-12-01] MEDS ORDERED: VERAPAMIL SR 240 MG TABLET.ER PO SCH (21:00)
[2018-12-01] MEDS: IPRATROPIUM-ALBUTEROL 3 ML NEB INHALATION PRN (21:23)
[2018-12-01] MEDS: guaiFENesin 600 MG TABLET.ER PO SCH (22:42)
--- NOTE | 2018-12-01 22:52 | HP ---
HISTORY AND PHYSICAL DATE OF SERVICE: 12/01/2018. DATE OF ADMISSION: 12/01/2018. PRESENTING COMPLAINT: Dizzy. HISTORY OF PRESENTING COMPLAINT: This is a pleasant 73-year-old patient of Dr. Harish Matthews. Chronic stable medical conditions include chronic dysphagia, n.p.o., has got a PEG tube for feeding, GERD, multiple myeloma, COPD, left vocal cord paralysis and partial right vocal cord paralysis, Phillips's esophagus, on home oxygen 2 L. The patient went to see Dr. Arrington in the office today and had been feeling dizzy. The patient's heart rate had been up and blood pressure was running down. Dr. Arrington suspected atrial fibrillation and the patient sent down to the ER where he is found to be in atrial flutter/fibrillation with rapid ventricular rate. Started on Cardizem drip and he was admitted to the hospital. Because of chronic dysarthria not able to cannot obtain a very good history from the patient. Cardiology was consulted for the same. There is no fever. No chills. The patient has been having bowel movements. Tolerating his tube feeding. REVIEW OF SYSTEMS: CONSTITUTIONAL: Tired. HEENT: None. RESPIRATORY: Some shortness of breath. CARDIOVASCULAR: As above. GASTROINTESTINAL: PEG tube feeding. GENITOURINARY: None. MUSCULOSKELETAL: None. DERMATOLOGICAL: None. HEMATOLOGICAL: None. PSYCHIATRY: None. NEUROLOGICAL: None. PAST MEDICAL HISTORY: Atrial fibrillation, chronic dysphagia, PEG tube feeding, GERD, multiple myeloma, COPD, rheumatoid arthritis, left vocal cord paralysis and partial right vocal cord paralysis, Phillips's esophagus, home oxygen on 2 L, abdominal aortic aneurysm. The patient has also got facial onset sensory-motor neuropathy causing left vocal cord paralysis and partial right vocal cord paralysis. Also left upper palate partial paralysis, dysphagia, face, hand and muscle wasting and weakness. The patient recently was also admitted for aspiration pneumonia. PAST SURGICAL HISTORY: Appendectomy, hernia repair, tonsillectomy, implant in throat, PEG tube, EGD, colonoscopy, right inguinal hernia repair, left foot bunionectomy, hemorrhoidectomy, left ring trigger finger release, nasal reconstruction, vocal cord surgery, lens implants. PSYCH: History of anxiety. SOCIAL HISTORY: Lives with his . Has a walker and a cane. 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 Uses home oxygen 2 L around the clock. The patient smoked for 10 years, stopped in 1971. Alcohol occasional. FAMILY HISTORY: Colon cancer, COPD. HOME MEDICATIONS: 1. Mucinex 600 mg b.i.d. 2. Ambien 10 mg at bedtime p.r.n. 3. Omeprazole 20 mg b.i.d. 4. Claritin-D 1 tablet daily. 5. DuoNeb q.i.d. p.r.n. 6. Breo Ellipta 200/25 one puff daily. 7. Ventolin HFA 1 or 2 puffs every 6 p.r.n. ALLERGIES: ZOSYN, SULFA, PENICILLIN. PHYSICAL EXAMINATION: VITAL SIGNS: Vital signs on presentation, temperature 98.2, pulse 58, respiratory rate 20, blood pressure 68/41, pulse 97% on 2 L. GENERAL APPEARANCE: Somewhat thin built, lying in bed, tired. EYES: Pupils equal. Conjunctivae normal. HEENT: External appearance of nose and throat normal. Oral cavity normal. NECK: JVD unable to assess. Mass not palpable. Respiratory effort normal. LUNGS: Decreased breath sounds cardiovascular. CARDIOVASCULAR: Heart sounds irregular no edema. ABDOMEN: Soft, nontender. Liver and spleen not palpable. PEG tube in place. LYMPHATIC: No lymph nodes palpable in the neck and axilla. PSYCHIATRY: Alert and oriented x3. NEUROLOGICAL: Hoarse voice. No facial asymmetry. Moving all 4 limbs. INVESTIGATIONS: White count 5.9, hemoglobin 12.3, platelets 242, potassium 4.5, BUN 42, creatinine 0.98. TSH is 6.060. EKG tracing personally reviewed by me shows atrial flutter with 2 as to 1 conduction and ventricular rate of over 140. Chest x-ray film personally reviewed by me shows elevated right diaphragm. Lung perrin are clear. ASSESSMENT: 1. Persistent atrial flutter with rapid ventricular rate causing hypotension. 2. Chronic dysphagia, patient is n.p.o. 3. PEG tube. 4. Gastroesophageal reflux disease. 5. Multiple myeloma. 6. Chronic obstructive pulmonary disease in an ex-smoker. 7. 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 8. Chronic Phillips's esophagus. 9. Chronic hypoxia, on oxygen 2 L. 10.Multiple myeloma. 11.Abdominal aortic aneurysm. PLAN: The patient is started on Cardizem drip. Other medication and treatment plan is to continue. Patient remains n.p.o. PEG tube feeding may be resumed. Care was discussed with the patient. Cardiology was consulted. KLAUS / JESENIA: [id number] /
[2018-12-02] MEDS: PANTOPRAZOLE SODIUM 40 MG GRANULE PKT PEG/G-TUBE SCH (06:41)
[2018-12-02] MEDS: IPRATROPIUM-ALBUTEROL 3 ML NEB INHALATION PRN ×2 (08:14→19:58)
[2018-12-02] MEDS: SYMBICORT 160-4.5 MCG INHALER INHALATION SCH ×2 (08:14→19:57)
--- NOTE | 2018-12-02 09:01 | P.CRDCN ---
History of Present Illness Consult date: 12/02/18 Requesting physician: Taco Carrillo Consult reason: atrial flutter Chief complaint: Dizziness and near syncope History of present illness: This is a 73-year-old gentleman who follows with Dr. Culver in the office. 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 He Was Noted at That Time to Have Dark Stools. He Was Hypotensive, Medication Adjustments Were Made. Prior to That Admission the Patient Had Been on Eliquis and Plavix. Both of These Blood Thinners Have Been Stopped on That Admission, Patient Had Refused to Go Undergo Any Scope of Any Sort. On Speaking with the Patient This Morning, He States That He Did Have a Colonoscopy Performed, However According to the GI Notes, Patient Refused It. On Admission to the Hospital Here His EKG Showed Atrial Flutter with a Rapid Ventricular Response. Chest X-Ray Showed Continued Elevation of the Right Hemidiaphragm with Resolution of Prior Small Right-Sided Pleural Effusion. Blood Pressure This Morning 122/70, heart rate in the 80s, he is currently in a normal sinus rhythm. Blood cell count 5.9, hemoglobin 12.3, platelet count 242. Sodium 134, potassium 4.5, BUN 42 and creatinine 0.9. Troponins are negative 2. TSH level 6.06. Patient had not only stopped his blood thinners he stopped all of his cardiac medications as well. The patient had been discharged home on verapamil. 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 Other hx: aspiration pneumonias-has peg tube, Phillips's esophagus, gaping esophagus, possible CVA, multiple myeloma diagnosed 3 yrs ago- no major problems with this until recently-some abnormal labs, recent admissions for aspiration pneumonia (pseudomonas) / Afib with RVR and admitted 11/06/18 with hypotension 2ndary to medications/possible upper GI bleed, home oxygen at 2L/NC and lately been wearing ATC, abdominal aortic aneurysm. History of Any Multi-Drug Resistant Organisms: None Reported Past Surgical History: Appendectomy, Hernia Repair, Orthopedic Surgery, Tonsillectomy Additional Past Surgical History / Comment(s): Field implant in throat, peg tube, EGDs, colonoscopy, R inguinal hernia, L foot bunionectomy, hemorrhoidectomy, L ring trigger finger release, nasal reconstruction, vocal cord surgery, cats/lens implants. Additional Past Anesthesia/Blood Transfusion Reaction / Comment(s): PARALYZED VOCAL CHORDS. Pt has received blood in past without reaction. Smoking Status: Former smoker - Past Family History Sister(s) Additional Family Medical History / Comment(s): passed colon CA Brother(s) Additional Family Medical History / Comment(s): sarcidosis Mother Family Medical History: COPD Additional Family Medical History / Comment(s): lung CA Son(s) Family Medical History: Hypertension Additional Family Medical History / Comment(s): lymphoma, sarcoidosis Father Family Medical History: No Reported History Additional Family Medical History / Comment(s): Father was healthy Medications and Allergies Home Medications Medication Instructions Recorded Confirmed Type Omeprazole 20 mg PEG/G-TUBE BID 07/31/14 12/01/18 History Loratadine-Pseudoeph 10-240 mg 1 tab PEG/G-TUBE DAILY 05/01/17 12/01/18 History [Claritin-D 24 Hour] guaiFENesin [Mucinex] 600 mg PEG/G-TUBE BID 04/23/18 12/01/18 History Fluticasone/Vilanterol [Breo 1 puff INHALATION RT-DAILY 10/24/18 12/01/18 History Ellipta 200-25 Mcg INH] Albuterol Inhaler [Ventolin Hfa 1 - 2 puff INHALATION RT-Q6H PRN 11/06/18 12/01/18 History Inhaler] Ipratropium-Albuterol Nebulize 3 ml INHALATION RT-QID PRN 11/06/18 12/01/18 History [Duoneb 0.5 mg-3 mg/3 ml Soln] Zolpidem [Ambien] 10 mg PEG/G-TUBE HS PRN 11/06/18 12/01/18 History Allergies Allergy/AdvReac Type Severity Reaction Status Date / Time Penicillins Allergy Itching Verified 12/01/18 11:23 piperacillin [From Zosyn] Allergy Itching Verified 12/01/18 11:23 Sulfa (Sulfonamide Allergy Rash/Hives Verified 12/01/18 11:23 Antibiotics) tazobactam [From Zosyn] Allergy Itching Verified 12/01/18 11:23 Physical Exam Vitals: Vital Signs Temp Pulse Pulse Resp BP BP Pulse Ox 12/02/18 08:14 76 12/02/18 03:01 98.5 F 82 18 135/72 95 12/02/18 00:00 79 18 122/72 96 12/01/18 21:33 86 12/01/18 21:25 86 12/01/18 20:00 98 F 71 18 116/71 98 12/01/18 14:47 98.1 F 104 H 18 103/62 99 12/01/18 14:00 98.1 F 86 18 108/84 99 12/01/18 13:00 98 18 104/71 98 12/01/18 12:00 112 H 18 99/70 98 12/01/18 11:20 135 H 18 86/72 12/01/18 10:45 98.2 F 58 L 20 68/41 97 Intake and Output 12/01/18 12/02/18 12/02/18 22:59 06:59 14:59 Output Total 600 Balance -600 Output: Urine 600 Other: Weight 67.4 kg PHYSICAL EXAMINATION: GENERAL: 73-year-old gentleman in no acute distress at the time of my examination HEENT: Head is atraumatic, normocephalic. Pupils equal, round. Sclera anicteric. Conjunctiva are clear. Mucous membranes of the mouth are moist. Neck is supple. There is no elevated jugular venous pressure. No carotid br uit is heard. HEART EXAMINATION: Heart S1, S2 normal. No murmur or gallop heard. CHEST EXAMINATION: Reveal fine crackles to bilateral bases ABDOMEN: Soft, nontender. Bowel sounds are heard. No organomegaly noted. PEG tube in place EXTREMITIES: 2+ peripheral pulses with no evidence of peripheral edema and no calf tenderness noted. NEUROLOGIC patient is awake, alert and oriented 3 . . Results 12/01/18 11:00 12/01/18 11:00 Cardiac Enzymes 12/01/18 12/01/18 Range/Units 11:00 11:00 AST 41 (17-59) U/L Troponin I <0.012 (0.000-0.034) ng/mL Coagulation 12/01/18 Range/Units 11:00 PT 9.4 (9.0-12.0) sec APTT 23.3 (22.0-30.0) sec CBC 12/01/18 Range/Units 11:00 WBC 5.9 (3.8-10.6) k/uL RBC 3.83 L (4.30-5.90) m/uL Hgb 12.3 L (13.0-17.5) gm/dL Hct 38.2 L (39.0-53.0) % Plt Count 242 (150-450) k/uL Comprehensive Metabolic Panel 12/01/18 Range/Units 11:00 Sodium 134 L (137-145) mmol/L Potassium 4.5 (3.5-5.1) mmol/L Chloride 86 L (98-107) mmol/L Carbon Dioxide 37 H (22-30) mmol/L BUN 42 H (9-20) mg/dL Creatinine 0.98 (0.66-1.25) mg/dL Glucose 71 L (74-99) mg/dL Calcium 10.0 (8.4-10.2) mg/dL AST 41 (17-59) U/L ALT 41 (21-72) U/L Alkaline Phosphatase 98 (38-126) U/L Total Protein 7.6 (6.3-8.2) g/dL Albumin 4.3 (3.5-5.0) g/dL Current Medications Generic Name Dose Route Start Last Admin Trade Name Freq PRN Reason Stop Dose Admin Albuterol/Ipratropium 3 ml 12/01/18 15:59 12/02/18 08:14 Duoneb 0.5 Mg-3 Mg/3 Ml Soln INHALATION 3 ml RT-QID PRN Administration Shortness Of Breath Apixaban 5 mg 12/01/18 21:00 12/01/18 22:19 Eliquis PO Not Given BID MARILYN Budesonide/Formoterol Fumarate 2 puff 12/02/18 08:00 12/02/18 08:14 Symbicort 160-4.5 Mcg Inhaler INHALATION 2 puff RT-BID MARILYN Administration Guaifenesin 600 mg 12/01/18 21:00 12/01/18 22:42 Mucinex PO 600 mg BID MARILYN Administration Sodium Chloride 1,000 mls @ 75 mls/hr 12/01/18 13:00 12/01/18 22:33 Saline 0.9% IV Not Given .[id number] MARILYN Loratadine/Pseudoephedrine Sulfate 1 each 12/02/18 09:00 Claritin-D 12 Hr PO BID MARILYN Naloxone HCl 0.2 mg 12/01/18 12:52 Narcan IV Q2M PRN Opioid Reversal Pantoprazole Sodium 40 mg 12/02/18 07:30 12/02/18 06:41 Protonix PEG/G-TUBE 40 mg AC-BRKFST MARILYN Administration Verapamil HCl 240 mg 12/01/18 21:00 12/01/18 22:05 Isoptin Sr PO Not Given HS MARILYN Zolpidem Tartrate 10 mg 12/01/18 15:59 Ambien PEG/G-TUBE HS PRN Insomnia Intake and Output 12/01/18 12/02/18 12/02/18 22:59 06:59 14:59 Output Total 600 Balance -600 Output: Urine 600 Other: Weight 67.4 kg 12/01/18 11:00 12/01/18 11:00 EKG Interpretations (text) EKG on presentation here showed atrial flutter with rapid ventricular response. Assessment and Plan Plan: Assessment and plan #1 symptoms of dizziness with associated near syncope. Likely secondary to atrial flutter with rapid ventricular response. Patient currently in normal sinus rhythm #2 paroxysmal atrial fibrillation, Eliquis discontinued on recent admission because of maroon stools #3 recent hospitalization with hypotension and GI bleed #4 recent bilateral pneumonia #5 prior CVA #6 chronic dysphasia, PEG tube in place #7 multiple myeloma #8 COPD #9 vocal cord paralysis #10 Phillips's esophagus Plan We will obtain an echocardiogram with Doppler study. TSH level came back at 6.0. We will attempt to resume the Eliquis, and put the patient back on verapamil , we will not use a sustained-release, because the patient appeared to become quite hypotensive with the sustained release in the past. We'll monitor blood pressure closely as well as hemoglobin. Further recommendations to follow. DNP note has been reviewed, I agree with a documented findings and plan of care. Patient was seen and examined.
[2018-12-02] MEDS: LORATADINE-PSEUDOEPH 5-120 MG 1 EACH TAB.ER.12H PO SCH ×2 (09:53→21:18)
[2018-12-02] MEDS: APIXABAN 5 MG TAB PO SCH (09:53)
[2018-12-02] MEDS: VERAPAMIL 80 MG TAB PO SCH ×3 (09:53→21:18)
[2018-12-02] MEDS: guaiFENesin 600 MG TABLET.ER PO SCH (09:54)
--- NOTE | 2018-12-02 12:14 | CDI ---
Documentation Clarification Form Date: 12/02/2018 11:59:45 AM From: Angeline Alarcon, ALPHONSO, CCDS Admit Date: 12/01/2018 12:52:00 PM Patient Name: Kae Ferro Visit Number: [id number] Discharge Date: ATTENTION: The Clinical Documentation Specialists (CDI) and [facility] Coding Staff appreciate your assistance in clarifying documentation. Please respond to the clarification below the line at the bottom and electronically sign. The CDI & [facility] Coding staff will review the response and follow-up if needed. Please note: Queries are made part of the Legal Health Record. If you have any questions, please contact the author of this message via ITS. Dr. Taco Carrillo: Per the History & Physical: "Also left upper palate partial paralysis, dysphagia, face, hand and muscle wasting and weakness." History/Risk Factors: Chronic dysphagia, PEG feeding tube, GERD, Multiple Myeloma, COPD, Facial onset sensory-motor neuropathy causing left vocal cord paralysis & partial right vocal cord paralysis, Phillips's esophagus, AAA, home O2 2Lnc. Clinical Indicators: Presented to ER in Atrial flutter & Atrial fibrillation. Recently admitted with aspiration pneumonia & GI bleed. Labs: Hgb 12.3*, Na 134*, BUN 42^, Glucose 71*, TSH 6.060^, Total Protein (7.6), Albumin (4.3). BMI: 21.9 Nursing/Dietary Assessment: NPO w/PEG tube, Gait weak, Ambulate w/assistance, underweight: Ht 5 ft 9 in, Wt: 67.4 kg. Swallowing difficulty, dysphagia due to Phillips's esophagus. Treatment: Continued NPO w/tube feeds. IV Cardizam drip, IV fluid 100, Albuterol INH, Eliquis & Verapamil resumed. In your professional opinion, can you please clarify if these findings signify one of the following conditions? Mild Protein-Calorie Malnutrition Moderate Protein-Calorie Malnutrition Severe Protein-Calorie Malnutrition Malnutrition following surgery, specify acuity. Other condition, please specify Unable to determine (Last Revision: October 2017) no malnutrition MTDD
[2018-12-02] MEDS: [UNRECOGNIZED DRUG - OTHER] PO SCH ×2 (18:15→21:18)
[2018-12-02] MEDS: COUGH PO SCH ×2 (18:15→21:18)
[2018-12-02] MEDS: SODIUM CHLORIDE 0.9% 1,000 ML IV SCH ×2 (18:20→21:25)
[2018-12-02] MEDS: APIXABAN 2.5 MG TABLET PO SCH (21:18)
[2018-12-03] MEDS: PANTOPRAZOLE SODIUM 40 MG GRANULE PKT PEG/G-TUBE SCH (06:14)
--- NOTE | 2018-12-03 06:44 | PN ---
PROGRESS NOTE DATE OF SERVICE: 12/02/2018 PRESENTING COMPLAINT: Tired. INTERVAL HISTORY: This patient has got a chronic PEG tube, multiple other problems, presented with atrial fibrillation with rapid ventricular rate. Heart rate was better controlled this morning, taken off the Cardizem drip. Patient was put on short-acting verapamil. The patient otherwise tolerating his tube feeding. REVIEW OF SYSTEMS: Done for constitutional, cardiovascular, GI, pulmonary; relevant findings as above. CURRENT MEDICATIONS: Current medications are reviewed that include verapamil 80 mg p.o. t.i.d. PHYSICAL EXAMINATION: On examination, temperature 98.3, pulse 76, respirations 16, blood pressure 123/72, pulse ox 96% on 2 L. GENERAL APPEARANCE: Lying in bed, awake. EYES: Pupils equal. Conjunctivae normal. NECK: JVD not raised. Mass not palpable. RESPIRATORY: Effort normal. LUNGS: Diminished breath sounds. CARDIOVASCULAR: Heart sounds irregular, no edema. ABDOMEN: Soft, nontender. Liver and spleen not palpable. PEG tube in place. PSYCHIATRY: Alert and oriented x3. Mood and affect normal. NEUROLOGICAL: Coarse voice present. INVESTIGATIONS: No blood work from today. ASSESSMENT: 1. Persistent atrial flutter with rapid ventricular rate upon presentation causing hypotension, now better controlled. 2. Chronic dysphagia, chronically n.p.o. 3. PEG tube feeding. 4. Gastroesophageal reflux disease. 5. Multiple myeloma. 6. Chronic obstructive pulmonary disease in an ex-smoker. 7. 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 8. Chronic Phillips's esophagus. 9. Chronic hypoxic respiratory failure on home oxygen 2 L. 10.Multiple myeloma. 11.Abdominal aortic aneurysm. PLAN: Patient is switched to short-acting verapamil. Tube feeding is to continue. Care was discussed with the patient. Will follow. MMODL / IJN: [id number] /
[2018-12-03 08:05] LABS: Anion Gap 0 mmol/L; Blood Urea Nitrogen 23 mg/dL (9-20); Calcium 8.5 mg/dL (8.4-10.2); Carbon Dioxide 39 mmol/L (22-30); Chloride 96 mmol/L (98-107); Glucose 79 mg/dL (74-99); Potassium 4.5 mmol/L (3.5-5.1); Sodium 135 mmol/L (137-145)
[2018-12-03] MEDS: COUGH PO SCH (08:16)
[2018-12-03] MEDS: APIXABAN 2.5 MG TABLET PO SCH (08:16)
[2018-12-03] MEDS: [UNRECOGNIZED DRUG - OTHER] PO SCH (08:16)
[2018-12-03] MEDS: LORATADINE-PSEUDOEPH 5-120 MG 1 EACH TAB.ER.12H PO SCH (08:16)
[2018-12-03] MEDS: VERAPAMIL 80 MG TAB PO SCH ×2 (08:16→16:39)
[2018-12-03] MEDS: SYMBICORT 160-4.5 MCG INHALER INHALATION SCH (08:44)
[2018-12-03] MEDS: IPRATROPIUM-ALBUTEROL 3 ML NEB INHALATION PRN ×2 (08:44→13:16)
--- NOTE | 2018-12-03 11:12 | ECHOF ---
Referral Reason:afib MEASUREMENTS -------- HEIGHT: 175.3 cm WEIGHT: 67.1 kg BP: 135/72 RVIDd: 3.3 cm (< 3.3) IVSd: 1.3 cm (0.6 - 1.1) LVIDd: 4.2 cm (3.9 - 5.3) LVPWd: 1.4 cm (0.6 - 1.1) IVSs: 1.8 cm LVIDs: 2.6 cm LVPWs: 1.6 cm LA Diam: 5.3 cm (2.7 - 3.8) Ao Diam: 3.4 cm (2.0 - 3.7) AV Cusp: 2.2 cm (1.5 - 2.6) MV EXCURSION: 16.963 mm (> 18.000) MV EF SLOPE: 94 mm/s (70 - 150) EPSS: 0.3 cm MV E Bolivar: 0.50 m/s MV DecT: 186 ms MV A Bolivar: 0.82 m/s MV E/A Ratio: 0.61 RAP: 5.00 mmHg RVSP: 41.17 mmHg FINDINGS -------- Sinus rhythm. This was a technically adequate study. The left ventricular size is normal. There is mild concentric left ventricular hypertrophy. Overa ll left ventricular systolic function is normal with, an EF between 60 - 65 %. The right ventricle is mildly enlarged. The left atrium is markedly dilated. LA is severely dilated >40 ml/m2 The right atrium is normal in size. Interatrial and interventricular septum intact. The aortic valve is trileaflet, and appears structurally normal. No aortic stenosis or regurgitation. Vbgbjgfk-ao-gisptm mitral regurgitation is present. Mild tricuspid regurgitation present. There is mild pulmonary hypertension. Trace/mild (physiologic) pulmonic regurgitation. The aortic root size is normal. Normal inferior vena cava with normal inspiratory collapse consistent with estimated right atrial pre ssure of 5 mmHg. Echo free space represents a pericardial fat pad. Small Pleural Effusion. CONCLUSIONS -------- 1. Sinus rhythm. 2. This was a technically adequate study. 3. The left ventricular size is normal. 4. There is mild concentric left ventricular hypertrophy. 5. Overall left ventricular systolic function is normal with, an EF between 60 - 65 %. 6. The right ventricle is mildly enlarged. 7. The left atrium is markedly dilated. 8. LA is severely dilated >40 ml/m2 9. The right atrium is normal in size. 10. Interatrial and interventricular septum intact. 11. The aortic valve is trileaflet, and appears structurally normal. No aortic stenosis or regurgitat ion. 12. Ilvfpzka-hr-hloogu mitral regurgitation is present. 13. Mild tricuspid regurgitation present. 14. There is mild pulmonary hypertension. 15. Trace/mild (physiologic) pulmonic regurgitation. 16. The aortic root size is normal. 17. Normal inferior vena cava with normal inspiratory collapse consistent with estimated right atrial pressure of 5 mmHg. 18. Echo free space represents a pericardial fat pad. 19. Small Pleural Effusion. HAND UMBRELLA TIPPER: Susan Vasquez RDCS
[2018-12-03 12:28] VITALS: BP 128/80; RESP 18; TEMP 98.2
--- NOTE | 2018-12-03 13:18 | P.PN ---
Subjective Progress Note Date: 12/03/18 Principal diagnosis: Paroxysmal atrial fibrillation This is a 73-year-old gentleman who was admitted to the hospital with atrial flutter and rapid ventricular response and symptoms of dizziness and lightheadedness. On follow-up with him today, he is doing good and he feels better. No chest pain or chest discomfort. From the cardiac standpoint of view, the patient can be discharged home. Objective - Vital Signs Vital signs: Vital Signs Temp 98.2 F 12/03/18 11:45 Pulse 71 12/03/18 11:45 Resp 18 12/03/18 11:45 BP 128/80 12/03/18 11:45 Pulse Ox 99 12/03/18 11:45 Intake & Output 12/02/18 12/03/18 12/03/18 18:59 06:59 18:59 Output Total 915 Balance -915 Weight 68.3 kg Output: Urine 915 Other: Voiding Method Urinal Urinal Urinal # Voids 1 - Constitutional General appearance: Present: no acute distress - Respiratory Respiratory: bilateral: diminished - Cardiovascular Rhythm: regular Heart sounds: normal: S1, S2 - Labs CBC & Chem 7: 12/01/18 11:00 12/03/18 07:17 Labs: Abnormal Lab Results - Last 24 Hours (Table) 12/03/18 Range/Units 07:17 Sodium 135 L (137-145) mmol/L Chloride 96 L (98-107) mmol/L Carbon Dioxide 39 H (22-30) mmol/L BUN 23 H (9-20) mg/dL Creatinine 0.61 L (0.66-1.25) mg/dL Assessment and Plan Assessment: Assessment #1 dizziness and lightheadedness which has improved #2 paroxysmal atrial fibrillation Plan #1 continue the current medical regimen #2 the patient can be discharged home.
[2018-12-03 13:27] VITALS: PULSE 69
--- NOTE | 2018-12-04 14:07 | DS ---
DISCHARGE SUMMARY DATE OF ADMISSION: 12/01/2018 DATE OF DISCHARGE: 12/03/2018 FINAL DIAGNOSES: 1. Persistent atrial flutter with a rapid ventricular rate on presentation and causing hypotension. 2. Chronic dysphagia, chronically n.p.o. with PEG tube feeding. 3. Gastroesophageal reflux disease. 4. Multiple myeloma. 5. Chronic obstructive pulmonary disease in an ex-smoker. 6. 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 7. Chronic Phillips's esophagus. 8. Chronic hypoxic respiratory failure on home oxygen 2 L. 9. Abdominal aortic aneurysm. HOSPITAL COURSE: This patient with known atrial flutter fibrillation presented rapid ventricular rate, low blood pressure. The patient's long-acting verapamil was switched to short-acting verapamil. Patient doing much better this morning. Discussed with Dr. Keita. On examination, temperature 98.2, pulse 71, respiration 18, blood pressure 128/80, pulse ox 99% on 3 L. ABDOMEN: Soft, nontender. PEG tube in place. LUNGS: Decreased breath sounds. LABS: Potassium 4.5, BUN 23, creatinine 0.61. DISCHARGE MEDICATIONS: 1. Omeprazole 20 mg b.i.d. 2. Claritin D 1 tablet daily. 3. Mucinex 600 mg b.i.d. 4. Breo Ellipta 200/25 one puff daily. 5. Ventolin HFA 1 or 2 puffs q.6 p.r.n. 6. DuoNeb q.i.d. p.r.n. 7. Ambien 10 mg q.h.s. 8. Eliquis 2.5 mg b.i.d. 9. Verapamil 80 mg p.o. t.i.d. The patient is n.p.o., all medications through PEG tube. Follow up with Dr. Harish Matthews 2 days. Follow up with Dr. Catalina Dill on 12/21/2018. MMODL / IJN: [id number] /
== END 2018-12-03 17:33 | disposition home health service (06) | DRG 309 ==
LOC: EC 10:36 → 3SCARD 12:52
PROVIDERS: ADMIT Hospitalist; ATTEND Hospitalist
PROC: 3E0G76Z Introduction of Nutritional Substance into Upper GI, Via Natural or Artificial Opening (ICD-10-PCS; principal; 2018-12-01)
DX: I48.92 Unspecified atrial flutter (principal); C90.00 Multiple myeloma not having achieved remission; J96.11 Chronic respiratory failure with hypoxia; J44.9 Chronic obstructive pulmonary disease, unspecified; G62.9 Polyneuropathy, unspecified; J38.01 Paralysis of vocal cords and larynx, unilateral; E86.0 Dehydration; R13.10 Dysphagia, unspecified; I95.9 Hypotension, unspecified; M06.9 Rheumatoid arthritis, unspecified; K21.9 Gastro-esophageal reflux disease without esophagitis; K22.70 Barrett's esophagus without dysplasia; F41.9 Anxiety disorder, unspecified; R47.1 Dysarthria and anarthria; I71.4 Abdominal aortic aneurysm, without rupture; I48.0 Paroxysmal atrial fibrillation; M62.50 Muscle wasting and atrophy, not elsewhere classified, unspecified site; Z79.899 Other long term (current) drug therapy; Z86.73 Personal history of transient ischemic attack (TIA), and cerebral infarction without residual deficits; Z90.49 Acquired absence of other specified parts of digestive tract; Z99.81 Dependence on supplemental oxygen; Z91.14 Patient's other noncompliance with medication regimen; Z93.1 Gastrostomy status; Z87.01 Personal history of pneumonia (recurrent); Z87.891 Personal history of nicotine dependence; Z98.42 Cataract extraction status, left eye; Z98.41 Cataract extraction status, right eye; Z96.1 Presence of intraocular lens; Z88.1 Allergy status to other antibiotic agents; Z88.0 Allergy status to penicillin; Z88.2 Allergy status to sulfonamides; Z80.0 Family history of malignant neoplasm of digestive organs; Z82.5 Family history of asthma and other chronic lower respiratory diseases; Z80.1 Family history of malignant neoplasm of trachea, bronchus and lung; Z82.49 Family history of ischemic heart disease and other diseases of the circulatory system; Z80.7 Family history of other malignant neoplasms of lymphoid, hematopoietic and related tissues
CPT/HCPCS: 36415; 71046; 80048; 80053; 82550; 83735; 84443; 84484; 85025; 85610; 85730; 93005; 93306; 94640; 94760; 96365; 96366; 96376; 99285

== ENCOUNTER 2018-12-26 01:48 | Observation (INO) | payer MEDICARE ==
[2018-12-26] MEDS ORDERED: FAMOTIDINE 20 MG/2 ML VIAL IV STA (02:21)
[2018-12-26] MEDS ORDERED: SODIUM CHLORIDE 0.9% 500 ML 500 ML IV STA (02:21)
[2018-12-26] MEDS ORDERED: ONDANSETRON 4 MG/2 ML VIAL IVP STA ×2 (02:47→03:31)
[2018-12-26 03:22] LABS: Basophils % (A) 0 %; Eosinophils # (A) 0.2 k/uL (0-0.7); Eosinophils % (A) 3 %; HCT 32.9 % (39.0-53.0); HGB 10.9 gm/dL (13.0-17.5); Lymphocytes % (A) 15 %; MCH 32.4 pg (25.0-35.0); MCHC 33.2 g/dL (31.0-37.0); MCV 97.6 fL (80.0-100.0); Monocytes # (A) 0.3 k/uL (0-1.0); Monocytes % (A) 4 %; Neutrophils # (A) 4.8 k/uL (1.3-7.7); Neutrophils % (A) 76 %; Platelet Count 247 k/uL (150-450); RBC 3.38 m/uL (4.30-5.90); WBC 6.4 k/uL (3.8-10.6)
[2018-12-26 03:29] LABS: ALT 37 U/L (21-72); AST 39 U/L (17-59); Albumin 4.2 g/dL (3.5-5.0); Alkaline Phosphatase 132 U/L (38-126); Amylase 65 U/L (30-110); Anion Gap 7 mmol/L; Blood Urea Nitrogen 32 mg/dL (9-20); Calcium 10.4 mg/dL (8.4-10.2); Carbon Dioxide 38 mmol/L (22-30); Chloride 90 mmol/L (98-107); Glucose 108 mg/dL (74-99); Lipase 124 U/L (23-300); Potassium 4.8 mmol/L (3.5-5.1); Sodium 135 mmol/L (137-145); Total Bilirubin 0.6 mg/dL (0.2-1.3); Total Protein 7.6 g/dL (6.3-8.2)
[2018-12-26] MEDS ORDERED: MORPHINE SULFATE 2 MG/ML SYRINGE IVP STA (04:22)
--- NOTE | 2018-12-26 04:25 | ED ---
Abdominal Pain HPI - General Source: patient Mode of arrival: EMS Limitations: no limitations <Nichole Deras - Last Filed: 12/26/18 04:22> <Raphael Vann - Last Filed: 12/26/18 06:19> - General Chief Complaint: Abdominal Pain Stated Complaint: Abd Pain Time Seen by Provider: 12/26/18 02:06 - History of Present Illness Initial Comments: 73-year-old male patient with past medical history significant for neuromuscular disorder requiring PEG tube presents to the emergency department today for evaluation of upper abdominal pain. Patient states the pain started approximately 4-5 hours ago. States it has been worsening. Denies any radiation of pain to his back. States he has been nauseated. States that he does have a dilated esophagus and does have aspiration if he vomits, was concerned and presented here for further evaluation. He denies any fever or chills. Denies any diarrhea or constipation. States that he did aspirate fluid from his PEG tube and did have a pink tinge however he did have some Tums earlier. Patient denies any recent rash, shortness of breath, chest pain, back pain, numbness, tingling, dizziness, weakness, hematuria, dysuria, urinary urgency, urinary frequency, headache, visual changes, or any other complaints. (Nichole Deras) - Related Data Home Medications Medication Instructions Recorded Confirmed Omeprazole 20 mg PEG/G-TUBE BID 07/31/14 12/26/18 guaiFENesin [Mucinex] 600 mg PEG/G-TUBE BID 04/23/18 12/26/18 Fluticasone/Vilanterol [Breo 1 puff INHALATION RT-DAILY 10/24/18 12/26/18 Ellipta 200-25 Mcg INH] Albuterol Inhaler [Ventolin Hfa 1 - 2 puff INHALATION RT-Q6H PRN 11/06/18 12/26/18 Inhaler] Ipratropium-Albuterol Nebulize 3 ml INHALATION RT-QID PRN 11/06/18 12/26/18 [Duoneb 0.5 mg-3 mg/3 ml Soln] Zolpidem [Ambien] 10 mg PEG/G-TUBE HS PRN 11/06/18 12/26/18 Loratadine-Pseudoeph 10-240 mg 1 each PO DAILY 12/26/18 12/26/18 [Claritin-D 24 Hr] Midodrine HCl 5 mg PO 12/26/18 12/26/18 Previous Rx's Medication Instructions Recorded Apixaban [Eliquis] 2.5 mg PO BID #60 tablet 12/03/18 Allergies Allergy/AdvReac Type Severity Reaction Status Date / Time Penicillins Allergy Itching Verified 12/01/18 11:23 piperacillin [From Zosyn] Allergy Itching Verified 12/01/18 11:23 Sulfa (Sulfonamide Allergy Rash/Hives Verified 12/01/18 11:23 Antibiotics) tazobactam [From Zosyn] Allergy Itching Verified 12/01/18 11:23 Review of Systems ROS Other: All systems not noted in ROS Statement are negative. <Nichole Deras - Last Filed: 12/26/18 04:22> ROS Other: All systems not noted in ROS Statement are negative. <Raphael Vann - Last Filed: 12/26/18 06:19> ROS Statement: Those systems with pertinent positive or pertinent negative responses have been documented in the HPI. 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 Other hx: aspiration pneumonias-has peg tube, Phillips's esophagus, gaping esophagus, possible CVA, multiple myeloma diagnosed 3 yrs ago- no major problems with this until recently-some abnormal labs, recent admissions for aspiration pneumonia (pseudomonas) / Afib with RVR and admitted 11/06/18 with hypotension 2ndary to medications/possible upper GI bleed, home oxygen at 2L/NC and lately been wearing ATC, abdominal aortic aneurysm. History of Any Multi-Drug Resistant Organisms: None Reported Past Surgical History: Appendectomy, Hernia Repair, Orthopedic Surgery, To nsillectomy Additional Past Surgical History / Comment(s): Field implant in throat, peg tube, EGDs, colonoscopy, R inguinal hernia, L foot bunionectomy, hemorrhoidectomy, L ring trigger finger release, nasal reconstruction, vocal cord surgery, cats/lens implants. Additional Past Anesthesia/Blood Transfusion Reaction / Comment(s): PARALYZED VOCAL CHORDS. Pt has received blood in past without reaction. Past Psychological History: Anxiety Smoking Status: Former smoker - Past Family History Sister(s) Additional Family Medical History / Comment(s): passed colon CA Brother(s) Additional Family Medical History / Comment(s): sarcidosis Mother Family Medical History: COPD Additional Family Medical History / Comment(s): lung CA Son(s) Family Medical History: Hypertension Additional Family Medical History / Comment(s): lymphoma, sarcoidosis Father Family Medical History: No Reported History Additional Family Medical History / Comment(s): Father was healthy <Nichole Deras M - Last Filed: 12/26/18 04:22> General Exam Limitations: no limitations General appearance: alert, in no apparent distress, other (Physical well- developed, well-nourished elderly male patient in no acute distress. Vital signs upon presentation are temperature 98.4F, pulse 105, respirations 20, pulse ox 99% on room air.) Eye exam: Present: normal appearance, PERRL, EOMI. Absent: scleral icterus, conjunctival injection, periorbital swelling ENT exam: Present: normal exam, normal oropharynx, mucous membranes moist Respiratory exam: Present: normal lung sounds bilaterally. Absent: respiratory distress, wheezes, rales, rhonchi, stridor Cardiovascular Exam: Present: normal rhythm, tachycardia, normal heart sounds. Absent: systolic murmur, diastolic murmur, rubs, gallop, clicks GI/Abdominal exam: Present: soft, tenderness (Midepigastric tenderness), normal bowel sounds. Absent: distended, guarding, rebound, rigid Neurological exam: Present: alert, oriented X3, CN II-XII intact Psychiatric exam: Present: normal affect, normal mood Skin exam: Present: warm, dry, intact, normal color. Absent: rash <Nichole Deras - Last Filed: 12/26/18 04:22> Course Vital Signs 12/26/18 12/26/18 12/26/18 01:50 05:01 05:57 Temperature 98.4 F Pulse Rate 105 H 81 82 Respiratory 20 20 18 Rate Blood Pressure 144/117 152/93 140/96 O2 Sat by Pulse 99 97 98 Oximetry Medical Decision Making - Lab Data Result diagrams: 12/26/18 02:12 12/26/18 02:12 <Nichole Deras - Last Filed: 12/26/18 04:22> - Lab Data Result diagrams: 12/26/18 02:12 12/26/18 02:12 - EKG Data -: EKG Interpreted by Me EKG shows normal: sinus rhythm (Rate 81 bpm), axis (Normal), intervals, ST-T waves (Normal) Rate: normal (Rate 81 bpm) Interpretation: LVH <Raphael Vann - Last Filed: 12/26/18 06:19> - Medical Decision Making I saw this patient in conjunction with the physician health care assistant. I performed independent history and physical exam. Agree with case management. Patient 73-year-old man presenting with upper abdominal pain. Workup not revealing the exact etiology of pain. Patient not having much improvement in symptoms despite medication, will admit for further evaluation and treatment. (Raphael Vann) - Lab Data Lab Results 12/26/18 12/26/18 12/26/18 Range/Units 02:12 02:12 02:12 WBC 6.4 (3.8-10.6) k/uL RBC 3.38 L (4.30-5.90) m/uL Hgb 10.9 L (13.0-17.5) gm/dL Hct 32.9 L (39.0-53.0) % MCV 97.6 (80.0-100.0) fL MCH 32.4 (25.0-35.0) pg MCHC 33.2 (31.0-37.0) g/dL RDW 15.0 (11.5-15.5) % Plt Count 247 (150-450) k/uL Neutrophils % 76 % Lymphocytes % 15 % Monocytes % 4 % Eosinophils % 3 % Basophils % 0 % Neutrophils # 4.8 (1.3-7.7) k/uL Lymphocytes # 1.0 (1.0-4.8) k/uL Monocytes # 0.3 (0-1.0) k/uL Eosinophils # 0.2 (0-0.7) k/uL Basophils # 0.0 (0-0.2) k/uL Sodium 135 L (137-145) mmol/L Potassium 4.8 (3.5-5.1) mmol/L Chloride 90 L (98-107) mmol/L Carbon Dioxide 38 H (22-30) mmol/L Anion Gap 7 mmol/L BUN 32 H (9-20) mg/dL Creatinine 0.68 (0.66-1.25) mg/dL Est GFR (CKD-EPI)AfAm >90 (>60 ml/min/1.73 sqM) Est GFR (CKD-EPI)NonAf >90 (>60 ml/min/1.73 sqM) Glucose 108 H (74-99) mg/dL Plasma Lactic Acid Cristian 1.6 (0.7-2.0) mmol/L Calcium 10.4 H (8.4-10.2) mg/dL Total Bilirubin 0.6 (0.2-1.3) mg/dL AST 39 (17-59) U/L ALT 37 (21-72) U/L Alkaline Phosphatase 132 H (38-126) U/L Troponin I (0.000-0.034) ng/mL Total Protein 7.6 (6.3-8.2) g/dL Albumin 4.2 (3.5-5.0) g/dL Amylase 65 (30-110) U/L Lipase 124 (23-300) U/L 12/26/18 Range/Units 02:12 WBC (3.8-10.6) k/uL RBC (4.30-5.90) m/uL Hgb (13.0-17.5) gm/dL Hct (39.0-53.0) % MCV (80.0-100.0) fL MCH (25.0-35.0) pg MCHC (31.0-37.0) g/dL RDW (11.5-15.5) % Plt Count (150-450) k/uL Neutrophils % % Lymphocytes % % Monocytes % % Eosinophils % % Basophils % % Neutrophils # (1.3-7.7) k/uL Lymphocytes # (1.0-4.8) k/uL Monocytes # (0-1.0) k/uL Eosinophils # (0-0.7) k/uL Basophils # (0-0.2) k/uL Sodium (137-145) mmol/L Potassium (3.5-5.1) mmol/L Chloride (98-107) mmol/L Carbon Dioxide (22-30) mmol/L Anion Gap mmol/L BUN (9-20) mg/dL Creatinine (0.66-1.25) mg/dL Est GFR (CKD-EPI)AfAm (>60 ml/min/1.73 sqM) Est GFR (CKD-EPI)NonAf (>60 ml/min/1.73 sqM) Glucose (74-99) mg/dL Plasma Lactic Acid Cristian (0.7-2.0) mmol/L Calcium (8.4-10.2) mg/dL Total Bilirubin (0.2-1.3) mg/dL AST (17-59) U/L ALT (21-72) U/L Alkaline Phosphatase (38-126) U/L Troponin I <0.012 (0.000-0.034) ng/mL Total Protein (6.3-8.2) g/dL Albumin (3.5-5.0) g/dL Amylase (30-110) U/L Lipase (23-300) U/L Disposition <Nichole Deras - Last Filed: 12/26/18 04:22> Is patient prescribed a controlled substance at d/c from ED?: No <Raphael Vann - Last Filed: 12/26/18 06:19> Clinical Impression: Abdominal pain Disposition: ADMITTED IP TO THIS HOSP Condition: Fair Instructions (If sedation given, give patient instructions): Abdominal Pain (ED) Referrals: Harish Alvarado DO [Primary Care Provider] - 1-2 days
--- NOTE | 2018-12-26 04:26 | XR ---
EXAM: XR Abdomen, 1 View CLINICAL HISTORY: ITS.REASON XR Reason: abdominal pain TECHNIQUE: Frontal supine view of the abdomen/pelvis. COMPARISON: 01/28/18 x-ray IMPRESSION: No bowel obstruction. Copious amounts of stool. No free air.
--- NOTE | 2018-12-26 05:07 | CT ---
EXAM: CT Abdomen and Pelvis With Intravenous Contrast CLINICAL HISTORY: ITS.REASON CT Reason: Pain TECHNIQUE: Axial computed tomography images of the abdomen and pelvis with intravenous contrast. CTDI is 14 mGy and DLP is 602 mGy-cm. This CT exam was performed using one or more of the following dose reduction techniques: automated exposure control, adjustment of the mA and/or kV according to patient size, and/or use of iterative reconstruction technique. COMPARISON: 08/05/2015 CT abdomen FINDINGS: Lung bases: Trace right pleural effusion with compressive atelectasis. ABDOMEN: Liver: Unremarkable. Gallbladder and bile ducts: Unremarkable. Pancreas: 1 cm hypodense lesion in the body. Spleen: Unremarkable. Adrenals: Unremarkable. Kidneys and ureters: No hydronephrosis. Stomach and bowel: No bowel obstruction. No bowel wall thickening. G- tube is in place. Colonic diverticulosis. PELVIS: Appendix: No evidence of appendicitis. Bladder: Unremarkable. Reproductive: Unremarkable. ABDOMEN and PELVIS: Intraperitoneal space: Unremarkable. Bones/joints: No acute fractures. Soft tissues: Unremarkable. Vasculature: Ectatic aorta measuring up to 2.8 cm. Lymph nodes: No enlarged lymph nodes. IMPRESSION: 1. Trace right pleural effusion with compressive atelectasis. 2. 1 cm hypodense lesion in the body of the pancreas. Correlate with pancreatic protocol CT on nonemergent basis. 3. Ectatic aorta measuring up to 2.8 cm.
[2018-12-26] MEDS ORDERED: NALOXONE 0.4 MG/ML 1 ML VIAL IV PRN (06:08)
[2018-12-26] MEDS ORDERED: ONDANSETRON 4 MG/2 ML VIAL IVP PRN (06:08)
[2018-12-26] MEDS ORDERED: MORPHINE SULFATE 4 MG/ML SYRINGE IV PRN (06:08)
[2018-12-26] MEDS ORDERED: ZOLPIDEM 10 MG TAB PEG/G-TUBE PRN (06:11)
[2018-12-26] MEDS ORDERED: ALBUTEROL NEBULIZED 2.5 MG/3 ML INHALATION PRN (06:11)
[2018-12-26] MEDS ORDERED: IPRATROPIUM-ALBUTEROL 3 ML NEB INHALATION PRN (06:11)
[2018-12-26 09:04] LABS: Appearance,Urine Clear (Clear); Bilirubin,Urine Negative (Negative); Blood,Urine Negative (Negative); Color,Urine Light Yellow; Glucose,Urine (UA) Negative (Negative); Ketones,Urine Negative (Negative); Leukocyte Esterase,Urine Negative (Negative); Nitrite,Urine Negative (Negative); PH, Urine 8.5 (5.0-8.0); Protein,Urine Negative (Negative); Specific Gravity,Urine 1.044 (1.001-1.035); Urobilinogen,Urine <2.0 mg/dL (<2.0)
[2018-12-26] MEDS: SYMBICORT 160-4.5 MCG INHALER INHALATION SCH ×2 (09:48→20:45)
[2018-12-26 10:40] VITALS: BMI 21.7
--- NOTE | 2018-12-26 12:29 | CONS ---
CONSULTATION DATE OF DICTATION: December 26, 2018. REQUESTING PHYSICIAN: Dr. Harish Matthews. REASON FOR CONSULTATION: Abdominal pain. HISTORY OF PRESENT ILLNESS: The patient is a pleasant 73 -year-old white male with past medical history significant for some neuromuscular disorder diagnosed at [facility] 2 years ago. The patient presents to the emergency room complaining of upper abdominal pain mostly in the epigastric and periumbilical area that started around 10:00 pm last night. The pain continued to progressively get worse. Never experienced such severe pain in the past. He became somewhat nauseated and had small amount of emesis of pink-tinged liquid, but he took some Tums just prior to him throwing up. He became concerned about the abdominal pain and hence came to the emergency room early this morning. A CT of the abdomen and pelvis was done in the emergency room that showed trace right-sided pleural effusion 1 cm hyperdense lesion in the body of the pancreas and ectatic aorta. This morning he is feeling much better. The pain has completely resolved. PEG tube feeds have been on hold. The patient had a PEG tube placed about 2 years ago because of oropharyngeal dysphagia from neuromuscular disorder. He denies any rectal bleeding or melena. Denies significant change in his bowel habits. PAST MEDICAL HISTORY: Significant for hypertension COPD, atrial fibrillation, gastroesophageal reflux disease, facial onset sensory-motor neuropathy diagnosed at [facility] years from 2 years ago, history of aspiration pneumonia requiring PEG tube placement 1-1/2 years ago. PAST SURGICAL HISTORY: Appendectomy, hernia repair, tonsillectomy, PEG tube placement 1-1/2 years ago, right inguinal hernia repair, hemorrhoidectomy, vocal cord surgery, bilateral cataract surgeries. FAMILY HISTORY: Sister colon cancer. Brother sarcoidosis. Mother lung cancer. Son had lymphoma. SOCIAL HISTORY: No smoking or alcohol use. REVIEW OF SYMPTOMS: Cardiopulmonary: No chest pain, shortness of breath. no dysuria hematuria. Musculoskeletal unremarkable. Skin unremarkable. Endocrine unremarkable. Psychiatric unremarkable. Neurology unremarkable. ENT vision unremarkable. Constitutional: No recent weight loss. No fever, chills, night sweats. MEDICATIONS: At home include Prilosec, Mucinex, Breo Ellipta, Ventolin, DuoNeb, Claritin, Midrin, and Ambien. ALLERGIES: TO PENICILLIN, ZOSYN, SULFA. PHYSICAL EXAMINATION: He appears comfortable no apparent distress. Vital signs stable. Blood pressure is 152/93, pulse 81, temperature 98.2. HEENT examination unremarkable. Conjunctivae pink. Sclerae anicteric. Oral cavity no lesions. NECK no JVD or lymph node enlargement. Chest was clear to auscultation. HEART: Regular rate and rhythm. ABDOMEN: Soft. Bowel sounds are positive. PEG tube in place. It was not infected. The abdomen was very benign. EXTREMITIES: No pedal edema. SKIN no rashes. NEUROLOGIC: Alert and oriented x3. No focal deficits. LABS: Done at the time of admission to the hospital, WBC 6.4, hemoglobin 10.9, platelets are normal. Basic metabolic panel is within normal limits. BUN is 32, creatinine 0.68. IMPRESSION: 1. Acute onset of severe epigastric and periumbilical abdominal pain that started last night and lasted for several hours. Came to the emergency room early this morning and a CT of the abdomen and pelvis done that showed a small 1 cm lesion in the body of the pancreas, but the rest of the CAT scan was unremarkable. This morning, the pain has completely resolved. 2. History of neuromuscular disorder for which he follows at [facility] diagnosed 2 years ago and facial onset sensory motor neuropathy (FOSMN) resulting in oropharyngeal dysphagia status post PEG tube placement approximately 2 years ago. RECOMMENDATIONS: 1. Start tube feeds today. 2. Continue with Protonix 40 mg daily. 3. I will proceed with an MRI of the pancreas with pancreatic protocol to investigate the abnormality seen on the CT of the abdomen. Thank you for this consultation. We will follow the patient closely during his hospital stay. MMODL / IJN: [id number] /
[2018-12-26] MEDS: SODIUM CHLORIDE 0.9% 1,000 ML IV SCH (17:15)
[2018-12-26] MEDS: APIXABAN 2.5 MG TABLET PO SCH ×2 (17:16→20:20)
[2018-12-26] MEDS: PANTOPRAZOLE 40 MG/10 ML VIAL IV SCH (17:16)
--- NOTE | 2018-12-26 20:18 | HP ---
HISTORY AND PHYSICAL DATE OF ADMISSION: 12/26/2018 DATE OF SERVICE: 12/26/2018. PRESENTING COMPLAINT: Epigastric pain. HISTORY OF PRESENTING COMPLAINT: This is a pleasant 73-year-old patient followed by Dr. Harish Matthews. Chronic stable medical conditions include chronic dysphagia, has a PEG tube for feeding, GERD, multiple myeloma, COPD, left vocal cord paralysis and partial right vocal cord paralysis, Phillips's esophagus. On home oxygen 2 L. The patient was recently in the hospital about 3 weeks ago and was found to have atrial flutter. The patient presented with one day of increasing epigastric pain, felt like a gripping in nature with some nausea. There was no fever and chills. The patient's bowel movements have been changed. The patient's last EGD was 2 years ago. There was no fever, no chills. When I saw this patient later this morning, the patient's symptoms had completely resolved. The patient does get bolus feeding. REVIEW OF SYSTEMS: CONSTITUTIONAL: Slightly tired. HEENT: None. RESPIRATORY none. GASTROINTESTINAL as above with the PEG tube. GENITOURINARY: None. MUSCULOSKELETAL none. DERMATOLOGIC, HEMATOLOGIC and LYMPHATIC none. PSYCHIATRY none. NEUROLOGICAL: Trouble swallowing. PAST MEDICAL HISTORY: Atrial flutter fibrillation, dysphagia, PEG tube feeding, GERD, multiple myeloma, COPD, rheumatoid arthritis, left vocal cord paralysis and partial right vocal cord paralysis, Phillips's esophagus, home oxygen 2 L, abdominal aortic aneurysm, left upper palate partial paralysis, dysphagia, face, hand and muscle wasting and weakness. PAST SURGICAL HISTORY: Appendectomy, hernia repair, tonsillectomy, implant in the throat, PEG tube, EGD, colonoscopy, right inguinal hernia repair, left foot bunionectomy, hemorrhoidectomy, left ring trigger finger release, nasal reconstruction, vocal cord surgery, lens implant. PSYCH HISTORY: Anxiety. SOCIAL HISTORY: . Has a walker and a cane. 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 Uses home oxygen 2 L around the clock. Patient smoked for 10 years. Stopped in 1971. Alcohol occasionally. FAMILY HISTORY: Colon cancer and chronic obstructive pulmonary disease. HOME MEDICATIONS: 1. Mucinex 600 mg b.i.d. 2. Ambien 5 mg q.h.s. p.r.n. 3. Omeprazole 20 mg b.i.d. 4. Midodrine 5 mg b.i.d. 5. Lopressor 12.5 p.o. daily. 6. Claritin-D 1 tablet PEG tube daily. 7. Combivent 1 puff q.i.d. p.r.n. 8. DuoNeb q.i.d. p.r.n. 9. Breo Ellipta 200/25 one puff daily. 10.Eliquis 2.5 b.i.d. 11.Ventolin HFA 1 or 2 puffs q.6 p.r.n. ALLERGIES: PENICILLIN AND ZOSYN. PHYSICAL EXAMINATION: VITAL SIGNS: Temperature 98.4, pulse 105, respirations 20, blood pressure 144/117, pulse ox 99% on room air. GENERAL APPEARANCE: Average build. BMI 21%, sitting up not in distress. EYES: Pupils equal. Conjunctivae normal. HEENT: External appearance of nose and ears normal. Oral cavity normal. NECK: JVD unable to assess. Mass not palpable. RESPIRATORY: Effort normal. LUNGS: Decreased breath sounds. CARDIOVASCULAR: 1st and 2nd sounds. LEGS: No edema. ABDOMEN: Soft, nontender. Liver and spleen not palpable. PEG tube in place. LYMPHATICS: No lymph nodes palpable in the neck and axilla. PSYCHIATRY: Alert and oriented times three. Mood and normal. NEUROLOGICAL: Hoarse voice. No facial asymmetry. Moving all 4 limbs. INVESTIGATIONS: White count 6.4, hemoglobin 10.9, potassium 4.8. BUN 32, creatinine 0.68. EKG tracing personally reviewed by me shows normal sinus rhythm CT scan of the abdomen and pelvis shows trace right pleural effusion, 1 cm hyperdense lesion of the body of the body of the pancreas, ectatic aortic measuring 2.8 cm. ASSESSMENT: 1. Acute onset of epigastric pain in the patient who has a PEG tube, could be a mechanical irritation and/or gastritis. There was no fever. No chills. Slight nausea, which actually has completely resolved. 2. 1 cm hypodense lesion in the body of the pancreas, most likely not related to the current presentation for further workup as per Gastroenterology. 3. Paroxysmal atrial flutter, currently in sinus rhythm. 4. Chronic dysphagia. 5. PEG tube. 6. Gastroesophageal reflux disease. 7. Multiple myeloma. 8. Chronic obstructive pulmonary disease in an ex-smoker. 9. 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 10.Chronic Phillips's esophagus. 11.Chronic hypoxia on home oxygen 2 L. 12.Abdominal aortic aneurysm. PLAN: Care was discussed with the patient. The patient is seen by Dr. Nuha Dill earlier today. She is ordering an MRI for the pancreatic 1 cm lesion. Follow up on the same. The patient's feeding can be resumed thereafter. Care was discussed with the patient. Copy to Dr. Harish Matthews. [id number] / IJN: [id number] /
[2018-12-27] MEDS: SODIUM CHLORIDE 0.9% 1,000 ML IV SCH (08:21)
[2018-12-27] MEDS: APIXABAN 2.5 MG TABLET PO SCH ×2 (08:22→20:08)
[2018-12-27] MEDS: PANTOPRAZOLE 40 MG/10 ML VIAL IV SCH (08:22)
[2018-12-27] MEDS: SYMBICORT 160-4.5 MCG INHALER INHALATION SCH ×2 (09:38→19:52)
--- NOTE | 2018-12-27 18:44 | MR ---
EXAMINATION TYPE: MR pancreas wo/w con DATE OF EXAM: 12/27/2018 COMPARISON: HISTORY: CT showed 1 cm mass in the body of the pancreas CONTRAST: Standard multiplanar, multisequence MRI departmental protocol utilizing 6.5 mL intravenous Gadavist g adolinium contrast. FINDINGS: There is 8 mm sharply marginated rounded cystic fluid collection in the superior anterior a spect of the body of the pancreas. This appears not changed in size compared to CT scan of yesterday. There is no wall thickening. The remainder of the pancreas appears normal. Pancreatic duct is not di lated. I see no filling defect in the common bile duct. The intrahepatic bile ducts are not dilated. Spleen shows no focal defect. There is no discrete liver mass. There is no adrenal mass. The kidneys show no hydronephrosis. There is no evidence of retroperitoneal adenopathy. The contrast images show no pathologic enhancement. There is some patchy atelectasis at the lung bases and more on the right side. There is no significant pleural fluid. There is tiny amoun t of pleural fluid on the right side. IMPRESSION: There is a thin-walled small nonenhancing cystic lesion in the body of the pancreas consistent with a pseudocyst. No dilated ducts. Old CT scan of the chest of 02/26/2017 is reviewed and I think this cyst is not changed in size.
--- NOTE | 2018-12-27 22:22 | PN ---
PROGRESS NOTE DATE OF SERVICE: December 27, 2018. PRESENT COMPLAINT: Epigastric pain. INTERVAL HISTORY: This patient with chronic PEG tube presented with epigastric pain. When I saw this patient this morning, patient was pending MRI of the pancreas. The patient did have another bout of abdominal pain which again did settle down. No nausea, vomiting. No bowel movement. REVIEW OF SYSTEMS: Done for constitutional, cardiovascular, GI, pulmonary; relevant findings as above. CURRENT MEDICATIONS: Reviewed. PHYSICAL EXAMINATION: VITAL SIGNS: Temperature 97.9, pulse 73, respirations 16, blood pressure 108/57, pulse ox 96 percent. GENERAL APPEARANCE: Sitting up, awake. EYES: Pupils are equal. Conjunctivae normal. NECK: JVD not raised. Mass not palpable. RESPIRATORY: Effort normal. LUNGS: Decreased breath sounds. CARDIOVASCULAR: 1st and 2nd sounds normal. No edema. ABDOMEN: Soft, nontender. Liver and spleen not palpable. PEG tube in place. PSYCHIATRY: Alert and oriented times three. Mood and affect normal. INVESTIGATIONS: No blood work from today. ASSESSMENT: 1. Acute onset epigastric pain. The patient has a PEG tube. Could be mechanical irritation and/or gastritis. No other signs of infection. Pain is somewhat recurrent. 2. 1 cm hypodense lesion of the body of the pancreas for which MRI has been ordered by Gastroenterology. 3. Paroxysmal atrial flutter, currently in sinus rhythm. 4. Chronic dysphagia. 5. PEG tube. 6. Gastroesophageal reflux disease. 7. Multiple myeloma. 8. Chronic obstructive pulmonary disease in an ex-smoker. 9. 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 10.Chronic Phillips's esophagus. 11.Chronic hypoxia on home oxygen 2 L. 12.Abdominal aortic aneurysm. PLAN: Continue current medication and treatment plan. Await MRI and follow up with Dr. Nuha Dill. MMODL / IJN: [id number] /
[2018-12-28 04:52] VITALS: BP 128/84; PULSE 74; RESP 18; TEMP 97.9
[2018-12-28] MEDS: SODIUM CHLORIDE 0.9% 1,000 ML IV SCH (05:20)
[2018-12-28] MEDS: SYMBICORT 160-4.5 MCG INHALER INHALATION SCH (07:57)
[2018-12-28] MEDS: APIXABAN 2.5 MG TABLET PO SCH (09:29)
[2018-12-28] MEDS: PANTOPRAZOLE 40 MG/10 ML VIAL IV SCH (09:29)
--- NOTE | 2018-12-28 11:46 | P.PN ---
Subjective Progress Note Date: 12/28/18 Principal diagnosis: Abdominal pain Feels well. Abdominal pain improved. Anticipating discharge today. MRI pancreas reported thin-walled small nonenhancing cystic lesion in the body of the pancreas consistent with a pseudocyst without dilated ducts. No filling defect in the CBD. Previous CT of the chest 2017 reviewed pseudocyst not changed in size. Pancreatic enzymes on admission within normal limits. Afebrile. Objective - Vital Signs Vital signs: Vital Signs Temp 97.9 F 12/28/18 03:44 Pulse 74 12/28/18 03:44 Resp 18 12/28/18 03:44 BP 128/84 12/28/18 03:44 Pulse Ox 99 12/28/18 07:59 Intake & Output 12/27/18 12/28/18 12/28/18 18:59 06:59 18:59 Intake Total 240 Balance 240 Weight 67 kg Intake: Oral 240 Other: Voiding Method Toilet Toilet Toilet # Voids 3 - Exam General appearance: The patient is alert, oriented, in no acute distress. HET: Head is normocephalic and atraumatic. Pupils are equal and reactive. Oropharynx is clear without lesions. Neck: Supple without lymphadenopathy. Trachea midline. Heart: S1 S2. Regular rate and rhythm. Lungs: No crackles or wheezes are heard. Abdomen: Soft, nontender, nondistended with bowel sounds. No peritoneal signs. No palpable organomegaly or masses. PEG tube without drainage or swelling. Extremities: Normal skin color and turgor. No cyanosis, rash, ulceration, clubbing, or edema. Radial and pedal pulses are 2/4 bilaterally. Neurological: No focal deficits. Strength and sensation are grossly intact. - Labs CBC & Chem 7: 12/26/18 02:12 12/26/18 02:12 Assessment and Plan (1) Abdominal pain Narrative/Plan: 73-year-old gentleman admitted with severe epigastric periumbilical abdominal pain with underlying neuromuscular disorder with abdominal imaging pancreas MRI consistent with pancreatic pseudocyst within the body without biliary pancreatic duct dilatation and normal pancreatic enzymes. Previous CT imaging chest 2017 reported pancreatic cyst reported as unchanged from current MRI of the pancreas study. Current Visit: Yes Status: Acute Code(s): R10.9 - UNSPECIFIED ABDOMINAL PAIN SNOMED Code(s): 80421298 (2) Neuromuscular disorder Current Visit: Yes Status: Chronic Code(s): G70.9 - MYONEURAL DISORDER, UNSPECIFIED SNOMED Code(s): 115128502 (3) Oropharyngeal dysphagia Current Visit: Yes Status: Chronic Code(s): R13.12 - DYSPHAGIA, OROPHARYNGEAL PHASE SNOMED Code(s): 49116596 Plan: 1. Etiology of cirrhosis is unclear patient has a history of remote alcoholism quit many years ago. We'll obtain OSCAR triglyceride in IgG subclass 1-4 for evaluation of autoimmune workup. Stable for discharge from a GI standpoint. Return to office in 3-4 weeks for reevaluation possible discussion of outpatient endoscopy if clinically needed. Assessment and plan a care discussed with Dr. Dill
[2018-12-29 13:58] LABS: IgG Subclass 3 23.2 mg/dL (11.0-85.0); IgG Subclass 4 12.4 mg/dL (3.0-175.0)
--- NOTE | 2018-12-30 12:04 | DS ---
DISCHARGE SUMMARY DATE OF ADMISSION: 12/26/2018 DATE OF DISCHARGE: 12/28/2018 FINAL DIAGNOSES: 1. Acute epigastric pain could be gastritis. 2. A 1 cm hypodense lesion in the body of the pancreas, being followed as an outpatient. 3. Paroxysmal atrial flutter, currently in sinus rhythm. 4. Chronic dysphagia. 5. PEG tube. 6. Gastroesophageal reflux disease. 7. Multiple myeloma. 8. Chronic obstructive pulmonary disease in an ex-smoker. 9. 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 10.Chronic Phillips's esophagus. 11.Chronic hypoxia on home oxygen 2 L. 12.Abdominal aortic aneurysm. HOSPITAL COURSE: This patient presented with epigastric pain. CT scan of the pelvis did show a small cyst in the pancreas. This was followed by a pancreatic MRI, which was found to be a thin-walled small nonenhancing cystic lesion consistent with a pseudocyst. This is not felt to be responsible for patient's symptoms. Patient's symptoms are improved. Care was discussed with the patient and . CONSULTATION: Dr. Nuha Dill from GI. PHYSICAL EXAMINATION: On examination, temperature 97.9, pulse 74, respiration 18, blood pressure 128/84, pulse ox 99% on 2 L. LUNGS: Decreased breath sounds. ABDOMEN: Soft, nontender. PEG tube in place. The patient does bolus feeding. DISCHARGE MEDICATIONS: 1. Omeprazole 20 mg b.i.d. 2. Mucinex 600 mg b.i.d. p.r.n. 3. Breo Ellipta 200/25 one puff daily. 4. Ventolin HFA one to two puffs q.6 p.r.n. 5. DuoNeb q.i.d. p.r.n. 6. Eliquis 2.5 mg b.i.d. 7. Combivent 1 puff q.i.d. p.r.n. 8. Lopressor 12.5 p.o. daily. 9. Midodrine 5 mg through PEG tube b.i.d. 10.Ambien 5 mg q.h.s. p.r.n. Follow up with Dr. Kevin Dill on 02/14/2019. Follow up with Dr. Harish Matthews on 01/07/2019. MMODL / IJN: [id number] /
== END 2018-12-28 13:00 | disposition home or self-care (01) ==
LOC: EC 01:48 → 3NMEDONC 06:08
PROVIDERS: ADMIT Hospitalist; ATTEND Hospitalist
DX: R10.13 Epigastric pain (principal); Z93.1 Gastrostomy status; K21.9 Gastro-esophageal reflux disease without esophagitis; C90.00 Multiple myeloma not having achieved remission; J38.02 Paralysis of vocal cords and larynx, bilateral; I10 Essential (primary) hypertension; I48.91 Unspecified atrial fibrillation; I48.92 Unspecified atrial flutter; I71.4 Abdominal aortic aneurysm, without rupture; J44.9 Chronic obstructive pulmonary disease, unspecified; K86.9 Disease of pancreas, unspecified; K22.70 Barrett's esophagus without dysplasia; M06.9 Rheumatoid arthritis, unspecified; R13.12 Dysphagia, oropharyngeal phase; R09.02 Hypoxemia; Z99.81 Dependence on supplemental oxygen; Z79.01 Long term (current) use of anticoagulants; Z86.73 Personal history of transient ischemic attack (TIA), and cerebral infarction without residual deficits; Z98.42 Cataract extraction status, left eye; Z98.41 Cataract extraction status, right eye; Z96.1 Presence of intraocular lens; Z87.891 Personal history of nicotine dependence; Z87.01 Personal history of pneumonia (recurrent); Z80.0 Family history of malignant neoplasm of digestive organs; Z80.1 Family history of malignant neoplasm of trachea, bronchus and lung; Z80.7 Family history of other malignant neoplasms of lymphoid, hematopoietic and related tissues; Z82.49 Family history of ischemic heart disease and other diseases of the circulatory system; Z82.5 Family history of asthma and other chronic lower respiratory diseases
CPT/HCPCS: 96376 ×3; 96361 ×2; 96374; 96375; 99285; 36415; 94640 ×5; 94760; 93005; 80053; 82150; 83605; 83690; 84478; 84484; 85025; 81003; 82787; 86038; 74018; 74177; 74183; G0378 ×3; J2270 ×2; J2405; C9113 ×3; A9585; Q9967

== ENCOUNTER 2019-02-02 01:19 | Emergency (ER) | payer MEDICARE ==
[2019-02-02] MEDS ORDERED: MORPHINE SULFATE 4 MG/ML SYRINGE IM STA (01:39)
[2019-02-02 01:40] VITALS: BP 130/95; PULSE 69; RESP 20; TEMP 97.3
--- NOTE | 2019-02-02 02:14 | XR ---
EXAM: XR Pelvis Complete, 3 or More Views CLINICAL HISTORY: ITS.REASON XR Reason: Pain TECHNIQUE: Frontal and lateral or oblique views of the pelvis. COMPARISON: No relevant prior studies available. FINDINGS: Bones/joints: No acute fracture. No dislocation. Mild spurring of the acetabulum bilaterally. Mild left hip joint space loss. Soft tissues: Unremarkable. IMPRESSION: No acute findings. Mild left hip osteoarthrosis.
--- NOTE | 2019-02-02 03:03 | CT ---
EXAM: CT Pelvis Without Intravenous Contrast CLINICAL HISTORY: ITS.REASON CT Reason: Fall, left hip pain TECHNIQUE: Axial computed tomography images of the pelvis without intravenous contrast. CTDI is 7 mGy and DLP is 305 mGy-cm. This CT exam was performed using one or more of the following dose reduction techniques: automated exposure control, adjustment of the mA and/or kV according to patient size, and/or use of iterative reconstruction technique. COMPARISON: Hip radiograph 02/02/19 FINDINGS: Mildly displaced comminuted fracture through the left iliac crest extending to the anterior and posterior acetabulum. Proximal femur is intact. Colonic diverticulosis. Enlarged prostate gland. No hematoma. IMPRESSION: 1. Left iliac crest fracture extending to the anterior and posterior acetabulum. No dislocation of the hip joint. 2. Colonic diverticulosis. 3. Prostatic megaly.
--- NOTE | 2019-02-02 04:26 | ED ---
Fall HPI - General Chief Complaint: Fall Stated Complaint: fall Time Seen by Provider: 02/02/19 01:34 Source: patient Mode of arrival: EMS - History of Present Illness Initial Comments: This patient is a 74-year-old man who states that he had a ground-level fall at home, landing on the floor on his left hip. Patient states that he felt a pop. Patient's was then not able to help him get back up. They phoned EMS who brings him for evaluation. He indicates the left hip area. He states that there is pain anytime he tries to move the left leg. He denies numbness. The patient is denying other injuries. No head or neck pain. No chest, back, or abdominal pain. No injury to the other extremities. MD Complaint: fall -: hour(s) Fall From: standing When Fall Occurred: [address] Fall Occurred: home Loss of Consciousness: none Prolonged Down Time?: no Symptoms Prior to Fall: none Location - Extremities: Left: Leg Severity: severe Quality: sharp Context: history of frequent falls Associated Symptoms: denies - Related Data Home Medications Medication Instructions Recorded Confirmed Omeprazole 20 mg PEG/G-TUBE BID 07/31/14 12/26/18 guaiFENesin [Mucinex] 600 mg PEG/G-TUBE BID PRN 04/23/18 12/26/18 Fluticasone/Vilanterol [Breo 1 puff INHALATION RT-DAILY 10/24/18 12/26/18 Ellipta 200-25 Mcg INH] Albuterol Inhaler [Ventolin Hfa 1 - 2 puff INHALATION RT-Q6H PRN 11/06/18 12/26/18 Inhaler] Ipratropium-Albuterol Nebulize 3 ml INHALATION RT-QID PRN 11/06/18 12/26/18 [Duoneb 0.5 mg-3 mg/3 ml Soln] Apixaban [Eliquis] 2.5 mg PEG/G-TUBE BID 12/26/18 12/26/18 Ipratropium/Albuterol Sulfate 1 puff INHALATION RT-QID PRN 12/26/18 12/26/18 [Combivent Respimat Inhaler] Metoprolol Tartrate [Lopressor] 12.5 mg PEG/G-TUBE DAILY 12/26/18 12/26/18 Midodrine HCl 5 mg PEG/G-TUBE BID 12/26/18 12/26/18 Zolpidem [Ambien] 5 mg PEG/G-TUBE HS PRN 12/26/18 12/26/18 Allergies Allergy/AdvReac Type Severity Reaction Status Date / Time Penicillins Allergy Itching Verified 12/26/18 07:05 piperacillin [From Zosyn] Allergy Itching Verified 12/26/18 07:05 Sulfa (Sulfonamide Allergy Rash/Hives Verified 12/26/18 07:05 Antibiotics) tazobactam [From Zosyn] Allergy Itching Verified 12/26/18 07:05 Review of Systems ROS Statement: Those systems with pertinent positive or pertinent negative responses have been documented in the HPI. ROS Other: All systems not noted in ROS Statement are negative. Constitutional: Denies: fever Respiratory: Denies: cough, dyspnea Cardiovascular: Denies: chest pain, palpitations, syncope Gastrointestinal: Denies: abdominal pain, vomiting, diarrhea Genitourinary: Denies: dysuria, hematuria Musculoskeletal: Reports: joint swelling, arthralgia. 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 Other hx: aspiration pneumonias-has peg tube, Phillips's esophagus, gaping esophagus, possible CVA, multiple myeloma diagnosed 3 yrs ago- no major problems with this until recently-some abnormal labs, recent admissions for aspiration pneumonia (pseudomonas) / Afib with RVR and admitted 11/06/18 with hypotension 2ndary to medications/possible upper GI bleed, home oxygen at 2L/NC and lately been wearing ATC, abdominal aortic aneurysm. History of Any Multi-Drug Resistant Organisms: None Reported Past Surgical History: Appendectomy, Hernia Repair, Orthopedic Surgery, Tonsillectomy Additional Past Surgical History / Comment(s): Field implant in throat, peg tube, EGDs, colonoscopy, R inguinal hernia, L foot bunionectomy, hemorrhoidectomy, L ring trigger finger release, nasal reconstruction, vocal cord surgery, cats/lens implants. Additional Past Anesthesia/Blood Transfusion Reaction / Comment(s): PARALYZED VOCAL CHORDS. Pt has received blood in past without reaction. Past Psychological History: Anxiety Smoking Status: Former smoker - Past Family History Sister(s) Additional Family Medical History / Comment(s): passed colon CA Brother(s) Additional Family Medical History / Comment(s): sarcidosis Mother Family Medical History: COPD Additional Family Medical History / Comment(s): lung CA Son(s) Family Medical History: Hypertension Additional Family Medical History / Comment(s): lymphoma, sarcoidosis Father Family Medical History: No Reported History Additional Family Medical History / Comment(s): Father was healthy General Exam Limitations: no limitations General appearance: alert, in no apparent distress Head exam: Present: atraumatic, normocephalic Eye exam: Present: normal appearance. Absent: scleral icterus, conjunctival injection ENT exam: Present: mucous membranes dry Neck exam: Present: normal inspection, full ROM. Absent: tenderness Respiratory exam: Present: normal lung sounds bilaterally. Absent: respiratory distress, wheezes, rales, rhonchi, stridor, chest wall tenderness Cardiovascular Exam: Present: regular rate, normal rhythm, normal heart sounds. Absent: systolic murmur, diastolic murmur, rubs, gallop GI/Abdominal exam: Present: soft, other (PEG tube present). Absent: distended, tenderness, guarding, rebound, rigid, mass Extremities exam: Present: normal inspection, tenderness, normal capillary refill, other (Patient has pain at the left hip with rotation of the hip.). Absent: full ROM (Refuses range of motion at the hip), pedal edema, calf tenderness Back exam: Present: normal inspection. Absent: CVA tenderness (R), CVA tenderness (L), vertebral tenderness Neurological exam: Present: alert. Absent: motor sensory deficit Skin exam: Present: warm, dry, intact, normal color. Absent: rash Course Vital Signs 02/02/19 01:33 Temperature 97.3 F L Pulse Rate 69 Respiratory 20 Rate Blood Pressure 130/95 O2 Sat by Pulse 90 L Oximetry Medical Decision Making - Medical Decision Making This patient is a 74-year-old man with ground-level fall resulting in left iliac crest fracture extending down to the acetabulum. Discussed case with Dr. Ferro who states the patient will require higher level of care. Case discussed with the patient and family and they request [facility]. Dr. Petty at [facility] except transfer. - Lab Data Result diagrams: 02/02/19 04:08 02/02/19 04:08 Lab Results 02/02/19 02/02/19 Range/Units 04:08 04:08 WBC 7.1 (3.8-10.6) k/uL RBC 3.38 L (4.30-5.90) m/uL Hgb 11.2 L (13.0-17.5) gm/dL Hct 34.0 L (39.0-53.0) % MCV 100.6 H (80.0-100.0) fL MCH 33.0 (25.0-35.0) pg MCHC 32.8 (31.0-37.0) g/dL RDW 14.2 (11.5-15.5) % Plt Count 193 (150-450) k/uL Neutrophils % 86 % Lymphocytes % 9 % Monocytes % 3 % Eosinophils % 1 % Basophils % 0 % Neutrophils # 6.1 (1.3-7.7) k/uL Lymphocytes # 0.6 L (1.0-4.8) k/uL Monocytes # 0.2 (0-1.0) k/uL Eosinophils # 0.1 (0-0.7) k/uL Basophils # 0.0 (0-0.2) k/uL Macrocytosis Slight Sodium 135 L (137-145) mmol/L Potassium 4.8 (3.5-5.1) mmol/L Chloride 94 L (98-107) mmol/L Carbon Dioxide 34 H (22-30) mmol/L Anion Gap 7 mmol/L BUN 38 H (9-20) mg/dL Creatinine 0.69 (0.66-1.25) mg/dL Est GFR (CKD-EPI)AfAm >90 (>60 ml/min/1.73 sqM) Est GFR (CKD-EPI)NonAf >90 (>60 ml/min/1.73 sqM) Glucose 81 (74-99) mg/dL Calcium 9.2 (8.4-10.2) mg/dL Total Bilirubin 0.8 (0.2-1.3) mg/dL AST 65 H (17-59) U/L ALT 55 (21-72) U/L Alkaline Phosphatase 151 H (38-126) U/L Total Protein 7.6 (6.3-8.2) g/dL Albumin 4.1 (3.5-5.0) g/dL Disposition Clinical Impression: Fall, Acetabulum fracture, left Disposition: OTHER INSTITUTION NOT DEFINED Condition: Serious Is patient prescribed a controlled substance at d/c from ED?: No Referrals: Harish Alvarado DO [Primary Care Provider] - 1-2 days - Out of Hospital Transfer - Req. Specs Out of Hospital Transfer - Requested Specifics: Other Emergency Center
[2019-02-02 04:37] LABS: Basophils % (A) 0 %; Eosinophils # (A) 0.1 k/uL (0-0.7); Eosinophils % (A) 1 %; HGB 11.2 gm/dL (13.0-17.5); Lymphocytes # (A) 0.6 k/uL (1.0-4.8); Lymphocytes % (A) 9 %; MCHC 32.8 g/dL (31.0-37.0); MCV 100.6 fL (80.0-100.0); Macrocytosis Slight; Monocytes # (A) 0.2 k/uL (0-1.0); Monocytes % (A) 3 %; Neutrophils # (A) 6.1 k/uL (1.3-7.7); Neutrophils % (A) 86 %; Platelet Count 193 k/uL (150-450); RBC 3.38 m/uL (4.30-5.90); RDW 14.2 % (11.5-15.5); WBC 7.1 k/uL (3.8-10.6)
[2019-02-02 04:47] LABS: ALT 55 U/L (21-72); AST 65 U/L (17-59); African American GFR (CKD) >90 (>60 ml/min/1.73 sqM); Albumin 4.1 g/dL (3.5-5.0); Alkaline Phosphatase 151 U/L (38-126); Anion Gap 7 mmol/L; Blood Urea Nitrogen 38 mg/dL (9-20); Calcium 9.2 mg/dL (8.4-10.2); Carbon Dioxide 34 mmol/L (22-30); Chloride 94 mmol/L (98-107); Glucose 81 mg/dL (74-99); INR 0.9 (<1.2); Partial Thromboplastin Time 23.2 sec (22.0-30.0); Potassium 4.8 mmol/L (3.5-5.1); Prothrombin Time 9.7 sec (9.0-12.0); Sodium 135 mmol/L (137-145); Total Bilirubin 0.8 mg/dL (0.2-1.3); Total Protein 7.6 g/dL (6.3-8.2)
[2019-02-02] MEDS ORDERED: MORPHINE SULFATE 4 MG/ML SYRINGE IV STA (04:54)
== END 2019-02-02 05:20 | disposition other institution (70) ==
LOC: EC 01:19
DX: S32.402A Unspecified fracture of left acetabulum, initial encounter for closed fracture (principal); I48.91 Unspecified atrial fibrillation; J44.9 Chronic obstructive pulmonary disease, unspecified; Z79.01 Long term (current) use of anticoagulants; Z79.51 Long term (current) use of inhaled steroids; Z79.899 Other long term (current) drug therapy; Z88.0 Allergy status to penicillin; Z88.1 Allergy status to other antibiotic agents; Z88.2 Allergy status to sulfonamides; Z87.891 Personal history of nicotine dependence; Z86.73 Personal history of transient ischemic attack (TIA), and cerebral infarction without residual deficits; Z85.79 Personal history of other malignant neoplasms of lymphoid, hematopoietic and related tissues; W18.30XA Fall on same level, unspecified, initial encounter; Y92.009 Unspecified place in unspecified non-institutional (private) residence as the place of occurrence of the external cause
CPT/HCPCS: 36415; 80053; 85025; 85610; 85730; 73502; 72192; 99284; 96374; 96372; J2270

== ENCOUNTER 2019-03-16 09:04 | Day surgery (SDC) | payer MEDICARE ==
[2019-03-14 15:12] VITALS: BMI 22.6
[~2019-03-16 09:04] MED LIST: LACTATED RINGERS 1,000 ML IV SCH
[2019-03-16 09:58] VITALS: TEMP 98.1
[2019-03-16] MEDS ORDERED: LIDOCAINE 1% 20 ML VIAL (10MG/ML) FOR IV START INTRADERMA ONE (10:05)
[2019-03-16] MEDS ORDERED: PROPOFOL 10 MG/ML 20 ML VIAL IV ONE (10:35)
--- NOTE | 2019-03-16 10:51 | P.PCN ---
Date of Procedure: 03/16/19 Procedure(s) Performed: Brief history: Patient is a 74-year-old -year-old pleasant white male scheduled for an EGD with PEG tube replacement today. He has history of oropharyngeal dysphagia secondary to neurological disorder and had a PEG tube placed in May 2017. He was admitted to the hospital in November of this year with black tarry stools of 2 days' duration. Eliquis was on hold and the bleeding subsided. Lately has been having leakage from the PEG site and because of the malfunction he scheduled for an upper endoscopy with a PEG tube replacement today Procedure performed: EGD with PEG tube replacement Preoperative diagnosis: Melena and PEG tube dysfunction IV sedation by anesthesia Procedure: After informed consent was obtained with the patient as well as the family the patient was brought into the endoscopy unit. IV conscious sedation was administered by anesthesia under continuous monitoring. The Olympus GF 160 video endoscope was inserted into the mouth and esophagus intubated without any difficulty and was gradually advanced to the stomach and duodenum. The bulb and second part of the duodenum was visualized which appeared normal. The scope at this time was withdrawn to the stomach adequately insufflated with air. The previously placed PEG tube was gently withdrawn using traction from anterior abdominal wall. Guidewire was passed through the gastrostomy site into the stomach cavity which was held by the snare that was passed through the scope. The guidewire along with the scope was gently withdrawn from the stomach esophagus out of the mouth. A 20-[place] [employer] PEG tube was passed over the guidewire and was gently advanced into the mouth and esophagus and stomach. With gentle traction the guidewire along with the PEG tube was pulled from the anterior abdominal wall until the internal bumper appeared to be in secure position. Repeat EGD was performed and the esophagus intubated without any difficulty and was advanced into the stomach. The internal bumper appeared to be in secure position. The visualized portions of the antrum body cardia and fundus of the stomach appeared normal. The esophagus was carefully examined as the scope was gradually being withdrawn which appeared normal. At this time external bumper was placed on the PEG tube closer to the anterior abdominal wall at 3 cm channing. The patient tolerated the procedure well. Impression: Successful 20-[place] [employer] PEG tube replacement as described above. Recommendations: Findings of this examination were discussed with the patient's family. The patient will be started on tube feeds today. Eliquis can be resumed today.
[2019-03-16] MEDS: fentaNYL (PF) 50 MCG/ML 2 ML AMP IVP ONE ×2 (11:15→11:22)
[2019-03-16 11:58] VITALS: BP 152/81; PULSE 85; RESP 18
== END 2019-03-16 11:58 | disposition home or self-care (01) ==
LOC: ORWHC2ENDO 09:04
PROVIDERS: ATTEND Internal Medicine Gastroenterology
DX: K94.23 Gastrostomy malfunction (principal); R13.12 Dysphagia, oropharyngeal phase; I48.91 Unspecified atrial fibrillation; J38.00 Paralysis of vocal cords and larynx, unspecified; M19.90 Unspecified osteoarthritis, unspecified site; G62.9 Polyneuropathy, unspecified; Z86.73 Personal history of transient ischemic attack (TIA), and cerebral infarction without residual deficits; Z88.0 Allergy status to penicillin; Z99.81 Dependence on supplemental oxygen; Z79.899 Other long term (current) drug therapy; Z88.2 Allergy status to sulfonamides; Z88.8 Allergy status to other drugs, medicaments and biological substances
CPT/HCPCS: 43246; J3010; J2704; B4087

== ENCOUNTER 2019-03-24 12:11 | Emergency (ER) | payer MEDICARE ==
[2019-03-24 12:40] VITALS: BP 130/81; PULSE 87; RESP 18; TEMP 97.9
--- NOTE | 2019-03-24 13:25 | ED ---
Recheck HPI - General Chief Complaint: Recheck/Abnormal Lab/Rx Stated Complaint: PEG tube came out Time Seen by Provider: 03/24/19 12:49 Source: patient Mode of arrival: ambulatory Limitations: no limitations - History of Present Illness Initial Comments: 74yo male presenting today for chief complaint of "PEG tube came out". Patient has history of neuromuscular disorder. Patient has a PEG tube in place. Patient states it was recently changed 1 week prior by his sterilization tech Dr. Culver. Patient states if allow he is unsure if it was pulled. Patient denies any bleeding at the site he is on blood thinners. Patient denies any significant abdominal pain. Patient states this happened just prior to arrival. Patient has his 20-[place] PEG tube with him that was placed endoscopically a week ago. Patient remaining review systems negative. Upon arrival he appears well no signs of acute distress. - Related Data Home Medications Medication Instructions Recorded Confirmed Omeprazole 20 mg PEG/G-TUBE BID 07/31/14 03/16/19 Fluticasone/Vilanterol [Breo 1 puff INHALATION RT-DAILY 10/24/18 03/16/19 Ellipta 200-25 Mcg INH] Albuterol Inhaler [Ventolin Hfa 1 - 2 puff INHALATION RT-Q6H PRN 11/06/18 03/16/19 Inhaler] Ipratropium-Albuterol Nebulize 3 ml INHALATION RT-QID PRN 11/06/18 03/16/19 [Duoneb 0.5 mg-3 mg/3 ml Soln] Apixaban [Eliquis] 2.5 mg PEG/G-TUBE BID 12/26/18 03/16/19 Metoprolol Tartrate [Lopressor] 12.5 mg PEG/G-TUBE DAILY 12/26/18 03/16/19 Acetaminophen Tab [Tylenol Tab] 500 mg PO Q6H PRN 03/14/19 03/16/19 Loratadine-Pseudoeph 10-240 mg 1 each PO DAILY 03/14/19 03/16/19 [Claritin-D 24 Hr] Mucinex (Unknown Dose) 1 dose PO BID PRN 03/14/19 03/16/19 Allergies Allergy/AdvReac Type Severity Reaction Status Date / Time Penicillins Allergy Itching Verified 03/24/19 12:40 piperacillin [From Zosyn] Allergy Itching Verified 03/24/19 12:40 Sulfa (Sulfonamide Allergy Rash/Hives Verified 03/24/19 12:40 Antibiotics) tazobactam [From Zosyn] Allergy Itching Verified 03/24/19 12:40 Review of Systems ROS Statement: Those systems with pertinent positive or pertinent negative responses have been documented in the HPI. ROS Other: All systems not noted in ROS Statement are negative. 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 states fluid filled area on his elbow . History of Any Multi-Drug Resistant Organisms: None Reported Past Surgical History: Appendectomy, Hernia Repair, Orthopedic Surgery, Tonsillectomy Additional Past Surgical History / Comment(s): Field implant in throat, peg tube, EGDs, colonoscopy, R inguinal hernia, L foot bunionectomy, hemorrhoidectomy, L ring trigger finger release, nasal reconstruction, vocal cord surgery, cataracts/lens implants. fx left pelvis Past Anesthesia/Blood Transfusion Reactions: No Reported Reaction Additional Past Anesthesia/Blood Transfusion Reaction / Comment(s): PARALYZED VOCAL CHORDS. Pt has received blood in past without reaction. Past Psychological History: No Psychological Hx Reported Smoking Status: Former smoker Past Alcohol Use History: None Reported Past Drug Use History: None Reported - Past Family History Sister(s) Additional Family Medical History / Comment(s): passed colon CA Brother(s) Additional Family Medical History / Comment(s): sarcidosis Mother Family Medical History: COPD Additional Family Medical History / Comment(s): lung CA Son(s) Family Medical History: Hypertension Additional Family Medical History / Comment(s): lymphoma, sarcoidosis Father Family Medical History: No Reported History Additional Family Medical History / Comment(s): Father was healthy General Exam - General Exam Comments Initial Comments: General: The patient is awake and alert, in no distress, and does not appear acutely ill. Eye: Pupils are equal, round and reactive to light, extra-ocular movements are intact. No nystagmus. There is normal conjunctiva bilaterally. No signs of icterus. Cardiovascular: There is a regular rate and rhythm. No murmur, rub or gallop is appreciated. Respiratory: Lungs are clear to auscultation, respirations are non-labored, breath sounds are equal. No wheezes, stridor, rales, or rhonchi. Gastrointestinal: Soft, non-distended, non-tender abdomen without masses or organomegaly noted. There is no rebound or guarding present. Incision in place, no bleeding left upper abdomen. Musculoskeletal: Normal ROM, no tenderness. Strength 5/5. Sensation intact. Pulses equal bilaterally 2+. Neurological: A&O x 3. Skin: Skin is warm and dry and no rashes or lesions are noted. Psychiatric: Cooperative, appropriate mood & affect, normal judgment. Limitations: no limitations Course Vital Signs 03/24/19 12:36 Temperature 97.9 F Pulse Rate 87 Respiratory 18 Rate Blood Pressure 130/81 O2 Sat by Pulse 97 Oximetry Medical Decision Making - Medical Decision Making 74 yo male presenting for pain tube falling out. PEG tube was replaced with a [place] tube. Patient tolerate procedure well minimal bleeding. Place was confirmed with barium KUB. Appropriate placement. Flushed without difficulty. Dr. Dill was consulted as patient was unhappy with the type of 20-[place] it was patient preferred the endoscopic version. Dr. Dill states that she will not be replacing it and will discuss this with patient office and patient is to leave the emergency department for evaluation and Dr. Dill's office. Patient is agreeable this care plan discharge at this time. I did discuss case between 5 and was agreeable care plan and discharge. Disposition Clinical Impression: PEG tube malfunction Disposition: HOME SELF-CARE Condition: Good Instructions (If sedation given, give patient instructions): PEG Tube Insertion (DC) Additional Instructions: Please use medication as discussed. Please go directly to Dr. Blair office. Please return to emergency room if the symptoms increase or worsen or for any other concerns. Is patient prescribed a controlled substance at d/c from ED?: No Referrals: Alvarado,Harish, DO [Primary Care Provider] - 1-2 days Time of Disposition: 14:35
--- NOTE | 2019-03-24 14:11 | XR ---
EXAMINATION TYPE: XR KUB DATE OF EXAM: 03/24/2019 2:03 PM CLINICAL HISTORY: PEG tube placement. TECHNIQUE: Single supine KUB image of the abdomen is obtained after injecting 2 ounces of Isovue-370. COMPARISON: Abdominal x-ray and CT December 26, 2018.. FINDINGS: Successful contrast opacification of stomach and first portion of duodenum with balloon ric cement there are body antral junction. Overall nonobstructive bowel gas pattern. Multilevel spurring and disc space narrowing throughout the lumbar spine most prominent at L2-L3 level. Elevated right he midiaphragm redemonstrated. IMPRESSION: As above.
== END 2019-03-24 14:56 | disposition home or self-care (01) ==
LOC: EC 12:11
DX: K94.23 Gastrostomy malfunction (principal); K21.9 Gastro-esophageal reflux disease without esophagitis; J38.00 Paralysis of vocal cords and larynx, unspecified; J44.9 Chronic obstructive pulmonary disease, unspecified; I48.91 Unspecified atrial fibrillation; N40.0 Benign prostatic hyperplasia without lower urinary tract symptoms; Z79.51 Long term (current) use of inhaled steroids; Z79.01 Long term (current) use of anticoagulants; Z79.899 Other long term (current) drug therapy; Z88.0 Allergy status to penicillin; Z88.1 Allergy status to other antibiotic agents; Z88.2 Allergy status to sulfonamides; Z87.19 Personal history of other diseases of the digestive system; Z90.89 Acquired absence of other organs; Z96.89 Presence of other specified functional implants; Z86.73 Personal history of transient ischemic attack (TIA), and cerebral infarction without residual deficits; Z86.69 Personal history of other diseases of the nervous system and sense organs; Z87.891 Personal history of nicotine dependence; Z85.79 Personal history of other malignant neoplasms of lymphoid, hematopoietic and related tissues
CPT/HCPCS: 99282; 74018; Q9967

== ENCOUNTER → 2019-06-02 | Outpatient (CLI) | payer MEDICARE ==
[2019-06-02 15:48] LABS: African American GFR (CKD) >90 (>60 ml/min/1.73 sqM); Blood Urea Nitrogen 32 mg/dL (9-20)
--- NOTE | 2019-06-02 16:33 | CT ---
EXAMINATION TYPE: CT abdomen w con DATE OF EXAM: 06/02/2019 COMPARISON: CT abdomen and pelvis December 26, 2018 HISTORY: Pancreatic cyst. History of multiple myeloma. CT DLP: 428.7 mGycm, Automated Exposure Control for Dose Reduction was Utilized. CONTRAST: CT scan of the abdomen is performed with oral and with IV Contrast, patient injected with 100ml mL of Isovue 300. FINDINGS: LUNG BASES: There is posterior right basilar consolidation and/or atelectasis redemonstrated. Elevate d right hemidiaphragm again seen. Mass effect on the right atrium redemonstrated. LIVER/GB: Stable mild extra hepatic biliary dilatation up to 9 mm in margaux hepatis. Contracted gallbl adder. PANCREAS: Pancreas remains normal in size. Cystic or low dense lesion proximal to mid body axial imag e 35 measures 4 mm current study diminished in size from prior study image 39. No new suspicious panc reatic lesions are present. SPLEEN: No significant abnormality is seen. ADRENALS: No significant abnormality is seen. KIDNEYS: No significant abnormality is seen. BOWEL: Stable satisfactory position PEG tube. Oral contrast does not reach colonic level making evalu ation slightly suboptimal. Left-sided colonic diverticula. No CT evidence for acute diverticulitis. N o suspicious small or large bowel dilatation. LYMPH NODES: No greater than 1cm abdominal lymph nodes are appreciated. OSSEOUS STRUCTURES: Multilevel spurring and disc space narrowing in the spine most prominent disc spa ce narrowing L2-L3 and L4-L5 levels. OTHER: No significant additional abnormality is seen. IMPRESSION: 1. Diminishing size to central pancreatic lesion suggesting resolving pseudocyst .
== END | disposition home or self-care (01) ==
LOC: RADCTMAIN 15:06
PROVIDERS: ATTEND Internal Medicine Hematology & Oncology
DX: K86.89 Other specified diseases of pancreas (principal); Z88.6 Allergy status to analgesic agent; Z88.1 Allergy status to other antibiotic agents; Z88.2 Allergy status to sulfonamides
CPT/HCPCS: 82565; 84520; 74160; 36415; Q9967 ×2

== ENCOUNTER 2020-02-16 23:23 | Emergency (ER) | payer MEDICARE ==
[2020-02-16 23:31] VITALS: BP 121/81; PULSE 77; RESP 18
[2020-02-17] MEDS ORDERED: BACITRACIN OINT 1 EACH PACKET TOPICAL ONE (00:59)
--- NOTE | 2020-02-17 01:07 | ED ---
Skin/Abscess/FB HPI - General Chief complaint: Skin/Abscess/Foreign Body Stated complaint: Feeding tube came out Time Seen by Provider: 02/16/20 23:37 Source: patient Mode of arrival: ambulatory Limitations: no limitations - History of Present Illness Initial comments: 75 year-old male patient is to the emergency department today for evaluation after his PEG tube became displaced. Patient states that the PEG tube fell out. He denies discomfort to the area. Denies any abdominal pain, nausea, or vomiting. 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 He has had the PEG tube for three years. Denies any other concerns or symptoms. Patient denies any recent rash, fever, chills, cough, shortness of breath, chest pain, diarrhea, constipation, back pain, numbness, tingling, dizziness, weakness, hematuria, dysuria, urinary urgency, urinary frequency, headache, visual changes, or any other complaints. - Related Data Home Medications Medication Instructions Recorded Confirmed Omeprazole 20 mg PEG/G-TUBE BID 07/31/14 03/16/19 Fluticasone/Vilanterol [Breo 1 puff INHALATION RT-DAILY 10/24/18 03/16/19 Ellipta 200-25 Mcg INH] Albuterol Inhaler (Mhu) [Ventolin 1 - 2 puff INHALATION RT-Q6H PRN 11/06/18 03/16/19 Hfa Inhaler (Mhu)] Ipratropium-Albuterol Nebulize 3 ml INHALATION RT-QID PRN 11/06/18 03/16/19 [Duoneb 0.5 mg-3 mg/3 ml Soln] Apixaban [Eliquis] 2.5 mg PEG/G-TUBE BID 12/26/18 03/16/19 Metoprolol Tartrate [Lopressor] 12.5 mg PEG/G-TUBE DAILY 12/26/18 03/16/19 Acetaminophen Tab [Tylenol Tab] 500 mg PO Q6H PRN 03/14/19 03/16/19 Loratadine-Pseudoeph 10-240 mg 1 each PO DAILY 03/14/19 03/16/19 [Claritin-D 24 Hr] Mucinex (Unknown Dose) 1 dose PO BID PRN 03/14/19 03/16/19 Allergies Allergy/AdvReac Type Severity Reaction Status Date / Time Penicillins Allergy Itching Verified 02/16/20 23:31 piperacillin [From Zosyn] Allergy Itching Verified 02/16/20 23:31 Sulfa (Sulfonamide Allergy Rash/Hives Verified 02/16/20 23:31 Antibiotics) tazobactam [From Zosyn] Allergy Itching Verified 02/16/20 23:31 Review of Systems ROS Statement: Those systems with pertinent positive or pertinent negative responses have been documented in the HPI. ROS Other: All systems not noted in ROS Statement are negative. 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 states fluid filled area on his elbow . History of Any Multi-Drug Resistant Organisms: None Reported Past Surgical History: Appendectomy, Hernia Repair, Orthopedic Surgery, Tonsillectomy Additional Past Surgical History / Comment(s): Field implant in throat, peg tube, EGDs, colonoscopy, R inguinal hernia, L foot bunionectomy, he morrhoidectomy, L ring trigger finger release, nasal reconstruction, vocal cord surgery, cataracts/lens implants. fx left pelvis Past Anesthesia/Blood Transfusion Reactions: No Reported Reaction Additional Past Anesthesia/Blood Transfusion Reaction / Comment(s): PARALYZED VOCAL CHORDS. Pt has received blood in past without reaction. Past Psychological History: No Psychological Hx Reported Past Alcohol Use History: None Reported Past Drug Use History: None Reported - Past Family History Sister(s) Additional Family Medical History / Comment(s): passed colon CA Brother(s) Additional Family Medical History / Comment(s): sarcidosis Mother Family Medical History: COPD Additional Family Medical History / Comment(s): lung CA Son(s) Family Medical History: Hypertension Additional Family Medical History / Comment(s): lymphoma, sarcoidosis Father Family Medical History: No Reported History Additional Family Medical History / Comment(s): Father was healthy General Exam Limitations: no limitations General appearance: alert, in no apparent distress, other (Physical well- developed, well-nourished elderly male patient in no acute distress. Vital signs upon presentation are temperature 98.8F, pulse 77, respirations 18, blood pressure 121/81, pulse ox 96% on room air.) Eye exam: Present: normal appearance, PERRL, EOMI. Absent: scleral icterus, conjunctival injection, periorbital swelling ENT exam: Present: normal exam, normal oropharynx, mucous membranes moist Respiratory exam: Present: normal lung sounds bilaterally. Absent: respiratory distress, wheezes, rales, rhonchi, stridor Cardiovascular Exam: Present: regular rate, normal rhythm, normal heart sounds. Absent: systolic murmur, diastolic murmur, rubs, gallop, clicks GI/Abdominal exam: Present: soft, normal bowel sounds, other (There is PEG to the mid abdomen above the umbilicus. There is mild erythema.). Absent: distended, tenderness, guarding, rebound, rigid Neurological exam: Present: alert, oriented X3, CN II-XII intact Psychiatric exam: Present: normal affect, normal mood Skin exam: Present: warm, dry, intact, normal color. Absent: rash Course Vital Signs 02/16/20 02/17/20 23:28 01:44 Temperature 98.8 F 98.2 F Pulse Rate 77 77 Respiratory 18 18 Rate Blood Pressure 121/81 121/81 O2 Sat by Pulse 96 96 Oximetry Medical Decision Making - Medical Decision Making 75-year-old male patient presents to the emergency department today for evaluation of displaced PEG tube. Patient states that it fell out, examination of the balloon did reveal probable rupture. We did obtain an 18-[place] PEG tube and replaced it. X-ray was obtained and showed good placement. Patient has no discomfort. He'll be discharged follow-up with hisenterologist isn't as possible. Return parameters were discussed in detail. He verbalizes understanding and agrees with this plan. - Radiology Data Radiology results: report reviewed, image reviewed One view x-ray of the abdomen is obtained. Report was reviewed in its entirety. Impression by Dr. Aly shows gastrostomy tube appears in good position Disposition Clinical Impression: Encounter for feeding tube placement Disposition: HOME SELF-CARE Condition: Good Instructions (If sedation given, give patient instructions): PEG Tube Insertion (DC) Additional Instructions: Follow-up with your Neurologist for Further Evaluation As Soon As Possible. Return to the Emergency Department Immediately for Any New, Worsening, or c oncerning Symptoms. Is patient prescribed a controlled substance at d/c from ED?: No Referrals: Harish Alvarado DO [Primary Care Provider] - 1-2 days Time of Disposition: 01:25
--- NOTE | 2020-02-17 01:31 | XR ---
EXAMINATION TYPE: XR abdomen 1V DATE OF EXAM: 02/17/2020 COMPARISON: 03/24/2019 HISTORY: Check tube placement TECHNIQUE: Single view FINDINGS: Contrast was injected into the gastrostomy tube. The contrast appears to flow freely into t he duodenum and proximal jejunum. There is no extravasation. IMPRESSION: Gastrostomy tube appears in good position.
[2020-02-17 01:45] VITALS: TEMP 98.2
== END 2020-02-17 01:45 | disposition home or self-care (01) ==
LOC: EC 23:23
DX: Z43.1 Encounter for attention to gastrostomy (principal); I48.91 Unspecified atrial fibrillation; J44.9 Chronic obstructive pulmonary disease, unspecified; K21.9 Gastro-esophageal reflux disease without esophagitis; Z85.820 Personal history of malignant melanoma of skin; Z86.73 Personal history of transient ischemic attack (TIA), and cerebral infarction without residual deficits; Z79.51 Long term (current) use of inhaled steroids; Z79.01 Long term (current) use of anticoagulants; Z79.899 Other long term (current) drug therapy; Z88.0 Allergy status to penicillin; Z88.1 Allergy status to other antibiotic agents; Z88.2 Allergy status to sulfonamides
CPT/HCPCS: 43762; 74018; 99283

== ENCOUNTER 2020-12-02 14:17 | Emergency (ER) | payer MEDICARE ==
[2020-12-02 14:26] VITALS: RESP 17; TEMP 98.4
--- NOTE | 2020-12-02 14:39 | ED ---
Abdominal Pain HPI - General Chief Complaint: Abdominal Pain Stated Complaint: abd pain Time Seen by Provider: 12/02/20 14:25 Source: patient, EMS Mode of arrival: EMS Limitations: no limitations - History of Present Illness Initial Comments: 75-year-old male extensive past medical history including facial onset sensory motor neuropathy which causes him to have difficulty swallowing and thus he has a left-sided PEG tube, patient states he also has history of atrial fibrillation COPD previous TIAs rheumatoid arthritis and GERD patient states that since 1 AM he has had a tight/aching pain in the LLQ. Pt states it increases with movement and lifting of leg or bend at waist. PT denies nausea, vomiting, diarrhea, fevers, constipation. Patient states his peg tub is flushing without issues> Pt denies known hernia. Patient denies upper abdominal pain, chest pain, dyspnea, dark or bloody stools. Patient appears well nontoxic in no acute distress on ar rival. - Related Data Home Medications Medication Instructions Recorded Confirmed Omeprazole 20 mg PEG/G-TUBE BID 07/31/14 03/16/19 Fluticasone/Vilanterol [Breo 1 puff INHALATION RT-DAILY 10/24/18 03/16/19 Ellipta 200-25 Mcg INH] Albuterol Inhaler (Mhu) [Ventolin 1 - 2 puff INHALATION RT-Q6H PRN 11/06/18 03/16/19 Hfa Inhaler (Mhu)] Ipratropium-Albuterol Nebulize 3 ml INHALATION RT-QID PRN 11/06/18 03/16/19 [Duoneb 0.5 mg-3 mg/3 ml Soln] Apixaban [Eliquis] 2.5 mg PEG/G-TUBE BID 12/26/18 03/16/19 Metoprolol Tartrate [Lopressor] 12.5 mg PEG/G-TUBE DAILY 12/26/18 03/16/19 Acetaminophen Tab [Tylenol Tab] 500 mg PO Q6H PRN 03/14/19 03/16/19 Loratadine-Pseudoeph 10-240 mg 1 each PO DAILY 03/14/19 03/16/19 [Claritin-D 24 Hr] Mucinex (Unknown Dose) 1 dose PO BID PRN 03/14/19 03/16/19 Previous Rx's Medication Instructions Recorded Ciprofloxacin HCl [Cipro] 500 mg PO BID 10 Days #20 tab 12/02/20 metroNIDAZOLE [Flagyl] 500 mg PO Q8HR 10 Days #30 tab 12/02/20 Allergies Allergy/AdvReac Type Severity Reaction Status Date / Time Penicillins Allergy Itching Verified 12/02/20 14:26 piperacillin [From Zosyn] Allergy Itching Verified 12/02/20 14:26 Sulfa (Sulfonamide Allergy Rash/Hives Verified 12/02/20 14:26 Antibiotics) tazobactam [From Zosyn] Allergy Itching Verified 12/02/20 14:26 Review of Systems ROS Statement: Those systems with pertinent positive or pertinent negative responses have been documented in the HPI. ROS Other: All systems not noted in ROS Statement are negative. 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 states fluid filled area on his elbow . History of Any Multi-Drug Resistant Organisms: None Reported Past Surgical History: Appendectomy, Hernia Repair, Orthopedic Surgery, Tonsillectomy Additional Past Surgical History / Comment(s): Field implant in throat, peg tube, EGDs, colonoscopy, R inguinal hernia, L foot bunionectomy, hemorrhoidectomy, L ring trigger finger release, nasal reconstruction, vocal cord surgery, cataracts/lens implants. fx left pelvis, PEG TUBE Past Anesthesia/Blood Transfusion Reactions: No Reported Reaction Additional Past Anesthesia/Blood Transfusion Reaction / Comment(s): PARALYZED VOCAL CHORDS. Pt has received blood in past without reaction. Past Psychological History: No Psychological Hx Reported Smoking Status: Former smoker Past Alcohol Use History: None Reported Past Drug Use History: None Reported - Past Family History Sister(s) Additional Family Medical History / Comment(s): passed colon CA Brother(s) Additional Family Medical History / Comment(s): sarcidosis Mother Family Medical History: COPD Additional Family Medical History / Comment(s): lung CA Son(s) Family Medical History: Hypertension Additional Family Medical History / Comment(s): lymphoma, sarcoidosis Father Family Medical History: No Reported History Additional Family Medical History / Comment(s): Father was healthy General Exam - General Exam Comments Initial Comments: General: The patient is awake and alert, in no distress Eye: +3 mm pupils are equal, round and reactive to light, extra-ocular movements are intact. No nystagmus. There is normal conjunctiva bilaterally. No signs of icterus. Ears, nose, mouth and throat: There are moist mucous membranes and no oral lesions. Neck: The neck is supple, there is no tenderness or JVD. Cardiovascular: There is a regular rate and rhythm. No murmur, rub or gallop is appreciated. Respiratory: Lungs are clear to auscultation, respirations are non-labored, breath sounds are equal. No wheezes, stridor, rales, or rhonchi. Gastrointestinal: Soft, non-distended, pain to palpation of the LLQ, no redness or drainage from peg tube site, no tenderness susrrounding site, abdomen without masses or organomegaly noted. There is no rebound or guarding present. Musculoskeletal: Normal ROM, no tenderness. Strength 5/5. Sensation intact. Pulses equal bilaterally 2+. Neurological: A&O x 3. There are no obvious motor or sensory deficits. C oordination appears grossly intact. Speech is normal. Skin: Skin is warm and dry and no rashes or lesions are noted. Psychiatric: Cooperative, appropriate mood & affect, normal judgment. Limitations: no limitations Course Vital Signs 12/02/20 12/02/20 12/02/20 14:25 15:26 16:26 Temperature 98.4 F Pulse Rate 62 65 Respiratory 17 16 17 Rate Blood Pressure 139/85 O2 Sat by Pulse 97 97 Oximetry 12/02/20 16:58 Temperature 98.4 F Pulse Rate 65 Respiratory 17 Rate Blood Pressure 133/88 O2 Sat by Pulse 97 Oximetry Medical Decision Making - Medical Decision Making Very mild leukocytosis. CT abdomen pelvis diverticulitis. mild no complications noted. pt will be discharged on oral medications (he states he will be able to swallow them). return discussed, f/u discussed pt dischargd appearing well. - Lab Data Result diagrams: 12/02/20 15:00 12/02/20 15:00 Lab Results 12/02/20 12/02/20 12/02/20 Range/Units 15:00 15:00 15:00 WBC 10.7 H (3.8-10.6) k/uL RBC 4.05 L (4.30-5.90) m/uL Hgb 13.7 (13.0-17.5) gm/dL Hct 42.4 (39.0-53.0) % MCV 104.5 H (80.0-100.0) fL MCH 33.8 (25.0-35.0) pg MCHC 32.3 (31.0-37.0) g/dL RDW 13.7 (11.5-15.5) % Plt Count 175 (150-450) k/uL MPV 9.2 Neutrophils % 86 % Lymphocytes % 10 % Monocytes % 2 % Eosinophils % 1 % Basophils % 0 % Neutrophils # 9.2 H (1.3-7.7) k/uL Lymphocytes # 1.0 (1.0-4.8) k/uL Monocytes # 0.2 (0-1.0) k/uL Eosinophils # 0.1 (0-0.7) k/uL Basophils # 0.0 (0-0.2) k/uL Macrocytosis Slight Sodium 136 L (137-145) mmol/L Potassium 4.7 (3.5-5.1) mmol/L Chloride 98 (98-107) mmol/L Carbon Dioxide 32 H (22-30) mmol/L Anion Gap 6 mmol/L BUN 28 H (9-20) mg/dL Creatinine 0.70 (0.66-1.25) mg/dL Est GFR (CKD-EPI)AfAm >90 (>60 ml/min/1.73 sqM) Est GFR (CKD-EPI)NonAf >90 (>60 ml/min/1.73 sqM) Glucose 94 (74-99) mg/dL Plasma Lactic Acid Cristian (0.7-2.0) mmol/L Calcium 9.3 (8.4-10.2) mg/dL Total Bilirubin 0.9 (0.2-1.3) mg/dL AST 37 (17-59) U/L ALT 34 (4-49) U/L Alkaline Phosphatase 193 H (38-126) U/L Total Protein 7.4 (6.3-8.2) g/dL Albumin 3.9 (3.5-5.0) g/dL Amylase 62 (30-110) U/L Lipase 70 (23-300) U/L Urine Color Yellow Urine Appearance Clear (Clear) Urine pH 8.5 H (5.0-8.0) Ur Specific Bowie 1.026 (1.001-1.035) Urine Protein Trace H (Negative) Urine Glucose (UA) Negative (Negative) Urine Ketones Negative (Negative) Urine Blood Negative (Negative) Urine Nitrite Negative (Negative) Urine Bilirubin Negative (Negative) Urine Urobilinogen 3.0 (<2.0) mg/dL Ur Leukocyte Esterase Negative (Negative) 12/02/20 Range/Units 15:00 WBC (3.8-10.6) k/uL RBC (4.30-5.90) m/uL Hgb (13.0-17.5) gm/dL Hct (39.0-53.0) % MCV (80.0-100.0) fL MCH (25.0-35.0) pg MCHC (31.0-37.0) g/dL RDW (11.5-15.5) % Plt Count (150-450) k/uL MPV Neutrophils % % Lymphocytes % % Monocytes % % Eosinophils % % Basophils % % Neutrophils # (1.3-7.7) k/uL Lymphocytes # (1.0-4.8) k/uL Monocytes # (0-1.0) k/uL Eosinophils # (0-0.7) k/uL Basophils # (0-0.2) k/uL Macrocytosis Sodium (137-145) mmol/L Potassium (3.5-5.1) mmol/L Chloride (98-107) mmol/L Carbon Dioxide (22-30) mmol/L Anion Gap mmol/L BUN (9-20) mg/dL Creatinine (0.66-1.25) mg/dL Est GFR (CKD-EPI)AfAm (>60 ml/min/1.73 sqM) Est GFR (CKD-EPI)NonAf (>60 ml/min/1.73 sqM) Glucose (74-99) mg/dL Plasma Lactic Acid Cristian 1.0 (0.7-2.0) mmol/L Calcium (8.4-10.2) mg/dL Total Bilirubin (0.2-1.3) mg/dL AST (17-59) U/L ALT (4-49) U/L Alkaline Phosphatase (38-126) U/L Total Protein (6.3-8.2) g/dL Albumin (3.5-5.0) g/dL Amylase (30-110) U/L Lipase (23-300) U/L Urine Color Urine Appearance (Clear) Urine pH (5.0-8.0) Ur Specific Bowie (1.001-1.035) Urine Protein (Negative) Urine Glucose (UA) (Negative) Urine Ketones (Negative) Urine Blood (Negative) Urine Nitrite (Negative) Urine Bilirubin (Negative) Urine Urobilinogen (<2.0) mg/dL Ur Leukocyte Esterase (Negative) Disposition Clinical Impression: Diverticulitis, LLQ pain Disposition: HOME SELF-CARE Condition: Good Additional Instructions: Please use medication as discussed. Please follow-up with family doctor in the next 2 days, GI in next week. Please return to emergency room if the symptoms increase or worsen or for any other concerns. Prescriptions: Ciprofloxacin HCl [Cipro] 500 mg PO BID 10 Days #20 tab metroNIDAZOLE [Flagyl] 500 mg PO Q8HR 10 Days #30 tab Is patient prescribed a controlled substance at d/c from ED?: No Referrals: Harish Alvarado DO [Primary Care Provider] - 1-2 days Joan Dill MD [STAFF PHYSICIAN] - 1-2 days Time of Disposition: 16:21
[2020-12-02 15:08] LABS: Basophils % (A) 0 %; Eosinophils # (A) 0.1 k/uL (0-0.7); Eosinophils % (A) 1 %; HCT 42.4 % (39.0-53.0); HGB 13.7 gm/dL (13.0-17.5); Lymphocytes % (A) 10 %; MCH 33.8 pg (25.0-35.0); MCHC 32.3 g/dL (31.0-37.0); MCV 104.5 fL (80.0-100.0); Macrocytosis Slight; Mean Platelet Volume 9.2; Monocytes # (A) 0.2 k/uL (0-1.0); Monocytes % (A) 2 %; Neutrophils # (A) 9.2 k/uL (1.3-7.7); Neutrophils % (A) 86 %; Platelet Count 175 k/uL (150-450); RBC 4.05 m/uL (4.30-5.90); RDW 13.7 % (11.5-15.5); WBC 10.7 k/uL (3.8-10.6)
[2020-12-02 15:09] LABS: Appearance,Urine Clear (Clear); Bilirubin,Urine Negative (Negative); Blood,Urine Negative (Negative); Color,Urine Yellow; Glucose,Urine (UA) Negative (Negative); Ketones,Urine Negative (Negative); Leukocyte Esterase,Urine Negative (Negative); Nitrite,Urine Negative (Negative); PH, Urine 8.5 (5.0-8.0); Protein,Urine Trace (Negative); Specific Gravity,Urine 1.026 (1.001-1.035)
[2020-12-02 15:30] LABS: ALT 34 U/L (4-49); AST 37 U/L (17-59); African American GFR (CKD) >90 (>60 ml/min/1.73 sqM); Albumin 3.9 g/dL (3.5-5.0); Alkaline Phosphatase 193 U/L (38-126); Amylase 62 U/L (30-110); Anion Gap 6 mmol/L; Blood Urea Nitrogen 28 mg/dL (9-20); Calcium 9.3 mg/dL (8.4-10.2); Carbon Dioxide 32 mmol/L (22-30); Chloride 98 mmol/L (98-107); Glucose 94 mg/dL (74-99); Lipase 70 U/L (23-300); Non-African American GFR(CKD) >90 (>60 ml/min/1.73 sqM); Potassium 4.7 mmol/L (3.5-5.1); Sodium 136 mmol/L (137-145); Total Bilirubin 0.9 mg/dL (0.2-1.3); Total Protein 7.4 g/dL (6.3-8.2)
--- NOTE | 2020-12-02 16:11 | CT ---
EXAMINATION TYPE: CT abdomen pelvis w con DATE OF EXAM: 12/02/2020 COMPARISON: 06/02/2019 HISTORY: left sided abdominal pain CT DLP: 894.4 mGycm Automated exposure control for dose reduction was used. TECHNIQUE: Helical acquisition of images was performed from the lung bases through the pelvis. CONTRAST: Performed without Oral Contrast and with IV Contrast, patient injected with 100 mL of Isovue 300. FINDINGS: There is mild to moderate atelectasis in the right lung base with chronic marked elevation of the rig ht hemidiaphragm. There is a feeding tube within the stomach. There is no bowel obstruction. In the proximal descending : There is a focal area of pericolonic fat infiltration consistent with mild diverticulitis. There is no abscess, free intraperitoneal fluid or air. The liver, pancreas and spleen are normal. There is no biliary ductal dilatation. The kidneys excrete contrast promptly and symmetrically and there is no solid renal mass or hydroneph rosis. There is no retroperitoneal adenopathy or hemorrhage in the caliber of the abdominal aorta is normal. Within the pelvis, there is no mass, free fluid, abscess or adenopathy. The osseous structures and soft tissues are unremarkable. IMPRESSION: 1. Findings consistent with mild acute diverticulitis of the proximal descending colon without intra- abdominal abscess, free fluid, free air or bowel obstruction. 2. Marked elevation the right hemidiaphragm and chronic moderate right lower lobe atelectasis. 3. Feeding tube within the stomach.
[2020-12-02] MEDS ORDERED: metroNIDAZOLE 500 MG TAB PO STA (16:15)
[2020-12-02] MEDS ORDERED: CIPROFLOXACIN HCL 500 MG TAB PO STA (16:16)
[2020-12-02 16:59] VITALS: BP 133/88; PULSE 65
== END 2020-12-02 17:00 | disposition home or self-care (01) ==
LOC: EC 14:17
DX: K57.92 Diverticulitis of intestine, part unspecified, without perforation or abscess without bleeding (principal); I48.91 Unspecified atrial fibrillation; J44.9 Chronic obstructive pulmonary disease, unspecified; K21.9 Gastro-esophageal reflux disease without esophagitis; M06.9 Rheumatoid arthritis, unspecified; N40.0 Benign prostatic hyperplasia without lower urinary tract symptoms; Z87.891 Personal history of nicotine dependence; G62.9 Polyneuropathy, unspecified; Z86.73 Personal history of transient ischemic attack (TIA), and cerebral infarction without residual deficits; Z79.899 Other long term (current) drug therapy
CPT/HCPCS: 36415; 80053; 82150; 83605; 83690; 85025; 81003; 74177; 99284; Q9967

== ENCOUNTER → 2021-01-30 | Outpatient (CLI) | payer MEDICARE ==
[2021-01-30 14:44] LABS: African American GFR (CKD) >90 (>60 ml/min/1.73 sqM); Blood Urea Nitrogen 31 mg/dL (9-20); Non-African American GFR(CKD) 87 (>60 ml/min/1.73 sqM)
--- NOTE | 2021-01-30 15:30 | CT ---
EXAMINATION TYPE: CT angio chest DATE OF EXAM: 01/30/2021 COMPARISON: None HISTORY: f/u aneurysm CT DLP: 255.6 mGycm CONTRAST: CTA thoracic aorta with 3-D reconstruction is performed and with IV Contrast, patient injected with 1 00 mL of Isovue 370. Contrast CTA of the thoracic aorta was performed from the lung apex through the upper abdomen. 3D re construction imaging obtained at a separate workstation. CT Chest: THORACIC AORTA: No evidence for thoracic aortic aneurysm. There is ectasia of the ascending thoracic aorta without aneurysm. Mild atheromatous changes seen. There is no evidence for dissection or peria ortic collection. LUNGS: Atelectasis right medial lung base. No pulmonary nodule or mass is detected. No pleural effus ion or CT evidence of interstitial lung disease. MEDIASTINUM: No evidence for mediastinal hematoma. The heart is not enlarged. No evidence for med iastinal mass or adenopathy. HILAR STRUCTURES: No evidence for mass. No hilar adenopathy is appreciated. OTHER: No significant abnormality. IMPRESSION- Ectasia of the ascending thoracic aorta without evidence for aneurysm.
== END | disposition home or self-care (01) ==
LOC: RADCTMAIN 14:00
PROVIDERS: ATTEND Thoracic Surgery (Cardiothoracic Vascular Surgery)
DX: I77.810 Thoracic aortic ectasia (principal)
CPT/HCPCS: 82565; 84520; 71275; 36415; Q9967

== ENCOUNTER 2022-04-16 11:29 | Day surgery (SDC) | payer MEDICARE ==
[2022-04-16 12:26] VITALS: RESP 20; TEMP 98.3
[2022-04-16] MEDS ORDERED: LACTATED RINGERS 1,000 ML IV ONE (12:26)
[2022-04-16] MEDS ORDERED: IV FLUID CONTINUATION 900 ML IV ONE (13:01)
--- NOTE | 2022-04-16 13:03 | P.PN ---
Progress Note - Text Progress Note Date: 04/16/22 Patient is here for PEG tube replacement. He is complaining of some leakage around the PEG tube. hehas history of oropharyngeal dysphagia and hence had a PEG tube placed in 2018. Last EGD with PEG tube replacement was in October 2020. Physical examination he appears comfortable and this was VSS BP 121/78 NM 65 /min Chest CTA and S1 S2 heard. Abd PEG tub ein place and looked good No leakage seen. impression PEG Tube appears to be in good condition. It was flushed with 60 mL of water and no leakage noted. Recommendations Advised to use one can every 2-3 hours to avoid leakage around the PEG , no need for PEG tube replacement today. follow up in office as needed .
[2022-04-16 13:18] VITALS: BP 144/95; PULSE 112
== END 2022-04-16 13:30 | disposition home or self-care (01) ==
LOC: ORWHC2ENDO 11:29
PROVIDERS: ATTEND Internal Medicine Gastroenterology
DX: Z93.1 Gastrostomy status (principal); Z53.9 Procedure and treatment not carried out, unspecified reason

== ENCOUNTER 2022-04-19 19:20 | Inpatient (IN) | payer MEDICARE ==
[2022-04-19] MEDS ORDERED: SODIUM CHLORIDE 0.9% 1,000 ML IV STA (19:24)
[2022-04-19] MEDS ORDERED: methylPREDNISolone SOD SUCCI 125 MG/2 ML VIAL IV STA (19:25)
[2022-04-19 20:10] LABS: Basophils % (A) 0 %; Eosinophils # (A) 0.1 k/uL (0-0.7); Eosinophils % (A) 1 %; HCT 39.2 % (39.0-53.0); HGB 13.1 gm/dL (13.0-17.5); Lymphocytes # (A) 2.1 k/uL (1.0-4.8); Lymphocytes % (A) 18 %; MCH 34.4 pg (25.0-35.0); MCHC 33.3 g/dL (31.0-37.0); MCV 103.2 fL (80.0-100.0); Macrocytosis Slight; Monocytes # (A) 0.5 k/uL (0-1.0); Monocytes % (A) 4 %; Neutrophils # (A) 9.2 k/uL (1.3-7.7); Neutrophils % (A) 75 %; Platelet Count 235 k/uL (150-450); RDW 12.9 % (11.5-15.5); WBC 12.2 k/uL (3.8-10.6)
[2022-04-19 20:23] LABS: ALT 39 U/L (4-49); AST 35 U/L (17-59); African American GFR (CKD) >90 (>60 ml/min/1.73 sqM); Albumin 3.2 g/dL (3.5-5.0); Alkaline Phosphatase 211 U/L (38-126); Anion Gap 9 mmol/L; Blood Urea Nitrogen 37 mg/dL (9-20); Calcium 9.1 mg/dL (8.4-10.2); Carbon Dioxide 37 mmol/L (22-30); Chloride 96 mmol/L (98-107); Glucose 120 mg/dL (74-99); Non-African American GFR(CKD) >90 (>60 ml/min/1.73 sqM); Potassium 3.8 mmol/L (3.5-5.1); Sodium 142 mmol/L (137-145); Total Bilirubin 0.7 mg/dL (0.2-1.3); Total Protein 6.8 g/dL (6.3-8.2)
[2022-04-19 20:26] LABS: INR 0.9 (<1.2); Partial Thromboplastin Time 22.1 sec (22.0-30.0); Prothrombin Time 10.2 sec (9.0-12.0)
--- NOTE | 2022-04-19 20:29 | ED ---
SOB HPI - General Chief Complaint: Shortness of Breath Stated Complaint: Difficulty Breathing Time Seen by Provider: 04/19/22 19:24 Source: patient, EMS, RN notes reviewed Mode of arrival: EMS - History of Present Illness Initial Comments: 77-year-old male with a history of COPD history as well as esophageal paralysis and a of PEG tube who does have complaints of aspiration at times who presents by EMS today with complaints of shortness of breath difficulty breathing for the past 3 days of increased cough with some green phlegm and fever yesterday so far none today no overt chest pain he was given updraft treatments in route with some improvement. No other current complaints modifying factors he does use oxygen when needed. Patient states he had a negative Coban test yesterday. MD Complaint: shortness of breath, cough - Related Data Home Medications Medication Instructions Recorded Confirmed Omeprazole 20 mg PEG/G-TUBE BID 07/31/14 04/16/22 Fluticasone/Vilanterol [Breo 1 puff INHALATION RT-DAILY 10/24/18 04/16/22 Ellipta 200-25 Mcg Inhaler] Albuterol Inhaler [Ventolin Hfa 1 - 2 puff INHALATION RT-Q6H PRN 11/06/18 04/16/22 Inhaler] Ipratropium-Albuterol Nebulize 3 ml INHALATION RT-QID PRN 11/06/18 04/16/22 [Duoneb 0.5 mg-3 mg/3 ml Soln] Metoprolol Tartrate [Lopressor] 12.5 mg PEG/G-TUBE DAILY 12/26/18 04/16/22 Loratadine-Pseudoeph 10-240 mg 1 each PO DAILY 03/14/19 04/16/22 [Claritin-D 24 Hr] Mucinex (Unknown Dose) 1 dose PO BID PRN 03/14/19 04/16/22 Aspirin [Adult Low Dose Aspirin EC] 81 mg PO 04/16/22 Gabapentin 300 mg PO BID 04/16/22 04/16/22 Ramelteon 8 mg PO 04/16/22 Allergies Allergy/AdvReac Type Severity Reaction Status Date / Time Penicillins Allergy Itching Verified 04/16/22 12:08 piperacillin [From Zosyn] Allergy Itching Verified 04/16/22 12:08 Sulfa (Sulfonamide Allergy Rash/Hives Verified 04/16/22 12:08 Antibiotics) tazobactam [From Zosyn] Allergy Itching Verified 04/16/22 12:08 Review of Systems ROS Statement: Those systems with pertinent positive or pertinent negative responses have been documented in the HPI. ROS Other: All systems not noted in ROS Statement are negative. 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 states fluid filled area on his elbow . History of Any Multi-Drug Resistant Organisms: None Reported Past Surgical History: Appendectomy, Hernia Repair, Orthopedic Surgery, Tonsillectomy Additional Past Surgical History / Comment(s): Field implant in throat, peg tube, EGDs, colonoscopy, R inguinal hernia, L foot bunionectomy, hemorrhoidectomy, L ring trigger finger release, nasal reconstruction, vocal cord surgery, cataracts/lens implants. fx left pelvis, PEG TUBE Past Anesthesia/Blood Transfusion Reactions: No Reported Reaction Additional Past Anesthesia/Blood Transfusion Reaction / Comment(s): PARALYZED VOCAL CHORDS. Pt has received blood in past without reaction. Past Psychological History: No Psychological Hx Reported Smoking Status: Former smoker Past Alcohol Use History: None Reported Past Drug Use History: None Reported - Past Family History Sister(s) Additional Family Medical History / Comment(s): passed colon CA Brother(s) Additional Family Medical History / Comment(s): sarcidosis Mother Family Medical History: COPD Additional Family Medical History / Comment(s): lung CA Son(s) Family Medical History: Hypertension Additional Family Medical History / Comment(s): lymphoma, sarcoidosis Father Family Medical History: No Reported History Additional Family Medical History / Comment(s): Father was healthy General Exam - General Exam Comments Initial Comments: This is a well-developed well-nourished awake alert oriented 4 male General appearance: alert, in no apparent distress Head exam: Present: atraumatic, normocephalic, normal inspection Eye exam: Present: normal appearance, PERRL, EOMI. Absent: scleral icterus, conjunctival injection, periorbital swelling ENT exam: Present: mucous membranes dry Neck exam: Present: normal inspection, full ROM, other (No stridor JVD or bruits). Absent: tenderness, meningismus, lymphadenopathy Respiratory exam: Present: decreased breath sounds. Absent: respiratory distress, wheezes, rales, rhonchi, stridor Cardiovascular Exam: Present: regular rate, normal rhythm, normal heart sounds. Absent: systolic murmur, diastolic murmur, rubs, gallop, clicks GI/Abdominal exam: Present: soft, normal bowel sounds. Absent: distended, tenderness, guarding, rebound, rigid Extremities exam: Present: full ROM, normal capillary refill, pedal edema. Absent: tenderness, joint swelling, calf tenderness Back exam: Present: normal inspection Neurological exam: Present: alert, oriented X3, CN II-XII intact Psychiatric exam: Present: normal affect, normal mood Skin exam: Present: warm, dry, intact, normal color. Absent: rash Course Vital Signs 04/19/22 19:24 Temperature 99.0 F Pulse Rate 94 Respiratory 22 Rate Blood Pressure 122/102 O2 Sat by Pulse 91 L Oximetry Medical Decision Making - Medical Decision Making I did discuss findings with patient family as well as with Dr. Carrillo patient will be admitted consultation from Dr. Magdaleno the presentation is consistent with a COPD exacerbation with right lower lobe pneumonitis - Lab Data Result diagrams: 04/19/22 19:24 04/19/22 19:55 Lab Results 04/19/22 04/19/22 04/19/22 Range/Units 19:24 19:55 19:55 WBC 12.2 H (3.8-10.6) k/uL RBC 3.80 L (4.30-5.90) m/uL Hgb 13.1 (13.0-17.5) gm/dL Hct 39.2 (39.0-53.0) % MCV 103.2 H (80.0-100.0) fL MCH 34.4 (25.0-35.0) pg MCHC 33.3 (31.0-37.0) g/dL RDW 12.9 (11.5-15.5) % Plt Count 235 (150-450) k/uL MPV 10.0 Neutrophils % 75 % Lymphocytes % 18 % Monocytes % 4 % Eosinophils % 1 % Basophils % 0 % Neutrophils # 9.2 H (1.3-7.7) k/uL Lymphocytes # 2.1 (1.0-4.8) k/uL Monocytes # 0.5 (0-1.0) k/uL Eosinophils # 0.1 (0-0.7) k/uL Basophils # 0.0 (0-0.2) k/uL Macrocytosis Slight PT 10.2 (9.0-12.0) sec INR 0.9 (<1.2) APTT 22.1 (22.0-30.0) sec Sodium 142 (137-145) mmol/L Potassium 3.8 (3.5-5.1) mmol/L Chloride 96 L (98-107) mmol/L Carbon Dioxide 37 H (22-30) mmol/L Anion Gap 9 mmol/L BUN 37 H (9-20) mg/dL Creatinine 0.67 (0.66-1.25) mg/dL Est GFR (CKD-EPI)AfAm >90 (>60 ml/min/1.73 sqM) Est GFR (CKD-EPI)NonAf >90 (>60 ml/min/1.73 sqM) Glucose 120 H (74-99) mg/dL Plasma Lactic Acid Cristian (0.7-2.0) mmol/L Calcium 9.1 (8.4-10.2) mg/dL Magnesium 2.0 (1.6-2.3) mg/dL Total Bilirubin 0.7 (0.2-1.3) mg/dL AST 35 (17-59) U/L ALT 39 (4-49) U/L Alkaline Phosphatase 211 H (38-126) U/L Troponin I (0.000-0.034) ng/mL NT-Pro-B Natriuret Pep pg/mL Total Protein 6.8 (6.3-8.2) g/dL Albumin 3.2 L (3.5-5.0) g/dL 04/19/22 04/19/22 04/19/22 Range/Units 19:55 19:55 19:55 WBC (3.8-10.6) k/uL RBC (4.30-5.90) m/uL Hgb (13.0-17.5) gm/dL Hct (39.0-53.0) % MCV (80.0-100.0) fL MCH (25.0-35.0) pg MCHC (31.0-37.0) g/dL RDW (11.5-15.5) % Plt Count (150-450) k/uL MPV Neutrophils % % Lymphocytes % % Monocytes % % Eosinophils % % Basophils % % Neutrophils # (1.3-7.7) k/uL Lymphocytes # (1.0-4.8) k/uL Monocytes # (0-1.0) k/uL Eosinophils # (0-0.7) k/uL Basophils # (0-0.2) k/uL Macrocytosis PT (9.0-12.0) sec INR (<1.2) APTT (22.0-30.0) sec Sodium (137-145) mmol/L Potassium (3.5-5.1) mmol/L Chloride (98-107) mmol/L Carbon Dioxide (22-30) mmol/L Anion Gap mmol/L BUN (9-20) mg/dL Creatinine (0.66-1.25) mg/dL Est GFR (CKD-EPI)AfAm (>60 ml/min/1.73 sqM) Est GFR (CKD-EPI)NonAf (>60 ml/min/1.73 sqM) Glucose (74-99) mg/dL Plasma Lactic Acid Cristian 1.6 (0.7-2.0) mmol/L Calcium (8.4-10.2) mg/dL Magnesium (1.6-2.3) mg/dL Total Bilirubin (0.2-1.3) mg/dL AST (17-59) U/L ALT (4-49) U/L Alkaline Phosphatase (38-126) U/L Troponin I <0.012 (0.000-0.034) ng/mL NT-Pro-B Natriuret Pep 884 pg/mL Total Protein (6.3-8.2) g/dL Albumin (3.5-5.0) g/dL - EKG Data -: EKG Interpreted by Me EKG shows normal: sinus rhythm EKG Comments: Sinus rhythm a 94 KS interval 176 QRS duration 92 QT since QTC to 76/328 left exodeviation low-voltage LVH - Radiology Data Radiology results: image reviewed (Imaging reviewed report pending evidence of elevated right hemidiaphragm infiltrate not ruled out) Disposition Clinical Impression: Right lower lobe pneumonitis, COPD with exacerbation, Dehydration, Febrile illness, acute Disposition: ADMITTED IP TO THIS HOSP Condition: Fair Referrals: None,Stated [Primary Care Provider] - 1-2 days Decision Date: 04/19/22 Decision Time: 21:00
[2022-04-19] MEDS ORDERED: PNEUMONIA PROTOCOL UTILIZED 1 EACH MISC PO PRN (21:01)
[2022-04-19] MEDS ORDERED: LEVOFLOXACIN 750MG-D5W PMX 750 MG in DEXTROSE/WATER 1 150ML.BAG IVPB STA (21:01)
--- NOTE | 2022-04-19 21:02 | XR ---
EXAMINATION TYPE: XR chest 2V DATE OF EXAM: 04/19/2022 COMPARISON: 12/01/2018 HISTORY: Difficulty breathing TECHNIQUE: 2 views FINDINGS: There is elevated right diaphragm. Left lung is clear. No heart failure. There are chest le ads. Heart size is normal. IMPRESSION: Chronic elevation of the right diaphragm that is slightly worse than last exam. No heart failure.
[2022-04-19] MEDS ORDERED: IBUPROFEN 200 MG TAB PO PRN (21:04)
[2022-04-19] MEDS ORDERED: guaiFENesin 600 MG TABLET.ER PO PRN (21:04)
[2022-04-19] MEDS ORDERED: TEMAZEPAM 15 MG CAP PO PRN (21:04)
[2022-04-19] MEDS ORDERED: GABAPENTIN 300 MG CAP PO PRN (21:04)
[2022-04-19] MEDS: SODIUM CHLORIDE 0.9% 1,000 ML IV SCH (21:55)
[2022-04-20] MEDS ORDERED: IPRATROPIUM-ALBUTEROL 3 ML NEB INHALATION SCH
[2022-04-20] MEDS ORDERED: SYMBICORT 160-4.5 MCG INHALER INHALATION SCH (08:00)
[2022-04-20] MEDS: IPRATROPIUM-ALBUTEROL 3 ML NEB INHALATION PRN ×4 (08:05→19:47)
[2022-04-20] MEDS: LORATADINE-PSEUDOEPH 5-120 MG 1 EACH TAB.ER.12H PO SCH ×2 (09:11→21:50)
[2022-04-20] MEDS: METOPROLOL TARTRATE 12.5 MG TAB PO SCH (09:34)
[2022-04-20] MEDS ORDERED: ACETAMINOPHEN TAB 325 MG TAB PO PRN (11:20)
[2022-04-20] MEDS ORDERED: ONDANSETRON 4 MG/2 ML VIAL IVP PRN (11:20)
[2022-04-20] MEDS ORDERED: LORazepam 0.5 MG TAB PO PRN (11:20)
[2022-04-20] MEDS ORDERED: NALOXONE 0.4 MG/ML 1 ML VIAL IV PRN (11:20)
[2022-04-20] MEDS ORDERED: LACTULOSE 20 GM/30 ML CUP PO PRN (11:20)
[2022-04-20] MEDS: BUDESONIDE 1 MG/2 ML NEBU INHALATION SCH ×2 (11:31→19:47)
[2022-04-20] MEDS: FORMOTEROL FUMARATE 20 MCG/2 ML NEBU INHALATION SCH ×2 (11:31→19:47)
--- NOTE | 2022-04-20 12:00 | P.HPIM ---
History of Present Illness H&P Date: 04/20/22 Chief Complaint: Congested cough This is a 77-year-old patient, follows Dr. Harish Matthews. Rn Telehealth Dr. Magdaleno. Chronic stable medical conditions include chronic dysphagia may occasionally take a pill by mouth, PEG tube feeding takes 5 cans of Jevity a day, GERD, multiple myeloma, COPD, left vocal cord paralysis, partial right vocal cord paralysis, balance esophagitis, home oxygen 2 L. Does use a 4 wheeled walker. Lives with his . Patient presents with 3 days of increasing cough greenish yellow sputum thick. Increasing short of breath and low-grade fever tired rundown. Admitted with pneumonia. Started on Levaquin. Also wheezing and short of breath. Review of systems: GEN.: Tired, low-grade fever EYES: None HEENT: None NECK: None RESPIRATORY: As above] CARDIOVASCULAR: None GASTROINTESTINAL: None GENITOURINARY: None MUSCULOSKELETAL: Some joint pains LYMPHATICS: None HEMATOLOGICAL: None PSYCHIATRY: Bit anxious NEUROLOGICAL: Does use a 4 wheeled walker Past medical history to include: Atrial fibrillation, COPD, stroke, GERD, prostatitis, rheumatoid arthritis, left vocal cord for last paralysis, right vocal cord partial paralysis, left upper palate partial paralysis, dysphagia midface had muscle wasting and weakness, PEG tube, Holladay esophagus, BPH, multiple myeloma, home oxygen 2 L, abdominal aortic aneurysm, rheumatoid arthritis, pseudocyst of pancreas, Social history: Lives with his . Does use a 4 wheel walker. 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 Patient smoked for 10 years 1 pack a day stopped in 1971. Physical examination: VITAL SIGNS: 99, 95, 22, 1 22 x 1 02, 91% on 3 L GENERAL: BMI 24.8, declining bed awake tired. EYES: Pupils equal. Conjunctiva normal. HEENT: External appearance of nose and ears normal, oral cavity grossly normal. NECK: JVD not raised; masses not palpable. HEART: First and second heart sounds are normal; no edema. LUNGS: Respiratory rate increased; decreased breath sounds basal crackles course. ABDOMEN: Soft, nontender, liver spleen not palpable, no masses palpable. PEG tube PSYCH: Alert and oriented x3; mood and affect a bit anxiousl. MUSCULOSKELETAL:No Clubbing/cyanosis;muscles-grossly intact. Muscle muscle mass NEUROLOGICAL: [Cranial nerves grossly intact; no facial asymmetry, decreased bowel in all 4 limbs LYMPHATICS: No lymph nodes palpable in the axilla and neck INVESTIGATIONS, reviewed in the clinical context: WBC 12.2 hemoglobin 13.1 platelets 235 sodium 142 potassium 3.8 BUN 37 creatinine 0.67 COVID 19/influenza type A/type B: Not detected Albumin 3.2 EKG tracing personally reviewed by me: Normal sinus rhythm. Chest x-ray film personally reviewed by me: Elevation in right diaphragm. Assessment and plan: -Pneumonia suspected gram-negative organism Levaquin. Mucinex -Acute COPD exacerbation and a previous smoker DuoNeb, nebulized Pulmicort, Perforomist -Chronic medical debility Fall precautions -Chronic gait dysfunction, at her baseline uses a 4 wheeled walker -Chronic hypoxic respiratory failure from underlying COPD 2 L oxygen at home -Mild protein calorie malnutrition. Dietitian consultation -PEG tube feeding 5 cans of Jevity a day -Paroxysmal atrial fibrillation, currently in sinus rhythm Lopressor -GERD Pepcid when necessary -Left vocal cord paralysis/right vocal cord paralysis, left upper palate partial paralysis, dysphagia from facial onset sensory motor neuropathy -Phillips's esophagus -BPH Levaquin. DuoNeb. Perforomist. Pulmicort. Resume home medications. 2 feeding. Keep nothing by mouth. Mucinex. Sputum for Gram stain and culture. Oxygen supplementation. Pulmonary consulted. Care was discussed with the patient. Questions answered. 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 states fluid filled area on his elbow . History of Any Multi-Drug Resistant Organisms: None Reported Past Surgical History: Appendectomy, Hernia Repair, Orthopedic Surgery, Tonsillectomy Additional Past Surgical History / Comment(s): Field implant in throat, peg tube, EGDs, colonoscopy, R inguinal hernia, L foot bunionectomy, hemorrhoidectomy, L ring trigger finger release, nasal reconstruction, vocal cord surgery, cataracts/lens implants. fx left pelvis, PEG TUBE Past Anesthesia/Blood Transfusion Reactions: No Reported Reaction Additional Past Anesthesia/Blood Transfusion Reaction / Comment(s): PARALYZED VOCAL CHORDS. Pt has received blood in past without reaction. Past Psychological History: No Psychological Hx Reported Additional Psychological History / Comment(s): . Smoking Status: Former smoker Past Alcohol Use History: None Reported Additional Past Alcohol Use History / Comment(s): Patient started smoking 1961 and quit in 1971-smoked 1 ppd. Past Drug Use History: None Reported - Past Family History Sister(s) Additional Family Medical History / Comment(s): passed colon CA Brother(s) Additional Family Medical History / Comment(s): sarcidosis Mother Family Medical History: COPD Additional Family Medical History / Comment(s): lung CA Son(s) Family Medical History: Hypertension Additional Family Medical History / Comment(s): lymphoma, sarcoidosis Father Family Medical History: No Reported History Additional Family Medical History / Comment(s): Father was healthy Medications and Allergies Home Medications Medication Instructions Recorded Confirmed Type Fluticasone/Vilanterol [Breo 1 puff INHALATION RT-DAILY 10/24/18 04/19/22 History Ellipta 200-25 Mcg Inhaler] Albuterol Inhaler [Ventolin Hfa 1 - 2 puff INHALATION RT-Q6H PRN 11/06/1803/28 History Inhaler] Ipratropium-Albuterol Nebulize 3 ml INHALATION RT-QID PRN 11/06/18 04/19/22 History [Duoneb 0.5 mg-3 mg/3 ml Soln] Metoprolol Tartrate [Lopressor] 12.5 mg PO DAILY 12/26/18 04/19/22 History Loratadine-Pseudoeph 10-240 mg 1 tab PO DAILY 03/14/19 04/19/22 History [Claritin-D 24 Hr] Aspirin [Adult Low Dose Aspirin EC] 81 mg PO MOWEFR 04/16/22 04/19/22 History Gabapentin 300 mg PO HS PRN 04/16/22 04/19/22 History Ramelteon 8 mg PO HS PRN 04/16/22 04/19/22 History Ibuprofen [Motrin Ib] 400 mg PO Q8H PRN 04/19/22 04/19/22 History guaiFENesin [Mucinex] 600 mg PO BID PRN 04/19/22 04/19/22 History Allergies Allergy/AdvReac Type Severity Reaction Status Date / Time Penicillins Allergy Itching/David Verified 04/19/22 21:00 h piperacillin [From Zosyn] Allergy Itching Verified 04/19/22 21:00 Sulfa (Sulfonamide Allergy Rash/Hives Verified 04/19/22 21:00 Antibiotics) tazobactam [From Zosyn] Allergy Itching Verified 04/19/22 21:00 Physical Exam Vitals: Vital Signs Temp Pulse Pulse Resp BP BP Pulse Ox 04/20/22 08:15 84 04/20/22 08:05 80 3 L 04/20/22 08:00 98.3 F 75 18 149/83 95 04/20/22 07:35 94 L 04/20/22 02:05 99.3 F 83 16 123/80 94 L 04/19/22 23:31 99.0 F 88 15 142/80 96 04/19/22 22:01 86 18 109/77 98 04/19/22 21:45 99.2 F 04/19/22 21:30 86 20 120/83 97 04/19/22 19:24 99.0 F 94 22 122/102 91 L Intake and Output 04/19/22 04/20/22 04/20/22 22:59 06:59 14:59 Output Total 125 Balance -125 Output: Urine 125 Other: Voiding Method Urinal Weight 78.471 kg 78.471 kg Results CBC & Chem 7: 04/19/22 19:24 04/19/22 19:55 Labs: Abnormal Lab Results - Last 24 Hours (Table) 04/19/22 04/19/22 Range/Units 19:24 19:55 WBC 12.2 H (3.8-10.6) k/uL RBC 3.80 L (4.30-5.90) m/uL MCV 103.2 H (80.0-100.0) fL Neutrophils # 9.2 H (1.3-7.7) k/uL Chloride 96 L (98-107) mmol/L Carbon Dioxide 37 H (22-30) mmol/L BUN 37 H (9-20) mg/dL Glucose 120 H (74-99) mg/dL Alkaline Phosphatase 211 H (38-126) U/L Albumin 3.2 L (3.5-5.0) g/dL Thrombosis Risk Factor Assmnt - Choose All That Apply Any of the Below Risk Factors Present?: Yes Each Factor Represents 1 point: Abnormal pulmonary function (COPD) Other Risk Factors: Yes Each Risk Factor Represents 3 Points: Age 75 years or older Other congenital or acquired thrombophilia - If yes, enter type in comment: No Thrombosis Risk Factor Assessment Total Risk Factor Score: 4 Thrombosis Risk Factor Assessment Level: Moderate Risk
--- NOTE | 2022-04-20 13:01 | P.CNPUL ---
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 The patient also has right hemidiaphragmatic paralysis, unilateral completed vocal cord paralysis and the patient has had chronic dysphagia and the patient receives active feeding for nutritional support. He is also known to have COPD maintained on a combination of Breo /Combivent on an as-needed basis. The patient also has suffered a CVA and the patient ambulate with the help of a cane. He has history of multiple myeloma, smoldering phase and the patient has followed up locally and [facility]. No reported history of amyloidosis. He is known to have chronic atrial flutter and he is demented on Lopressor for rate control, no anticoagulants. The patient came into the hospital because of increased shortness of breath and sudden onset cough and congestion. Denies having any aspiration. Noted the patient receives Jevity through enteral feeding and nut ritional support is currently afebrile. He is typically on 2 L and currently is on 3 L. The patient was admitted to the floor 0.2 hemoglobin 13.1. BNP is at 37 with a creatinine of 0.67 and his omeprazole 42. Troponins are negative. COVID 19 testing was negative. Influenza screen was negative. The chest x-ray showing chronic elevation of right hemidiaphragm with some limited atelectasis/infiltrate the right lung base. Previous sputum samples that showed pseudomonas and Serratia. Pseudomonal growth was more than a year ago. Currently, the patient is on Levaquin 750 mg by mouth daily. Review of Systems Patient reports no sore throat, no bleeding gums, no snoring, no dry mouth, no mouth ulcers, no oral abnormalities, and no teeth problems; chronic hoarseness, dysphonia. He reports shortness of breath when walking but reports no chest pain, no arm pain on exertion, no shortness of breath when lying down, no palpitations, and no known heart murmur. He reports cough and shortness of breath but reports no wheezing, no coughing up blood, and no sleep apnea. He reports no abdominal pain, no nausea, no vomiting, no constipation, normal appetite, no diarrhea, not vomiting blood, no dyspepsia, and no GERD; aspiration, the patient has a PEG tube for enteral feeding and the changes support. He takes some minimal oral intake for pleasure only. He has had previous episodes of aspiration pneumonia.. He reports muscle weakness, arthralgias/joint pain, and back pain but reports no muscle aches and no swelling in the extremities; rheumatoid arthritis. He reports weakness but reports no loss of consciousness, no numbness, no seizures, no dizziness, no surinder jermain, no headaches, and no tremor; ataxia. He reports sleep disturbances but reports no depression, feeling safe in a relationship, no alcohol abuse, no anxiety, no hallucinations, and no suicidal thoughts. He reports fatigue. He reports no fever, no night sweats, no significant weight loss, and no exercise intolerance. He reports no dry eyes, no vision change, and no irritation. He reports no difficulty hearing and no ear pain. He reports no frequent nosebleeds, no nose problems, and no sinus problems. He reports no incontinence, no difficulty urinating, no hematuria, and no increased frequency. He reports no abnormal mole, no jaundice, no rashes, and no laceration. He reports no swollen glands, no bruising, and no excessive bleeding. He reports no runny nose, no sinus pressure, no itching, no hives, and no frequent sneezing. 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 states fluid filled area on his elbow . History of Any Multi-Drug Resistant Organisms: None Reported Past Surgical History: Appendectomy, Hernia Repair, Orthopedic Surgery, Tonsillectomy Additional Past Surgical History / Comment(s): Field implant in throat, peg tube, EGDs, colonoscopy, R inguinal hernia, L foot bunionectomy, hemorrhoidectomy, L ring trigger finger release, nasal reconstruction, vocal cord surgery, cataracts/lens implants. fx left pelvis, PEG TUBE Past Anesthesia/Blood Transfusion Reactions: No Reported Reaction Additional Past Anesthesia/Blood Transfusion Reaction / Comment(s): PARALYZED VOCAL CHORDS. Pt has received blood in past without reaction. Past Psychological History: No Psychological Hx Reported Additional Psychological History / Comment(s): . Smoking Status: Former smoker Past Alcohol Use History: None Reported Additional Past Alcohol Use History / Comment(s): Patient started smoking 1961 and quit in 1971-smoked 1 ppd. Past Drug Use History: None Reported - Past Family History Sister(s) Additional Family Medical History / Comment(s): passed colon CA Brother(s) Additional Family Medical History / Comment(s): sarcidosis Mother Family Medical History: COPD Additional Family Medical History / Comment(s): lung CA Son(s) Family Medical History: Hypertension Additional Family Medical History / Comment(s): lymphoma, sarcoidosis Father Family Medical History: No Reported History Additional Family Medical History / Comment(s): Father was healthy Medications and Allergies Home Medications Medication Instructions Recorded Confirmed Type Fluticasone/Vilanterol [Breo 1 puff INHALATION RT-DAILY 10/24/18 04/19/22 History Ellipta 200-25 Mcg Inhaler] Albuterol Inhaler [Ventolin Hfa 1 - 2 puff INHALATION RT-Q6H PRN 11/06/18 04/19/22 History Inhaler] Ipratropium-Albuterol Nebulize 3 ml INHALATION RT-QID PRN 11/06/18 04/19/22 History [Duoneb 0.5 mg-3 mg/3 ml Soln] Metoprolol Tartrate [Lopressor] 12.5 mg PO DAILY 12/26/18 04/19/22 History Loratadine-Pseudoeph 10-240 mg 1 tab PO DAILY 03/14/19 04/19/22 History [Claritin-D 24 Hr] Aspirin [Adult Low Dose Aspirin EC] 81 mg PO MOWEFR 04/16/22 04/19/22 History Gabapentin 300 mg PO HS PRN 04/16/22 04/19/22 History Ramelteon 8 mg PO HS PRN 04/16/22 04/19/22 History Ibuprofen [Motrin Ib] 400 mg PO Q8H PRN 04/19/22 04/19/22 History guaiFENesin [Mucinex] 600 mg PO BID PRN 04/19/22 04/19/22 History Allergies Allergy/AdvReac Type Severity Reaction Status Date / Time Penicillins Allergy Itching/David Verified 04/19/22 21:00 h piperacillin [From Zosyn] Allergy Itching Verified 04/19/22 21:00 Sulfa (Sulfonamide Allergy Rash/Hives Verified 04/19/22 21:00 Antibiotics) tazobactam [From Zosyn] Allergy Itching Verified 04/19/22 21:00 Physical Exam Vitals: Vital Signs Temp Pulse Pulse Resp BP BP Pulse Ox 04/20/22 11:41 88 18 04/20/22 11:28 88 18 04/20/22 08:15 84 04/20/22 08:05 80 3 L 04/20/22 08:00 98.3 F 75 18 149/83 95 04/20/22 07:35 94 L 04/20/22 02:05 99.3 F 83 16 123/80 94 L 04/19/22 23:31 99.0 F 88 15 142/80 96 04/19/22 22:01 86 18 109/77 98 04/19/22 21:45 99.2 F 04/19/22 21:30 86 20 120/83 97 04/19/22 19:24 99.0 F 94 22 122/102 91 L Intake and Output 04/19/22 04/20/22 04/20/22 22:59 06:59 14:59 Output Total 125 Balance -125 Output: Urine 125 Other: Voiding Method Urinal Weight 78.471 kg 78.471 kg General Appearance no diaphoresis, dyspnea, pallor, or respiratory distress and speech not interrupted by breaths, not cachectic, appears well, and mal nourished; hoarse voice. He is comfortable on 3 L of oxygen by nasal cannula HEENT no pursed lip breathing, jugular venous distention, mucous membrane cyanosis, or perioral cyanosis and mallampati classification: class 1. Chest no retractions, rhonchi, hyperinflation, barrel chest, sternocleidomastoid muscle contractions, supraclavicular retractions, intercostal retractions, prolonged expiratory wheezing, or decreased air movement and decreased air movement. Heart no right ventricular heave, distant heart sounds, or s3 gallop and (normal) jugular vein: jugular venous distention: by 0cm. GI bowel sounds: hyperactive (borborygmi) and diminished or absent; PEG tube site is clean and intact. E xtremities no cyanosis, clubbing, or edema. Neurologic no somnolence, confusion, or decreased mental status; facial weakness, left-sided ,muscle weakness. Assisstive Devices: ambulates with walker. Skin: General Appearance normal and (normal) normal except as noted. Results - Laboratory Findings CBC and BMP: 04/19/22 19:24 04/19/22 19:55 PT/INR, D-dimer PT 10.2 sec (9.0-12.0) 04/19/22 19:55 INR 0.9 (<1.2) 04/19/22 19:55 Abnormal lab findings: Abnormal Labs 04/19/22 04/19/22 19:24 19:55 WBC 12.2 H RBC 3.80 L MCV 103.2 H Neutrophils # 9.2 H Chloride 96 L Carbon Dioxide 37 H BUN 37 H Glucose 120 H Alkaline Phosphatase 211 H Albumin 3.2 L - Diagnostic Findings Chest x-ray: image reviewed Assessment and Plan Plan: Acute tracheal bronchitis/questionable right lower lobe pneumonia, currently under investigation. The patient could have also potentially had bacterial/chemical aspiration. The patient has some interval worsening and oxygenation and some increased shortness of breath and the patient is currently on 3 L O2, hospitalized for a possibility of a pneumonia. 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 Chronic dysphagia and the patient has enteral feeding for nutritional support via PEG tube Multiple myeloma smoldering face History of CVA, ambulate with the help of a cane History of fracture of the iliac crest History of recurrent pneumonias History of atrial flutter There is history of pseudomonal tracheal bronchitis/pneumonia Plan collect Gram stain and culture of the sputum Continue Levaquin for now, with a possibility of adjusting the patient antibiotics once cultures are available. Aspiration precautions. Continue enteral feeding for nutritional support Resume all medications Monitor oxygenation Continue bronchodilators and steroids We'll continue to follow
[2022-04-20] MEDS: SODIUM CHLORIDE 0.9% 1,000 ML IV SCH ×2 (15:29→18:56)
[2022-04-20] MEDS: methylPREDNISolone SOD SUCCI 40 MG/ML 1 ML VIAL IV SCH (15:30)
[2022-04-20] MEDS: ENOXAPARIN 40 MG/0.4 ML SYRINGE SQ SCH (15:31)
[2022-04-20] MEDS: LEVOFLOXACIN 750 MG TAB PO SCH (21:50)
[2022-04-21] MEDS: methylPREDNISolone SOD SUCCI 40 MG/ML 1 ML VIAL IV SCH ×3 (00:06→16:51)
[2022-04-21] MEDS: SODIUM CHLORIDE 0.9% 1,000 ML IV SCH ×2 (04:31→11:54)
[2022-04-21] MEDS: ENOXAPARIN 40 MG/0.4 ML SYRINGE SQ SCH (07:23)
[2022-04-21] MEDS: LEVOFLOXACIN 750 MG TAB PO SCH (07:24)
[2022-04-21] MEDS: LORATADINE-PSEUDOEPH 5-120 MG 1 EACH TAB.ER.12H PO SCH ×2 (07:24→23:15)
[2022-04-21] MEDS: METOPROLOL TARTRATE 12.5 MG TAB PO SCH (07:24)
[2022-04-21 08:41] LABS: HCT 35.1 % (39.6-50.0); HGB 11.2 g/dL (13.0-17.0); MCHC 31.9 g/dL (32.0-37.0); MCV 109.7 fL (80.0-97.0); Mean Platelet Volume 11.9 fL (9.5-12.2); NRBC Per 100 WBC 0 /100 WBCS (0.0-0.0); Platelet Count 244 X 10*3/uL (140-440); RDW 13.2 % (11.5-14.5); WBC 12.62 X 10*3/uL (4.50-10.00)
[2022-04-21] MEDS: FORMOTEROL FUMARATE 20 MCG/2 ML NEBU INHALATION SCH ×2 (08:47→20:08)
[2022-04-21] MEDS: BUDESONIDE 1 MG/2 ML NEBU INHALATION SCH ×2 (08:47→20:09)
[2022-04-21] MEDS: IPRATROPIUM-ALBUTEROL 3 ML NEB INHALATION PRN ×4 (08:48→20:09)
[2022-04-21] MEDS ORDERED: ASPIRIN 81 MG PO SCH (09:00)
[2022-04-21] MEDS ORDERED: LIDOCAINE 2% INJ 20 MG/ML (2 ML VIAL) ONE (09:30)
[2022-04-21] MEDS ORDERED: PROPOFOL 10 MG/ML 20 ML VIAL IV ONE (09:30)
[2022-04-21] MEDS ORDERED: IV FLUID CONTINUATION 1,000 ML IV ONE (09:34)
--- NOTE | 2022-04-21 09:46 | P.GSCN ---
History of Present Illness Consult date: 04/21/22 Reason for Consult: GI bleed History of present illness: 77-year-old male has a PEG tube in place for the last 2 years or so. Came in recently to have the PEG tube replaced but apparently the decision was made to leave it alone for now. He came in with shortness of breath. This morning however he was noted to have blood around the PEG tube and blood being aspirated from the gastrostomy tube along with some coffee-ground emesis. We were consulted for upper endoscopy. Denies pain. He was on Lovenox. Review of Systems The patient denies any acute changes in vision or hearing, no dysphagia or odynophagia, no dysuria or hematuria, no headache, no runny nose, no rectal bleeding or melena, no unexplained weight loss Past Medical History Past Medical History: Atrial Fibrillation, Blood Disorder, Cancer, COPD, CVA/TIA, GERD/Reflux, Pneumonia, Prostate Disorder, Rheumatoid Arthritis (RA), Vascular Disorder Additional Past Medical History / Comment(s): Facial onset sensory motor neuropathy (FOSMN) causes L vocal cord paralysis, R vocal cord partial paralysis, L upper palate partial paralysis, dysphagia,face/hand muscle wasting and weakness., has peg tube, hx:aspiration pneumonia., Phillips's esophagus, Hx of possible CVA., BPH., multiple myeloma , home oxygen at 2L/NC as needed , abdominal aortic aneurysm, rheumatoid arthritis,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 states fluid filled area on his elbow . History of Any Multi-Drug Resistant Organisms: None Reported Past Surgical History: Appendectomy, Hernia Repair, Orthopedic Surgery, Tonsillectomy Additional Past Surgical History / Comment(s): Field implant in throat, peg tube, EGDs, colonoscopy, R inguinal hernia, L foot bunionectomy, hemorrhoidectomy, L ring trigger finger release, nasal reconstruction, vocal cord surgery, cataracts/lens implants. fx left pelvis, PEG TUBE Past Anesthesia/Blood Transfusion Reactions: No Reported Reaction Additional Past Anesthesia/Blood Transfusion Reaction / Comm: PARALYZED VOCAL CHORDS. Pt has received blood in past without reaction. Past Psychological History: No Psychological Hx Reported Additional Psychological History / Comment(s): . Smoking Status: Former smoker Past Alcohol Use History: None Reported Additional Past Alcohol Use History / Comment(s): Patient started smoking 1961 and quit in 1971-smoked 1 ppd. Past Drug Use History: None Reported - Past Family History Sister(s) Additional Family Medical History / Comment(s): passed colon CA Brother(s) Additional Family Medical History / Comment(s): sarcidosis Mother Family Medical History: COPD Additional Family Medical History / Comment(s): lung CA Son(s) Family Medical History: Hypertension Additional Family Medical History / Comment(s): lymphoma, sarcoidosis Father Family Medical History: No Reported History Additional Family Medical History / Comment(s): Father was healthy Medications and Allergies Home Medications Medication Instructions Recorded Confirmed Type Fluticasone/Vilanterol [Breo 1 puff INHALATION RT-DAILY 10/24/18 04/19/22 History Ellipta 200-25 Mcg Inhaler] Albuterol Inhaler [Ventolin Hfa 1 - 2 puff INHALATION RT-Q6H PRN 11/06/18 04/19/22 History Inhaler] Ipratropium-Albuterol Nebulize 3 ml INHALATION RT-QID PRN 11/06/18 04/19/22 History [Duoneb 0.5 mg-3 mg/3 ml Soln] Metoprolol Tartrate [Lopressor] 12.5 mg PO DAILY 12/26/18 04/19/22 History Loratadine-Pseudoeph 10-240 mg 1 tab PO DAILY 03/14/19 04/19/22 History [Claritin-D 24 Hr] Aspirin [Adult Low Dose Aspirin EC] 81 mg PO MOWEFR 04/16/22 04/19/22 History Gabapentin 300 mg PO HS PRN 04/16/22 04/19/22 History Ramelteon 8 mg PO HS PRN 04/16/22 04/19/22 History Ibuprofen [Motrin Ib] 400 mg PO Q8H PRN 04/19/22 04/19/22 History guaiFENesin [Mucinex] 600 mg PO BID PRN 04/19/22 04/19/22 History Allergies Allergy/AdvReac Type Severity Reaction Status Date / Time Penicillins Allergy Itching/David Verified 04/19/22 21:00 h piperacillin [From Zosyn] Allergy Itching Verified 04/19/22 21:00 Sulfa (Sulfonamide Allergy Rash/Hives Verified 04/19/22 21:00 Antibiotics) tazobactam [From Zosyn] Allergy Itching Verified 04/19/22 21:00 Surgical - Exam Vital Signs Temp Pulse Resp BP Pulse Ox 99.0 F 94 22 122/102 91 L 04/19/22 19:24 04/19/22 19:24 04/19/22 19:24 04/19/22 19:24 04/19/22 19:24 Physical exam: General: Well-developed, malnourished HEENT: Normocephalic, sclerae nonicteric Abdomen: Nontender, nondistended, PEG tube in place Extremities: No edema Neuro: Alert and oriented Results - Labs 04/21/22 04:42 04/19/22 19:55 Abnormal Lab Results - Last 24 Hours (Table) 04/21/22 Range/Units 04:42 WBC 12.62 H (4.50-10.00) X 10*3/uL RBC 3.20 L (4.40-5.60) X 10*6/uL Hgb 11.2 L (13.0-17.0) g/dL Hct 35.1 L (39.6-50.0) % MCV 109.7 H (80.0-97.0) fL MCH 35.0 H (27.0-32.0) pg MCHC 31.9 L (32.0-37.0) g/dL Microbiology - Last 24 Hours (Table) 04/20/22 08:00 Gram Stain - Preliminary Sputum Sputum Culture - Preliminary 04/19/22 21:54 Blood Culture - Preliminary Blood No Growth after 24 hours 04/19/22 19:55 Blood Culture - Preliminary Blood No Growth after 24 hours Assessment and Plan (1) GI bleed Narrative/Plan: Will proceed with upper endoscopy at this time. Risks of bleeding, infection, possible need for further intervention or PEG tube removal/replacement reviewed. He understands and wishes to proceed. Current Visit: No Status: Acute Code(s): K92.2 - GASTROINTESTINAL HEMORRHAGE, UNSPECIFIED SNOMED Code(s): 95930202
[2022-04-21] MEDS ORDERED: SODIUM CHLORIDE 0.9% 500 ML 500 ML IV ONE (10:06)
--- NOTE | 2022-04-21 10:09 | P.PCN ---
Date of Procedure: 04/21/22 Procedure(s) Performed: Preoperative Dx: Upper GI bleed Postoperative Dx: Esophagitis, small hiatal hernia, PEG tube without visible abnormalities Procedure: EGD with Bx Anesthesia: Sedation Endoscopist: Dr. Dewey Specimens: Esophagus Endoscopic Procedure: The patient was on the endoscopy table in the left decubitus position. The Olympus gastroscope was inserted into the oropharynx and passed under direct visualization to the region of the third portion of the duodenum. From that point the scope was slowly withdrawn inspecting all surfaces carefully. There were no neoplastic inflammatory or polypoid lesions throughout the duodenum. The pylorus was widely patent. There was no blood present within the stomach or duodenum. The stomach was carefully inspected. There was minimal gastritis present. Retroflexion revealed a small hiatal hernia. The patient's PEG tube is in place. The bolster was loosened and the PEG tube was advanced so I could see beneath the polyp of the PEG tube. There was no visible inflammatory changes present there. No signs of erosion. The scope was withdrawn into the esophagus. The distal 4 cm of esophagus examined demonstrated circumferential esophagitis. This was superficially erosive. The remainder the esophagus was normal. The patient was then taken to the recovery room in stable condition per anesthesia guidelines. Recommendations: Continue antiacid therapy. May resume tube feeds. Add Carafate. Hold Lovenox for now.
[2022-04-21] MEDS: PANTOPRAZOLE 40 MG/10 ML VIAL IVP SCH ×2 (11:52→23:14)
[2022-04-21] MEDS: SUCRALFATE 1 GM TAB PO SCH ×2 (11:52→16:51)
--- NOTE | 2022-04-21 15:27 | P.PN ---
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 The patient also has right hemidiaphragmatic paralysis, unilateral completed vocal cord paralysis and the patient has had chronic dysphagia and the patient receives active feeding for nutritional support. He is also known to have COPD maintained on a combination of Breo /Combivent on an as-needed basis. The patient also has suffered a CVA and the patient ambulate with the help of a cane. He has history of multiple myeloma, smoldering phase and the patient has followed up locally and [facility]. No reported history of amyloidosis. He is known to have chronic atrial flutter and he is demented on Lopressor for rate control, no anticoagulants. The patient came into the hospital because of increased shortness of breath and sudden onset cough and congestion. Denies having any aspiration. Noted the patient receives Jevity through enteral feeding and nutritional support is currently afebrile. He is typically on 2 L and currently is on 3 L. The patient was admitted to the floor 0.2 hemoglobin 13.1. BNP is at 37 with a creatinine of 0.67 and his omeprazole 42. Troponins are negative. COVID 19 testing was negative. Influenza screen was negative. The chest x-ray showing chronic elevation of right hemidiaphragm with some limited ate lectasis/infiltrate the right lung base. Previous sputum samples that showed pseudomonas and Serratia. Pseudomonal growth was more than a year ago. Currently, the patient is on Levaquin 750 mg by mouth daily. Patient was reevaluated today on 04/21/22, feeling a bit better, patient is known to have history of neurodegenerative disorder with chronic hemidiaphragm paralysis, vocal cord paralysis, and chronic dysphagia. He was seen by Dr. Magdaleno yesterday for possible right lower lobe pneumonia, patient was treated with Levaquin because in the past he had history of Pseudomonas and Serratia infection in the sputum. Chest x-ray showed minimal atelectasis, questionable infiltrate in the right lower lobe. Patient underwent EGD by Dr. honeycutt today, this was done for upper GI bleeding patient was found to have esophagitis, small hiatal hernia . CBC today is relatively unremarkable W status will 0.6 patient tested negative for COVID-19, influenza a and influenza B. Patient is on 2 L nasal cannula O2 sats is 91% is afebrile with a temp of 98, blood pressure is normal. Objective - Vital Signs Vital signs: Vital Signs Temp 98.1 F 04/21/22 14:00 Pulse 80 04/21/22 14:00 Resp 17 04/21/22 14:00 BP 126/69 04/21/22 14:00 Pulse Ox 91 L 04/21/22 14:00 FiO2 Intake & Output 04/20/22 04/21/22 04/21/22 18:59 06:59 18:59 Intake Total 30 1285 Output Total 240 Balance -210 1285 Weight 49.5 kg 49.5 kg Intake: IV 100 Tube Feeding 1185 Other 30 Output: Gastric Drainage 240 Other: Voiding Method Urinal Urinal - Exam Physical Exam: Revealed a 77-year-old white male on 2 L nasal cannula, in no distress, noted to have a hoarse voice. Head: Atraumatic, normocephalic. HEENT:[Neck is supple.] [No neck masses.] [No thyromegaly.] [No JVD.] Chest: Diminished breath sounds at the bases especially at the right base no crackles or rhonchi or wheezes Cardiac Exam: [Normal S1 and S2, no S3 gallop, no murmur.] Abdomen: [Soft, nontender, no megaly, no rebound, no guarding, normal bowel sounds.] Extremities: [No clubbing, no edema, no cyanosis.] Neurological Exam: Facial weakness noted, left side, muscle weakness patient has assistive device uses a walker. Psychiatric: Normal mood affect and normal mental status exam. Skin: No rashes - Labs CBC & Chem 7: 04/21/22 04:42 04/19/22 19:55 Labs: Abnormal Lab Results - Last 24 Hours (Table) 04/21/22 Range/Units 04:42 WBC 12.62 H (4.50-10.00) X 10*3/uL RBC 3.20 L (4.40-5.60) X 10*6/uL Hgb 11.2 L (13.0-17.0) g/dL Hct 35.1 L (39.6-50.0) % MCV 109.7 H (80.0-97.0) fL MCH 35.0 H (27.0-32.0) pg MCHC 31.9 L (32.0-37.0) g/dL Microbiology - Last 24 Hours (Table) 04/20/22 08:00 Gram Stain - Preliminary Sputum Sputum Culture - Preliminary 04/19/22 21:54 Blood Culture - Preliminary Blood No Growth after 24 hours 04/19/22 19:55 Blood Culture - Preliminary Blood No Growth after 24 hours Assessment and Plan Assessment: Impression: Acute tracheobronchitis, possible right lower lobe pneumonia Acute on chronic hypoxic respiratory failure Right hemidiaphragm paralysis Unilateral vocal cord paralysis Chronic dysphagia Smoldering multiple myeloma history of CVA History of the iliac crest fracture History of recurrent pneumonia History of atrial flutter History of pseudomonal tracheobronchitis. Recommendation: Continue Levaquin Continue aspiration precautions Continue enteral feeding/PEG tube in place Continue bronchodilators and steroids, patient is on methylprednisolone 40 mg IV push every 8 Continue pantoprazole 40 mg IV push twice a day We will continue to follow Time with Patient: Less than 30
--- NOTE | 2022-04-21 19:54 | P.PN ---
Progress Note - Text Progress Note Date: 04/21/22 Chief Complaint: Congested cough This is a 77-year-old patient, follows Dr. Harish Matthews. 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 Chronic stable medical conditions include chronic dysphagia may occasionally take a pill by mouth, PEG tube feeding takes 5 cans of Jevity a day, GERD, multiple myeloma, COPD, left vocal cord paralysis, partial right vocal cord paralysis, balance esophagitis, home oxygen 2 L. Does use a 4 wheeled walker. Lives with his . Patient presents with 3 days of increasing cough greenish yellow sputum thick. Increasing short of breath and low-grade fever tired rundown. Admitted with pneumonia. Started on Levaquin. Also wheezing and short of breath. Admitted with pneumonia, COPD exacerbation. April 21: Overnight patient started having coffee-ground emesis. From his PEG tube large amount of dark aspirate possibly bloody obtained. This morning patient was taken down with EGD found to have esophagitis. There was some drop in hemoglobin too Active Medications Acetaminophen (Acetaminophen Tab 325 Mg Tab) 650 mg PO Q6HR PRN PRN Reason: Mild Pain or Fever > 100.5 Albuterol/Ipratropium (Ipratropium-Albuterol 3 Ml Neb) 3 ml INHALATION RT-Q4H PRN PRN Reason: shortness of breath Last Admin: 04/21/22 16:39 Dose: 3 ml Budesonide (Budesonide 1 Mg/2 Ml Nebu) 1 mg INHALATION RT-BID [facility]ILYN Last Admin: 04/21/22 08:47 Dose: 1 mg Formoterol Fumarate (Formoterol Fumarate 20 Mcg/2 Ml Nebu) 20 mcg INHALATION RT-BID MARILYN Last Admin: 04/21/22 08:47 Dose: 20 mcg Gabapentin (Gabapentin 300 Mg Cap) 300 mg PO HS PRN PRN Reason: Pain Guaifenesin (Guaifenesin 600 Mg Tablet.Er) 600 mg PO BID PRN PRN Reason: COUGHING Sodium Chloride (Saline 0.9%) 1,000 mls @ 100 mls/hr IV .Q10H MARILYN Last Admin: 04/21/22 11:54 Dose: 100 mls/hr Levofloxacin 750 mg/ IV (Solution) 150 mls @ 100 mls/hr IVPB Q24H [facility]; Protocol Lactulose (Lactulose 20 Gm/30 Ml Cup) 20 gm PO DAILY PRN PRN Reason: Constipation Levofloxacin (Levofloxacin 750 Mg Tab) 750 mg PO DAILY [facility]; Protocol Stop: 04/23/22 09:01 Last Admin: 04/21/22 07:24 Dose: Not Given Loratadine/Pseudoephedrine Sulfate (Loratadine-Pseudoeph 5-120 Mg 1 Each Tab.Er.12h) 1 each PO BID [facility] Last Admin: 04/21/22 07:24 Dose: Not Given Lorazepam (Lorazepam 0.5 Mg Tab) 0.5 mg PO Q6HR PRN PRN Reason: Anxiety Methylprednisolone Sodium Succinate (Methylprednisolone Sod Succi 40 Mg/Ml 1 Ml Vial) 40 mg IV Q8HR [facility] Last Admin: 04/21/22 16:51 Dose: 40 mg Metoprolol Tartrate (Metoprolol Tartrate 12.5 Mg Tab) 12.5 mg PO DAILY [facility] Last Admin: 04/21/22 07:24 Dose: Not Given Miscellaneous Information (Pneumonia Protocol Utilized 1 Each Misc) 1 each PO ONCE PRN PRN Reason: Per Protocol Naloxone HCl (Naloxone 0.4 Mg/Ml 1 Ml Vial) 0.2 mg IV Q2M PRN PRN Reason: Opioid Reversal Ondansetron HCl (Ondansetron 4 Mg/2 Ml Vial) 4 mg IVP Q8HR PRN PRN Reason: Nausea And Vomiting Pantoprazole Sodium (Pantoprazole 40 Mg/10 Ml Vial) 40 mg IVP BID [facility] Last Admin: 04/21/22 11:52 Dose: 40 mg Sucralfate (Sucralfate 1 Gm Tab) 1 gm PO AC-TID [facility] Last Admin: 04/21/22 16:51 Dose: 1 gm Temazepam (Temazepam 15 Mg Cap) 15 mg PO HS PRN PRN Reason: SLEEP Past medical history to include: Atrial fibrillation, COPD, stroke, GERD, prostatitis, rheumatoid arthritis, left vocal cord for last paralysis, right vocal cord partial paralysis, left upper palate partial paralysis, dysphagia midface had muscle wasting and weakness, PEG tube, [place] esophagus, BPH, multiple myeloma, home oxygen 2 L, abdominal aortic aneurysm, rheumatoid arthritis, pseudocyst of pancreas, Social history: Lives with his . Does use a 4 wheel walker. 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 Patient smoked for 10 years 1 pack a day stopped in 1971. Physical examination: VITAL SIGNS: 98.1, 80, 17, 126/69, 91% on 2 L GENERAL: Reclining in bed, tired awake EYES: Pupils equal. Conjunctiva normal. HEENT: External appearance of nose and ears normal, oral cavity grossly normal. NECK: JVD not raised; masses not palpable. HEART: First and second heart sounds are normal; no edema. LUNGS: Respiratory rate increased; decreased breath sounds basal crackles course. ABDOMEN: Soft, mild tenderness, liver spleen not palpable, no masses palpable. PEG tube PSYCH: Alert and oriented x3; mood and affect anxiousl. MUSCULOSKELETAL:No Clubbing/cyanosis;muscles-grossly intact. Muscle muscle mass NEUROLOGICAL: [Cranial nerves grossly intact; no facial asymmetry, decreased power in all 4 limbs INVESTIGATIONS, reviewed in the clinical context: April 21: WBC 12.6 hemoglobin 11.2 platelets 244 WBC 12.2 hemoglobin 13.1 platelets 235 sodium 142 potassium 3.8 BUN 37 creatinine 0.67 COVID 19/influenza type A/type B: Not detected Albumin 3.2 EKG tracing personally reviewed by me: Normal sinus rhythm. Chest x-ray film personally reviewed by me: Elevation in right diaphragm. Assessment and plan: -Pneumonia suspected gram-negative organism Levaquin. Mucinex -Acute COPD exacerbation and a previous smoker DuoNeb, nebulized Pulmicort, Perforomist -Acute upper GI bleed. With coffee-ground emesis and large aspirate from the PEG tube. Secondary to esophagitis Dr. Anderson from surgery consulted. EGD today. -Severe esophagitis PPI -Chronic medical debility Fall precautions -Chronic gait dysfunction, at her baseline uses a 4 wheeled walker -Chronic hypoxic respiratory failure from underlying COPD 2 L oxygen at home -Mild protein calorie malnutrition. 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 DuoNeb. Perforomist. Pulmicort. Resume home medications. Nothing by mouth. Start clear liquids tomorrow.
[2022-04-21] MEDS: LEVOFLOXACIN 750MG-D5W PMX 750 MG in DEXTROSE/WATER 1 150ML.BAG IVPB SCH (23:14)
[2022-04-22] MEDS: SODIUM CHLORIDE 0.9% 1,000 ML IV SCH ×3 (00:48→16:49)
[2022-04-22] MEDS: methylPREDNISolone SOD SUCCI 40 MG/ML 1 ML VIAL IV SCH ×3 (01:06→16:47)
[2022-04-22] MEDS: FORMOTEROL FUMARATE 20 MCG/2 ML NEBU INHALATION SCH ×2 (07:47→21:07)
[2022-04-22] MEDS: BUDESONIDE 1 MG/2 ML NEBU INHALATION SCH ×2 (07:47→21:07)
[2022-04-22] MEDS: IPRATROPIUM-ALBUTEROL 3 ML NEB INHALATION PRN ×4 (07:47→21:07)
[2022-04-22 08:04] LABS: Basophils % (A) 0 %; Eosinophils % (A) 0 %; HCT 35.1 % (39.0-53.0); HGB 11.3 gm/dL (13.0-17.5); Lymphocytes # (A) 0.5 k/uL (1.0-4.8); Lymphocytes % (A) 4 %; MCH 34.1 pg (25.0-35.0); MCV 106.6 fL (80.0-100.0); Macrocytosis Moderate; Mean Platelet Volume 10.5; Monocytes # (A) 0.3 k/uL (0-1.0); Monocytes % (A) 2 %; Neutrophils # (A) 11.2 k/uL (1.3-7.7); Neutrophils % (A) 93 %; Platelet Count 211 k/uL (150-450); RDW 12.8 % (11.5-15.5); WBC 12.1 k/uL (3.8-10.6)
[2022-04-22 08:10] LABS: African American GFR (CKD) >90 (>60 ml/min/1.73 sqM); Anion Gap 7 mmol/L; Blood Urea Nitrogen 33 mg/dL (9-20); Calcium 8.5 mg/dL (8.4-10.2); Carbon Dioxide 28 mmol/L (22-30); Chloride 106 mmol/L (98-107); Glucose 113 mg/dL (74-99); Non-African American GFR(CKD) >90 (>60 ml/min/1.73 sqM); Potassium 4.3 mmol/L (3.5-5.1); Sodium 141 mmol/L (137-145)
[2022-04-22] MEDS: SUCRALFATE 1 GM TAB PO SCH (09:13)
[2022-04-22] MEDS: METOPROLOL TARTRATE 12.5 MG TAB PO SCH (09:13)
[2022-04-22] MEDS: LORATADINE-PSEUDOEPH 5-120 MG 1 EACH TAB.ER.12H PO SCH ×2 (09:14→20:54)
[2022-04-22] MEDS: PANTOPRAZOLE 40 MG/10 ML VIAL IVP SCH ×2 (09:14→21:03)
--- NOTE | 2022-04-22 12:51 | P.PN ---
Subjective Progress Note Date: 04/22/22 CHIEF COMPLAINT: Bleeding from PEG tube site HISTORY OF PRESENT ILLNESS: Patient is status post EGD revealing esophagitis, small hiatal hernia, PEG tube without visible abnormalities. Patient is tolerating tube feeds. He's had no further bleeding from the PEG tube. He denies any nausea or vomiting. Denies any abdominal pain. Afebrile. Hemoglobin stable at 11.3 white count 12.1. Patient also being treated for pneumonia and COPD exacerbation PHYSICAL EXAM: VITAL SIGNS: Reviewed. GENERAL: Well-developed in no acute distress. HEENT: No sclera icterus. Extraocular movements grossly intact. Moist buccal mucosa. Head is atraumatic, normocephalic. ABDOMEN: Soft. Nondistended. Nontender. PEG tube site clean dry and intact. No blood noted in the PEG tubing NEUROLOGIC: Alert and oriented. Cranial nerves II through XII grossly intact. ASSESSMENT: 1. Status post EGD revealing esophagitis, small hiatal hernia and PEG tube without visible abnormality. PLAN: -Continue IV Protonix -Continue tube feedings -Continue supportive care -Continue to hold Lovenox Physician Senior Account Manager note has been reviewed by physician. Signing provider agrees with the documented findings, assessment, and plan of care. I have personally seen and examined the patient, reviewed the PROFESSOR OF VEGETABLE SCIENCE /PAs history, exam and MDM and agree with the assessment and plan as written. Based on total visit time, I have performed more than 50% of the visit. As above: Patient doing well today. No further bleeding. Continue tube feeds. We'll sign off. Please call if needed. Objective - Vital Signs Vital signs: Vital Signs Temp 98.2 F 04/22/22 07:46 Pulse 69 04/22/22 11:22 Resp 17 04/22/22 07:46 BP 178/98 04/22/22 07:46 Pulse Ox 96 04/22/22 10:30 FiO2 Intake & Output 04/21/22 04/22/22 04/22/22 18:59 06:59 18:59 Intake Total 1285 Output Total 300 Balance 1285 -300 Weight 49.5 kg 49 kg Intake: IV 100 Tube Feeding 1185 Output: Urine 300 Other: Voiding Method Urinal Toilet # Voids 3 # Bowel Movements 1 - Labs CBC & Chem 7: 04/22/22 07:10 04/22/22 07:10 Labs: Abnormal Lab Results - Last 24 Hours (Table) 04/22/22 04/22/22 Range/Units 07:10 07:10 WBC 12.1 H (3.8-10.6) k/uL RBC 3.30 L (4.30-5.90) m/uL Hgb 11.3 L (13.0-17.5) gm/dL Hct 35.1 L (39.0-53.0) % MCV 106.6 H (80.0-100.0) fL Neutrophils # 11.2 H (1.3-7.7) k/uL Lymphocytes # 0.5 L (1.0-4.8) k/uL BUN 33 H (9-20) mg/dL Creatinine 0.57 L (0.66-1.25) mg/dL Glucose 113 H (74-99) mg/dL Microbiology - Last 24 Hours (Table) 04/20/22 08:00 Gram Stain - Final Sputum Sputum Culture - Final 04/19/22 21:54 Blood Culture - Preliminary Blood No Growth after 48 hours 04/19/22 19:55 Blood Culture - Preliminary Blood No Growth after 48 hours
--- NOTE | 2022-04-22 13:15 | P.PN ---
Progress Note - Text Progress Note Date: 04/22/22 Chief Complaint: Congested cough This is a 77-year-old patient, follows Dr. Harish Matthews. Program Control Analyst Dr. Magdaleno. Chronic stable medical conditions include chronic dysphagia may occasionally take a pill by mouth, PEG tube feeding takes 5 cans of Jevity a day, GERD, multiple myeloma, COPD, left vocal cord paralysis, partial right vocal cord paralysis, balance esophagitis, home oxygen 2 L. Does use a 4 wheeled walker. Lives with his . Patient presents with 3 days of increasing cough greenish yellow sputum thick. Increasing short of breath and low-grade fever tired rundown. Admitted with pneumonia. Started on Levaquin. Also wheezing and short of breath. Admitted with pneumonia, COPD exacerbation. April 21: Overnight patient started having coffee-ground emesis. From his PEG tube large amount of dark aspirate possibly bloody obtained. This morning patient was taken down with EGD found to have esophagitis. There was some drop in hemoglobin too April 22: Coughing up significant sputum. Sent off for Gram stain and culture. Seen by speech therapist. Made nothing by mouth. Discussed with patient. On IV Levaquin. Patient's relative had previous recurrent aspirations. And therefore, strict nothing by mouth Active Medications Acetaminophen (Acetaminophen Tab 325 Mg Tab) 650 mg PO Q6HR PRN PRN Reason: Mild Pain or Fever > 100.5 Albuterol/Ipratropium (Ipratropium-Albuterol 3 Ml Neb) 3 ml INHALATION RT-Q4H PRN PRN Reason: shortness of breath Last Admin: 04/22/22 11:13 Dose: 3 ml Budesonide (Budesonide 1 Mg/2 Ml Nebu) 1 mg INHALATION RT-BID MARILYN Last Admin: 04/22/22 07:47 Dose: 1 mg Formoterol Fumarate (Formoterol Fumarate 20 Mcg/2 Ml Nebu) 20 mcg INHALATION RT-BID [facility]ILYN Last Admin: 04/22/22 07:47 Dose: 20 mcg Gabapentin (Gabapentin 300 Mg Cap) 300 mg PO HS PRN PRN Reason: Pain Guaifenesin (Guaifenesin 600 Mg Tablet.Er) 600 mg PO BID PRN PRN Reason: COUGHING Sodium Chloride (Saline 0.9%) 1,000 mls @ 100 mls/hr IV .Q10H [facility] Last Admin: 04/22/22 09:14 Dose: 100 mls/hr Levofloxacin 750 mg/ IV (Solution) 150 mls @ 100 mls/hr IVPB Q24H [facility]; Protocol Last Admin: 04/21/22 23:14 Dose: 100 mls/hr Lactulose (Lactulose 20 Gm/30 Ml Cup) 20 gm PO DAILY PRN PRN Reason: Constipation Loratadine/Pseudoephedrine Sulfate (Loratadine-Pseudoeph 5-120 Mg 1 Each Tab.Er.12h) 1 each PO BID [facility] Last Admin: 04/22/22 09:14 Dose: 1 each Lorazepam (Lorazepam 0.5 Mg Tab) 0.5 mg PO Q6HR PRN PRN Reason: Anxiety Methylprednisolone Sodium Succinate (Methylprednisolone Sod Succi 40 Mg/Ml 1 Ml Vial) 40 mg IV Q8HR [facility] Last Admin: 04/22/22 09:13 Dose: 40 mg Metoprolol Tartrate (Metoprolol Tartrate 12.5 Mg Tab) 12.5 mg PO DAILY [facility] Last Admin: 04/22/22 09:13 Dose: 12.5 mg Miscellaneous Information (Pneumonia Protocol Utilized 1 Each Misc) 1 each PO ONCE PRN PRN Reason: Per Protocol Naloxone HCl (Naloxone 0.4 Mg/Ml 1 Ml Vial) 0.2 mg IV Q2M PRN PRN Reason: Opioid Reversal Ondansetron HCl (Ondansetron 4 Mg/2 Ml Vial) 4 mg IVP Q8HR PRN PRN Reason: Nausea And Vomiting Pantoprazole Sodium (Pantoprazole 40 Mg/10 Ml Vial) 40 mg IVP BID [facility] Last Admin: 04/22/22 09:14 Dose: 40 mg Temazepam (Temazepam 15 Mg Cap) 15 mg PO HS PRN PRN Reason: SLEEP Past medical history to include: Atrial fibrillation, COPD, stroke, GERD, prostatitis, rheumatoid arthritis, left vocal cord for last paralysis, right vocal cord partial paralysis, left upper palate partial paralysis, dysphagia midface had muscle wasting and weakness, PEG tube, [place] esophagus, BPH, multiple myeloma, home oxygen 2 L, abdominal aortic aneurysm, rheumatoid arthritis, pseudocyst of pancreas, Social history: Lives with his . Does use a 4 wheel walker. 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 Patient smoked for 10 years 1 pack a day stopped in 1971. Physical examination: VITAL SIGNS: 98.2, 70, 17, 170/98, 96% on 2 L GENERAL: Up in a chair, awake, tired EYES: Pupils equal. Conjunctiva normal. HEENT: External appearance of nose and ears normal, oral cavity grossly normal. NECK: JVD not raised; masses not palpable. HEART: First and second heart sounds are normal; no edema. LUNGS: Respiratory rate increased; decreased breath sounds basal crackles course. ABDOMEN: Soft, mild tenderness, liver spleen not palpable, no masses palpable. PEG tube PSYCH: Alert and oriented x3; mood and affect anxious MUSCULOSKELETAL:No Clubbing/cyanosis;muscles-grossly intact. Muscle muscle mass NEUROLOGICAL: [Cranial nerves grossly intact; no facial asymmetry, decreased power in all 4 limbs INVESTIGATIONS, reviewed in the clinical context: Sputum culture: Negative April 22: WBC 12.1 hemoglobin 11.3 potassium 4.3 creatinine 0.57 April 21: WBC 12.6 hemoglobin 11.2 platelets 244 WBC 12.2 hemoglobin 13.1 platelets 235 sodium 142 potassium 3.8 BUN 37 c reatinine 0.67 COVID 19/influenza type A/type B: Not detected Albumin 3.2 EKG tracing personally reviewed by me: Normal sinus rhythm. Chest x-ray film personally reviewed by me: Elevation in right diaphragm. Assessment and plan: -Pneumonia suspected gram-negative organism, suspected recurrent aspiration: Slow to respond Levaquin. Mucinex -Acute COPD exacerbation in a previous smoker DuoNeb, nebulized Pulmicort, Perforomist -Acute upper GI bleed. With coffee-ground emesis and large aspirate from the PEG tube. Secondary to esophagitis. Distal source of bleeding possible. Dr. Anderson EGD on April 21.. -Severe erosive esophagitis PPI -Chronic medical debility Fall precautions -Chronic gait dysfunction, at her baseline uses a 4 wheeled walker -Chronic hypoxic respiratory failure from underlying COPD 2 L oxygen at home -Mild protein calorie malnutrition. 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 DuoNeb. Perforomist. Pulmicort. Strict- Nothing by mouth. As per speech therapy. Discussed at length with the patient. Continue current medications.
--- NOTE | 2022-04-22 13:49 | P.PN ---
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 The patient also has right hemidiaphragmatic paralysis, unilateral completed vocal cord paralysis and the patient has had chronic dysphagia and the patient receives active feeding for nutritional support. He is also known to have COPD maintained on a combination of Breo /Combivent on an as-needed basis. The patient also has suffered a CVA and the patient ambulate with the help of a cane. He has history of multiple myeloma, smoldering phase and the patient has followed up locally and [facility]. No reported history of amyloidosis. He is known to have chronic atrial flutter and he is demented on Lopressor for rate control, no anticoagulants. The patient came into the hospital because of increased shortness of breath and sudden onset cough and congestion. Denies having any aspiration. Noted the patient receives Jevity through enteral feeding and nutritional support is currently afebrile. He is typically on 2 L and currently is on 3 L. The patient was admitted to the floor 0.2 hemoglobin 13.1. BNP is at 37 with a creatinine of 0.67 and his omeprazole 42. Troponins are negative. COVID 19 testing was negative. Influenza screen was negative. The chest x-ray showing chronic elevation of right hemidiaphragm with some limited atelectasis/infiltrate the right lung base. Previous sputum samples that showed pseudomonas and Serratia. Pseudomonal growth was more than a year ago. Currently, the patient is on Levaquin 750 mg by mouth daily. Patient was reevaluated today on 04/21/22, feeling a bit better, patient is known to have history of neurodegenerative disorder with chronic hemidiaphragm paralysis, vocal cord paralysis, and chronic dysphagia. He was seen by Dr. Magdaleno yesterday for possible right lower lobe pneumonia, patient was treated with Levaquin because in the past he had history of Pseudomonas and Serratia infection in the sputum. Chest x-ray showed minimal atelectasis, questionable infiltrate in the right lower lobe. Patient underwent EGD by Dr. honeycutt today, this was done for upper GI bleeding patient was found to have esophagitis, small hiatal hernia . CBC today is relatively unremarkable W status will 0.6 patient tested negative for COVID-19, influenza a and influenza B. Patient is on 2 L nasal cannula O2 sats is 91% is afebrile with a temp of 98, blood pressure is normal. The patient is seen today 04/22/2022 in follow-up on the regular medical floor. He is currently resting comfortably in bed. Awake and alert in no acute dis tress. He did undergo EGD yesterday and was found to have esophagitis, small hiatal hernia, PEG tube without visible abnormalities. Blood cultures reveal no growth. Sputum culture revealed no growth. White count 12.1. Hemoglobin 11.3. Sodium 141. Potassium 4.3. BUN 33. Creatinine 0.57. He is continued on DuoNeb inhalations, Pulmicort and Perforomist inhalations, IV Solu-Medrol. He is maintaining O2 saturations in the mid 90s on 2 L/m per nasal cannula. Afebrile. Objective - Vital Signs Vital signs: Vital Signs Temp 98.2 F 04/22/22 07:46 Pulse 69 04/22/22 11:22 Resp 17 04/22/22 07:46 BP 178/98 04/22/22 07:46 Pulse Ox 96 04/22/22 10:30 FiO2 Intake & Output 04/21/22 04/22/22 04/22/22 18:59 06:59 18:59 Intake Total 1285 Output Total 300 Balance 1285 -300 Weight 49.5 kg 49 kg Intake: IV 100 Tube Feeding 1185 Output: Urine 300 Other: Voiding Method Urinal Toilet # Voids 3 # Bowel Movements 1 - Exam GENERAL EXAM: Alert, doesn't 77-year-old male patient, on 2 L nasal cannula, comfortable in no apparent distress. HEAD: Normocephalic. EYES: Normal reaction of pupils, equal size. NOSE: Clear with pink turbinates. THROAT: Hoarseness. No erythema or exudates. NECK: No masses, no JVD. CHEST: No chest wall deformity. LUNGS: Equal air entry with no crackles, wheeze, rhonchi or dullness. CVS: S1 and S2 normal with no audible murmur, regular rhythm. ABDOMEN: PEG tube exit site clean and dry. No hepatosplenomegaly, normal bowel sounds, no guarding or rigidity. SPINE: No scoliosis or deformity SKIN: No rashes CENTRAL NERVOUS SYSTEM: No focal deficits, tone is normal in all 4 extremities. EXTREMITIES: There is no peripheral edema. No clubbing, no cyanosis. Peripheral pulses are intact. - Labs CBC & Chem 7: 04/22/22 07:10 04/22/22 07:10 Labs: Abnormal Lab Results - Last 24 Hours (Table) 04/22/22 04/22/22 Range/Units 07:10 07:10 WBC 12.1 H (3.8-10.6) k/uL RBC 3.30 L (4.30-5.90) m/uL Hgb 11.3 L (13.0-17.5) gm/dL Hct 35.1 L (39.0-53.0) % MCV 106.6 H (80.0-100.0) fL Neutrophils # 11.2 H (1.3-7.7) k/uL Lymphocytes # 0.5 L (1.0-4.8) k/uL BUN 33 H (9-20) mg/dL Creatinine 0.57 L (0.66-1.25) mg/dL Glucose 113 H (74-99) mg/dL Microbiology - Last 24 Hours (Table) 04/20/22 08:00 Gram Stain - Final Sputum Sputum Culture - Final 04/19/22 21:54 Blood Culture - Preliminary Blood No Growth after 48 hours 04/19/22 19:55 Blood Culture - Preliminary Blood No Growth after 48 hours Assessment and Plan Assessment: Acute tracheal bronchitis/questionable right lower lobe pneumonia, currently under investigation. The patient could have also potentially had bacterial/chemical aspiration. Sputum cultures revealed no growth. EGD revealed esophagitis, small hiatal hernia, PEG tube without visible abnormalities. 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 Chronic dysphagia and the patient has enteral feeding for nutritional support via PEG tube Multiple myeloma History of CVA, ambulate with the help of a cane History of fracture of the iliac crest History of recurrent pneumonias History of atrial flutter There is history of pseudomonal tracheal bronchitis/pneumonia Plan: The patient was seen and evaluated Improved and on 2 L nasal cannula which is his home dose Recommend 10 days of antibiotic therapy Follow-up in the office in 1-2 weeks' I have personally seen and examined the patient, performed the documentation and the assessment and plan as written. Number of minutes spent on the visit: 10.
[2022-04-22] MEDS: LEVOFLOXACIN 750MG-D5W PMX 750 MG in DEXTROSE/WATER 1 150ML.BAG IVPB SCH (21:03)
[2022-04-23] MEDS: SODIUM CHLORIDE 0.9% 1,000 ML IV SCH ×2 (00:36→16:32)
[2022-04-23] MEDS: methylPREDNISolone SOD SUCCI 40 MG/ML 1 ML VIAL IV SCH ×2 (00:36→09:03)
[2022-04-23] MEDS: IPRATROPIUM-ALBUTEROL 3 ML NEB INHALATION PRN ×2 (07:05→21:44)
[2022-04-23] MEDS: BUDESONIDE 1 MG/2 ML NEBU INHALATION SCH ×2 (07:05→21:44)
[2022-04-23] MEDS: FORMOTEROL FUMARATE 20 MCG/2 ML NEBU INHALATION SCH ×2 (07:05→21:44)
[2022-04-23] MEDS: LORATADINE-PSEUDOEPH 5-120 MG 1 EACH TAB.ER.12H PO SCH ×2 (08:44→20:11)
[2022-04-23] MEDS: METOPROLOL TARTRATE 12.5 MG TAB PO SCH (09:03)
[2022-04-23] MEDS: PANTOPRAZOLE 40 MG/10 ML VIAL IVP SCH ×2 (09:03→20:09)
[2022-04-23 14:04] VITALS: BMI 15.5
--- NOTE | 2022-04-23 14:49 | P.PN ---
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 The patient also has right hemidiaphragmatic paralysis, unilateral completed vocal cord paralysis and the patient has had chronic dysphagia and the patient receives active feeding for nutritional support. He is also known to have COPD maintained on a combination of Breo /Combivent on an as-needed basis. The patient also has suffered a CVA and the patient ambulate with the help of a cane. He has history of multiple myeloma, smoldering phase and the patient has followed up locally and [facility]. No reported history of amyloidosis. He is known to have chronic atrial flutter and he is demented on Lopressor for rate control, no anticoagulants. The patient came into the hospital because of increased shortness of breath and sudden onset cough and congestion. Denies having any aspiration. Noted the patient receives Jevity through enteral feeding and nutritional support is currently afebrile. He is typically on 2 L and currently is on 3 L. The patient was admitted to the floor 0.2 hemoglobin 13.1. BNP is at 37 with a creatinine of 0.67 and his omeprazole 42. Troponins are negative. COVID 19 testing was negative. Influenza screen was negative. The chest x-ray showing chronic elevation of right hemidiaphragm with some limited atelectasis/infiltrate the right lung base. Previous sputum samples that showed pseudomonas and Serratia. Pseudomonal growth was more than a year ago. Currently, the patient is on Levaquin 750 mg by mouth daily. Patient was reevaluated today on 04/21/22, feeling a bit better, patient is known to have history of neurodegenerative disorder with chronic hemidiaphragm paralysis, vocal cord paralysis, and chronic dysphagia. He was seen by Dr. Magdaleno yesterday for possible right lower lobe pneumonia, patient was treated with Levaquin because in the past he had history of Pseudomonas and Serratia infection in the sputum. Chest x-ray showed minimal atelectasis, questionable infiltrate in the right lower lobe. Patient underwent EGD by Dr. honeycutt today, this was done for upper GI bleeding patient was found to have esophagitis, small hiatal hernia . CBC today is relatively unremarkable W status will 0.6 patient tested negative for COVID-19, influenza a and influenza B. Patient is on 2 L nasal cannula O2 sats is 91% is afebrile with a temp of 98, blood pressure is normal. The patient is seen today 04/22/2022 in follow-up on the regular medical floor. He is currently resting comfortably in bed. Awake and alert in no acute dis tress. He did undergo EGD yesterday and was found to have esophagitis, small hiatal hernia, PEG tube without visible abnormalities. Blood cultures reveal no growth. Sputum culture revealed no growth. White count 12.1. Hemoglobin 11.3. Sodium 141. Potassium 4.3. BUN 33. Creatinine 0.57. He is continued on DuoNeb inhalations, Pulmicort and Perforomist inhalations, IV Solu-Medrol. He is maintaining O2 saturations in the mid 90s on 2 L/m per nasal cannula. Afebrile. The patient is seen today 04/23/2022 in follow-up on the regular medical floor. He is sitting up in a chair at the bedside. Awake and alert in no acute distress. No worsening shortness of breath, cough or congestion. Blood cultures revealed no growth. Sputum culture revealed no growth. He is maintaining good O2 saturations in the mid 90s on 2 L/m per nasal cannula. Afebrile. He is continued on DuoNeb inhalations, Pulmicort and Perforomist inhalations, IV Solu-Medrol. Antibiotics in the form of Levaquin. Objective - Vital Signs Vital signs: Vital Signs Temp 98.2 F 04/23/22 13:51 Pulse 66 04/23/22 13:51 Resp 17 04/23/22 13:51 BP 159/87 04/23/22 13:51 Pulse Ox 95 04/23/22 13:51 FiO2 Intake & Output 04/22/22 04/23/22 04/23/22 18:59 06:59 18:59 Intake Total 580 1185 Balance 580 1185 Weight 49 kg Intake: Tube Feeding 480 1185 Other 100 Other: Voiding Method Toilet Indwelling Catheter Urinal - Exam GENERAL EXAM: Alert, very pleasant 77-year-old male, on 2 L nasal cannula, comfortable in no apparent distress. HEAD: Normocephalic. EYES: Normal reaction of pupils, equal size. NOSE: Clear with pink turbinates. THROAT: Hoarseness. No erythema or exudates. NECK: No masses, no JVD. CHEST: No chest wall deformity. LUNGS: Equal air entry with no crackles, wheeze, rhonchi or dullness. CVS: S1 and S2 normal with no audible murmur, regular rhythm. ABDOMEN: PEG tube exit site clean and dry. No hepatosplenomegaly, normal bowel sounds, no guarding or rigidity. SPINE: No scoliosis or deformity SKIN: No rashes CENTRAL NERVOUS SYSTEM: No focal deficits, tone is normal in all 4 extremities. EXTREMITIES: There is no peripheral edema. No clubbing, no cyanosis. Peripheral pulses are intact. - Labs CBC & Chem 7: 04/22/22 07:10 04/22/22 07:10 Labs: Microbiology - Last 24 Hours (Table) 04/19/22 21:54 Blood Culture - Preliminary Blood No Growth after 72 hours 04/19/22 19:55 Blood Culture - Preliminary Blood No Growth after 72 hours Assessment and Plan Assessment: Acute tracheal bronchitis/questionable right lower lobe pneumonia, currently under investigation. The patient could have also potentially had bacterial/chemical aspiration. Sputum cultures revealed no growth. EGD revealed esophagitis, small hiatal hernia, PEG tube without visible abnormalities. 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 Chronic dysphagia and the patient has enteral feeding for nutritional support via PEG tube Multiple myeloma History of CVA, ambulate with the help of a cane History of fracture of the iliac crest History of recurrent pneumonias History of atrial flutter There is history of pseudomonal tracheal bronchitis/pneumonia Plan: The patient was seen and evaluated Stable for discharge from the pulmonary standpoint Continue his home oxygen, bronchodilators Complete a steroid taper with a Medrol Dosepak Continue 5 more days of Levaquin Follow-up in the office in 1-2 weeks' I have personally seen and examined the patient, performed the documentation and the assessment and plan as written. Number of minutes spent on the visit: 10.
--- NOTE | 2022-04-23 20:02 | P.PN ---
Progress Note - Text Progress Note Date: 04/23/22 Chief Complaint: Congested cough This is a 77-year-old patient, follows Dr. Harish Matthews. Client Strategist Dr. Magdaleno. Chronic stable medical conditions include chronic dysphagia may occasionally take a pill by mouth, PEG tube feeding takes 5 cans of Jevity a day, GERD, multiple myeloma, COPD, left vocal cord paralysis, partial right vocal cord paralysis, balance esophagitis, home oxygen 2 L. Does use a 4 wheeled walker. Lives with his . Patient presents with 3 days of increasing cough greenish yellow sputum thick. Increasing short of breath and low-grade fever tired rundown. Admitted with pneumonia. Started on Levaquin. Also wheezing and short of breath. Admitted with pneumonia, COPD exacerbation. April 21: Overnight patient started having coffee-ground emesis. From his PEG tube large amount of dark aspirate possibly bloody obtained. This morning patient was taken down with EGD found to have esophagitis. There was some drop in hemoglobin too April 22: Coughing up significant sputum. Sent off for Gram stain and culture. Seen by speech therapist. Made nothing by mouth. Discussed with patient. On IV Levaquin. Likely had recurrent aspirations. And therefore, strict nothing by mouth April 23: Decrease in sputum production. Since becoming nothing by mouth. Tolerating tube feeding. No fever. Being changed over to by mouth Levaquin. Hopefully discharge tomorrow. Active Medications Acetaminophen (Acetaminophen Tab 325 Mg Tab) 650 mg PO Q6HR PRN PRN Reason: Mild Pain or Fever > 100.5 Albuterol/Ipratropium (Ipratropium-Albuterol 3 Ml Neb) 3 ml INHALATION RT-Q4H PRN PRN Reason: shortness of breath Last Admin: 04/23/22 07:05 Dose: 3 ml Budesonide (Budesonide 1 Mg/2 Ml Nebu) 1 mg INHALATION RT-BID MARILYN Last Admin: 04/23/22 07:05 Dose: 1 mg Formoterol Fumarate (Formoterol Fumarate 20 Mcg/2 Ml Nebu) 20 mcg INHALATION RT-BID MARILYN Last Admin: 04/23/22 07:05 Dose: 20 mcg Gabapentin (Gabapentin 300 Mg Cap) 300 mg PO HS PRN PRN Reason: Pain Guaifenesin (Guaifenesin 600 Mg Tablet.Er) 600 mg PO BID PRN PRN Reason: COUGHING Sodium Chloride (Saline 0.9%) 1,000 mls @ 100 mls/hr IV .Q10H [facility] Last Admin: 04/23/22 16:32 Dose: Not Given Lactulose (Lactulose 20 Gm/30 Ml Cup) 20 gm PO DAILY PRN PRN Reason: Constipation Levofloxacin (Levofloxacin 750 Mg Tab) 750 mg PEG/G-TUBE DAILY@2100 [facility]; Protocol Loratadine/Pseudoephedrine Sulfate (Loratadine-Pseudoeph 5-120 Mg 1 Each Tab.Er.12h) 1 each PO BID [facility] Last Admin: 04/23/22 08:44 Dose: Not Given Lorazepam (Lorazepam 0.5 Mg Tab) 0.5 mg PO Q6HR PRN PRN Reason: Anxiety Methylprednisolone (Methylprednisolone 4 Mg Tab Taper) 24 mg PO DAILY [facility]; Taper Stop: 04/30/22 08:59 Metoprolol Tartrate (Metoprolol Tartrate 12.5 Mg Tab) 12.5 mg PO DAILY [facility] Last Admin: 04/23/22 09:03 Dose: 12.5 mg Miscellaneous Information (Pneumonia Protocol Utilized 1 Each Misc) 1 each PO ONCE PRN PRN Reason: Per Protocol Naloxone HCl (Naloxone 0.4 Mg/Ml 1 Ml Vial) 0.2 mg IV Q2M PRN PRN Reason: Opioid Reversal Ondansetron HCl (Ondansetron 4 Mg/2 Ml Vial) 4 mg IVP Q8HR PRN PRN Reason: Nausea And Vomiting Pantoprazole Sodium (Pantoprazole 40 Mg/10 Ml Vial) 40 mg IVP BID [facility] Last Admin: 04/23/22 09:03 Dose: 40 mg Temazepam (Temazepam 15 Mg Cap) 15 mg PO HS PRN PRN Reason: SLEEP Last Admin: 04/22/22 21:02 Dose: 15 mg Past medical history to include: Atrial fibrillation, COPD, stroke, GERD, prostatitis, rheumatoid arthritis, left vocal cord for last paralysis, right vocal cord partial paralysis, left upper palate partial paralysis, dysphagia midface had muscle wasting and weakness, PEG tube, [place] esophagus, BPH, multiple myeloma, home oxygen 2 L, abdominal aortic aneurysm, rheumatoid arthritis, pseudocyst of pancreas, Social history: Lives with his . Does use a 4 wheel walker. 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 Patient smoked for 10 years 1 pack a day stopped in 1971. Physical examination: VITAL SIGNS: 97.7, 70, 16, 1 67 x 90, 97% on 2 L GENERAL: He planning in bed, looks more comfortable today EYES: Pupils equal. Conjunctiva normal. HEENT: External appearance of nose and ears normal, oral cavity grossly normal. NECK: JVD not raised; masses not palpable. HEART: First and second heart sounds are normal; no edema. LUNGS: Respiratory rate increased; decreased breath sounds . ABDOMEN: Soft, mild tenderness, liver spleen not palpable, no masses palpable. PEG tube PSYCH: Alert and oriented x3; mood and affect anxious MUSCULOSKELETAL:No Clubbing/cyanosis;muscles-grossly intact. Decreased muscle mass NEUROLOGICAL: Slight chronic facial asymmetry, decreased power in all 4 limbs INVESTIGATIONS, reviewed in the clinical context: Sputum culture: Negative April 22: WBC 12.1 hemoglobin 11.3 potassium 4.3 creatinine 0.57 April 21: WBC 12.6 hemoglobin 11.2 platelets 244 WBC 12.2 hemoglobin 13.1 platelets 235 sodium 142 potassium 3.8 BUN 37 creatinine 0.67 COVID 19/influenza type A/type B: Not detected Albumin 3.2 EKG tracing personally reviewed by me: Normal sinus rhythm. Chest x-ray film personally reviewed by me: Elevation in right diaphragm. Assessment and plan: -Pneumonia suspected gram-negative organism, suspected recurrent aspiration: Improving Levaquin. Mucinex -Acute COPD exacerbation in a previous smoker: Better DuoNeb, nebulized Pulmicort, Perforomist -Acute upper GI bleed. With coffee-ground emesis and large aspirate from the PEG tube. Secondary to esophagitis. Distal source of bleeding possible. Dr. Anderson EGD on April 21.. -Severe erosive esophagitis PPI -Chronic medical debility Fall precautions -Chronic gait dysfunction, at her baseline uses a 4 wheeled walker -Chronic hypoxic respiratory failure from underlying COPD 2 L oxygen at home -Mild protein calorie malnutrition. 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 DuoNeb. Perforomist. Pulmicort. Strict- Nothing by mouth. Discussed with patient. Probably DC tomorrow.
[2022-04-23] MEDS ORDERED: LEVOFLOXACIN 750 MG TAB PEG/G-TUBE SCH (21:00)
[2022-04-24] MEDS: SODIUM CHLORIDE 0.9% 1,000 ML IV SCH (02:30)
[2022-04-24 07:28] LABS: Basophils % (A) 0 %; Eosinophils % (A) 0 %; HCT 38.1 % (39.0-53.0); HGB 12.8 gm/dL (13.0-17.5); Lymphocytes % (A) 11 %; MCH 35.2 pg (25.0-35.0); MCHC 33.6 g/dL (31.0-37.0); MCV 104.6 fL (80.0-100.0); Macrocytosis Slight; Mean Platelet Volume 10.7; Monocytes # (A) 0.4 k/uL (0-1.0); Monocytes % (A) 4 %; Neutrophils # (A) 7.8 k/uL (1.3-7.7); Neutrophils % (A) 83 %; Platelet Count 192 k/uL (150-450); RBC 3.64 m/uL (4.30-5.90); RDW 12.4 % (11.5-15.5); WBC 9.4 k/uL (3.8-10.6)
[2022-04-24] MEDS: FORMOTEROL FUMARATE 20 MCG/2 ML NEBU INHALATION SCH (07:51)
[2022-04-24] MEDS: BUDESONIDE 1 MG/2 ML NEBU INHALATION SCH (07:51)
[2022-04-24] MEDS: IPRATROPIUM-ALBUTEROL 3 ML NEB INHALATION PRN (07:51)
[2022-04-24 07:53] VITALS: BP 152/92; RESP 14; TEMP 98.4
[2022-04-24 08:12] VITALS: PULSE 65
[2022-04-24] MEDS: LORATADINE-PSEUDOEPH 5-120 MG 1 EACH TAB.ER.12H PO SCH (08:26)
[2022-04-24] MEDS: METOPROLOL TARTRATE 12.5 MG TAB PO SCH (08:27)
[2022-04-24] MEDS: PANTOPRAZOLE 40 MG/10 ML VIAL IVP SCH (08:27)
[2022-04-24] MEDS ORDERED: PANTOPRAZOLE 40 MG TABLET PO SCH (08:30)
[2022-04-24] MEDS ORDERED: methylPREDNISolone 4 MG TAB TAPER PO SCH (09:00)
--- NOTE | 2022-04-24 15:54 | P.DS ---
Providers Date of admission: 04/19/22 21:01 Expected date of discharge: 04/24/22 Attending physician: Taco Carrillo Consults: 04/19/22 21:01 Consult Physician Routine Consulting Provider: Gina Magdaleno Consult Reason/Comments: COPD exacerbation, right lower lobe pneumonitis Do you want consulting provider notified?: Yes, Notify in am Primary care physician: Harish Alvarado [facility] Course: Chief Complaint: Congested cough This is a 77-year-old patient, follows Dr. Harish Matthews. Pc Tech Dr. Magdaleno. Chronic stable medical conditions include chronic dysphagia may occasionally take a pill by mouth, PEG tube feeding takes 5 cans of Jevity a day, GERD, multiple myeloma, COPD, left vocal cord paralysis, partial right vocal cord paralysis, balance esophagitis, home oxygen 2 L. Does use a 4 wheeled walker. Lives with his . Patient presents with 3 days of increasing cough greenish yellow sputum thick. Increasing short of breath and low-grade fever tired rundown. Admitted with pneumonia. Started on Levaquin. Also wheezing and short of breath. Admitted with pneumonia, COPD exacerbation. April 21: Overnight patient started having coffee-ground emesis. From his PEG tube large amount of dark aspirate possibly bloody obtained. This morning patient was taken down with EGD found to have esophagitis. There was some drop in hemoglobin too April 22: Coughing up significant sputum. Sent off for Gram stain and culture. Seen by speech therapist. Made nothing by mouth. Discussed with patient. On IV Levaquin. Likely had recurrent aspirations. And therefore, strict nothing by mouth April 23: Decrease in sputum production. Since becoming nothing by mouth. Tolerating tube feeding. No fever. Being changed over to by mouth Levaquin. Hopefully discharge tomorrow. April 24: Tolerating 2 feeding. Decreased cough. Discussed with the patient. Complete 1 week of Levaquin. Prednisone taper. Patient to remain nothing by mouth. Discussion and discharge planning more than 35 minutes Past medical history to include: Atrial fibrillation, COPD, stroke, GERD, prostatitis, rheumatoid arthritis, left vocal cord for last paralysis, right vocal cord partial paralysis, left upper palate partial paralysis, dysphagia midface had muscle wasting and weakness, PEG tube, [place] esophagus, BPH, multiple myeloma, home oxygen 2 L, abdominal aortic aneurysm, rheumatoid arthritis, pseudocyst of pancreas, Social history: Lives with his . Does use a 4 wheel walker. 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 Patient smoked for 10 years 1 pack a day stopped in 1971. Physical examination: VITAL SIGNS: 98.4, 58, 14, 152.92, 95% on 2 L GENERAL: Propped up in bed, more comfortable EYES: Pupils equal. Conjunctiva normal. HEENT: External appearance of nose and ears normal, oral cavity grossly normal. NECK: JVD not raised; masses not palpable. HEART: First and second heart sounds are normal; no edema. LUNGS: Respiratory rate increased; decreased breath sounds . ABDOMEN: Soft, mild tenderness, liver spleen not palpable, no masses palpable. PEG tube PSYCH: Alert and oriented x3; mood and affect anxious MUSCULOSKELETAL:No Clubbing/cyanosis;muscles-grossly intact. Decreased muscle mass NEUROLOGICAL: Slight chronic facial asymmetry, decreased power in all 4 limbs INVESTIGATIONS, reviewed in the clinical context: April 24: WBC 9.4 hemoglobin 12.8 pro-calcitonin 0.06 Sputum culture: Negative April 22: WBC 12.1 hemoglobin 11.3 potassium 4.3 creatinine 0.57 April 21: WBC 12.6 hemoglobin 11.2 platelets 244 WBC 12.2 hemoglobin 13.1 platelets 235 sodium 142 potassium 3.8 BUN 37 creatinine 0.67 COVID 19/influenza type A/type B: Not detected Albumin 3.2 EKG tracing personally reviewed by me: Normal sinus rhythm. Chest x-ray film personally reviewed by me: Elevation in right diaphragm. Assessment and plan: -Pneumonia suspected gram-negative organism, suspected recurrent aspiration: Levaquin-7 days. Mucinex -Acute COPD exacerbation in a previous smoker: Better DuoNeb, nebulized Pulmicort, Perforomist -Acute upper GI bleed. With coffee-ground emesis and large aspirate from the PEG tube. Secondary to esophagitis. Distal source of bleeding possible. Dr. Anderson EGD on April 21.. -Severe erosive esophagitis PPI -Chronic medical debility Fall precautions -Chronic gait dysfunction, at her baseline uses a 4 wheeled walker -Chronic hypoxic respiratory failure from underlying COPD 2 L oxygen at home -Mild protein calorie malnutrition. Dietitian consultation -PEG tube feeding 5 cans of Jevity a day -Paroxysmal atrial fibrillation, currently in sinus rhythm Lopressor -GERD PPI -Left vocal cord paralysis/right vocal cord paralysis, left upper palate partial paralysis, dysphagia from facial onset sensory motor neuropathy -Phillips's esophagus PPI -BPH -Acute blood loss anemia from GI bleed Follow H&H Disposition: Home Plan - Discharge Summary Discharge Rx Participant: Yes New Discharge Prescriptions: New Pantoprazole [Protonix] 40 mg PO BID #60 tab Levofloxacin [Levaquin] 750 mg PEG/G-TUBE DAILY@2100 #7 tab predniSONE 10 mg PO DAILY #30 tab Continue Fluticasone/Vilanterol [Breo Ellipta 200-25 Mcg Inhaler] 1 puff INHALATION RT-DAILY Albuterol Inhaler [Ventolin Hfa Inhaler] 1 - 2 puff INHALATION RT-Q6H PRN PRN Reason: Shortness Of Breath Ipratropium-Albuterol Nebulize [Duoneb 0.5 mg-3 mg/3 ml Soln] 3 ml INHALATION RT-QID PRN PRN Reason: Shortness Of Breath Metoprolol Tartrate [Lopressor] 12.5 mg PO DAILY Loratadine-Pseudoeph 10-240 mg [Claritin-D 24 Hour] 1 tab PO DAILY Gabapentin 300 mg PO HS PRN PRN Reason: Pain Ramelteon 8 mg PO HS PRN PRN Reason: SLEEP guaiFENesin [Mucinex] 600 mg PO BID PRN PRN Reason: COUGHING Discontinued Aspirin [Adult Low Dose Aspirin EC] 81 mg PO MOWEFR Ibuprofen [Motrin Ib] 400 mg PO Q8H PRN PRN Reason: Pain Discharge Medication List Fluticasone/Vilanterol [Breo Ellipta 200-25 Mcg Inhaler] 1 puff INHALATION RT- DAILY 10/24/18 [History] Albuterol Inhaler [Ventolin Hfa Inhaler] 1 - 2 puff INHALATION RT-Q6H PRN 11/06/18 [History] Ipratropium-Albuterol Nebulize [Duoneb 0.5 mg-3 mg/3 ml Soln] 3 ml INHALATION RT-QID PRN 11/06/18 [History] Metoprolol Tartrate [Lopressor] 12.5 mg PO DAILY 12/26/18 [History] Loratadine-Pseudoeph 10-240 mg [Claritin-D 24 Hour] 1 tab PO DAILY 03/14/19 [History] Gabapentin 300 mg PO HS PRN 04/16/22 [History] Ramelteon 8 mg PO HS PRN 04/16/22 [History] guaiFENesin [Mucinex] 600 mg PO BID PRN 04/19/22 [History] Levofloxacin [Levaquin] 750 mg PEG/G-TUBE DAILY@2100 #7 tab 04/23/22 [Rx] Pantoprazole [Protonix] 40 mg PO BID #60 tab 04/23/22 [Rx] predniSONE 10 mg PO DAILY #30 tab 04/23/22 [Rx] Follow up Appointment(s)/Referral(s): Harish Alvarado DO [Primary Care Provider] - 04/29/22 2:30 pm Gina Magdaleno MD [STAFF PHYSICIAN] - 05/01/22 1:00 pm Patient Instructions/Handouts: Pneumonia (DC)
== END 2022-04-24 10:22 | disposition home or self-care (01) | DRG 177 ==
LOC: EC 19:20 → 4SSUR 21:01
PROVIDERS: ADMIT Hospitalist; ATTEND Hospitalist
PROC: 3E0G76Z Introduction of Nutritional Substance into Upper GI, Via Natural or Artificial Opening (ICD-10-PCS; 2022-04-20)
PROC: 0DD58ZX Extraction of Esophagus, Via Natural or Artificial Opening Endoscopic, Diagnostic (ICD-10-PCS; principal; 2022-04-21 09:05)
DX: J69.0 Pneumonitis due to inhalation of food and vomit (principal); J96.21 Acute and chronic respiratory failure with hypoxia; K22.11 Ulcer of esophagus with bleeding; K21.01 Gastro-esophageal reflux disease with esophagitis, with bleeding; E44.1 Mild protein-calorie malnutrition; J44.0 Chronic obstructive pulmonary disease with (acute) lower respiratory infection; J44.1 Chronic obstructive pulmonary disease with (acute) exacerbation; G12.29 Other motor neuron disease; K86.3 Pseudocyst of pancreas; I48.92 Unspecified atrial flutter; D62 Acute posthemorrhagic anemia; E86.0 Dehydration; Z20.822 Contact with and (suspected) exposure to COVID-19; K22.89 Other specified disease of esophagus; Z99.81 Dependence on supplemental oxygen; M06.9 Rheumatoid arthritis, unspecified; N40.0 Benign prostatic hyperplasia without lower urinary tract symptoms; J38.02 Paralysis of vocal cords and larynx, bilateral; J20.9 Acute bronchitis, unspecified; D47.2 Monoclonal gammopathy; F03.90 Unspecified dementia, unspecified severity, without behavioral disturbance, psychotic disturbance, mood disturbance, and anxiety; I71.4 Abdominal aortic aneurysm, without rupture; J98.6 Disorders of diaphragm; M54.9 Dorsalgia, unspecified; K13.79 Other lesions of oral mucosa; R13.10 Dysphagia, unspecified; M62.58 Muscle wasting and atrophy, not elsewhere classified, other site; I48.0 Paroxysmal atrial fibrillation; G62.9 Polyneuropathy, unspecified; R53.81 Other malaise; R26.9 Unspecified abnormalities of gait and mobility; M19.90 Unspecified osteoarthritis, unspecified site; G47.9 Sleep disorder, unspecified; K44.9 Diaphragmatic hernia without obstruction or gangrene; Z93.1 Gastrostomy status; Z87.891 Personal history of nicotine dependence; Z87.01 Personal history of pneumonia (recurrent); Z86.73 Personal history of transient ischemic attack (TIA), and cerebral infarction without residual deficits; Z71.3 Dietary counseling and surveillance; Z98.42 Cataract extraction status, left eye; Z98.41 Cataract extraction status, right eye; Z96.1 Presence of intraocular lens; Z79.82 Long term (current) use of aspirin; Z86.19 Personal history of other infectious and parasitic diseases; Z82.5 Family history of asthma and other chronic lower respiratory diseases; Z82.49 Family history of ischemic heart disease and other diseases of the circulatory system
CPT/HCPCS: 36415; 43239; 71046; 80048; 80053; 82271; 83605; 83735; 83880; 84145; 84484; 85025; 85027; 85610; 85730; 87040; 87070; 87205; 87502; 87635; 88305; 93005; 94640; 94760; 96365; 96375; 99285

== ENCOUNTER 2023-03-23 18:31 | Emergency (ER) | payer MEDICARE ==
[2023-03-23 18:53] VITALS: RESP 18; TEMP 98.8
--- NOTE | 2023-03-23 19:18 | ED ---
General Adult HPI - General Source: patient, RN notes reviewed Mode of arrival: ambulatory Limitations: no limitations <Suzanne Nicole - Last Filed: 03/23/23 19:16> - History of Present Illness -: hour(s) Severity scale (1-10): 0 Consistency: constant Improves with: none Worsens with: none Associated Symptoms: denies other symptoms Treatments Prior to Arrival: none <Raphael Vann - Last Filed: 04/07/23 07:52> - General Chief complaint: GI Bleed Stated complaint: peg tube issues coughing up blood Time Seen by Provider: 03/23/23 19:16 - History of Present Illness Initial comments: Patient is an 78 year old male who presents to the emergency department who presents for coughing up blood. (Suzanne Nicole) Patient is an 78-year-old man who presents to have evaluation after he did bring up some blood. Further discussion with the patient reveals he believes it is esophageal. He quit note references coughing up but the patient believes that it was not related to cough. Patient indicates small amount of blood, dark red, probably about a nickel to quarter size. Patient denies symptoms of anemia, no syncope, lightheadedness, palpitations, chest pain, dyspnea. No changes to stool noted (Raphael Vann) - Related Data Home Medications Medication Instructions Recorded Confirmed Fluticasone/Vilanterol [Breo 1 puff INHALATION RT-DAILY 10/24/18 04/02/23 Ellipta 200-25 Mcg Inhaler] Metoprolol Tartrate [Lopressor] 12.5 mg PO DAILY 12/26/18 04/02/23 Gabapentin 600 mg PO HS PRN 04/16/22 04/02/23 Ramelteon 8 mg PO HS PRN 04/16/22 04/02/23 guaiFENesin [Mucinex] 600 mg PO BID PRN 04/19/22 04/02/23 Loratadine [Claritin] 10 mg PO DAILY 03/23/23 04/02/23 Albuterol Nebulized [Ventolin 2.5 mg INHALATION RT-BID PRN 04/02/23 04/02/23 Nebulized] Cephalexin [Keflex] 500 mg PO QID 04/02/23 04/02/23 Ipratropium/Albuter 20-100Mcg 1 puff INHALATION RT-QID PRN 04/02/23 04/02/23 [Combivent Respimat 20-100Mcg Inhaler] Pseudoephedrine [Sudafed] 30 mg PO 0800,2200 04/03/23 04/03/23 Previous Rx's Medication Instructions Recorded Pantoprazole [Protonix] 40 mg PO BID #60 tab 04/23/22 Allergies Allergy/AdvReac Type Severity Reaction Status Date / Time Penicillins Allergy Itching/David Verified 04/02/23 13:52 h piperacillin [From Zosyn] Allergy Itching Verified 04/02/23 13:52 Sulfa (Sulfonamide Allergy Rash/Hives Verified 04/02/23 13:52 Antibiotics) tazobactam [From Zosyn] Allergy Itching Verified 04/02/23 13:52 Review of Systems ROS Other: All systems not noted in ROS Statement are negative. <Suzanne Nicole - Last Filed: 03/23/23 19:16> ROS Other: All systems not noted in ROS Statement are negative. Constitutional: Denies: fever, chills, weakness Respiratory: Reports: cough (Occasional cough). Denies: dyspnea, wheezes Cardiovascular: Denies: chest pain, palpitations, edema Gastrointestinal: Reports: hematemesis. Denies: abdominal pain, nausea, vomiting, diarrhea, melena Genitourinary: Denies: dysuria, hematuria Musculoskeletal: Denies: back pain Skin: Denies: rash Neurological: Denies: headache <Raphael Vann - Last Filed: 04/07/23 07:52> ROS Statement: Those systems with pertinent positive or pertinent negative responses have been documented in the HPI. 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 states fl uid filled area on his elbow . History of Any Multi-Drug Resistant Organisms: None Reported Past Surgical History: Appendectomy, Hernia Repair, Orthopedic Surgery, Tonsillectomy Additional Past Surgical History / Comment(s): Field implant in throat, peg tube, EGDs, colonoscopy, R inguinal hernia, L foot bunionectomy, h emorrhoidectomy, L ring trigger finger release, nasal reconstruction, vocal cord surgery, cataracts/lens implants. fx left pelvis, PEG TUBE Past Anesthesia/Blood Transfusion Reactions: No Reported Reaction Additional Past Anesthesia/Blood Transfusion Reaction / Comment(s): PARALYZED VOCAL CHORDS. Pt has received blood in past without reaction. Past Psychological History: No Psychological Hx Reported Smoking Status: Former smoker Past Alcohol Use History: None Reported Past Drug Use History: None Reported - Past Family History Sister(s) Additional Family Medical History / Comment(s): passed colon CA Brother(s) Additional Family Medical History / Comment(s): sarcidosis Mother Family Medical History: COPD Additional Family Medical History / Comment(s): lung CA Son(s) Family Medical History: Hypertension Additional Family Medical History / Comment(s): lymphoma, sarcoidosis Father Family Medical History: No Reported History Additional Family Medical History / Comment(s): Father was healthy <Suzanne Nicole - Last Filed: 03/23/23 19:16> General Exam Limitations: no limitations <Suzanne Nicole - Last Filed: 03/23/23 19:16> General appearance: alert, in no apparent distress Head exam: Present: atraumatic, normocephalic Eye exam: Present: normal appearance. Absent: scleral icterus, conjunctival injection ENT exam: Present: normal oropharynx Neck exam: Present: normal inspection Respiratory exam: Present: rhonchi. Absent: respiratory distress, wheezes, rales, stridor Cardiovascular Exam: Present: regular rate, normal rhythm, normal heart sounds. Absent: systolic murmur, diastolic murmur, rubs, gallop GI/Abdominal exam: Present: soft, other (PEG tube present, no signs of infection mild erythema at the site). Absent: distended, tenderness, guarding, rebound, mass Extremities exam: Present: normal inspection, normal capillary refill. Absent: pedal edema, calf tenderness Back exam: Present: normal inspection. Absent: CVA tenderness (R), CVA tenderness (L) Neurological exam: Present: alert Skin exam: Present: warm, dry, intact, normal color. Absent: rash <Raphael Vann - Last Filed: 04/07/23 07:52> - General Exam Comments Initial Comments: Visual Physical Exam Vital signs reviewed General: Well-appearing, nontoxic, no acute distress. Head: Normocephalic, atraumatic Eyes: PERRLA, EOMI ENT: Airway patent Chest: Nonlabored breathing Skin: No visual rash, normal skin tone Neuro: Alert and oriented 3 Musculoskeletal: No gross abnormalities (Suzanne Nicloe) Course Vital Signs 03/23/23 03/24/23 18:49 00:25 Temperature 98.8 F Pulse Rate 57 L 67 Respiratory 18 18 Rate Blood Pressure 113/78 122/82 O2 Sat by Pulse 95 98 Oximetry EKG Findings - EKG Results: EKG: interpreted by ERMD, sinus rhythm, normal axis, normal QRS, normal ST/T EKG shows: bradycardia (Rate 52 bpm) <Raphael Vann - Last Filed: 04/07/23 07:52> Medical Decision Making <Suzanne Nicole - Last Filed: 03/23/23 19:16> - Lab Data Result diagrams: 03/23/23 19:57 03/23/23 19:57 <PatienceRaphael el - Last Filed: 04/07/23 07:52> - Medical Decision Making I performed the QuickNote portion of this chart - Suzanne Nicole PA-C (Suzanne Nicole) The patient had chest x-ray which I interpreted as being negative for acute infiltrate, pneumothorax, congestive heart failure Was pt. sent in by a medical professional or institution (ALAINA Jacobs, CREDIT CONTROL ADMINISTRATOR, urgent care, hospital, or fpc...) When possible be specific @ -[No] Did you speak to anyone other than the patient for history (EMS, parent, family, police, friend...)? What history was obtained from this source @ -[No] Did you review nursing and triage notes (agree or disagree)? Why? @ -[I reviewed and agree with nursing and triage notes] Were old charts reviewed (outside hosp., previous admission, EMS record, old EKG, old radiological studies, urgent care reports/EKG's, fpc records)? Report findings @ -[No old charts were reviewed] Differential Diagnosis (chest pain, altered mental status, abdominal pain women, abdominal pain men, vaginal bleeding, weakness, fever, dyspnea, syncope, headache, dizziness, GI bleed, back pain, seizure, CVA, palpatations, mental health, musculoskeletal)? @ -[Differential GI Bleed: Esophageal varices, aortoenteric fistula, Daiana-Bunn, gastritis, peptic ulcer disease, diverticulosis, inflammatory bowel disease, hemorrhoids, fissure, colitis, malignancy, Meckels diverticulum, this is not meant to be an all- inclusive list. There is also consideration for bronchitis, pneumonia, epistaxis as well EKG interpreted by me (3pts min.). @ -[As above] X-rays interpreted by me (1pt min.). @ -[I interpreted as above CT interpreted by me (1pt min.). @ -[None done] U/S interpreted by me (1pt. min.). @ -[None done] What testing was considered but not performed or refused? (CT, X-rays, U/S, labs)? Why? @ -[None] What meds were considered but not given or refused? Why? @ -[None] Did you discuss the management of the patient with other professionals (professionals i.e. , PA, CREDIT CONTROL ADMINISTRATOR, lab, RT, psych nurse, drug abuse social worker, revenue inspector, t eacher, animal control officer, case investigator)? Give summary @ -[No] Was smoking cessation discussed for >3mins.? @ -[No] Was critical care preformed (if so, how long)? @ -[No] Were there social determinants of health that impacted care today? How? (Homelessness, low income, unemployed, alcoholism, drug addiction, transportation, low edu. Level, literacy, decrease access to med. care, [facility] [facility], r ehab)? @ -[No] Was there de-escalation of care discussed even if they declined (Discuss DNR or withdrawal of care, Hospice)? DNR status @ -[No] What co-morbidities impacted this encounter? (DM, HTN, Smoking, COPD, CAD, Cance r, CVA, ARF, Chemo, Hep., AIDS, mental health diagnosis, sleep apnea, morbid obesity)? @ -[None] Was patient admitted / discharged? Hospital course, mention meds given and route, prescriptions, significant lab abnormalities, going to OR and other pertinent info. @ -[Patient is an 78-year-old man who has brought up small amounts of blood on few occasions over the past when he 4 hours. The patient's laboratory workup is unremarkable. We discussed that there was not gastroenterology coverage, and that further care would be involving transfer to facility that does currently have GI. The patient states that he will try to follow-up in the clinic with Dr. Dill who he knows well. The patient's family supports decision. The patient will return should the amount of blood increase or if he starts experiencing any other symptoms. Undiagnosed new problem with uncertain prognosis? @ -[No] Drug Therapy requiring intensive monitoring for toxicity (Heparin, Nitro, Insulin, Cardizem)? @ -[No] Were any procedures done? @ -[No] Diagnosis/symptom? @ -[Suspected GI bleeding versus possible hemoptysis Acute, or Chronic, or Acute on Chronic? @ -[Acute Uncomplicated (without systemic symptoms) or Complicated (systemic symptoms)? @ -[Uncomplicated Side effects of treatment? @ -[No] Exacerbation, Progression, or Severe Exacerbation? @ -[No] Poses a threat to life or bodily function? How? (Chest pain, USA, ID, pneumonia, PE, COPD, DKA, ARF, appy, cholecystitis, CVA, Diverticulitis, Homicidal, Suicidal, threat to staff... and all critical care pts) @ -[No] (Raphael Vann) - Lab Data Lab Results 03/23/23 03/23/23 03/23/23 Range/Units 19:57 19:57 19:57 WBC 6.5 (3.8-10.6) k/uL RBC 4.25 L (4.30-5.90) m/uL Hgb 14.7 (13.0-17.5) gm/dL Hct 43.8 (39.0-53.0) % MCV 103.0 H (80.0-100.0) fL MCH 34.6 (25.0-35.0) pg MCHC 33.6 (31.0-37.0) g/dL RDW 12.8 (11.5-15.5) % Plt Count 147 L (150-450) k/uL MPV 9.8 Neutrophils % 66 % Lymphocytes % 21 % Monocytes % 7 % Eosinophils % 3 % Basophils % 0 % Neutrophils # 4.3 (1.3-7.7) k/uL Lymphocytes # 1.4 (1.0-4.8) k/uL Monocytes # 0.5 (0-1.0) k/uL Eosinophils # 0.2 (0-0.7) k/uL Basophils # 0.0 (0-0.2) k/uL Macrocytosis Slight Sodium 136 L (137-145) mmol/L Potassium 4.9 (3.5-5.1) mmol/L Chloride 97 L (98-107) mmol/L Carbon Dioxide 32 H (22-30) mmol/L Anion Gap 7 mmol/L BUN 31 H (9-20) mg/dL Creatinine 0.65 L (0.66-1.25) mg/dL Est GFR (CKD-EPI)AfAm >90 (>60 ml/min/1.73 sqM) Est GFR (CKD-EPI)NonAf >90 (>60 ml/min/1.73 sqM) Glucose 88 (74-99) mg/dL Plasma Lactic Acid Cristian 0.9 (0.7-2.0) mmol/L Calcium 9.2 (8.4-10.2) mg/dL Total Bilirubin 0.8 (0.2-1.3) mg/dL AST 47 (17-59) U/L ALT 39 (4-49) U/L Alkaline Phosphatase 227 H (38-126) U/L Total Protein 8.0 (6.3-8.2) g/dL Albumin 4.0 (3.5-5.0) g/dL Lipase 71 (23-300) U/L Urine Color Urine Appearance (Clear) Urine pH (5.0-8.0) Ur Specific [place] (1.001-1.035) Urine Protein (Negative) Urine Glucose (UA) (Negative) Urine Ketones (Negative) Urine Blood (Negative) Urine Nitrite (Negative) Urine Bilirubin (Negative) Urine Urobilinogen (<2.0) mg/dL Ur Leukocyte Esterase (Negative) 03/23/23 Range/Units 21:21 WBC (3.8-10.6) k/uL RBC (4.30-5.90) m/uL Hgb (13.0-17.5) gm/dL Hct (39.0-53.0) % MCV (80.0-100.0) fL MCH (25.0-35.0) pg MCHC (31.0-37.0) g/dL RDW (11.5-15.5) % Plt Count (150-450) k/uL MPV Neutrophils % % Lymphocytes % % Monocytes % % Eosinophils % % Basophils % % Neutrophils # (1.3-7.7) k/uL Lymphocytes # (1.0-4.8) k/uL Monocytes # (0-1.0) k/uL Eosinophils # (0-0.7) k/uL Basophils # (0-0.2) k/uL Macrocytosis Sodium (137-145) mmol/L Potassium (3.5-5.1) mmol/L Chloride (98-107) mmol/L Carbon Dioxide (22-30) mmol/L Anion Gap mmol/L BUN (9-20) mg/dL Creatinine (0.66-1.25) mg/dL Est GFR (CKD-EPI)AfAm (>60 ml/min/1.73 sqM) Est GFR (CKD-EPI)NonAf (>60 ml/min/1.73 sqM) Glucose (74-99) mg/dL Plasma Lactic Acid Cristian (0.7-2.0) mmol/L Calcium (8.4-10.2) mg/dL Total Bilirubin (0.2-1.3) mg/dL AST (17-59) U/L ALT (4-49) U/L Alkaline Phosphatase (38-126) U/L Total Protein (6.3-8.2) g/dL Albumin (3.5-5.0) g/dL Lipase (23-300) U/L Urine Color Yellow Urine Appearance Clear (Clear) Urine pH 6.5 (5.0-8.0) Ur Specific [place] 1.027 (1.001-1.035) Urine Protein Trace H (Negative) Urine Glucose (UA) Negative (Negative) Urine Ketones Trace H (Negative) Urine Blood Negative (Negative) Urine Nitrite Negative (Negative) Urine Bilirubin Negative (Negative) Urine Urobilinogen 4.0 (<2.0) mg/dL Ur Leukocyte Esterase Negative (Negative) Disposition <Suzanne Nicole - Last Filed: 03/23/23 19:16> Is patient prescribed a controlled substance at d/c from ED?: No <Raphael Vann - Last Filed: 04/07/23 07:52> Clinical Impression: Upper gastrointestinal hemorrhage Disposition: HOME SELF-CARE Condition: Stable Instructions (If sedation given, give patient instructions): Gastrointestinal Bleeding (ED) Referrals: Joan Dill MD [STAFF PHYSICIAN] - 1-2 days Harish Alvarado DO [Primary Care Provider] - 1-2 days
--- NOTE | 2023-03-23 19:33 | XR ---
EXAMINATION TYPE: XR chest 2V DATE OF EXAM: 03/23/2023 7:25 PM COMPARISON: Chest radiographs from 04/19/2022 TECHNIQUE: XR chest 2V Frontal and lateral views of the chest. CLINICAL INDICATION:Male, 78 years old with history of hemoptysis. FINDINGS: Lungs/Pleura: Similar elevated right diaphragm. There is no evidence of pleural effusion, focal conso lidation, or pneumothorax. Pulmonary vascularity: Unremarkable. Heart/mediastinum: Cardiomediastinal silhouette is unremarkable. Musculoskeletal: No acute osseous pathology. IMPRESSION: 1. No acute cardiopulmonary disease/process. 2. Elevated right diaphragm, similar to prior.
[2023-03-23 20:22] LABS: Basophils % (A) 0 %; Eosinophils # (A) 0.2 k/uL (0-0.7); Eosinophils % (A) 3 %; HCT 43.8 % (39.0-53.0); HGB 14.7 gm/dL (13.0-17.5); Lymphocytes # (A) 1.4 k/uL (1.0-4.8); Lymphocytes % (A) 21 %; MCH 34.6 pg (25.0-35.0); MCHC 33.6 g/dL (31.0-37.0); Macrocytosis Slight; Mean Platelet Volume 9.8; Monocytes # (A) 0.5 k/uL (0-1.0); Monocytes % (A) 7 %; Neutrophils # (A) 4.3 k/uL (1.3-7.7); Neutrophils % (A) 66 %; Platelet Count 147 k/uL (150-450); RBC 4.25 m/uL (4.30-5.90); RDW 12.8 % (11.5-15.5); WBC 6.5 k/uL (3.8-10.6)
[2023-03-23 20:39] LABS: ALT 39 U/L (4-49); AST 47 U/L (17-59); African American GFR (CKD) >90 (>60 ml/min/1.73 sqM); Alkaline Phosphatase 227 U/L (38-126); Anion Gap 7 mmol/L; Blood Urea Nitrogen 31 mg/dL (9-20); Calcium 9.2 mg/dL (8.4-10.2); Carbon Dioxide 32 mmol/L (22-30); Chloride 97 mmol/L (98-107); Glucose 88 mg/dL (74-99); Lipase 71 U/L (23-300); Non-African American GFR(CKD) >90 (>60 ml/min/1.73 sqM); Potassium 4.9 mmol/L (3.5-5.1); Sodium 136 mmol/L (137-145); Total Bilirubin 0.8 mg/dL (0.2-1.3)
[2023-03-23 21:55] LABS: Appearance,Urine Clear (Clear); Bilirubin,Urine Negative (Negative); Blood,Urine Negative (Negative); Color,Urine Yellow; Glucose,Urine (UA) Negative (Negative); Ketones,Urine Trace (Negative); Leukocyte Esterase,Urine Negative (Negative); Nitrite,Urine Negative (Negative); PH, Urine 6.5 (5.0-8.0); Protein,Urine Trace (Negative); Specific Gravity,Urine 1.027 (1.001-1.035)
[2023-03-23] MEDS ORDERED: NALOXONE 0.4 MG/ML 1 ML VIAL IV PRN (22:50)
[2023-03-23] MEDS ORDERED: ONDANSETRON 4 MG/2 ML VIAL IVP PRN (22:50)
[2023-03-23] MEDS ORDERED: MAG HYDROX/AL HYDROX/SIMETH 30 ML CUP PO PRN (22:50)
[2023-03-23] MEDS ORDERED: ACETAMINOPHEN TAB 325 MG TAB PO PRN (22:50)
[2023-03-23] MEDS ORDERED: guaiFENesin 600 MG TABLET.ER PO PRN (22:52)
[2023-03-23] MEDS ORDERED: GABAPENTIN 300 MG CAP PO PRN (22:52)
[2023-03-23] MEDS ORDERED: ZOLPIDEM 5 MG TAB PO PRN (22:52)
[2023-03-23] MEDS ORDERED: ALBUTEROL NEBULIZED 2.5 MG/3 ML INHALATION PRN (22:52)
[2023-03-23] MEDS ORDERED: SODIUM CHLORIDE 0.9% 1,000 ML IV SCH (23:00)
[2023-03-24 00:27] VITALS: BP 122/82; PULSE 67
[2023-03-24] MEDS ORDERED: PANTOPRAZOLE 40 MG TABLET PO SCH (09:00)
[2023-03-24] MEDS ORDERED: METOPROLOL TARTRATE 12.5 MG TAB PO SCH (09:00)
[2023-03-24] MEDS ORDERED: PANTOPRAZOLE 40 MG/10 ML VIAL IV SCH (09:00)
[2023-03-24] MEDS ORDERED: SYMBICORT 160-4.5 MCG INHALER INHALATION SCH (20:00)
== END 2023-03-24 00:26 | disposition home or self-care (01) ==
LOC: EC 18:31
DX: K92.2 Gastrointestinal hemorrhage, unspecified (principal); I48.91 Unspecified atrial fibrillation; J44.9 Chronic obstructive pulmonary disease, unspecified; K21.9 Gastro-esophageal reflux disease without esophagitis; M06.9 Rheumatoid arthritis, unspecified; Z86.73 Personal history of transient ischemic attack (TIA), and cerebral infarction without residual deficits; Z87.891 Personal history of nicotine dependence; Z88.0 Allergy status to penicillin; Z88.2 Allergy status to sulfonamides; Z88.8 Allergy status to other drugs, medicaments and biological substances; Z79.51 Long term (current) use of inhaled steroids; Z79.899 Other long term (current) drug therapy
CPT/HCPCS: 36415; 71046; 80053; 81003; 83605; 83690; 85025; 93005; 99285

== ENCOUNTER 2023-04-02 12:08 | Inpatient (IN) | payer MEDICARE ==
[2023-04-02 13:36] LABS: Basophils % (A) 0 %; Eosinophils # (A) 0.2 k/uL (0-0.7); Eosinophils % (A) 3 %; HCT 43.3 % (39.0-53.0); HGB 14.3 gm/dL (13.0-17.5); Lymphocytes % (A) 17 %; MCH 34.2 pg (25.0-35.0); MCHC 32.9 g/dL (31.0-37.0); MCV 103.9 fL (80.0-100.0); Macrocytosis Slight; Mean Platelet Volume 10.9; Monocytes # (A) 0.3 k/uL (0-1.0); Monocytes % (A) 6 %; Neutrophils # (A) 4.4 k/uL (1.3-7.7); Neutrophils % (A) 72 %; Platelet Count 149 k/uL (150-450); RBC 4.17 m/uL (4.30-5.90); RDW 12.8 % (11.5-15.5); WBC 6.1 k/uL (3.8-10.6)
[2023-04-02 13:55] LABS: ALT 37 U/L (4-49); AST 46 U/L (17-59); African American GFR (CKD) >90 (>60 ml/min/1.73 sqM); Albumin 3.9 g/dL (3.5-5.0); Alkaline Phosphatase 201 U/L (38-126); Anion Gap 6 mmol/L; Blood Urea Nitrogen 32 mg/dL (9-20); Calcium 9.2 mg/dL (8.4-10.2); Carbon Dioxide 31 mmol/L (22-30); Chloride 98 mmol/L (98-107); Glucose 101 mg/dL (74-99); Magnesium 2.3 mg/dL (1.6-2.3); Non-African American GFR(CKD) 88 (>60 ml/min/1.73 sqM); Sodium 135 mmol/L (137-145); Total Bilirubin 0.8 mg/dL (0.2-1.3); Total Protein 7.7 g/dL (6.3-8.2)
[2023-04-02] MEDS ORDERED: VANCOMYCIN IV PER PHARMACY 1 EACH MISC MISCELLANE PRN (14:15)
[2023-04-02] MEDS ORDERED: NALOXONE 0.4 MG/ML 1 ML VIAL IV PRN (14:18)
[2023-04-02] MEDS: SODIUM CHLORIDE 0.9% 1,000 ML IV SCH (14:20)
[2023-04-02] MEDS ORDERED: VANCOMYCIN 1,500 MG in SODIUM CHLORIDE 0.9% 500 ML 500 ML IVPB STA (14:21)
--- NOTE | 2023-04-02 14:25 | ED ---
General Adult HPI - General Chief complaint: Skin/Abscess/Foreign Body Stated complaint: infection Time Seen by Provider: 04/02/23 12:13 Source: patient, family, RN notes reviewed, old records reviewed Mode of arrival: wheelchair Limitations: no limitations - History of Present Illness Initial comments: 78-year-old male sent in by his iron worker foreman for evaluation of anterior abdominal wall cellulitis per patient has had erythema and drainage from around his PEG tube for at least the past one week. He's completed a full course of oral antibiotics without any improvement. He denies fever. He was sent by his iron worker foreman Dr. Mgadaleno for admission for failed outpatient treatment. - Related Data Home Medications Medication Instructions Recorded Confirmed Fluticasone/Vilanterol [Breo 1 puff INHALATION RT-DAILY 10/24/18 04/02/23 Ellipta 200-25 Mcg Inhaler] Metoprolol Tartrate [Lopressor] 12.5 mg PO DAILY 12/26/18 04/02/23 Gabapentin 600 mg PO HS PRN 04/16/22 04/02/23 Ramelteon 8 mg PO HS PRN 04/16/22 04/02/23 guaiFENesin [Mucinex] 600 mg PO BID PRN 04/19/22 04/02/23 Loratadine [Claritin] 10 mg PO DAILY 03/23/23 04/02/23 Albuterol Nebulized [Ventolin 2.5 mg INHALATION RT-BID PRN 04/02/23 04/02/23 Nebulized] Cephalexin [Keflex] 500 mg PO QID 04/02/23 04/02/23 Ipratropium/Albuter 20-100Mcg 1 puff INHALATION RT-QID PRN 04/02/23 04/02/23 [Combivent Respimat 20-100Mcg Inhaler] Previous Rx's Medication Instructions Recorded Pantoprazole [Protonix] 40 mg PO BID #60 tab 04/23/22 Allergies Allergy/AdvReac Type Severity Reaction Status Date / Time Penicillins Allergy Itching/David Verified 04/02/23 13:52 h piperacillin [From Zosyn] Allergy Itching Verified 04/02/23 13:52 Sulfa (Sulfonamide Allergy Rash/Hives Verified 04/02/23 13:52 Antibiotics) tazobactam [From Zosyn] Allergy Itching Verified 04/02/23 13:52 Review of Systems ROS Statement: Those systems with pertinent positive or pertinent negative responses have been documented in the HPI. ROS Other: All systems not noted in ROS Statement are negative. 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 states fluid filled area on his elbow . History of Any Multi-Drug Resistant Organisms: None Reported Past Surgical History: Appendectomy, Hernia Repair, Orthopedic Surgery, Tonsillectomy Additional Past Surgical History / Comment(s): Field implant in throat, peg tube, EGDs, colonoscopy, R inguinal hernia, L foot bunionectomy, hemorr hoidectomy, L ring trigger finger release, nasal reconstruction, vocal cord surgery, cataracts/lens implants. fx left pelvis, PEG TUBE Past Anesthesia/Blood Transfusion Reactions: No Reported Reaction Additional Past Anesthesia/Blood Transfusion Reaction / Comment(s): PARALYZED VOCAL CHORDS. Pt has received blood in past without reaction. Past Psychological History: No Psychological Hx Reported Smoking Status: Former smoker Past Alcohol Use History: None Reported Past Drug Use History: None Reported - Past Family History Sister(s) Additional Family Medical History / Comment(s): passed colon CA Brother(s) Additional Family Medical History / Comment(s): sarcidosis Mother Family Medical History: COPD Additional Family Medical History / Comment(s): lung CA Son(s) Family Medical History: Hypertension Additional Family Medical History / Comment(s): lymphoma, sarcoidosis Father Family Medical History: No Reported History Additional Family Medical History / Comment(s): Father was healthy General Exam Limitations: no limitations General appearance: alert, in no apparent distress Head exam: Present: atraumatic, normocephalic Eye exam: Present: normal appearance, PERRL ENT exam: Present: normal exam Neck exam: Present: normal inspection. Absent: tenderness, meningismus Respiratory exam: Present: normal lung sounds bilaterally. Absent: respiratory distress, wheezes Cardiovascular Exam: Present: regular rate, normal rhythm GI/Abdominal exam: Present: soft, other (Purulent drainage around the PEG tube with associated cellulitis. No induration, no fluctuance or tenderness.). Absent: distended, tenderness Extremities exam: Present: normal inspection, normal capillary refill Neurological exam: Present: alert, oriented X3, CN II-XII intact. Absent: motor sensory deficit Psychiatric exam: Present: normal affect, normal mood Skin exam: Present: warm Course Vital Signs 04/02/23 04/02/23 12:10 12:19 Temperature 98.1 F Pulse Rate 58 L 64 Respiratory 16 20 Rate Blood Pressure 127/73 139/77 O2 Sat by Pulse 96 98 Oximetry Medical Decision Making - Medical Decision Making Was pt. sent in by a medical professional or institution (Dr. PA, GRAIN TRIMMER, urgent care, hospital, or snf...) When possible be specific @ -[Sent in by iron worker foreman for evaluation Did you speak to anyone other than the patient for history (EMS, parent, family, police, friend...)? What history was obtained from this source @ -No Did you review nursing and triage notes (agree or disagree)? Why? @ -I reviewed and agree with nursing and triage notes Were old charts reviewed (outside hosp., previous admission, EMS record, old EKG, old radiological studies, urgent care reports/EKG's, snf records)? Report findings @ -No old charts were reviewed Differential Diagnosis (chest pain, altered mental status, abdominal pain women, abdominal pain men, vaginal bleeding, weakness, fever, dyspnea, syncope, headache, dizziness, GI bleed, back pain, seizure, CVA, palpatations, mental health, musculoskeletal)? @ Cellulitis, abscess, soft tissue infection EKG interpreted by me (3pts min.). @ -As above X-rays interpreted by me (1pt min.). @ -None done CT interpreted by me (1pt min.). @ -None done U/S interpreted by me (1pt. min.). @ -None done What testing was considered but not performed or refused? (CT, X-rays, U/S, labs)? Why? @ -None What meds were considered but not given or refused? Why? @ -None Did you discuss the management of the patient with other professionals (natali hutchison i.e. , PA, GRAIN TRIMMER, lab, RT, psych nurse, addiction social worker, registered nurse step down, teacher, navigating officer, case picker)? Give summary @ Case discussed with Dr. Carrillo who will admit Was smoking cessation discussed for >3mins.? @ -No Was critical care preformed (if so, how long)? @ -No Were there social determinants of health that impacted care today? How? (Homelessness, low income, unemployed, alcoholism, drug addiction, transportation, low edu. Level, literacy, decrease access to med. care, [facility], rehab)? @ -No Was there de-escalation of care discussed even if they declined (Discuss DNR or withdrawal of care, Hospice)? DNR status @ -No What co-morbidities impacted this encounter? (DM, HTN, Smoking, COPD, CAD, Cancer, CVA, ARF, Chemo, Hep., AIDS, mental health diagnosis, sleep apnea, morbid obesity)? @ -None Was patient admitted / discharged? Hospital course, mention meds given and route, prescriptions, significant lab abnormalities, going to OR and other pertinent info. @ -[Patient admitted for cellulitis, failed outpatient treatment. Patient is nontoxic, well-appearing with purulent drainage around his PEG tube and associated surrounding cellulitis. Placed on ceftriaxone and vancomycin. Admitted to internal medicine. Undiagnosed new problem with uncertain prognosis? @ -No Drug Therapy requiring intensive monitoring for toxicity (Heparin, Nitro, Insulin, Cardizem)? @ -No Were any procedures done? @ -No Diagnosis/symptom? @ -[Cellulitis, purulent drainage around PEG tube Acute, or Chronic, or Acute on Chronic? @ -Acute Uncomplicated (without systemic symptoms) or Complicated (systemic symptoms)? @ -default Side effects of treatment? @ -No Exacerbation, Progression, or Severe Exacerbation? @ -No Poses a threat to life or bodily function? How? (Chest pain, USA, AL, pneumonia, PE, COPD, DKA, ARF, appy, cholecystitis, CVA, Diverticulitis, Homicidal, Suicidal, threat to staff... and all critical care pts) @ -[Yes, sepsis - Lab Data Result diagrams: 04/02/23 13:19 04/02/23 13:19 Lab Results 04/02/23 04/02/23 04/02/23 Range/Units 13:19 13:19 13:25 WBC 6.1 (3.8-10.6) k/uL RBC 4.17 L (4.30-5.90) m/uL Hgb 14.3 (13.0-17.5) gm/dL Hct 43.3 (39.0-53.0) % MCV 103.9 H (80.0-100.0) fL MCH 34.2 (25.0-35.0) pg MCHC 32.9 (31.0-37.0) g/dL RDW 12.8 (11.5-15.5) % Plt Count 149 L (150-450) k/uL MPV 10.9 Neutrophils % 72 % Lymphocytes % 17 % Monocytes % 6 % Eosinophils % 3 % Basophils % 0 % Neutrophils # 4.4 (1.3-7.7) k/uL Lymphocytes # 1.0 (1.0-4.8) k/uL Monocytes # 0.3 (0-1.0) k/uL Eosinophils # 0.2 (0-0.7) k/uL Basophils # 0.0 (0-0.2) k/uL Macrocytosis Slight Sodium 135 L (137-145) mmol/L Potassium 5.0 (3.5-5.1) mmol/L Chloride 98 (98-107) mmol/L Carbon Dioxide 31 H (22-30) mmol/L Anion Gap 6 mmol/L BUN 32 H (9-20) mg/dL Creatinine 0.73 (0.66-1.25) mg/dL Est GFR (CKD-EPI)AfAm >90 (>60 ml/min/1.73 sqM) Est GFR (CKD-EPI)NonAf 88 (>60 ml/min/1.73 sqM) Glucose 101 H (74-99) mg/dL Plasma Lactic Acid Cristian 1.3 (0.7-2.0) mmol/L Calcium 9.2 (8.4-10.2) mg/dL Magnesium 2.3 (1.6-2.3) mg/dL Total Bilirubin 0.8 (0.2-1.3) mg/dL AST 46 (17-59) U/L ALT 37 (4-49) U/L Alkaline Phosphatase 201 H (38-126) U/L Total Protein 7.7 (6.3-8.2) g/dL Albumin 3.9 (3.5-5.0) g/dL Disposition Clinical Impression: Cellulitis Disposition: ADMITTED IP TO THIS [facility] Condition: Stable Is patient prescribed a controlled substance at d/c from ED?: No Referrals: Harish Alvarado DO [Primary Care Provider] - 1-2 days Time of Disposition: 14:25
[2023-04-02] MEDS ORDERED: ALBUTEROL NEBULIZED 2.5 MG/3 ML INHALATION PRN (15:06)
[2023-04-02] MEDS ORDERED: IPRATROPIUM-ALBUTEROL 3 ML NEB INHALATION PRN (15:06)
--- NOTE | 2023-04-02 17:13 | P.HPIM ---
History of Present Illness H&P Date: 04/02/23 Chief Complaint: Infection at PEG tube site This is a 78-year-old patient, follows Dr. Harish Matthews. Rn Surgery Icu Dr. Magdaleno. Chronic stable medical conditions include chronic dysphagia may occasionally take a pill by mouth, PEG tube feeding takes 5 cans of Jevity a day , GERD, multiple myeloma, COPD, left vocal cord paralysis, partial right vocal cord paralysis, esophagitis, . Does use a 4 wheeled walker. Lives with his . Patient is a PEG tube site infection. He has taken antibiotic name he cannot remember for close to 4 weeks. Not improving. No fever no chills. Increased redness drainage around the PEG tube. Dr. Kevin Dill from [facility] will change the PEG tube once the infection is healed. She went down to see his community center coordinator today. She was sent to the ER for IV in divided. eview of systems: GEN.: Tired, EYES: None HEENT: Dysphagia dysarthria NECK: None RESPIRATORY: Occasional cough CARDIOVASCULAR: None GASTROINTESTINAL: As above GENITOURINARY: None MUSCULOSKELETAL: Some joint pains LYMPHATICS: None HEMATOLOGICAL: None PSYCHIATRY: Bit anxious NEUROLOGICAL: Does use a 4 wheeled walker Past medical history to include: Atrial fibrillation, COPD, stroke, GERD, prostatitis, rheumatoid arthritis, left vocal cord for last paralysis, right vocal cord partial paralysis, left upper palate partial paralysis, dysphagia midface had muscle wasting and weakness, PEG tube, Phillips's esophagus, BPH, multiple myeloma, home oxygen sometimes, abdominal aortic aneurysm, rheumatoid arthritis, pseudocyst of pancreas, 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 Does use a 4 wheel walker. 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 Patient smoked for 10 years 1 pack a day stopped in 1971. Physical examination: VITAL SIGNS: 98.1, 58, 16, 127/73, 96% room air GENERAL: BMI 25. Sitting up in bed. EYES: Pupils equal. Conjunctiva normal. HEENT: External appearance of nose and ears normal, oral cavity grossly normal. NECK: JVD not raised; masses not palpable. HEART: First and second heart sounds are normal; no edema. LUNGS: Respiratory rate normal; decreased breath sounds ABDOMEN: Soft, nontender, liver spleen not palpable, no masses palpable. PEG t ube site: Surrounding cellulitis. Moist. Some daniel drainage. PSYCH: Alert and oriented x3; mood and affect normal. MUSCULOSKELETAL:No Clubbing/cyanosis;muscles-grossly intact. OA. NEUROLOGICAL: [Cranial nerves grossly intact; some facial asymmetry, intermittent tremor. Dysarthria. LYMPHATICS: No lymph nodes palpable in the axilla and neck INVESTIGATIONS, reviewed in the clinical context: April 02: White count 6.1 hemoglobin 14.3 platelets 149 sodium 135 potassium 5 BUN 32 creatinine 0.73 Assessment and plan: -Acute PEG tube site incision infection with wound. With surrounding cellulitis. Failed outpatient treatment. Starting IV antibiotics. Will need IV antibiotics. Wound Gram stain and culture. -Pneumonia suspected gram-negative organism, suspected recurrent aspiration: Levaquin-7 days. Mucinex -COPD in a previous smoker. DuoNeb-when necessary, Symbicort -Phillips's esophagitis PPI -Chronic gait dysfunction, at her baseline uses a 4 wheeled walker -Mild protein calorie malnutrition. Dietitian consultation -PEG tube feeding 5 cans of Jevity a day. Dietitian consult -Paroxysmal atrial fibrillation, currently in sinus rhythm Lopressor -GERD PPI -Left vocal cord paralysis/right vocal cord paralysis, left upper palate partial paralysis, dysphagia from facial onset sensory motor neuropathy -BPH -Full code Care was discussed with the patient. Question answered. 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 states fluid filled area on his elbow . History of Any Multi-Drug Resistant Organisms: None Reported Past Surgical History: Appendectomy, Hernia Repair, Orthopedic Surgery, Tonsillectomy Additional Past Surgical History / Comment(s): Field implant in throat, peg tube, EGDs, colonoscopy, R inguinal hernia, L foot bunionectomy, hemorrhoidectomy, L ring trigger finger release, nasal reconstruction, vocal cord surgery, cataracts/lens implants. fx left pelvis, PEG TUBE Past Anesthesia/Blood Transfusion Reactions: No Reported Reaction Additional Past Anesthesia/Blood Transfusion Reaction / Comment(s): PARALYZED VOCAL CHORDS. Pt has received blood in past without reaction. Past Psychological History: No Psychological Hx Reported Smoking Status: Former smoker Past Alcohol Use History: None Reported Past Drug Use History: None Reported - Past Family History Sister(s) Additional Family Medical History / Comment(s): passed colon CA Brother(s) Additional Family Medical History / Comment(s): sarcidosis Mother Family Medical History: COPD Additional Family Medical History / Comment(s): lung CA Son(s) Family Medical History: Hypertension Additional Family Medical History / Comment(s): lymphoma, sarcoidosis Father Family Medical History: No Reported History Additional Family Medical History / Comment(s): Father was healthy Medications and Allergies Home Medications Medication Instructions Recorded Confirmed Type Fluticasone/Vilanterol [Breo 1 puff INHALATION RT-DAILY 10/24/18 04/02/23 History Ellipta 200-25 Mcg Inhaler] Metoprolol Tartrate [Lopressor] 12.5 mg PO DAILY 12/26/18 04/02/23 History Gabapentin 600 mg PO HS PRN 04/16/22 04/02/23 History Ramelteon 8 mg PO HS PRN 04/16/22 04/02/23 History guaiFENesin [Mucinex] 600 mg PO BID PRN 04/19/22 04/02/23 History Pantoprazole [Protonix] 40 mg PO BID #60 tab 04/23/22 04/02/23 Rx Loratadine [Claritin] 10 mg PO DAILY 03/23/23 04/02/23 History Albuterol Nebulized [Ventolin 2.5 mg INHALATION RT-BID PRN 04/02/23 04/02/23 History Nebulized] Cephalexin [Keflex] 500 mg PO QID 04/02/23 04/02/23 History Ipratropium/Albuter 20-100Mcg 1 puff INHALATION RT-QID PRN 04/02/23 04/02/23 History [Combivent Respimat 20-100Mcg Inhaler] Allergies Allergy/AdvReac Type Severity Reaction Status Date / Time Penicillins Allergy Itching/David Verified 04/02/23 13:52 h piperacillin [From Zosyn] Allergy Itching Verified 04/02/23 13:52 Sulfa (Sulfonamide Allergy Rash/Hives Verified 04/02/23 13:52 Antibiotics) tazobactam [From Zosyn] Allergy Itching Verified 04/02/23 13:52 Physical Exam Vitals: Vital Signs Temp Pulse Resp BP Pulse Ox 04/02/23 12:19 64 20 139/77 98 04/02/23 12:10 98.1 F 58 L 16 127/73 96 Intake and Output 04/02/23 04/02/23 04/02/23 06:59 14:59 22:59 Other: Weight 76.657 kg Results CBC & Chem 7: 04/02/23 13:19 04/02/23 13:19 Labs: Abnormal Lab Results - Last 24 Hours (Table) 04/02/23 04/02/23 Range/Units 13:19 13:19 RBC 4.17 L (4.30-5.90) m/uL MCV 103.9 H (80.0-100.0) fL Plt Count 149 L (150-450) k/uL Sodium 135 L (137-145) mmol/L Carbon Dioxide 31 H (22-30) mmol/L BUN 32 H (9-20) mg/dL Glucose 101 H (74-99) mg/dL Alkaline Phosphatase 201 H (38-126) U/L
[2023-04-02] MEDS: PANTOPRAZOLE 40 MG TABLET PO SCH (17:14)
[2023-04-02] MEDS: ENOXAPARIN 40 MG/0.4 ML SYRINGE SQ SCH ×2 (18:40→18:42)
[2023-04-02] MEDS ORDERED: OXYMETAZOLINE 0.05% NASL SPRAY 1 SPRAY BOTTLE NASAL PRN (23:32)
[2023-04-03] MEDS: guaiFENesin 600 MG TABLET.ER PO PRN ×3 (00:04→21:45)
[2023-04-03] MEDS: PSEUDOEPHEDRINE 30 MG TAB PO PRN ×2 (00:07→21:45)
[2023-04-03] MEDS: TEMAZEPAM 15 MG CAP PO PRN (00:07)
[2023-04-03] MEDS: VANCOMYCIN 1,500 MG in SODIUM CHLORIDE 0.9% 500 ML 500 ML IVPB SCH ×2 (05:43→17:01)
[2023-04-03 07:17] LABS: African American GFR (CKD) >90 (>60 ml/min/1.73 sqM); Non-African American GFR(CKD) >90 (>60 ml/min/1.73 sqM)
[2023-04-03] MEDS: SYMBICORT 160-4.5 MCG INHALER INHALATION SCH ×2 (08:16→18:17)
[2023-04-03] MEDS: ENOXAPARIN 40 MG/0.4 ML SYRINGE SQ SCH (10:42)
[2023-04-03] MEDS: PANTOPRAZOLE 40 MG TABLET PO SCH ×3 (10:45→20:52)
[2023-04-03] MEDS: SODIUM CHLORIDE 0.9% 1,000 ML IV SCH ×3 (10:46→17:03)
[2023-04-03] MEDS: METOPROLOL TARTRATE 12.5 MG TAB PO SCH (10:46)
[2023-04-03] MEDS: LORATADINE 10 MG TAB PO SCH (10:46)
--- NOTE | 2023-04-03 14:53 | P.PN ---
Progress Note - Text Progress Note Date: 04/03/23 Chief Complaint: Infection at PEG tube site This is a 78-year-old patient, follows Dr. Harish Matthews. 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 Magdaleno. Chronic stable medical conditions include chronic dysphagia may occasionally take a pill by mouth, PEG tube feeding takes 5 cans of Jevity a day, GERD, multiple myeloma, COPD, left vocal cord paralysis, partial right vocal cord paralysis, esophagitis, . Does use a 4 wheeled walker. Lives with his . Patient is a PEG tube site infection. He has taken antibiotic name he cannot remember for close to 4 weeks. Not improving. No fever no chills. Increased redness drainage around the PEG tube. Dr. Kevin Dill from [facility] will change the PEG tube once the infection is healed. She went down to see his limerock tower loader today. She was sent to the ER for IV in divided. April 03: Congested cough. Which is chronic. PEG tube bolus feeding started. IV vancomycin. Cultures pending. Active Medications Albuterol Sulfate (Albuterol Nebulized 2.5 Mg/3 Ml) 2.5 mg INHALATION RT-BID PRN PRN Reason: Shortness Of Breath Albuterol/Ipratropium (Ipratropium-Albuterol 3 Ml Neb) 3 ml INHALATION RT-TID PRN PRN Reason: Wheezing Budesonide/Formoterol Fumarate (Symbicort 160-4.5 Mcg Inhaler) 2 puff INHALATION RT-BID [facility] Last Admin: 04/03/23 08:16 Dose: 2 puff Enoxaparin Sodium (Enoxaparin 40 Mg/0.4 Ml Syringe) 40 mg SQ DAILY [facility] Last Admin: 04/03/23 10:42 Dose: Not Given Gabapentin (Gabapentin 300 Mg Cap) 600 mg PO HS PRN PRN Reason: Pain Guaifenesin (Guaifenesin 600 Mg Tablet.Er) 600 mg PO BID PRN PRN Reason: COUGHING Last Admin: 04/03/23 10:56 Dose: 600 mg Sodium Chloride (Saline 0.9%) 1,000 mls @ 75 mls/hr IV .[id number] [facility] Last Admin: 04/03/23 10:46 Dose: 75 mls/hr Vancomycin HCl 1,500 mg/ (Sodium Chloride) 500 mls @ 167 mls/hr IVPB Q12H [facility] Last Admin: 04/03/23 05:43 Dose: 167 mls/hr Loratadine (Loratadine 10 Mg Tab) 10 mg PO DAILY [facility] Last Admin: 04/03/23 10:46 Dose: 10 mg Metoprolol Tartrate (Metoprolol Tartrate 12.5 Mg Tab) 12.5 mg PO DAILY [facility] Last Admin: 04/03/23 10:46 Dose: 12.5 mg Miscellaneous Information (Vancomycin Trough Due 1 Each Misc) 0 each MISCELLANE DIRECTED ONE Stop: 04/04/23 04:01 Naloxone HCl (Naloxone 0.4 Mg/Ml 1 Ml Vial) 0.2 mg IV Q2M PRN PRN Reason: Opioid Reversal Oxymetazoline HCl (Oxymetazoline 0.05% Nasl [place] 1 [place] Bottle) 2 spray NASAL BID PRN PRN Reason: Nasal Congestion Last Admin: 04/03/23 00:04 Dose: 2 spray Pantoprazole Sodium (Pantoprazole 40 Mg Tablet) 40 mg PO AC-BID [facility] Last Admin: 04/03/23 10:45 Dose: 40 mg Pseudoephedrine HCl (Pseudoephedrine 30 Mg Tab) 30 mg PO Q6HR PRN PRN Reason: Nasal Congestion Last Admin: 04/03/23 00:07 Dose: 30 mg Temazepam (Temazepam 15 Mg Cap) 15 mg PO HS PRN PRN Reason: SLEEP Last Admin: 04/03/23 00:07 Dose: 15 mg Past medical history to include: Atrial fibrillation, COPD, stroke, GERD, prostatitis, rheumatoid arthritis, left vocal cord for last paralysis, right vocal cord partial paralysis, left upper palate partial paralysis, dysphagia midface had muscle wasting and weakness, PEG tube, Phillips's esophagus, BPH, multiple myeloma, home oxygen sometimes, abdominal aortic aneurysm, rheumatoid arthritis, pseudocyst of pancreas, 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 Does use a 4 wheel walker. 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 Patient smoked for 10 years 1 pack a day stopped in 1971. Physical examination: VITAL SIGNS: 98.3, 55, 16, 127/74, 94% room air GENERAL: BMI 25. Reclining in bed EYES: Pupils equal. Conjunctiva normal. HEENT: External appearance of nose and ears normal, oral cavity grossly normal. NECK: JVD not raised; masses not palpable. HEART: First and second heart sounds are normal; no edema. LUNGS: Respiratory rate normal; decreased breath sounds ABDOMEN: Soft, nontender, liver spleen not palpable, no masses palpable. PEG tube site: Surrounding cellulitis. Moist. Some daniel drainage. PSYCH: Alert and oriented x3; mood and affect normal. MUSCULOSKELETAL:No Clubbing/cyanosis;muscles-grossly intact. OA. NEUROLOGICAL: [Cranial nerves grossly intact; some facial asymmetry, intermittent tremor. Dysarthria. INVESTIGATIONS, reviewed in the clinical context: April 02: White count 6.1 hemoglobin 14.3 platelets 149 sodium 135 potassium 5 BUN 32 creatinine 0.73 Assessment and plan: -Acute PEG tube site incision infection with wound. With surrounding cellulitis. Failed outpatient treatment. IV vancomycin. Wound Gram stain and culture.-Pending -Pneumonia suspected gram-negative organism, suspected recurrent aspiration: Levaquin-7 days. Mucinex -COPD in a previous smoker. DuoNeb-when necessary, Symbicort -Phillips's esophagitis PPI -Chronic gait dysfunction, at her baseline uses a 4 wheeled walker -Mild protein calorie malnutrition. Dietitian consultation -PEG tube feeding 5 cans of Jevity a day. Dietitian consult -Paroxysmal atrial fibrillation, currently in sinus rhythm Lopressor -GERD PPI -Left vocal cord paralysis/right vocal cord paralysis, left upper palate partial paralysis, dysphagia from facial onset sensory motor neuropathy -BPH -Full code ASCUS. Continue vancomycin. Pending cultures.
[2023-04-04] MEDS ORDERED: VANCOMYCIN TROUGH DUE 1 EACH MISC MISCELLANE ONE (04:00)
[2023-04-04] MEDS: VANCOMYCIN 1,500 MG in SODIUM CHLORIDE 0.9% 500 ML 500 ML IVPB SCH (05:39)
[2023-04-04] MEDS: SODIUM CHLORIDE 0.9% 1,000 ML IV SCH ×2 (05:41→20:40)
[2023-04-04 05:44] LABS: Basophils % (A) 0 %; Eosinophils # (A) 0.1 k/uL (0-0.7); Eosinophils % (A) 2 %; HCT 40.2 % (39.0-53.0); Lymphocytes # (A) 1.1 k/uL (1.0-4.8); Lymphocytes % (A) 19 %; MCH 34.4 pg (25.0-35.0); MCHC 32.5 g/dL (31.0-37.0); MCV 105.8 fL (80.0-100.0); Macrocytosis Slight; Mean Platelet Volume 9.7; Monocytes # (A) 0.3 k/uL (0-1.0); Monocytes % (A) 6 %; Neutrophils % (A) 71 %; Platelet Count 138 k/uL (150-450); RDW 12.8 % (11.5-15.5); WBC 5.7 k/uL (3.8-10.6)
[2023-04-04 05:48] LABS: African American GFR (CKD) >90 (>60 ml/min/1.73 sqM); Non-African American GFR(CKD) >90 (>60 ml/min/1.73 sqM)
[2023-04-04] MEDS: ENOXAPARIN 40 MG/0.4 ML SYRINGE SQ SCH (09:09)
[2023-04-04] MEDS: SYMBICORT 160-4.5 MCG INHALER INHALATION SCH ×2 (09:15→20:27)
[2023-04-04] MEDS: PANTOPRAZOLE 40 MG TABLET PO SCH ×2 (09:17→20:40)
[2023-04-04] MEDS: guaiFENesin 600 MG TABLET.ER PO PRN ×2 (09:17→21:49)
[2023-04-04] MEDS: LORATADINE 10 MG TAB PO SCH (09:17)
[2023-04-04] MEDS: METOPROLOL TARTRATE 12.5 MG TAB PO SCH (09:17)
[2023-04-04] MEDS ORDERED: PIPERACILLIN-TAZOBACTAM 3.375 GM in SODIUM CHLORIDE 0.9% 100 ML IVPB STA (09:30)
[2023-04-04] MEDS: PIPERACILLIN-TAZOBACTAM 3.375 GM in SODIUM CHLORIDE 0.9% 100 ML IVPB SCH ×2 (15:51→23:36)
[2023-04-04] MEDS: PSYLLIUM HUSK 100% 6 GM PACKET PO SCH (15:51)
--- NOTE | 2023-04-04 17:39 | P.PN ---
Progress Note - Text Progress Note Date: 04/04/23 Chief Complaint: Infection at PEG tube site This is a 78-year-old patient, follows Dr. Harish Matthews. Personal Caregiver Dr. Magdaleno. Chronic stable medical conditions include chronic dysphagia may occasionally take a pill by mouth, PEG tube feeding takes 5 cans of Jevity a day, GERD, multiple myeloma, COPD, left vocal cord paralysis, partial right vocal cord paralysis, esophagitis, . Does use a 4 wheeled walker. Lives with his . Patient is a PEG tube site infection. He has taken antibiotic name he cannot remember for close to 4 weeks. Not improving. No fever no chills. Increased redness drainage around the PEG tube. Dr. Kevin Dill from [facility] will change the PEG tube once the infection is healed. She went down to see his welfare worker today. She was sent to the ER for IV in divided. April 03: Congested cough. Which is chronic. PEG tube bolus feeding started. IV vancomycin. Cultures pending. April 04: Laying in bed. at the bedside. Getting 2 feeding. Wound cultures growing gram-negative bacilli. IV Zosyn added. Discussed with patient and . Active Medications Albuterol Sulfate (Albuterol Nebulized 2.5 Mg/3 Ml) 2.5 mg INHALATION RT-BID PRN PRN Reason: Shortness Of Breath Albuterol/Ipratropium (Ipratropium-Albuterol 3 Ml Neb) 3 ml INHALATION RT-TID PRN PRN Reason: Wheezing Budesonide/Formoterol Fumarate (Symbicort 160-4.5 Mcg Inhaler) 2 puff INHALATION RT-BID [facility] Last Admin: 04/04/23 09:15 Dose: Not Given Enoxaparin Sodium (Enoxaparin 40 Mg/0.4 Ml Syringe) 40 mg SQ DAILY [facility] Last Admin: 04/04/23 09:09 Dose: Not Given Gabapentin (Gabapentin 300 Mg Cap) 600 mg PO HS PRN PRN Reason: Pain Guaifenesin (Guaifenesin 600 Mg Tablet.Er) 600 mg PO BID PRN PRN Reason: COUGHING Last Admin: 04/04/23 09:17 Dose: 600 mg Sodium Chloride (Saline 0.9%) 1,000 mls @ 75 mls/hr IV .[id number] [facility] Last Admin: 04/04/23 05:41 Dose: 75 mls/hr Vancomycin HCl 1,250 mg/ (Sodium Chloride) 250 mls @ 125 mls/hr IVPB Q12H [facility] Piperacillin Sod/Tazobactam (Sod 3.375 gm/ Sodium Chloride) 100 mls @ 25 mls/hr IVPB Q8HR [facility] Last Admin: 04/04/23 15:51 Dose: 25 mls/hr Loratadine (Loratadine 10 Mg Tab) 10 mg PO DAILY [facility] Last Admin: 04/04/23 09:17 Dose: 10 mg Metoprolol Tartrate (Metoprolol Tartrate 12.5 Mg Tab) 12.5 mg PO DAILY [facility] Last Admin: 04/04/23 09:17 Dose: 12.5 mg Naloxone HCl (Naloxone 0.4 Mg/Ml 1 Ml Vial) 0.2 mg IV Q2M PRN PRN Reason: Opioid Reversal Oxymetazoline HCl (Oxymetazoline 0.05% Nasl [place] 1 [place] Bottle) 2 spray NASAL BID PRN PRN Reason: Nasal Congestion Last Admin: 04/03/23 00:04 Dose: 2 spray Pantoprazole Sodium (Pantoprazole 40 Mg Tablet) 40 mg PO 799,1999 [facility] Last Admin: 04/04/23 09:17 Dose: 40 mg Pseudoephedrine HCl (Pseudoephedrine 30 Mg Tab) 30 mg PO Q6HR PRN PRN Reason: Nasal Congestion Last Admin: 04/03/23 21:45 Dose: 30 mg Psyllium Hydrophilic Mucilloid (Psyllium Husk 100% 6 Gm Packet) 6 gm PO DAILY [facility] Last Admin: 04/04/23 15:51 Dose: 6 gm Temazepam (Temazepam 15 Mg Cap) 15 mg PO HS PRN PRN Reason: SLEEP Last Admin: 04/03/23 00:07 Dose: 15 mg Past medical history to include: Atrial fibrillation, COPD, stroke, GERD, prostatitis, rheumatoid arthritis, left vocal cord for last paralysis, right vocal cord partial paralysis, left upper palate partial paralysis, dysphagia midface had muscle wasting and weakness, PEG tube, Phillips's esophagus, BPH, multiple myeloma, home oxygen sometimes, abdominal aortic aneurysm, rheumatoid arthritis, pseudocyst of pancreas, 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 Does use a 4 wheel walker. 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 Patient smoked for 10 years 1 pack a day stopped in 1971. Physical examination: VITAL SIGNS: 98.5, 57, 18, 129/75, 92% room air GENERAL: BMI 25. Reclining in bed EYES: Pupils equal. Conjunctiva normal. HEENT: External appearance of nose and ears normal, oral cavity grossly normal. NECK: JVD not raised; masses not palpable. HEART: First and second heart sounds are normal; no edema. LUNGS: Respiratory rate normal; decreased breath sounds ABDOMEN: Soft, nontender, liver spleen not palpable, no masses palpable. PEG tube site: Surrounding cellulitis. Moist. Some daniel drainage. PSYCH: Alert and oriented x3; mood and affect normal. MUSCULOSKELETAL:No Clubbing/cyanosis;muscles-grossly intact. OA. NEUROLOGICAL: [Cranial nerves grossly intact; some facial asymmetry, intermittent tremor. Dysarthria. INVESTIGATIONS, reviewed in the clinical context: April 04: White count 5.7 hemoglobin 13 platelets 138 creatinine 0.59 April 02: White count 6.1 hemoglobin 14.3 platelets 149 sodium 135 potassium 5 BUN 32 creatinine 0.73 Assessment and plan: -Acute PEG tube site incision infection with wound. With surrounding cellulitis. Failed outpatient treatment. IV vancomycin. IV Zosyn added. Wound to growing gram-negative bacilli. -COPD in a previous smoker. DuoNeb-when necessary, Symbicort -Phillips's esophagitis PPI -Chronic gait dysfunction, at her baseline uses a 4 wheeled walker -Mild protein calorie malnutrition. Dietitian consultation -PEG tube feeding 5 cans of Jevity a day. Dietitian consult -Paroxysmal atrial fibrillation, currently in sinus rhythm Lopressor -GERD PPI -Left vocal cord paralysis/right vocal cord paralysis, left upper palate partial paralysis, dysphagia from facial onset sensory motor neuropathy -BPH -Full code Discussed. IV Zosyn added.
[2023-04-04] MEDS: VANCOMYCIN 1,250 MG in SODIUM CHLORIDE 0.9% 250 ML IVPB SCH (18:45)
[2023-04-04] MEDS: GABAPENTIN 300 MG CAP PO PRN (21:49)
[2023-04-04] MEDS: PSEUDOEPHEDRINE 30 MG TAB PO PRN (21:49)
[2023-04-05] MEDS: VANCOMYCIN 1,250 MG in SODIUM CHLORIDE 0.9% 250 ML IVPB SCH (06:07)
[2023-04-05] MEDS: PIPERACILLIN-TAZOBACTAM 3.375 GM in SODIUM CHLORIDE 0.9% 100 ML IVPB SCH (08:15)
[2023-04-05] MEDS: PANTOPRAZOLE 40 MG TABLET PO SCH ×2 (08:15→21:20)
[2023-04-05] MEDS: METOPROLOL TARTRATE 12.5 MG TAB PO SCH (08:16)
[2023-04-05] MEDS: ENOXAPARIN 40 MG/0.4 ML SYRINGE SQ SCH (08:16)
[2023-04-05] MEDS: PSYLLIUM HUSK 100% 6 GM PACKET PO SCH (08:16)
[2023-04-05] MEDS: LORATADINE 10 MG TAB PO SCH (08:16)
[2023-04-05] MEDS: SYMBICORT 160-4.5 MCG INHALER INHALATION SCH ×2 (08:18→20:12)
[2023-04-05] MEDS: guaiFENesin 600 MG TABLET.ER PO PRN (08:22)
[2023-04-05] MEDS: PSEUDOEPHEDRINE 30 MG TAB PO PRN ×2 (08:33→21:19)
[2023-04-05 11:20] LABS: African American GFR (CKD) >90 (>60 ml/min/1.73 sqM); Non-African American GFR(CKD) >90 (>60 ml/min/1.73 sqM)
[2023-04-05] MEDS ORDERED: CEFEPIME 1 GM in SODIUM CHLORIDE 0.9% 50 ML IVPB SCH (14:00)
[2023-04-05] MEDS: SODIUM CHLORIDE 0.9% 1,000 ML IV SCH (14:24)
--- NOTE | 2023-04-05 16:19 | P.PN ---
Progress Note - Text Progress Note Date: 04/05/23 Chief Complaint: Infection at PEG tube site This is a 78-year-old patient, follows Dr. Harish Matthews. Donation Worker Dr. Magdaleno. Chronic stable medical conditions include chronic dysphagia may occasionally take a pill by mouth, PEG tube feeding takes 5 cans of Jevity a day, GERD, multiple myeloma, COPD, left vocal cord paralysis, partial right vocal cord paralysis, esophagitis, . Does use a 4 wheeled walker. Lives with his . Patient is a PEG tube site infection. He has taken antibiotic name he cannot remember for close to 4 weeks. Not improving. No fever no chills. Increased redness drainage around the PEG tube. Dr. Kevin Dill from [facility] will change the PEG tube once the infection is healed. She went down to see his intervention teacher today. She was sent to the ER for IV in divided. April 03: Congested cough. Which is chronic. PEG tube bolus feeding started. IV vancomycin. Cultures pending. April 04: Laying in bed. at the bedside. Getting 2 feeding. Wound cultures growing gram-negative bacilli. IV Zosyn added. Discussed with patient and . April 05: and daughter the bedside. Wound culture growing Klebsiella pneumoniae and Enterobacter cloacae. ID consulted. Antibiotic changed to IV cefepime. Discussed. 2 feeding to continue. Active Medications Albuterol Sulfate (Albuterol Nebulized 2.5 Mg/3 Ml) 2.5 mg INHALATION RT-BID PRN PRN Reason: Shortness Of Breath Albuterol/Ipratropium (Ipratropium-Albuterol 3 Ml Neb) 3 ml INHALATION RT-TID PRN PRN Reason: Wheezing Budesonide/Formoterol Fumarate (Symbicort 160-4.5 Mcg Inhaler) 2 puff INHALATION RT-BID [facility] Last Admin: 04/05/23 08:18 Dose: Not Given Enoxaparin Sodium (Enoxaparin 40 Mg/0.4 Ml Syringe) 40 mg SQ DAILY [facility] Last Admin: 04/05/23 08:16 Dose: Not Given Gabapentin (Gabapentin 300 Mg Cap) 600 mg PO HS PRN PRN Reason: Pain Last Admin: 04/04/23 21:49 Dose: 600 mg Guaifenesin (Guaifenesin 600 Mg Tablet.Er) 600 mg PO BID PRN PRN Reason: COUGHING Last Admin: 04/05/23 08:22 Dose: 600 mg Sodium Chloride (Saline 0.9%) 1,000 mls @ 75 mls/hr IV .[id number] [facility] Last Admin: 04/05/23 14:24 Dose: 75 mls/hr Vancomycin HCl 1,250 mg/ (Sodium Chloride) 250 mls @ 125 mls/hr IVPB Q12H [facility] Last Admin: 04/05/23 06:07 Dose: 125 mls/hr Cefepime HCl 1 gm/ Sodium (Chloride) 50 mls @ 12.5 mls/hr IVPB Q12HR@0000,1200 [facility]; Protocol Last Admin: 04/05/23 14:18 Dose: 12.5 mls/hr Loratadine (Loratadine 10 Mg Tab) 10 mg PO DAILY [facility] Last Admin: 04/05/23 08:16 Dose: 10 mg Metoprolol Tartrate (Metoprolol Tartrate 12.5 Mg Tab) 12.5 mg PO DAILY [facility] Last Admin: 04/05/23 08:16 Dose: 12.5 mg Miscellaneous Information (Vancomycin Trough Due 1 Each Misc) 1 each MISCELLANE ONCE ONE Stop: 04/06/23 05:01 Naloxone HCl (Naloxone 0.4 Mg/Ml 1 Ml Vial) 0.2 mg IV Q2M PRN PRN Reason: Opioid Reversal Oxymetazoline HCl (Oxymetazoline 0.05% Nasl [place] 1 [place] Bottle) 2 spray NASAL BID PRN PRN Reason: Nasal Congestion Last Admin: 04/03/23 00:04 Dose: 2 spray Pantoprazole Sodium (Pantoprazole 40 Mg Tablet) 40 mg PO 08,1999 [facility] Last Admin: 04/05/23 08:15 Dose: 40 mg Pseudoephedrine HCl (Pseudoephedrine 30 Mg Tab) 30 mg PO Q6HR PRN PRN Reason: Nasal Congestion Last Admin: 04/05/23 08:33 Dose: 30 mg Psyllium Hydrophilic Mucilloid (Psyllium Husk 100% 6 Gm Packet) 6 gm PO DAILY [facility] Last Admin: 04/05/23 08:16 Dose: Not Given Temazepam (Temazepam 15 Mg Cap) 15 mg PO HS PRN PRN Reason: SLEEP Last Admin: 04/03/23 00:07 Dose: 15 mg Past medical history to include: Atrial fibrillation, COPD, stroke, GERD, prostatitis, rheumatoid arthritis, left vocal cord for last paralysis, right vocal cord partial paralysis, left upper palate partial paralysis, dysphagia midface had muscle wasting and weakness, PEG tube, Phillips's esophagus, BPH, multiple myeloma, home oxygen sometimes, abdominal aortic aneurysm, rheumatoid arthritis, pseudocyst of pancreas, 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 Does use a 4 wheel walker. 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 Patient smoked for 10 years 1 pack a day stopped in 1971. Physical examination: VITAL SIGNS: 98.4, 83, 15, 122/88, 94% room air GENERAL: BMI 25. Reclining in bed EYES: Pupils equal. Conjunctiva normal. HEENT: External appearance of nose and ears normal, oral cavity grossly normal. NECK: JVD not raised; masses not palpable. HEART: First and second heart sounds are normal; no edema. LUNGS: Respiratory rate normal; decreased breath sounds ABDOMEN: Soft, nontender, liver spleen not palpable, no masses palpable. PEG tube site: Surrounding cellulitis. Moist. Some daniel drainage. PSYCH: Alert and oriented x3; mood and affect normal. MUSCULOSKELETAL:No Clubbing/cyanosis;muscles-grossly intact. OA. NEUROLOGICAL: [Cranial nerves grossly intact; some facial asymmetry, intermittent tremor. Dysarthria. INVESTIGATIONS, reviewed in the clinical context: April 04: White count 5.7 hemoglobin 13 platelets 138 creatinine 0.59 April 02: White count 6.1 hemoglobin 14.3 platelets 149 sodium 135 potassium 5 BUN 32 creatinine 0.73 Assessment and plan: -Acute PEG tube site incision infection with wound. With surrounding cellulitis. Failed outpatient treatment. IV vancomycin. IV cefepime added. Wound culture: Enterobacter cloacae, Pneumoniae. ID consulted -COPD in a previous smoker. DuoNeb-when necessary, Symbicort -Phillips's esophagitis PPI -Chronic gait dysfunction, at her baseline uses a 4 wheeled walker -Mild protein calorie malnutrition. Dietitian consultation -PEG tube feeding 5 cans of Jevity a day. Dietitian consult -Paroxysmal atrial fibrillation, currently in sinus rhythm Lopressor -GERD PPI -Left vocal cord paralysis/right vocal cord paralysis, left upper palate partial paralysis, dysphagia from facial onset sensory motor neuropathy -BPH -Full code IV cefepime. ID consulted. Discussed.
[2023-04-05] MEDS: GABAPENTIN 300 MG CAP PO PRN (21:20)
[2023-04-05] MEDS: guaiFENesin SYRUP 100MG/5ML 200 MG/10 ML CUP PO PRN (21:31)
[2023-04-05] MEDS: CEFEPIME 2 GM in SODIUM CHLORIDE 0.9% 100 ML IVPB SCH (23:39)
[2023-04-05] MEDS: TEMAZEPAM 15 MG CAP PO PRN (23:40)
[2023-04-06] MEDS ORDERED: CEFEPIME 2 GM in SODIUM CHLORIDE 0.9% 50 ML IVPB SCH ×2
[2023-04-06] MEDS ORDERED: VANCOMYCIN TROUGH DUE 1 EACH MISC MISCELLANE ONE (05:00)
[2023-04-06 06:57] LABS: African American GFR (CKD) >90 (>60 ml/min/1.73 sqM); Non-African American GFR(CKD) >90 (>60 ml/min/1.73 sqM)
--- NOTE | 2023-04-06 08:02 | P.CONS ---
History of Present Illness - Reason for Consult Consult date: 04/05/23 - History of Present Illness Patient is a 78-year-old male with a past medical history significant for atrial fibrillation reflux CVA TIA rheumatoid arthritis panel as well, oncologist in this patient who did have a PEG tube for feeding patient has been brought into the hospital 3 days ago with concern for anterior abdominal wall cellulitis in this patient who did have erythema and drainage from his PEG tube site that has been going on for about a week,The patient has been treated with a course of oral antibiotic without any improvement patient has been sent to the hospital for further evaluation and treatment of such patient on presentation to the hospital was afebrile and no fever has been recorded subsequently patient did have a normal white count kidney function has been normal liver enzymes are normal blood culture has been negative local culture did grew Enterobacter and Klebsiella #9 patient is currently on cefepime and vancomycin infectious disease was consulted for further management of antibiotic therapy this afternoon patient complaining of mostly drainage from his PEG tube site which is mostly purulent by the nursing staff patient did have mild L aching pain without any radiation denies have any nausea no vomiting tolerating his tube feeds and no diarrhea has been reported Past Medical History Past Medical History: Atrial Fibrillation, Blood Disorder, Cancer, COPD, CVA/TIA, GERD/Reflux, Pneumonia, Prostate Disorder, Rheumatoid Arthritis (RA), Vascular Disorder Additional Past Medical History / Comment(s): Facial onset sensory motor neuropathy (FOSMN) causes L vocal cord paralysis, R vocal cord partial paralys is, L upper palate partial paralysis, dysphagia,face/hand muscle wasting and weakness., has peg tube, hx:aspiration pneumonia., Phillips's esophagus, Hx of possible CVA., BPH., multiple myeloma , home oxygen at 2L/NC as needed , abdominal aortic aneurysm, rheumatoid arthritis,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 states fluid filled area on his elbow . History of Any Multi-Drug Resistant Organisms: None Reported Past Surgical History: Appendectomy, Hernia Repair, Orthopedic Surgery, Tonsillectomy Additional Past Surgical History / Comment(s): Field implant in throat, peg tube, EGDs, colonoscopy, R inguinal hernia, L foot bunionectomy, hemorrhoidec fernandez, L ring trigger finger release, nasal reconstruction, vocal cord surgery, cataracts/lens implants. no surgery on hip fx PEG TUBE left leg shorter than right after fracture healed Past Anesthesia/Blood Transfusion Reactions: No Reported Reaction Additional Past Anesthesia/Blood Transfusion Reaction / Comm: PARALYZED VOCAL CHORDS. Pt has received blood in past without reaction. Past Psychological History: No Psychological Hx Reported Additional Psychological History / Comment(s): . Smoking Status: Former smoker Past Alcohol Use History: None Reported Additional Past Alcohol Use History / Comment(s): Patient started smoking 1961 and quit in 1971-smoked 1 ppd. Past Drug Use History: None Reported - Past Family History Sister(s) Additional Family Medical History / Comment(s): passed colon CA Brother(s) Additional Family Medical History / Comment(s): sarcidosis Mother Family Medical History: COPD Additional Family Medical History / Comment(s): lung CA Son(s) Family Medical History: Hypertension Additional Family Medical History / Comment(s): lymphoma, sarcoidosis Father Family Medical History: No Reported History Additional Family Medical History / Comment(s): Father was healthy Medications and Allergies Home Medications Medication Instructions Recorded Confirmed Type Fluticasone/Vilanterol [Breo 1 puff INHALATION RT-DAILY 10/24/18 04/02/23 History Ellipta 200-25 Mcg Inhaler] Metoprolol Tartrate [Lopressor] 12.5 mg PO DAILY 12/26/18 04/02/23 History Gabapentin 600 mg PO HS PRN 04/16/22 04/02/23 History Ramelteon 8 mg PO HS PRN 04/16/22 04/02/23 History guaiFENesin [Mucinex] 600 mg PO BID PRN 04/19/22 04/02/23 History Pantoprazole [Protonix] 40 mg PO BID #60 tab 04/23/22 04/02/23 Rx Loratadine [Claritin] 10 mg PO DAILY 03/23/23 04/02/23 History Albuterol Nebulized [Ventolin 2.5 mg INHALATION RT-BID PRN 04/02/23 04/02/23 History Nebulized] Cephalexin [Keflex] 500 mg PO QID 04/02/23 04/02/23 History Ipratropium/Albuter 20-100Mcg 1 puff INHALATION RT-QID PRN 04/02/23 04/02/23 History [Combivent Respimat 20-100Mcg Inhaler] Pseudoephedrine [Sudafed] 30 mg PO 0800,2200 04/03/23 04/03/23 History Allergies Allergy/AdvReac Type Severity Reaction Status Date / Time Penicillins Allergy Itching/David Verified 04/02/23 13:52 h piperacillin [From Zosyn] Allergy Itching Verified 04/02/23 13:52 Sulfa (Sulfonamide Allergy Rash/Hives Verified 04/02/23 13:52 Antibiotics) tazobactam [From Zosyn] Allergy Itching Verified 04/02/23 13:52 Physical Exam Vitals: Vital Signs Temp Pulse Resp BP Pulse Ox 04/05/23 12:25 98.4 F 83 15 122/88 94 L 04/05/23 07:40 98.1 F 55 L 16 149/77 95 04/05/23 02:00 98.3 F 53 L 16 135/72 95 04/04/23 20:00 98.7 F 60 17 133/67 92 L Intake and Output 04/05/23 04/05/23 04/05/23 06:59 14:59 22:59 Intake Total 100 Output Total 400 700 Balance -400 -600 Intake: Intake, IV Titration 100 Amount Piperacillin-Tazobactam 3 100 .375 gm In Sodium Chloride 0.9% 100 ml @ 25 mls/hr IVPB Q8HR [facility] Rx# :[id number] Output: Urine 400 700 Other: Weight 78 kg Results CBC & Chem 7: 04/04/23 05:02 04/06/23 05:37 Labs: Abnormal Lab Results - Last 24 Hours (Table) 04/05/23 Range/Units 10:19 Creatinine 0.65 L (0.66-1.25) mg/dL Microbiology - Last 24 Hours (Table) 04/02/23 13:19 Blood Culture - Preliminary Blood 04/02/23 13:04 Blood Culture - Preliminary Blood 04/02/23 13:19 Gram Stain - Final Abdomen Wound Culture - Final Enterobacter cloacae Klebsiella pneumoniae Assessment and Plan Plan: 1patient present to hospital with the PEG tube site swelling redness and some purulent drainage concerning for cellulitis failing outpatient oral antibiotic therapy. 2patient with multiple antibiotic allergies that would limit the number of antibiotics safe to use 3local culture did grew out drug-resistant Enterobacter along with Klebsiella. 4we will check a CT of abdominal pelvis to make sure no evidence of any abscess that may need to be drained surgically. 5increase the dose of cefepime to 2 g every 8 hours and discontinue vancomycin. 6mark the area of the redness. We will follow on clinical condition and cultures to further adjust medication if needed Thank you for this consultation we will follow the patient along with you Dictation was produced using [employer] dictation software. please excuse any grammatical, word or spelling errors. Time with Patient: Greater than 30
[2023-04-06] MEDS: SYMBICORT 160-4.5 MCG INHALER INHALATION SCH ×2 (08:11→19:32)
[2023-04-06] MEDS: LORATADINE 10 MG TAB PO SCH (08:41)
[2023-04-06] MEDS: PANTOPRAZOLE 40 MG TABLET PO SCH ×2 (08:41→19:46)
[2023-04-06] MEDS: CEFEPIME 2 GM in SODIUM CHLORIDE 0.9% 100 ML IVPB SCH ×2 (08:41→16:42)
[2023-04-06] MEDS: PSYLLIUM HUSK 100% 6 GM PACKET PO SCH (08:42)
[2023-04-06] MEDS: METOPROLOL TARTRATE 12.5 MG TAB PO SCH (08:42)
[2023-04-06] MEDS: ENOXAPARIN 40 MG/0.4 ML SYRINGE SQ SCH (08:42)
[2023-04-06] MEDS: IOPAMIDOL CONTRAST (ORAL USE) VIAL PO PRN ×2 (11:11→12:29)
[2023-04-06 11:53] VITALS: BMI 25.4
--- NOTE | 2023-04-06 13:09 | CT ---
EXAMINATION TYPE: CT abdomen pelvis w con CT DLP: 1621 mGycm, Automated exposure control for dose reduction was used. DATE OF EXAM: 04/06/2023 12:57 PM COMPARISON: CT abdomen pelvis most recent from 12/02/2020. CLINICAL INDICATION:Male, 78 years old with history of abd wall abscess at PEG tube site; abd pain TECHNIQUE: Standard CT of the abdomen and pelvis following the administration of 100 cc of Isovue 3 00 IV contrast material and oral contrast. Coronal and sagittal reformats were performed. FINDINGS: LOWER CHEST: Trace right pleural effusion with associated atelectasis. Elevation of the right hemidia phragm. Left lower lobe subsegmental atelectasis. Moderate coronary artery calcifications. Bilateral gynecomastia. ABDOMEN LIVER: Unremarkable GALLBLADDER AND BILE DUCTS: Gallbladder is surgically absent with mild intrahepatic and extra hepatic biliary dilatation likely physiologic and a postcholecystectomy change. No evidence of choledocholit hiasis. PANCREAS: Stable 1 cm hypodense cystic lesion within the pancreatic body (series 3, image 41). Previo usly reported as a pseudocyst. No pancreatic ductal dilatation. SPLEEN: Unremarkable. ADRENAL GLANDS: Unremarkable. KIDNEYS AND URETERS: No evidence of hydronephrosis or renal calculus. The kidneys enhance symmetrical ly. Stable subcentimeter right renal cyst. Contrast is demonstrated within both collecting systems on the delayed phase. PELVIS BLADDER: Unremarkable REPRODUCTIVE: Prostate is enlarged in size measuring 5.6 cm in transverse dimension. ABDOMEN & PELVIS STOMACH AND BOWEL: Enteric contrast demonstrated within the visualized distal esophagus. PEG tube is in appropriate position without surrounding abscess. No extravasation of enteric contrast. Colonic di verticulosis without evidence for acute diverticulitis. Enteric contrast reaches the ileocecal juncti on. No evidence of bowel obstruction. PERITONEUM: No evidence of pneumoperitoneum or free fluid. VASCULATURE: Mild atherosclerotic calcifications are present throughout the abdominal aorta and its b ranches. No evidence of aortic aneurysm. MUSCULOSKELETAL: No acute osseous abnormalities. Moderate disc degeneration changes are present throu ghout the thoracolumbar spine. LYMPH NODES: No gross evidence for lymphadenopathy. SOFT TISSUE/ABDOMINAL WALL: Unremarkable IMPRESSION: 1. No acute intra-abdominal/pelvic process. 2. PEG tube is in appropriate position without surrounding fluid collection or inflammatory changes. No extravasation of enteric contrast. 3. Enteric contrast demonstrated within the distal esophagus suggesting reflux. 4. Trace right pleural effusion with associated atelectasis. Chronic elevation of the right hemidiaph ragm. 5. Colonic diverticulosis without evidence for acute diverticulitis.
[2023-04-06] MEDS: SODIUM CHLORIDE 0.9% 1,000 ML IV SCH ×2 (14:17→16:22)
--- NOTE | 2023-04-06 17:34 | P.PN ---
Progress Note - Text Progress Note Date: 04/06/23 Chief Complaint: Infection at PEG tube site This is a 78-year-old patient, follows Dr. Harish Matthews. Clocksmith Dr. Magdaleno. Chronic stable medical conditions include chronic dysphagia may occasionally take a pill by mouth, PEG tube feeding takes 5 cans of Jevity a day, GERD, multiple myeloma, COPD, left vocal cord paralysis, partial right vocal cord paralysis, esophagitis, . Does use a 4 wheeled walker. Lives with his . Patient is a PEG tube site infection. He has taken antibiotic name he cannot remember for close to 4 weeks. Not improving. No fever no chills. Increased redness drainage around the PEG tube. Dr. Kevin Dill from [facility] will change the PEG tube once the infection is healed. She went down to see his receiving teller today. She was sent to the ER for IV in divided. April 03: Congested cough. Which is chronic. PEG tube bolus feeding started. IV vancomycin. Cultures pending. April 04: Laying in bed. at the bedside. Getting 2 feeding. Wound cultures growing gram-negative bacilli. IV Zosyn added. Discussed with patient and . April 05: and daughter the bedside. Wound culture growing Klebsiella pneumoniae and Enterobacter cloacae. ID consulted. Antibiotic changed to IV cefepime. Discussed. 2 feeding to continue. April 06: I saw the patient this morning. Patient seen by ID. Vancomycin was discontinued. A computed tomography scan of the abdomen was ordered for this afternoon. That did not show any evidence of abscess. Blood cultures are pending till now. Tolerating PEG tube feeding. Active Medications Albuterol Sulfate (Albuterol Nebulized 2.5 Mg/3 Ml) 2.5 mg INHALATION RT-BID PRN PRN Reason: Shortness Of Breath Albuterol/Ipratropium (Ipratropium-Albuterol 3 Ml Neb) 3 ml INHALATION RT-TID PRN PRN Reason: Wheezing Budesonide/Formoterol Fumarate (Symbicort 160-4.5 Mcg Inhaler) 2 puff INHALATION RT-BID [facility] Last Admin: 04/06/23 08:11 Dose: Not Given Enoxaparin Sodium (Enoxaparin 40 Mg/0.4 Ml Syringe) 40 mg SQ DAILY [facility] Last Admin: 04/06/23 08:42 Dose: Not Given Gabapentin (Gabapentin 300 Mg Cap) 600 mg PO HS PRN PRN Reason: Pain Last Admin: 04/05/23 21:20 Dose: 600 mg Guaifenesin (Guaifenesin Syrup 100mg/5ml 200 Mg/10 Ml Cup) 600 mg PO BID PRN PRN Reason: COUGHING Last Admin: 04/05/23 21:31 Dose: 600 mg Sodium Chloride (Saline 0.9%) 1,000 mls @ 75 mls/hr IV .[id number] [facility] Last Admin: 04/06/23 16:22 Dose: 75 mls/hr Cefepime HCl 2 gm/ Sodium (Chloride) 100 mls @ 25 mls/hr IVPB Q8HR [facility] Last Admin: 04/06/23 16:42 Dose: 25 mls/hr Loratadine (Loratadine 10 Mg Tab) 10 mg PO DAILY [facility] Last Admin: 04/06/23 08:41 Dose: 10 mg Metoprolol Tartrate (Metoprolol Tartrate 12.5 Mg Tab) 12.5 mg PO DAILY [facility] Last Admin: 04/06/23 08:42 Dose: 12.5 mg Naloxone HCl (Naloxone 0.4 Mg/Ml 1 Ml Vial) 0.2 mg IV Q2M PRN PRN Reason: Opioid Reversal Oxymetazoline HCl (Oxymetazoline 0.05% Nasl [place] 1 [place] Bottle) 2 spray NASAL BID PRN PRN Reason: Nasal Congestion Last Admin: 04/03/23 00:04 Dose: 2 spray Pantoprazole Sodium (Pantoprazole 40 Mg Tablet) 40 mg PO 08,1999 [facility] Last Admin: 04/06/23 08:41 Dose: 40 mg Pseudoephedrine HCl (Pseudoephedrine 30 Mg Tab) 30 mg PO Q6HR PRN PRN Reason: Nasal Congestion Last Admin: 04/05/23 21:19 Dose: 30 mg Psyllium Hydrophilic Mucilloid (Psyllium Husk 100% 6 Gm Packet) 6 gm PO DAILY [facility] Last Admin: 04/06/23 08:42 Dose: Not Given Temazepam (Temazepam 15 Mg Cap) 15 mg PO HS PRN PRN Reason: SLEEP Last Admin: 04/05/23 23:40 Dose: 15 mg Past medical history to include: Atrial fibrillation, COPD, stroke, GERD, prostatitis, rheumatoid arthritis, left vocal cord for last paralysis, right vocal cord partial paralysis, left upper palate partial paralysis, dysphagia midface had muscle wasting and weakness, PEG tube, Phillips's esophagus, BPH, multiple myeloma, home oxygen sometimes, abdominal aortic aneurysm, rheumatoid arthritis, pseudocyst of pancreas, 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 Does use a 4 wheel walker. 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 Patient smoked for 10 years 1 pack a day stopped in 1971. Physical examination: VITAL SIGNS: 98.6, 58, 18, 137/82, 95% room air GENERAL: BMI 25. Reclining in bed EYES: Pupils equal. Conjunctiva normal. HEENT: External appearance of nose and ears normal, oral cavity grossly normal. NECK: JVD not raised; masses not palpable. HEART: First and second heart sounds are normal; no edema. LUNGS: Respiratory rate normal; decreased breath sounds ABDOMEN: Soft, nontender, liver spleen not palpable, no masses palpable. PEG tube site: Surrounding cellulitis. Moist. Some drainage. PSYCH: Alert and oriented x3; mood and affect normal. MUSCULOSKELETAL:No Clubbing/cyanosis;muscles-grossly intact. OA. NEUROLOGICAL: [Cranial nerves grossly intact; some facial asymmetry, intermittent tremor. Dysarthria. INVESTIGATIONS, reviewed in the clinical context: Computed tomography scan abdomen: No evidence of abscess. April 06: Procalcitonin 0.06 April 04: White count 5.7 hemoglobin 13 platelets 138 creatinine 0.59 April 02: White count 6.1 hemoglobin 14.3 platelets 149 sodium 135 potassium 5 BUN 32 creatinine 0.73 Assessment and plan: -Acute PEG tube site incision infection with wound. With surrounding cellulitis. Failed outpatient treatment. IV vancomycin-discontinued. IV cefepime Wound culture: Enterobacter cloacae, Pneumoniae. Computed tomography scan abdomen: No evidence of abscess ID following -COPD in a previous smoker. DuoNeb-when necessary, Symbicort -Phillips's esophagitis PPI -Chronic gait dysfunction, at her baseline uses a 4 wheeled walker -Mild protein calorie malnutrition. Dietitian consultation -PEG tube feeding 5 cans of Jevity a day. Dietitian consult -Paroxysmal atrial fibrillation, currently in sinus rhythm Lopressor -GERD PPI -Left vocal cord paralysis/right vocal cord paralysis, left upper palate partial paralysis, dysphagia from facial onset sensory motor neuropathy -BPH -Full code IV cefepime. Computed tomography scan is as noted. Antibiotics per ID.
--- NOTE | 2023-04-06 18:05 | P.PN ---
Subjective Progress Note Date: 04/06/23 Principal diagnosis: PEG tube site cellulitis Patient is a 78-year-old male with a past medical history significant for atrial fibrillation reflux CVA TIA rheumatoid arthritis panel as well, oncologist in this patient who did have a PEG tube for feeding patient has been brought into the hospital with concern for anterior abdominal wall cellulitis in this patient who did have erythema and drainage from his PEG tube site, patient local culture positive for Enterobacter and Klebsiella. On today's evaluation that is04/06/2023, the patient remains to be afebrile, the patient is breathing comfortably , the patient denies having any chest pain or cough, the patient denies nausea and vomiting, the patient denies any worsening pain around the back to side and the redness has slightly decreased. The CBC was done today, patient did have CT of abdominal pelvis did not mention any abscess Objective - Vital Signs Vital signs: Vital Signs Temp 98.6 F 04/06/23 12:21 Pulse 58 L 04/06/23 12:21 Resp 18 04/06/23 12:21 BP 137/82 04/06/23 12:21 Pulse Ox 95 04/06/23 12:21 FiO2 Intake & Output 04/05/23 04/06/23 04/06/23 18:59 06:59 18:59 Intake Total 1050 Output Total 700 550 Balance 350 -550 Weight 78 kg 78 kg Intake: Intake, IV Titration 1050 Amount Cefepime 1 gm In Sodium 50 Chloride 0.9% 50 ml @ 12. 5 mls/hr IVPB Q12HR@0000, 1200 [facility] Rx#:[id number] Piperacillin-Tazobactam 3 100 .375 gm In Sodium Chloride 0.9% 100 ml @ 25 mls/hr IVPB Q8HR [facility] Rx# :[id number] Sodium Chloride 0.9% 1, 900 000 ml @ 75 mls/hr IV . [id number] [facility] Rx#:[id number] Output: Urine 700 550 Other: Voiding Method Toilet - Exam GENERAL DESCRIPTION: An elderly male lying in bed in no distress RESPIRATORY SYSTEM: Unlabored breathing , decreased breath sounds at bases HEART: S1 S2 regular rate and rhythm , ABDOMEN: Soft , PEG tube site and redness has slightly decreased EXTREMITIES: No edema feet - Labs CBC & Chem 7: 04/04/23 05:02 04/06/23 05:37 Labs: Abnormal Lab Results - Last 24 Hours (Table) 04/06/23 Range/Units 05:37 Creatinine 0.62 L (0.66-1.25) mg/dL Microbiology - Last 24 Hours (Table) 04/02/23 13:19 Blood Culture - Preliminary Blood 04/02/23 13:04 Blood Culture - Preliminary Blood Assessment and Plan (1) Abdominal wall cellulitis Current Visit: Yes Status: Acute Code(s): L03.311 - CELLULITIS OF ABDOMINAL WALL SNOMED Code(s): 22523983 Plan: 1patient present to hospital with the PEG tube site swelling redness and some purulent drainage concerning for cellulitis failing outpatient oral antibiotic therapy. 2patient with multiple antibiotic allergies that would limit the number of antibiotics safe to use 3local culture did grew out drug-resistant Enterobacter along with Klebsiella. 4patient did have CT of abdominal pelvis without evidence of any abscess 5patient to continue with cefepime to 2 g every 8 hours for another 24-48 hour before transition to oral antibiotics Dictation was produced using [employer] dictation software. please excuse any grammatical, word or spelling errors. Time with Patient: Less than 30
[2023-04-06] MEDS: guaiFENesin SYRUP 100MG/5ML 200 MG/10 ML CUP PO PRN (19:46)
[2023-04-06] MEDS: PSEUDOEPHEDRINE 30 MG TAB PO PRN (20:26)
[2023-04-06] MEDS: TEMAZEPAM 15 MG CAP PO PRN (22:43)
[2023-04-06] MEDS: GABAPENTIN 300 MG CAP PO PRN (22:43)
[2023-04-07] MEDS: CEFEPIME 2 GM in SODIUM CHLORIDE 0.9% 100 ML IVPB SCH ×3 (00:16→15:51)
[2023-04-07 06:45] LABS: Basophils % (A) 0 %; Eosinophils # (A) 0.3 k/uL (0-0.7); Eosinophils % (A) 4 %; HCT 37.4 % (39.0-53.0); HGB 12.5 gm/dL (13.0-17.5); Lymphocytes % (A) 16 %; MCH 35.3 pg (25.0-35.0); MCHC 33.4 g/dL (31.0-37.0); MCV 105.8 fL (80.0-100.0); Macrocytosis Moderate; Mean Platelet Volume 10.4; Monocytes # (A) 0.5 k/uL (0-1.0); Monocytes % (A) 8 %; Neutrophils # (A) 4.2 k/uL (1.3-7.7); Neutrophils % (A) 69 %; Platelet Count 131 k/uL (150-450); RBC 3.53 m/uL (4.30-5.90); RDW 12.8 % (11.5-15.5); WBC 6.1 k/uL (3.8-10.6)
[2023-04-07 07:34] LABS: African American GFR (CKD) >90 (>60 ml/min/1.73 sqM); Anion Gap 1 mmol/L; Blood Urea Nitrogen 18 mg/dL (9-20); Calcium 8.7 mg/dL (8.4-10.2); Carbon Dioxide 31 mmol/L (22-30); Chloride 102 mmol/L (98-107); Glucose 84 mg/dL (74-99); Non-African American GFR(CKD) >90 (>60 ml/min/1.73 sqM); Potassium 4.4 mmol/L (3.5-5.1); Sodium 134 mmol/L (137-145)
[2023-04-07] MEDS: ENOXAPARIN 40 MG/0.4 ML SYRINGE SQ SCH (07:42)
[2023-04-07] MEDS: LORATADINE 10 MG TAB PO SCH (07:53)
[2023-04-07] MEDS: METOPROLOL TARTRATE 12.5 MG TAB PO SCH (07:53)
[2023-04-07] MEDS: PANTOPRAZOLE 40 MG TABLET PO SCH ×2 (07:53→21:47)
[2023-04-07] MEDS: PSYLLIUM HUSK 100% 6 GM PACKET PO SCH (08:02)
[2023-04-07] MEDS ORDERED: NAPROXEN 250 MG TAB PO PRN (08:12)
[2023-04-07] MEDS ORDERED: guaiFENesin 600 MG TABLET.ER PO PRN (08:12)
[2023-04-07] MEDS: SYMBICORT 160-4.5 MCG INHALER INHALATION SCH ×2 (08:28→19:57)
[2023-04-07] MEDS: guaiFENesin 600 MG TABLET.ER PO PRN ×2 (09:32→21:48)
[2023-04-07] MEDS: SODIUM CHLORIDE 0.9% 1,000 ML IV SCH ×2 (17:18→21:52)
--- NOTE | 2023-04-07 17:32 | P.PN ---
Progress Note - Text Progress Note Date: 04/07/23 Chief Complaint: Infection at PEG tube site This is a 78-year-old patient, follows Dr. Harish Matthews. Garment [employer] Dr. Magdaleno. Chronic stable medical conditions include chronic dysphagia may occasionally take a pill by mouth, PEG tube feeding takes 5 cans of Jevity a day, GERD, multiple myeloma, COPD, left vocal cord paralysis, partial right vocal cord paralysis, esophagitis, . Does use a 4 wheeled walker. Lives with his . Patient is a PEG tube site infection. He has taken antibiotic name he cannot remember for close to 4 weeks. Not improving. No fever no chills. Increased redness drainage around the PEG tube. Dr. Kevin Dill from [facility] will change the PEG tube once the infection is healed. She went down to see his guidance secretary today. She was sent to the ER for IV in divided. April 03: Congested cough. Which is chronic. PEG tube bolus feeding started. IV vancomycin. Cultures pending. April 04: Laying in bed. at the bedside. Getting 2 feeding. Wound cultures growing gram-negative bacilli. IV Zosyn added. Discussed with patient and . April 05: and daughter the bedside. Wound culture growing Klebsiella pneumoniae and Enterobacter cloacae. ID consulted. Antibiotic changed to IV cefepime. Discussed. 2 feeding to continue. April 06: I saw the patient this morning. Patient seen by ID. Vancomycin was discontinued. A computed tomography scan of the abdomen was ordered for this afternoon. That did not show any evidence of abscess. Blood cultures are pending till now. Tolerating PEG tube feeding. April 07: Cellulitis site improving. Drainage decreasing. On IV cefepime. Discussed with patient and . Being followed by ID. Active Medications Albuterol Sulfate (Albuterol Nebulized 2.5 Mg/3 Ml) 2.5 mg INHALATION RT-BID PRN PRN Reason: Shortness Of Breath Albuterol/Ipratropium (Ipratropium-Albuterol 3 Ml Neb) 3 ml INHALATION RT-TID PRN PRN Reason: Wheezing Budesonide/Formoterol Fumarate (Symbicort 160-4.5 Mcg Inhaler) 2 puff INHALATION RT-BID [facility] Last Admin: 04/07/23 08:28 Dose: Not Given Enoxaparin Sodium (Enoxaparin 40 Mg/0.4 Ml Syringe) 40 mg SQ DAILY [facility] Last Admin: 04/07/23 07:42 Dose: Not Given Gabapentin (Gabapentin 300 Mg Cap) 600 mg PO HS PRN PRN Reason: Pain Last Admin: 04/06/23 22:43 Dose: 600 mg Guaifenesin (Guaifenesin Syrup 100mg/5ml 200 Mg/10 Ml Cup) 600 mg PO BID PRN PRN Reason: COUGHING Last Admin: 04/06/23 19:46 Dose: 600 mg Guaifenesin (Guaifenesin 600 Mg Tablet.Er) 600 mg PO Q12HR PRN PRN Reason: Congestion Last Admin: 04/07/23 09:32 Dose: 600 mg Sodium Chloride (Saline 0.9%) 1,000 mls @ 75 mls/hr IV .[id number] [facility] Last Admin: 04/07/23 17:18 Dose: 75 mls/hr Cefepime HCl 2 gm/ Sodium (Chloride) 100 mls @ 25 mls/hr IVPB Q8HR [facility] Last Admin: 04/07/23 15:51 Dose: 25 mls/hr Loratadine (Loratadine 10 Mg Tab) 10 mg PO DAILY [facility] Last Admin: 04/07/23 07:53 Dose: 10 mg Metoprolol Tartrate (Metoprolol Tartrate 12.5 Mg Tab) 12.5 mg PO DAILY [facility] Last Admin: 04/07/23 07:53 Dose: 12.5 mg Naloxone HCl (Naloxone 0.4 Mg/Ml 1 Ml Vial) 0.2 mg IV Q2M PRN PRN Reason: Opioid Reversal Naproxen (Naproxen 250 Mg Tab) 250 mg PO QID PRN PRN Reason: Moderate Pain (Scale 4 to 6) Oxymetazoline HCl (Oxymetazoline 0.05% Nasl [place] 1 [place] Bottle) 2 spray NASAL BID PRN PRN Reason: Nasal Congestion Last Admin: 04/03/23 00:04 Dose: 2 spray Pantoprazole Sodium (Pantoprazole 40 Mg Tablet) 40 mg PO 0800,1999 [facility] Last Admin: 04/07/23 07:53 Dose: 40 mg Pseudoephedrine HCl (Pseudoephedrine 30 Mg Tab) 30 mg PO Q6HR PRN PRN Reason: Nasal Congestion Last Admin: 04/06/23 20:26 Dose: 30 mg Psyllium Hydrophilic Mucilloid (Psyllium Husk 100% 6 Gm Packet) 6 gm PO DAILY [facility] Last Admin: 04/07/23 08:02 Dose: 6 gm Temazepam (Temazepam 15 Mg Cap) 15 mg PO HS PRN PRN Reason: SLEEP Last Admin: 04/06/23 22:43 Dose: 15 mg Past medical history to include: Atrial fibrillation, COPD, stroke, GERD, prostatitis, rheumatoid arthritis, left vocal cord for last paralysis, right vocal cord partial paralysis, left upper palate partial paralysis, dysphagia midface had muscle wasting and weakness, PEG tube, Phillips's esophagus, BPH, multiple myeloma, home oxygen sometimes, ab dominal aortic aneurysm, rheumatoid arthritis, pseudocyst of pancreas, 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 Does use a 4 wheel walker. 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 Patient smoked for 10 years 1 pack a day stopped in 1971. Physical examination: VITAL SIGNS: 99.3, 102, 18, 139/87, 93% room air GENERAL: BMI 25. Reclining in bed EYES: Pupils equal. Conjunctiva normal. HEENT: External appearance of nose and ears normal, oral cavity grossly normal. NECK: JVD not raised; masses not palpable. HEART: First and second heart sounds are normal; no edema. LUNGS: Respiratory rate normal; decreased breath sounds ABDOMEN: Soft, nontender, liver spleen not palpable, no masses palpable. PEG tube site: Surrounding cellulitis. Moist. Some drainage. : Improving PSYCH: Alert and oriented x3; mood and affect normal. MUSCULOSKELETAL:No Clubbing/cyanosis;muscles-grossly intact. OA. NEUROLOGICAL: [Cranial nerves grossly intact; some facial asymmetry, intermittent tremor. Dysarthria. INVESTIGATIONS, reviewed in the clinical context: April 07: White count 6.1 hemoglobin 12.5 potassium 4.4 creatinine 0.58 Computed tomography scan abdomen: No evidence of abscess. April 06: Procalcitonin 0.06 April 04: White count 5.7 hemoglobin 13 platelets 138 creatinine 0.59 April 02: White count 6.1 hemoglobin 14.3 platelets 149 sodium 135 potassium 5 BUN 32 creatinine 0.73 Assessment and plan: -Acute PEG tube site incision infection with wound. With surrounding cell ulitis. Failed outpatient treatment. IV vancomycin-discontinued. IV cefepime Wound culture: Enterobacter cloacae, Pneumoniae. Computed tomography scan abdomen: No evidence of abscess ID following -COPD in a previous smoker. DuoNeb-when necessary, Symbicort -Phillips's esophagitis PPI -Chronic gait dysfunction, at her baseline uses a 4 wheeled walker -Mild protein calorie malnutrition. Dietitian consultation -PEG tube feeding 5 cans of Jevity a day. Dietitian consult -Paroxysmal atrial fibrillation, currently in sinus rhythm Lopressor -GERD PPI -Left vocal cord paralysis/right vocal cord paralysis, left upper palate partial paralysis, dysphagia from facial onset sensory motor neuropathy -BPH -Full code Discussed with patient and . Follow anxiety.
--- NOTE | 2023-04-07 17:40 | P.PN ---
Subjective Progress Note Date: 04/07/23 Principal diagnosis: PEG tube site cellulitis Patient is a 78-year-old male with a past medical history significant for atrial fibrillation reflux CVA TIA rheumatoid arthritis panel as well, oncologist in this patient who did have a PEG tube for feeding patient has been brought into the hospital with concern for anterior abdominal wall cellulitis in this patient who did have erythema and drainage from his PEG tube site, patient local culture positive for Enterobacter and Klebsiella. On today's evaluation that is 04/07/2023, the patient denies any fever or any chills, the patient is breathing comfortably , the patient denies chest pain or cough, the patient denies nausea and vomiting no abdominal pain and redness around the PEG tube has decreased in intensity no further drainage Patient white count of 6.1 creatinine 0.58, patient did have CT of abdominal pelvis did not mention any abscess Objective - Vital Signs Vital signs: Vital Signs Temp 99.3 F 04/07/23 12:29 Pulse 102 H 04/07/23 12:29 Resp 18 04/07/23 12:29 BP 139/87 04/07/23 12:29 Pulse Ox 93 L 04/07/23 12:29 FiO2 Intake & Output 04/06/23 04/07/23 04/07/23 18:59 06:59 18:59 Intake Total 1000 Output Total 600 Balance 400 Weight 78 kg 77.5 kg Intake: Intake, IV Titration 1000 Amount Cefepime 2 gm In Sodium 100 Chloride 0.9% 100 ml @ 25 mls/hr IVPB Q8HR [facility] Rx# :[id number] Sodium Chloride 0.9% 1, 900 000 ml @ 75 mls/hr IV . [id number] [facility] Rx#:[id number] Output: Urine 600 Other: Voiding Method Toilet Toilet # Bowel Movements 1 - Exam GENERAL DESCRIPTION: An elderly male lying in bed in no distress RESPIRATORY SYSTEM: Unlabored breathing , decreased breath sounds at bases HEART: S1 S2 regular rate and rhythm , ABDOMEN: Soft , PEG tube site and redness has slightly decreased EXTREMITIES: No edema feet - Labs CBC & Chem 7: 04/07/23 06:06 04/07/23 06:06 Labs: Abnormal Lab Results - Last 24 Hours (Table) 04/07/23 04/07/23 Range/Units 06:06 06:06 RBC 3.53 L (4.30-5.90) m/uL Hgb 12.5 L (13.0-17.5) gm/dL Hct 37.4 L (39.0-53.0) % MCV 105.8 H (80.0-100.0) fL MCH 35.3 H (25.0-35.0) pg Plt Count 131 L (150-450) k/uL Sodium 134 L (137-145) mmol/L Carbon Dioxide 31 H (22-30) mmol/L Creatinine 0.58 L (0.66-1.25) mg/dL Assessment and Plan (1) Abdominal wall cellulitis Current Visit: Yes Status: Acute Code(s): L03.311 - CELLULITIS OF ABDOMINAL WALL SNOMED Code(s): 86463124 Plan: 1patient present to hospital with the PEG tube site swelling redness and some purulent drainage concerning for cellulitis failing outpatient oral antibiotic t herapy. 2patient with multiple antibiotic allergies that would limit the number of antibiotics safe to use 3local culture did grew out drug-resistant Enterobacter along with Klebsiella. 4patient did have CT of abdominal pelvis without evidence of any abscess 5patient to continue with cefepime to 2 g every 8 hours for another 24 hour before transition to oral Cipro on discharge this was discussed with the family the bedside Dictation was produced using [employer] dictation software. please excuse any grammatical, word or spelling errors. Time with Patient: Less than 30
[2023-04-07] MEDS: PSEUDOEPHEDRINE 30 MG TAB PO PRN (21:47)
[2023-04-07] MEDS ORDERED: TEMAZEPAM 7.5 MG CAP PO PRN (22:02)
[2023-04-07] MEDS: GABAPENTIN 300 MG CAP PO PRN (22:20)
[2023-04-08] MEDS: CEFEPIME 2 GM in SODIUM CHLORIDE 0.9% 100 ML IVPB SCH ×2 (00:08→08:26)
[2023-04-08] MEDS: SYMBICORT 160-4.5 MCG INHALER INHALATION SCH (07:38)
[2023-04-08] MEDS: PANTOPRAZOLE 40 MG TABLET PO SCH (08:26)
[2023-04-08] MEDS: METOPROLOL TARTRATE 12.5 MG TAB PO SCH (08:26)
[2023-04-08] MEDS: LORATADINE 10 MG TAB PO SCH (08:26)
[2023-04-08] MEDS: ENOXAPARIN 40 MG/0.4 ML SYRINGE SQ SCH (08:26)
[2023-04-08] MEDS: PSYLLIUM HUSK 100% 6 GM PACKET PO SCH (08:26)
[2023-04-08 08:27] VITALS: BP 125/80; PULSE 66; RESP 18; TEMP 98.3
--- NOTE | 2023-04-08 15:47 | P.DS ---
Providers Date of admission: 04/02/23 17:11 Expected date of discharge: 04/08/23 Attending physician: Taco Carrillo Consults: 04/05/23 13:21 Consult Physician Routine Consulting Provider: Darling Reyes Consult Reason/Comments: peg site infection Do you want consulting provider notified?: Yes Primary care physician: Harish Alvarado [facility] Course: Chief Complaint: Infection at PEG tube site This is a 78-year-old patient, follows Dr. Harish Matthews. Forepart [place] Dr. Magdaleno. Chronic stable medical conditions include chronic dysphagia may occasionally take a pill by mouth, PEG tube feeding takes 5 cans of Jevity a day, GERD, multiple myeloma, COPD, left vocal cord paralysis, partial right vocal cord paralysis, esophagitis, . Does use a 4 wheeled walker. Lives with his . Patient is a PEG tube site infection. He has taken antibiotic name he cannot remember for close to 4 weeks. Not improving. No fever no chills. Increased redness drainage around the PEG tube. Dr. Kevin Dill from [facility] will change the PEG tube once the infection is healed. She went down to see his nurse auditor today. She was sent to the ER for IV in divided. April 03: Congested cough. Which is chronic. PEG tube bolus feeding started. IV vancomycin. Cultures pending. April 04: Laying in bed. at the bedside. Getting 2 feeding. Wound cultures growing gram-negative bacilli. IV Zosyn added. Discussed with patient and . April 05: and daughter the bedside. Wound culture growing Klebsiella pneumoniae and Enterobacter cloacae. ID consulted. Antibiotic changed to IV cefepime. Discussed. 2 feeding to continue. April 06: I saw the patient this morning. Patient seen by ID. Vancomycin was discontinued. A computed tomography scan of the abdomen was ordered for this afternoon. That did not show any evidence of abscess. Blood cultures are pending till now. Tolerating PEG tube feeding. April 07: Cellulitis site improving. Drainage decreasing. On IV cefepime. Discussed with patient and . Being followed by ID. April 08: Cellulitis much better. Ciprofloxacin 5 mg twice a day for 5 days per ID. Discussed with patient. Cleared by ID to go home. 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 Does use a 4 wheel walker. 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 Patient smoked for 10 years 1 pack a day stopped in 1971. Physical examination: VITAL SIGNS: 98.3, 66, 18, 125/80, 93% on 2 L GENERAL: BMI 25. Reclining in bed EYES: Pupils equal. Conjunctiva normal. HEENT: External appearance of nose and ears normal, oral cavity grossly normal. NECK: JVD not raised; masses not palpable. HEART: First and second heart sounds are normal; no edema. LUNGS: Respiratory rate normal; decreased breath sounds ABDOMEN: Soft, nontender, liver spleen not palpable, no masses palpable. PEG tube site: Surrounding cellulitis. : Better PSYCH: Alert and oriented x3; mood and affect normal. MUSCULOSKELETAL:No Clubbing/cyanosis;muscles-grossly intact. OA. NEUROLOGICAL: [Cranial nerves grossly intact; some facial asymmetry, intermittent tremor. Dysarthria. INVESTIGATIONS, reviewed in the clinical context: April 07: White count 6.1 hemoglobin 12.5 potassium 4.4 creatinine 0.58 Computed tomography scan abdomen: No evidence of abscess. April 06: Procalcitonin 0.06 April 04: White count 5.7 hemoglobin 13 platelets 138 creatinine 0.59 April 02: White count 6.1 hemoglobin 14.3 platelets 149 sodium 135 potassium 5 BUN 32 creatinine 0.73 Assessment and plan: -Acute PEG tube site incision infection with wound. With surrounding cellulitis. Failed outpatient treatment.: Improved IV vancomycin-discontinued. IV cefepime Wound culture: Enterobacter cloacae, Pneumoniae. Computed tomography scan abdomen: No evidence of abscess ID following Discharge home with 5 days of ciprofloxacin 5 mg twice a day -COPD in a previous smoker. DuoNeb-when necessary, Symbicort -Phillips's esophagitis PPI -Chronic gait dysfunction, at her baseline uses a 4 wheeled walker -Mild protein calorie malnutrition. Dietitian consultation -PEG tube feeding 5 cans of Jevity a day. Dietitian consult -Paroxysmal atrial fibrillation, currently in sinus rhythm Lopressor -GERD PPI -Left vocal cord paralysis/right vocal cord paralysis, left upper palate partial paralysis, dysphagia from facial onset sensory motor neuropathy -BPH -Full code Disposition: Home Plan - Discharge Summary Discharge Rx Participant: No New Discharge Prescriptions: New Ciprofloxacin HCl [Cipro] 500 mg PO BID 10 Days #20 tab Psyllium Husk 100% [Metamucil Packet] 6 gm PO DAILY packet Continue Fluticasone/Vilanterol [Breo Ellipta 200-25 Mcg Inhaler] 1 puff INHALATION RT-DAILY Metoprolol Tartrate [Lopressor] 12.5 mg PO DAILY Gabapentin 600 mg PO HS PRN PRN Reason: Pain Pantoprazole [Protonix] 40 mg PO BID #60 tab Pseudoephedrine [Sudafed] 30 mg PO 0800,2200 Ramelteon 8 mg PO HS PRN PRN Reason: SLEEP guaiFENesin [Mucinex] 600 mg PO BID PRN PRN Reason: COUGHING Loratadine [Claritin] 10 mg PO DAILY Albuterol Nebulized [Ventolin Nebulized] 2.5 mg INHALATION RT-BID PRN PRN Reason: Shortness Of Breath Ipratropium/Albuter 20-100Mcg [Combivent Respimat 20-100Mcg Inhaler] 1 puff INHALATION RT-QID PRN PRN Reason: Shortness Of Breath Discontinued Cephalexin [Keflex] 500 mg PO QID Discharge Medication List Fluticasone/Vilanterol [Breo Ellipta 200-25 Mcg Inhaler] 1 puff INHALATION RT- DAILY 10/24/18 [History] Metoprolol Tartrate [Lopressor] 12.5 mg PO DAILY 12/26/18 [History] Gabapentin 600 mg PO HS PRN 04/16/22 [History] Ramelteon 8 mg PO HS PRN 04/16/22 [History] guaiFENesin [Mucinex] 600 mg PO BID PRN 04/19/22 [History] Pantoprazole [Protonix] 40 mg PO BID #60 tab 04/23/22 [Rx] Loratadine [Claritin] 10 mg PO DAILY 03/23/23 [History] Albuterol Nebulized [Ventolin Nebulized] 2.5 mg INHALATION RT-BID PRN 04/02/23 [History] Ipratropium/Albuter 20-100Mcg [Combivent Respimat 20-100Mcg Inhaler] 1 puff INHALATION RT-QID PRN 04/02/23 [History] Pseudoephedrine [Sudafed] 30 mg PO 0800,2200 04/03/23 [History] Ciprofloxacin HCl [Cipro] 500 mg PO BID 10 Days #20 tab 04/08/23 [Rx] Psyllium Husk 100% [Metamucil Packet] 6 gm PO DAILY packet 04/08/23 [Rx] Follow up Appointment(s)/Referral(s): Harish Alvarado DO [Primary Care Provider] - 04/17/23 1:00 pm Darling Reyes MD [STAFF PHYSICIAN] - 04/16/23 3:15 pm Patient Instructions/Handouts: Ciprofloxacin (By mouth) Discharge Disposition: HOME SELF-CARE
== END 2023-04-08 12:30 | disposition home or self-care (01) | DRG 393 ==
LOC: EC 12:08 → 5NMEDONC 14:22 → OBSVTOIN 17:11 → 5NMEDONC 17:38
PROVIDERS: ADMIT Hospitalist; ATTEND Hospitalist
DX: K94.22 Gastrostomy infection (principal); J15.6 Pneumonia due to other Gram-negative bacteria; J69.0 Pneumonitis due to inhalation of food and vomit; L03.311 Cellulitis of abdominal wall; J44.0 Chronic obstructive pulmonary disease with (acute) lower respiratory infection; C90.00 Multiple myeloma not having achieved remission; E44.1 Mild protein-calorie malnutrition; J38.01 Paralysis of vocal cords and larynx, unilateral; I48.0 Paroxysmal atrial fibrillation; M06.9 Rheumatoid arthritis, unspecified; I71.40 Abdominal aortic aneurysm, without rupture, unspecified; B96.1 Klebsiella pneumoniae [K. pneumoniae] as the cause of diseases classified elsewhere; R13.10 Dysphagia, unspecified; B96.89 Other specified bacterial agents as the cause of diseases classified elsewhere; K21.00 Gastro-esophageal reflux disease with esophagitis, without bleeding; G51.9 Disorder of facial nerve, unspecified; K22.70 Barrett's esophagus without dysplasia; F41.9 Anxiety disorder, unspecified; N40.0 Benign prostatic hyperplasia without lower urinary tract symptoms; R47.1 Dysarthria and anarthria; M62.50 Muscle wasting and atrophy, not elsewhere classified, unspecified site; R26.9 Unspecified abnormalities of gait and mobility; Z68.24 Body mass index [BMI] 24.0-24.9, adult; Z79.51 Long term (current) use of inhaled steroids; Z79.899 Other long term (current) drug therapy; Z86.73 Personal history of transient ischemic attack (TIA), and cerebral infarction without residual deficits; Z87.891 Personal history of nicotine dependence; Z71.3 Dietary counseling and surveillance; Z88.1 Allergy status to other antibiotic agents; Z88.0 Allergy status to penicillin; Z88.2 Allergy status to sulfonamides; Y83.3 Surgical operation with formation of external stoma as the cause of abnormal reaction of the patient, or of later complication, without mention of misadventure at the time of the procedure; Y92.009 Unspecified place in unspecified non-institutional (private) residence as the place of occurrence of the external cause
CPT/HCPCS: 36415; 74177; 80048; 80053; 80202; 82565; 83605; 83735; 84145; 85025; 87040; 87070; 87077; 87186; 87205; 94640; 96365; 96366; 96367; 99284

== ENCOUNTER 2023-06-16 11:03 | Day surgery (SDC) | payer MEDICARE ==
[2023-06-16 12:49] VITALS: RESP 18; TEMP 98.2
[2023-06-16] MEDS ORDERED: PROPOFOL 10 MG/ML 20 ML VIAL IV ONE (13:18)
[2023-06-16] MEDS ORDERED: LIDOCAINE 2% (PF) 20 MG/ML 5 ML VIAL ONE (13:18)
--- NOTE | 2023-06-16 13:34 | P.PCN ---
Date of Procedure: 06/16/23 Procedure(s) Performed: BRIEF HISTORY: Patient is a 78-year-old, pleasant, male with history of oropharyngeal dysphagia related to facial sensorimotor neuropathy diagnosed in 2016 . Since then he had a PEG tube placed and scheduled for an EGD with PEG tube replacement today. PROCEDURE PERFORMED: Esophagogastroduodenoscopy with PEG tube replacement. PREOPERATIVE DIAGNOSIS: Oropharyngeal dysphagia/history of PEG tube placement in 2069. IV sedation per anesthesia. PROCEDURE: After informed consent was obtained, the patient was brought into the endoscopy unit. IV sedation was administered by Anesthesia under continuous monitoring. Initially the Olympus GIF-140 video endoscope was inserted into the mouth. Esophagus intubated without any difficulty. It was gradually advanced into the stomach and duodenum and carefully examined. The bulb and the second part of the duodenum appeared normal. The scope at this time was withdrawn to the stomach, adequately insufflated with air, and upon careful examination, mucosa of the antrum, body, cardia and the fundus appeared normal. The internal bumper of the PEG tube was identified without any difficulty. Using traction the PEG tube was pulled out. A guidewire was passed from the existing gastrostomy site which was held by the snare that was passed through the scope and gently withdrawn along with the scope. A 20-Azerbaijani PEG tube was passed over the guidewire and was gently advanced into the stomach and gradually pulled out of the abdomen wall until the internal bumper appeared to be secured along the gastric wall. The external bumper was located at 3 cm channing, At this time repeat EGD was performed. Scope was advanced into the stomach. The internal bumper appeared to be in good position. The scope was then withdrawn into the esophagus. Small hiatal hernia noted. The GE junction was located at 39 cm from the incisors. The esophagus appeared normal. There were no erosions or ulcerations seen and the patient tolerated the procedure well. IMPRESSION: 1. Successful 20-Azerbaijani PEG tube replacement as described above. 2. Small hiatal hernia. RECOMMENDATIONS: The findings of this examination were discussed with the patient as well as his family. He was advised to resume PEG tube feeds this afternoon..
[2023-06-16] MEDS ORDERED: IV FLUID CONTINUATION 1,000 ML IV ONE (13:39)
[2023-06-16 14:16] VITALS: BP 124/79; PULSE 54
== END 2023-06-16 14:31 | disposition home or self-care (01) ==
LOC: ORWHC2ENDO 11:03
PROVIDERS: ATTEND Internal Medicine Gastroenterology
DX: Z93.1 Gastrostomy status (principal); I48.91 Unspecified atrial fibrillation; K44.9 Diaphragmatic hernia without obstruction or gangrene; I10 Essential (primary) hypertension; J44.9 Chronic obstructive pulmonary disease, unspecified; K21.9 Gastro-esophageal reflux disease without esophagitis; Z88.0 Allergy status to penicillin; Z79.899 Other long term (current) drug therapy; Z88.2 Allergy status to sulfonamides; Z86.73 Personal history of transient ischemic attack (TIA), and cerebral infarction without residual deficits; Z90.89 Acquired absence of other organs; Z98.890 Other specified postprocedural states
CPT/HCPCS: 43246

== ENCOUNTER 2024-04-04 13:13 | Emergency (ER) | payer MEDICARE, OTHER ==
[2024-04-04 13:18] VITALS: TEMP 98.3
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
[2024-04-04 17:34] VITALS: BP 103/75; PULSE 67; RESP 18
== END 2024-04-04 17:44 | disposition home or self-care (01) ==
LOC: EC 13:13
CPT/HCPCS: 71046; 72170; 99284

== ENCOUNTER 2024-07-12 10:30 | Emergency (ER) | payer MEDICARE ==
--- NOTE | 2024-07-12 11:24 | ED ---
General Adult HPI - General Source: patient, RN notes reviewed Mode of arrival: ambulatory Limitations: no limitations <Brandee Agee - Last Filed: 07/12/24 11:23> <Fernando Egan - Last Filed: 07/12/24 13:42> - General Chief complaint: Recheck/Abnormal Lab/Rx Stated complaint: coughing up blood Time Seen by Provider: 07/12/24 10:55 - History of Present Illness Initial comments: Quick [id number] male presenting to the department for reevaluation. he was admitted yesterday to outside ER however left AMA. Patient went for evaluation of hemoptysis that occurred during noon yesterday and patient was diagnosed with pneumonia and started on azithromycin and steroids. Currently, patient is denying shortness of breath, chest pain, difficulty breathing. States he has not had any episodes of mopped assist today. Denies blood thinner use. follows with Dr. Magdaleno (Brandee Agee) Dictation was produced using [employer] dictation software. please excuse any grammatical, word or spelling errors. Chief Complaint: 79-year-old male presents to the emergency department for hemoptysis History of Present Illness: Patient is 79-year-old male he has multiple comorbidities including multiple myeloma, A-fib hypertension. He was seen and evaluated initially at [facility]. States that they were extremely busy and he was in the holding area. He had full evaluation was given antibiotics and told that he was going to be admitted for inpatient bronchoscope. Due to lack of beds he was in the holding area and did not want to wait any longer so he left AGAINST MEDICAL ADVICE. His primary care doctor and oncologist and system configuration specialist are based out of our area. Patient states yesterday he had a bout of coughing where there was some streaks of blood in his sputum. Denies any ch est pain. No constitutional symptoms. The ROS documented in this emergency department record has been reviewed and confirmed by me. Those systems with pertinent positive or negative responses have been documented in the HPI. All other systems are other negative and/or noncontributory. (Fernando Egan) - Related Data Home Medications Medication Instructions Recorded Confirmed Fluticasone/Vilanterol [Breo 1 puff INHALATION RT-DAILY 10/24/18 04/04/24 Ellipta 200-25 Mcg Inhaler] Metoprolol Tartrate [Lopressor] 12.5 mg PO DAILY 12/26/18 04/04/24 Gabapentin 600 mg PO HS 04/16/22 04/04/24 Ramelteon 8 mg PO HS 04/16/22 04/04/24 guaiFENesin [Mucinex] 600 mg PO BID PRN 04/19/22 04/04/24 Loratadine [Claritin] 10 mg PO DAILY 03/23/23 04/04/24 Albuterol Sulfate [Albuterol 2 puff PO RT-Q4H PRN 04/04/24 04/04/24 Sulfate Hfa] Ipratropium-Albuterol Nebulize 3 ml INHALATION RT-QID PRN 04/04/24 04/04/24 [Duoneb 0.5 mg-3 mg/3 ml Soln] Previous Rx's Medication Instructions Recorded Pantoprazole [Protonix] 40 mg PO BID #60 tab 04/23/22 Azithromycin [Zithromax Z Pack] 1 tab PO DIRECTED #6 tab 07/12/24 Allergies Allergy/AdvReac Type Severity Reaction Status Date / Time azithromycin Allergy Swelling Verified 07/12/24 10:43 Penicillins Allergy Itching/David Verified 07/12/24 10:43 h piperacillin [From Zosyn] Allergy Itching Verified 07/12/24 10:43 Sulfa (Sulfonamide Allergy Rash/Hives Verified 07/12/24 10:43 Antibiotics) tazobactam [From Zosyn] Allergy Itching Verified 07/12/24 10:43 Review of Systems ROS Other: All systems not noted in ROS Statement are negative. <Brandee Agee - Last Filed: 07/12/24 11:23> ROS Other: All systems not noted in ROS Statement are negative. <Fernando Egan - Last Filed: 07/12/24 13:42> ROS Statement: Those systems with pertinent positive or pertinent negative responses have been documented in the HPI. 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 sensitive rt elbow. History of Any Multi-Drug Resistant Organisms: None Reported Past Surgical History: Appendectomy, Hernia Repair, Orthopedic Surgery, Tonsillectomy Additional Past Surgical History / Comment(s): Field implant in throat ( vocal cords), peg tube, EGDs, colonoscopy, R inguinal hernia, L foot bunionectomy, hemorrhoidectomy, L ring trigger finger release, nasal reconstruction, cataracts/lens implants. no surgery on hip fx PEG TUBE left leg shorter than right after fracture healed Past Anesthesia/Blood Transfusion Reactions: No Reported Reaction Additional Past Anesthesia/Blood Transfusion Reaction / Comment(s): somewhat PARALYZED VOCAL CHORDS. Pt has received blood in past without reaction. sometimes slow to wake up. Past Psychological History: No Psychological Hx Reported Smoking Status: Former smoker Past Alcohol Use History: None Reported Past Drug Use History: None Reported - Past Family History Sister(s) Additional Family Medical History / Comment(s): passed colon CA Brother(s) Additional Family Medical History / Comment(s): sarcidosis Mother Family Medical History: COPD Additional Family Medical History / Comment(s): emphysema Son(s) Family Medical History: Hypertension Additional Family Medical History / Comment(s): lymphoma, sarcoidosis Father Family Medical History: No Reported History Additional Family Medical History / Comment(s): Father was healthy <Brandee Agee - Last Filed: 07/12/24 11:23> General Exam Limitations: no limitations <Brandee Agee - Last Filed: 07/12/24 11:23> <Fernando Egan - Last Filed: 07/12/24 13:42> - General Exam Comments Initial Comments: Visual Physical Exam Vital signs reviewed General: Well-appearing, nontoxic, no acute distress. Head: Normocephalic, atraumatic Eyes: PERRLA, EOMI ENT: Airway patent Chest: Nonlabored breathing Skin: No visual rash, normal skin tone Neuro: Alert and oriented 3 Musculoskeletal: No gross abnormalities (Brandee Agee) PHYSICAL EXAM: General Impression: Alert and oriented x3, not in acute distress HEENT: Normocephalic atraumatic, extra-ocular movements intact, pupils equal and reactive to light bilaterally, mucous membranes moist. Cardiovascular: Heart regular rate and rhythm Chest: Able to complete full sentences, no retractions, no tachypnea Abdomen: abdomen soft, non-tender, non-distended, no organomegaly, feeding tube in place Musculoskeletal: Pulses present and equal in all extremities, no peripheral edema Motor: no focal deficits noted Neurological: CN II-XII grossly intact, no focal motor or sensory deficits noted Skin: Intact with no visualized rashes Psych: Normal affect and mood (Fernando Egan) Course Vital Signs 07/12/24 10:37 Temperature 98.4 F Pulse Rate 70 Respiratory 18 Rate Blood Pressure 126/75 O2 Sat by Pulse 93 L Oximetry Medical Decision Making <Brandee Agee - Last Filed: 07/12/24 11:23> - Lab Data Result diagrams: 07/12/24 11:35 07/12/24 11:35 <Fernando Egan - Last Filed: 07/12/24 13:42> - Medical Decision Making I completed the quick note portion of this chart signed Brandee Agee PA-C (Brandee Agee) Was pt. sent in by a medical professional or institution (ALAINA Jacobs, THERMODYNAMICS TEACHER, urgent care, hospital, or long term...) When possible be specific @ -No Did you speak to anyone other than the patient for history (EMS, parent, family, police, friend...)? What history was obtained from this source @ -No Did you review nursing and triage notes (agree or disagree)? Why? @ -I reviewed and agree with nursing and triage notes Were old charts reviewed (outside hosp., previous admission, EMS record, old EKG, old radiological studies, urgent care reports/EKG's, long term records)? Report findings @ -No old charts were reviewed Differential Diagnosis (chest pain, altered mental status, abdominal pain women, abdominal pain men, vaginal bleeding, musculoskeletal, weakness, fever, dyspnea, syncope, headache, dizziness, GI bleed, back pain, seizure, CVA, palpatations, mental health)? @ -Differential Dyspnea: Coronary syndrome, arrhythmia, tamponade, asthma, COPD, pulmonary embolism, pneumonia, pneumothorax, pulmonary effusion, anaphylaxis, diabetic ketoacidosis, flailed chest, pulmonary contusion, diaphragmatic rupture, anemia, neuromuscular , this is not meant to be an all-inclusive list. EKG interpreted by me (3pts min.). @ -None done X-rays interpreted by me (1pt min.). @ -Two-view chest x-ray is nonacute CT interpreted by me (1pt min.). @ -None done U/S interpreted by me (1pt. min.). @ -None done What testing was considered but not performed or refused? (CT, X-rays, U/S, labs)? Why? @ -None What meds were considered but not given or refused? Why? @ -None Was smoking cessation discussed for >3mins.? @ -No Were there social determinants of health that impacted care today? How? (Homelessness, low income, unemployed, alcoholism, drug addiction, transportation, low edu. Level, literacy, decrease access to med. care, usp, rehab)? @ -No Was there de-escalation of care discussed even if they declined (Discuss DNR or withdrawal of care, Hospice)? DNR status @ -No What co-morbidities impacted this encounter? (DM, HTN, Smoking, COPD, CAD, Cancer, CVA, ARF, Chemo, Hep., AIDS, mental health diagnosis, sleep apnea, morbi d obesity)? @ -Chronic lung disease Was patient admitted / discharged? Hospital course, mention meds given and route, prescriptions, significant lab abnormalities, going to OR and other pertinent info. @ -79-year-old male presents to our hospital for hemoptysis. He was seen at [facility] left A due to lack of beds. Vital signs stable. Patient well- appearing at the bedside. Patient has no high risk features states that he had some blood streaked of his sputum from coughing. Patient well-appearing in no acute distress. Case discussed with Dr. Chung who would like to see the patien t in office. Patient given prescription for Zithromax discharge. Return precautions discussed. Did you discuss the management of the patient with other professionals (professionals i.e. , PA, THERMODYNAMICS TEACHER, lab, RT, psych nurse, social media assistant, leasing coordinator, teacher, physics technical officer, community case manager)? Give summary @ -No Was critical care preformed (if so, how long)? @ -No Undiagnosed new problem with uncertain prognosis? @ -No Drug Therapy requiring intensive monitoring for toxicity (Heparin, Nitro, Insulin, Cardizem)? @ -No Were any procedures done? @ -No Diagnosis/symptom? Acute, or Chronic, or Acute on Chronic? Uncomplicated (without systemic symptoms) or Complicated (systemic symptoms)? @ -Hemoptysis Side effects of treatment? @ -No Exacerbation, Progression, or Severe Exacerbation? @ -No Poses a threat to life or bodily function? How? (Chest pain, USA, NH, pneumonia, PE, COPD, DKA, ARF, appy, cholecystitis, CVA, Diverticulitis, Homicidal, Suicidal, threat to staff... and all critical care pts) @ -No (Fernando Egan) - Lab Data Lab Results 07/12/24 07/12/24 07/12/24 Range/Units 11:35 11:35 11:35 WBC 6.9 (3.8-10.6) k/uL RBC 4.42 (4.30-5.90) m/uL Hgb 14.9 (13.0-17.5) gm/dL Hct 46.0 (39.0-53.0) % MCV 104.1 H (80.0-100.0) fL MCH 33.7 (25.0-35.0) pg MCHC 32.3 (31.0-37.0) g/dL RDW 13.2 (11.5-15.5) % Plt Count 143 L (150-450) k/uL MPV 9.9 Neutrophils % 85 % Lymphocytes % 10 % Monocytes % 4 % Eosinophils % 0 % Basophils % 0 % Neutrophils # 5.9 (1.3-7.7) k/uL Lymphocytes # 0.7 L (1.0-4.8) k/uL Monocytes # 0.3 (0-1.0) k/uL Eosinophils # 0.0 (0-0.7) k/uL Basophils # 0.0 (0-0.2) k/uL Macrocytosis Slight PT 10.4 (10.0-12.5) sec INR 0.9 (<1.2) APTT 23.3 (22.0-30.0) sec Sodium 136 L (137-145) mmol/L Potassium 4.7 (3.5-5.1) mmol/L Chloride 100 (98-107) mmol/L Carbon Dioxide 31 H (22-30) mmol/L Anion Gap 5 mmol/L BUN 38 H (9-20) mg/dL Creatinine 0.74 (0.66-1.25) mg/dL Est GFR (CKD-EPI)AfAm >90 (>60 ml/min/1.73 sqM) Est GFR (CKD-EPI)NonAf 87 (>60 ml/min/1.73 sqM) Glucose 146 H (74-99) mg/dL Calcium 9.3 (8.4-10.2) mg/dL Total Bilirubin 0.7 (0.2-1.3) mg/dL AST 38 (17-59) U/L ALT 51 H (4-49) U/L Alkaline Phosphatase 227 H (38-126) U/L Total Protein 7.3 (6.3-8.2) g/dL Albumin 4.0 (3.5-5.0) g/dL Disposition <Brandee Agee - Last Filed: 07/12/24 11:23> Is patient prescribed a controlled substance at d/c from ED?: No Time of Disposition: 13:42 <Fernando Egan - Last Filed: 07/12/24 13:42> Clinical Impression: Hemoptysis Disposition: HOME SELF-CARE Condition: Fair Prescriptions: Azithromycin [Zithromax Z Pack] 1 tab PO DIRECTED #6 tab Referrals: Gina Magdaleno MD [STAFF PHYSICIAN] - 1-2 days
[2024-07-12 11:58] LABS: Basophils % (A) 0 %; Eosinophils % (A) 0 %; HGB 14.9 gm/dL (13.0-17.5); Lymphocytes # (A) 0.7 k/uL (1.0-4.8); Lymphocytes % (A) 10 %; MCH 33.7 pg (25.0-35.0); MCHC 32.3 g/dL (31.0-37.0); MCV 104.1 fL (80.0-100.0); Macrocytosis Slight; Mean Platelet Volume 9.9; Monocytes # (A) 0.3 k/uL (0-1.0); Monocytes % (A) 4 %; Neutrophils # (A) 5.9 k/uL (1.3-7.7); Neutrophils % (A) 85 %; Platelet Count 143 k/uL (150-450); RBC 4.42 m/uL (4.30-5.90); RDW 13.2 % (11.5-15.5); WBC 6.9 k/uL (3.8-10.6)
[2024-07-12 12:08] LABS: INR 0.9 (<1.2); Partial Thromboplastin Time 23.3 sec (22.0-30.0); Prothrombin Time 10.4 sec (10.0-12.5)
[2024-07-12 12:10] LABS: ALT 51 U/L (4-49); AST 38 U/L (17-59); African American GFR (CKD) >90 (>60 ml/min/1.73 sqM); Alkaline Phosphatase 227 U/L (38-126); Anion Gap 5 mmol/L; Blood Urea Nitrogen 38 mg/dL (9-20); Calcium 9.3 mg/dL (8.4-10.2); Carbon Dioxide 31 mmol/L (22-30); Chloride 100 mmol/L (98-107); Glucose 146 mg/dL (74-99); Non-African American GFR(CKD) 87 (>60 ml/min/1.73 sqM); Potassium 4.7 mmol/L (3.5-5.1); Sodium 136 mmol/L (137-145); Total Bilirubin 0.7 mg/dL (0.2-1.3); Total Protein 7.3 g/dL (6.3-8.2)
--- NOTE | 2024-07-12 13:35 | XR ---
EXAMINATION TYPE: XR chest 2V DATE OF EXAM: 07/12/2024 1:23 PM COMPARISON: Chest radiographs from 04/04/2024 CLINICAL INDICATION: Male, 79 years old with history of hemoptysis; TECHNIQUE: XR chest 2V Frontal and lateral views of the chest. FINDINGS: Lungs/Pleura: Elevated right diaphragm. There is no evidence of pleural effusion, focal consolidation , or pneumothorax. Pulmonary vascularity: Unremarkable. Heart/mediastinum: Cardiomediastinal silhouette is unremarkable. Musculoskeletal: No acute osseous pathology. IMPRESSION: No acute cardiopulmonary disease/process. [facility], , 07/12/2024 1:33 PM
[2024-07-12 14:28] VITALS: BP 130/77; PULSE 80; RESP 16; TEMP 98.8
== END 2024-07-12 14:27 | disposition home or self-care (01) ==
LOC: EC 10:30
DX: R04.2 Hemoptysis (principal); Z88.1 Allergy status to other antibiotic agents; Z88.0 Allergy status to penicillin; Z88.2 Allergy status to sulfonamides; Z88.8 Allergy status to other drugs, medicaments and biological substances; Z87.891 Personal history of nicotine dependence; Z87.09 Personal history of other diseases of the respiratory system
CPT/HCPCS: 36415; 71046; 80053; 85025; 85610; 85730; 93005; 99284

== ENCOUNTER 2024-07-13 09:39 | Inpatient (IN) | payer MEDICARE ==
--- NOTE | 2024-07-13 10:28 | ED ---
Recheck HPI - General Chief Complaint: Recheck/Abnormal Lab/Rx Stated Complaint: coughing up blood Time Seen by Provider: 07/13/24 09:48 Source: patient, family, RN notes reviewed Mode of arrival: ambulatory Limitations: no limitations - History of Present Illness Initial Comments: This is an 79-year-old male who presents to the emergency department for hemoptysis. Patient went to [facility] 2 days ago. They had intended on admitting him for a bronchoscopy, however he ended up leaving [place] due to the lack of beds available and needing to wait in the emergency department. He then presented here yesterday for his symptoms and was discharged home on antibiotics for suspected pneumonia and followed up with Dr. Magdaleno. At that time the bleeding had stopped, however he was told that if it returned he should present to the emergency department and plan on proceeding with a bronchoscopy at that point. Patient states that around 3 AM the bleeding returned and has not stopped since. He is unable to sleep due to all of the secretions and di fficulty clearing them. Denies any chest pain or shortness of breath. Not taking any blood thinners. - Related Data Home Medications Medication Instructions Recorded Confirmed Fluticasone/Vilanterol [Breo 1 puff INHALATION RT-DAILY 10/24/18 07/13/24 Ellipta 200-25 Mcg Inhaler] Metoprolol Tartrate [Lopressor] 12.5 mg PO DAILY 12/26/18 07/13/24 Gabapentin 600 mg PO HS 04/16/22 07/13/24 Ramelteon 8 mg PO HS PRN 04/16/22 07/13/24 guaiFENesin [Mucinex] 600 mg PO BID PRN 04/19/22 07/13/24 Albuterol Sulfate [Albuterol 2 puff PO RT-Q4H PRN 04/04/24 07/13/24 Sulfate Hfa] Ipratropium/Albuter 20-100Mcg 1 puff INHALATION RT-QID PRN 07/13/24 07/13/24 [Combivent Respimat 20-100Mcg Inhaler] Loratadine [Claritin] 10 mg PO DAILY PRN 07/13/24 07/13/24 Previous Rx's Medication Instructions Recorded Pantoprazole [Protonix] 40 mg PO BID #60 tab 09/28/22 Levofloxacin [Levaquin] 750 mg PO DAILY 6 Days #6 tab 07/17/24 predniSONE [Deltasone] 40 mg PO DAILY 5 Days #10 tab 07/17/24 Allergies Allergy/AdvReac Type Severity Reaction Status Date / Time azithromycin Allergy Swelling Verified 07/13/24 11:35 Penicillins Allergy Itching/David Verified 07/13/24 11:35 h piperacillin [From Zosyn] Allergy Itching Verified 07/13/24 11:35 Sulfa (Sulfonamide Allergy Rash/Hives Verified 07/13/24 11:35 Antibiotics) tazobactam [From Zosyn] Allergy Itching Verified 07/13/24 11:35 Review of Systems ROS Statement: Those systems with pertinent positive or pertinent negative responses have been documented in the HPI. ROS Other: All systems not noted in ROS Statement are negative. 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 sensitive rt elbow. History of Any Multi-Drug Resistant Organisms: None Reported Past Surgical History: Appendectomy, Hernia Repair, Orthopedic Surgery, Tonsillectomy Additional Past Surgical History / Comment(s): Field implant in throat ( vocal cords), peg tube, EGDs, colonoscopy, R inguinal hernia, L foot bunionectomy, hemorrhoidectomy, L ring trigger finger release, nasal reconstruction, cataracts/lens implants. no surgery on hip fx PEG TUBE left leg shorter than right after fracture healed Past Anesthesia/Blood Transfusion Reactions: No Reported Reaction Additional Past Anesthesia/Blood Transfusion Reaction / Comment(s): somewhat PARALYZED VOCAL CHORDS. Pt has received blood in past without reaction. sometimes slow to wake up. Past Psychological History: No Psychological Hx Reported Smoking Status: Former smoker Past Alcohol Use History: None Reported Past Drug Use History: None Reported - Past Family History Sister(s) Additional Family Medical History / Comment(s): passed colon CA Brother(s) Additional Family Medical History / Comment(s): sarcidosis Mother Family Medical History: COPD Additional Family Medical History / Comment(s): emphysema Son(s) Family Medical History: Hypertension Additional Family Medical History / Comment(s): lymphoma, sarcoidosis Father Family Medical History: No Reported History Additional Family Medical History / Comment(s): Father was healthy General Exam Limitations: no limitations General appearance: alert, in no apparent distress Head exam: Present: atraumatic, normocephalic, normal inspection Respiratory exam: Present: normal lung sounds bilaterally. Absent: respiratory distress, wheezes, rales, rhonchi, stridor Cardiovascular Exam: Present: regular rate, normal rhythm, normal heart sounds. Absent: systolic murmur, diastolic murmur, rubs, gallop, clicks Neurological exam: Present: alert, oriented X3, CN II-XII intact Psychiatric exam: Present: normal affect, normal mood Skin exam: Present: warm, dry, intact, normal color. Absent: rash Course Vital Signs 07/13/24 07/13/24 07/13/24 09:40 09:51 11:36 Temperature 98.3 F Pulse Rate 68 61 53 L Pulse Rate [ Pulse Oximetery ] Respiratory 18 18 18 Rate Blood Pressure 123/72 119/76 129/98 Blood Pressure [Left Arm] O2 Sat by Pulse 96 94 L 94 L Oximetry 07/13/24 07/13/24 07/13/24 14:00 18:05 20:41 Temperature 97.8 F Pulse Rate 59 L 58 L 68 Pulse Rate [ Pulse Oximetery ] Respiratory 19 18 18 Rate Blood Pressure 132/71 135/86 137/92 Blood Pressure [Left Arm] O2 Sat by Pulse 93 L 96 94 L Oximetry 07/13/24 07/13/24 23:39 23:45 Temperature Pulse Rate 61 Pulse Rate [ 67 Pulse Oximetery ] Respiratory 18 20 Rate Blood Pressure 144/85 Blood Pressure 126/74 [Left Arm] O2 Sat by Pulse 94 L 95 Oximetry Medical Decision Making - Medical Decision Making This is an 79 year old male who presents to the emergency department for hem optysis. Was pt. sent in by a medical professional or institution? @ -No Did you speak to anyone other than the patient for history? @ -No Did you review nursing and triage notes? @ -Yes, and I agree, it is accurate with regards to the patient's symptoms. Were old charts reviewed? @ -CTA of the chest from 2 days ago at [facility] revealing no evidence of a PE. Differential Diagnosis? @ -PE, infection, injury, tumor, this is not meant to be an all-inclusive list. EKG interpreted by me (3pts min.)? @ -EKG interpreted by me demonstrating the following: Ectopic atrial bradycardia. Ventricular rate 53 bpm, KS interval 121 ms, QRS duration 87 ms, QTc 364 ms. X-rays interpreted by me (1pt min.)? @ -Chest x-ray obtained, my interpretation identifies no localized consolidations or infiltrates. CT interpreted by me (1pt min.)? @ -Not obtained U/S interpreted by me (1pt. min.)? @ -Not obtained What testing was considered but not performed? (CT, X-rays, U/S, labs)? Why? @ -None What meds were considered but not given? Why? @ -None Did you discuss the management of the patient with other professionals? @ -Yes, Dr. Art, who accepts the patient for admission Did you reconcile home meds? @ -Yes Was smoking cessation discussed for >3mins.? @ -No Was critical care preformed (if so, how long)? @ -No Were there social determinants of health that impacted care today? How? (Homele ssness, low income, unemployed, alcoholism, drug addiction, transportation, low edu. Level, literacy, decrease access to med. care, longterm, rehab)? @ -No Was there de-escalation of care discussed even if they declined? (Discuss DNR or withdrawal of care, Hospice)? @ -No What co-morbidities impacted this encounter? (DM, HTN, Smoking, COPD, CAD, Canc er, CVA, Hep., AIDS, mental health diagnosis, sleep apnea, morbid obesity)? @ -A-fib, cancer, HTN Was patient admitted / discharged? @ -Admitted. Lab work unremarkable. COVID, influenza, and RSV testing negative. Chest x-ray reveals no acute process. CTA of the chest obtained at [facility] 2 days ago was sent over and scanned into our system for review. No evidence of a pulmonary embolus was identified. There were groundglass opacities concerning for infectious versus inflammatory process. Patient admitted to medicine for hemoptysis and difficulty clearing secretions. Per patient this was advised by pulmonology for a bronchoscopy. Case discussed with ED attending Dr. Galindo. Undiagnosed new problem with uncertain prognosis? @ -None Drug Therapy requiring intensive monitoring for toxicity (Heparin, Nitro, Insulin, Cardizem)? @ -None Were any procedures done? @ -None Diagnosis/symptom? @ -Hemoptysis, difficulty clearing secretions Acute, or Chronic, or Acute on Chronic? @ -Acute Uncomplicated (without systemic symptoms) or Complicated (systemic symptoms)? @ -Complicated Side effects of treatment? @ -None Exacerbation, Progression, or Severe Exacerbation] @ -Not applicable Poses a threat to life or bodily function? @ -Yes, can lead to further respiratory compromise - Lab Data Result diagrams: 07/15/24 07:59 07/15/24 07:59 Lab Results 07/13/24 07/13/24 07/13/24 Range/Units 10:33 10:33 10:33 WBC 7.6 (3.8-10.6) k/uL RBC 4.36 (4.30-5.90) m/uL Hgb 15.0 (13.0-17.5) gm/dL Hct 45.4 (39.0-53.0) % MCV 104.1 H (80.0-100.0) fL MCH 34.4 (25.0-35.0) pg MCHC 33.1 (31.0-37.0) g/dL RDW 13.3 (11.5-15.5) % Plt Count 143 L (150-450) k/uL MPV 9.4 Neutrophils % 84 % Lymphocytes % 8 % Monocytes % 6 % Eosinophils % 1 % Basophils % 0 % Neutrophils # 6.4 (1.3-7.7) k/uL Lymphocytes # 0.6 L (1.0-4.8) k/uL Monocytes # 0.5 (0-1.0) k/uL Eosinophils # 0.0 (0-0.7) k/uL Basophils # 0.0 (0-0.2) k/uL Macrocytosis Slight PT 10.6 (10.0-12.5) sec INR 1.0 (<1.2) APTT 23.3 (22.0-30.0) sec Sodium 137 (137-145) mmol/L Potassium 4.6 (3.5-5.1) mmol/L Chloride 101 (98-107) mmol/L Carbon Dioxide 33 H (22-30) mmol/L Anion Gap 3 mmol/L BUN 43 H (9-20) mg/dL Creatinine 0.75 (0.66-1.25) mg/dL Est GFR (CKD-EPI)AfAm >90 (>60 ml/min/1.73 sqM) Est GFR (CKD-EPI)NonAf 86 (>60 ml/min/1.73 sqM) Glucose 93 (74-99) mg/dL Calcium 9.2 (8.4-10.2) mg/dL Total Bilirubin 0.9 (0.2-1.3) mg/dL AST 47 (17-59) U/L ALT 56 H (4-49) U/L Alkaline Phosphatase 199 H (38-126) U/L Troponin I (0.000-0.034) ng/mL C-Reactive Protein 0.6 (<1.0) mg/dL Total Protein 7.5 (6.3-8.2) g/dL Albumin 4.0 (3.5-5.0) g/dL Procalcitonin (0.02-0.50) ng/mL Influenza Type A (PCR) (Not Detectd) Influenza Type B (PCR) (Not Detectd) RSV (PCR) (Not Detectd) SARS-CoV-2 (PCR) (Not Detectd) 07/13/24 07/13/24 07/13/24 Range/Units 10:33 10:33 10:33 WBC (3.8-10.6) k/uL RBC (4.30-5.90) m/uL Hgb (13.0-17.5) gm/dL Hct (39.0-53.0) % MCV (80.0-100.0) fL MCH (25.0-35.0) pg MCHC (31.0-37.0) g/dL RDW (11.5-15.5) % Plt Count (150-450) k/uL MPV Neutrophils % % Lymphocytes % % Monocytes % % Eosinophils % % Basophils % % Neutrophils # (1.3-7.7) k/uL Lymphocytes # (1.0-4.8) k/uL Monocytes # (0-1.0) k/uL Eosinophils # (0-0.7) k/uL Basophils # (0-0.2) k/uL Macrocytosis PT (10.0-12.5) sec INR (<1.2) APTT (22.0-30.0) sec Sodium (137-145) mmol/L Potassium (3.5-5.1) mmol/L Chloride (98-107) mmol/L Carbon Dioxide (22-30) mmol/L Anion Gap mmol/L BUN (9-20) mg/dL Creatinine (0.66-1.25) mg/dL Est GFR (CKD-EPI)AfAm (>60 ml/min/1.73 sqM) Est GFR (CKD-EPI)NonAf (>60 ml/min/1.73 sqM) Glucose (74-99) mg/dL Calcium (8.4-10.2) mg/dL Total Bilirubin (0.2-1.3) mg/dL AST (17-59) U/L ALT (4-49) U/L Alkaline Phosphatase (38-126) U/L Troponin I <0.012 (0.000-0.034) ng/mL C-Reactive Protein (<1.0) mg/dL Total Protein (6.3-8.2) g/dL Albumin (3.5-5.0) g/dL Procalcitonin 0.07 (0.02-0.50) ng/mL Influenza Type A (PCR) Not Detected (Not Detectd) Influenza Type B (PCR) Not Detected (Not Detectd) RSV (PCR) Not Detected (Not Detectd) SARS-CoV-2 (PCR) Not Detected (Not Detectd) - Radiology Data Radiology results: report reviewed, image reviewed Disposition Clinical Impression: Hemoptysis, Difficulty clearing secretions Disposition: ADMITTED IP TO THIS HOSP
[2024-07-13 10:56] LABS: Basophils % (A) 0 %; Eosinophils % (A) 1 %; HCT 45.4 % (39.0-53.0); Lymphocytes # (A) 0.6 k/uL (1.0-4.8); Lymphocytes % (A) 8 %; MCH 34.4 pg (25.0-35.0); MCHC 33.1 g/dL (31.0-37.0); MCV 104.1 fL (80.0-100.0); Macrocytosis Slight; Mean Platelet Volume 9.4; Monocytes # (A) 0.5 k/uL (0-1.0); Monocytes % (A) 6 %; Neutrophils # (A) 6.4 k/uL (1.3-7.7); Neutrophils % (A) 84 %; Platelet Count 143 k/uL (150-450); RBC 4.36 m/uL (4.30-5.90); RDW 13.3 % (11.5-15.5); WBC 7.6 k/uL (3.8-10.6)
--- NOTE | 2024-07-13 11:13 | XR ---
EXAMINATION TYPE: XR chest 2V DATE OF EXAM: 07/13/2024 11:05 AM COMPARISON: Chest radiographs from 07/12/2024 CLINICAL INDICATION: Male, 79 years old with history of Hemoptysis; [facility] TECHNIQUE: XR chest 2V Frontal and lateral views of the chest. FINDINGS: Lungs/Pleura: Elevated right diaphragm. There is no evidence of pleural effusion, focal consolidation , or pneumothorax. Pulmonary vascularity: Unremarkable. Heart/mediastinum: Cardiomediastinal silhouette is unremarkable. Musculoskeletal: Degenerative changes of the shoulder joints. Other findings: None IMPRESSION: 1. Elevated right diaphragm with associated atelectasis. 2. No acute cardiopulmonary disease/process. [facility], , 07/13/2024 11:10 AM
[2024-07-13 11:15] LABS: ALT 56 U/L (4-49); AST 47 U/L (17-59); African American GFR (CKD) >90 (>60 ml/min/1.73 sqM); Alkaline Phosphatase 199 U/L (38-126); Anion Gap 3 mmol/L; Blood Urea Nitrogen 43 mg/dL (9-20); C Reactive Protein 0.6 mg/dL (<1.0); Calcium 9.2 mg/dL (8.4-10.2); Carbon Dioxide 33 mmol/L (22-30); Chloride 101 mmol/L (98-107); Glucose 93 mg/dL (74-99); Non-African American GFR(CKD) 86 (>60 ml/min/1.73 sqM); Partial Thromboplastin Time 23.3 sec (22.0-30.0); Potassium 4.6 mmol/L (3.5-5.1); Prothrombin Time 10.6 sec (10.0-12.5); Sodium 137 mmol/L (137-145); Total Bilirubin 0.9 mg/dL (0.2-1.3); Total Protein 7.5 g/dL (6.3-8.2)
[2024-07-13] MEDS ORDERED: ACETAMINOPHEN TAB 325 MG TAB PO PRN (12:26)
[2024-07-13] MEDS ORDERED: HYDROcodone/APAP 5-325MG 1 EACH TAB PO PRN (12:26)
[2024-07-13] MEDS ORDERED: ONDANSETRON 4 MG/2 ML VIAL IVP PRN (12:26)
[2024-07-13] MEDS ORDERED: NALOXONE 0.4 MG/ML 1 ML VIAL IV PRN (12:26)
[2024-07-13] MEDS ORDERED: MORPHINE SULFATE 4 MG/ML SYRINGE IV PRN (12:26)
[2024-07-13] MEDS ORDERED: ALBUTEROL NEBULIZED 2.5 MG/3 ML INHALATION PRN (12:27)
[2024-07-13] MEDS ORDERED: IPRATROPIUM-ALBUTEROL 3 ML NEB INHALATION PRN (12:27)
[2024-07-13] MEDS ORDERED: PANTOPRAZOLE 40 MG TABLET PO SCH (17:30)
[2024-07-13] MEDS: GABAPENTIN 300 MG CAP PO SCH (20:41)
--- NOTE | 2024-07-13 21:45 | P.CNPUL ---
History of Present Illness Consult date: 07/13/24 Chief complaint: Hemoptysis History of present illness: This is a 79-year-old male patient came into the emergency department because of episodes of hemoptysis this been going on for the past 2 days. Initially went to [facility] where he was given a CAT scan of the chest and no acute abnormalities was identified. Reports are not available. The patient was advised to undergo bronchoscopy. He declined and he left AMA. He came into our emergency department following that. Chest x-ray was done that showed no significant acute abnormalities and the patient is known to have chronic right hemidiaphragmatic elevation. He was given Zithromax and was discharged home to come back to the emergency because of ongoing episodes of cough and bloody mucoid sputum. No fever. No worsening shortness of breath. No trauma to the chest. No anticoagulants. The patient has had several episodes of hemoptysis where he is coughed up bloody secretions. His white cell count is at 7.6 with a hemoglobin 15.0. Platelet count is at 143. Normal coagulation profile. Normal electrolytes. Troponins are negative. Procalcitonin level is 0.07. No epistaxis. No reported aspiration of foreign bodies. Chest x-ray was repeated in the emergency and the findings are essentially stable. Some atelectatic changes in lung base especially on the right. The right hemidiaphragm is chronically elevated and there is some adjacent atelectasis. The patient is currently on room air oxygen with a pulse ox of 94%. Noted the patient is known to me. He is known to have COPD maintained on Breo Ellipta and Combivent rescue inhaler on as-needed basis. 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 He has chronic difficulty swallowing and the patient has a PEG tube for enteral feeding for nutritional support. 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 He has had previous episodes of pneumonias of an aspiration type and he suffers from multiple myeloma, followed up at [facility] and has previous history of CVA and he ambulates with the help of a cane. He also has a history of an abdominal wall cellulitis for which she was hospitalized and he was treated for gram-negative cellulitis with Enterobacter and Klebsiella and t his was at the site of the PEG tube that was essentially replaced without any subsequent recurrence. Review of Systems Constitutional: Reports fatigue, Reports weakness Ears: deny: decreased hearing, ear discharge, earache, tinnitus Ears, nose, mouth and throat: Reports as per HPI Breasts: absent: as per HPI, gynecomastia Cardiovascular: Reports as per HPI Respiratory: Reports cough, Reports hemoptysis Gastrointestinal: Reports as per HPI (Dysphagia and the patient receives enteral feeding via PEG tube) Genitourinary: Reports as per HPI Musculoskeletal: Reports atrophy, Reports gait dysfunction, Reports muscle weakness Musculoskeletal: absent: ankle pain, ankle stiffness, ankle swelling, as per HPI, elbow pain, elbow stiffness, elbow swelling, foot pain, foot stiffness, foot swelling, hand pain, hand stiffness, hand swelling, hip pain, hip stiffness, hip swelling, knee pain, knee stiffness, knee swelling, shoulder pain, shoulder stiffness, shoulder swelling, wrist pain, wrist stiffness, wrist swelling Integumentary: Reports as per HPI Neurological: Reports gait dysfunction, Reports motor disturbance, Reports weakness Psychiatric: Reports as per HPI Endocrine: Reports as per HPI Hematologic/Lymphatic: Reports as per HPI Allergic/Immunologic: Reports as per HPI Past Medical History Past Medical History: Atrial Fibrillation, Blood Disorder, Cancer, COPD, CVA/TIA, GERD/Reflux, Hypertension, Pneumonia, Prostate Disorder, Rheumatoid Arthritis (RA), Vascular Disorder Additional Past Medical History / Comment(s): 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 sensitive rt elbow. History of Any Multi-Drug Resistant Organisms: None Reported Past Surgical History: Appendectomy, Hernia Repair, Orthopedic Surgery, Tonsillectomy Additional Past Surgical History / Comment(s): Field implant in throat ( vocal cords), peg tube, EGDs, colonoscopy, R inguinal hernia, L foot bunionectomy, hemorrhoidectomy, L ring trigger finger release, nasal reconstruction, cataracts/lens implants. no surgery on hip fx PEG TUBE left leg shorter than right after fracture healed Past Anesthesia/Blood Transfusion Reactions: No Reported Reaction Additional Past Anesthesia/Blood Transfusion Reaction / Comment(s): somewhat PARALYZED VOCAL CHORDS. Pt has received blood in past without reaction. sometimes slow to wake up. Past Psychological History: No Psychological Hx Reported Smoking Status: Former smoker Past Alcohol Use History: None Reported Past Drug Use History: None Reported - Past Family History Sister(s) Additional Family Medical History / Comment(s): passed colon CA Brother(s) Additional Family Medical History / Comment(s): sarcidosis Mother Family Medical History: COPD Additional Family Medical History / Comment(s): emphysema Son(s) Family Medical History: Hypertension Additional Family Medical History / Comment(s): lymphoma, sarcoidosis Father Family Medical History: No Reported History Additional Family Medical History / Comment(s): Father was healthy Medications and Allergies Home Medications Medication Instructions Recorded Confirmed Type Fluticasone/Vilanterol [Breo 1 puff INHALATION RT-DAILY 10/24/18 07/13/24 History Ellipta 200-25 Mcg Inhaler] Metoprolol Tartrate [Lopressor] 12.5 mg PO DAILY 12/26/18 07/13/24 History Gabapentin 600 mg PO HS 04/16/22 07/13/24 History Ramelteon 8 mg PO HS PRN 04/16/22 07/13/24 History guaiFENesin [Mucinex] 600 mg PO BID PRN 04/19/22 07/13/24 History Pantoprazole [Protonix] 40 mg PO BID #60 tab 04/23/22 07/13/24 Rx Albuterol Sulfate [Albuterol 2 puff PO RT-Q4H PRN 04/04/24 07/13/24 History Sulfate Hfa] Azithromycin [Zithromax Z Pack] See Taper PO DIRECTED 07/13/24 07/13/24 History Ipratropium/Albuter 20-100Mcg 1 puff INHALATION RT-QID PRN 07/13/24 07/13/24 History [Combivent Respimat 20-100Mcg Inhaler] Loratadine [Claritin] 10 mg PO DAILY PRN 07/13/24 07/13/24 History Tamsulosin HCl [Flomax] 0.4 mg PO [id number] 07/13/24 07/13/24 History Allergies Allergy/AdvReac Type Severity Reaction Status Date / Time azithromycin Allergy Swelling Verified 07/13/24 11:35 Penicillins Allergy Itching/David Verified 07/13/24 11:35 h piperacillin [From Zosyn] Allergy Itching Verified 07/13/24 11:35 Sulfa (Sulfonamide Allergy Rash/Hives Verified 07/13/24 11:35 Antibiotics) tazobactam [From Zosyn] Allergy Itching Verified 07/13/24 11:35 Physical Exam Vitals: Vital Signs Temp Pulse Resp BP Pulse Ox 07/13/24 20:41 68 18 137/92 94 L 07/13/24 18:05 97.8 F 58 L 18 135/86 96 07/13/24 14:00 59 L 19 132/71 93 L 07/13/24 11:36 53 L 18 129/98 94 L 07/13/24 09:51 61 18 119/76 94 L 07/13/24 09:40 98.3 F 68 18 123/72 96 Intake and Output 07/13/24 07/13/24 07/13/24 06:59 14:59 22:59 Other: Weight 73.936 kg EYES: Pupils equal. Conjunctiva normal. Head exam was generally normal. There was no scleral icterus or corneal arcus. Mucous membranes were moist. HEENT: External appearance of nose and ears normal, oral cavity grossly normal. There is some erythema in the posterior oropharynx. No signs of any acute bleed NECK: JVD not raised; masses not palpable. HEART: First and second heart sounds are normal; no edema. LUNGS: Respiratory rate normal; decreased breath sounds, the patient has a weak cough ABDOMEN: Soft, nontender, liver spleen not palpable, no masses palpable. PEG tube site: There is dry clean and intact PSYCH: Alert and oriented x3; mood and affect normal. MUSCULOSKELETAL:No Clubbing/cyanosis;muscles-grossly intact. OA. NEUROLOGICAL: [Cranial nerves grossly intact; some facial asymmetry, intermittent tremor. Dysarthria. Results - Laboratory Findings CBC and BMP: 07/13/24 10:33 07/13/24 10:33 PT/INR, D-dimer PT 10.6 sec (10.0-12.5) 07/13/24 10:33 INR 1.0 (<1.2) 07/13/24 10:33 Abnormal lab findings: Abnormal Labs 07/13/24 07/13/24 10:33 10:33 MCV 104.1 H Plt Count 143 L Lymphocytes # 0.6 L Carbon Dioxide 33 H BUN 43 H ALT 56 H Alkaline Phosphatase 199 H Assessment and Plan Plan: Hemoptysis, as the patient is coughing up mucoid bloody secretions. N no worsening shortness of breath. No fever. Procalcitonin level is not elevated and the patient chest x-ray shows chronic right hemidiaphragmatic elevation. No aspiration. CAT scan of the chest that was done at [facility] was reported to be negative for any acute abnormalities. The patient was receiving Zithromax on outpatient basis. Exact source of this bleed is unknown. No anticoagulants. 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 Chronic dysphagia and the patient has enteral feeding for nutritional support via PEG tube Multiple myeloma History of CVA, ambulate with the help of a cane History of fracture of the iliac crest History of recurrent pneumonias History of atrial flutter Previous history of history of pseudomonal tracheal bronchitis/pneumonia Plan We reviewed the CAT scan of the chest was done at [facility] We will set up this patient for a flexible bronchoscopy for upper and lower airway inspection in a.m. Keep n.p.o. after midnight Resume home medications Clinically stable Will follow
[2024-07-14] MEDS: PANTOPRAZOLE 40 MG/10 ML VIAL IVP ONE (01:48)
[2024-07-14] MEDS: TAMSULOSIN 0.4 MG CAP.ER.24H PO SCH (01:49)
--- NOTE | 2024-07-14 03:19 | HP ---
HISTORY AND PHYSICAL CHIEF COMPLAINT: Hemoptysis. 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 The patient presented to [facility] also, but did not say previously. The CAT scan done in [place] was apparently normal recently. There is no history of any fever, rigors, or chills at this time. The patient had difficulty in clearing the secretions. According to the family, the hemoptysis is frothy. PAST MEDICAL HISTORY: Atrial fibrillation, COPD, CVA, TIA. Rest of the history and rest of the chart is also reviewed. HOME MEDICATIONS: Reviewed, which include Claritin. Dose and rest of medications reviewed. ALLERGIES: Multiple allergies including Zithromax and penicillin. FAMILY HISTORY: History of COPD and cancer. SOCIAL HISTORY: History of smoking. REVIEW OF SYSTEMS: A 14-point review of systems is negative except as mentioned earlier. PHYSICAL EXAMINATION: VITAL SIGNS: Pulse is 59, blood pressure 132/79, respirations 18. HEENT: Conjunctivae normal. NECK: No JVD. CARDIOVASCULAR: S1, S2. RESPIRATIONS: A few scattered rhonchi and crackles. ABDOMEN: Soft. PEG tube in situ. LEGS: No edema. NERVOUS SYSTEM: Diffusely weak and wasted and emaciated. SKIN: No ulcers. LABORATORY DATA: Reviewed. ASSESSMENT: 1. Recurrent hemoptysis for evaluation, rule out pulmonary pathology. 2. History of facial onset sensory motor neuropathy, FOSMN. 3. History of rheumatoid arthritis. 4. History of cerebrovascular accident, transient ischemic attack. 5. Chronic obstructive pulmonary disease. 6. History of atrial fibrillation. 7. Multiple complex medical issues. RECOMMENDATIONS AND DISCUSSION: This is an 79-year-old gentleman, who presented with multiple complex medical issues, we will monitor the patient closely. Continue the current medications and continue symptomatic treatment. CT scan has been reported as negative; however, we will try to obtain the physical copy. We will consult Pulmonology for possible bronchoscopy. 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 We will continue to monitor. Continue rest of medications. Prognosis extremely guarded. Further recommendations to follow. MMODL / IJN: [id number] /
[2024-07-14] MEDS: SYMBICORT 160-4.5 MCG INHALER INHALATION SCH (08:36)
[2024-07-14] MEDS: PANTOPRAZOLE 40 MG/10 ML VIAL IV SCH (09:03)
[2024-07-14] MEDS: METOPROLOL TARTRATE 12.5 MG TAB PO SCH (09:03)
[2024-07-14] MEDS ORDERED: LIDOCAINE 1% INJ 10MG/ML (20 ML MDV) ONE (11:26)
[2024-07-14] MEDS ORDERED: PROPOFOL 10 MG/ML 20 ML VIAL IV ONE (11:26)
[2024-07-14] MEDS: LACTATED RINGERS 1,000 ML IV ONE (11:32)
[2024-07-14 14:07] VITALS: BMI 24.0
--- NOTE | 2024-07-14 18:28 | P.PN ---
Subjective Progress Note Date: 07/14/24 This is a 79-year-old male patient came into the emergency department because of episodes of hemoptysis this been going on for the past 2 days. Initially went to [facility] where he was given a CAT scan of the chest and no acute abnormalities was identified. Reports are not available. The patient was advised to undergo bronchoscopy. He declined and he left AMA. He came into our emergency department following that. Chest x-ray was done that showed no significant acute abnormalities and the patient is known to have chronic right hemidiaphragmatic elevation. He was given Zithromax and was discharged home to come back to the emergency because of ongoing episodes of cough and bloody mucoid sputum. No fever. No worsening shortness of breath. No trauma to the chest. No anticoagulants. The patient has had several episodes of hemoptysis where he is coughed up bloody secretions. His white cell count is at 7.6 with a hemoglobin 15.0. Platelet count is at 143. Normal coagulation profile. Normal electrolytes. Troponins are negative. Procalcitonin level is 0.07. No epistaxis. No reported aspiration of foreign bodies. Chest x-ray was repeated in the emergency and the findings are essentially stable. Some atelectatic changes in lung base especially on the right. The right hemidiaphragm is chronically elevated and there is some adjacent atelectasis. The patient is currently on room air oxygen with a pulse ox of 94%. Noted the patient is known to me. He is known to have COPD maintained on Breo Ellipta and Combivent rescue inhaler on as-needed basis. 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 He has chronic difficulty swallowing and the patient has a PEG tube for enteral feeding for nutritional support. 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 He has had previous episodes of pneumonias of an aspiration type and he suffers from multiple myeloma, followed up at [facility] and has previous history of CVA and he ambulates with the help of a cane. He also has a history of an abdominal wall cellulitis for which she was hospitalized and he was treated for gram-negative cellulitis with Enterobacter and Klebsiella and this was at the site of the PEG tube that was essentially replaced without any subsequent recurrence. On 07/14/2024, the patient is still having episodes of hemoptysis although this is subsided compared to yesterday. Based on that, the patient has been kept n.p.o. and the patient underwent a bronchoscopy today. The upper airway was within normal limits. The trachea was normal. Loose bloody respiratory secreti ons were encountered throughout the patient's airways and there was diffuse mucosal inflammatory changes specially in the left lower lobe bronchus and the various segments. Noted the various segments of the right lower lobe were also atelectatic. I was able to review the CT scan of the chest that was done and it [facility] and there is no evidence of any pulmonary embolism. Some limited groundglass opacity seen in the right midlung and the inferior right upper lobe which could be potentially infectious. I performed a bronchoscopy and a bronchioloalveolar lavage. The patient is currently on no antibiotics. Going to start him on empiric antibiotic coverage with Levaquin. Will monitor his hemoptysis. No anticoagulants for now. Viral screen has been negative. Procalcitonin level is at 0.07. Will be also given 2 dose of IV Solu-Medrol. Objective - Vital Signs Vital signs: Vital Signs Temp 98.1 F 07/14/24 09:02 Pulse 62 07/14/24 09:02 Resp 18 07/14/24 09:02 BP 145/91 07/14/24 09:02 Pulse Ox 94 L 07/14/24 09:02 FiO2 Intake & Output 07/13/24 07/14/24 07/14/24 18:59 06:59 18:59 Intake Total 10 10 Balance 10 10 Weight 73.936 kg 74 kg Intake: IV 10 10 Invasive Line 1 10 10 Other: Voiding Method Toilet Toilet # Voids 1 - Exam EYES: Pupils equal. Conjunctiva normal. Head exam was generally normal. There was no scleral icterus or corneal arcus. Mucous membranes were moist. HEENT: External appearance of nose and ears normal, oral cavity grossly normal. There is some erythema in the posterior oropharynx. No signs of any acute bleed NECK: JVD not raised; masses not palpable. HEART: First and second heart sounds are normal; no edema. LUNGS: Respiratory rate normal; decreased breath sounds, the patient has a weak cough ABDOMEN: Soft, nontender, liver spleen not palpable, no masses palpable. PEG tube site: There is dry clean and intact PSYCH: Alert and oriented x3; mood and affect normal. MUSCULOSKELETAL:No Clubbing/cyanosis;muscles-grossly intact. OA. NEUROLOGICAL: [Cranial nerves grossly intact; some facial asymmetry, intermittent tremor. Dysarthria. - Labs CBC & Chem 7: 07/13/24 10:33 12 10:33 Labs: Abnormal Lab Results - Last 24 Hours (Table) 07/13/24 07/13/24 Range/Units 10:33 10:33 MCV 104.1 H (80.0-100.0) fL Plt Count 143 L (150-450) k/uL Lymphocytes # 0.6 L (1.0-4.8) k/uL Carbon Dioxide 33 H (22-30) mmol/L BUN 43 H (9-20) mg/dL ALT 56 H (4-49) U/L Alkaline Phosphatase 199 H (38-126) U/L Microbiology - Last 24 Hours (Table) 07/13/24 10:33 Gram Stain - Final Sputum Sputum Culture - Final Assessment and Plan Plan: Hemoptysis, as the patient is coughing up mucoid bloody secretions. N no worsening shortness of breath. No fever. Procalcitonin level is not elevated and the patient chest x-ray shows chronic right hemidiaphragmatic elevation. No aspiration. CAT scan of the chest that was done at [facility] was reported to be negative for any acute abnormalities. The patient was receiving Zithromax on outpatient basis. Exact source of this bleed is unknown. No anticoagulants. 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 Chronic dysphagia and the patient has enteral feeding for nutritional support via PEG tube Multiple myeloma History of CVA, ambulate with the help of a cane History of fracture of the iliac crest History of recurrent pneumonias History of atrial flutter Previous history of history of pseudomonal tracheal bronchitis/pneumonia Plan We reviewed the CAT scan of the chest was done at [facility] and there is some limited groundglass changes involving the right middle lobe and inferior/posterior right upper lobe. This could be potentially infectious in nature. Patient underwent bronchoscopy endobronchial lavage and diffuse mucosal inflammatory changes were seen in the right lower lobe bronchus and the various segments. Bronchoalveolar lavage was done pending cultures. Procalcitonin is negative. Rule out viral infection/viral tracheobronchitis. Rule out bacterial infection. Rule out aspiration pneumonitis. Patient will be treated with Levaquin 750 mg every 24 hours IV Solu-Medrol 60 mg IV push every 12 hours x 2 doses Resume enteral feeding for nutritional support Resume home medications Clinically stable Will follow Monitor hemoptysis
--- NOTE | 2024-07-14 18:33 | P.PCN ---
Date of Procedure: 07/14/24 Preoperative Diagnosis: Hemoptysis Postoperative Diagnosis: Bloody respiratory secretions Mucosal inflammatory changes involving the lower lobe bronchus and the various segments of the right lower lobe No endobronchial tumors No foreign bodies Normal upper airway examination Procedure(s) Performed: Flexible bronchoscopy, bronchoalveolar lavage of the right lower lobe Anesthesia: MAC Surgeon: Gina Magdaleno Estimated Blood Loss (ml): 0 Pathology: other Condition: stable Disposition: floor Operative Findings: Procedure was done in the endoscopy suite. The patient was placed on a simple facemask at 10 L of oxygen. Anesthetic agents was administered by anesthesia at the bedside. After achieving adequate sedation, the flexor bronchoscope was advanced through the right nostril and was advanced into the upper airways. Posterior pharynx, larynx, epiglottis, vallecula, arytenoids and the vocal cords were all within normal limits. Vocal cord function and mobility was also normal. A total of 2 cc of 1% lidocaine was applied to the vocal cords. Noted there was no abno rmalities to account for the hemoptysis and the upper airways. The bronchoscope was then introduced into the trachea and was more obvious that the hemoptysis that the patient was encountering was from the lower airways. There was some scattered bloody respiratory secretions occupying the tracheal wall that was easily suctioned out. No tracheal abnormalities. Bronchoscope was then was moved to the right side including the right mainstem bronchus and the various airways involving the right side was examined including the right upper lobe bronchus, bronchus intermedius, right middle lobe bronchus and the right lower lobe bronchus. Scattered bloody secretions were also present throughout the airway on the right side and are more abundant in the right lower lobe. I examined the right lower lobe bronchus and the various segments. The segments were atelectatic as the patient has chronic elevation of the right hemidiaphragm and her right hemidiaphragmatic paralysis. Nevertheless, there was significant mucosal inflammatory changes suspecting a infectious viral or bacterial tracheobronchitis/pneumonia and/or aspiration. No foreign bodies. No endobronchial tumors. Bloody secretions were also present on the left including the left mainstem bronchus and the various segments of the left lower lobe although the bloody secretions were less abundant and the mucosal inflammatory changes were not seen. At that point, the bronchoscope was moved to the right lower lobe and the bronchioloalveolar lavage of the right lower lobe was done. A total of 60 cc of saline was infused and 20 cc was aspirated without any major difficulties. The aspirate was obviously blood-tinged and bloody. Therapeutic airway suctioning was done. Bronchoscope was removed and the patient was transferred to recovery in stable condition Assessment Infectious versus chemical pneumonitis/tracheobronchitis with secondary hemoptysis Plan Start the patient on Levaquin. Give the patient IV Solu-Medrol. Monitor hemoptysis.
[2024-07-14] MEDS: TEMAZEPAM 15 MG CAP PO PRN (20:21)
[2024-07-14] MEDS: LORATADINE 10 MG TAB PO PRN (20:21)
[2024-07-14] MEDS: LEVOFLOXACIN 750MG-D5W PMX 750 MG in DEXTROSE/WATER 1 150ML.BAG IVPB SCH (20:22)
[2024-07-14] MEDS: guaiFENesin 600 MG TABLET.ER PO PRN (20:22)
[2024-07-14] MEDS: methylPREDNISolone SOD SUCCI 125 MG/2 ML VIAL IV SCH (20:22)
[2024-07-14 21:01] LABS: Appearance,BF Bloody (Clear); RBC, Body Fluid 47250 /UL (0-2000)
[2024-07-14] MEDS: IPRATROPIUM-ALBUTEROL 3 ML NEB INHALATION SCH (21:28)
[2024-07-15 09:20] LABS: Basophils % (A) 0 %; Eosinophils % (A) 0 %; HCT 44.2 % (39.0-53.0); HGB 14.2 gm/dL (13.0-17.5); Lymphocytes # (A) 0.8 k/uL (1.0-4.8); Lymphocytes % (A) 14 %; MCHC 32.2 g/dL (31.0-37.0); MCV 105.6 fL (80.0-100.0); Macrocytosis Slight; Mean Platelet Volume 9.5; Monocytes # (A) 0.2 k/uL (0-1.0); Monocytes % (A) 4 %; Neutrophils # (A) 4.4 k/uL (1.3-7.7); Neutrophils % (A) 81 %; Platelet Count 131 k/uL (150-450); RBC 4.18 m/uL (4.30-5.90); WBC 5.4 k/uL (3.8-10.6)
[2024-07-15 09:25] LABS: Nucleated Cells, Body Fluid 150 /UL
--- NOTE | 2024-07-15 09:25 | PN ---
PROGRESS NOTE DATE OF SERVICE: 07/14/2024 SUBJECTIVE: This is an 79-year-old gentleman, admitted with hemoptysis, is being closely monitored at this time. The patient had recurrent hemoptysis for the past several days. Dr. Magdaleno is planning a flexible bronchoscopy. The patient also had facial onset sensory and motor neuropathy, which is called FOSMN, and the patient had a tough time clearing the secretions according to him. The patient also had a PEG tube. No chest pain. No palpitation. PAST MEDICAL HISTORY: A 14-point review of systems is negative except as mentioned earlier. CURRENT MEDICATIONS: Reviewed. PHYSICAL EXAMINATION: VITAL SIGNS: Pulse 62, blood pressure 145/90, respirations 18. HEENT: Conjunctivae normal. NECK: No jugular venous distention. CARDIOVASCULAR: S1, S2. RESPIRATIONS: A few scattered rhonchi. ABDOMEN: Soft. PEG tube in situ. LEGS: No edema. NERVOUS SYSTEM: Nonfocal. LABORATORY DATA: Platelets 143. Rest of the labs are noted. ASSESSMENT: 1. Hemoptysis for evaluation, recurrent, rule out pulmonary pathology. 2. History of facial onset sensory and motor neuropathy, FOSMN. 3. History of rheumatoid arthritis. 4. History of cerebrovascular accident, transient ischemic attack. 5. Chronic obstructive pulmonary disease. 6. History of atrial fibrillation. 7. Multiple complex medical issues. RECOMMENDATIONS AND DISCUSSION: Recommend to continue current management and continue symptomatic treatment. Otherwise at this time, I would recommend empiric antibiotics. Repeat labs. Bronchoscopy by Dr. Magdaleno. Prognosis guarded. Further recommendations to follow. See orders for details. Bronchodilators. MMODL / IJN: [id number] /
[2024-07-15 09:38] LABS: ALT 42 U/L (4-49); AST 34 U/L (17-59); African American GFR (CKD) >90 (>60 ml/min/1.73 sqM); Albumin 3.6 g/dL (3.5-5.0); Alkaline Phosphatase 190 U/L (38-126); Anion Gap 4 mmol/L; Blood Urea Nitrogen 30 mg/dL (9-20); Calcium 9.4 mg/dL (8.4-10.2); Carbon Dioxide 31 mmol/L (22-30); Chloride 101 mmol/L (98-107); Glucose 119 mg/dL (74-99); Non-African American GFR(CKD) 88 (>60 ml/min/1.73 sqM); Potassium 4.8 mmol/L (3.5-5.1); Sodium 136 mmol/L (137-145); Total Bilirubin 0.7 mg/dL (0.2-1.3); Total Protein 6.8 g/dL (6.3-8.2)
[2024-07-15] MEDS: methylPREDNISolone SOD SUCCI 40 MG/ML 1 ML VIAL IV SCH (14:07)
--- NOTE | 2024-07-15 14:40 | P.PN ---
Subjective Progress Note Date: 07/15/24 This is a 79-year-old male patient came into the emergency department because of episodes of hemoptysis this been going on for the past 2 days. Initially went to [facility] where he was given a CAT scan of the chest and no acute abnormalities was identified. Reports are not available. The patient was advised to undergo bronchoscopy. He declined and he left AMA. He came into our emergency department following that. Chest x-ray was done that showed no significant acute abnormalities and the patient is known to have chronic right hemidiaphragmatic elevation. He was given Zithromax and was discharged home to come back to the emergency because of ongoing episodes of cough and bloody mucoid sputum. No fever. No worsening shortness of breath. No trauma to the chest. No anticoagulants. The patient has had several episodes of hemoptysis where he is coughed up bloody secretions. His white cell count is at 7.6 with a hemoglobin 15.0. Platelet count is at 143. Normal coagulation profile. Normal electrolytes. Troponins are negative. Procalcitonin level is 0.07. No epistaxis. No reported aspiration of foreign bodies. Chest x-ray was repeated in the emergency and the findings are essentially stable. Some atelectatic changes in lung base especially on the right. The right hemidiaphragm is chronically elevated and there is some adjacent atelectasis. The patient is currently on room air oxygen with a pulse ox of 94%. Noted the patient is known to me. He is known to have COPD maintained on Breo Ellipta and Combivent rescue inhaler on as-needed basis. 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 He has chronic difficulty swallowing and the patient has a PEG tube for enteral feeding for nutritional support. 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 He has had previous episodes of pneumonias of an aspiration type and he suffers from multiple myeloma, followed up at [facility] and has previous history of CVA and he ambulates with the help of a cane. He also has a history of an abdominal wall cellulitis for which she was hospitalized and he was treated for gram-negative cellulitis with Enterobacter and Klebsiella and this was at the site of the PEG tube that was essentially replaced without any subsequent recurrence. On 07/14/2024, the patient is still having episodes of hemoptysis although this is subsided compared to yesterday. Based on that, the patient has been kept n.p.o. and the patient underwent a bronchoscopy today. The upper airway was within normal limits. The trachea was normal. Loose bloody respiratory secreti ons were encountered throughout the patient's airways and there was diffuse mucosal inflammatory changes specially in the left lower lobe bronchus and the various segments. Noted the various segments of the right lower lobe were also atelectatic. I was able to review the CT scan of the chest that was done and it [facility] and there is no evidence of any pulmonary embolism. Some limited groundglass opacity seen in the right midlung and the inferior right upper lobe which could be potentially infectious. I performed a bronchoscopy and a bronchioloalveolar lavage. The patient is currently on no antibiotics. Going to start him on empiric antibiotic coverage with Levaquin. Will monitor his hemoptysis. No anticoagulants for now. Viral screen has been negative. Procalcitonin level is at 0.07. Will be also given 2 dose of IV Solu-Medrol. On 07/15/2024, patient is being seen for a follow-up. The patient is status post bronchoscopy and therapeutic airway suctioning. Please refer to the detailed report post bronchoscopy. The patient may have a right lung pneumonia/tracheobronchitis specially the right lower lobe. Currently on Levaquin. Currently on IV Solu-Medrol. Hemoptysis has subsided. The bronchoalveolar lavage that was collected from the right lower lobe is still pending. He is afebrile. No significant respiratory distress. Continues to receive enteral feeding for nutritional support. Pulse ox 92% on room air oxygen. No other significant events overnight for now. Objective - Vital Signs Vital signs: Vital Signs Temp 98.2 F 07/15/24 09:13 Pulse 68 07/15/24 11:24 Resp 16 07/15/24 11:24 BP 149/90 07/15/24 11:24 Pulse Ox 92 L 07/15/24 11:24 FiO2 Intake & Output 07/14/24 07/15/24 07/15/24 18:59 06:59 18:59 Intake Total 120 10 Balance 120 10 Weight 74 kg Intake: IV 120 10 Invasive Line 1 20 10 Other: Voiding Method Toilet Toilet Toilet - Exam EYES: Pupils equal. Conjunctiva normal. Head exam was generally normal. There was no scleral icterus or corneal arcus. Mucous membranes were moist. HEENT: External appearance of nose and ears normal, oral cavity grossly normal. There is some erythema in the posterior oropharynx. No signs of any acute bleed NECK: JVD not raised; masses not palpable. HEART: First and second heart sounds are normal; no edema. LUNGS: Respiratory rate normal; decreased breath sounds, the patient has a weak cough ABDOMEN: Soft, nontender, liver spleen not palpable, no masses palpable. PEG tube site: There is dry clean and intact PSYCH: Alert and oriented x3; mood and affect normal. MUSCULOSKELETAL:No Clubbing/cyanosis;muscles-grossly intact. OA. NEUROLOGICAL: [Cranial nerves grossly intact; some facial asymmetry, intermi ttent tremor. Dysarthria. - Labs CBC & Chem 7: 07/15/24 07:59 07/15/24 07:59 Labs: Abnormal Lab Results - Last 24 Hours (Table) 07/14/24 07/15/24 07/15/24 Range/Units 13:17 07:59 07:59 RBC 4.18 L (4.30-5.90) m/uL MCV 105.6 H (80.0-100.0) fL Plt Count 131 L (150-450) k/uL Lymphocytes # 0.8 L (1.0-4.8) k/uL Sodium 136 L (137-145) mmol/L Carbon Dioxide 31 H (22-30) mmol/L BUN 30 H (9-20) mg/dL Glucose 119 H (74-99) mg/dL Alkaline Phosphatase 190 H (38-126) U/L Fluid Appearance Bloody A (Clear) Fluid RBC 75252 H (0-2000) /uL Microbiology - Last 24 Hours (Table) 07/14/24 13:17 Gram Stain - Preliminary Bronchoalviolar Lavage - Right 07/13/24 10:33 Gram Stain - Final Sputum Sputum Culture - Final Assessment and Plan Plan: Hemoptysis, as the patient is coughing up mucoid bloody secretions. N no worsening shortness of breath. No fever. Procalcitonin level is not elevated and the patient chest x-ray shows chronic right hemidiaphragmatic elevation. No aspiration. CAT scan of the chest that was done at [facility] was reported to be negative for any acute abnormalities. The patient was receiving Zithromax on outpatient basis. Exact source of this bleed is unknown. No anticoagulants. 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 Chronic dysphagia and the patient has enteral feeding for nutritional support via PEG tube Multiple myeloma History of CVA, ambulate with the help of a cane History of fracture of the iliac crest History of recurrent pneumonias History of atrial flutter Previous history of history of pseudomonal tracheal bronchitis/pneumonia Plan Hemoptysis is subsiding Patient was started on IV Levaquin Patient is on IV Solu-Medrol Awaiting the results of the bronchoalveolar lavage from the right lower lobe. Bronchoscopy was completed on 07/14/2024 We reviewed the CAT scan of the chest was done at [facility] and there is some limited groundglass changes involving the right middle lobe and inferior/posterior right upper lobe. This could be potentially infectious in nature. Patient underwent bronchoscopy endobronchial lavage and diffuse mucosal inflammatory changes were seen in the right lower lobe bronchus and the various segments. Bronchoalveolar lavage was done pending cultures. Procalcitonin is negative. Rule out viral infection/viral tracheobronchitis. Rule out bacterial infection. Rule out aspiration pneumonitis. Continue enteral feeding for nutritional support Resume home medications Clinically stable Will follow Monitor hemoptysis
--- NOTE | 2024-07-16 02:37 | PN ---
PROGRESS NOTE DATE OF SERVICE: 07/15/2024 SUBJECTIVE: This is an 79-year-old gentleman admitted with recurrent hemoptysis with bronchoscopy. The bronchoscopic BAL final cultures are pending at this time. Bronchoscopy showed mucosal inflammatory changes involving the left lower lobe bronchus. No chest pain. No palpitation. OBJECTIVE: VITAL SIGNS: Pulse is 68, blood pressure 140/90, respirations 16. CHEST: A few scattered rhonchi and crackles. ABDOMEN: Soft. NERVOUS SYSTEM: Nonfocal. LABORATORY DATA: Sodium 136. Rest of the labs are noted. ASSESSMENT: 1. Hemoptysis, recurrent, status post bronchoscopy showing mucosal inflammatory changes involving the left lower lobe bronchus and various segments of the right lower lobe. 2. History of facial onset sensory-motor neuropathy FOSMN. 3. History of rheumatoid arthritis. 4. History of cerebrovascular accident, transient ischemic attack. 5. Chronic obstructive pulmonary disease. 6. History of atrial fibrillation. 7. Multiple complex medical issues. RECOMMENDATIONS AND DISCUSSION: Recommend to continue current management and continue symptomatic treatment. Continue with antibiotics. I would await for the final report of the cultures to rule out any severe tracheobronchitis. Otherwise, continue the empiric antibiotics. Closely follow. Further recommendations to follow. The patient is on Levaquin at this time. MMODL / IJN: [id number] /
--- NOTE | 2024-07-16 13:00 | P.PN ---
Subjective Progress Note Date: 07/16/24 This is a 79-year-old male patient came into the emergency department because of episodes of hemoptysis this been going on for the past 2 days. Initially went to [facility] where he was given a CAT scan of the chest and no acute abnormalities was identified. Reports are not available. The patient was advised to undergo bronchoscopy. He declined and he left AMA. He came into our emergency department following that. Chest x-ray was done that showed no significant acute abnormalities and the patient is known to have chronic right hemidiaphragmatic elevation. He was given Zithromax and was discharged home to come back to the emergency because of ongoing episodes of cough and bloody mucoid sputum. No fever. No worsening shortness of breath. No trauma to the chest. No anticoagulants. The patient has had several episodes of hemoptysis where he is coughed up bloody secretions. His white cell count is at 7.6 with a hemoglobin 15.0. Platelet count is at 143. Normal coagulation profile. Normal electrolytes. Troponins are negative. Procalcitonin level is 0.07. No epistaxis. No reported aspiration of foreign bodies. Chest x-ray was repeated in the emergency and the findings are essentially stable. Some atelectatic changes in lung base especially on the right. The right hemidiaphragm is chronically elevated and there is some adjacent atelectasis. The patient is currently on room air oxygen with a pulse ox of 94%. Noted the patient is known to me. He is known to have COPD maintained on Breo Ellipta and Combivent rescue inhaler on as-needed basis. 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 He has chronic difficulty swallowing and the patient has a PEG tube for enteral feeding for nutritional support. 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 He has had previous episodes of pneumonias of an aspiration type and he suffers from multiple myeloma, followed up at [facility] and has previous history of CVA and he ambulates with the help of a cane. He also has a history of an abdominal wall cellulitis for which she was hospitalized and he was treated for gram-negative cellulitis with Enterobacter and Klebsiella and this was at the site of the PEG tube that was essentially replaced without any subsequent recurrence. On 07/14/2024, the patient is still having episodes of hemoptysis although this is subsided compared to yesterday. Based on that, the patient has been kept n.p.o. and the patient underwent a bronchoscopy today. The upper airway was within normal limits. The trachea was normal. Loose bloody respiratory secreti ons were encountered throughout the patient's airways and there was diffuse mucosal inflammatory changes specially in the left lower lobe bronchus and the various segments. Noted the various segments of the right lower lobe were also atelectatic. I was able to review the CT scan of the chest that was done and it [facility] and there is no evidence of any pulmonary embolism. Some limited groundglass opacity seen in the right midlung and the inferior right upper lobe which could be potentially infectious. I performed a bronchoscopy and a bronchioloalveolar lavage. The patient is currently on no antibiotics. Going to start him on empiric antibiotic coverage with Levaquin. Will monitor his hemoptysis. No anticoagulants for now. Viral screen has been negative. Procalcitonin level is at 0.07. Will be also given 2 dose of IV Solu-Medrol. On 07/15/2024, patient is being seen for a follow-up. The patient is status post bronchoscopy and therapeutic airway suctioning. Please refer to the detailed report post bronchoscopy. The patient may have a right lung pneumonia/tracheobronchitis specially the right lower lobe. Currently on Levaquin. Currently on IV Solu-Medrol. Hemoptysis has subsided. The bronchoalveolar lavage that was collected from the right lower lobe is still pending. He is afebrile. No significant respiratory distress. Continues to receive enteral feeding for nutritional support. Pulse ox 92% on room air oxygen. No other significant events overnight for now. 07/16/2024, the patient is being seen for a follow-up. Hemoptysis gradually im proving. The sputum sample is positive for corynebacterium based on the final culture. The viral screen was negative. Remains on Levaquin. Remains on IV Solu-Medrol. No fever. Hemodynamically stable. Tolerating enteral feeding for nutritional support. White cell count is 5.4 with a hemoglobin 14.2 and the BUN is 30 with a creatinine of 0.7 and sodium levels at 136. Hemoptysis is improving. Objective - Vital Signs Vital signs: Vital Signs Temp 98.1 F 07/16/24 08:00 Pulse 72 07/16/24 08:41 Resp 18 07/16/24 08:00 BP 134/79 07/16/24 08:41 Pulse Ox 91 L 07/16/24 08:00 FiO2 Intake & Output 07/15/24 07/16/24 07/16/24 18:59 06:59 18:59 Weight 73.3 kg Other: Voiding Method Toilet Toilet - Exam EYES: Pupils equal. Conjunctiva normal. Head exam was generally normal. There was no scleral icterus or corneal arcus. Mucous membranes were moist. HEENT: External appearance of nose and ears normal, oral cavity grossly normal. There is some erythema in the posterior oropharynx. No signs of any acute bleed NECK: JVD not raised; masses not palpable. HEART: First and second heart sounds are normal; no edema. LUNGS: Respiratory rate normal; decreased breath sounds, the patient has a weak cough ABDOMEN: Soft, nontender, liver spleen not palpable, no masses palpable. PEG tube site: There is dry clean and intact PSYCH: Alert and oriented x3; mood and affect normal. MUSCULOSKELETAL:No Clubbing/cyanosis;muscles-grossly intact. OA. NEUROLOGICAL: [Cranial nerves grossly intact; some facial asymmetry, intermittent tremor. Dysarthria. - Labs CBC & Chem 7: 07/15/24 07:59 07/15/24 07:59 Labs: Abnormal Lab Results - Last 24 Hours (Table) 07/15/24 Range/Units 07:59 Sodium 136 L (137-145) mmol/L Carbon Dioxide 31 H (22-30) mmol/L BUN 30 H (9-20) mg/dL Glucose 119 H (74-99) mg/dL Alkaline Phosphatase 190 H (38-126) U/L Microbiology - Last 24 Hours (Table) 07/14/24 13:17 Gram Stain - Preliminary Bronchoalviolar Lavage - Right Bronchial Washings Culture - Preliminary Assessment and Plan Plan: Corynebacterium pneumonia, possible in this patient who is somewhat immunocompromise because of his multiple myeloma the patient has chronic respiratory insufficiency/COPD/right hemidiaphragmatic paralysis and vocal cord paralysis. The patient is currently on fluoroquinolones. Hemoptysis, as the patient is coughing up mucoid bloody secretions. N no worsening shortness of breath. No fever. Procalcitonin level is not elevated and the patient chest x-ray shows chronic right hemidiaphragmatic elevation. No aspiration. Bronchoscopy was done and the patient is currently on fluoroquinolones/Levaquin and IV Solu-Medrol. 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 Bronchoscopy was completed on 07/14/2024 We reviewed the CAT scan of the chest was done at [facility] and there is some limited groundglass changes involving the right middle lobe and inferior/posterior right upper lobe. This could be potentially infectious in nature. Patient underwent bronchoscopy endobronchial lavage and diffuse mucosal inflammatory changes were seen in the right lower lobe bronchus and the various segments. Bronchoalveolar lavage was done pending cultures. Procalcitonin is negative. The viral culture was negative. Rule out bacterial infection. Continue enteral feeding for nutritional support Resume home medications Clinically stable Will follow Monitor hemoptysis Possible home tomorrow on a course of Levaquin and a prednisone burst taper as long as the hemoptysis remains inactive.
--- NOTE | 2024-07-16 16:38 | P.PN ---
Subjective Progress Note Date: 07/16/24 79-year-old male patient came into the emergency department because of episodes of hemoptysis this been going on for the past 2 days. Initially went to [facility] where he was given a CAT scan of the chest and no acute abnormalities was identified. Reports are not available. The patient was advised to undergo bronchoscopy. He declined and he left AMA. He came into our emergency department following that. Chest x-ray was done that showed no significant acute abnormalities and the patient is known to have chronic right hemidiaphragmatic elevation. He was given Zithromax and was discharged home to come back to the emergency because of ongoing episodes of cough and bloody mucoid sputum. No fever. No worsening shortness of breath. No trauma to the chest. No anticoagulants. The patient has had several episodes of hemoptysis where he is coughed up bloody secretions. His white cell count is at 7.6 with a hemoglobin 15.0. Platelet count is at 143. Normal coagulation profile. Normal electrolytes. Troponins are negative. Procalcitonin level is 0.07. No epistaxis. No reported aspiration of foreign bodies. Chest x-ray was repeated in the emergency and the findings are essentially stable. Some atelectatic changes in lung base especially on the right. The right hemidiaphragm is chronically elevated and there is some adjacent atelectasis. The patient is currently on room air oxygen with a pulse ox of 94%. Objective - Vital Signs Vital signs: Vital Signs Temp 98.1 F 07/16/24 08:00 Pulse 72 07/16/24 08:41 Resp 18 07/16/24 08:00 BP 134/79 07/16/24 08:41 Pulse Ox 91 L 07/16/24 08:00 FiO2 Intake & Output 07/15/24 07/16/24 07/16/24 18:59 06:59 18:59 Weight 73.3 kg Other: Voiding Method Toilet Toilet - Exam Head exam was generally normal. There was no scleral icterus or corneal arcus. Mucous membranes were moist. HEENT: External appearance of nose and ears normal, oral cavity grossly normal. There is some erythema in the posterior oropharynx. No signs of any acute bleed NECK: JVD not raised; masses not palpable. HEART: First and second heart sounds are normal; no edema. LUNGS: Respiratory rate normal; decreased breath sounds, the patient has a weak cough ABDOMEN: Soft, nontender, liver spleen not palpable, no masses palpable. PEG tube site: There is dry clean and intact PSYCH: Alert and oriented x3; mood and affect normal. MUSCULOSKELETAL:No Clubbing/cyanosis;muscles-grossly intact. OA. NEUROLOGICAL: [Cranial nerves grossly intact; some facial asymmetry, intermittent tremor. - Labs CBC & Chem 7: 07/15/24 07:59 07/15/24 07:59 Labs: Microbiology - Last 24 Hours (Table) 07/14/24 13:17 Gram Stain - Final Bronchoalviolar Lavage - Right Bronchial Washings Culture - Final Corynebacterium striatum group Assessment and Plan Assessment: Corynebacterium pneumonia, possible in this patient who is somewhat immunocompromise because of his multiple myeloma the patient has chronic respiratory insufficiency/COPD/right hemidiaphragmatic paralysis and vocal cord paralysis. The patient is currently on fluoroquinolones. Hemoptysis, as the patient is coughing up mucoid bloody secretions. N no worsening shortness of breath. No fever. Procalcitonin level is not elevated and the patient chest x-ray shows chronic right hemidiaphragmatic elevation. No aspiration. Bronchoscopy was done and the patient is currently on fluoroquinolones/Levaquin and IV Solu-Medrol. 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 Chronic dysphagia and the patient has enteral feeding for nutritional support via PEG tube Multiple myeloma Previous history of history of pseudomonal tracheal bronchitis/pneumonia Hemoptysis is subsiding Continue IV Levaquin Continue IV Solu-Medrol Bronchoalveolar lavage was positive for corynebacterium. Bronchoscopy was completed on 07/14/2024 We reviewed the CAT scan of the chest was done at [facility] and there is some limited groundglass changes involving the right middle lobe and inferior/posterior right upper lobe. This could be potentially infectious in nature. Patient underwent bronchoscopy endobronchial lavage and diffuse mucosal inflammatory changes were seen in the right lower lobe bronchus and the various segments. Bronchoalveolar lavage was done pending cultures. Procalcitonin is negative. The viral culture was negative. Rule out bacterial infection. Continue enteral feeding for nutritional support Resume home medications Clinically stable Will follow Monitor hemoptysis Pulmonary recommending possible home tomorrow on a course of Levaquin and a prednisone burst taper as long as the hemoptysis remains inactive.
[2024-07-17 08:08] VITALS: RESP 18
[2024-07-17] MEDS: predniSONE 20 MG TAB PO SCH (09:26)
[2024-07-17] MEDS: LEVOFLOXACIN 750 MG TAB PO SCH (09:30)
[2024-07-17 11:36] VITALS: PULSE 67
--- NOTE | 2024-07-17 11:45 | P.PN ---
Subjective Progress Note Date: 07/17/24 This is a 79-year-old male patient came into the emergency department because of episodes of hemoptysis this been going on for the past 2 days. Initially went to [facility] where he was given a CAT scan of the chest and no acute abnormalities was identified. Reports are not available. The patient was advised to undergo bronchoscopy. He declined and he left AMA. He came into our emergency department following that. Chest x-ray was done that showed no significant acute abnormalities and the patient is known to have chronic right hemidiaphragmatic elevation. He was given Zithromax and was discharged home to come back to the emergency because of ongoing episodes of cough and bloody mucoid sputum. No fever. No worsening shortness of breath. No trauma to the chest. No anticoagulants. The patient has had several episodes of hemoptysis where he is coughed up bloody secretions. His white cell count is at 7.6 with a hemoglobin 15.0. Platelet count is at 143. Normal coagulation profile. Normal electrolytes. Troponins are negative. Procalcitonin level is 0.07. No epistaxis. No reported aspiration of foreign bodies. Chest x-ray was repeated in the emergency and the findings are essentially stable. Some atelectatic changes in lung base especially on the right. The right hemidiaphragm is chronically elevated and there is some adjacent atelectasis. The patient is currently on room air oxygen with a pulse ox of 94%. Noted the patient is known to me. He is known to have COPD maintained on Breo Ellipta and Combivent rescue inhaler on as-needed basis. 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 He has chronic difficulty swallowing and the patient has a PEG tube for enteral feeding for nutritional support. 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 He has had previous episodes of pneumonias of an aspiration type and he suffers from multiple myeloma, followed up at [facility] and has previous history of CVA and he ambulates with the help of a cane. He also has a history of an abdominal wall cellulitis for which she was hospitalized and he was treated for gram-negative cellulitis with Enterobacter and Klebsiella and this was at the site of the PEG tube that was essentially replaced without any subsequent recurrence. On 07/14/2024, the patient is still having episodes of hemoptysis although this is subsided compared to yesterday. Based on that, the patient has been kept n.p.o. and the patient underwent a bronchoscopy today. The upper airway was within normal limits. The trachea was normal. Loose bloody respiratory secreti ons were encountered throughout the patient's airways and there was diffuse mucosal inflammatory changes specially in the left lower lobe bronchus and the various segments. Noted the various segments of the right lower lobe were also atelectatic. I was able to review the CT scan of the chest that was done and it [facility] and there is no evidence of any pulmonary embolism. Some limited groundglass opacity seen in the right midlung and the inferior right upper lobe which could be potentially infectious. I performed a bronchoscopy and a bronchioloalveolar lavage. The patient is currently on no antibiotics. Going to start him on empiric antibiotic coverage with Levaquin. Will monitor his hemoptysis. No anticoagulants for now. Viral screen has been negative. Procalcitonin level is at 0.07. Will be also given 2 dose of IV Solu-Medrol. On 07/15/2024, patient is being seen for a follow-up. The patient is status post bronchoscopy and therapeutic airway suctioning. Please refer to the detailed report post bronchoscopy. The patient may have a right lung pneumonia/tracheobronchitis specially the right lower lobe. Currently on Levaquin. Currently on IV Solu-Medrol. Hemoptysis has subsided. The bronchoalveolar lavage that was collected from the right lower lobe is still pending. He is afebrile. No significant respiratory distress. Continues to receive enteral feeding for nutritional support. Pulse ox 92% on room air oxygen. No other significant events overnight for now. 07/16/2024, the patient is being seen for a follow-up. Hemoptysis gradually im proving. The sputum sample is positive for corynebacterium based on the final culture. The viral screen was negative. Remains on Levaquin. Remains on IV Solu-Medrol. No fever. Hemodynamically stable. Tolerating enteral feeding for nutritional support. White cell count is 5.4 with a hemoglobin 14.2 and the BUN is 30 with a creatinine of 0.7 and sodium levels at 136. Hemoptysis is improving. On 07/17/2024, the patient is being seen for a follow-up. The patient is doing well. Hemoptysis subsided significantly. No new complaints for now. Bronchoscopy was completed and the patient was found to have corynebacterium and a bronchioloalveolar lavage. The white cell count of 5.4, hemoglobin is not 14.2 and a platelet count of 131. BUN 30 with a creatinine 0.7 and sodium level is at 136. The patient remains on room air oxygen. Afebrile. Hemodynamically stable. Objective - Vital Signs Vital signs: Vital Signs Temp 98.3 F 07/17/24 08:00 Pulse 64 07/17/24 08:00 Resp 18 07/17/24 08:00 BP 142/82 07/17/24 08:00 Pulse Ox 95 07/17/24 08:00 FiO2 Intake & Output 07/16/24 07/17/24 07/17/24 18:59 06:59 18:59 Weight 73.4 kg Other: Voiding Method Toilet Toilet - Exam EYES: Pupils equal. Conjunctiva normal. Room air oxygen the patient is calm and comfortable Head exam was generally normal. There was no scleral icterus or corneal arcus. Mucous membranes were moist. HEENT: External appearance of nose and ears normal, oral cavity grossly normal. There is some erythema in the posterior oropharynx. No signs of any acute bleed NECK: JVD not raised; masses not palpable. HEART: First and second heart sounds are normal; no edema. LUNGS: Respiratory rate normal; decreased breath sounds, the patient has a weak cough ABDOMEN: Soft, nontender, liver spleen not palpable, no masses palpable. PEG tube site: There is dry clean and intact PSYCH: Alert and oriented x3; mood and affect normal. MUSCULOSKELETAL:No Clubbing/cyanosis;muscles-grossly intact. OA. NEUROLOGICAL: [Cranial nerves grossly intact; some facial asymmetry, intermittent tremor. Dysarthria. - Labs CBC & Chem 7: 07/15/24 07:59 07/15/24 07:59 Labs: Microbiology - Last 24 Hours (Table) 07/14/24 13:17 Gram Stain - Final Bronchoalviolar Lavage - Right Bronchial Washings Culture - Final Corynebacterium striatum group Assessment and Plan Plan: Corynebacterium pneumonia, possible in this patient who is somewhat immunocompromise because of his multiple myeloma the patient has chronic respiratory insufficiency/COPD/right hemidiaphragmatic paralysis and vocal cord paralysis. The patient is currently on fluoroquinolones. Hemoptysis, as the patient is coughing up mucoid bloody secretions. N no worsening shortness of breath. No fever. Procalcitonin level is not elevated and the patient chest x-ray shows chronic right hemidiaphragmatic elevation. No aspiration. Bronchoscopy was done and the patient is currently on fluo roquinolones/Levaquin and IV Solu-Medrol. 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 Chronic dysphagia and the patient has enteral feeding for nutritional support via PEG tube Multiple myeloma History of CVA, ambulate with the help of a cane History of fracture of the iliac crest History of recurrent pneumonias History of atrial flutter Previous history of history of pseudomonal tracheal bronchitis/pneumonia Plan Hemoptysis subsided Continue oral Levaquin for a total of 10 days Prednisone burst taper at time of discharge Bronchoalveolar lavage was positive for corynebacterium. Bronchoscopy was completed on 07/14/2024 We reviewed the CAT scan of the chest was done at [facility] and there is some limited groundglass changes involving the right middle lobe and inferior/posterior right upper lobe. This could be potentially infectious in nature. Patient underwent bronchoscopy endobronchial lavage and diffuse mucosal inflammatory changes were seen in the right lower lobe bronchus and the various segments. Bronchoalveolar lavage was positive for Corynebacterium species Continue enteral feeding for nutritional support Resume home medications Clinically stable Monitor hemoptysis To be discharged home today to be followed up on outpatient basis.
--- NOTE | 2024-07-17 15:08 | P.DS ---
Providers Date of admission: 07/13/24 12:41 Expected date of discharge: 07/17/24 Attending physician: Madison Bernstein Consults: 07/13/24 12:26 Consult Physician Urgent Consulting Provider: Gina Magdaleno Consult Reason/Comments: Hemoptysis Do you want consulting provider notified?: Yes Primary care physician: Josef Guerrero MD Hospital Course: 79-year-old male patient came into the emergency department because of episodes of hemoptysis this been going on for the past 2 days. Initially went to [facility] where he was given a CAT scan of the chest and no acute abnormalities was identified. Reports are not available. The patient was advised to undergo bronchoscopy. He declined and he left AMA. He came into our emergency department following that. Chest x-ray was done that showed no significant acute abnormalities and the patient is known to have chronic right hemidiaphragmatic elevation. He was given Zithromax and was discharged home to come back to the emergency because of ongoing episodes of cough and bloody mucoid sputum. No fever. No worsening shortness of breath. No trauma to the chest. No anticoagulants. The patient has had several episodes of hemoptysis where he is coughed up bloody secretions. His white cell count is at 7.6 with a hemoglobin 15.0. Platelet count is at 143. Normal coagulation profile. Normal electrolytes. Troponins are negative. Procalcitonin level is 0.07. No epistaxis. No reported aspiration of foreign bodies. Chest x-ray was repeated in the emergency and the findings are essentially stable. Some atelectatic changes in lung base especially on the right. The right hemidiaphragm is chronically elevated and there is some adjacent atelectasis. The patient is currently on room air oxygen with a pulse ox of 94%. Noted the patient is known to me. He is known to have COPD maintained on Breo Ellipta and Combivent rescue inhaler on as-needed basis. 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 He has chronic difficulty swallowing and the patient has a PEG tube for enteral feeding for nutritional support. 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 He has had previous episodes of pneumonias of an aspiration type and he suffers from multiple myeloma, followed up at [facility] and has previous history of CVA and he ambulates with the help of a cane. He also has a history of an abdominal wall cellulitis for which she was hospitalized and he was treated for gram-negative cellulitis with Enterobacter and Klebsiella and this was at the site of the PEG tube that was essentially replaced without any subsequent recurrence. Corynebacterium pneumonia, possible in this patient who is somewhat immunocompromise because of his multiple myeloma the patient has chronic respiratory insufficiency/COPD/right hemidiaphragmatic paralysis and vocal cord paralysis. The patient is currently on fluoroquinolones. Hemoptysis, as the patient is coughing up mucoid bloody secretions. N no worsening shortness of breath. No fever. Procalcitonin level is not elevated and the patient chest x-ray shows chronic right hemidiaphragmatic elevation. No aspiration. Bronchoscopy was done and the patient is currently on fluoroquinolones/Levaquin and IV Solu-Medrol. 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 Chronic dysphagia and the patient has enteral feeding for nutritional support via PEG tube Multiple myeloma Previous history of history of pseudomonal tracheal bronchitis/pneumonia Hemoptysis is subsiding Continue IV Levaquin Continue IV Solu-Medrol Bronchoalveolar lavage was positive for corynebacterium. Bronchoscopy was completed on 07/14/2024 We reviewed the CAT scan of the chest was done at [facility] and there is some limited groundglass changes involving the right middle lobe and inferior/posterior right upper lobe. This could be potentially infectious in nature. Patient underwent bronchoscopy endobronchial lavage and diffuse mucosal inflammatory changes were seen in the right lower lobe bronchus and the various segments. Bronchoalveolar lavage was done pending cultures. Procalcitonin is negative. The viral culture was negative. Rule out bacterial infection. Continue enteral feeding for nutritional support Resume home medications Clinically stable On 07/14/2024, the patient is still having episodes of hemoptysis although this is subsided compared to yesterday. Based on that, the patient has been kept n.p.o. and the patient underwent a bronchoscopy today. The upper airway was within normal limits. The trachea was normal. Loose bloody respiratory secretions were encountered throughout the patient's airways and there was diffuse mucosal inflammatory changes specially in the left lower lobe bronchus and the various segments. Noted the various segments of the right lower lobe were also atelectatic. I was able to review the CT scan of the chest that was done and it [facility] and there is no evidence of any pulmonary embolism. Some limited groundglass opacity seen in the right midlung and the inferior right upper lobe which could be potentially infectious. I performed a bronchoscopy and a bronchioloalveolar lavage. The patient is currently on no antibiotics. Going to start him on empiric antibiotic coverage with Levaquin. Will monitor his hemoptysis. No anticoagulants for now. Viral screen has been negative. Procalcitonin level is at 0.07. Will be also given 2 dose of IV Solu-Medrol. On 07/15/2024, patient is being seen for a follow-up. The patient is status post bronchoscopy and therapeutic airway suctioning. Please refer to the detailed report post bronchoscopy. The patient may have a right lung pneumonia/tracheobronchitis specially the right lower lobe. Currently on Levaquin. Currently on IV Solu-Medrol. Hemoptysis has subsided. The bronchoalveolar lavage that was collected from the right lower lobe is still pending. He is afebrile. No significant respiratory distress. Continues to receive enteral feeding for nutritional support. Pulse ox 92% on room air oxygen. No other significant events overnight for now. 07/16/2024, the patient is being seen for a follow-up. Hemoptysis gradually improving. The sputum sample is positive for corynebacterium based on the final culture. The viral screen was negative. Remains on Levaquin. Remains on IV Solu-Medrol. No fever. Hemodynamically stable. Tolerating enteral feeding for nutritional support. White cell count is 5.4 with a hemoglobin 14.2 and the BUN is 30 with a creatinine of 0.7 and sodium levels at 136. Hemoptysis is improving. On 07/17/2024, the patient is being seen for a follow-up. The patient is doing well. Hemoptysis subsided significantly. No new complaints for now. Bronchoscopy was completed and the patient was found to have corynebacterium and a bronchioloalveolar lavage. The white cell count of 5.4, hemoglobin is not 14.2 and a platelet count of 131. BUN 30 with a creatinine 0.7 and sodium level is at 136. The patient remains on room air oxygen. Afebrile. Hemodynamically stable. Patient is stable for discharge on oral Levaquin and steroid burst Plan - Discharge Summary Discharge Rx Participant: Yes New Discharge Prescriptions: New predniSONE [Deltasone] 40 mg PO DAILY 5 Days #10 tab Levofloxacin [Levaquin] 750 mg PO DAILY 6 Days #6 tab Continue Fluticasone/Vilanterol [Breo Ellipta 200-25 Mcg Inhaler] 1 puff INHALATION RT-DAILY Metoprolol Tartrate [Lopressor] 12.5 mg PO DAILY Gabapentin 600 mg PO HS Pantoprazole [Protonix] 40 mg PO BID #60 tab Loratadine [Claritin] 10 mg PO DAILY PRN PRN Reason: Allergy Symptoms Ramelteon 8 mg PO HS PRN PRN Reason: Insomnia guaiFENesin [Mucinex] 600 mg PO BID PRN PRN Reason: COUGHING Albuterol Sulfate [Albuterol Sulfate Hfa] 2 puff PO RT-Q4H PRN PRN Reason: Shortness Of Breath Ipratropium/Albuter 20-100Mcg [Combivent Respimat 20-100Mcg Inhaler] 1 puff INHALATION RT-QID PRN PRN Reason: Shortness Of Breath Discontinued Azithromycin [Zithromax Z Pack] See Taper PO DIRECTED Discharge Medication List Fluticasone/Vilanterol [Breo Ellipta 200-25 Mcg Inhaler] 1 puff INHALATION RT- DAILY 10/24/18 [History] Metoprolol Tartrate [Lopressor] 12.5 mg PO DAILY 12/26/18 [History] Gabapentin 600 mg PO HS 04/16/22 [History] Ramelteon 8 mg PO HS PRN 04/16/22 [History] guaiFENesin [Mucinex] 600 mg PO BID PRN 04/19/22 [History] Pantoprazole [Protonix] 40 mg PO BID #60 tab 04/23/22 [Rx] Albuterol Sulfate [Albuterol Sulfate Hfa] 2 puff PO RT-Q4H PRN 04/04/24 [History] Ipratropium/Albuter 20-100Mcg [Combivent Respimat 20-100Mcg Inhaler] 1 puff INHALATION RT-QID PRN 07/13/24 [History] Loratadine [Claritin] 10 mg PO DAILY PRN 07/13/24 [History] Levofloxacin [Levaquin] 750 mg PO DAILY 6 Days #6 tab 07/17/24 [Rx] predniSONE [Deltasone] 40 mg PO DAILY 5 Days #10 tab 07/17/24 [Rx] Follow up Appointment(s)/Referral(s): Josef Guerrero MD [Primary Care Provider] - 1-2 days Discharge Disposition: HOME SELF-CARE
[2024-07-17 15:10] VITALS: BP 136/77; TEMP 97.4
== END 2024-07-17 16:01 | disposition home or self-care (01) | DRG 178 ==
LOC: EC 09:39 → 4SSUR 12:41 → 3SCARD 21:35
PROVIDERS: ADMIT Hospitalist; ATTEND Hospitalist
PROC: 0B918ZZ Drainage of Trachea, Via Natural or Artificial Opening Endoscopic (ICD-10-PCS; 2024-07-14)
PROC: 0B9F8ZX Drainage of Right Lower Lung Lobe, Via Natural or Artificial Opening Endoscopic, Diagnostic (ICD-10-PCS; principal; 2024-07-14 08:15)
DX: J15.8 Pneumonia due to other specified bacteria (principal); C90.00 Multiple myeloma not having achieved remission; R04.2 Hemoptysis; J98.11 Atelectasis; J44.0 Chronic obstructive pulmonary disease with (acute) lower respiratory infection; G12.29 Other motor neuron disease; D84.9 Immunodeficiency, unspecified; J38.01 Paralysis of vocal cords and larynx, unilateral; J98.6 Disorders of diaphragm; I10 Essential (primary) hypertension; I48.91 Unspecified atrial fibrillation; M06.9 Rheumatoid arthritis, unspecified; K21.9 Gastro-esophageal reflux disease without esophagitis; N42.9 Disorder of prostate, unspecified; R13.10 Dysphagia, unspecified; J40 Bronchitis, not specified as acute or chronic; Z88.1 Allergy status to other antibiotic agents; Z88.0 Allergy status to penicillin; Z88.2 Allergy status to sulfonamides; Z87.891 Personal history of nicotine dependence; Z86.73 Personal history of transient ischemic attack (TIA), and cerebral infarction without residual deficits; Z93.1 Gastrostomy status
CPT/HCPCS: 31624; 36415; 71046; 80053; 84145; 84484; 85025; 85610; 85730; 86140; 87070; 87102; 87116; 87205; 87206; 87496; 87498; 87502; 87529; 87634; 87635; 87636; 87798; 89050; 93005; 94640; 99285

== ENCOUNTER 2024-07-26 10:05 | Inpatient (IN) | payer MEDICARE ==
--- NOTE | 2024-07-26 10:47 | ED ---
General Adult HPI - General Chief complaint: Shortness of Breath Stated complaint: SOB,cough Time Seen by Provider: 07/26/24 10:29 Source: patient, EMS Mode of arrival: EMS Limitations: no limitations - History of Present Illness Initial comments: Dictation was produced using [employer] dictation software. please excuse any grammatical, word or spelling errors. Chief Complaint: 79-year-old male with productive cough History of Present Illness: Patient is 79-year-old male he has multiple comorbidities including A-fib, chronic lung issues. States that he has been having fever and productive cough. States that he has had bronchoscopies in the past where large mucous plugs have been removed. Patient states he feels weak. States that he has as needed oxygen at home that he felt he needed to start using. He is worried that he is having a pneumonia again. The ROS documented in this emergency department record has been reviewed and confirmed by me. Those systems with pertinent positive or negative responses have been documented in the HPI. All other systems are other negative and/or noncontributory. - Related Data Home Medications Medication Instructions Recorded Confirmed Fluticasone/Vilanterol [Breo 1 puff INHALATION RT-DAILY 10/24/18 07/13/24 Ellipta 200-25 Mcg Inhaler] Metoprolol Tartrate [Lopressor] 12.5 mg PO DAILY 12/26/18 07/13/24 Gabapentin 600 mg PO HS 04/16/22 07/13/24 Ramelteon 8 mg PO HS PRN 04/16/22 07/13/24 guaiFENesin [Mucinex] 600 mg PO BID PRN 04/19/22 07/13/24 Albuterol Sulfate [Albuterol 2 puff PO RT-Q4H PRN 04/04/24 07/13/24 Sulfate Hfa] Ipratropium/Albuter 20-100Mcg 1 puff INHALATION RT-QID PRN 07/13/24 07/13/24 [Combivent Respimat 20-100Mcg Inhaler] Loratadine [Claritin] 10 mg PO DAILY PRN 07/13/24 07/13/24 Previous Rx's Medication Instructions Recorded Pantoprazole [Protonix] 40 mg PO BID #60 tab 04/23/22 Levofloxacin [Levaquin] 750 mg PO DAILY 6 Days #6 tab 07/17/24 predniSONE [Deltasone] 40 mg PO DAILY 5 Days #10 tab 07/17/24 Allergies Allergy/AdvReac Type Severity Reaction Status Date / Time azithromycin Allergy Swelling Verified 07/13/24 11:35 Penicillins Allergy Itching/David Verified 07/13/24 11:35 h piperacillin [From Zosyn] Allergy Itching Verified 07/13/24 11:35 Sulfa (Sulfonamide Allergy Rash/Hives Verified 07/13/24 11:35 Antibiotics) tazobactam [From Zosyn] Allergy Itching Verified 07/13/24 11:35 Review of Systems ROS Statement: Those systems with pertinent positive or pertinent negative responses have been documented in the HPI. ROS Other: All systems not noted in ROS Statement are negative. 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 sensitive rt elbow. History of Any Multi-Drug Resistant Organisms: None Reported Past Surgical History: Appendectomy, Hernia Repair, Orthopedic Surgery, Tonsillectomy Additional Past Surgical History / Comment(s): Field implant in throat ( vocal cords), peg tube, EGDs, colonoscopy, R inguinal hernia, L foot bunionectomy, hemorrhoidectomy, L ring trigger finger release, nasal reconstruction, cataracts/lens implants. no surgery on hip fx PEG TUBE left leg shorter than right after fracture healed Past Anesthesia/Blood Transfusion Reactions: No Reported Reaction Additional Past Anesthesia/Blood Transfusion Reaction / Comment(s): somewhat PARALYZED VOCAL CHORDS. Pt has received blood in past without reaction. sometimes slow to wake up. Past Psychological History: No Psychological Hx Reported Smoking Status: Former smoker Past Alcohol Use History: None Reported Past Drug Use History: None Reported - Past Family History Sister(s) Additional Family Medical History / Comment(s): passed colon CA Brother(s) Additional Family Medical History / Comment(s): sarcidosis Mother Family Medical History: COPD Additional Family Medical History / Comment(s): emphysema Son(s) Family Medical History: Hypertension Additional Family Medical History / Comment(s): lymphoma, sarcoidosis Father Family Medical History: No Reported History Additional Family Medical History / Comment(s): Father was healthy General Exam - General Exam Comments Initial Comments: PHYSICAL EXAM: General Impression: Alert and oriented x3, not in acute distress HEENT: Normocephalic atraumatic, extra-ocular movements intact, pupils equal and reactive to light bilaterally, mucous membranes moist. Cardiovascular: Heart regular rate and rhythm Chest: Able to complete full sentences, no retractions, no tachypnea Abdomen: abdomen soft, non-tender, non-distended, no organomegaly Musculoskeletal: Pulses present and equal in all extremities, no peripheral edema Motor: no focal deficits noted Neurological: CN II-XII grossly intact, no focal motor or sensory deficits noted Skin: Intact with no visualized rashes Psych: Normal affect and mood Limitations: no limitations Course Vital Signs 07/26/24 07/26/24 07/26/24 10:18 10:41 12:39 Temperature 99.3 F Pulse Rate 78 67 Respiratory 20 24 20 Rate Blood Pressure 100/69 O2 Sat by Pulse 92 L 88 L Oximetry Medical Decision Making - Medical Decision Making Was pt. sent in by a medical professional or institution (, [place], [facility], urgent care, hospital, or alf...) When possible be specific @ -No Did you speak to anyone other than the patient for history (EMS, parent, family, police, friend...)? What history was obtained from this source @ -No Did you review nursing and triage notes (agree or disagree)? Why? @ -I reviewed and agree with nursing and triage notes Were old charts reviewed (outside hosp., previous admission, EMS record, old EKG, old radiological studies, urgent care reports/EKG's, alf records)? Report findings @ -No old charts were reviewed Differential Diagnosis (chest pain, altered mental status, abdominal pain women, abdominal pain men, vaginal bleeding, musculoskeletal, weakness, fever, dyspnea, syncope, headache, dizziness, GI bleed, back pain, seizure, CVA, palpatations, mental health)? @ -Differential Dyspnea: Coronary syndrome, arrhythmia, tamponade, asthma, COPD, pulmonary embolism, pneumonia, pneumothorax, pulmonary effusion, anaphylaxis, diabetic ketoacidosis, flailed chest, pulmonary contusion, diaphragmatic rupture, anemia, neuromuscular, this is not meant to be an all-inclusive list. EKG interpreted by me (3pts min.). @ -My EKG interpretation: Ventricular rate 81, sinus rhythm,. 07/28/2012, QRS 97, QTc 366. No AK prolongation, no QTC prolongation, no ST or T-wave changes noted. . Overall, this EKG is unremarkable X-rays interpreted by me (1pt min.). @ -Chest x-ray shows retrocardiac left basilar opacity CT interpreted by me (1pt min.). @ -None done U/S interpreted by me (1pt. min.). @ -None done What testing was considered but not performed or refused? (CT, X-rays, U/S, labs)? Why? @ -None What meds were considered but not given or refused? Why? @ -None Was smoking cessation discussed for >3mins.? @ -No Were there social determinants of health that impacted care today? How? (Homelessness, low income, unemployed, alcoholism, drug addiction, transportation, low edu. Level, literacy, decrease access to med. care, usp, rehab)? @ -No Was there de-escalation of care discussed even if they declined (Discuss DNR or withdrawal of care, Hospice)? DNR status @ -No What co-morbidities impacted this encounter? (DM, HTN, Smoking, COPD, CAD, Cancer, CVA, ARF, Chemo, Hep., AIDS, mental health diagnosis, sleep apnea, morbid obesity)? @ -Chronic pulmonary history Was patient admitted / discharged? Hospital course, mention meds given and route, prescriptions, significant lab abnormalities, going to OR and other pertinent info. @ -79-year-old male presents to the emergency department with cough congestion fever. Patient here for dyspnea. Does not were continuous home O2 but felt li ke he is getting worse shortness of breath. He has a cough that is productive of sputum. Vital signs upon arrival shows 88% on room air. Laboratory evaluation obtained. No leukocytosis. Patient coronavirus positive. Rest of labs within acceptable limits. X-ray shows pneumonia. Patient treated with fluoroquinolones. Patient be admitted for pneumonia with hypoxic respiratory failure. Did you discuss the management of the patient with other professionals (professionals i.e. , [place], [facility], lab, RT, psych nurse, high school social studies tutor, cement truck loader, teacher, weapons officer naval activity, embedded case manager)? Give summary @ -Case discussed with hospitalist for admission Was critical care preformed (if so, how long)? @ -Yes, 33 minutes for management of hypoxic respiratory failure Undiagnosed new problem with uncertain prognosis? @ -No Drug Therapy requiring intensive monitoring for toxicity (Heparin, Nitro, Insulin, Cardizem)? @ -No Were any procedures done? @ -No Diagnosis/symptom? Acute, or Chronic, or Acute on Chronic? Uncomplicated (without systemic symptoms) or Complicated (systemic symptoms)? @ -Pneumonia, complicated by hypoxia Side effects of treatment? @ -No Exacerbation, Progression, or Severe Exacerbation? @ -No Poses a threat to life or bodily function? How? (Chest pain, [place], [place], pneumonia, PE, COPD, DKA, ARF, appy, cholecystitis, CVA, Diverticulitis, Homicidal, Suicidal, threat to staff... and all critical care pts) @ -yes - Lab Data Result diagrams: 07/26/24 11:16 07/26/24 11:16 Lab Results 07/26/24 07/26/24 07/26/24 Range/Units 11:16 11:16 11:16 WBC 8.6 (3.8-10.6) k/uL RBC 4.08 L (4.30-5.90) m/uL Hgb 14.2 (13.0-17.5) gm/dL Hct 42.2 (39.0-53.0) % MCV 103.4 H (80.0-100.0) fL MCH 34.8 (25.0-35.0) pg MCHC 33.7 (31.0-37.0) g/dL RDW 13.4 (11.5-15.5) % Plt Count 90 L (150-450) k/uL MPV 9.5 Neutrophils % 87 % Lymphocytes % 7 % Monocytes % 3 % Eosinophils % 1 % Basophils % 0 % Neutrophils # 7.4 (1.3-7.7) k/uL Lymphocytes # 0.6 L (1.0-4.8) k/uL Monocytes # 0.3 (0-1.0) k/uL Eosinophils # 0.1 (0-0.7) k/uL Basophils # 0.0 (0-0.2) k/uL Macrocytosis Slight Sodium 134 L (137-145) mmol/L Potassium 4.4 (3.5-5.1) mmol/L Chloride 94 L (98-107) mmol/L Carbon Dioxide 38 H (22-30) mmol/L Anion Gap 2 mmol/L BUN 40 H (9-20) mg/dL Creatinine 0.79 (0.66-1.25) mg/dL Est GFR (CKD-EPI)AfAm >90 (>60 ml/min/1.73 sqM) Est GFR (CKD-EPI)NonAf 85 (>60 ml/min/1.73 sqM) Glucose 90 (74-99) mg/dL Calcium 8.4 (8.4-10.2) mg/dL Total Bilirubin 0.7 (0.2-1.3) mg/dL AST 35 (17-59) U/L ALT 55 H (4-49) U/L Alkaline Phosphatase 119 (38-126) U/L Total Protein 5.9 L (6.3-8.2) g/dL Albumin 3.0 L (3.5-5.0) g/dL Influenza Type A (PCR) Not Detected (Not Detectd) Influenza Type B (PCR) Not Detected (Not Detectd) RSV (PCR) Not Detected (Not Detectd) SARS-CoV-2 (PCR) Detected A (Not Detectd) Disposition Clinical Impression: Pneumonia Disposition: ADMITTED IP TO THIS HOSP Condition: Fair Referrals: Josef Guerrero MD [Primary Care Provider] - 1-2 days Decision Time: 13:00
[2024-07-26 11:24] LABS: Basophils % (A) 0 %; Eosinophils # (A) 0.1 k/uL (0-0.7); Eosinophils % (A) 1 %; HCT 42.2 % (39.0-53.0); HGB 14.2 gm/dL (13.0-17.5); Lymphocytes # (A) 0.6 k/uL (1.0-4.8); Lymphocytes % (A) 7 %; MCH 34.8 pg (25.0-35.0); MCHC 33.7 g/dL (31.0-37.0); MCV 103.4 fL (80.0-100.0); Macrocytosis Slight; Mean Platelet Volume 9.5; Monocytes # (A) 0.3 k/uL (0-1.0); Monocytes % (A) 3 %; Neutrophils # (A) 7.4 k/uL (1.3-7.7); Neutrophils % (A) 87 %; RBC 4.08 m/uL (4.30-5.90); RDW 13.4 % (11.5-15.5); WBC 8.6 k/uL (3.8-10.6)
[2024-07-26 11:44] LABS: ALT 55 U/L (4-49); AST 35 U/L (17-59); African American GFR (CKD) >90 (>60 ml/min/1.73 sqM); Alkaline Phosphatase 119 U/L (38-126); Anion Gap 2 mmol/L; Blood Urea Nitrogen 40 mg/dL (9-20); Calcium 8.4 mg/dL (8.4-10.2); Carbon Dioxide 38 mmol/L (22-30); Chloride 94 mmol/L (98-107); Glucose 90 mg/dL (74-99); Non-African American GFR(CKD) 85 (>60 ml/min/1.73 sqM); Potassium 4.4 mmol/L (3.5-5.1); Sodium 134 mmol/L (137-145); Total Bilirubin 0.7 mg/dL (0.2-1.3); Total Protein 5.9 g/dL (6.3-8.2)
[2024-07-26 11:47] LABS: Platelet Count 90 k/uL (150-450)
--- NOTE | 2024-07-26 12:12 | XR ---
EXAMINATION TYPE: XR chest 2V DATE OF EXAM: 07/26/2024 11:38 AM COMPARISON: 07/13/2024 CLINICAL INDICATION: Male, 79 years old with history of cough, , TECHNIQUE: AP and lateral views FINDINGS: Ongoing asymmetric elevation right hemidiaphragm obscuring the right heart margin. There is some patc hy retrocardiac and left basilar opacity obscuring the hemidiaphragm on the lateral view. Possible tr ольга pleural effusion. IMPRESSION: 1. Patchy retrocardiac/left basilar opacity could represent atelectasis or an infiltrate/pneumonia. C linically correlate. 2. Ongoing asymmetric elevation right hemidiaphragm. If concern for hemidiaphragmatic paralysis, a fl uoroscopic sniff test could be performed. [facility], , 07/26/2024 12:10 PM
[2024-07-26] MEDS ORDERED: PNEUMONIA PROTOCOL UTILIZED 1 EACH MISC PO PRN (12:53)
[2024-07-26] MEDS: LEVOFLOXACIN 750MG-D5W PMX 750 MG in DEXTROSE/WATER 1 150ML.BAG IVPB STA (13:36)
--- NOTE | 2024-07-26 17:16 | P.CNPUL ---
History of Present Illness Consult date: 07/26/24 Requesting physician: Josef Guerrero Reason for consult: dyspnea, cough, hypoxemia, pneumonia, abnormal CXR/CT Chief complaint: Shortness of breath. History of present illness: Pulmonary consultation dated July 26, 2024. 79-year-old male who is seen in the emergency department, on July 26, at 10:00 in the morning, for shortness of breath, and cough. The patient has a history of multiple medical problems, but apparently for the last couple of days, or maybe a bit longer, and has been having fever, and cough, and shortness of breath. The patient apparently sees my partner, for COPD. For COPD, he is typically on Breo, DuoNebs, and albuterol inhaler. He is seen today in the [facility] department, room 28. He is on 2 L of oxygen. He does use home oxygen, as needed. Other medical history includes atrial fibrillation, COPD, CVA, GERD, hypertension, pneumonia, and rheumatoid arthritis. Laboratory data includes a white count 8.6, hemoglobin 14.2, hematocrit 42.2, and a platelet count of 90,000. Sodium 134, potassium 4.4, chlorides 94, CO2 38, BUN 40, creatinine 0.79. Albumin is 3. Viral screen was positive for coronavirus. Shows patchy retrocardiac left basilar opacity, which could be consistent with either atelectasis, or pneumonia. He also has an asymmetric elevation of the right hemidiaphragm. Review of Systems REVIEW OF SYSTEMS: CONSTITUTIONAL: [Negative.] NEUROLOGIC: [ Negative.] HEENT: [ Negative.] CARDIAC: [Negative.] PULMONARY: Cough, shortness of breath. GI: [Negative.] : [Negative.] RHEUMATOLOGIC: [ Negative.] IMMUNOLOGIC: [ Negative.] ENDOCRINE: [Negative. 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 sensitive rt elbow. History of Any Multi-Drug Resistant Organisms: None Reported Past Surgical History: Appendectomy, Hernia Repair, Orthopedic Surgery, Tonsillectomy Additional Past Surgical History / Comment(s): Field implant in throat ( vocal cords), peg tube, EGDs, colonoscopy, R inguinal hernia, L foot bunionectom y, hemorrhoidectomy, L ring trigger finger release, nasal reconstruction, cataracts/lens implants. no surgery on hip fx PEG TUBE left leg shorter than right after fracture healed Past Anesthesia/Blood Transfusion Reactions: No Reported Reaction Additional Past Anesthesia/Blood Transfusion Reaction / Comment(s): somewhat PARALYZED VOCAL CHORDS. Pt has received blood in past without reaction. sometimes slow to wake up. Past Psychological History: No Psychological Hx Reported Smoking Status: Former smoker Past Alcohol Use History: None Reported Past Drug Use History: None Reported - Past Family History Sister(s) Additional Family Medical History / Comment(s): passed colon CA Brother(s) Additional Family Medical History / Comment(s): sarcidosis Mother Family Medical History: COPD Additional Family Medical History / Comment(s): emphysema Son(s) Family Medical History: Hypertension Additional Family Medical History / Comment(s): lymphoma, sarcoidosis Father Family Medical History: No Reported History Additional Family Medical History / Comment(s): Father was healthy Medications and Allergies Home Medications Medication Instructions Recorded Confirmed Type Fluticasone/Vilanterol [Breo 1 puff INHALATION RT-DAILY 10/24/18 07/26/24 History Ellipta 200-25 Mcg Inhaler] Metoprolol Tartrate [Lopressor] 12.5 mg PO DAILY 12/26/18 07/26/24 History Gabapentin 600 mg PO HS PRN 04/16/22 07/26/24 History Ramelteon 8 mg PO HS PRN 04/16/22 07/26/24 History guaiFENesin [Mucinex] 600 mg PO BID PRN 04/19/22 07/26/24 History Pantoprazole [Protonix] 40 mg PO BID #60 tab 04/23/22 07/26/24 Rx Albuterol Sulfate [Albuterol 2 puff PO RT-Q4H PRN 04/04/24 07/26/24 History Sulfate Hfa] Ipratropium/Albuter 20-100Mcg 1 puff INHALATION RT-QID PRN 07/13/24 07/26/24 History [Combivent Respimat 20-100Mcg Inhaler] Loratadine [Claritin] 10 mg PO DAILY PRN 07/13/24 07/26/24 History Allergies Allergy/AdvReac Type Severity Reaction Status Date / Time azithromycin Allergy Swelling Verified 07/26/24 15:12 Penicillins Allergy Itching/David Verified 07/26/24 15:12 h piperacillin [From Zosyn] Allergy Itching Verified 07/26/24 15:12 Sulfa (Sulfonamide Allergy Rash/Hives Verified 07/26/24 15:12 Antibiotics) tazobactam [From Zosyn] Allergy Itching Verified 07/26/24 15:12 Physical Exam Osteopathic Statement: *. No significant issues noted on an osteopathic structural exam other than those noted in the History and Physical/Consult. Vitals: Vital Signs Temp Pulse Resp BP Pulse Ox 07/26/24 15:09 86 20 103/61 96 07/26/24 13:40 99.1 F 66 18 104/69 98 07/26/24 12:39 67 20 88 L 07/26/24 10:41 24 07/26/24 10:18 99.3 F 78 20 100/69 92 L Intake and Output 07/26/24 07/26/24 07/26/24 06:59 14:59 22:59 Other: Weight 73.028 kg No acute distress, oriented 3. No perry respiratory distress. The patient is on 2 L of oxygen. HEENT examination is grossly unremarkable. Mucous membranes are moist. No oral lesions. Neck supple. Full range of motion. No adenopathy thyromegaly or neck vein distention. Cardiovascular examination reveals regular rhythm rate. S1-S2 normal. No S3 or S4. No discernible murmur noted. Heart sounds are distant. Lungs reveal mild to moderate scattered rhonchi and wheezes. No crackles. Breath sounds are equal. Abdomen soft bowel sounds are heard. No masses or tenderness. Extremities are intact. No cyanosis clubbing or edema. Skin is without rash or lesion. Neurologic examination is brief but nonfocal. Results - Laboratory Findings CBC and BMP: 07/26/24 11:16 07/26/24 11:16 Abnormal lab findings: Abnormal Labs 07/26/24 07/26/24 07/26/24 11:16 11:16 11:16 RBC 4.08 L MCV 103.4 H Plt Count 90 L Lymphocytes # 0.6 L Sodium 134 L Chloride 94 L Carbon Dioxide 38 H BUN 40 H ALT 55 H Total Protein 5.9 L Albumin 3.0 L SARS-CoV-2 (PCR) Detected A - Diagnostic Findings Chest x-ray: image reviewed Assessment and Plan Assessment: Acute exacerbation of COPD, possibly triggered by coronavirus infection, with possible coronavirus associated pneumonia. History of atrial fibrillation. History of CVA. History of gastroesophageal reflux disease. History of hypertension. History of rheumatoid arthritis. History of bilateral vocal cord paralysis. History of Phillips's esophagus. BPH. Multiple myeloma. Multiple other medical problems and comorbidities. Plan: Plan dated July 26, 2024. The patient was placed on levofloxacin. We will add back an albuterol inhaler, and Symbicort inhaler. Will also add some Decadron to his regimen. Additional recommendations and suggestions are forthcoming. Prognosis is guarded. The chest x-ray reveals a possible left lower lobe infiltrate. A procalcitonin level will also be ordered. Time with Patient: Greater than 30
[2024-07-26] MEDS: SYMBICORT 160-4.5 MCG INHALER INHALATION SCH (20:38)
[2024-07-26] MEDS: ALBUTEROL HFA INHALER INHALATION SCH (20:38)
[2024-07-27] MEDS ORDERED: ALBUTEROL HFA INHALER INHALATION PRN (02:24)
[2024-07-27] MEDS: METOPROLOL TARTRATE 25 MG TAB PO SCH (02:50)
[2024-07-27] MEDS ORDERED: TEMAZEPAM 15 MG CAP PO PRN (02:50)
[2024-07-27] MEDS: SODIUM CHLORIDE 0.9% 1,000 ML IV SCH (06:40)
[2024-07-27] MEDS: PANTOPRAZOLE 40 MG TABLET PO SCH (07:58)
[2024-07-27] MEDS: dexAMETHasone 2 MG TAB PO SCH (07:59)
[2024-07-27] MEDS: LEVOFLOXACIN 750 MG TAB PO SCH (08:35)
[2024-07-27] MEDS: TIOTROPIUM 2.5 MCG INHALER INHALATION PRN (08:49)
[2024-07-27] MEDS ORDERED: LORATADINE 10 MG TAB PO PRN (09:00)
--- NOTE | 2024-07-27 10:23 | XR ---
EXAMINATION TYPE: XR chest 1V portable DATE OF EXAM: 07/27/2024 9:14 AM COMPARISON: 07/26/2024 CLINICAL INDICATION: Male, 79 years old with history of pneumonia, TECHNIQUE: XR chest 1V portable view(s) obtained. FINDINGS: The heart size is normal. The pulmonary vasculature is normal. Retrocardiac infiltrate may be present. There is elevation of the right diaphragm IMPRESSION: 1. Stable appearance upright portable chest [facility], Workstation: [facility], 07/27/2024 10:20 AM
--- NOTE | 2024-07-27 13:23 | P.PN ---
Subjective Progress Note Date: 07/27/24 79-year-old male who is seen in the emergency department, on July 26, at 10:00 in the morning, for shortness of breath, and cough. The patient has a history of multiple medical problems, but apparently for the last couple of days, or maybe a bit longer, and has been having fever, and cough, and shortness of breath. The patient apparently sees my partner, for COPD. For COPD, he is typically on Breo, DuoNebs, and albuterol inhaler. He is seen today in the emergency department, room 28. He is on 2 L of oxygen. He does use home oxygen, as needed. Other medical history includes atrial fibrillation, COPD, CVA, GERD, hypertension, pneumonia, and rheumatoid arthritis. Laboratory data includes a white count 8.6, hemoglobin 14.2, hematocrit 42.2, and a platelet count of 90,000. Sodium 134, potassium 4.4, chlorides 94, CO2 38, BUN 40, creatinine 0.79. Albumin is 3. Viral screen was positive for coronavirus. Shows patchy retrocardiac left basilar opacity, which could be consistent with e ither atelectasis, or pneumonia. He also has an asymmetric elevation of the right hemidiaphragm. The patient is seen today July 27, 2024 in follow-up on the regular medical floor. He is currently sitting up in bed. Awake and alert in no acute distress. He is maintaining O2 saturations in the 90s on 4 L/min per nasal cannula. He has normal saline at 100 mL/h. He remains on Symbicort, albuterol, Decadron. Procalcitonin negative at 0.10. He does have a COVID infection. Objective - Vital Signs Vital signs: Vital Signs Temp 98.3 F 07/27/24 07:18 Pulse 136 H 07/27/24 07:18 Resp 19 07/27/24 07:18 BP 101/68 07/27/24 07:18 Pulse Ox 93 L 07/27/24 07:18 FiO2 Intake & Output 07/26/24 07/27/24 07/27/24 18:59 06:59 18:59 Output Total 575 Balance -575 Weight 73.028 kg 72 kg Output: Urine 575 Other: Voiding Method Indwelling Catheter Indwelling Catheter - Exam GENERAL EXAM: Alert, thin, cachectic 79-year-old male, on 4 L nasal cannula, comfortable in no apparent distress. HEAD: Normocephalic. EYES: Normal reaction of pupils, equal size. NOSE: Clear with pink turbinates. THROAT: No erythema or exudates. NECK: No masses, no JVD. CHEST: No chest wall deformity. LUNGS: Equal air entry with scattered rhonchi. CVS: S1 and S2 normal with no audible murmur, regular rhythm. ABDOMEN: No hepatosplenomegaly, normal bowel sounds, no guarding or rigidity. SPINE: No scoliosis or deformity SKIN: No rashes CENTRAL NERVOUS SYSTEM: Essential tremors, no focal deficits, tone is normal in all 4 extremities. EXTREMITIES: There is no peripheral edema. No clubbing, no cyanosis. Peripheral pulses are intact. - Labs CBC & Chem 7: 07/26/24 11:16 07/26/24 11:16 Labs: Microbiology - Last 24 Hours (Table) 07/26/24 14:50 Gram Stain - Preliminary Sputum Sputum Culture - Preliminary Assessment and Plan Assessment: Acute exacerbation of COPD, possibly triggered by coronavirus infection, with possible coronavirus associated pneumonia. History of atrial fibrillation. History of CVA. History of gastroesophageal reflux disease. History of hypertension. History of rheumatoid arthritis. History of bilateral vocal cord paralysis. History of Phillips's esophagus. BPH. Multiple myeloma. Multiple other medical problems and comorbidities. Plan: The patient was seen and evaluated Labs and medications reviewed Procalcitonin negative Levaquin discontinued Titrate down the FiO2 as tolerated Continue Symbicort, albuterol Continue Decadron Lovenox for DVT prophylaxis We will continue to follow I have personally seen and examined the patient, performed the documentation and the assessment and plan as written. Number of minutes spent on the visit: 10 Dictation was produced using [employer] dictation software. Please excuse any grammatical, word or spelling errors. This patient was seen in coordination with the pulmonary/critical care physician, Dr. Mendez. He did spend greater than 50% of the time evaluating, examining and developing the plan of care. He agrees to the above HPI, physical exam, assessment and plan of care as dictated by the nurse practitioner.
[2024-07-27 14:22] LABS: Glucose,Whole Blood 166 mg/dL (70-110)
--- NOTE | 2024-07-27 14:52 | P.HPIM ---
History of Present Illness H&P Date: 07/27/24 History of present illness: 79-year-old male patient with past medical history significant for atrial fibrillation, history of multiple myeloma, history of vocal cord paralysis, PEG tube in place, history of CVA, hypertension, rheumatoid arthritis, history of COPD who presented to ED for shortness of breath and productive cough. Patient reported that for the last couple of days he was having fever, productive cough, shortness of breath. Patient follows pulmonary as outpatient, on Breo DuoNebs a nd albuterol inhalers. Patient reported that he uses oxygen as needed at home. In the ED patient required supplemental oxygen, was afebrile, heart rate 85, respiratory rate 18, blood pressure 114/84, saturating 95% on 4 L. WBCs 8.6, hemoglobin 14.2, platelet 90. CO2 38. BUN 40, creatinine 0.79. Liver profile was unremarkable except albumin 3.0, ALT 55. COVID PCR was positive. Chest x-ray retrocardiac left basilar opacity, ongoing asymmetric elevation of right hemidiaphragm. Assessment and plan: Acute hypoxic respiratory failure Acute COPD exacerbation COVID-19 pneumonia: Vocal cord paralysis: Right hemidiaphragm elevation: A-fib with RVR: PEG tube in place Multiple myeloma History of CVA Hypertension Phillips's esophagus BPH thrombocytopenia Plan: Continue inhalers/bronchodilator protocol, Decadron, Droplet plus isolation Pulmonary consult Cardiology consulted, was in A-fib with RVR, now heart rate is controlled, continue metoprolol, hold off anticoagulation due to thrombocytopenia Nutrition consult for tube feeds DVT prophylaxis Subcutaneous Lovenox Monitor vital signs and labs Labs and medication were reviewed. Continue same treatment. Further recommendations as per clinical course of the patient PHYSICAL EXAMINATION: GENERAL: The patient is A&O x3, NAD HEENT: EOMI, Sclerae anicteric, Moist Mucous membranes Neck: Supple, Non tender, No JVD PULMONARY: Equal breath souds B/L, No wheezing, + crackles. CARDIOVASCULAR: S1, S2 present. No murmurs, rubs, or gallops. ABDOMEN: Soft, nontender, nondistended, normoactive bowel sounds. No guarding or rebound tenderness. MUSCULOSKELETAL: No edema, No cyanosis. No clubbing. Normal ROM. Intact peripheral pulses. NEUROLOGICAL: CN 2-12 grossly intact. No FND REVIEW OF SYSTEMS: CONSTITUTIONAL: No fever, no malaise, no fatigue. HEENT: No recent visual problems or hearing problems. Denied any sore throat. CARDIOVASCULAR: No chest pain, orthopnea, PND, no palpitations, no syncope. PULMONARY: Complaining of shortness of breath, productive cough. GASTROINTESTINAL: No diarrhea, no nausea, no vomiting, no abdominal pain. NEUROLOGICAL: No headaches, no weakness, no numbness. HEMATOLOGICAL: Denies any bleeding or petechiae. GENITOURINARY: Denies any burning micturition, frequency, or urgency. MUSCULOSKELETAL/RHEUMATOLOGICAL: Denies any joint pain, swelling, or any muscle pain. ENDOCRINE: Denies any polyuria or polydipsia. The rest of the 14-point review of systems is negative. Dictation was produced using [employer] dictation software. please excuse any grammatical, word or spelling errors. 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 sensitive rt elbow. History of Any Multi-Drug Resistant Organisms: None Reported Past Surgical History: Appendectomy, Hernia Repair, Orthopedic Surgery, Tonsillectomy Additional Past Surgical History / Comment(s): Field implant in throat ( vocal cords), peg tube, EGDs, colonoscopy, R inguinal hernia, L foot bunionectomy, hemorrhoidectomy, L ring trigger finger release, nasal re construction, cataracts/lens implants. no surgery on hip fx PEG TUBE left leg shorter than right after fracture healed Past Anesthesia/Blood Transfusion Reactions: No Reported Reaction Additional Past Anesthesia/Blood Transfusion Reaction / Comment(s): somewhat PARALYZED VOCAL CHORDS. Pt has received blood in past without reaction. sometimes slow to wake up. Past Psychological History: No Psychological Hx Reported Additional Psychological History / Comment(s): . Smoking Status: Former smoker Past Alcohol Use History: None Reported Additional Past Alcohol Use History / Comment(s): Patient started smoking 1961 and quit in 1971-smoked 1 ppd. past use of alcohol denies use anymore. Past Drug Use History: None Reported - Past Family History Sister(s) Additional Family Medical History / Comment(s): passed colon CA Brother(s) Additional Family Medical History / Comment(s): sarcidosis Mother Family Medical History: COPD Additional Family Medical History / Comment(s): emphysema Son(s) Family Medical History: Hypertension Additional Family Medical History / Comment(s): lymphoma, sarcoidosis Father Family Medical History: No Reported History Additional Family Medical History / Comment(s): Father was healthy Medications and Allergies Home Medications Medication Instructions Recorded Confirmed Type Fluticasone/Vilanterol [Breo 1 puff INHALATION RT-DAILY 10/24/18 07/26/24 History Ellipta 200-25 Mcg Inhaler] Metoprolol Tartrate [Lopressor] 12.5 mg PO DAILY 12/26/18 07/26/24 History Gabapentin 600 mg PO HS PRN 04/16/22 07/26/24 History Ramelteon 8 mg PO HS PRN 04/16/22 07/26/24 History guaiFENesin [Mucinex] 600 mg PO BID PRN 04/19/22 07/26/24 History Pantoprazole [Protonix] 40 mg PO BID #60 tab 04/23/22 07/26/24 Rx Albuterol Sulfate [Albuterol 2 puff PO RT-Q4H PRN 04/04/24 07/26/24 History Sulfate Hfa] Ipratropium/Albuter 20-100Mcg 1 puff INHALATION RT-QID PRN 07/13/24 07/26/24 History [Combivent Respimat 20-100Mcg Inhaler] Loratadine [Claritin] 10 mg PO DAILY PRN 07/13/24 07/26/24 History Allergies Allergy/AdvReac Type Severity Reaction Status Date / Time azithromycin Allergy Swelling Verified 07/26/24 15:12 Penicillins Allergy Itching/David Verified 07/26/24 15:12 h piperacillin [From Zosyn] Allergy Itching Verified 07/26/24 15:12 Sulfa (Sulfonamide Allergy Rash/Hives Verified 07/26/24 15:12 Antibiotics) tazobactam [From Zosyn] Allergy Itching Verified 07/26/24 15:12 Physical Exam Vitals: Vital Signs Temp Pulse Pulse Resp BP BP Pulse Ox 07/27/24 07:18 98.3 F 136 H 19 101/68 93 L 07/27/24 06:19 138 H 107/81 07/27/24 01:55 100.2 F H 143 H 20 113/66 93 L 07/27/24 01:26 98.6 F 138 H 18 111/70 90 L 07/26/24 22:10 99.2 F 92 18 131/78 96 07/26/24 21:49 85 18 114/84 95 07/26/24 18:53 98.9 F 76 20 134/84 96 07/26/24 15:09 86 20 103/61 96 Intake and Output 07/26/24 07/27/24 07/27/24 22:59 06:59 14:59 Output Total 575 Balance -575 Output: Urine 575 Other: Voiding Method Indwelling Catheter Indwelling Catheter Weight 72 kg Results CBC & Chem 7: 07/26/24 11:16 07/26/24 11:16 Labs: Abnormal Lab Results - Last 24 Hours (Table) 07/27/24 Range/Units 14:21 POC Glucose (mg/dL) 166 H (70-110) mg/dL Microbiology - Last 24 Hours (Table) 07/26/24 14:50 Gram Stain - Preliminary Sputum Sputum Culture - Preliminary Thrombosis Risk Factor Assmnt - Choose All That Apply Any of the Below Risk Factors Present?: No Other Risk Factors: No Thrombosis Risk Factor Assessment Level: Very Low Risk
[2024-07-27] MEDS: ENOXAPARIN 40 MG/0.4 ML SYRINGE SQ SCH (16:08)
--- NOTE | 2024-07-27 16:31 | P.CRDCN ---
History of Present Illness Consult date: 07/27/24 History of present illness: HISTORY OF PRESENTING ILLNESS: 79-year-old with PMH of A-fib, history of multiple myeloma, history of vocal cord paralysis, PEG tube in place, history of CVA, hypertension, rheumatoid arthritis, COPD and other multiple comorbidities. He presented to the hospital because of increased worsening shortness of breath increased cough. On admiss ion he was noticed to be COVID-positive. Admission EKG showed sinus rhythm however repeat showed A-fib RVR. Admission Cardiac Labs: Hb 14.2, MCV 103, BUN 40, creatinine 0.7 Admission testing: Admission EKG shows sinus rhythm, heart rate 81 bpm, repeat EKG showed A-fib RVR heart rate 134 bpm CXR shows mild interstitial markings with no significant pulmonary consolidation or congestion. REVIEW OF SYSTEMS: 14 point review of system is negative except what is mentioned above in HPI. PHYSICAL EXAMINATION: Neck: Brisk carotid upstroke, no jugular venous distention. Lungs: Clear to auscultation. Heart: Irregularly irregular S1-S2, mild systolic murmur Abdomen: Soft nontender, positive bowel sounds. Extremities: No edema, intact distal pulses. Neuro: no focal deficits. Detailed neuro exam was not performed. ASSESSMENT: # COVID-pneumonia # COPD exacerbation # Paroxysmal atrial fibrillation # Thrombocytopenia platelets 90 # Multiple myeloma # Prior CVA # Chronic dysphagia # Phillips's esophagus PLAN: # Continue metoprolol 25 mg twice daily # Patient does have thrombocytopenia which appears to be somewhat chronic. His hemoglobin is stable with no signs of active bleeding. Because of prior CVA, I will start him on anticoagulation however I will choose low-dose 2.5 mg twice daily # Continue to monitor telemetry # Obtain echo Abelino Quigley MD, [facility] [place] Thank you for allowing [facility] to participate in this patient's care. Feel free to reach out in case of any followup questions. 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 sensitive rt elbow. History of Any Multi-Drug Resistant Organisms: None Reported Past Surgical History: Appendectomy, Hernia Repair, Orthopedic Surgery, Tonsillectomy Additional Past Surgical History / Comment(s): Field implant in throat ( vocal cords), peg tube, EGDs, colonoscopy, R inguinal hernia, L foot bunionectomy, hemorrhoidectomy, L ring trigger finger release, nasal reconstruction, cataracts/lens implants. no surgery on hip fx PEG TUBE left leg shorter than right after fracture healed Past Anesthesia/Blood Transfusion Reactions: No Reported Reaction Additional Past Anesthesia/Blood Transfusion Reaction / Comment(s): somewhat PARALYZED VOCAL CHORDS. Pt has received blood in past without reaction. ani etimes slow to wake up. Past Psychological History: No Psychological Hx Reported Additional Psychological History / Comment(s): . Smoking Status: Former smoker Past Alcohol Use History: None Reported Additional Past Alcohol Use History / Comment(s): Patient started smoking 1961 and quit in 1971-smoked 1 ppd. past use of alcohol denies use anymore. Past Drug Use History: None Reported - Past Family History Sister(s) Additional Family Medical History / Comment(s): passed colon CA Brother(s) Additional Family Medical History / Comment(s): sarcidosis Mother Family Medical History: COPD Additional Family Medical History / Comment(s): emphysema Son(s) Family Medical History: Hypertension Additional Family Medical History / Comment(s): lymphoma, sarcoidosis Father Family Medical History: No Reported History Additional Family Medical History / Comment(s): Father was healthy Medications and Allergies Home Medications Medication Instructions Recorded Confirmed Type Fluticasone/Vilanterol [Breo 1 puff INHALATION RT-DAILY 10/24/18 07/26/24 History Ellipta 200-25 Mcg Inhaler] Metoprolol Tartrate [Lopressor] 12.5 mg PO DAILY 12/26/18 07/26/24 History Gabapentin 600 mg PO HS PRN 04/16/22 07/26/24 History Ramelteon 8 mg PO HS PRN 04/16/22 07/26/24 History guaiFENesin [Mucinex] 600 mg PO BID PRN 04/19/22 07/26/24 History Pantoprazole [Protonix] 40 mg PO BID #60 tab 04/23/22 07/26/24 Rx Albuterol Sulfate [Albuterol 2 puff PO RT-Q4H PRN 04/04/24 07/26/24 History Sulfate Hfa] Ipratropium/Albuter 20-100Mcg 1 puff INHALATION RT-QID PRN 07/13/24 07/26/24 History [Combivent Respimat 20-100Mcg Inhaler] Loratadine [Claritin] 10 mg PO DAILY PRN 07/13/24 07/26/24 History Allergies Allergy/AdvReac Type Severity Reaction Status Date / Time azithromycin Allergy Swelling Verified 07/26/24 15:12 Penicillins Allergy Itching/David Verified 07/26/24 15:12 h piperacillin [From Zosyn] Allergy Itching Verified 07/26/24 15:12 Sulfa (Sulfonamide Allergy Rash/Hives Verified 07/26/24 15:12 Antibiotics) tazobactam [From Zosyn] Allergy Itching Verified 07/26/24 15:12 Physical Exam Vitals: Vital Signs Temp Pulse Pulse Resp BP BP Pulse Ox 07/27/24 13:59 98.4 F 80 19 101/66 95 07/27/24 07:18 98.3 F 136 H 19 101/68 93 L 07/27/24 06:19 138 H 107/81 07/27/24 01:55 100.2 F H 143 H 20 113/66 93 L 07/27/24 01:26 98.6 F 138 H 18 111/70 90 L 07/26/24 22:10 99.2 F 92 18 131/78 96 07/26/24 21:49 85 18 114/84 95 07/26/24 18:53 98.9 F 76 20 134/84 96 Intake and Output 07/27/24 07/27/24 07/27/24 06:59 14:59 22:59 Output Total 575 Balance -575 Output: Urine 575 Other: Voiding Method Indwelling Catheter Indwelling Catheter Weight 72 kg Results 07/26/24 11:16 12/31/24 11:16 Current Medications Generic Name Dose Route Start Last Admin Trade Name Freq PRN Reason Stop Dose Admin Albuterol Sulfate 2 puff 07/26/24 20:00 07/27/24 15:58 Albuterol Hfa Inhaler INHALATION 2 puff RT-QID MARILYN Administration Albuterol Sulfate 2 puff 07/27/24 02:24 Albuterol Hfa Inhaler INHALATION RT-Q4H PRN Shortness Of Breath Budesonide/Formoterol Fumarate 2 puff 07/26/24 20:00 07/27/24 08:49 Symbicort 160-4.5 Mcg Inhaler INHALATION 2 puff RT-BID MARILYN Administration Dexamethasone 6 mg 07/27/24 09:00 07/27/24 07:59 Dexamethasone 2 Mg Tab PO 6 mg DAILY MARILYN Administration Gabapentin 600 mg 07/27/24 02:24 Gabapentin 300 Mg Cap PO HS PRN RESTLESS LEGS Guaifenesin 600 mg 07/27/24 09:00 Guaifenesin 600 Mg Tablet.Er PO BID PRN COUGHING Sodium Chloride 1,000 mls @ 100 mls/hr 07/27/24 02:30 07/27/24 12:42 Saline 0.9% IV 100 mls/hr .Q10H MARILYN Administration Loratadine 10 mg 07/27/24 09:00 Loratadine 10 Mg Tab PO DAILY PRN Allergy Symptoms Metoprolol Tartrate 25 mg 07/27/24 02:20 07/27/24 07:58 Metoprolol Tartrate 25 Mg Tab PO 25 mg BID MARILYN Administration Miscellaneous Information 1 each 07/26/24 12:53 Pneumonia Protocol Utilized 1 Each Misc PO ONCE PRN Per Protocol Pantoprazole Sodium 40 mg 07/27/24 09:00 07/27/24 07:58 Pantoprazole 40 Mg Tablet PO 40 mg BID MARILYN Administration Temazepam 15 mg 07/27/24 02:50 Temazepam 15 Mg Cap PO HS PRN Insomnia Tiotropium [place] 1 puff 07/27/24 02:24 07/27/24 08:49 Tiotropium 2.5 Mcg Inhaler INHALATION 1 puff RT-DAILY PRN Administration Shortness Of Breath Intake and Output 07/27/24 07/27/24 07/27/24 06:59 14:59 22:59 Output Total 575 Balance -575 Output: Urine 575 Other: Voiding Method Indwelling Catheter Indwelling Catheter Weight 72 kg 07/26/24 11:16 07/26/24 11:16
[2024-07-27] MEDS: APIXABAN 2.5 MG TABLET PO SCH (19:31)
[2024-07-28] MEDS: GABAPENTIN 300 MG CAP PO PRN (01:04)
[2024-07-28 09:13] LABS: Basophils # (A) 0.02 X 10*3/uL (0.00-0.10); Basophils % (A) 0.3 %; Eosinophils # (A) 0 X 10*3/uL (0.04-0.35); Eosinophils % (A) 0 %; HCT 38.8 % (39.6-50.0); HGB 12.3 g/dL (13.0-17.0); Lymphocytes % (A) 7.7 %; MCH 33.7 pg (27.0-32.0); MCHC 31.7 g/dL (32.0-37.0); MCV 106.3 FL (80.0-97.0); Mean Platelet Volume 12.2 FL (9.5-12.2); Monocytes # (A) 0.24 X 10*3/uL (0.20-1.00); Monocytes % (A) 3.7 %; NRBC Per 100 WBC 0 X 10*3/uL (0.00-0.01); Neutrophils # (A) 5.72 X 10*3/uL (1.80-7.70); Platelet Count 95 X 10*3/uL (140-440); RBC 3.65 X 10*6/uL (4.40-5.60); RDW 13.8 % (11.5-14.5)
[2024-07-28 09:23] LABS: Blood Urea Nitrogen 32.2 mg/dL (9.0-27.0); Calcium 7.8 mg/dL (8.7-10.3); Carbon Dioxide 28.8 mmol/L (21.6-31.8); Chloride 106 mmol/L (96-109); Glucose 122 mg/dL (70-110); Potassium 4.5 mmol/L (3.5-5.5); Sodium 142 mmol/L (135-145)
--- NOTE | 2024-07-28 13:21 | P.PN ---
Subjective HISTORY OF PRESENT ILLNESS: This is an 79-year-old male who was admitted to the hospital secondary to COVID. Patient was also found to have A-fib with RVR. Patient examined this afternoon at the bedside. Patient currently denies any chest pain or pressure. He denies any shortness of breath. Telemetry reveals sinus mechanism. The patient was started on Eliquis due to atrial fibrillation. The patient does not have a history of atrial fibrillation. PHYSICAL EXAM: VITAL SIGNS: Reviewed. GENERAL: Well-developed in no acute distress. NECK: Supple. No JVD or thyromegaly LUNGS: Respirations even and unlabored. Lungs essentially clear to auscultation bilaterally. HEART: Regular rate and rhythm. S1 and S2 heard. EXTREMITIES: Normal range of motion. No clubbing or cyanosis. Peripheral pulses intact. No lower extremity edema ASSESSMENT: Acute COVID-19 New onset paroxysmal atrial fibrillation, currently maintaining sinus mechanism Acute COPD exacerbation Acute hypoxic respiratory failure Thrombocytopenia History of multiple myeloma History of CVA History of Phillips's esophagus History of chronic dysphagia History of PEG tube insertion History of vocal cord paralysis PLAN: Continue anticoagulation with Eliquis. Monitor platelet count. Discontinue if platelet count drops below 50. Continue current dose of metoprolol tartrate 25 mg twice a day Continue telemetry monitoring Check TSH Obtain 2D echo to assess cardiac structure and function Further recommendations pending patient course Nurse practitioner note has been reviewed by physician. Signing provider agrees with the documented findings, assessment, and plan of care documented by SHELLFISH HARVESTER as a scribe. Objective - Vital Signs Vital signs: Vital Signs Temp 97.8 F 07/28/24 07:48 Pulse 70 07/28/24 07:48 Resp 15 07/28/24 07:48 BP 112/73 07/28/24 07:48 Pulse Ox 95 07/28/24 10:55 FiO2 Intake & Output 07/27/24 07/28/24 07/28/24 18:59 06:59 18:59 Weight 70.7 kg 70.7 kg Other: Voiding Method Indwelling Catheter Indwelling Catheter Indwelling Catheter # Bowel Movements 1 - Labs CBC & Chem 7: 07/28/24 04:31 07/28/24 04:31 Labs: Abnormal Lab Results - Last 24 Hours (Table) 07/27/24 07/28/24 07/28/24 Range/Units 14:21 04:31 04:31 RBC 3.65 L (4.40-5.60) X 10*6/uL Hgb 12.3 L (13.0-17.0) g/dL Hct 38.8 L (39.6-50.0) % MCV 106.3 H (80.0-97.0) FL MCH 33.7 H (27.0-32.0) pg MCHC 31.7 L (32.0-37.0) g/dL Plt Count 95 L (140-440) X 10*3/uL Lymphocytes # 0.50 L (0.90-5.00) X 10*3/uL Eosinophils # 0 L (0.04-0.35) X 10*3/uL BUN 32.2 H (9.0-27.0) mg/dL BUN/Creatinine Ratio 46.00 H (12.00-20.00) Ratio Glucose 122 H (70-110) mg/dL POC Glucose (mg/dL) 166 H (70-110) mg/dL Calcium 7.8 L (8.7-10.3) mg/dL Microbiology - Last 24 Hours (Table) 07/26/24 13:12 Blood Culture - Preliminary Blood 07/26/24 14:50 Gram Stain - Preliminary Sputum Sputum Culture - Preliminary
--- NOTE | 2024-07-28 13:44 | P.PN ---
Subjective Progress Note Date: 07/28/24 79-year-old male who is seen in the emergency department, on July 26, at 10:00 in the morning, for shortness of breath, and cough. The patient has a history of multiple medical problems, but apparently for the last couple of days, or maybe a bit longer, and has been having fever, and cough, and shortness of breath. The patient apparently sees my partner, for COPD. For COPD, he is typically on Breo, DuoNebs, and albuterol inhaler. He is seen today in the emergency department, room 28. He is on 2 L of oxygen. He does use home oxygen, as needed. Other medical history includes atrial fibrillation, COPD, CVA, GERD, hypertension, pneumonia, and rheumatoid arthritis. Laboratory data includes a white count 8.6, hemoglobin 14.2, hematocrit 42.2, and a platelet count of 90,000. Sodium 134, potassium 4.4, chlorides 94, CO2 38, BUN 40, creatinine 0.79. Albumin is 3. Viral screen was positive for coronavirus. Shows patchy retrocardiac left basilar opacity, which could be consistent with e ither atelectasis, or pneumonia. He also has an asymmetric elevation of the right hemidiaphragm. The patient is seen today July 27, 2024 in follow-up on the regular medical floor. He is currently sitting up in bed. Awake and alert in no acute distress. He is maintaining O2 saturations in the 90s on 4 L/min per nasal cannula. He has normal saline at 100 mL/h. He remains on Symbicort, albuterol, Decadron. Procalcitonin negative at 0.10. He does have a COVID infection. The patient is seen today July 28, 2024 in follow-up on the regular medical floor. He is currently resting comfortably in bed. Awake and alert in no acute distress. Maintaining good O2 saturations in the 90s on 4 L/min per nasal cannula. He is afebrile. Hemodynamically stable. Blood and sputum cultures revealed no growth. White count 6.5. Hemoglobin 12.3. Platelets 95,000. Sodium 142. Potassium 4.5. Bicarb 29. BUN 32. Creatinine 0.7. Glucose 122. He remains on Symbicort, Spiriva and albuterol. Normal saline at 100. Anticoagulated with Eliquis. Continued on Decadron. Objective - Vital Signs Vital signs: Vital Signs Temp 97.8 F 07/28/24 07:48 Pulse 70 07/28/24 07:48 Resp 15 07/28/24 07:48 BP 112/73 07/28/24 07:48 Pulse Ox 95 07/28/24 10:55 FiO2 Intake & Output 07/27/24 07/28/24 07/28/24 18:59 06:59 18:59 Weight 70.7 kg 70.7 kg Other: Voiding Method Indwelling Catheter Indwelling Catheter Indwelling Catheter # Bowel Movements 1 - Exam GENERAL EXAM: Alert, cachectic 79-year-old male, on 4 L nasal cannula, comfortable in no apparent distress. HEAD: Normocephalic. EYES: Normal reaction of pupils, equal size. NOSE: Clear with pink turbinates. THROAT: No erythema or exudates. NECK: No masses, no JVD. CHEST: No chest wall deformity. LUNGS: Equal air entry with scattered rhonchi. CVS: S1 and S2 normal with no audible murmur, regular rhythm. ABDOMEN: No hepatosplenomegaly, normal bowel sounds, no guarding or rigidity. SPINE: No scoliosis or deformity SKIN: No rashes CENTRAL NERVOUS SYSTEM: Essential tremors, no focal deficits, tone is normal in all 4 extremities. EXTREMITIES: There is no peripheral edema. No clubbing, no cyanosis. Peripheral pulses are intact. - Labs CBC & Chem 7: 07/28/24 04:31 07/28/24 04:31 Labs: Abnormal Lab Results - Last 24 Hours (Table) 07/27/24 07/28/24 07/28/24 Range/Units 14:21 04:31 04:31 RBC 3.65 L (4.40-5.60) X 10*6/uL Hgb 12.3 L (13.0-17.0) g/dL Hct 38.8 L (39.6-50.0) % MCV 106.3 H (80.0-97.0) FL MCH 33.7 H (27.0-32.0) pg MCHC 31.7 L (32.0-37.0) g/dL Plt Count 95 L (140-440) X 10*3/uL Lymphocytes # 0.50 L (0.90-5.00) X 10*3/uL Eosinophils # 0 L (0.04-0.35) X 10*3/uL BUN 32.2 H (9.0-27.0) mg/dL BUN/Creatinine Ratio 46.00 H (12.00-20.00) Ratio Glucose 122 H (70-110) mg/dL POC Glucose (mg/dL) 166 H (70-110) mg/dL Calcium 7.8 L (8.7-10.3) mg/dL Microbiology - Last 24 Hours (Table) 07/26/24 13:12 Blood Culture - Preliminary Blood 07/26/24 14:50 Gram Stain - Preliminary Sputum Sputum Culture - Preliminary Assessment and Plan Assessment: Acute exacerbation of COPD, possibly triggered by coronavirus infection, with possible coronavirus associated pneumonia. History of atrial fibrillation. History of CVA. History of gastroesophageal reflux disease. History of hypertension. History of rheumatoid arthritis. History of bilateral vocal cord paralysis. History of Phillips's esophagus. BPH. Multiple myeloma. Multiple other medical problems and comorbidities. Plan: The patient was seen and evaluated Labs and medications reviewed Titrate down the FiO2 as tolerated Continue Symbicort, Spiriva and albuterol Continue Decadron Lovenox for DVT prophylaxis We will continue to follow I have personally seen and examined the patient, performed the documentation and the assessment and plan as written. Number of minutes spent on the visit: 10 Dictation was produced using [employer] dictation software. Please excuse any grammatical, word or spelling errors. This patient was seen in coordination with the pulmonary/critical care physician, Dr. Mendez. He did spend greater than 50% of the time evaluating, examining and developing the plan of care. He agrees to the above HPI, physical exam, assessment and plan of care as dictated by the nurse practitioner.
--- NOTE | 2024-07-28 14:33 | P.PN ---
Subjective Progress Note Date: 07/28/24 Interval History: History of present illness: 79-year-old male patient with past medical history significant for atrial fibrillation, history of multiple myeloma, history of vocal cord paralysis, PEG tube in place, history of CVA, hypertension, rheumatoid arthritis, history of COPD who presented to ED for shortness of breath and productive cough. Patient reported that for the last couple of days he was having fever, productive cough, shortness of breath. Patient follows pulmonary as outpatient, on Breo DuoNebs and albuterol inhalers. Patient reported that he uses oxygen as needed at home. In the ED patient required supplemental oxygen, was afebrile, heart rate 85, respiratory rate 18, blood pressure 114/84, saturating 95% on 4 L. WBCs 8.6, hemoglobin 14.2, platelet 90. CO2 38. BUN 40, creatinine 0.79. Liver profile was unremarkable except albumin 3.0, ALT 55. COVID PCR was positive. Chest x-ray retrocardiac left basilar opacity, ongoing asymmetric elevation of right hemidiaphragm. 07/28/24--patient was seen and examined today. Patient feeling better today. at bedside. Afebrile, heart rate 70 respiratory rate 15 blood pressure 112/73 saturating 95% on 3 to 4 L oxygen. WBC 6.5, hemoglobin 12.3, platelets 95. BMP unremarkable. Patient reported that his shortness of breath and productive cough is better as compared to yesterday. Patient was started on Eliquis 2.5 mg twice daily yesterday per cardiology, cardiology recommended to check TSH and echocardiogram. Heart rate is controlled. Pulmonary on board and following. Assessment and plan: Acute hypoxic respiratory failure Acute COPD exacerbation COVID-19 pneumonia: Vocal cord paralysis: Right hemidiaphragm elevation: A-fib with RVR: PEG tube in place Multiple myeloma History of CVA Hypertension Phillips's esophagus BPH thrombocytopenia Plan: Continue inhalers/bronchodilator protocol, Decadron, Droplet plus isolation Pulmonary consult Cardiology consulted, was in A-fib with RVR, now heart rate is controlled, continue metoprolol, started Eliquis, cardiology recommended low-dose of Eliquis 2.5 mg twice daily due to thrombocytopenia, stop Eliquis if platelet less than 50,000. Echocardiogram. Nutrition consult for tube feeds DVT prophylaxis Eliquis 2.5 mg twice daily Monitor vital signs and labs Labs and medication were reviewed. Continue same treatment. Further recommendations as per clinical course of the patient PHYSICAL EXAMINATION: GENERAL: The patient is A&O x3, NAD HEENT: EOMI, Sclerae anicteric, Moist Mucous membranes Neck: Supple, Non tender, No JVD PULMONARY: Equal breath souds B/L, No wheezing, + crackles. CARDIOVASCULAR: S1, S2 present. No murmurs, rubs, or gallops. ABDOMEN: Soft, nontender, nondistended, normoactive bowel sounds. No guarding or rebound tenderness. MUSCULOSKELETAL: No edema, No cyanosis. No clubbing. Normal ROM. Intact peripher al pulses. NEUROLOGICAL: CN 2-12 grossly intact. No FND REVIEW OF SYSTEMS: CONSTITUTIONAL: No fever, no malaise, no fatigue. HEENT: No recent visual problems or hearing problems. Denied any sore throat. CARDIOVASCULAR: No chest pain, orthopnea, PND, no palpitations, no syncope. PULMONARY: Complaining of shortness of breath, productive cough. GASTROINTESTINAL: No diarrhea, no nausea, no vomiting, no abdominal pain. NEUROLOGICAL: No headaches, no weakness, no numbness. HEMATOLOGICAL: Denies any bleeding or petechiae. GENITOURINARY: Denies any burning micturition, frequency, or urgency. MUSCULOSKELETAL/RHEUMATOLOGICAL: Denies any joint pain, swelling, or any muscle pain. ENDOCRINE: Denies any polyuria or polydipsia. The rest of the 14-point review of systems is negative. Dictation was produced using [employer] dictation software. please excuse any grammatical, word or spelling errors. Objective - Vital Signs Vital signs: Vital Signs Temp 97.8 F 07/28/24 07:48 Pulse 70 07/28/24 07:48 Resp 15 07/28/24 07:48 BP 112/73 07/28/24 07:48 Pulse Ox 95 07/28/24 10:55 FiO2 Intake & Output 07/27/24 07/28/24 07/28/24 18:59 06:59 18:59 Weight 70.7 kg 70.7 kg Other: Voiding Method Indwelling Catheter Indwelling Catheter Indwelling Catheter # Bowel Movements 1 - Labs CBC & Chem 7: 07/28/24 04:31 07/28/24 04:31 Labs: Abnormal Lab Results - Last 24 Hours (Table) 07/28/24 07/28/24 Range/Units 04:31 04:31 RBC 3.65 L (4.40-5.60) X 10*6/uL Hgb 12.3 L (13.0-17.0) g/dL Hct 38.8 L (39.6-50.0) % MCV 106.3 H (80.0-97.0) FL MCH 33.7 H (27.0-32.0) pg MCHC 31.7 L (32.0-37.0) g/dL Plt Count 95 L (140-440) X 10*3/uL Lymphocytes # 0.50 L (0.90-5.00) X 10*3/uL Eosinophils # 0 L (0.04-0.35) X 10*3/uL BUN 32.2 H (9.0-27.0) mg/dL BUN/Creatinine Ratio 46.00 H (12.00-20.00) Ratio Glucose 122 H (70-110) mg/dL Calcium 7.8 L (8.7-10.3) mg/dL Microbiology - Last 24 Hours (Table) 07/26/24 13:12 Blood Culture - Preliminary Blood 07/26/24 14:50 Gram Stain - Preliminary Sputum Sputum Culture - Preliminary
[2024-07-28] MEDS ORDERED: ZINC OXIDE PASTE (Z-GUARD) 1 APPLIC TOPICAL PRN (18:11)
--- NOTE | 2024-07-29 07:34 | CA ---
Transthoracic Echo Report Name: Kae Ferro Age: 79 Gender: M : 1945 Exam Date: 07/28/2024 13:31 Exam Location: [facility] Ht (in): 70 Wt (lb): 155 Ordering Physician: Giovanna Owens Attending/Referring Phys: [id number], Graciela [employer] Tester Vivian López RDCS Procedure CPT: Indications: LV function, COVID, afib Cardiac Hx: Technical Quality: Fair Contrast 1: Total Dose (mL): Contrast 2: Total Dose (mL): MEASUREMENTS (Male / Female) Normal Values 2D ECHO LV Diastolic Diameter PLAX 5.0 cm 4.2 - 5.9 / 3.9 - 5.3 cm LV Systolic Diameter PLAX 3.2 cm IVS Diastolic Thickness 1.1 cm 0.6 - 1.0 / 0.6 - 0.9 cm LVPW Diastolic Thickness 1.1 cm 0.6 - 1.0 / 0.6 - 0.9 cm LV Relative Wall Thickness 0.4 RV Internal Dim ED PLAX 2.8 cm LA Systolic Diameter LX 4.8 cm 3.0 - 4.0 / 2.7 - 3.8 cm LV Diastolic Volume MOD BP 88.1 cm??? 67 - 155 / 56 - 104 cm??? LV Systolic Volume MOD BP 35.0 cm??? 22 - 58 / 19 - 49 cm??? LV Ejection Fraction MOD BP 60.3 % >= 55 % LV Cardiac Index MOD BP 1711.9 cm???/min???m??? LV Diastolic Volume MOD 4C 90.1 cm??? LV Systolic Volume MOD 4C 30.6 cm??? LV Ejection Fraction MOD 4C 66.0 % LV Cardiac Index MOD 4C 1914.3 cm???/min???m??? LV Diastolic Length 4C 7.6 cm LV Systolic Length 4C 6.0 cm LV Diastolic Volume MOD 2C 81.6 cm??? LV Systolic Volume MOD 2C 37.1 cm??? LV Ejection Fraction MOD 2C 54.5 % LV Cardiac Index MOD 2C 1433.1 cm???/min???m??? LV Diastolic Length 2C 8.1 cm LV Systolic Length 2C 6.6 cm M-MODE Aortic Root Diameter MM 3.8 cm AV Cusp Separation MM 2.2 cm DOPPLER MV E' Velocity 7.9 cm/s TR Peak Velocity 297.7 cm/s TR Peak Gradient 35.4 mmHg Right Ventricular Systolic Press 45.5 mmHg FINDINGS Left Ventricle Left ventricular ejection fraction is estimated at 55-60 %. Left ventricular cavity size normal. Left ventricular wall thickness normal. Normal left ventricular wall motion. Right Ventricle Normal right ventricular size. Moderate pulmonary hypertension. Right Atrium Normal right atrial size. No right atrial thrombus or mass seen. Left Atrium Moderately increased left atrial diameter. No left atrial thrombus or mass present. Mitral Valve Structurally normal mitral valve. [id number] mitral regurgitation. Aortic Valve Trileaflet aortic valve. Thickened aortic valve without stenosis. Tricuspid Valve Structurally normal tricuspid valve. Mild tricuspid regurgitation. Pulmonic Valve Pulmonic valve not well visualized. No pulmonic regurgitation. Pericardium No pericardial effusion. Aorta Mild aortic dilatation at the level of the sinuses of valsalva 38 mm CONCLUSIONS Normal biventricular systolic function Mild to moderate mitral regurgitation Moderate pulmonary hypertension Previewed by: Dr. Govind Keita MD (Electronically Signed) Final Date: 29 July 2024 07:33
[2024-07-29 09:05] LABS: Blood Urea Nitrogen 29.1 mg/dL (9.0-27.0); Carbon Dioxide 29.2 mmol/L (21.6-31.8); Chloride 106 mmol/L (96-109); Glucose 112 mg/dL (70-110); Potassium 4.6 mmol/L (3.5-5.5); Sodium 143 mmol/L (135-145)
[2024-07-29 09:08] LABS: Basophils # (A) 0.02 X 10*3/uL (0.00-0.10); Basophils % (A) 0.3 %; Eosinophils # (A) 0 X 10*3/uL (0.04-0.35); Eosinophils % (A) 0 %; HCT 39.2 % (39.6-50.0); HGB 12.9 g/dL (13.0-17.0); Lymphocytes # (A) 0.48 X 10*3/uL (0.90-5.00); Lymphocytes % (A) 6.1 %; MCH 34.2 pg (27.0-32.0); MCHC 32.9 g/dL (32.0-37.0); Monocytes # (A) 0.22 X 10*3/uL (0.20-1.00); Monocytes % (A) 2.8 %; NRBC Per 100 WBC 0 X 10*3/uL (0.00-0.01); Neutrophils # (A) 7.07 X 10*3/uL (1.80-7.70); Neutrophils % (A) 90.3 %; Platelet Count 94 X 10*3/uL (140-440); RBC 3.77 X 10*6/uL (4.40-5.60); RDW 13.8 % (11.5-14.5); WBC 7.83 X 10*3/uL (4.50-10.00)
[2024-07-29] MEDS: LINEZOLID 600 MG TAB PO SCH (12:16)
--- NOTE | 2024-07-29 14:43 | P.PN ---
Subjective HISTORY OF PRESENT ILLNESS: This is an 79-year-old male who was admitted to the hospital secondary to COVID. Patient was also found to have A-fib with RVR. Patient examined this afternoon at the bedside. Patient currently denies any chest pain or pressure. He denies any shortness of breath. Telemetry reveals sinus mechanism. The patient was started on Eliquis due to atrial fibrillation. The patient does not have a history of atrial fibrillation. 07/29/2024 Patient examined this afternoon at the bedside. Patient denies chest pain or p ressure. He reports some mild congestion. Telemetry reveals sinus mechanism. Echocardiogram completed revealing ejection fraction 55 to 60%, mild to moderate MR, mild TR, moderate pulm hypertension PHYSICAL EXAM: VITAL SIGNS: Reviewed. GENERAL: Well-developed in no acute distress. NECK: Supple. No JVD or thyromegaly LUNGS: Respirations even and unlabored. Lungs essentially clear to auscultation bilaterally. HEART: Regular rate and rhythm. S1 and S2 heard. EXTREMITIES: Normal range of motion. No clubbing or cyanosis. Peripheral pulses intact. No lower extremity edema ASSESSMENT: Acute COVID-19 New onset paroxysmal atrial fibrillation, currently maintaining sinus mechanism Acute COPD exacerbation Acute hypoxic respiratory failure Thrombocytopenia History of multiple myeloma History of CVA History of Phillips's esophagus History of chronic dysphagia History of PEG tube insertion History of vocal cord paralysis PLAN: Continue current cardiac medications Continue oral anticoagulation with Eliquis Patient is currently stable from a cardiac standpoint Patient to follow-up postdischarge in the office with Dr. Keita We will sign off. Please reconsult if needed. Nurse practitioner note has been reviewed by physician. Signing provider agrees with the documented findings, assessment, and plan of care documented by [employer] SUPERVISOR as a scribe. Objective - Vital Signs Vital signs: Vital Signs Temp 98.0 F 07/29/24 08:00 Pulse 62 07/29/24 08:00 Resp 18 07/29/24 08:00 BP 132/76 07/29/24 08:00 Pulse Ox 94 L 07/29/24 08:00 FiO2 Intake & Output 07/28/24 07/29/24 07/29/24 18:59 06:59 18:59 Output Total 1999 Balance -1999 Weight 70.7 kg 75.5 kg Output: Urine 1999 Other: Voiding Method Indwelling Catheter Indwelling Catheter Indwelling Catheter - Labs CBC & Chem 7: 07/29/24 05:15 07/29/24 05:15 Labs: Abnormal Lab Results - Last 24 Hours (Table) 07/29/24 07/29/24 Range/Units 05:15 05:15 RBC 3.77 L (4.40-5.60) X 10*6/uL Hgb 12.9 L (13.0-17.0) g/dL Hct 39.2 L (39.6-50.0) % MCV 104.0 H (80.0-97.0) FL MCH 34.2 H (27.0-32.0) pg Plt Count 94 L (140-440) X 10*3/uL Lymphocytes # 0.48 L (0.90-5.00) X 10*3/uL Eosinophils # 0 L (0.04-0.35) X 10*3/uL BUN 29.1 H (9.0-27.0) mg/dL BUN/Creatinine Ratio 48.50 H (12.00-20.00) Ratio Glucose 112 H (70-110) mg/dL Calcium 8.0 L (8.7-10.3) mg/dL Microbiology - Last 24 Hours (Table) 07/26/24 14:50 Gram Stain - Final Sputum Sputum Culture - Final Corynebacterium striatum group Methicillin resist S. aureus 07/26/24 13:12 Blood Culture - Preliminary Blood
--- NOTE | 2024-07-29 14:44 | P.PN ---
Subjective Progress Note Date: 07/29/24 79-year-old male who is seen in the emergency department, on July 26, at 10:00 in the morning, for shortness of breath, and cough. The patient has a history of multiple medical problems, but apparently for the last couple of days, or maybe a bit longer, and has been having fever, and cough, and shortness of breath. The patient apparently sees my partner, for COPD. For COPD, he is typically on Breo, DuoNebs, and albuterol inhaler. He is seen today in the emergency department, room 28. He is on 2 L of oxygen. He does use home oxygen, as needed. Other medical history includes atrial fibrillation, COPD, CVA, GERD, hypertension, pneumonia, and rheumatoid arthritis. Laboratory data includes a white count 8.6, hemoglobin 14.2, hematocrit 42.2, and a platelet count of 90,000. Sodium 134, potassium 4.4, chlorides 94, CO2 38, BUN 40, creatinine 0.79. Albumin is 3. Viral screen was positive for coronavirus. Shows patchy retrocardiac left basilar opacity, which could be consistent with e ither atelectasis, or pneumonia. He also has an asymmetric elevation of the right hemidiaphragm. The patient is seen today July 27, 2024 in follow-up on the regular medical floor. He is currently sitting up in bed. Awake and alert in no acute distress. He is maintaining O2 saturations in the 90s on 4 L/min per nasal cannula. He has normal saline at 100 mL/h. He remains on Symbicort, albuterol, Decadron. Procalcitonin negative at 0.10. He does have a COVID infection. The patient is seen today July 28, 2024 in follow-up on the regular medical floor. He is currently resting comfortably in bed. Awake and alert in no acute distress. Maintaining good O2 saturations in the 90s on 4 L/min per nasal cannula. He is afebrile. Hemodynamically stable. Blood and sputum cultures revealed no growth. White count 6.5. Hemoglobin 12.3. Platelets 95,000. Sodium 142. Potassium 4.5. Bicarb 29. BUN 32. Creatinine 0.7. Glucose 122. He remains on Symbicort, Spiriva and albuterol. Normal saline at 100. Anticoagulated with Eliquis. Continued on Decadron. The patient is seen today July 29, 2024 in follow-up on the regular medical floor. He is currently sitting up in a chair at the bedside. Awake and alert in no acute distress. Breathing quite a bit easier today compared to yesterday. He is receiving normal saline at [facility]. His sputum culture is now positive for MRSA. Initiated on Zyvox 600 mg twice daily for 7 days. White count 7.8. Hemoglobin 12.9. Platelets 94,000. Sodium 143. Potassium 4.6. Bicarb 29. BUN 29. Creatinine 0.6. Glucose 112. He remains on Symbicort, Spiriva, albuterol, Decadron. Continued on Mucinex as needed. Objective - Vital Signs Vital signs: Vital Signs Temp 98.0 F 07/29/24 08:00 Pulse 62 07/29/24 08:00 Resp 18 07/29/24 08:00 BP 132/76 07/29/24 08:00 Pulse Ox 94 L 07/29/24 08:00 FiO2 Intake & Output 07/28/24 07/29/24 07/29/24 18:59 06:59 18:59 Output Total 1999 Balance -1999 Weight 70.7 kg 75.5 kg Output: Urine 1999 Other: Voiding Method Indwelling Catheter Indwelling Catheter Indwelling Catheter - Exam GENERAL EXAM: Alert, cachectic 79-year-old male, sitting up in a chair, on 3 L nasal cannula, in no apparent distress. HEAD: Normocephalic. EYES: Normal reaction of pupils, equal size. NOSE: Clear with pink turbinates. THROAT: No erythema or exudates. NECK: No masses, no JVD. CHEST: No chest wall deformity. LUNGS: Equal air entry with scattered rhonchi. CVS: S1 and S2 normal with no audible murmur, regular rhythm. ABDOMEN: No hepatosplenomegaly, normal bowel sounds, no guarding or rigidity. SPINE: No scoliosis or deformity SKIN: No rashes CENTRAL NERVOUS SYSTEM: Essential tremors, no focal deficits, tone is normal in all 4 extremities. EXTREMITIES: There is no peripheral edema. No clubbing, no cyanosis. Peripheral pulses are intact. - Labs CBC & Chem 7: 07/29/24 05:15 07/29/24 05:15 Labs: Abnormal Lab Results - Last 24 Hours (Table) 07/29/24 07/29/24 Range/Units 05:15 05:15 RBC 3.77 L (4.40-5.60) X 10*6/uL Hgb 12.9 L (13.0-17.0) g/dL Hct 39.2 L (39.6-50.0) % MCV 104.0 H (80.0-97.0) FL MCH 34.2 H (27.0-32.0) pg Plt Count 94 L (140-440) X 10*3/uL Lymphocytes # 0.48 L (0.90-5.00) X 10*3/uL Eosinophils # 0 L (0.04-0.35) X 10*3/uL BUN 29.1 H (9.0-27.0) mg/dL BUN/Creatinine Ratio 48.50 H (12.00-20.00) Ratio Glucose 112 H (70-110) mg/dL Calcium 8.0 L (8.7-10.3) mg/dL Microbiology - Last 24 Hours (Table) 07/26/24 14:50 Gram Stain - Final Sputum Sputum Culture - Final Corynebacterium striatum group Methicillin resist S. aureus 07/26/24 13:12 Blood Culture - Preliminary Blood Assessment and Plan Assessment: Acute exacerbation of COPD, possibly triggered by MRSA pneumonia, possible coronavirus associated pneumonia Acute COVID infection History of atrial fibrillation History of CVA History of gastroesophageal reflux disease History of hypertension History of rheumatoid arthritis History of bilateral vocal cord paralysis History of Phillips's esophagu. BPH Multiple myeloma Multiple other medical problems and comorbidities Plan: The patient was seen and evaluated Labs and medications reviewed MRSA positive sputum Initiated Zyvox 600 mg twice daily x 7 days Could be considered for discharge Complete a total of 10 days of Decadron Continue Symbicort, Spiriva and albuterol Plan is for home with his family at discharge I have personally seen and examined the patient, performed the documentation and the assessment and plan as written. Number of minutes spent on the visit: 10 Dictation was produced using [employer] dictation software. Please excuse any grammatical, word or spelling errors. This patient was seen in coordination with the pulmonary/critical care physician, Dr. Mendez. He did spend greater than 50% of the time evaluating, examining and developing the plan of care. He agrees to the above HPI, physical exam, assessment and plan of care as dictated by the nurse practitioner.
--- NOTE | 2024-07-29 15:49 | P.PN ---
Subjective Interval History: History of present illness: 79-year-old male patient with past medical history significant for atrial fibrillation, history of multiple myeloma, history of vocal cord paralysis, PEG tube in place, history of CVA, hypertension, rheumatoid arthritis, history of COPD who presented to ED for shortness of breath and productive cough. Patient reported that for the last couple of days he was having fever, productive cough, shortness of breath. Patient follows pulmonary as outpatient, on Breo DuoNebs and albuterol inhalers. Patient reported that he uses oxygen as needed at home. In the ED patient required supplemental oxygen, was afebrile, heart rate 85, respiratory rate 18, blood pressure 114/84, saturating 95% on 4 L. WBCs 8.6, hemoglobin 14.2, platelet 90. CO2 38. BUN 40, creatinine 0.79. Liver profile was unremarkable except albumin 3.0, ALT 55. COVID PCR was positive. Chest x-ray retrocardiac left basilar opacity, ongoing asymmetric elevation of right hemidiaphragm. 07/28/24--patient was seen and examined today. Patient feeling better today. at bedside. Afebrile, heart rate 70 respiratory rate 15 blood pressure 112/73 saturating 95% on 3 to 4 L oxygen. WBC 6.5, hemoglobin 12.3, platelets 95. BMP unremarkable. Patient reported that his shortness of breath and productive cough is better as compared to yesterday. Patient was started on Eliquis 2.5 mg twice daily yesterday per cardiology, cardiology recommended to check TSH and echocardiogram. Heart rate is controlled. Pulmonary on board and following. 07/29/24--patient was seen and examined today. Patient feeling better today. Continues complain of productive cough with significant sputum production. Patient elida afebrile, heart rate 67, respiratory rate 18, blood pressure 144/81, saturating 93% on 3 L. WBC 7.8, hemoglobin 12.9, platelets 94. BMP unremarkable. Patient reported blood culture growing MRSA, started on Zyvox. Assessment and plan: Acute hypoxic respiratory failure Acute COPD exacerbation COVID-19 pneumonia: MRSA pneumonia: Vocal cord paralysis: Right hemidiaphragm elevation: A-fib with RVR: PEG tube in place Multiple myeloma History of CVA Hypertension Phillips's esophagus BPH thrombocytopenia Plan: Continue inhalers/bronchodilator protocol, Decadron, Droplet plus isolation Pulmonary consulted--recommended 10 days of Decadron, 7 days of Zyvox. Zyvox started on 07/29/2024. No inhalers. Cardiology consulted, was in A-fib with RVR, now heart rate is controlled, continue metoprolol, started Eliquis, cardiology recommended low-dose of Eliquis 2.5 mg twice daily due to thrombocytopenia, stop Eliquis if platelet less than 50,000. Echocardiogram--unremarkable with normal EF, mild to moderate MR, moderate pulmonary hypertension. Nutrition consult for tube feeds Sputum culture grew MRSA--patient started on Zyvox on 07/29/2024. DVT prophylaxis Eliquis 2.5 mg twice daily Monitor vital signs and labs Labs and medication were reviewed. Continue same treatment. Further recommendations as per clinical course of the patient PHYSICAL EXAMINATION: GENERAL: The patient is A&O x3, NAD HEENT: EOMI, Sclerae anicteric, Moist Mucous membranes Neck: Supple, Non tender, No JVD PULMONARY: Equal breath souds B/L, No wheezing, + crackles. CARDIOVASCULAR: S1, S2 present. No murmurs, rubs, or gallops. ABDOMEN: Soft, nontender, nondistended, normoactive bowel sounds. No guarding or rebound tenderness. MUSCULOSKELETAL: No edema, No cyanosis. No clubbing. Normal ROM. Intact peripher al pulses. NEUROLOGICAL: CN 2-12 grossly intact. No FND REVIEW OF SYSTEMS: CONSTITUTIONAL: No fever, no malaise, no fatigue. HEENT: No recent visual problems or hearing problems. Denied any sore throat. CARDIOVASCULAR: No chest pain, orthopnea, PND, no palpitations, no syncope. PULMONARY: Complaining of shortness of breath, productive cough. GASTROINTESTINAL: No diarrhea, no nausea, no vomiting, no abdominal pain. NEUROLOGICAL: No headaches, no weakness, no numbness. HEMATOLOGICAL: Denies any bleeding or petechiae. GENITOURINARY: Denies any burning micturition, frequency, or urgency. MUSCULOSKELETAL/RHEUMATOLOGICAL: Denies any joint pain, swelling, or any muscle pain. ENDOCRINE: Denies any polyuria or polydipsia. The rest of the 14-point review of systems is negative. Dictation was produced using [employer] software. please excuse any grammatical, word or spelling errors. Objective - Vital Signs Vital signs: Vital Signs Temp 98.0 F 07/29/24 14:00 Pulse 67 07/29/24 14:00 Resp 18 07/29/24 14:00 BP 144/81 07/29/24 14:00 Pulse Ox 93 L 07/29/24 14:00 FiO2 Intake & Output 07/28/24 07/29/24 07/29/24 18:59 06:59 18:59 Output Total 1999 Balance -1999 Weight 70.7 kg 75.5 kg Output: Urine 1999 Other: Voiding Method Indwelling Catheter Indwelling Catheter Indwelling Catheter - Labs CBC & Chem 7: 07/29/24 05:15 07/29/24 05:15 Labs: Abnormal Lab Results - Last 24 Hours (Table) 07/29/24 07/29/24 Range/Units 05:15 05:15 RBC 3.77 L (4.40-5.60) X 10*6/uL Hgb 12.9 L (13.0-17.0) g/dL Hct 39.2 L (39.6-50.0) % MCV 104.0 H (80.0-97.0) FL MCH 34.2 H (27.0-32.0) pg Plt Count 94 L (140-440) X 10*3/uL Lymphocytes # 0.48 L (0.90-5.00) X 10*3/uL Eosinophils # 0 L (0.04-0.35) X 10*3/uL BUN 29.1 H (9.0-27.0) mg/dL BUN/Creatinine Ratio 48.50 H (12.00-20.00) Ratio Glucose 112 H (70-110) mg/dL Calcium 8.0 L (8.7-10.3) mg/dL Microbiology - Last 24 Hours (Table) 07/26/24 14:50 Gram Stain - Final Sputum Sputum Culture - Final Corynebacterium striatum group Methicillin resist S. aureus 07/26/24 13:12 Blood Culture - Preliminary Blood
[2024-07-30] MEDS: guaiFENesin 600 MG TABLET.ER PO PRN (01:50)
[2024-07-30 09:54] LABS: Basophils # (A) 0.01 X 10*3/uL (0.00-0.10); Basophils % (A) 0.1 %; Eosinophils # (A) 0 X 10*3/uL (0.04-0.35); Eosinophils % (A) 0 %; HCT 40.1 % (39.6-50.0); HGB 13.2 g/dL (13.0-17.0); Lymphocytes # (A) 0.57 X 10*3/uL (0.90-5.00); Lymphocytes % (A) 6.3 %; MCH 34.8 pg (27.0-32.0); MCHC 32.9 g/dL (32.0-37.0); MCV 105.8 FL (80.0-97.0); Mean Platelet Volume 12.4 FL (9.5-12.2); Monocytes # (A) 0.11 X 10*3/uL (0.20-1.00); Monocytes % (A) 1.2 %; NRBC Per 100 WBC 0 X 10*3/uL (0.00-0.01); Neutrophils # (A) 8.31 X 10*3/uL (1.80-7.70); Neutrophils % (A) 91.8 %; Platelet Count 80 X 10*3/uL (140-440); RBC 3.79 X 10*6/uL (4.40-5.60); RDW 13.6 % (11.5-14.5); WBC 9.05 X 10*3/uL (4.50-10.00)
[2024-07-30 10:06] LABS: Blood Urea Nitrogen 25.3 mg/dL (9.0-27.0); Carbon Dioxide 30.5 mmol/L (21.6-31.8); Chloride 105 mmol/L (96-109); Glucose 92 mg/dL (70-110); Potassium 4.7 mmol/L (3.5-5.5); Sodium 142 mmol/L (135-145)
--- NOTE | 2024-07-30 13:34 | P.PN ---
Subjective Progress Note Date: 07/30/24 79-year-old male who is seen in the emergency department, on July 26, at 10:00 in the morning, for shortness of breath, and cough. The patient has a history of multiple medical problems, but apparently for the last couple of days, or maybe a bit longer, and has been having fever, and cough, and shortness of breath. The patient apparently sees my partner, for COPD. For COPD, he is typically on Breo, DuoNebs, and albuterol inhaler. He is seen today in the emergency department, room 28. He is on 2 L of oxygen. He does use home oxygen, as needed. Other medical history includes atrial fibrillation, COPD, CVA, GERD, hypertension, pneumonia, and rheumatoid arthritis. Laboratory data includes a white count 8.6, hemoglobin 14.2, hematocrit 42.2, and a platelet count of 90,000. Sodium 134, potassium 4.4, chlorides 94, CO2 38, BUN 40, creatinine 0.79. Albumin is 3. Viral screen was positive for coronavirus. Shows patchy retrocardiac left basilar opacity, which could be consistent with e ither atelectasis, or pneumonia. He also has an asymmetric elevation of the right hemidiaphragm. The patient is seen today July 27, 2024 in follow-up on the regular medical floor. He is currently sitting up in bed. Awake and alert in no acute distress. He is maintaining O2 saturations in the 90s on 4 L/min per nasal cannula. He has normal saline at 100 mL/h. He remains on Symbicort, albuterol, Decadron. Procalcitonin negative at 0.10. He does have a COVID infection. The patient is seen today July 28, 2024 in follow-up on the regular medical floor. He is currently resting comfortably in bed. Awake and alert in no acute distress. Maintaining good O2 saturations in the 90s on 4 L/min per nasal cannula. He is afebrile. Hemodynamically stable. Blood and sputum cultures revealed no growth. White count 6.5. Hemoglobin 12.3. Platelets 95,000. Sodium 142. Potassium 4.5. Bicarb 29. BUN 32. Creatinine 0.7. Glucose 122. He remains on Symbicort, Spiriva and albuterol. Normal saline at 100. Anticoagulated with Eliquis. Continued on Decadron. The patient is seen today July 29, 2024 in follow-up on the regular medical floor. He is currently sitting up in a chair at the bedside. Awake and alert in no acute distress. Breathing quite a bit easier today compared to yesterday. He is receiving normal saline at [facility]. His sputum culture is now positive for MRSA. Initiated on Zyvox 600 mg twice daily for 7 days. White count 7.8. Hemoglobin 12.9. Platelets 94,000. Sodium 143. Potassium 4.6. Bicarb 29. BUN 29. Creatinine 0.6. Glucose 112. He remains on Symbicort, Spiriva, albuterol, Decadron. Continued on Mucinex as needed. The patient is seen today July 30, 2024 in follow-up on the regular medical floor. He is currently resting in bed. Awake and alert in no acute distress. He has some copious secretions. He is working well with the flutter valve. Is maintaining O2 saturation in the 90s on 3 L/min per nasal cannula. He is been afebrile. Blood pressure stable. Sputum culture positive for MRSA and corynebacterium stratum group. He has been initiated on Zyvox. White count 9.0. Hemoglobin 13.2. Platelets 80,000. Sodium 140. Potassium 4.7. Bicarb 31. BUN 25. Creatinine 0.5. Glucose 92. He remains on Symbicort, albuterol, Spiriva. Remains on Decadron. Eliquis for DVT prophylaxis. Objective - Vital Signs Vital signs: Vital Signs Temp 98.1 F 07/30/24 07:20 Pulse 52 L 07/30/24 07:20 Resp 18 07/30/24 07:20 BP 127/62 07/30/24 07:20 Pulse Ox 93 L 07/30/24 08:47 FiO2 Intake & Output 07/29/24 07/30/24 07/30/24 18:59 06:59 18:59 Output Total 1450 Balance -1450 Weight 75.5 kg Output: Urine 1450 Other: Voiding Method Indwelling Catheter Indwelling Catheter Indwelling Catheter - Exam GENERAL EXAM: Alert, cachectic 79-year-old male, resting in bed on 3 L nasal cannula, in no apparent distress. HEAD: Normocephalic. EYES: Normal reaction of pupils, equal size. NOSE: Clear with pink turbinates. THROAT: No erythema or exudates. NECK: No masses, no JVD. CHEST: No chest wall deformity. LUNGS: Equal air entry with scattered rhonchi. CVS: S1 and S2 normal with no audible murmur, regular rhythm. ABDOMEN: No hepatosplenomegaly, normal bowel sounds, no guarding or rigidity. SPINE: No scoliosis or deformity SKIN: No rashes CENTRAL NERVOUS SYSTEM: Essential tremors, no focal deficits, tone is normal in all 4 extremities. EXTREMITIES: There is no peripheral edema. No clubbing, no cyanosis. Peripheral pulses are intact. - Labs CBC & Chem 7: 07/30/24 05:46 07/30/24 05:46 Labs: Abnormal Lab Results - Last 24 Hours (Table) 07/30/24 07/30/24 Range/Units 05:46 05:46 RBC 3.79 L (4.40-5.60) X 10*6/uL MCV 105.8 H (80.0-97.0) FL MCH 34.8 H (27.0-32.0) pg Plt Count 80 L (140-440) X 10*3/uL MPV 12.4 H (9.5-12.2) FL Immature Gran # 0.05 H (0.00-0.04) X 10*3/uL Neutrophils # 8.31 H (1.80-7.70) X 10*3/uL Lymphocytes # 0.57 L (0.90-5.00) X 10*3/uL Monocytes # 0.11 L (0.20-1.00) X 10*3/uL Eosinophils # 0 L (0.04-0.35) X 10*3/uL Creatinine 0.5 L (0.6-1.5) mg/dL BUN/Creatinine Ratio 50.60 H (12.00-20.00) Ratio Calcium 8.0 L (8.7-10.3) mg/dL Microbiology - Last 24 Hours (Table) 07/26/24 13:12 Blood Culture - Preliminary Blood 07/26/24 14:50 Gram Stain - Final Sputum Sputum Culture - Final Corynebacterium striatum group Methicillin resist S. aureus Assessment and Plan Assessment: Acute exacerbation of COPD, possibly triggered by MRSA pneumonia, possible coronavirus associated pneumonia Acute COVID infection History of atrial fibrillation History of CVA History of gastroesophageal reflux disease History of hypertension History of rheumatoid arthritis History of bilateral vocal cord paralysis History of Phillips's esophagu. BPH Multiple myeloma Multiple other medical problems and comorbidities Plan: The patient was seen and evaluated Labs and medications reviewed Still with copious amounts of secretions Continue flutter valve Continue Mucinex Continue Zyvox 600 mg twice daily x 7 days Complete a total of 10 days of Decadron Continue Symbicort, Spiriva and albuterol Plan is for home with his family at discharge I have personally seen and examined the patient, performed the documentation and the assessment and plan as written. Number of minutes spent on the visit: 10 Dictation was produced using [employer] dictation software. Please excuse any gr ammatical, word or spelling errors. This patient was seen in coordination with the pulmonary/critical care physician, Dr. Mendez. He did spend greater than 50% of the time evaluating, examining and developing the plan of care. He agrees to the above HPI, physical exam, assessment and plan of care as dictated by the nurse practitioner.
--- NOTE | 2024-07-30 15:34 | P.PN ---
Subjective Progress Note Date: 07/30/24 79-year-old male patient with past medical history significant for atrial fibrillation, history of multiple myeloma, history of vocal cord paralysis, PEG tube in place, history of CVA, hypertension, rheumatoid arthritis, history of COPD who presented to ED for shortness of breath and productive cough. Patient reported that for the last couple of days he was having fever, productive cough, shortness of breath. Patient follows pulmonary as outpatient, on Breo DuoNebs and albuterol inhalers. Patient reported that he uses oxygen as needed at home. In the ED patient required supplemental oxygen, was afebrile, heart rate 85, respiratory rate 18, blood pressure 114/84, saturating 95% on 4 L. WBCs 8.6, hemoglobin 14.2, platelet 90. CO2 38. BUN 40, creatinine 0.79. Liver profile was unremarkable except albumin 3.0, ALT 55. COVID PCR was positive. Chest x-ray retrocardiac left basilar opacity, ongoing asymmetric elevation of right hemidiaphragm. 07/28/24--patient was seen and examined today. Patient feeling better today. at bedside. Afebrile, heart rate 70 respiratory rate 15 blood pressure 112/73 saturating 95% on 3 to 4 L oxygen. WBC 6.5, hemoglobin 12.3, platelets 95. BMP unremarkable. Patient reported that his shortness of breath and productive cough is better as compared to yesterday. Patient was started on Eliquis 2.5 mg twice daily yesterday per cardiology, cardiology recommended to check TSH and echocardiogram. Heart rate is controlled. Pulmonary on board and following. 07/29/24--patient was seen and examined today. Patient feeling better today. Continues complain of productive cough with significant sputum production. Patient elida afebrile, heart rate 67, respiratory rate 18, blood pressure 144/81, saturating 93% on 3 L. WBC 7.8, hemoglobin 12.9, platelets 94. BMP unremarkable. Patient reported blood culture growing MRSA, started on Zyvox. 07/30. Patient seen and examined. Complaining of shortness of breath on exertion. Currently on 3 L of oxygen REVIEW OF SYSTEMS: CONSTITUTIONAL: No fever, no malaise,. CARDIOVASCULAR: No chest pain, no palpitations, no syncope. PULMONARY: No shortness of breath, no cough, GASTROINTESTINAL: No diarrhea, no nausea, no vomiting, no abdominal pain. NEUROLOGICAL: No headaches, no weakness, PHYSICAL EXAMINATION: GENERAL: The patient is alert and oriented x3, ill looking HEENT: Pupils are round and equally reacting to light. EOMI. No scleral icterus. No conjunctival pallor. Normocephalic, atraumatic. No pharyngeal erythema. No thyromegaly. CARDIOVASCULAR: S1 and S2 present. No murmurs, rubs, or gallops. PULMONARY: Coarse breath sound bilaterally, expiratory rhonchi audible, ABDOMEN: Soft, nontender, nondistended, normoactive bowel sounds. No palpable organomegaly. PEG tube seen MUSCULOSKELETAL: No joint swelling or deformity. EXTREMITIES: No cyanosis, clubbing, or pedal edema. NEUROLOGICAL: Gross neurological examination did not reveal any focal deficits. SKIN: No rashes. Assessment and plan Acute hypoxic respiratory failure Acute COPD exacerbation COVID-19 pneumonia: MRSA pneumonia: Vocal cord paralysis: Right hemidiaphragm elevation: A-fib with RVR: PEG tube in place Multiple myeloma History of CVA Hypertension Phillips's esophagus BPH thrombocytopenia Monitor vital signs Monitor CBC Monitor CMP Aggressive bronchopulmonary hygiene Continue with supplementation Continue Decadron Continue Zyvox continue Lopressor, Eliquis Continue tube feeding Pulmonology following ID consulted Labs and medication were reviewed.. Continue same treatment. Continue with symptomatic treatment. Resume home medication. Monitor labs and vitals. DVT and GI prophylaxis. Further recommendations as per clinical course of the patient Dictation was produced using [employer] dictation software. please excuse any grammatical, word or spelling errors. Objective - Vital Signs Vital signs: Vital Signs Temp 99.1 F 07/30/24 13:57 Pulse 72 07/30/24 13:57 Resp 20 07/30/24 13:57 BP 126/69 07/30/24 13:57 Pulse Ox 91 L 07/30/24 13:57 FiO2 Intake & Output 07/29/24 07/30/24 07/30/24 18:59 06:59 18:59 Output Total 1450 Balance -1450 Weight 75.5 kg Output: Urine 1450 Other: Voiding Method Indwelling Catheter Indwelling Catheter Indwelling Catheter - Labs CBC & Chem 7: 07/30/24 05:46 07/30/24 05:46 Labs: Abnormal Lab Results - Last 24 Hours (Table) 07/30/24 07/30/24 Range/Units 05:46 05:46 RBC 3.79 L (4.40-5.60) X 10*6/uL MCV 105.8 H (80.0-97.0) FL MCH 34.8 H (27.0-32.0) pg Plt Count 80 L (140-440) X 10*3/uL MPV 12.4 H (9.5-12.2) FL Immature Gran # 0.05 H (0.00-0.04) X 10*3/uL Neutrophils # 8.31 H (1.80-7.70) X 10*3/uL Lymphocytes # 0.57 L (0.90-5.00) X 10*3/uL Monocytes # 0.11 L (0.20-1.00) X 10*3/uL Eosinophils # 0 L (0.04-0.35) X 10*3/uL Creatinine 0.5 L (0.6-1.5) mg/dL BUN/Creatinine Ratio 50.60 H (12.00-20.00) Ratio Calcium 8.0 L (8.7-10.3) mg/dL Microbiology - Last 24 Hours (Table) 07/26/24 13:12 Blood Culture - Preliminary Blood
[2024-07-30] MEDS: guaiFENesin 600 MG TABLET.ER PO SCH (20:21)
--- NOTE | 2024-07-31 10:04 | XR ---
EXAMINATION TYPE: XR chest 1V portable DATE OF EXAM: 07/31/2024 9:54 AM COMPARISON: Chest x-ray of 4 days earlier CLINICAL INDICATION: Male, 79 years old with history of cough, TECHNIQUE: Single frontal view of the chest is obtained. FINDINGS: There are new bilateral increased opacities. The cardiac silhouette size is stable and up per limits of normal with atherosclerotic aortic knob. Suspect stable small to tiny left pleural effu rikki. The osseous structures are intact. IMPRESSION: New bilateral multifocal acute infiltrates and/or edema. [facility], , 07/31/2024 10:01 AM
[2024-07-31 12:47] LABS: Basophils % (A) 0 %; Eosinophils % (A) 0 %; HCT 44.3 % (39.0-53.0); HGB 14.1 gm/dL (13.0-17.5); Lymphocytes # (A) 0.4 k/uL (1.0-4.8); Lymphocytes % (A) 4 %; MCH 33.4 pg (25.0-35.0); MCHC 31.9 g/dL (31.0-37.0); MCV 104.8 fL (80.0-100.0); Macrocytosis Slight; Mean Platelet Volume 9.6; Monocytes # (A) 0.2 k/uL (0-1.0); Monocytes % (A) 2 %; Neutrophils # (A) 8.3 k/uL (1.3-7.7); Neutrophils % (A) 92 %; RBC 4.23 m/uL (4.30-5.90)
--- NOTE | 2024-07-31 12:51 | P.PN ---
Subjective Progress Note Date: 07/31/24 79-year-old male who is seen in the emergency department, on July 26, at 10:00 in the morning, for shortness of breath, and cough. The patient has a history of multiple medical problems, but apparently for the last couple of days, or maybe a bit longer, and has been having fever, and cough, and shortness of breath. The patient apparently sees my partner, for COPD. For COPD, he is typically on Breo, DuoNebs, and albuterol inhaler. He is seen today in the emergency department, room 28. He is on 2 L of oxygen. He does use home oxygen, as needed. Other medical history includes atrial fibrillation, COPD, CVA, GERD, hypertension, pneumonia, and rheumatoid arthritis. Laboratory data includes a white count 8.6, hemoglobin 14.2, hematocrit 42.2, and a platelet count of 90,000. Sodium 134, potassium 4.4, chlorides 94, CO2 38, BUN 40, creatinine 0.79. Albumin is 3. Viral screen was positive for coronavirus. Shows patchy retrocardiac left basilar opacity, which could be consistent with e ither atelectasis, or pneumonia. He also has an asymmetric elevation of the right hemidiaphragm. The patient is seen today July 27, 2024 in follow-up on the regular medical floor. He is currently sitting up in bed. Awake and alert in no acute distress. He is maintaining O2 saturations in the 90s on 4 L/min per nasal cannula. He has normal saline at 100 mL/h. He remains on Symbicort, albuterol, Decadron. Procalcitonin negative at 0.10. He does have a COVID infection. The patient is seen today July 28, 2024 in follow-up on the regular medical floor. He is currently resting comfortably in bed. Awake and alert in no acute distress. Maintaining good O2 saturations in the 90s on 4 L/min per nasal cannula. He is afebrile. Hemodynamically stable. Blood and sputum cultures revealed no growth. White count 6.5. Hemoglobin 12.3. Platelets 95,000. Sodium 142. Potassium 4.5. Bicarb 29. BUN 32. Creatinine 0.7. Glucose 122. He remains on Symbicort, Spiriva and albuterol. Normal saline at 100. Anticoagulated with Eliquis. Continued on Decadron. The patient is seen today July 29, 2024 in follow-up on the regular medical floor. He is currently sitting up in a chair at the bedside. Awake and alert in no acute distress. Breathing quite a bit easier today compared to yesterday. He is receiving normal saline at [facility]. His sputum culture is now positive for MRSA. Initiated on Zyvox 600 mg twice daily for 7 days. White count 7.8. Hemoglobin 12.9. Platelets 94,000. Sodium 143. Potassium 4.6. Bicarb 29. BUN 29. Creatinine 0.6. Glucose 112. He remains on Symbicort, Spiriva, albuterol, Decadron. Continued on Mucinex as needed. The patient is seen today July 30, 2024 in follow-up on the regular medical floor. He is currently resting in bed. Awake and alert in no acute distress. He has some copious secretions. He is working well with the flutter valve. Is maintaining O2 saturation in the 90s on 3 L/min per nasal cannula. He is been afebrile. Blood pressure stable. Sputum culture positive for MRSA and corynebacterium stratum group. He has been initiated on Zyvox. White count 9.0. Hemoglobin 13.2. Platelets 80,000. Sodium 140. Potassium 4.7. Bicarb 31. BUN 25. Creatinine 0.5. Glucose 92. He remains on Symbicort, albuterol, Spiriva. Remains on Decadron. Eliquis for DVT prophylaxis. The patient is seen today July 31, 2024 in follow-up on the regular medical floor. He is awake and alert in mild respiratory distress. His oxygen requirements have gone up he is currently on Airvo high flow oxygen at 60 L and 80% FiO2. X-ray reveals new bilateral multifocal acute infiltrates. He remains on albuterol, Symbicort, Spiriva. Remains on Decadron. Remains on Zyvox. Remains on Eliquis. Objective - Vital Signs Vital signs: Vital Signs Temp 98.2 F 07/31/24 08:06 Pulse 58 L 07/31/24 08:06 Resp 20 07/31/24 08:06 BP 151/81 07/31/24 08:06 Pulse Ox 91 L 07/31/24 12:19 FiO2 80 07/31/24 12:19 Intake & Output 07/30/24 07/31/24 07/31/24 18:59 06:59 18:59 Output Total 700 520 Balance -700 -520 Weight 73 kg Output: Urine 700 520 Other: Voiding Method Indwelling Catheter Indwelling Catheter # Bowel Movements 1 - Exam GENERAL EXAM: Alert, cachectic 79-year-old male, resting in bed, on AirVo high flow oxygen at 60 L and 80% FiO2 a, in no apparent distress. HEAD: Normocephalic. EYES: Normal reaction of pupils, equal size. NOSE: Clear with pink turbinates. THROAT: No erythema or exudates. NECK: No masses, no JVD. CHEST: No chest wall deformity. LUNGS: Equal air entry with bilateral scattered rhonchi. CVS: S1 and S2 normal with no audible murmur, regular rhythm. ABDOMEN: No hepatosplenomegaly, normal bowel sounds, no guarding or rigidity. SPINE: No scoliosis or deformity SKIN: No rashes CENTRAL NERVOUS SYSTEM: Essential tremors, no focal deficits, tone is normal in all 4 extremities. EXTREMITIES: There is no peripheral edema. No clubbing, no cyanosis. Peripheral pulses are intact. - Labs CBC & Chem 7: 07/30/24 05:46 07/30/24 05:46 Assessment and Plan Assessment: Acute exacerbation of COPD, possibly triggered by MRSA pneumonia, possible coronavirus associated pneumonia possible aspiration. Requiring Airvo high flow oxygen at 60 L and 80% FiO2 today July 31, 2024. Chest x-ray reveals new bilateral patchy opacities. Acute COVID infection History of atrial fibrillation History of CVA History of gastroesophageal reflux disease History of hypertension History of rheumatoid arthritis History of bilateral vocal cord paralysis History of Phillips's esophagu. BPH Multiple myeloma Multiple other medical problems and comorbidities Plan: The patient was seen and evaluated Chest x-ray, labs and medications reviewed Now requiring Airvo high flow oxygen Discontinue Decadron, initiate Solu-Medrol Continue Zyvox 600 mg twice daily x 7 days Continue Symbicort, Spiriva and albuterol Jevity tube feedings for nutritional support Aspiration precautions Prognosis is guarded DNR/DNI CODE STATUS I have personally seen and examined the patient, performed the documentation and the assessment and plan as written. Number of minutes spent on the visit: 10 Dictation was produced using [employer] dictation software. Please excuse any grammatical, word or spelling errors. This patient was seen in coordination with the pulmonary/critical care physician, Dr. Mendez. He did spend greater than 50% of the time evaluating, examining and developing the plan of care. He agrees to the above HPI, physical exam, assessment and plan of care as dictated by the nurse practitioner.
[2024-07-31 12:59] LABS: ALT 45 U/L (4-49); AST 42 U/L (17-59); African American GFR (CKD) >90 (>60 ml/min/1.73 sqM); Albumin 2.3 g/dL (3.5-5.0); Albumin/Globulin Ratio 0.8; Alkaline Phosphatase 105 U/L (38-126); Anion Gap 2 mmol/L; Blood Urea Nitrogen 30 mg/dL (9-20); Calcium 8.3 mg/dL (8.4-10.2); Carbon Dioxide 34 mmol/L (22-30); Chloride 102 mmol/L (98-107); Globulin 2.9 g/dL; Glucose 95 mg/dL (74-99); Non-African American GFR(CKD) >90 (>60 ml/min/1.73 sqM); Potassium 4.6 mmol/L (3.5-5.1); Sodium 138 mmol/L (137-145); Total Bilirubin 0.8 mg/dL (0.2-1.3); Total Protein 5.2 g/dL (6.3-8.2)
[2024-07-31 13:07] LABS: NT-Pro-B-Type Natriuretic Pept 2560 pg/mL
--- NOTE | 2024-07-31 13:16 | P.PN ---
Subjective Progress Note Date: 07/31/24 79-year-old male patient with past medical history significant for atrial fibrillation, history of multiple myeloma, history of vocal cord paralysis, PEG tube in place, history of CVA, hypertension, rheumatoid arthritis, history of COPD who presented to ED for shortness of breath and productive cough. Patient reported that for the last couple of days he was having fever, productive cough, shortness of breath. Patient follows pulmonary as outpatient, on Breo DuoNebs and albuterol inhalers. Patient reported that he uses oxygen as needed at home. In the ED patient required supplemental oxygen, was afebrile, heart rate 85, respiratory rate 18, blood pressure 114/84, saturating 95% on 4 L. WBCs 8.6, hemoglobin 14.2, platelet 90. CO2 38. BUN 40, creatinine 0.79. Liver profile was unremarkable except albumin 3.0, ALT 55. COVID PCR was positive. Chest x-ray retrocardiac left basilar opacity, ongoing asymmetric elevation of right hemidiaphragm. 07/28/24--patient was seen and examined today. Patient feeling better today. at bedside. Afebrile, heart rate 70 respiratory rate 15 blood pressure 112/73 saturating 95% on 3 to 4 L oxygen. WBC 6.5, hemoglobin 12.3, platelets 95. BMP unremarkable. Patient reported that his shortness of breath and productive cough is better as compared to yesterday. Patient was started on Eliquis 2.5 mg twice daily yesterday per cardiology, cardiology recommended to check TSH and echocardiogram. Heart rate is controlled. Pulmonary on board and following. 07/29/24--patient was seen and examined today. Patient feeling better today. Continues complain of productive cough with significant sputum production. Patient elida afebrile, heart rate 67, respiratory rate 18, blood pressure 144/81, saturating 93% on 3 L. WBC 7.8, hemoglobin 12.9, platelets 94. BMP unremarkable. Patient reported blood culture growing MRSA, started on Zyvox. 07/30. Patient seen and examined. Complaining of shortness of breath on exertion. Currently on 3 L of oxygen 07/31. Patient seen examined. Patient went into respiratory distress this morning, was requiring 15 L of high flow nasal cannula. Ordered stat chest x- ray, proBNP, troponin, patient be transferred to stepdown REVIEW OF SYSTEMS: CONSTITUTIONAL: No fever, no malaise,. CARDIOVASCULAR: No chest pain, no palpitations, no syncope. PULMONARY: No shortness of breath, no cough, GASTROINTESTINAL: No diarrhea, no nausea, no vomiting, no abdominal pain. NEUROLOGICAL: No headaches, no weakness, PHYSICAL EXAMINATION: GENERAL: The patient is alert and oriented x3, ill looking HEENT: Pupils are round and equally reacting to light. EOMI. No scleral icterus. No conjunctival pallor. Normocephalic, atraumatic. No pharyngeal erythema. No thyromegaly. CARDIOVASCULAR: S1 and S2 present. No murmurs, rubs, or gallops. PULMONARY: Coarse breath sound bilaterally, expiratory rhonchi audible, ABDOMEN: Soft, nontender, nondistended, normoactive bowel sounds. No palpable organomegaly. PEG tube seen MUSCULOSKELETAL: No joint swelling or deformity. EXTREMITIES: No cyanosis, clubbing, or pedal edema. NEUROLOGICAL: Gross neurological examination did not reveal any focal deficits. SKIN: No rashes. Assessment and plan Acute hypoxic respiratory failure Acute COPD exacerbation COVID-19 pneumonia: MRSA pneumonia: Vocal cord paralysis: Right hemidiaphragm elevation: A-fib with RVR: PEG tube in place Multiple myeloma History of CVA Hypertension Phillips's esophagus BPH thrombocytopenia Monitor vital signs Monitor CBC Monitor CMP Aggressive bronchopulmonary hygiene Continue with oxygen supplementation Ordered stat chest x-ray Ordered proBNP, Pro-Nimesh Continue Decadron Continue Zyvox continue Lopressor, Eliquis Continue tube feeding Pulmonology following ID following Labs and medication were reviewed.. Continue same treatment. Continue with symptomatic treatment. Resume home medication. Monitor labs and vitals. DVT and GI prophylaxis. Further recommendations as per clinical course of the patient Dictation was produced using [employer] dictation software. please excuse any grammatical, word or spelling errors. Objective - Vital Signs Vital signs: Vital Signs Temp 98.2 F 07/31/24 08:06 Pulse 58 L 07/31/24 08:06 Resp 20 07/31/24 08:06 BP 151/81 07/31/24 08:06 Pulse Ox 91 L 07/31/24 09:30 FiO2 80 07/31/24 09:30 Intake & Output 07/30/24 07/31/24 07/31/24 18:59 06:59 18:59 Output Total 700 520 Balance -700 -520 Weight 73 kg Output: Urine 700 520 Other: Voiding Method Indwelling Catheter Indwelling Catheter # Bowel Movements 1 - Labs CBC & Chem 7: 07/30/24 05:46 07/31/24 11:59 Labs: Abnormal Lab Results - Last 24 Hours (Table) 07/30/24 Range/Units 05:46 Creatinine 0.5 L (0.6-1.5) mg/dL BUN/Creatinine Ratio 50.60 H (12.00-20.00) Ratio Calcium 8.0 L (8.7-10.3) mg/dL
--- NOTE | 2024-07-31 13:26 | P.PN ---
Subjective Progress Note Date: 07/31/24 Principal diagnosis: Reason for follow-up is pneumonia Patient is a 79-year-old male with a past medical history significant for hypertension CVA TIA COPD atrial fibrillation rheumatoid arthritis presenting to the hospital for evaluation of increasing shortness of breath productive cough, patient did have a hypoxemic chest x-ray with left basilar opacity concerning for possible pneumonia sputum positive for corynebacterium and MRSA. On today's evaluation that is 07/31/2024, Patient is afebrile patient is currently on high flow nasal cannula oxygen however denies having any worsening shortness of breath or any worsening cough, the patient denies any nausea vomi ting did not have any abdominal pain and no diarrhea. Patient did have a creatinine 0.51 no CBC was done today chest x-ray from this morning new bilateral multifocal acute infiltrate and or edema Objective - Vital Signs Vital signs: Vital Signs Temp 98.2 F 07/31/24 08:06 Pulse 58 L 07/31/24 08:06 Resp 20 07/31/24 08:06 BP 151/81 07/31/24 08:06 Pulse Ox 91 L 07/31/24 12:19 FiO2 80 07/31/24 12:19 Intake & Output 07/30/24 07/31/24 07/31/24 18:59 06:59 18:59 Output Total 700 520 Balance -700 -520 Weight 73 kg Output: Urine 700 520 Other: Voiding Method Indwelling Catheter Indwelling Catheter # Bowel Movements 1 - Exam GENERAL DESCRIPTION: An elderly male lying in bed in no distress RESPIRATORY SYSTEM: Unlabored breathing , coarse breath sounds at bases HEART: S1 S2 regular rate and rhythm , ABDOMEN: Soft , no tenderness EXTREMITIES: No edema feet - Labs CBC & Chem 7: 07/30/24 05:46 07/31/24 11:59 Labs: Abnormal Lab Results - Last 24 Hours (Table) 07/31/24 Range/Units 11:59 Carbon Dioxide 34 H (22-30) mmol/L BUN 30 H (9-20) mg/dL Creatinine 0.51 L (0.66-1.25) mg/dL Calcium 8.3 L (8.4-10.2) mg/dL Total Protein 5.2 L (6.3-8.2) g/dL Albumin 2.3 L (3.5-5.0) g/dL Assessment and Plan (1) MRSA (methicillin resistant Staphylococcus aureus) infection Current Visit: Yes Status: Acute Code(s): A49.02 - METHICILLIN RESIS STAPH INFECTION, UNSP SITE SNOMED Code(s): 023344188 (2) Pneumonia Current Visit: Yes Status: Acute Code(s): J18.9 - PNEUMONIA, UNSPECIFIED ORGANISM SNOMED Code(s): 651405160 (3) Allergy to multiple antibiotics Current Visit: No Status: Acute Code(s): Z88.1 - ALLERGY STATUS TO OTHER ANTIBIOTIC AGENTS SNOMED Code(s): 543656521 Plan: 1patient presented to hospital with increasing shortness of breath cough and fever in this patient who did have history of COPD concerning for COPD exacerbation with purulent drainage bronchitis/pneumonia with sputum growing MRSA and corynebacterium 2patient with multiple antibiotic ALLERGIES that would limit the number of antibiotic safe to use 3 patient did have some worsening of his respiratory status requiring more supplemental oxygen chest x-ray showing more agitation. Question of possible fluid overload may consider small dose of diuretic and see response continue with Zyvox Dictation was produced using [employer] software. please excuse any grammatical, word or spelling errors. Time with Patient: Less than 30
--- NOTE | 2024-07-31 13:26 | P.CONS ---
History of Present Illness - Reason for Consult Consult date: 07/30/24 MRSA pneumonia Requesting physician: Og Aranda - Chief Complaint Fever shortness of breath and cough x days - History of Present Illness Patient is a 79-year-old male with a past medical history significant for hypertension CVA TIA COPD atrial fibrillation rheumatoid arthritis presenting to the hospital 4 days ago for evaluation of increasing shortness of breath productive cough and fever and this patient symptom has been going on for a few days before presentation to the hospital on arrival to the ER patient did have low-grade fever of 99.3 subsequently temperature of 100.2 F patient was not tachycardic or hypotensive he was hypoxic with O2 sats of 88% initially, requiring supplemental oxygen, patient did have a white count of 8.6 creatinine 0.7, procalcitonin 0.10 sputum positive for MRSA and corynebacterium blood culture negative patient did have a chest x-ray on admission patient had left basilar opacity could represent infiltrate or pneumonia patient has been treated with steroids he was started on oral Zyvox as of 07/29/2024 infectious was consulted today for MRSA pneumonia, patient mention he is breathing more comfortably still have a cough moderate intensity bringing up some purulent sputum denies any choking on the food no nausea no vomiting no abdominal pain no diarrhea Review of Systems Positive point and negatives has been mentioned in the HPI, complete review of systems was performed and all other systems are negative Past Medical History Past Medical History: Atrial Fibrillation, Blood Disorder, Cancer, COPD, CVA/TIA, GERD/Reflux, Hypertension, Pneumonia, Prostate Disorder, Rheumatoid Arthritis (RA), Vascular Disorder Additional Past Medical History / Comment(s): 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 sensitive rt elbow. History of Any Multi-Drug Resistant Organisms: None Reported Past Surgical History: Appendectomy, Hernia Repair, Orthopedic Surgery, Tonsillectomy Additional Past Surgical History / Comment(s): Field implant in throat ( vocal cords), peg tube, EGDs, colonoscopy, R inguinal hernia, L foot bunionectomy, hemorrhoidectomy, L ring trigger finger release, nasal reconstruction, cataracts/lens implants. no surgery on hip fx PEG TUBE left leg shorter than right after fracture healed Past Anesthesia/Blood Transfusion Reactions: No Reported Reaction Additional Past Anesthesia/Blood Transfusion Reaction / Comm: somewhat PARALYZED VOCAL CHORDS. Pt has received blood in past without reaction. sometimes slow to wake up. Past Psychological History: No Psychological Hx Reported Additional Psychological History / Comment(s): . Smoking Status: Former smoker Past Alcohol Use History: None Reported Additional Past Alcohol Use History / Comment(s): Patient started smoking 1961 and quit in 1971-smoked 1 ppd. past use of alcohol denies use anymore. Past Drug Use History: None Reported - Past Family History Sister(s) Additional Family Medical History / Comment(s): passed colon CA Brother(s) Additional Family Medical History / Comment(s): sarcidosis Mother Family Medical History: COPD Additional Family Medical History / Comment(s): emphysema Son(s) Family Medical History: Hypertension Additional Family Medical History / Comment(s): lymphoma, sarcoidosis Father Family Medical History: No Reported History Additional Family Medical History / Comment(s): Father was healthy Medications and Allergies Home Medications Medication Instructions Recorded Confirmed Type Fluticasone/Vilanterol [Breo 1 puff INHALATION RT-DAILY 10/24/18 07/26/24 History Ellipta 200-25 Mcg Inhaler] Metoprolol Tartrate [Lopressor] 12.5 mg PO DAILY 12/26/18 07/26/24 History Gabapentin 600 mg PO HS PRN 04/16/22 07/26/24 History Ramelteon 8 mg PO HS PRN 04/16/22 07/26/24 History guaiFENesin [Mucinex] 600 mg PO BID PRN 04/19/22 07/26/24 History Pantoprazole [Protonix] 40 mg PO BID #60 tab 04/23/22 07/26/24 Rx Albuterol Sulfate [Albuterol 2 puff PO RT-Q4H PRN 04/04/24 07/26/24 History Sulfate Hfa] Ipratropium/Albuter 20-100Mcg 1 puff INHALATION RT-QID PRN 07/13/24 07/26/24 History [Combivent Respimat 20-100Mcg Inhaler] Loratadine [Claritin] 10 mg PO DAILY PRN 07/13/24 07/26/24 History Allergies Allergy/AdvReac Type Severity Reaction Status Date / Time azithromycin Allergy Swelling Verified 07/26/24 15:12 Penicillins Allergy Itching/David Verified 07/26/24 15:12 h piperacillin [From Zosyn] Allergy Itching Verified 07/26/24 15:12 Sulfa (Sulfonamide Allergy Rash/Hives Verified 07/26/24 15:12 Antibiotics) tazobactam [From Zosyn] Allergy Itching Verified 07/26/24 15:12 Physical Exam Vitals: Vital Signs Temp Pulse Pulse Resp BP Pulse Ox 07/30/24 08:47 93 L 07/30/24 07:20 98.1 F 52 L 18 127/62 92 L 07/30/24 00:34 98.3 F 58 L 18 139/74 98 07/29/24 19:00 97.9 F 58 L 18 122/53 92 L 07/29/24 14:00 98.0 F 67 18 144/81 93 L Intake and Output 07/29/24 07/30/24 07/30/24 22:59 06:59 14:59 Output Total 1450 Balance -1450 Output: Urine 1450 Other: Voiding Method Indwelling Catheter Indwelling Catheter Weight 75.5 kg GENERAL DESCRIPTION: Elderly male up in bed, no distress. No tachypnea or accessory muscle of respiration use. HEENT: Shows Pallor , no scleral icterus. Oral mucous membrane is dry. NECK: Trachea central, no thyromegaly. LUNGS: Unlabored breathing. Coarse breath sounds bilaterally HEART: S1, S2, regular rate and rhythm. No loud murmur ABDOMEN: Soft, no tenderness EXTREMITIES: No edema of feet. SKIN: No rash, no masses palpable. NEUROLOGICAL: The patient is awake, alert, oriented x3, mood and affect normal. Results CBC & Chem 7: 07/30/24 05:46 07/31/24 11:59 Labs: Abnormal Lab Results - Last 24 Hours (Table) 07/30/24 07/30/24 Range/Units 05:46 05:46 RBC 3.79 L (4.40-5.60) X 10*6/uL MCV 105.8 H (80.0-97.0) FL MCH 34.8 H (27.0-32.0) pg Plt Count 80 L (140-440) X 10*3/uL MPV 12.4 H (9.5-12.2) FL Immature Gran # 0.05 H (0.00-0.04) X 10*3/uL Neutrophils # 8.31 H (1.80-7.70) X 10*3/uL Lymphocytes # 0.57 L (0.90-5.00) X 10*3/uL Monocytes # 0.11 L (0.20-1.00) X 10*3/uL Eosinophils # 0 L (0.04-0.35) X 10*3/uL Creatinine 0.5 L (0.6-1.5) mg/dL BUN/Creatinine Ratio 50.60 H (12.00-20.00) Ratio Calcium 8.0 L (8.7-10.3) mg/dL Microbiology - Last 24 Hours (Table) 07/26/24 13:12 Blood Culture - Preliminary Blood 07/26/24 14:50 Gram Stain - Final Sputum Sputum Culture - Final Corynebacterium striatum group Methicillin resist S. aureus Assessment and Plan (1) MRSA (methicillin resistant Staphylococcus aureus) infection Current Visit: Yes Status: Acute Code(s): A49.02 - METHICILLIN RESIS STAPH INFECTION, UNSP SITE SNOMED Code(s): 913569361 (2) Pneumonia Current Visit: Yes Status: Acute Code(s): J18.9 - PNEUMONIA, UNSPECIFIED ORGANISM SNOMED Code(s): 204294587 (3) Allergy to multiple antibiotics Current Visit: No Status: Acute Code(s): Z88.1 - ALLERGY STATUS TO OTHER ANTIBIOTIC AGENTS SNOMED Code(s): 531926055 Plan: 1patient presented to hospital with increasing shortness of breath cough and fever in this patient who did have history of COPD concerning for COPD exacerbation with purulent drainage bronchitis/pneumonia with sputum growing MRSA and corynebacterium 2patient with multiple antibiotic ALLERGIES that would limit the number of antibiotic safe to use 3keeping in mind patient mention Improvement simple to continue with Zyvox 600 mg p.o. every 12 hours and monitor clinical course closely We will follow on clinical condition and cultures to further adjust medication if needed Thank you for this consultation we will follow the patient along with you Dictation was produced using [employer] dictation software. please excuse any grammatical, word or spelling errors. Time with Patient: Greater than 30
[2024-07-31 13:36] LABS: Platelet Count 93 k/uL (150-450)
[2024-07-31] MEDS: methylPREDNISolone SOD SUCCI 125 MG/2 ML VIAL IV SCH (14:58)
[2024-07-31] MEDS: LOPERAMIDE 2 MG CAP PO PRN (22:00)
[2024-08-01 07:16] LABS: Basophils % (A) 0 %; Eosinophils % (A) 0 %; HCT 40.6 % (39.0-53.0); HGB 13.2 gm/dL (13.0-17.5); Lymphocytes # (A) 0.4 k/uL (1.0-4.8); Lymphocytes % (A) 5 %; MCH 34.1 pg (25.0-35.0); MCHC 32.4 g/dL (31.0-37.0); MCV 105.1 fL (80.0-100.0); Macrocytosis Slight; Mean Platelet Volume 9.4; Monocytes # (A) 0.1 k/uL (0-1.0); Monocytes % (A) 2 %; Neutrophils # (A) 6.8 k/uL (1.3-7.7); Neutrophils % (A) 92 %; Platelet Count 117 k/uL (150-450); RBC 3.86 m/uL (4.30-5.90); RDW 12.9 % (11.5-15.5); WBC 7.4 k/uL (3.8-10.6)
[2024-08-01 07:38] LABS: ALT 43 U/L (4-49); AST 37 U/L (17-59); African American GFR (CKD) >90 (>60 ml/min/1.73 sqM); Albumin 2.2 g/dL (3.5-5.0); Alkaline Phosphatase 112 U/L (38-126); Anion Gap 1 mmol/L; Blood Urea Nitrogen 30 mg/dL (9-20); Calcium 8.3 mg/dL (8.4-10.2); Carbon Dioxide 38 mmol/L (22-30); Chloride 98 mmol/L (98-107); Glucose 102 mg/dL (74-99); Non-African American GFR(CKD) >90 (>60 ml/min/1.73 sqM); Potassium 4.7 mmol/L (3.5-5.1); Sodium 137 mmol/L (137-145); Total Bilirubin 0.7 mg/dL (0.2-1.3)
[2024-08-01] MEDS: DEXTROSE 5% IN WATER 100 ML with AMIODARONE 150 MG IV ONE (12:23)
[2024-08-01] MEDS: AMIODARONE 360 MG in DEXTROSE 5% IN WATER 200 ML IV ONE (12:24)
--- NOTE | 2024-08-01 13:01 | XR ---
EXAMINATION TYPE: XR chest 1V DATE OF EXAM: 08/01/2024 COMPARISON: 07/31/2024 CLINICAL INDICATION: Male, 79 years old with history of pneumonia; TECHNIQUE: Single frontal view of the chest is obtained. FINDINGS: Asymmetric elevation right hemidiaphragm redemonstrated. Patchy and confluent bilateral opacities red emonstrated. Right heart margin obscured by adjacent pleural parenchymal opacities. IMPRESSION: Similar patchy pulmonary edema versus multifocal pneumonia. Ongoing asymmetric elevation right hemidiaphragm. [facility], , 08/01/2024 12:58 PM
--- NOTE | 2024-08-01 13:37 | P.PN ---
Subjective 79-year-old male patient with past medical history significant for atrial fibrillation, history of multiple myeloma, history of vocal cord paralysis, PEG tube in place, history of CVA, hypertension, rheumatoid arthritis, history of COPD who presented to ED for shortness of breath and productive cough. Patient reported that for the last couple of days he was having fever, productive cough, shortness of breath. Patient follows pulmonary as outpatient, on Breo DuoNebs and albuterol inhalers. Patient reported that he uses oxygen as needed at home. In the ED patient required supplemental oxygen, was afebrile, heart rate 85, respiratory rate 18, blood pressure 114/84, saturating 95% on 4 L. WBCs 8.6, hemoglobin 14.2, platelet 90. CO2 38. BUN 40, creatinine 0.79. Liver profile was unremarkable except albumin 3.0, ALT 55. COVID PCR was positive. Chest x-ray retrocardiac left basilar opacity, ongoing asymmetric elevation of right hemidiaphragm. 07/28/24--patient was seen and examined today. Patient feeling better today. at bedside. Afebrile, heart rate 70 respiratory rate 15 blood pressure 112/73 saturating 95% on 3 to 4 L oxygen. WBC 6.5, hemoglobin 12.3, platelets 95. BMP unremarkable. Patient reported that his shortness of breath and productive cough is better as compared to yesterday. Patient was started on Eliquis 2.5 mg twice daily yesterday per cardiology, cardiology recommended to check TSH and echocardiogram. Heart rate is controlled. Pulmonary on board and following. 07/29/24--patient was seen and examined today. Patient feeling better today. Continues complain of productive cough with significant sputum production. Patient elida afebrile, heart rate 67, respiratory rate 18, blood pressure 144/81, saturating 93% on 3 L. WBC 7.8, hemoglobin 12.9, platelets 94. BMP unremarkable. Patient reported blood culture growing MRSA, started on Zyvox. 07/30. Patient seen and examined. Complaining of shortness of breath on exertion. Currently on 3 L of oxygen 07/31. Patient seen examined. Patient went into respiratory distress this morning, was requiring 15 L of high flow nasal cannula. Ordered stat chest x- ray, proBNP, troponin, patient be transferred to stepdown 08/01/2024 Patient is still little bit tachypneic and dyspneic He has scattered wheezing Still on Airvo 60 L/min at 80% PEG tube is in place Cardiology already consulted after they signed off because he developed another A-fib and RVR today Objective - Vital Signs Vital signs: Vital Signs Temp 96.9 F L 08/01/24 08:00 Pulse 126 H 08/01/24 08:00 Resp 20 08/01/24 08:00 BP 114/78 08/01/24 08:00 Pulse Ox 91 L 08/01/24 08:00 FiO2 80 08/01/24 10:35 Intake & Output 07/31/24 08/01/24 08/01/24 18:59 06:59 18:59 Intake Total 100 Output Total 375 775 Balance -375 -675 Weight 73.5 kg Intake: IV 10 Invasive Line 2 10 Other 90 Output: Urine 375 775 Other: Voiding Method Indwelling Catheter Indwelling Catheter Indwelling Catheter # Bowel Movements 2 - Exam GENERAL: The patient is alert and oriented x3, not in any acute distress. Well developed, well nourished. HEENT: Pupils are round and equally reacting to light. EOMI. No scleral icterus. No conjunctival pallor. Normocephalic, atraumatic. No pharyngeal erythema. No thyromegaly. CARDIOVASCULAR: S1 and S2 present. No murmurs, rubs, or gallops. -PULMONARY: Chest is clear to auscultation, bilateral scattered wheezing , no crackles. ABDOMEN: Soft, nontender, nondistended, normoactive bowel sounds. No palpable organomegaly. MUSCULOSKELETAL: No joint swelling or deformity. EXTREMITIES: No cyanosis, clubbing, or pedal edema. NEUROLOGICAL: Gross neurological examination did not reveal any focal deficits. SKIN: No rashes. no petechiae. - Labs CBC & Chem 7: 08/01/24 06:26 08/01/24 06:26 Labs: Abnormal Lab Results - Last 24 Hours (Table) 07/31/24 07/31/24 08/01/24 Range/Units 11:59 11:59 06:26 RBC 4.23 L 3.86 L (4.30-5.90) m/uL MCV 104.8 H 105.1 H (80.0-100.0) fL Plt Count 93 L 117 L (150-450) k/uL Neutrophils # 8.3 H (1.3-7.7) k/uL Lymphocytes # 0.4 L 0.4 L (1.0-4.8) k/uL Carbon Dioxide 34 H (22-30) mmol/L BUN 30 H (9-20) mg/dL Creatinine 0.51 L (0.66-1.25) mg/dL Glucose (74-99) mg/dL Calcium 8.3 L (8.4-10.2) mg/dL Total Protein 5.2 L (6.3-8.2) g/dL Albumin 2.3 L (3.5-5.0) g/dL 08/01/24 Range/Units 06:26 RBC (4.30-5.90) m/uL MCV (80.0-100.0) fL Plt Count (150-450) k/uL Neutrophils # (1.3-7.7) k/uL Lymphocytes # (1.0-4.8) k/uL Carbon Dioxide 38 H (22-30) mmol/L BUN 30 H (9-20) mg/dL Creatinine 0.54 L (0.66-1.25) mg/dL Glucose 102 H (74-99) mg/dL Calcium 8.3 L (8.4-10.2) mg/dL Total Protein 5.0 L (6.3-8.2) g/dL Albumin 2.2 L (3.5-5.0) g/dL Microbiology - Last 24 Hours (Table) 07/31/24 09:39 Gram Stain - Preliminary Sputum Sputum Culture - Preliminary 07/26/24 13:12 Blood Culture - Final Blood Assessment and Plan Assessment: Acute hypoxic respiratory failure Acute COPD exacerbation COVID-19 pneumonia: MRSA pneumonia: Vocal cord paralysis: Right hemidiaphragm elevation: A-fib with RVR: PEG tube in place Multiple myeloma History of CVA Hypertension Phillips's esophagus BPH thrombocytopenia Plan: Monitor vital signs Monitor CBC Monitor CMP Aggressive bronchopulmonary hygiene Continue with oxygen supplementation Continue steroids, IV Solu-Medrol Continue Zyvox continue Lopressor, Eliquis Continue tube feeding Pulmonology following ID following-consult cardiology team GI and DVT prophylaxis
--- NOTE | 2024-08-01 14:53 | P.PN ---
Subjective Progress Note Date: 08/01/24 79-year-old male who is seen in the emergency department, on July 26, at 10:00 in the morning, for shortness of breath, and cough. The patient has a history of multiple medical problems, but apparently for the last couple of days, or maybe a bit longer, and has been having fever, and cough, and shortness of breath. The patient apparently sees my partner, for COPD. For COPD, he is typically on Breo, DuoNebs, and albuterol inhaler. He is seen today in the emergency department, room 28. He is on 2 L of oxygen. He does use home oxygen, as needed. Other medical history includes atrial fibrillation, COPD, CVA, GERD, hypertension, pneumonia, and rheumatoid arthritis. Laboratory data includes a white count 8.6, hemoglobin 14.2, hematocrit 42.2, and a platelet count of 90,000. Sodium 134, potassium 4.4, chlorides 94, CO2 38, BUN 40, creatinine 0.79. Albumin is 3. Viral screen was positive for coronavirus. Shows patchy retrocardiac left basilar opacity, which could be consistent with either atelectasis, or pneumonia. He also has an asymmetric elevation of the right hemidiaphragm. The patient is seen today July 27, 2024 in follow-up on the regular medical floor. He is currently sitting up in bed. Awake and alert in no acute distress. He is maintaining O2 saturations in the 90s on 4 L/min per nasal cannula. He has normal saline at 100 mL/h. He remains on Symbicort, albuterol, Decadron. Procalcitonin negative at 0.10. He does have a COVID infection. The patient is seen today July 28, 2024 in follow-up on the regular medical floor. He is currently resting comfortably in bed. Awake and alert in no acute distress. Maintaining good O2 saturations in the 90s on 4 L/min per nasal cannula. He is afebrile. Hemodynamically stable. Blood and sputum cultures revealed no growth. White count 6.5. Hemoglobin 12.3. Platelets 95,000. Sodium 142. Potassium 4.5. Bicarb 29. BUN 32. Creatinine 0.7. Glucose 122. He remains on Symbicort, Spiriva and albuterol. Normal saline at 100. Anticoagulated with Eliquis. Continued on Decadron. The patient is seen today July 29, 2024 in follow-up on the regular medical floor. He is currently sitting up in a chair at the bedside. Awake and alert in no acute distress. Breathing quite a bit easier today compared to yesterday. He is receiving normal saline at [facility]. His sputum culture is now positive for MRSA. Initiated on Zyvox 600 mg twice daily for 7 days. White count 7.8. Hemoglobin 12.9. Platelets 94,000. Sodium 143. Potassium 4.6. Bicarb 29. BUN 29. Creatinine 0.6. Glucose 112. He remains on Symbicort, Spiriva, albuterol, Decadron. Continued on Mucinex as needed. The patient is seen today July 30, 2024 in follow-up on the regular medical floor. He is currently resting in bed. Awake and alert in no acute distress. He has some copious secretions. He is working well with the flutter valve. Is maintaining O2 saturation in the 90s on 3 L/min per nasal cannula. He is been afebrile. Blood pressure stable. Sputum culture positive for MRSA and corynebacterium stratum group. He has been initiated on Zyvox. White count 9.0. Hemoglobin 13.2. Platelets 80,000. Sodium 140. Potassium 4.7. Bicarb 31. BUN 25. Creatinine 0.5. Glucose 92. He remains on Symbicort, albuterol, Spiriva. Remains on Decadron. Eliquis for DVT prophylaxis. The patient is seen today July 31, 2024 in follow-up on the regular medical floor. He is awake and alert in mild respiratory distress. His oxygen requirements have gone up he is currently on Airvo high flow oxygen at 60 L and 80% FiO2. X-ray reveals new bilateral multifocal acute infiltrates. He remains on albuterol, Symbicort, Spiriva. Remains on Decadron. Remains on Zyvox. Remains on Eliquis. On 08/01/2024, the patient is lethargic and weak again continues to have a congested cough. At the same time, the patient continues to be hypoxic and is currently on airvo with 60 l and fio2 of 80%. Following an earlier hospi talization for hemoptysis and bronchoscopy revealed corynebacterium, the patient was readmitted for worsening shortness of breath and hypoxic respiratory failure and the patient developed bilateral pneumonia. He was tested positive for COVID-19 and his symptom sputum culture showed corynebacterium and MRSA. Based on that, the patient was started on broad-spectrum antibiotics and currently he is on Zyvox and the patient is also on IV Solu-Medrol. He remains on a combination of Symbicort and tiotropium and albuterol HFA [id number]. He continues to have congested cough. Limited sputum production. Is also having issues with atrial fibrillation with rapid ventricular response and based on that the patient was started on amiodarone drip per protocol. The white cell count today is at 7.4 with a hemoglobin 15.2 and a platelet count of 117. BUN is 30 with a creatinine of 0.5 and a sodium level is 137. His procalcitonin level is at 0.07. He continues to receive enteral feeding for nutritional support. He is quite debilitated and weak. He remains on anticoagulation with Eliquis. A follow-up chest x-ray was obtained this morning and it showed asymmetric elevation of the right hemidiaphragm and patchy and confluent bilateral opacities demonstrating bilaterally consistent with pneumonia. Objective - Vital Signs Vital signs: Vital Signs Temp 96.9 F L 08/01/24 08:00 Pulse 126 H 08/01/24 08:00 Resp 20 08/01/24 08:00 BP 114/78 08/01/24 08:00 Pulse Ox 91 L 08/01/24 08:00 FiO2 80 08/01/24 10:35 Intake & Output 07/31/24 08/01/24 08/01/24 18:59 06:59 18:59 Intake Total 100 Output Total 375 775 Balance -375 -076 Weight 73.5 kg Intake: IV 10 Invasive Line 2 10 Other 90 Output: Urine 375 775 Other: Voiding Method Indwelling Catheter Indwelling Catheter Indwelling Catheter # Bowel Movements 2 - Exam GENERAL EXAM: Alert, cachectic 79-year-old male, resting in bed, on AirVo high flow oxygen at 60 L and 80% FiO2 and the patient continues to have congested cough and his breathing is mildly labored at this point. HEAD: Normocephalic. EYES: Normal reaction of pupils, equal size. NOSE: Clear with pink turbinates. THROAT: No erythema or exudates. NECK: No masses, no JVD. CHEST: No chest wall deformity. LUNGS: Equal air entry with bilateral scattered rhonchi. CVS: S1 and S2 normal with no audible murmur, irregular consistent with atrial fibrillation ABDOMEN: No hepatosplenomegaly, normal bowel sounds, no guarding or rigidity. SPINE: No scoliosis or deformity SKIN: No rashes CENTRAL NERVOUS SYSTEM: Essential tremors, no focal deficits, tone is normal in all 4 extremities. EXTREMITIES: There is no peripheral edema. No clubbing, no cyanosis. Peripheral pulses are intact. - Labs CBC & Chem 7: 08/01/24 06:26 08/01/24 06:26 Labs: Abnormal Lab Results - Last 24 Hours (Table) 07/31/24 07/31/24 08/01/24 Range/Units 11:59 11:59 06:26 RBC 4.23 L 3.86 L (4.30-5.90) m/uL MCV 104.8 H 105.1 H (80.0-100.0) fL Plt Count 93 L 117 L (150-450) k/uL Neutrophils # 8.3 H (1.3-7.7) k/uL Lymphocytes # 0.4 L 0.4 L (1.0-4.8) k/uL Carbon Dioxide 34 H (22-30) mmol/L BUN 30 H (9-20) mg/dL Creatinine 0.51 L (0.66-1.25) mg/dL Glucose (74-99) mg/dL Calcium 8.3 L (8.4-10.2) mg/dL Total Protein 5.2 L (6.3-8.2) g/dL Albumin 2.3 L (3.5-5.0) g/dL 08/01/24 Range/Units 06:26 RBC (4.30-5.90) m/uL MCV (80.0-100.0) fL Plt Count (150-450) k/uL Neutrophils # (1.3-7.7) k/uL Lymphocytes # (1.0-4.8) k/uL Carbon Dioxide 38 H (22-30) mmol/L BUN 30 H (9-20) mg/dL Creatinine 0.54 L (0.66-1.25) mg/dL Glucose 102 H (74-99) mg/dL Calcium 8.3 L (8.4-10.2) mg/dL Total Protein 5.0 L (6.3-8.2) g/dL Albumin 2.2 L (3.5-5.0) g/dL Microbiology - Last 24 Hours (Table) 07/31/24 09:39 Gram Stain - Preliminary Sputum Sputum Culture - Preliminary 07/26/24 13:12 Blood Culture - Final Blood Assessment and Plan Plan: Acute exacerbation of COPD, possibly triggered by MRSA pneumonia, possible coronavirus associated pneumonia possible aspiration. Requiring Airvo high flow oxygen at 60 L and 80% FiO2 today July 31, 2024. Chest x-ray reveals new bilateral patchy opacities and repeat chest x-ray from 08/01/2024 shows confluent patchy bilateral pulmonary infiltrates consistent with pneumonia. Acute COVID infection, currently on IV Solu-Medrol atrial fibrillation, with RVR started on amiodarone drip per protocol and the patient is on anticoagulation with Eliquis Recent bronchoscopy with cultures positive for Corynebacterium in this patient who is somewhat immunocompromise because of his multiple myeloma the patient has chronic respiratory insufficiency/COPD/right hemidiaphragmatic paralysis and vocal cord paralysis. The patient completed a course of quinolones/Levaquin on outpatient basis. 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 Currently, the patient is on a combination of Symbicort and Spiriva and albuterol rescue inhaler 4 times a day [id number]. 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 Chronic dysphagia and the patient has enteral feeding for nutritional support via PEG tube Multiple myeloma History of CVA, ambulate with the help of a cane History of fracture of the iliac crest History of recurrent pneumonias History of atrial flutter Atrial fibrillation with rapid ventricular response Previous history of history of pseudomonal tracheal bronchitis/pneumonia Plan: Continue Airvo high flow oxygen Follow-up chest x-ray from 08/01/2024 was noted and the patient's chest x-ray is consistent with bilateral pneumonia Continue Solu-Medrol Continue Zyvox 600 mg twice daily and suggest switching it to IV form ID is on the case Continue Symbicort, Spiriva and albuterol Jevity tube feedings for nutritional support Aspiration precautions Management of atrial fibrillation per cardiology. The patient was started on amiodarone drip per protocol and the patient is on anticoagulation with Eliquis. The patient is also on metoprolol 25 mg p.o. twice a day. Prognosis is guarded DNR/DNI CODE STATUS
--- NOTE | 2024-08-01 14:59 | P.PN ---
Subjective HISTORY OF PRESENT ILLNESS: This is an 79-year-old male who was admitted to the hospital secondary to COVID. Patient was also found to have A-fib with RVR. Patient examined this afternoon at the bedside. Patient currently denies any chest pain or pressure. He denies any shortness of breath. Telemetry reveals sinus mechanism. The patient was started on Eliquis due to atrial fibrillation. The patient does not have a history of atrial fibrillation. 07/29/2024 Patient examined this afternoon at the bedside. Patient denies chest pain or p ressure. He reports some mild congestion. Telemetry reveals sinus mechanism. Echocardiogram completed revealing ejection fraction 55 to 60%, mild to moderate MR, mild TR, moderate pulm hypertension 08/01/2024 Cardiology was reconsulted secondary to A-fib with RVR. Patient is currently lethargic on Airvo. Telemetry reveals atrial fibrillation with RVR. However this morning patient was noted to be in sinus mechanism and was bradycardic with a heart rate in the 30s40s. PHYSICAL EXAM: VITAL SIGNS: Reviewed. GENERAL: Well-developed in no acute distress. NECK: Supple. No JVD or thyromegaly LUNGS: Respirations even and unlabored. Lungs essentially clear to auscultation bilaterally. HEART: Tachycardic. Irregular rate and rhythm. S1 and S2 heard. EXTREMITIES: Normal range of motion. No clubbing or cyanosis. Peripheral pulses intact. No lower extremity edema ASSESSMENT: Acute COVID-19 New onset paroxysmal atrial fibrillation Possible tachybradycardia syndrome Acute COPD exacerbation Acute hypoxic respiratory failure Thrombocytopenia History of multiple myeloma History of CVA History of Phillips's esophagus History of chronic dysphagia History of PEG tube insertion History of vocal cord paralysis PLAN: Continue current cardiac medications Continue oral anticoagulation with Eliquis Begin IV amio bolus and drip per protocol Continue telemetry monitoring Patient to follow-up postdischarge in the office with Dr. Keita Nurse practitioner note has been reviewed by physician. Signing provider agrees with the documented findings, assessment, and plan of care documented by DEVELOPER ADVISOR as a scribe. Objective - Vital Signs Vital signs: Vital Signs Temp 96.9 F L 08/01/24 08:00 Pulse 126 H 08/01/24 08:00 Resp 20 08/01/24 08:00 BP 114/78 08/01/24 08:00 Pulse Ox 91 L 08/01/24 08:00 FiO2 80 08/01/24 10:35 Intake & Output 07/31/24 08/01/24 08/01/24 18:59 06:59 18:59 Intake Total 100 Output Total 375 775 Balance -375 -676 Weight 73.5 kg Intake: IV 10 Invasive Line 2 10 Other 90 Output: Urine 375 775 Other: Voiding Method Indwelling Catheter Indwelling Catheter Indwelling Catheter # Bowel Movements 2 - Labs CBC & Chem 7: 08/01/24 06:26 08/01/24 06:26 Labs: Abnormal Lab Results - Last 24 Hours (Table) 08/01/24 08/01/24 Range/Units 06:26 06:26 RBC 3.86 L (4.30-5.90) m/uL MCV 105.1 H (80.0-100.0) fL Plt Count 117 L (150-450) k/uL Lymphocytes # 0.4 L (1.0-4.8) k/uL Carbon Dioxide 38 H (22-30) mmol/L BUN 30 H (9-20) mg/dL Creatinine 0.54 L (0.66-1.25) mg/dL Glucose 102 H (74-99) mg/dL Calcium 8.3 L (8.4-10.2) mg/dL Total Protein 5.0 L (6.3-8.2) g/dL Albumin 2.2 L (3.5-5.0) g/dL Microbiology - Last 24 Hours (Table) 07/31/24 09:39 Gram Stain - Preliminary Sputum Sputum Culture - Preliminary 07/26/24 13:12 Blood Culture - Final Blood
[2024-08-01] MEDS: AMIODARONE 450 MG in DEXTROSE 5% IN WATER 250 ML IV SCH (18:37)
--- NOTE | 2024-08-02 05:15 | P.PN ---
Subjective Progress Note Date: 08/01/24 Principal diagnosis: Reason for follow-up is pneumonia Patient is a 79-year-old male with a past medical history significant for hypertension CVA TIA COPD atrial fibrillation rheumatoid arthritis presenting to the hospital for evaluation of increasing shortness of breath productive cough, patient did have a hypoxemic chest x-ray with left basilar opacity concerning for possible pneumonia sputum positive for corynebacterium and MRSA. On today's evaluation that is 08/01/2023, patient did have worsening of his respiratory status requiring BiPAP and has been transferred to the telemetry unit patient has been afebrile patient denies having any chest pain or any wor sening cough no vomiting or diarrhea has been reported. Patient white count 7.4 creatinine 0.54 chest x-ray patchy pulm edema versus multifocal pneumonia Objective - Vital Signs Vital signs: Vital Signs Temp 96.9 F L 08/01/24 08:00 Pulse 126 H 08/01/24 08:00 Resp 20 08/01/24 08:00 BP 114/78 08/01/24 08:00 Pulse Ox 91 L 08/01/24 08:00 FiO2 80 08/01/24 10:35 Intake & Output 07/31/24 08/01/24 08/01/24 18:59 06:59 18:59 Intake Total 100 Output Total 375 775 Balance -375 -675 Weight 73.5 kg Intake: IV 10 Invasive Line 2 10 Other 90 Output: Urine 375 775 Other: Voiding Method Indwelling Catheter Indwelling Catheter Indwelling Catheter # Bowel Movements 2 - Exam GENERAL DESCRIPTION: An elderly male lying in bed in no distress RESPIRATORY SYSTEM: Unlabored breathing , coarse breath sounds at bases HEART: S1 S2 regular rate and rhythm , ABDOMEN: Soft , no tenderness EXTREMITIES: No edema feet - Labs CBC & Chem 7: 08/01/24 06:26 08/01/24 06:26 Labs: Abnormal Lab Results - Last 24 Hours (Table) 08/01/24 08/01/24 Range/Units 06:26 06:26 RBC 3.86 L (4.30-5.90) m/uL MCV 105.1 H (80.0-100.0) fL Plt Count 117 L (150-450) k/uL Lymphocytes # 0.4 L (1.0-4.8) k/uL Carbon Dioxide 38 H (22-30) mmol/L BUN 30 H (9-20) mg/dL Creatinine 0.54 L (0.66-1.25) mg/dL Glucose 102 H (74-99) mg/dL Calcium 8.3 L (8.4-10.2) mg/dL Total Protein 5.0 L (6.3-8.2) g/dL Albumin 2.2 L (3.5-5.0) g/dL Microbiology - Last 24 Hours (Table) 07/31/24 09:39 Gram Stain - Preliminary Sputum Sputum Culture - Preliminary 07/26/24 13:12 Blood Culture - Final Blood Assessment and Plan (1) MRSA (methicillin resistant Staphylococcus aureus) infection Current Visit: Yes Status: Acute Code(s): A49.02 - METHICILLIN RESIS STAPH INFECTION, UNSP SITE SNOMED Code(s): 968315825 (2) Pneumonia Current Visit: Yes Status: Acute Code(s): J18.9 - PNEUMONIA, UNSPECIFIED ORGANISM SNOMED Code(s): 202574581 (3) Allergy to multiple antibiotics Current Visit: No Status: Acute Code(s): Z88.1 - ALLERGY STATUS TO OTHER ANTIBIOTIC AGENTS SNOMED Code(s): 949421235 Plan: 1patient presented to hospital with increasing shortness of breath cough and fever in this patient who did have history of COPD concerning for COPD exacerbation with purulent drainage bronchitis/pneumonia with sputum growing MRSA and corynebacterium 2patient with multiple antibiotic ALLERGIES that would limit the number of antibiotic safe to use 3patient seem to have slight worsening of his respiratory status which could be combination of fluid/CHF however concern for possible problem with absorption of the oral Zyvox as per discussion with pulm and we will switch him to IV Zyvox and see clinical response Dictation was produced using [employer] dictation software. please excuse any grammatical, word or spelling errors. Time with Patient: Less than 30
--- NOTE | 2024-08-02 07:41 | XR ---
EXAMINATION TYPE: XR chest 1V DATE OF EXAM: 08/02/2024 COMPARISON: 08/01/2024 CLINICAL INDICATION: Male, 79 years old with history of pneumonia; TECHNIQUE: Single frontal view of the chest is obtained. FINDINGS: Asymmetric elevation right hemidiaphragm persists. Heart is borderline enlarged. Patchy and confluent bilateral opacities similar to slightly worsened. IMPRESSION: Multifocal patchy and confluent opacities shows slight worsening. [facility], Workstation: [facility], 08/02/2024 7:39 AM
--- NOTE | 2024-08-02 09:23 | P.PN ---
Subjective 79-year-old male patient with past medical history significant for atrial fibrillation, history of multiple myeloma, history of vocal cord paralysis, PEG tube in place, history of CVA, hypertension, rheumatoid arthritis, history of COPD who presented to ED for shortness of breath and productive cough. Patient reported that for the last couple of days he was having fever, productive cough, shortness of breath. Patient follows pulmonary as outpatient, on Breo DuoNebs and albuterol inhalers. Patient reported that he uses oxygen as needed at home. In the ED patient required supplemental oxygen, was afebrile, heart rate 85, respiratory rate 18, blood pressure 114/84, saturating 95% on 4 L. WBCs 8.6, hemoglobin 14.2, platelet 90. CO2 38. BUN 40, creatinine 0.79. Liver profile was unremarkable except albumin 3.0, ALT 55. COVID PCR was positive. Chest x-ray retrocardiac left basilar opacity, ongoing asymmetric elevation of right hemidiaphragm. 07/28/24--patient was seen and examined today. Patient feeling better today. at bedside. Afebrile, heart rate 70 respiratory rate 15 blood pressure 112/73 saturating 95% on 3 to 4 L oxygen. WBC 6.5, hemoglobin 12.3, platelets 95. BMP unremarkable. Patient reported that his shortness of breath and productive cough is better as compared to yesterday. Patient was started on Eliquis 2.5 mg twice daily yesterday per cardiology, cardiology recommended to check TSH and echocardiogram. Heart rate is controlled. Pulmonary on board and following. 07/29/24--patient was seen and examined today. Patient feeling better today. Continues complain of productive cough with significant sputum production. Patient elida afebrile, heart rate 67, respiratory rate 18, blood pressure 144/81, saturating 93% on 3 L. WBC 7.8, hemoglobin 12.9, platelets 94. BMP unremarkable. Patient reported blood culture growing MRSA, started on Zyvox. 07/30. Patient seen and examined. Complaining of shortness of breath on exertion. Currently on 3 L of oxygen 07/31. Patient seen examined. Patient went into respiratory distress this morning, was requiring 15 L of high flow nasal cannula. Ordered stat chest x- ray, proBNP, troponin, patient be transferred to stepdown 08/01/2024 Patient is still little bit tachypneic and dyspneic He has scattered wheezing Still on Airvo 60 L/min at 80% PEG tube is in place Cardiology already consulted after they signed off because he developed another A-fib and RVR today 08/02 Patient awake alert He is requiring BiPAP today with a setting of 12/6 and FiO2 of 100% compared to 60 L/min yesterday He still has coarse crepitation on exam but no significant wheezing Repeat chest x-ray today showing bilateral confluent opacities similar to previous are slightly worse. Patient currently remains on IV Solu-Medrol, Zyvox and Eliquis together with amiodarone and metoprolol started by automobile service station attendant for new onset A-fib Objective - Vital Signs Vital signs: Vital Signs Temp 99.1 F 08/02/24 08:00 Pulse 60 08/02/24 08:00 Resp 28 H 08/02/24 08:00 BP 138/91 08/02/24 08:00 Pulse Ox 94 L 08/02/24 08:00 FiO2 100 08/02/24 08:00 Intake & Output 08/01/24 08/02/24 08/02/24 18:59 06:59 18:59 Output Total 400 500 Balance -400 -500 Weight 73.5 kg Output: Urine 400 500 Other: Voiding Method Indwelling Catheter Indwelling Catheter - Exam GENERAL: The patient is alert and oriented x3, not in any acute distress. Well developed, well nourished. HEENT: Pupils are round and equally reacting to light. EOMI. No scleral icterus. No conjunctival pallor. Normocephalic, atraumatic. No pharyngeal erythema. No thyromegaly. CARDIOVASCULAR: S1 and S2 present. No murmurs, rubs, or gallops. -PULMONARY: Chest is clear to auscultation, bilateral scattered wheezing , no crackles. ABDOMEN: Soft, nontender, nondistended, normoactive bowel sounds. No palpable organomegaly. MUSCULOSKELETAL: No joint swelling or deformity. EXTREMITIES: No cyanosis, clubbing, or pedal edema. NEUROLOGICAL: Gross neurological examination did not reveal any focal deficits. SKIN: No rashes. no petechiae. - Labs CBC & Chem 7: 08/01/24 06:26 08/01/24 06:26 Labs: Microbiology - Last 24 Hours (Table) 07/31/24 09:39 Gram Stain - Preliminary Sputum Sputum Culture - Preliminary Assessment and Plan Assessment: Acute hypoxic respiratory failure Acute COPD exacerbation COVID-19 pneumonia: MRSA pneumonia: Vocal cord paralysis: Right hemidiaphragm elevation: A-fib with RVR: PEG tube in place Multiple myeloma History of CVA Hypertension Phillips's esophagus BPH thrombocytopenia Plan: Continue with oxygen therapy and BiPAP as needed Aggressive bronchopulmonary hygiene Continue with oxygen supplementation Continue steroids, IV Solu-Medrol Continue Zyvox continue Lopressor, Eliquis Continue tube feeding Pulmonology following ID following-consult cardiology team GI and DVT prophylaxis Prognosis is guarded
[2024-08-02] MEDS: AMIODARONE 200 MG TAB PO SCH (10:15)
[2024-08-02] MEDS: LINEZOLID 600 MG in DEXTROSE/WATER 1 300ML.BAG IVPB SCH (10:16)
--- NOTE | 2024-08-02 10:48 | P.PN ---
Subjective HISTORY OF PRESENT ILLNESS: This is an 79-year-old male who was admitted to the hospital secondary to COVID. Patient was also found to have A-fib with RVR. Patient examined this afternoon at the bedside. Patient currently denies any chest pain or pressure. He denies any shortness of breath. Telemetry reveals sinus mechanism. The patient was started on Eliquis due to atrial fibrillation. The patient does not have a history of atrial fibrillation. 07/29/2024 Patient examined this afternoon at the bedside. Patient denies chest pain or p ressure. He reports some mild congestion. Telemetry reveals sinus mechanism. Echocardiogram completed revealing ejection fraction 55 to 60%, mild to moderate MR, mild TR, moderate pulm hypertension 08/01/2024 Cardiology was reconsulted secondary to A-fib with RVR. Patient is currently lethargic on Airvo. Telemetry reveals atrial fibrillation with RVR. However this morning patient was noted to be in sinus mechanism and was bradycardic with a heart rate in the 30s40s. 08/02/2024 Patient examined this morning at the bedside. Patient remains on bipap at the time of examination. Denies chest pain or pressure. Patient remains on IV amiodarone. Telemetry reveals sinus mechanism with a heart rate in the 50-60s, down into the 40s at times. Chest x-ray completed revealing multifocal patchy and confluent opacities showing slight worsening. PHYSICAL EXAM: VITAL SIGNS: Reviewed. GENERAL: Well-developed in no acute distress. NECK: Supple. No JVD or thyromegaly LUNGS: Respirations even and unlabored. Lungs essentially clear to auscultation bilaterally. HEART: Bradycardic. Regular rate and rhythm. S1 and S2 heard. EXTREMITIES: Normal range of motion. No clubbing or cyanosis. Peripheral pulses intact. No lower extremity edema ASSESSMENT: Acute COVID-19 New onset paroxysmal atrial fibrillation Possible tachybradycardia syndrome Acute COPD exacerbation Acute hypoxic respiratory failure Thrombocytopenia History of multiple myeloma History of CVA History of Phillips's esophagus History of chronic dysphagia History of PEG tube insertion History of vocal cord paralysis PLAN: Continue current cardiac medications Continue oral anticoagulation with Eliquis Discontinue metoprolol Begin oral amio 400mg BID after IV infusion is completed Continue telemetry monitoring Patient to follow-up postdischarge in the office with Dr. Keita Nurse practitioner note has been reviewed by physician. Signing provider agrees with the documented findings, assessment, and plan of care documented by CIVIL CELEBRANT as a scribe. Objective - Vital Signs Vital signs: Vital Signs Temp 99.1 F 08/02/24 08:00 Pulse 60 08/02/24 08:00 Resp 28 H 08/02/24 08:00 BP 138/91 08/02/24 08:00 Pulse Ox 94 L 08/02/24 08:00 FiO2 100 08/02/24 08:00 Intake & Output 08/01/24 08/02/24 08/02/24 18:59 06:59 18:59 Output Total 400 500 Balance -400 -500 Weight 73.5 kg Output: Urine 400 500 Other: Voiding Method Indwelling Catheter Indwelling Catheter - Labs CBC & Chem 7: 08/01/24 06:26 08/01/24 06:26 Labs: Microbiology - Last 24 Hours (Table) 07/31/24 09:39 Gram Stain - Preliminary Sputum Sputum Culture - Preliminary
[2024-08-02 13:47] VITALS: BMI 23.2
--- NOTE | 2024-08-02 15:14 | P.PN ---
Subjective Progress Note Date: 08/02/24 Principal diagnosis: Reason for follow-up is pneumonia Patient is a 79-year-old male with a past medical history significant for hypertension CVA TIA COPD atrial fibrillation rheumatoid arthritis presenting to the hospital for evaluation of increasing shortness of breath productive cough, patient did have a hypoxemic chest x-ray with left basilar opacity concerning for possible pneumonia sputum positive for corynebacterium and MRSA. On today's evaluation that is 08/02/2023, Patient is afebrile this morning patient still requiring high flow nasal cannula oxygen with a FiO2 of 90% patient denies having chest pain he did have a cough no vomiting or diarrhea has been reported. No new lab has been obtained today chest x-ray multifocal patchy opacity with slight worsening Objective - Vital Signs Vital signs: Vital Signs Temp 98.8 F 08/02/24 12:00 Pulse 64 08/02/24 12:00 Resp 22 08/02/24 12:00 BP 165/88 08/02/24 12:00 Pulse Ox 95 08/02/24 12:00 FiO2 90 08/02/24 13:29 Intake & Output 08/01/24 08/02/24 08/02/24 18:59 06:59 18:59 Output Total 400 500 Balance -400 -500 Weight 73.5 kg 73.5 kg Output: Urine 400 500 Other: Voiding Method Indwelling Catheter Indwelling Catheter # Bowel Movements 1 - Exam GENERAL DESCRIPTION: An elderly male lying in bed in no distress RESPIRATORY SYSTEM: Unlabored breathing , coarse breath sounds at bases HEART: S1 S2 regular rate and rhythm , ABDOMEN: Soft , no tenderness EXTREMITIES: No edema feet - Labs CBC & Chem 7: 08/01/24 06:26 08/01/24 06:26 Labs: Microbiology - Last 24 Hours (Table) 07/31/24 09:39 Gram Stain - Preliminary Sputum Sputum Culture - Preliminary Assessment and Plan (1) MRSA (methicillin resistant Staphylococcus aureus) infection Current Visit: Yes Status: Acute Code(s): A49.02 - METHICILLIN RESIS STAPH INFECTION, UNSP SITE SNOMED Code(s): 533567636 (2) Pneumonia Current Visit: Yes Status: Acute Code(s): J18.9 - PNEUMONIA, UNSPECIFIED ORGANISM SNOMED Code(s): 888537637 (3) Allergy to multiple antibiotics Current Visit: No Status: Acute Code(s): Z88.1 - ALLERGY STATUS TO OTHER ANTIBIOTIC AGENTS SNOMED Code(s): 986422026 Plan: 1patient presented to hospital with increasing shortness of breath cough and fever in this patient who did have history of COPD concerning for COPD exacerbation with purulent drainage bronchitis/pneumonia with sputum growing MRSA and corynebacterium 2patient with multiple antibiotic ALLERGIES that would limit the number of antibiotic safe to use 3patient did have worsening of his respite status as well as x-rays finding despite being on good gram-positive coverage we will add cefepime to cover for gram-negative discussed with the pulmonary/enterprise integration developer on the floor Dictation was produced using [employer] dictation software. please excuse any grammatical, word or spelling errors.
[2024-08-02] MEDS: CEFEPIME 2 GM in SODIUM CHLORIDE 0.9% 100 ML IVPB SCH (16:53)
--- NOTE | 2024-08-02 20:58 | P.PN ---
Subjective Progress Note Date: 08/02/24 79-year-old male who is seen in the emergency department, on July 26, at 10:00 in the morning, for shortness of breath, and cough. The patient has a history of multiple medical problems, but apparently for the last couple of days, or maybe a bit longer, and has been having fever, and cough, and shortness of breath. The patient apparently sees my partner, for COPD. For COPD, he is typically on Breo, DuoNebs, and albuterol inhaler. He is seen today in the emergency department, room 28. He is on 2 L of oxygen. He does use home oxygen, as needed. Other medical history includes atrial fibrillation, COPD, CVA, GERD, hypertension, pneumonia, and rheumatoid arthritis. Laboratory data includes a white count 8.6, hemoglobin 14.2, hematocrit 42.2, and a platelet count of 90,000. Sodium 134, potassium 4.4, chlorides 94, CO2 38, BUN 40, creatinine 0.79. Albumin is 3. Viral screen was positive for coronavirus. Shows patchy retrocardiac left basilar opacity, which could be consistent with either atelectasis, or pneumonia. He also has an asymmetric elevation of the right hemidiaphragm. The patient is seen today July 27, 2024 in follow-up on the regular medical floor. He is currently sitting up in bed. Awake and alert in no acute distress. He is maintaining O2 saturations in the 90s on 4 L/min per nasal cannula. He has normal saline at 100 mL/h. He remains on Symbicort, albuterol, Decadron. Procalcitonin negative at 0.10. He does have a COVID infection. The patient is seen today July 28, 2024 in follow-up on the regular medical floor. He is currently resting comfortably in bed. Awake and alert in no acute distress. Maintaining good O2 saturations in the 90s on 4 L/min per nasal cannula. He is afebrile. Hemodynamically stable. Blood and sputum cultures revealed no growth. White count 6.5. Hemoglobin 12.3. Platelets 95,000. Sodium 142. Potassium 4.5. Bicarb 29. BUN 32. Creatinine 0.7. Glucose 122. He remains on Symbicort, Spiriva and albuterol. Normal saline at 100. Anticoagulated with Eliquis. Continued on Decadron. The patient is seen today July 29, 2024 in follow-up on the regular medical floor. He is currently sitting up in a chair at the bedside. Awake and alert in no acute distress. Breathing quite a bit easier today compared to yesterday. He is receiving normal saline at [facility]. His sputum culture is now positive for MRSA. Initiated on Zyvox 600 mg twice daily for 7 days. White count 7.8. Hemoglobin 12.9. Platelets 94,000. Sodium 143. Potassium 4.6. Bicarb 29. BUN 29. Creatinine 0.6. Glucose 112. He remains on Symbicort, Spiriva, albuterol, Decadron. Continued on Mucinex as needed. The patient is seen today July 30, 2024 in follow-up on the regular medical floor. He is currently resting in bed. Awake and alert in no acute distress. He has some copious secretions. He is working well with the flutter valve. Is maintaining O2 saturation in the 90s on 3 L/min per nasal cannula. He is been afebrile. Blood pressure stable. Sputum culture positive for MRSA and corynebacterium stratum group. He has been initiated on Zyvox. White count 9.0. Hemoglobin 13.2. Platelets 80,000. Sodium 140. Potassium 4.7. Bicarb 31. BUN 25. Creatinine 0.5. Glucose 92. He remains on Symbicort, albuterol, Spiriva. Remains on Decadron. Eliquis for DVT prophylaxis. The patient is seen today July 31, 2024 in follow-up on the regular medical floor. He is awake and alert in mild respiratory distress. His oxygen requirements have gone up he is currently on Airvo high flow oxygen at 60 L and 80% FiO2. X-ray reveals new bilateral multifocal acute infiltrates. He remains on albuterol, Symbicort, Spiriva. Remains on Decadron. Remains on Zyvox. Remains on Eliquis. On 08/01/2024, the patient is lethargic and weak again continues to have a congested cough. At the same time, the patient continues to be hypoxic and is currently on airvo with 60 l and fio2 of 80%. Following an earlier hospi talization for hemoptysis and bronchoscopy revealed corynebacterium, the patient was readmitted for worsening shortness of breath and hypoxic respiratory failure and the patient developed bilateral pneumonia. He was tested positive for COVID-19 and his symptom sputum culture showed corynebacterium and MRSA. Based on that, the patient was started on broad-spectrum antibiotics and currently he is on Zyvox and the patient is also on IV Solu-Medrol. He remains on a combination of Symbicort and tiotropium and albuterol HFA [id number]. He continues to have congested cough. Limited sputum production. Is also having issues with atrial fibrillation with rapid ventricular response and based on that the patient was started on amiodarone drip per protocol. The white cell count today is at 7.4 with a hemoglobin 15.2 and a platelet count of 117. BUN is 30 with a creatinine of 0.5 and a sodium level is 137. His procalcitonin level is at 0.07. He continues to receive enteral feeding for nutritional support. He is quite debilitated and weak. He remains on anticoagulation with Eliquis. A follow-up chest x-ray was obtained this morning and it showed asymmetric elevation of the right hemidiaphragm and patchy and confluent bilateral opacities demonstrating bilaterally consistent with pneumonia. On 08/02/2024, the patient is on BiPAP at a pressure of 12/60 remains reported an FiO2 of 100%. Pulse ox is 97%. He is weak and lethargic, having difficulties with cough. Unable to bring up much sputum. Has difficulties with communication. Repeat chest x-ray was done today and this was compared to the chest x-ray from yesterday. The patient continues to have multifocal patchy and confluent opacities at this could be slightly worse compared to yesterday's evaluation. He remains on IV Zyvox. Discussed the case with infectious disease. Decided to add also gram-negative coverage and the patient was started on IV cefepime. He remains on IV Solu-Medrol 60 mg every 6 hours. No fever. No chest pain. Continues to receive enteral feeding for nutritional support via PEG tube. Blood work from yesterday was noted. No new blood test from today. Procalcitonin level was 0.07. Objective - Vital Signs Vital signs: Vital Signs Temp 97.9 F 08/02/24 19:47 Pulse 66 08/02/24 19:47 Resp 21 08/02/24 19:47 BP 143/83 08/02/24 19:47 Pulse Ox 97 08/02/24 19:47 FiO2 100 08/02/24 19:47 Intake & Output 08/02/24 08/02/24 08/03/24 06:59 18:59 06:59 Intake Total 400 Output Total 500 600 Balance -500 -200 Weight 73.5 kg 73.5 kg Intake: Intake, IV Titration 400 Amount Cefepime 2 gm In Sodium 100 Chloride 0.9% 100 ml @ 25 mls/hr IVPB Q8HR MARILYN Rx# :[id number] Linezolid 600 mg In 300 Dextrose/Water 1 300ml. bag @ 150 mls/hr IVPB Q12HR MARILYN Rx#:[id number] Output: Urine 500 600 Other: Voiding Method Indwelling Catheter Indwelling Catheter # Bowel Movements 1 - Exam GENERAL EXAM: Alert, cachectic 79-year-old male, the patient is currently on a BiPAP at a pressure of 12/6 cm of water with an FiO2 of 100% and the patient continues to have congested cough and his breathing is mildly labored at this point. Clinically unchanged compared to yesterday. Remains lethargic and weak. HEAD: Normocephalic. EYES: Normal reaction of pupils, equal size. NOSE: Clear with pink turbinates. THROAT: No erythema or exudates. NECK: No masses, no JVD. CHEST: No chest wall deformity. LUNGS: Equal air entry with bilateral scattered rhonchi. CVS: S1 and S2 normal with no audible murmur, irregular consistent with atrial fibrillation ABDOMEN: No hepatosplenomegaly, normal bowel sounds, no guarding or rigidity. SPINE: No scoliosis or deformity SKIN: No rashes CENTRAL NERVOUS SYSTEM: Essential tremors, no focal deficits, tone is normal in all 4 extremities. EXTREMITIES: There is no peripheral edema. No clubbing, no cyanosis. Peripheral pulses are intact. - Labs CBC & Chem 7: 08/01/24 06:26 08/01/24 06:26 Labs: Microbiology - Last 24 Hours (Table) 07/31/24 09:39 Gram Stain - Preliminary Sputum Sputum Culture - Preliminary Stenotrophomonas maltophilia Staphylococcus aureus Assessment and Plan Plan: Acute exacerbation of COPD, possibly triggered by MRSA pneumonia, possible ne navirus associated pneumonia possible aspiration. Progressive worsening in oxygenation. Failed Airvo and the patient was placed on a BiPAP and the patient is currently on pressures of 12/6 and an FiO2 of 100%. Oxygenation is stable.. Chest x-ray reveals new bilateral patchy opacities and repeat chest x-ray from 08/02/2024 shows confluent patchy bilateral pulmonary infiltrates consistent with pneumonia. Findings are slightly worse. Remains on IV Zyvox. Remains on IV Solu-Medrol. Acute COVID infection, currently on IV Solu-Medrol atrial fibrillation, with RVR started, off amiodarone drip and the patient is currently on oral amiodarone 400 mg p.o. twice a day and the patient is on anticoagulation with Eliquis Recent bronchoscopy with cultures positive for Corynebacterium in this patient who is somewhat immunocompromise because of his multiple myeloma the patient has chronic respiratory insufficiency/COPD/right hemidiaphragmatic paralysis and vocal cord paralysis. The patient completed a course of quinolones/Levaquin on outpatient basis. 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 Currently, the patient is on a combination of Symbicort and Spiriva and albuterol rescue inhaler 4 times a day [id number]. 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 Continue Solu-Medrol Continue Zyvox 600 mg twice daily IV Suggest broadening antibiotic coverage and case was discussed with cj cabrera and IV cefepime was also added Continue Symbicort, Spiriva and albuterol Jevity tube feedings for nutritional support Aspiration precautions Management of atrial fibrillation per cardiology. Prognosis is guarded DNR/DNI CODE STATUS
[2024-08-03 03:16] LABS: Glucose,Whole Blood 123 mg/dL (70-110)
[2024-08-03] MEDS: FUROSEMIDE 10 MG/ML 4 ML VIAL IV STA (03:23)
[2024-08-03 03:35] VITALS: BP 156/91; TEMP 98.8
--- NOTE | 2024-08-03 04:50 | XR ---
EXAM: XR Chest, 1 View CLINICAL HISTORY: ITS.REASON XR Reason: Resp distress TECHNIQUE: Frontal view of the chest. COMPARISON: No relevant prior studies available. FINDINGS: Lungs: Patchy bilateral airspace disease most severe within the right perihilar region. Pleural space: Bilateral pleural effusions. No pneumothorax. Heart: Moderate enlargement of the cardiac silhouette. Mediastinum: Unremarkable. Normal mediastinal contour. Bones/joints: Degenerative changes are seen within the right shoulder and spine. No acute fracture. Vasculature: Calcifications overlie the aorta. Tubes, lines and devices: Question of a percutaneous gastrostomy tube in place over the left upper quadrant. IMPRESSION: Bilateral pleural effusions and multifocal pneumonia.
[2024-08-03] MEDS: SCOPOLAMINE 1 MG/72 HR PATCH TRANSDERM SCH (05:16)
[2024-08-03] MEDS: MORPHINE SULFATE (100 MG/2 ML) 100 MG in SODIUM CHLORIDE 0.9% 100 ML IV SCH (05:27)
--- NOTE | 2024-08-03 05:32 | P.EN ---
Rapid response called at 0313 for acute respiratory distress and worsening hypoxia Patient is an 79-year-old male admitted back on July 26 with acute COPD exacerbation. COVID-positive and admitted with COVID-pneumonia with superimposed bacterial pneumonia. Initial sputum cultures were positive for MRSA and cornybacterium. Repeat sputum culture positive for MSSA and stenotrophomonas maltophilia. Current antibiotic regimen cefepime and Zyvox. Past medical history significant for multiple debilitating medical comorbidities including COPD, vocal cord paralysis, chronic dysphagia, multiple myeloma, hypertension, hyperlipidemia, atrial fibrillation, among other things. Over the course of the patient's hospitalization has had increased oxygen demands, previously on Airvo and transitioned to BiPAP yesterday. On my evaluation, patient is on BiPAP 12/6 and FiO2 100%. He is lethargic and confused. He is in respiratory distress with accessory muscle use. Tachypneic. He is hypoxic with an SpO2 reading high 70s to low 80s. Diffuse coarse lung sounds. Weak cough. Repeat chest x-ray done during the rapid response continues to show multifocal infiltrates, worsening on the right. Probable small pleural effusions. I did try to augment patient's noninvasive BiPAP settings to 15/10. Patient is a DO NOT RESUSCITATE/DO NOT INTUBATE. Family did later present to the bedside, and they are requesting to withdraw care at this time. Patient remains distress and is hypoxic despite BIPAP changes. Current family members include patient's spouse and decision maker, Lin. Patient's daughter, a hat finisher and son who is a RN are also present. We did have an extended conversation about the patient's hospitalization. They are requesting comfort care measures, and want the patient taken off of the BIPAP. We will contact admitting and honor the families' wishes.
[2024-08-03] MEDS: LORazepam 2 MG/ML INJ IV PRN (06:00)
--- NOTE | 2024-08-03 09:25 | P.PN ---
Subjective 79-year-old male patient with past medical history significant for atrial fibrillation, history of multiple myeloma, history of vocal cord paralysis, PEG tube in place, history of CVA, hypertension, rheumatoid arthritis, history of COPD who presented to ED for shortness of breath and productive cough. Patient reported that for the last couple of days he was having fever, productive cough, shortness of breath. Patient follows pulmonary as outpatient, on Breo DuoNebs and albuterol inhalers. Patient reported that he uses oxygen as needed at home. In the ED patient required supplemental oxygen, was afebrile, heart rate 85, respiratory rate 18, blood pressure 114/84, saturating 95% on 4 L. WBCs 8.6, hemoglobin 14.2, platelet 90. CO2 38. BUN 40, creatinine 0.79. Liver profile was unremarkable except albumin 3.0, ALT 55. COVID PCR was positive. Chest x-ray retrocardiac left basilar opacity, ongoing asymmetric elevation of right hemidiaphragm. 07/28/24--patient was seen and examined today. Patient feeling better today. at bedside. Afebrile, heart rate 70 respiratory rate 15 blood pressure 112/73 saturating 95% on 3 to 4 L oxygen. WBC 6.5, hemoglobin 12.3, platelets 95. BMP unremarkable. Patient reported that his shortness of breath and productive cough is better as compared to yesterday. Patient was started on Eliquis 2.5 mg twice daily yesterday per cardiology, cardiology recommended to check TSH and echocardiogram. Heart rate is controlled. Pulmonary on board and following. 07/29/24--patient was seen and examined today. Patient feeling better today. Continues complain of productive cough with significant sputum production. Patient elida afebrile, heart rate 67, respiratory rate 18, blood pressure 144/81, saturating 93% on 3 L. WBC 7.8, hemoglobin 12.9, platelets 94. BMP unremarkable. Patient reported blood culture growing MRSA, started on Zyvox. 07/30. Patient seen and examined. Complaining of shortness of breath on exertion. Currently on 3 L of oxygen 07/31. Patient seen examined. Patient went into respiratory distress this morning, was requiring 15 L of high flow nasal cannula. Ordered stat chest x- ray, proBNP, troponin, patient be transferred to stepdown 08/01/2024 Patient is still little bit tachypneic and dyspneic He has scattered wheezing Still on Airvo 60 L/min at 80% PEG tube is in place Cardiology already consulted after they signed off because he developed another A-fib and RVR today 08/02 Patient awake alert He is requiring BiPAP today with a setting of 12/6 and FiO2 of 100% compared to 60 L/min yesterday He still has coarse crepitation on exam but no significant wheezing Repeat chest x-ray today showing bilateral confluent opacities similar to previous are slightly worse. Patient currently remains on IV Solu-Medrol, Zyvox and Eliquis together with amiodarone and metoprolol started by supervisor yard for new onset A-fib 08/03 Patient breathing pattern got worse this morning and was placed on BiPAP Family were on board and they decided to proceed with comfort care measures Case was discussed with pulmonary team regarding this Currently patient lying up in bed, nonverbal unresponsive on BiPAP machine. Ativan 2 mg discharge this morning to try to take him off the BiPAP. He was placed on morphine drip He has some coarse secretions on pulmonary auscultation and scopolamine patch is already provided Multiple family members at the bedside including one of them his nurse practitioner L and a nurse. Family members believe patient is comfortable now. Prognosis remains very poor Objective - Vital Signs Vital signs: Vital Signs Temp 98.8 F 08/03/24 03:15 Pulse 97 08/03/24 06:46 Resp 29 H 08/03/24 06:46 BP 156/91 08/03/24 03:15 Pulse Ox 83 L 08/03/24 03:15 FiO2 100 08/03/24 08:02 Intake & Output 08/02/24 08/03/24 08/03/24 18:59 06:59 18:59 Intake Total 404.063 8.466 Output Total 800 Balance -395.937 8.466 Weight 73.5 kg 73.5 kg Intake: Intake, IV Titration 404.063 8.466 Amount Cefepime 2 gm In Sodium 100 Chloride 0.9% 100 ml @ 25 mls/hr IVPB Q8HR [facility] Rx# :[id number] Linezolid 600 mg In 300 Dextrose/Water 1 300ml. bag @ 150 mls/hr IVPB Q12HR [facility] Rx#:[id number] Morphine Sulfate (100 mg/ 4.063 8.466 2 ml) 100 mg In Sodium Chloride 0.9% 100 ml @ 1 MG/HR 1.02 mls/hr IV . Q24H [facility] Rx#:[id number] Output: Urine 800 Other: Voiding Method Indwelling Catheter Indwelling Catheter # Bowel Movements 1 - Exam GENERAL: The patient is alert and oriented x3, not in any acute distress. Well developed, well nourished. HEENT: Pupils are round and equally reacting to light. EOMI. No scleral icterus. No conjunctival pallor. Normocephalic, atraumatic. No pharyngeal erythema. No thyromegaly. CARDIOVASCULAR: S1 and S2 present. No murmurs, rubs, or gallops. -PULMONARY: Chest is with decreased air entry on both sides, bilateral scattered wheezing , no bilateral coarse crepitations. BiPAP mask is on ABDOMEN: Soft, nontender, nondistended, normoactive bowel sounds. No palpable organomegaly. MUSCULOSKELETAL: No joint swelling or deformity. EXTREMITIES: No cyanosis, clubbing, or pedal edema. NEUROLOGICAL: Gross neurological examination did not reveal any focal deficits. SKIN: No rashes. no petechiae. - Labs CBC & Chem 7: 08/01/24 06:26 08/01/24 06:26 Labs: Abnormal Lab Results - Last 24 Hours (Table) 08/03/24 Range/Units 03:15 POC Glucose (mg/dL) 123 H (70-110) mg/dL Microbiology - Last 24 Hours (Table) 07/31/24 09:39 Gram Stain - Preliminary Sputum Sputum Culture - Preliminary Stenotrophomonas maltophilia Staphylococcus aureus Assessment and Plan Assessment: Acute hypoxic respiratory failure Acute COPD exacerbation COVID-19 pneumonia MRSA pneumonia Vocal cord paralysis Right hemidiaphragm elevation A-fib with RVR PEG tube in place Multiple myeloma History of CVA Hypertension Phillips's esophagus BPH thrombocytopenia Plan: Continue with oxygen therapy and BiPAP as needed Aggressive bronchopulmonary hygiene Continue with oxygen supplementation Family decided to proceed with comfort care measures which is ordered CODE STATUS: No code Pulmonary team on the case Multiple family members at bedside and they agreeable with the plan so far Prognosis is very poor
[2024-08-03] MEDS: LORazepam 2 MG/ML INJ IV STA (09:48)
[2024-08-03 12:40] VITALS: PULSE 0; RESP 0
--- NOTE | 2024-08-03 13:26 | P.PN ---
Subjective Progress Note Date: 08/03/24 79-year-old male who is seen in the emergency department, on July 26, at 10:00 in the morning, for shortness of breath, and cough. The patient has a history of multiple medical problems, but apparently for the last couple of days, or maybe a bit longer, and has been having fever, and cough, and shortness of breath. The patient apparently sees my partner, for COPD. For COPD, he is typically on Breo, DuoNebs, and albuterol inhaler. He is seen today in the emergency department, room 28. He is on 2 L of oxygen. He does use home oxygen, as needed. Other medical history includes atrial fibrillation, COPD, CVA, GERD, hypertension, pneumonia, and rheumatoid arthritis. Laboratory data includes a white count 8.6, hemoglobin 14.2, hematocrit 42.2, and a platelet count of 90,000. Sodium 134, potassium 4.4, chlorides 94, CO2 38, BUN 40, creatinine 0.79. Albumin is 3. Viral screen was positive for coronavirus. Shows patchy retrocardiac left basilar opacity, which could be consistent with either atelectasis, or pneumonia. He also has an asymmetric elevation of the right hemidiaphragm. The patient is seen today July 27, 2024 in follow-up on the regular medical floor. He is currently sitting up in bed. Awake and alert in no acute distress. He is maintaining O2 saturations in the 90s on 4 L/min per nasal cannula. He has normal saline at 100 mL/h. He remains on Symbicort, albuterol, Decadron. Procalcitonin negative at 0.10. He does have a COVID infection. The patient is seen today July 28, 2024 in follow-up on the regular medical floor. He is currently resting comfortably in bed. Awake and alert in no acute distress. Maintaining good O2 saturations in the 90s on 4 L/min per nasal cannula. He is afebrile. Hemodynamically stable. Blood and sputum cultures revealed no growth. White count 6.5. Hemoglobin 12.3. Platelets 95,000. Sodium 142. Potassium 4.5. Bicarb 29. BUN 32. Creatinine 0.7. Glucose 122. He remains on Symbicort, Spiriva and albuterol. Normal saline at 100. Anticoagulated with Eliquis. Continued on Decadron. The patient is seen today July 29, 2024 in follow-up on the regular medical floor. He is currently sitting up in a chair at the bedside. Awake and alert in no acute distress. Breathing quite a bit easier today compared to yesterday. He is receiving normal saline at [facility]. His sputum culture is now positive for MRSA. Initiated on Zyvox 600 mg twice daily for 7 days. White count 7.8. Hemoglobin 12.9. Platelets 94,000. Sodium 143. Potassium 4.6. Bicarb 29. BUN 29. Creatinine 0.6. Glucose 112. He remains on Symbicort, Spiriva, albuterol, Decadron. Continued on Mucinex as needed. The patient is seen today July 30, 2024 in follow-up on the regular medical floor. He is currently resting in bed. Awake and alert in no acute distress. He has some copious secretions. He is working well with the flutter valve. Is maintaining O2 saturation in the 90s on 3 L/min per nasal cannula. He is been afebrile. Blood pressure stable. Sputum culture positive for MRSA and corynebacterium stratum group. He has been initiated on Zyvox. White count 9.0. Hemoglobin 13.2. Platelets 80,000. Sodium 140. Potassium 4.7. Bicarb 31. BUN 25. Creatinine 0.5. Glucose 92. He remains on Symbicort, albuterol, Spiriva. Remains on Decadron. Eliquis for DVT prophylaxis. The patient is seen today July 31, 2024 in follow-up on the regular medical floor. He is awake and alert in mild respiratory distress. His oxygen requirements have gone up he is currently on Airvo high flow oxygen at 60 L and 80% FiO2. X-ray reveals new bilateral multifocal acute infiltrates. He remains on albuterol, Symbicort, Spiriva. Remains on Decadron. Remains on Zyvox. Remains on Eliquis. On 08/01/2024, the patient is lethargic and weak again continues to have a congested cough. At the same time, the patient continues to be hypoxic and is currently on airvo with 60 l and fio2 of 80%. Following an earlier hospi talization for hemoptysis and bronchoscopy revealed corynebacterium, the patient was readmitted for worsening shortness of breath and hypoxic respiratory failure and the patient developed bilateral pneumonia. He was tested positive for COVID-19 and his symptom sputum culture showed corynebacterium and MRSA. Based on that, the patient was started on broad-spectrum antibiotics and currently he is on Zyvox and the patient is also on IV Solu-Medrol. He remains on a combination of Symbicort and tiotropium and albuterol HFA [id number]. He continues to have congested cough. Limited sputum production. Is also having issues with atrial fibrillation with rapid ventricular response and based on that the patient was started on amiodarone drip per protocol. The white cell count today is at 7.4 with a hemoglobin 15.2 and a platelet count of 117. BUN is 30 with a creatinine of 0.5 and a sodium level is 137. His procalcitonin level is at 0.07. He continues to receive enteral feeding for nutritional support. He is quite debilitated and weak. He remains on anticoagulation with Eliquis. A follow-up chest x-ray was obtained this morning and it showed asymmetric elevation of the right hemidiaphragm and patchy and confluent bilateral opacities demonstrating bilaterally consistent with pneumonia. On 08/02/2024, the patient is on BiPAP at a pressure of 12/60 remains reported an FiO2 of 100%. Pulse ox is 97%. He is weak and lethargic, having difficulties with cough. Unable to bring up much sputum. Has difficulties with communication. Repeat chest x-ray was done today and this was compared to the chest x-ray from yesterday. The patient continues to have multifocal patchy and confluent opacities at this could be slightly worse compared to yesterday's evaluation. He remains on IV Zyvox. Discussed the case with infectious disease. Decided to add also gram-negative coverage and the patient was started on IV cefepime. He remains on IV Solu-Medrol 60 mg every 6 hours. No fever. No chest pain. Continues to receive enteral feeding for nutritional support via PEG tube. Blood work from yesterday was noted. No new blood test from today. Procalcitonin level was 0.07. 08/03/2024, patient is being seen for a follow-up. Events from yesterday was noted. Noted the patient became more hypoxic and developed worsening respiratory distress. He was on a BiPAP for the past 24 to 48 hours. He was looking very much lethargic and confused and he was quite tachypneic and respiratory failure. At that point, and was informed and knowing that he is a DNR/DNI CODE STATUS, he was advised to end-of-life care. At this point in time, the patient is on a morphine drip. Calm and comfortable. Family at the bedside. No new labs are available from today. Most recent chest x-ray from earlier today showed bilateral multifocal pneumonia. Objective - Vital Signs Vital signs: Vital Signs Temp 98.8 F 08/03/24 03:15 Pulse 97 08/03/24 06:46 Resp 29 H 08/03/24 06:46 BP 156/91 08/03/24 03:15 Pulse Ox 83 L 08/03/24 03:15 FiO2 100 08/03/24 08:02 Intake & Output 08/02/24 08/03/24 08/03/24 18:59 06:59 18:59 Intake Total 404.063 8.466 Output Total 800 Balance -395.937 8.466 Weight 73.5 kg 73.5 kg Intake: Intake, IV Titration 404.063 8.466 Amount Cefepime 2 gm In Sodium 100 Chloride 0.9% 100 ml @ 25 mls/hr IVPB Q8HR [facility] Rx# :[id number] Linezolid 600 mg In 300 Dextrose/Water 1 300ml. bag @ 150 mls/hr IVPB Q12HR [facility] Rx#:[id number] Morphine Sulfate (100 mg/ 4.063 8.466 2 ml) 100 mg In Sodium Chloride 0.9% 100 ml @ 1 MG/HR 1.02 mls/hr IV . Q24H [facility] Rx#:[id number] Output: Urine 800 Other: Voiding Method Indwelling Catheter Indwelling Catheter # Bowel Movements 1 - Exam GENERAL EXAM: Unresponsive, currently on 15 L nasal cannula, high flow, agonal breathing HEAD: Normocephalic. EYES: Normal reaction of pupils, equal size. NOSE: Clear with pink turbinates. THROAT: No erythema or exudates. NECK: No masses, no JVD. CHEST: No chest wall deformity. LUNGS: Equal air entry with bilateral scattered rhonchi. Agonal breathing CVS: S1 and S2 normal with no audible murmur, irregular consistent with atrial fibrillation ABDOMEN: No hepatosplenomegaly, normal bowel sounds, no guarding or rigidity. SPINE: No scoliosis or deformity SKIN: No rashes CENTRAL NERVOUS SYSTEM: Unresponsive EXTREMITIES: There is no peripheral edema. No clubbing, no cyanosis. Peripheral pulses are intact. - Labs CBC & Chem 7: 08/01/24 06:26 08/01/24 06:26 Labs: Abnormal Lab Results - Last 24 Hours (Table) 08/03/24 Range/Units 03:15 POC Glucose (mg/dL) 123 H (70-110) mg/dL Microbiology - Last 24 Hours (Table) 07/31/24 09:39 Gram Stain - Final Sputum Sputum Culture - Final Stenotrophomonas maltophilia Methicillin resist S. aureus Assessment and Plan Plan: Acute exacerbation of COPD, possibly triggered by MRSA pneumonia, possible coronavirus associated pneumonia possible aspiration. The patient was being supported initially with high flow oxygen, Airvo and subsequently with a BiPAP and overnight his condition decompensated his breathing is currently agonal. He is a DNR/DNI CODE STATUS. End-of-life care measures have been introduced. Acute COVID infection atrial fibrillation, with RVR Recent bronchoscopy with cultures positive for Corynebacterium in this patient who is somewhat immunocompromise because of his multiple myeloma the patient has chronic respiratory insufficiency/COPD/right hemidiaphragmatic paralysis and vocal cord paralysis. The patient completed a course of quinolones/Levaquin on outpatient basis. 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 Currently, the patient is on a combination of Symbicort and Spiriva and albuterol rescue inhaler 4 times a day [id number]. 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 Chronic dysphagia and the patient has enteral feeding for nutritional support via PEG tube Multiple myeloma History of CVA, ambulate with the help of a cane History of fracture of the iliac crest History of recurrent pneumonias History of atrial flutter Atrial fibrillation with rapid ventricular response Previous history of history of pseudomonal tracheal bronchitis/pneumonia Plan: Family at the bedside Breathing is agonal Patient is comfortable on morphine drip Keep high flow oxygen nasal cannula Continue with end-of-life care Discussed the case with the family members at the bedside including the children and the .
== END 2024-08-03 13:52 | disposition expired | DRG 177 ==
LOC: EC 10:05 → 4SSUR 12:53 → 3SCARD 07-31 15:02
PROVIDERS: ADMIT Hospitalist; ATTEND Hospitalist
PROC: 3E0G76Z Introduction of Nutritional Substance into Upper GI, Via Natural or Artificial Opening (ICD-10-PCS; 2024-07-26)
PROC: 5A09457 Assistance with Respiratory Ventilation, 24-96 Consecutive Hours, Continuous Positive Airway Pressure (ICD-10-PCS; principal; 2024-08-01)
DX: U07.1 COVID-19 (principal); J12.82 Pneumonia due to coronavirus disease 2019; J96.01 Acute respiratory failure with hypoxia; J44.0 Chronic obstructive pulmonary disease with (acute) lower respiratory infection; J44.1 Chronic obstructive pulmonary disease with (acute) exacerbation; C90.00 Multiple myeloma not having achieved remission; I48.92 Unspecified atrial flutter; R64 Cachexia; J15.212 Pneumonia due to Methicillin resistant Staphylococcus aureus; K22.70 Barrett's esophagus without dysplasia; M06.9 Rheumatoid arthritis, unspecified; G62.9 Polyneuropathy, unspecified; N40.0 Benign prostatic hyperplasia without lower urinary tract symptoms; Z51.5 Encounter for palliative care; Z66 Do not resuscitate; J38.02 Paralysis of vocal cords and larynx, bilateral; I71.40 Abdominal aortic aneurysm, without rupture, unspecified; Z99.81 Dependence on supplemental oxygen; I27.20 Pulmonary hypertension, unspecified; D69.6 Thrombocytopenia, unspecified; I10 Essential (primary) hypertension; K21.9 Gastro-esophageal reflux disease without esophagitis; R53.81 Other malaise; I48.0 Paroxysmal atrial fibrillation; R13.10 Dysphagia, unspecified; Z91.81 History of falling; Z93.1 Gastrostomy status; Z71.3 Dietary counseling and surveillance; Z86.73 Personal history of transient ischemic attack (TIA), and cerebral infarction without residual deficits; Z79.01 Long term (current) use of anticoagulants; Z79.899 Other long term (current) drug therapy; Z79.51 Long term (current) use of inhaled steroids; Z88.1 Allergy status to other antibiotic agents; Z88.0 Allergy status to penicillin; Z87.01 Personal history of pneumonia (recurrent); Z87.891 Personal history of nicotine dependence
CPT/HCPCS: 36415; 71045; 71046; 80048; 80053; 83605; 83880; 84145; 84443; 84484; 85025; 85379; 87040; 87070; 87077; 87186; 87205; 87636; 93005; 93306; 94640; 94660; 94667; 94760; 96365; 96366; 99291